=== PATIENT | male | born 1985 ===

== ENCOUNTER 2022-02-06 11:43 | Inpatient (IN) | payer MEDICAID ==
[2022-02-06] MEDS ORDERED: PYRIDOSTIGMINE BROMIDE 60 MG TAB PO NR (12:22)
--- NOTE | 2022-02-06 12:23 | Emergency Department Report ---
HPI - General Chief Complaint: Pain General Time Seen by Provider: 02/06/22 11:56 - HPI HPI: Room 1 The patient is a 36-year-old male present with a chief complaint of myasthenia gravis crisis. Patient states last night he noticed he had difficulty sleeping and subsequently developed some difficulty breathing and diffuse muscle weakness which she states is the hallmark of his myasthenia gravis crisis. Patient states he has been compliant with medication and last took his pyridostigmine at 09: 00 this morning. 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 [facility] Past Medical Hx - Past Medical History Additional medical history: Myasthenia gravis - Surgical History Additional Surgical History: Left ear surgery - Family History Family history: no significant - Social History Smoking Status: Former Smoker Substance Use Type: None ED Review of Systems ROS: Stated complaint: MYASTHENIA GAVIS CRISIS Other details as noted in HPI Constitutional: malaise Eyes: denies: eye pain ENT: denies: throat pain Respiratory: shortness of breath Cardiovascular: denies: chest pain Endocrine: no symptoms reported Gastrointestinal: denies: abdominal pain Genitourinary: denies: dysuria Musculoskeletal: denies: back pain Neurological: denies: headache Physical Exam - Physical Exam Vital Signs: Vital Signs 02/06/22 11:47 Temperature 97.7 F Pulse Rate 99 H Blood Pressure 172/99 [Left] O2 Sat by Pulse 100 Oximetry Physical Exam: GENERAL: The patient is well-developed well-nourished male lying on stretcher appearing fatigued but in no acute distress. Patient answering questions appropriately HEENT: Normocephalic. Atraumatic. Extraocular motions are intact. Patient has moist mucous membranes. NECK: Supple. Trachea midline CHEST/LUNGS: Clear to auscultation. There is no respiratory distress noted. HEART/CARDIOVASCULAR: Regular. There is no tachycardia. There is no gallop rub or murmur. ABDOMEN: Abdomen is soft, nontender. Patient has normal bowel sounds. There is no abdominal distention. SKIN: There is no rash. There is no edema. There is no diaphoresis. NEURO: The patient is awake, alert, and oriented. The patient is cooperative. The patient has no focal neurologic deficits. The patient has normal speech. GCS MUSCULOSKELETAL: There is no evidence of acute injury. ED Course Vital Signs 02/06/22 11:47 Temperature 97.7 F Pulse Rate 99 H Blood Pressure 172/99 [Left] O2 Sat by Pulse 100 Oximetry - Consultations Consultation #1: 02/06/22 12:18 Pulp Mill Supervisor called 02/06/22 12:29 Case discussed with rn hemodialysis Dr Mcrae-we will admit to the ICU. Will come evaluate patient ED Medical Decision Making - Lab Data Result diagrams: 02/06/22 12:39 02/06/22 12:39 - Differential Diagnosis Myasthenia gravis crisis Critical care attestation.: If time is entered above; I have spent that time in minutes in the direct care of this critically ill patient, excluding procedure time. ED Disposition Clinical Impression: Myasthenia gravis in crisis Disposition: ADMITTED INPATIENT Is pt being admited?: Yes Does the pt Need Aspirin: No Condition: Serious Time of Disposition: 13:26 (Care transferred to hospitalist (Dr. Sal))
[2022-02-06 13:14] LABS: Basophils % (Auto) 0.2 % (0.0-1.8); Lymphocytes # (Auto) 0.5 K/mm3 (1.2-5.4); Lymphocytes % (Auto) 6.4 % (13.4-35.0); Mean Corpuscular HGB Conc 30 % (32-34); Mean Corpuscular Volume 74 fl (84-94); Monocytes # (Auto) 0.3 K/mm3 (0.0-0.8); Monocytes % (Auto) 4.1 % (0.0-7.3); Platelet Count 286 K/mm3 (140-440); Red Blood Count 5.75 M/mm3 (3.65-5.03); Red Cell Distribution Width 16.9 % (13.2-15.2)
[2022-02-06 13:20] LABS: Blood Urea Nitrogen 13 mg/dL (9-20); Calcium 9.3 mg/dL (8.4-10.2); Hemolysis Index 8
[2022-02-06 13:25] LABS: BUN/Creatinine Ratio 19
[2022-02-06 13:45] LABS: Hematocrit 42.6 % (35.5-45.6); Hemoglobin 12.9 gm/dl (11.8-15.2)
[2022-02-06] MEDS ORDERED: MORPHINE 4 MG/1 ML INJ IV PRN (13:59)
--- NOTE | 2022-02-06 14:01 | History and Physical Report ---
History of Present Illness Chief complaint: Im weak, History of present illness: 36 YO Male with MG currently taking Cellcept, Mycophenolate, and Prednisone presents ED for evaluation. Patient reports I feel weak". Patient states that he had experienced generalized weakness over the past 1 day with progressive and worsening symptoms over the same timeframe. Patient states that he was able to walk earlier today but he is unable to walk at the time my evaluation and is unable to lift or feel his lower extremities. Patient also acknowledges upper extremity weakness as well as difficulty speaking. EMS was notified and upon arrival the patient was found to be in distress and subsequently transported to [facility] for further care and evaluation of the aforementioned symptoms. The patient was seen and evaluated in the emergency department. All lab and imaging studies reviewed. Patient found to have myasthenia gravis crisis with increased risk for worsening symptoms as well as development of acute hypoxemic respiratory failure. Critical care team consulted. Patient placed on noninvasive positive pressure ventilation in the emergency department and admitted to ICU. IVIG ordered in the emergency department. Patient denies fever, chills, chest pain, palpitation productive cough, skin rash and recent Contact, known exposure to COVID-19. No prior admission for review. No medication listed at time of admission for reconciliation. Advanced care planning conducted in ED. Past History Past Medical History: other (See HPI) Past Surgical History: Other (Left ear surgery) Social history: single. denies: smoking, alcohol abuse, prescription drug abuse Family history: no significant family history, other (Reviewed) Medications and Allergies Allergies Allergy/AdvReac Type Severity Reaction Status Date / Time No Known Allergies Allergy Verified 02/06/22 11:49 Active Meds: Active Medications Acetaminophen (Acetaminophen 325 Mg Tab) 650 mg PO Q6H PRN PRN Reason: Pain MILD(1-3)/Fever >100.5/WEINBERG Albuterol (Albuterol 2.5 Mg/3 Ml Nebu) 2.5 mg IH Q3HRT PRN PRN Reason: Shortness Of Breath Sodium Chloride (Nacl 0.9% 1000 Ml) 1,000 mls @ 75 mls/hr IV DIRECT NESTOR Morphine Sulfate (Morphine 4 Mg/1 Ml Inj) 1 mg IV Q6H PRN PRN Reason: Pain , Severe (7-10) Oxycodone/Acetaminophen (Oxycodone /Acetaminophen 5-325mg Tab) 1 tab PO Q16H PRN PRN Reason: Pain, Moderate (4-6) Sodium Chloride (Sodium Chloride 0.9% 10 Ml Flush Syringe) 10 ml IV BID NESTOR Sodium Chloride (Sodium Chloride 0.9% 10 Ml Flush Syringe) 10 ml IV PRN PRN PRN Reason: LINE FLUSH Review of Systems Constitutional: weakness, no weight loss, no weight gain, no fever, no chills Ears, nose, mouth and throat: voice changes, no ear pain, no nasal discharge Cardiovascular: no chest pain, no orthopnea, no palpitations, no rapid/irregular heart beat, no syncope Respiratory: no cough, no excessive sputum, no hemoptysis, no shortness of breath Gastrointestinal: no abdominal pain, no vomiting, no diarrhea, no change in bowel habits Genitourinary Male: no hematuria, no flank pain, no discharge, no urinary frequency, no urinary hesitancy Rectal: no pain, no incontinence, no bleeding Musculoskeletal: no neck stiffness, no neck pain, no arm numbness/tingling, no low back pain Integumentary: no rash, no pruritis, no sores, no wounds, no jaundice Neurological: no head injury, no transient paralysis, no weakness, no parathesias, no tingling Psychiatric: no anxiety, no change in sleep habits, no insomnia, no hypersomnia, no change in libido, no disorientation Endocrine: no cold intolerance, no heat intolerance, no excessive thirst, no polyuria, no nocturia, no excessive sweating Hematologic/Lymphatic: no easy bruising, no easy bleeding Allergic/Immunologic: no allergic rhinitis Exam - Constitutional Vitals: Temp Pulse Resp BP Pulse Ox 97.7 F 78 18 143/74 99 02/06/22 11:47 02/06/22 12:15 02/06/22 12:15 02/06/22 12:15 02/06/22 12:15 General appearance: Present: mild distress - EENT Eyes: Present: PERRL ENT: hearing intact, clear oral mucosa - Neck Neck: Present: supple, normal ROM - Respiratory Respiratory effort: normal Respiratory: bilateral: diminished - Cardiovascular Heart Sounds: Present: S1 & S2. Absent: rub, click - Extremities Extremities: pulses symmetrical, No edema Peripheral Pulses: within normal limits - Abdominal General gastrointestinal: Present: soft, non-tender, non-distended, normal bowel sounds Male genitourinary: Present: normal - Integumentary Integumentary: Present: clear, warm, dry - Musculoskeletal Musculoskeletal: generalized weakness - Psychiatric Psychiatric: appropriate mood/affect, intact judgment & insight - Neurologic Neurologic: CNII-XII intact, no moves all extremities, no gait normal Results - Labs CBC & Chem 7: 02/06/22 12:39 02/06/22 12:39 Labs: Abnormal lab results 02/06/22 02/06/22 Range/Units 12:39 12:39 RBC 5.75 H (3.65-5.03) M/mm3 MCV 74 L (84-94) fl MCH 23 L (28-32) pg MCHC 30 L (32-34) % RDW 16.9 H (13.2-15.2) % Lymph % (Auto) 6.4 L (13.4-35.0) % Lymph # (Auto) 0.5 L (1.2-5.4) K/mm3 Seg Neutrophils % 89.3 H (40.0-70.0) % Potassium 3.5 L (3.6-5.0) mmol/L Chloride 109.1 H (98-107) mmol/L Carbon Dioxide 20 L (22-30) mmol/L Creatinine 0.7 L (0.8-1.3) mg/dL Glucose 113 H (75-100) mg/dL Assessment and Plan - Patient Problems (1) Myasthenia gravis in crisis Current Visit: No Status: Acute Plan to address problem: Critical care team consulted. IVIG, IV steroid therapy, supportive care. Continue medical management. Will consider plasma exchange if no improvement by hospital day 5. (2) Acute hypoxemic respiratory failure Current Visit: Yes Status: Acute Plan to address problem: Supplemental oxygen, pulse oximetry, nebulizer therapy, noninvasive positive pressure ventilation as clinically indicated, arterial blood gas. Patient admitted to ICU. The high probability of a clinically significant, sudden or life threatening deterioration of the [pulmonary, neuro] system(s) required my full and direct attention, intervention and personal management. The aggregate critical care time was [95] minutes. This time is in addition to time spent performing reported procedures but includes the following: [x] Data Review and interpretation [x] Patient assessment and monitoring of vital signs [x] Documentation [x] Medication orders and management (3) Obesity Current Visit: Yes Status: Acute Qualifiers: Body mass index: BMI 33.0-33.9 Plan to address problem: Balanced diet, increase physical activity discharge, outpatient pulmonary f ollow-up for sleep study, weight reduction. (4) DVT prophylaxis Current Visit: Yes Status: Acute Plan to address problem: SCD to bilateral lower extremities while in bed (5) Advance care planning Current Visit: Yes Status: Acute (6) Preventative health care Current Visit: Yes Status: Acute Plan to address problem: Patient counseled regarding medication compliance, safe driving, balanced diet, weight reduction, outpatient follow-up with primary care physician for all age and risk factor appropriate screening test. +30 minutes.
--- NOTE | 2022-02-06 14:05 | Consultation ---
History of Present Illness Consult date: 02/06/22 Requesting physician: REJI SINGH Reason for consult: other (Myesthenic Crises) History of present illness: PULMONARY/CCM CONSULT NOTE (Full dictation # [id number]) Please see dictated notes for full details Medications and Allergies Allergies Allergy/AdvReac Type Severity Reaction Status Date / Time No Known Allergies Allergy Verified 02/06/22 11:49 Active Meds: Active Medications Acetaminophen (Acetaminophen 325 Mg Tab) 650 mg PO Q6H PRN PRN Reason: Pain MILD(1-3)/Fever >100.5/[place] Albuterol (Albuterol 2.5 Mg/3 Ml Nebu) 2.5 mg IH Q3HRT PRN PRN Reason: Shortness Of Breath Sodium Chloride (Nacl 0.9% 1000 Ml) 1,000 mls @ 75 mls/hr IV DIRECT NESTOR Morphine Sulfate (Morphine 4 Mg/1 Ml Inj) 1 mg IV Q6H PRN PRN Reason: Pain , Severe (7-10) Oxycodone/Acetaminophen (Oxycodone /Acetaminophen 5-325mg Tab) 1 tab PO Q16H PRN PRN Reason: Pain, Moderate (4-6) Sodium Chloride (Sodium Chloride 0.9% 10 Ml Flush Syringe) 10 ml IV BID NESTOR Sodium Chloride (Sodium Chloride 0.9% 10 Ml Flush Syringe) 10 ml IV PRN PRN PRN Reason: LINE FLUSH Physical Examination Vital signs: Vital Signs Temp Pulse BP Pulse Ox 97.7 F 99 H 172/99 100 02/06/22 11:47 02/06/22 11:47 02/06/22 11:47 02/06/22 11:47 Results - Laboratory Findings CBC and BMP: 02/06/22 12:39 02/06/22 12:39 Abnormal lab findings: Abnormal Labs 02/06/22 02/06/22 12:39 12:39 RBC 5.75 H MCV 74 L MCH 23 L MCHC 30 L RDW 16.9 H Lymph % (Auto) 6.4 L Lymph # (Auto) 0.5 L Seg Neutrophils % 89.3 H Potassium 3.5 L Chloride 109.1 H Carbon Dioxide 20 L Creatinine 0.7 L Glucose 113 H
[2022-02-06 14:55] LABS: ABG Base Excess 0.4 mmol/L (-2.0-3.0); ABG HCO3 24.6 mmol/L (20.0-26.0); ABG Methemoglobin 0.5 % (0.0-1.5); ABG PCO2 38.2 mm Hg; ABG PH 7.426 pH Units (7.350-7.450); ABG PO2 84.1 mm Hg (80.0-90.0)
[2022-02-06] MEDS ORDERED: ALBUTEROL 2.5 MG/3 ML NEBU IH PRN (15:00)
[2022-02-06] MEDS ORDERED: MORPHINE 2 MG/1 ML INJ IV PRN (15:00)
[2022-02-06] MEDS ORDERED: IMMUNE GLOB GAM CAPR IV SCH (19:00)
[2022-02-06] MEDS: [UNRECOGNIZED DRUG - OTHER] IV SCH (20:06)
[2022-02-06] MEDS: IMMUNE GLOBUL IV SCH (20:06)
[2022-02-06] MEDS: GLY IV SCH (20:06)
[2022-02-06] MEDS: IGA AVG IV SCH (20:06)
[2022-02-06] MEDS ORDERED: FAMOTIDINE 20 MG TAB PO SCH (22:00)
[2022-02-06] MEDS: ENOXAPARIN 40 MG/0.4 ML INJ SUB-Q SCH (22:22)
[2022-02-06] MEDS: SODIUM CHLORIDE 0.9% 1000 ML 1,000 ML IV SCH (22:23)
--- NOTE | 2022-02-07 02:23 | Consultation ---
DATE OF CONSULTATION: 02/06/2022 PULMONARY CRITICAL CARE CONSULT NOTE CONSULTING PHYSICIAN: ___, ER doctor. REASON FOR CONSULTATION: 1. Shortness of breath. 2. Myasthenic crisis. CHIEF COMPLAINT AND HISTORY OF PRESENT ILLNESS: The patient is a 36-year-old obese male with past medical history significant for a diagnosis of myasthenia gravis for which he states he has been intubated in the past. He is followed according to the patient by a doctor in [place], Dr. Billie Delgado, neurologist, he tells me. He came into the Emergency Room today complaining of myasthenic crisis. He stated that last night he noticed he had difficulty sleeping and then developed some shortness of breath and diffuse muscle weakness. This is the way historically his crisis had begin. He has been compliant with his medications, which include pyridostigmine. He is also on CellCept according to the records and prednisone. 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 He was just driving through the [facility]. We were asked to assist with management. When I stopped by to see him, he was resting in bed. He was able to maintain a conversation. He was still able to write, his shackler strength was weak. His power in his lower extremities at best for me at that time was about a 2-3/5 with a best effort. He denied any chest pain. He denied any cough or expectoration. He denied any recent febrile illness. He states he has been compliant with his medications. He tells me he use a noninvasive ventilator at night, but is not sure if it is for a diagnosis of obstructive sleep apnea. He describes himself as a former smoker with less than [id number] tobacco smoking history. This really is as much of the history of presentation as I have. PAST MEDICAL HISTORY: 1. Myasthenia gravis. 2. Obesity. PAST SURGICAL HISTORY: He has had left ear surgery. MEDICATIONS: He was on at the time I stopped by to see him, according to the medication administration record included the following: Tylenol 650 mg p.o. q.6 hours p.r.n. mild pain or fever, albuterol 2.5 mg nebulized q.3 hours p.r.n. shortness of breath, morphine sulfate 1 mg IV q.6 hours p.r.n. severe pain, Percocet 5/325 one tablet p.o. q.16 hours p.r.n. moderate pain. He received 1 dose of pyridostigmine 60 mg earlier. ALLERGIES: No known drug allergies. DIET: Obese gentleman. Denies acute weight loss or gain in the preceding few weeks to months. FAMILY AND SOCIAL HISTORY: Lives in the community. Denies current alcohol, tobacco or illicit drug use or abuse. No significant family history otherwise. REVIEW OF SYSTEMS: No loss of consciousness. No new onset seizures. He does have a new onset generalized weakness. He denies polydipsia, polyuria. He denies any heat or cold intolerance. He denies any history of seizures. He denies gross hematochezia or melena. Denies gross hematuria. Denies hematemesis. Denies hemoptysis. He complains of blurry vision. A complete 13-system review of system was obtained. Pertinent positives and/or negatives as in body of history above, otherwise noncontributory. PHYSICAL EXAMINATION: VITAL SIGNS: At presentation, he was afebrile, temperature 97.7 degrees Fahrenheit, pulse of 99, respiratory rate of 18, blood pressure 172/99, O2 sats 100%, inspired oxygen concentration at that time was not recorded. When I stopped by to see him, his O2 sats were 99% on room air. GENERAL: Again, he is a young, obese male. Normocephalic, atraumatic, talking to me in mostly full sentences, but with mildly increased respiratory effort at rest. HEAD, EYES, EARS, NOSE AND THROAT: Anicteric. No conjunctival erythema. Oropharynx was moist. No gross jugular venous distention, no thyromegaly. He does have a large neck circumference. Grossly, there were no palpable lymph nodes in the supraclavicular or submandibular lymph node chains. LUNGS: Auscultation of both lung resendiz good bilateral air movement. No significant dullness to percussion. No wheezing. HEART: Sounds 1 and 2 are heard at the time of my evaluation. Regular rate and rhythm without overt rubs or murmurs. ABDOMEN: Soft, full, protuberant. Bowel sounds are positive, nontender, no palpable hepatosplenomegaly. EXTREMITIES: Without overt digital clubbing or cyanosis. No pedal edema. Pedal pulses are 2+ bilaterally. NEUROLOGIC: Pupils were equal, round, about 4 mm, reactive to light. Extraocular muscle movements were intact. He had spontaneous movements to all extremities, but the power in his upper extremities were about 3/5 at best and in the lower extremities 2-3/5. No spasticity, no fasciculations. SKIN: Normal turgor in the areas examined without overt cellulitis or rash. Please see the wound care nurses' notes for full description of his skin. PSYCHIATRIC: Mood was somewhat depressed. Affect was flat. He had intact judgment and insight. LABORATORY DATA: From my review are as follows: White cell count 8300, hemoglobin 12.9, hematocrit 42.6, platelet count 286. Serum sodium was 144, potassium 3.5, chloride 109, bicarbonate 20, BUN 13, creatinine 0.7, glucose was 113. No microbiology studies. No radiographic studies. ASSESSMENT: 1. Myasthenia crisis. 2. Obesity. 3. Possible obstructive sleep apnea/obesity hypoventilation syndrome. 4. Blurry vision. 5. Mild hypokalemia. 6. Mild metabolic acidosis. PLAN: We have discussed with the Neurology team. We have spoken with pharmacy. We should be able to get IVIG as a first line therapy. Order has been placed. The forced vital capacity has been done. It is about exactly at about 1.50 liters, I will put him empirically on bilevel positive airway pressure ventilation therapy 16 IPAP, 8 EPAP and a backup rate of 10. Arterial blood gas is going to be ordered and done now. Oxygen will be weaned to keep sats greater than or equal to about 90%. Aspiration precautions will be maintained. He will be continued on his other chronic disease medications. Hopefully, he shows progress. I will repeat the forced vital capacity in the morning. If he does decompensate further, it shows no improvement with the IVIG, transfer options will be sought to get him to a center where he can get plasmapheresis. We will hold on high dose steroids for now in case of a paradoxical reaction. He is going to be placed on GI prophylaxis as well as DVT prophylaxis. Flu and pneumonia vaccination will be addressed per protocol. Thank you very much for the consult. I should mention, he will be admitted to the intensive care unit. He is critically ill and will be placed on life-sustaining interventions including continuous noninvasive ventilation therapy at this time. He is at high risk of from cardiopulmonary system decompensation At this time, I spent about 35-40 minutes of critical care time without overlap and excluding any procedural time that may be necessary. Further interventions will depend on his course. TID: [id number] RECEIPT: [id number] FAUSTO/ILIANA
[2022-02-07 04:27] LABS: Basophils % (Auto) 0.7 % (0.0-1.8); Eosinophils % (Auto) 0.4 % (0.0-4.3); Hematocrit 36.6 % (35.5-45.6); Hemoglobin 11.5 gm/dl (11.8-15.2); Lymphocytes # (Auto) 1.7 K/mm3 (1.2-5.4); Lymphocytes % (Auto) 29.4 % (13.4-35.0); Mean Corpuscular HGB Conc 32 % (32-34); Mean Corpuscular Volume 72 fl (84-94); Monocytes # (Auto) 0.5 K/mm3 (0.0-0.8); Monocytes % (Auto) 9.1 % (0.0-7.3); Platelet Count 247 K/mm3 (140-440); Red Cell Distribution Width 17.3 % (13.2-15.2)
[2022-02-07 04:48] LABS: Alanine Aminotransferase 11 units/L (7-56); BUN/Creatinine Ratio 15; Blood Urea Nitrogen 12 mg/dL (9-20); Hemolysis Index 7
--- NOTE | 2022-02-07 08:44 | Progress Note ---
Assessment and Plan Myasthenic crisis Obesity Possible ANTON / OHS Blurry vision Mild hypokalemia Mild metabolic acidosis - attempt to give breaks of BIPAP during the day - get CT Chest in am to evaluate thymus / occult lesion (Has not had w/up yet per patient) - continue IVIG - repeat NIF (MIP) & VC maneuver - avoid aminoglycosides, flouroquinolones etc - neurology consultation - continue accuchecks with glycemic control per SSI (While critically ill target blood glucose of 140-180 mg/dL; avoid hypoglycemia) - continue to wean supplemental oxygen for target O2 sat's > 90% acutely - aspiration precautions - prn bronchodilators with pulmonary hygiene per RT - avoid nephrotoxins, renally dose all medications - continue to avoid benzodiazepine's, reduce the possibility of delirium - AB's per ID rec's - prn analgesia per pain score - Maintenance of sleep-wake cycle, avoid delirium - G.I. & VTE prophylaxis - PT/OT/ROM exercises - mobility protocols for pressure ulcer prophylaxis - Monitor hemodynamics closely - continue other care per attending / other consultants - discharge planning ongoing concurrently .... Re-evaluate in am & prn CONDITION: CRITICAL PROGNOSIS: GUARDED CODE STATUS: FULL CODE The high probability of a clinically significant, sudden or life-threatening deterioration of the [respiratory, cardiovascular & neurologic] system(s) required my full and direct attention, intervention and personal management. The aggregate critical care time was [34] minutes without overlap. Time includes spent on; [x] Data Review and interpretation [x] Patient assessment and monitoring of vital signs [x] Documentation [x] Medication orders and management Subjective Date of service: 02/07/22 Principal diagnosis: Myasthenic crisis; Obesity; Possible ANTON/OHS; Blurry vision; Hypokalemia Interval history: Patient is seen today for: Myasthenic crisis; Obesity; Possible ANTON / OHS; Blurry vision; Mild hypokalemia; Mild metabolic acidosis Seen and examined at bedside; 24hour events reviewed; nursing and respiratory care staff consulted; no adverse overnight events reported to me; resting in bed; blurry vision improved; feels a little stronger / about the same; denies chest pain; denies N/V/F/C Objective Vital Signs - 12hr 02/06/22 02/06/22 02/06/22 20:45 21:01 21:31 Temperature Pulse Rate 59 L 58 L 63 Pulse Rate [ None] Respiratory 15 12 24 Rate Blood Pressure 121/72 120/74 130/85 O2 Sat by Pulse 99 100 96 Oximetry 02/06/22 02/06/22 02/06/22 21:58 22:01 22:30 Temperature 97.8 F Pulse Rate 56 L 57 L Pulse Rate [ None] Respiratory 15 14 Rate Blood Pressure 126/73 118/77 O2 Sat by Pulse 100 100 Oximetry 02/06/22 02/06/22 02/06/22 22:56 22:59 23:00 Temperature Pulse Rate 56 L Pulse Rate [ 56 L None] Respiratory 14 15 17 Rate Blood Pressure 150/85 116/77 O2 Sat by Pulse 100 100 100 Oximetry 02/06/22 02/06/22 02/06/22 23:01 23:02 23:15 Temperature Pulse Rate 57 L 54 L 56 L Pulse Rate [ None] Respiratory 15 20 Rate Blood Pressure 116/77 124/77 O2 Sat by Pulse 100 100 Oximetry 02/07/22 02/07/22 02/07/22 00:00 01:00 02:01 Temperature Pulse Rate 49 L 47 L 47 L Pulse Rate [ None] Respiratory 16 15 14 Rate Blood Pressure 120/77 120/73 100/55 O2 Sat by Pulse 100 100 100 Oximetry 02/07/22 02/07/22 02/07/22 03:00 03:20 04:00 Temperature Pulse Rate 44 L 46 L Pulse Rate [ None] Respiratory 13 11 L Rate Blood Pressure 101/55 O2 Sat by Pulse 100 100 Oximetry 02/07/22 02/07/22 02/07/22 04:01 04:07 05:00 Temperature 98 F Pulse Rate 70 60 Pulse Rate [ None] Respiratory 13 26 H Rate Blood Pressure 111/62 O2 Sat by Pulse 100 100 Oximetry 02/07/22 02/07/22 02/07/22 05:01 06:00 07:54 Temperature Pulse Rate 50 L 64 54 L Pulse Rate [ None] Respiratory 14 15 18 Rate Blood Pressure 125/73 116/71 108/64 O2 Sat by Pulse 100 100 100 Oximetry Constitutional: no acute distress, other (young obese male on BIPAP ) Eyes: non-icteric ENT: oropharynx moist Neck: supple, no lymphadenopathy, no JVD, other (large circumference) Effort: mildly labored Ascultation: Bilateral: clear, diminished breath sounds Percussion: Bilateral: not dull Cardiovascular: regular rate and rhythm Gastrointestinal: normoactive bowel sounds, soft, non-tender, non-distended (protuberant) Integumentary: normal Extremities: no cyanosis, no edema, pulses normal, no ischemia or petechiae Neurologic: non-focal exam (grossly; generalized weakness), pupils equal and round, CN II-XII normal, other (power 3/5 bilaterally) CBC and BMP: 02/07/22 04:15 02/07/22 04:15 ABG, PT/INR, D-dimer: ABG ABG pH 7.426 pH Units (7.350-7.450) 02/06/22 13:59 ABG pCO2 38.2 mm Hg 02/06/22 13:59 ABG pO2 84.1 mm Hg (80.0-90.0) 02/06/22 13:59 ABG O2 Saturation 97.0 % (95.0-99.0) 02/06/22 13:59 Abnormal lab findings: Abnormal Labs 02/06/22 02/06/22 02/06/22 12:39 12:39 13:59 RBC 5.75 H Hgb MCV 74 L MCH 23 L MCHC 30 L RDW 16.9 H Lymph % (Auto) 6.4 L [place] % (Auto) Lymph # (Auto) 0.5 L Seg Neutrophils % 89.3 H ABG Hemoglobin 12.6 L Potassium 3.5 L Chloride 109.1 H Carbon Dioxide 20 L Creatinine 0.7 L Glucose 113 H 02/07/22 04:15 RBC 5.10 H Hgb 11.5 L MCV 72 L MCH 23 L MCHC RDW 17.3 H Lymph % (Auto) [place] % (Auto) 9.1 H Lymph # (Auto) Seg Neutrophils % ABG Hemoglobin Potassium Chloride Carbon Dioxide Creatinine Glucose CT scan - chest: pending Allied health notes reviewed: nursing
--- NOTE | 2022-02-07 09:15 | Progress Note ---
<MARNI RICHEY - Last Filed: 02/07/22 17:00> Assessment and Plan Assessment and plan: This is a 36-year-old male with known past medical history of obesity and myasthenia gravis admitted for myasthenia gravis crisis. Hospital Course to Date: 02/07: S/p X1 dose of IV IG overnight, patient reported feeling much better and stronger this am, moving all extremities. Plan to wean off Bipap this am. Okay to start a diet if patient pass bedside swallow. D/W CCM plan for CT chest w con tomorrow to r/o thymoma. Neurology consulted. 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 He was passing through [place] when symptoms started - Patient voiced compliance with home meds: Cellcept, Mycophenolate, and Prednisone - On IV IG X5days - Will consider plasma exchange if no improvement by hospital day 5 - CCM on consult, appreciated recommendations - Neurology consult pending - Patient reported that his neurologist in [place] is Dr. Billie Delgado #Acute Hypoxemic Respiratory Failure #Probable ANTON- On CPAP at home #Former Smoker - most likely related to MG crisis - Stable on Bipap this am - Continue O2 supplementation and wean as tolerated - Continue IV IG - Continue SPO2 monitoring for SPO2 goal above 92% - CCM on consult, appreciated recommendations #Obesity - Balanced diet, increase physical activity discharge, outpatient pulmonary foll ow-up for sleep study, weight reduction. #GI/DVT Prophylaxis - PPI- Pepcid - Lovenox SubQ - SCD to bilateral lower extremities while in bed #Advance Care Planning - Disease education data, care plan, diagnoses, and prognosis were discussed with patient at the bedside. Patient is a Full code. Patient acknowledged understanding and agreement with current care plan. - Patient reported in case of an emergency and he is unable to make his own decision, his NOK is his aunt who resides in [place], [place]. Heike Araujo, phone# The high probability of a clinically significant, sudden or life threatening deterioration of the [multiple] system(s) required my full and direct attention, intervention and personal management. The aggregate critical care time was [60] minutes. This time is in addition to time spent performing reported procedures but includes the following: [x] Data Review and interpretation [x] Patient assessment and monitoring of vital signs [x] Documentation [x] Medication orders and management Disposition Plan: ICU Total Time Spent with Patient (Minutes): 60 History Interval history: Patient seen and examined at the bedside. Fully AAO, on Bipap. Voiced felling much better and stronger this morning. Patient is moving all extremities with mild generalized weakness this am. No signs of any acute distress noted, VSS. ADAL overnight Hospitalist Physical - Constitutional Vitals: Temp Pulse Resp BP Pulse Ox 98 F 54 L 18 108/64 100 02/07/22 05:00 02/07/22 07:54 02/07/22 07:54 02/07/22 07:54 02/07/22 07:54 General appearance: Present: no acute distress, obese - EENT Eyes: Present: PERRL, EOM intact ENT: hearing intact - Neck Neck: Present: normal ROM - Respiratory Respiratory effort: normal Respiratory: bilateral: diminished - Cardiovascular Rhythm: regular Heart Sounds: Present: S1 & S2 - Extremities Extremities: no ischemia, pulses intact, pulses symmetrical Peripheral Pulses: within normal limits - Abdominal General gastrointestinal: soft, non-distended, normal bowel sounds - Integumentary Integumentary: Present: clear, warm, dry - Psychiatric Psychiatric: appropriate mood/affect, cooperative - Neurologic Neurologic: CNII-XII intact, moves all extremities (with generalized weakness) - Allied Health Allied health notes reviewed: nursing Results - Labs CBC & Chem 7: 02/07/22 04:15 02/07/22 04:15 Labs: Laboratory Last Values WBC 5.9 K/mm3 (4.5-11.0) 02/07/22 04:15 RBC 5.10 M/mm3 (3.65-5.03) H 02/07/22 04:15 Hgb 11.5 gm/dl (11.8-15.2) L 02/07/22 04:15 Hct 36.6 % (35.5-45.6) D 02/07/22 04:15 MCV 72 fl (84-94) L 02/07/22 04:15 MCH 23 pg (28-32) L 02/07/22 04:15 MCHC 32 % (32-34) 02/07/22 04:15 RDW 17.3 % (13.2-15.2) H 02/07/22 04:15 Plt Count 247 K/mm3 (140-440) 02/07/22 04:15 Lymph % (Auto) 29.4 % (13.4-35.0) 02/07/22 04:15 [place] % (Auto) 9.1 % (0.0-7.3) H 02/07/22 04:15 Eos % (Auto) 0.4 % (0.0-4.3) 02/07/22 04:15 Baso % (Auto) 0.7 % (0.0-1.8) 02/07/22 04:15 Lymph # (Auto) 1.7 K/mm3 (1.2-5.4) 02/07/22 04:15 [place] # (Auto) 0.5 K/mm3 (0.0-0.8) 02/07/22 04:15 Eos # (Auto) 0.0 K/mm3 (0.0-0.4) 02/07/22 04:15 Baso # (Auto) 0.0 K/mm3 (0.0-0.1) 02/07/22 04:15 Seg Neutrophils % 60.4 % (40.0-70.0) 02/07/22 04:15 Seg Neutrophils # 3.6 K/mm3 (1.8-7.7) 02/07/22 04:15 ABG pH 7.426 pH Units (7.350-7.450) 02/06/22 13:59 ABG pCO2 38.2 mm Hg 02/06/22 13:59 ABG pO2 84.1 mm Hg (80.0-90.0) 02/06/22 13:59 ABG HCO3 24.6 mmol/L (20.0-26.0) 02/06/22 13:59 ABG O2 Saturation 97.0 % (95.0-99.0) 02/06/22 13:59 ABG O2 Content 17.0 (0.0-44) 02/06/22 13:59 ABG Base Excess 0.4 mmol/L (-2.0-3.0) 02/06/22 13:59 ABG Hemoglobin 12.6 gm/dl (14.0-18.0) L 02/06/22 13:59 ABG Carboxyhemoglobin 1.2 % (0.0-5.0) 02/06/22 13:59 ABG Methemoglobin 0.5 % (0.0-1.5) 02/06/22 13:59 Oxyhemoglobin 95.4 % (95.0-99.0) 02/06/22 13:59 FiO2 21 % 02/06/22 13:59 Sodium 142 mmol/L (137-145) 02/07/22 04:15 Potassium 3.6 mmol/L (3.6-5.0) 02/07/22 04:15 Chloride 106.9 mmol/L (98-107) 02/07/22 04:15 Carbon Dioxide 24 mmol/L (22-30) 02/07/22 04:15 Anion Gap 15 mmol/L 02/07/22 04:15 BUN 12 mg/dL (9-20) 02/07/22 04:15 Creatinine 0.8 mg/dL (0.8-1.3) 02/07/22 04:15 Estimated GFR > 60 ml/min 02/07/22 04:15 BUN/Creatinine Ratio 15 % 02/07/22 04:15 Glucose 83 mg/dL (75-100) 02/07/22 04:15 Calcium 9.0 mg/dL (8.4-10.2) 02/07/22 04:15 Total Bilirubin 0.40 mg/dL (0.1-1.2) 02/07/22 04:15 AST 9 units/L (5-40) 02/07/22 04:15 ALT 11 units/L (7-56) 02/07/22 04:15 Alkaline Phosphatase 75 units/L (35-129) 02/07/22 04:15 Total Protein 7.0 g/dL (6.3-8.2) 02/07/22 04:15 Albumin 4.0 g/dL (3.9-5) 02/07/22 04:15 Albumin/Globulin Ratio 1.3 % 02/07/22 04:15 Roberson/IV: Voiding Method Urinal Active Medications - Current Medications Current Medications: Generic Name Dose Route Start Last Admin Trade Name Freq PRN Reason Stop Dose Admin Acetaminophen 650 mg 02/06/22 15:00 Acetaminophen 325 Mg Tab PO Q6H PRN Pain MILD(1-3)/Fever >100.5/WEINBERG Albuterol 2.5 mg 02/06/22 15:00 Albuterol 2.5 Mg/3 Ml Nebu IH Q3HRT PRN Shortness Of Breath Enoxaparin Sodium 40 mg 02/06/22 22:00 02/06/22 22:22 Enoxaparin 40 Mg/0.4 Ml Inj SUB-Q 40 mg QDAY@2200 NESTOR Administration Protocol Famotidine 20 mg 02/06/22 22:00 02/06/22 22:23 Famotidine 20 Mg Tab PO Not Given QHS NESTOR Sodium Chloride 1,000 mls @ 75 mls/hr 02/06/22 14:00 02/06/22 22:23 Nacl 0.9% 1000 Ml IV 75 mls/hr DIRECT NESTOR Administration IMMUNE GLOBUL G/GLY/IGA AVG 46 351 mls @ 100 mls/hr 02/06/22 19:00 02/06/22 23:59 20 gm/ IMMUNE GLOBUL G/GLY/ IV 02/10/22 22:31 Infused IGA AVG 46 10 gm/ IMMUNE Q24H NESTOR Infusion GLOBUL G/GLY/IGA AVG 46 5 gm/ Miscellaneous Information Morphine Sulfate 1 mg 02/06/22 15:00 Morphine 2 Mg/1 Ml Inj IV Q6H PRN Pain , Severe (7-10) Oxycodone/Acetaminophen 1 tab 02/06/22 15:00 Oxycodone /Acetaminophen 5-325mg Tab PO Q16H PRN Pain, Moderate (4-6) Sodium Chloride 10 ml 02/06/22 22:00 02/06/22 22:23 Sodium Chloride 0.9% 10 Ml Flush Syringe IV 10 ml BID NESTOR Administration Sodium Chloride 10 ml 02/06/22 13:59 Sodium Chloride 0.9% 10 Ml Flush Syringe IV PRN PRN LINE FLUSH <LELO ODONNELL - Last Filed: 02/08/22 07:17> Assessment and Plan Assessment and plan: I saw and evaluated the patient. I agree with the findings and the plan of care as documented in the Nurse Practitioner's~note, with the following corrections and additions. Attempted to transfer patient to [facility] but was declined due to lack of bed [facility] is not accepting, will try [facility] Hospitalist Physical - Constitutional Vitals: Temp Pulse Resp BP Pulse Ox 98.1 F 63 14 120/62 100 02/07/22 23:59 02/08/22 07:00 02/08/22 07:00 02/08/22 07:00 02/08/22 07:00 Results - Labs CBC & Chem 7: 02/08/22 04:23 02/08/22 04:23 Labs: Laboratory Last Values WBC 7.2 K/mm3 (4.5-11.0) 02/08/22 04:23 RBC 4.92 M/mm3 (3.65-5.03) 02/08/22 04:23 Hgb 11.0 gm/dl (11.8-15.2) L 02/08/22 04:23 Hct 36.2 % (35.5-45.6) 02/08/22 04:23 MCV 74 fl (84-94) L 02/08/22 04:23 MCH 22 pg (28-32) L 02/08/22 04:23 MCHC 30 % (32-34) L 02/08/22 04:23 RDW 17.1 % (13.2-15.2) H 02/08/22 04:23 Plt Count 225 K/mm3 (140-440) 02/08/22 04:23 Lymph % (Auto) 29.4 % (13.4-35.0) 02/07/22 04:15 [place] % (Auto) 9.1 % (0.0-7.3) H 02/07/22 04:15 Eos % (Auto) 0.4 % (0.0-4.3) 02/07/22 04:15 Baso % (Auto) 0.7 % (0.0-1.8) 02/07/22 04:15 Lymph # (Auto) 1.7 K/mm3 (1.2-5.4) 02/07/22 04:15 [place] # (Auto) 0.5 K/mm3 (0.0-0.8) 02/07/22 04:15 Eos # (Auto) 0.0 K/mm3 (0.0-0.4) 02/07/22 04:15 Baso # (Auto) 0.0 K/mm3 (0.0-0.1) 02/07/22 04:15 Seg Neutrophils % 60.4 % (40.0-70.0) 02/07/22 04:15 Seg Neutrophils # 3.6 K/mm3 (1.8-7.7) 02/07/22 04:15 ABG pH 7.367 pH Units (7.350-7.450) 02/07/22 12:00 ABG pCO2 44.1 mm Hg 02/07/22 12:00 ABG pO2 72.6 mm Hg (80.0-90.0) L 02/07/22 12:00 ABG HCO3 24.7 mmol/L (20.0-26.0) 02/07/22 12:00 ABG O2 Saturation 95.9 % (95.0-99.0) 02/07/22 12:00 ABG O2 Content 16.2 (0.0-44) 02/07/22 12:00 ABG Base Excess -0.7 mmol/L (-2.0-3.0) 02/07/22 12:00 ABG Hemoglobin 12.2 gm/dl (14.0-18.0) L 02/07/22 12:00 ABG Carboxyhemoglobin 1.1 % (0.0-5.0) 02/07/22 12:00 ABG Methemoglobin 0.5 % (0.0-1.5) 02/07/22 12:00 Oxyhemoglobin 94.4 % (95.0-99.0) L 02/07/22 12:00 FiO2 50 % 02/07/22 12:00 Sodium 142 mmol/L (137-145) 02/08/22 04:23 Potassium 3.9 mmol/L (3.6-5.0) 02/08/22 04:23 Chloride 109.3 mmol/L (98-107) H 02/08/22 04:23 Carbon Dioxide 23 mmol/L (22-30) 02/08/22 04:23 Anion Gap 14 mmol/L 02/08/22 04:23 BUN 12 mg/dL (9-20) 02/08/22 04:23 Creatinine 0.6 mg/dL (0.8-1.3) L 02/08/22 04:23 Estimated GFR > 60 ml/min 02/08/22 04:23 BUN/Creatinine Ratio 20 % 02/08/22 04:23 Glucose 94 mg/dL (75-100) 02/08/22 04:23 Calcium 8.6 mg/dL (8.4-10.2) 02/08/22 04:23 Total Bilirubin 0.40 mg/dL (0.1-1.2) 02/07/22 04:15 AST 9 units/L (5-40) 02/07/22 04:15 ALT 11 units/L (7-56) 02/07/22 04:15 Alkaline Phosphatase 75 units/L (35-129) 02/07/22 04:15 Total Protein 7.0 g/dL (6.3-8.2) 02/07/22 04:15 Albumin 4.0 g/dL (3.9-5) 02/07/22 04:15 Albumin/Globulin Ratio 1.3 % 02/07/22 04:15 Microbiology: Microbiology 02/07/22 12:30 Tracheal Aspirate Sputum Culture - Preliminary Roberson/IV: Voiding Method Urinal Active Medications - Current Medications Current Medications: Generic Name Dose Route Start Last Admin Trade Name Freq PRN Reason Stop Dose Admin Acetaminophen 650 mg 02/06/22 15:00 Acetaminophen 325 Mg Tab PO Q6H PRN Pain MILD(1-3)/Fever >100.5/WEINBERG Albuterol 2.5 mg 02/06/22 15:00 Albuterol 2.5 Mg/3 Ml Nebu IH Q3HRT PRN Shortness Of Breath Enoxaparin Sodium 40 mg 02/06/22 22:00 02/07/22 21:05 Enoxaparin 40 Mg/0.4 Ml Inj SUB-Q 40 mg QDAY@2200 NESTOR Administration Protocol Famotidine 20 mg 02/07/22 22:00 02/07/22 21:05 Famotidine 20 Mg/2 Ml Inj IV 20 mg BID NESTOR Administration Fentanyl 50 mcg 02/07/22 10:55 02/07/22 11:12 Fentanyl 100 Mcg/2 Ml Inj IV 50 mcg Q10MIN PRN Administration ANALGESIA Hydrophilic Ointment 1 applic 02/07/22 10:55 Lip Therapy Vaseline TP Q2HR PRN Dry Lips Sodium Chloride 1,000 mls @ 75 mls/hr 02/06/22 14:00 02/07/22 20:50 Nacl 0.9% 1000 Ml IV 75 mls/hr DIRECT NESTOR Administration IMMUNE GLOBUL G/GLY/IGA AVG 46 351 mls @ 100 mls/hr 02/06/22 19:00 02/07/22 23:37 20 gm/ IMMUNE GLOBUL G/GLY/ IV 02/10/22 22:31 Infused IGA AVG 46 10 gm/ IMMUNE Q24H NESTOR Infusion GLOBUL G/GLY/IGA AVG 46 5 gm/ Miscellaneous Information Fentanyl Citrate 2,000 mcg in 100 mls @ 5.11 mls/hr 02/07/22 11:00 02/08/22 05:32 Fentanyl Drip Premix IV 2 mcg/kg/hr TITR NESTOR 10.219 mls/hr Titration Protocol 1 MCG/KG/HR Morphine Sulfate 1 mg 02/06/22 15:00 Morphine 2 Mg/1 Ml Inj IV Q6H PRN Pain , Severe (7-10) Multi-Ingred Cream/Lotion/Oil/Oint 1 applic 02/07/22 10:55 Mineral Oil/Petrolatum, White Ophth Oint 3.5 Gm OU Q4HR PRN Dry Eye(s) Oxycodone/Acetaminophen 1 tab 02/06/22 15:00 Oxycodone /Acetaminophen 5-325mg Tab PO Q16H PRN Pain, Moderate (4-6) Senna/Docusate Sodium 1 tab 02/07/22 22:00 02/07/22 21:06 Sennosides/Docusate Sodium 8.6/50 Mg Tab FEEDTUBE 1 tab BID NESTOR Administration Sodium Chloride 10 ml 02/06/22 22:00 02/07/22 21:05 Sodium Chloride 0.9% 10 Ml Flush Syringe IV 10 ml BID NESTOR Administration Sodium Chloride 10 ml 02/06/22 13:59 Sodium Chloride 0.9% 10 Ml Flush Syringe IV PRN PRN LINE FLUSH Nutrition/Malnutrition Assess - Dietary Evaluation Nutrition/Malnutrition Findings: Nutrition Notes Start: 02/07/22 13:09 Freq: Status: Active Protocol: Document 02/07/22 13:09 PRADEEP (Rec: 02/07/22 13:44 PRADEEP [id number]) Nutrition Notes Need for Assessment generated from: MD Order Initial or Follow up Assessment Other Pertinent Diagnosis Myasthenia Gravis. Current Diet NPO (since 02/06 13:59), TF- Jevity 1.2 Zana @ 70 ml/hr ( from D 02/07). Labs/Tests 02/07: WNL. Pertinent Medications 02/07: nutritionally unremarkable. Height 5 ft 10 in Weight 102.194 kg [place] Body Weight (kg) 75.45 BMI 32.3 Intake Prior to Admission Good Weight change and time frame Pt denies having loss body weight [employer]. Weight Status Obese Subjective/Other Information RD consult for difficulty chewing assessment and write/ manage TF. Pt currently on NPO. Pt is on Mechanical ventilation, O2 saturation @ 100%, according to Mechanical Ventilation History Assessment notes. Pt was intubated at 11:00 on 02/07, according to Event notes. Pt awaiting for tranfer to [facility], according to Event notes. Percent of energy/protein needs met: Pt currently on NPO. Prescribed TF-Jevity 1.2 Zana @ 70 ml/hr provides for energy/ protein needs (2,010 Kcal/93 g ) during LOS, 98% Kcal; 104% AA. Burn Absent Trauma Absent GI Symptoms None Food Allergy No Skin Integrity/Comment Assessment WNL. Current % PO Other Minimum of two criteria No Fluid Accumulation N/A Reduced Jacquard Card Lacer Strength N/A (non-severe) Protein-Calorie Malnutrition N\A #1 Nutrition Diagnosis Inadequate oral intake Etiology Pt is on Mechanical Ventilation. As Evidenced by Signs and Symptoms Pt currently on NPO. Is patient on ventilator? Yes Is Patient Ambulatory and/or Out of Bed No REE-([facility]-confined to bed) 2352.060 Kcal/Kg value to use for calculation 20 Approximate Energy Requirements Using 2044 kcal/Kg Calculation Used for Recommendations Kcal/kg Additional Notes Protein: 0.8-1 g/Kg AdjBW; 71- 89 g/day. Fluids: 1 ml/Kcal, or as per MD. Nutrition Intervention Nutrition Support: Start TF-Jevity 1.2 Zana @ 70 ml/hr. Flush: 120 ml water Q 4 hr, or as per MD. Kcal 2,010 Protein (gm) 93 Carbohydrates (gm) 284 Fat (gm) 66 Fluid (mL) 1,352 Fiber (gm) 30 % RDI: 98% Kcal; 104% AA. Goal #1 Provide at least 75% of energy /protein needs through Enteral Feeding during LOS. Follow-Up By: 02/09/22 Additional Comments Start monitoring TF tolerance and BM.
[2022-02-07] MEDS ORDERED: IMMUNE GLOBULIN G/GLY/IGA AVG 46 10 GM/100 ML VIAL IV SCH (10:00)
[2022-02-07] MEDS ORDERED: ROCURONIUM 50 MG/5 ML INJ IV ONE (10:55)
[2022-02-07] MEDS ORDERED: LIP THERAPY VASELINE TP PRN (10:55)
[2022-02-07] MEDS ORDERED: SUCCINYLCHOLINE CHLORIDE 200 MG/10 ML INJ MDV ONE (10:55)
[2022-02-07] MEDS ORDERED: fentaNYL 100 MCG/2 ML INJ IV PRN (10:55)
[2022-02-07] MEDS ORDERED: MINERAL OIL/PETROLATUM, WHITE OPHTH OINT 3.5 GM OU PRN (10:55)
[2022-02-07] MEDS ORDERED: ETOMIDATE 20 MG/10 ML INJ IV ONE (10:55)
[2022-02-07] MEDS ORDERED: propofoL 200 MG/20 ML VIAL IV ONE ×2 (11:00→11:26)
[2022-02-07] MEDS: fentaNYL DRIP Premix 2,000 MCG/100 ML BAG IV SCH ×3 (11:14→18:28)
[2022-02-07] MEDS ORDERED: SCOPOLAMINE TRANSDERMAL PATCH 72 HR TD ONE (11:22)
--- NOTE | 2022-02-07 11:23 | Event Note ---
Date: 02/07/22 Alerted by nursing staffs that patient complained of difficulty breathing. Upon assessment, patient appeared flushed, and unable to hold his head up and drooling. Patient remains fully AAO, reported that he is getting worst and is having difficultly breathing, SPO2 remains at 100%. Contacted the hotel office manager, Dr. Martinez, he recommended stat intubation. Patient agreed to intubation and was successfully intubated at the bedside by anesthesia. Patient is now stable on the vent, Fio2 at 50%, Peep of 6, rate 14, VT 450. stat Chest X-ray ordered for ETT placement. Giving the sudden progression of patient's condition, transfer process to a tertiary center was initiated. Patient is on the waiting list for possible transfer to [facility]. Per patient's request, NOK who is his aunt, Heike Araujo, was notified @ . Patient's diagnosis, recent events, and plan of care were thoroughly discussed, including possible transfer to [facility]. All questions and concerns were addressed at this time. Patient's aunt verbalized understanding of the info provided and agreed to current care plan. Team will continue to follow up with any further updates. +CTT 30minutes
--- NOTE | 2022-02-07 11:25 | Event Note ---
Date: 02/07/22 02/07/2022, 11:00-11:10 Anesthesia called to bedside for intubation, 36 male, difficult breathing, drooling from mouth, H/O Myasthenia Gravis disease. VSS, Id'd patient, he acknowledged the need to be intubated and has had this before. RT, RN, ER DR at bedside. IV induction with 200 mg propofol IV, Oral intubations with 3 mac glide scope, 7.[address] with out difficulty, +etco2 indicator color change, BBS, Chest rise, ETT 20 at teeth, VSS stable. Care resumed by RT and ICU staff.
[2022-02-07] MEDS ORDERED: SCOPOLAMINE TRANSDERMAL PATCH 72 HR TD SCH ×2 (12:00→14:00)
--- NOTE | 2022-02-07 12:37 | XRay Report ---
CHEST 1 VIEW INDICATION: ETT placement. COMPARISON: None. FINDINGS: Support devices: Endotracheal tube tip is in satisfactory position approximately 2 cm above the celena a. Esophagogastric tube extends into the stomach. Heart: Stable. Lungs/Pleura: There are low lung volumes with presumed atelectatic change in the right lung base. No pneumothorax. IMPRESSION: 1. Endotracheal tube is in satisfactory position. Signer Name: Yoan Marcano MD Signed: 02/07/2022 12:32 PM Workstation Name: [id number]
--- NOTE | 2022-02-07 12:38 | XRay Report ---
ABDOMEN 1 VIEW INDICATION / CLINICAL INFORMATION: tube placement. COMPARISON: None available. FINDINGS: TUBES / LINES: An esophagogastric tube terminates over the proximal gastric body. BOWEL GAS PATTERN: No significant abnormality. FREE AIR / EXTRALUMINAL GAS: None seen. ADDITIONAL FINDINGS: No significant additional findings. IMPRESSION: Satisfactory positioning of the esophagogastric tube. No acute findings. Signer Name: Riaz Garcia MD Signed: 02/07/2022 12:34 PM Workstation Name: [employer]
[2022-02-07 12:53] LABS: ABG Base Excess -0.7 mmol/L (-2.0-3.0); ABG HCO3 24.7 mmol/L (20.0-26.0); ABG Methemoglobin 0.5 % (0.0-1.5); ABG Oxygen Saturation 95.9 % (95.0-99.0); ABG PCO2 44.1 mm Hg; ABG PH 7.367 pH Units (7.350-7.450); ABG PO2 72.6 mm Hg (80.0-90.0)
--- NOTE | 2022-02-07 17:23 | Consultation ---
History of Present Illness Consult date: 02/07/22 Chief complaint: MG History of present illness: The patient comes in for weakness which is generalized and patient MG on immunosuppressive therapy, was intubated this am, per note the patient did recieve IVIG 1 st dose and was doing well, the patients last IVIG in hospital in [facility] was 3 months back. Past History Past Medical History: other (See HPI) Past Surgical History: Other (Left ear surgery) Social history: single. denies: smoking, alcohol abuse, prescription drug abuse Family history: no significant family history, other (Reviewed) Medications and Allergies Allergies Allergy/AdvReac Type Severity Reaction Status Date / Time No Known Allergies Allergy Verified 02/06/22 11:49 Home Medications Medication Instructions Recorded Confirmed Last Taken Type Mycophenolate [Cellcept] 1,000 mg PO BID 02/06/22 02/06/22 Unknown History Pyridostigmine [Mestinon] 180 mg PO DAILY 02/06/22 02/06/22 Unknown History predniSONE 10 mg PO QDAY 02/06/22 02/06/22 Unknown History Active Meds: Active Medications Acetaminophen (Acetaminophen 325 Mg Tab) 650 mg PO Q6H PRN PRN Reason: Pain MILD(1-3)/Fever >100.5/[place] Albuterol (Albuterol 2.5 Mg/3 Ml Nebu) 2.5 mg IH Q3HRT PRN PRN Reason: Shortness Of Breath Enoxaparin Sodium (Enoxaparin 40 Mg/0.4 Ml Inj) 40 mg SUB-Q QDAY@2200 NESTOR; Protocol Last Admin: 02/06/22 22:22 Dose: 40 mg Famotidine (Famotidine 20 Mg/2 Ml Inj) 20 mg IV BID NESTOR Fentanyl (Fentanyl 100 Mcg/2 Ml Inj) 50 mcg IV Q10MIN PRN PRN Reason: ANALGESIA Last Admin: 02/07/22 11:12 Dose: 50 mcg Hydrophilic Ointment (Lip Therapy Vaseline) 1 applic TP Q2HR PRN PRN Reason: Dry Lips Sodium Chloride (Nacl 0.9% 1000 Ml) 1,000 mls @ 75 mls/hr IV DIRECT NESTOR Last Admin: 02/06/22 22:23 Dose: 75 mls/hr IMMUNE GLOBUL G/GLY/IGA AVG 46 20 gm/ IMMUNE GLOBUL G/GLY/IGA AVG 46 10 gm/ IMMUNE GLOBUL G/GLY/IGA AVG 46 5 gm/Miscellaneous Information 351 mls @ 100 mls/hr IV Q24H [facility] Stop: 02/10/22 22:31 Last Infusion: 02/06/22 23:59 Dose: Infused Fentanyl Citrate (Fentanyl Drip Premix) 2,000 mcg in 100 mls @ 5.11 mls/hr IV TITR NESTOR; Protocol Last Titration: 02/07/22 11:35 Dose: 2 mcg/kg/hr, 10.219 mls/hr Morphine Sulfate (Morphine 2 Mg/1 Ml Inj) 1 mg IV Q6H PRN PRN Reason: Pain , Severe (7-10) Multi-Ingred Cream/Lotion/Oil/Oint (Mineral Oil/Petrolatum, White Ophth Oint 3.5 Gm) 1 applic OU Q4HR PRN PRN Reason: Dry Eye(s) Oxycodone/Acetaminophen (Oxycodone /Acetaminophen 5-325mg Tab) 1 tab PO Q16H PRN PRN Reason: Pain, Moderate (4-6) Scopolamine (Scopolamine Transdermal Patch 72 Hr) 1 each TD ONCE@1400 [facility] Stop: 02/07/22 18:00 Senna/Docusate Sodium (Sennosides/Docusate Sodium 8.6/50 Mg Tab) 1 tab FEEDTUBE BID [facility] Sodium Chloride (Sodium Chloride 0.9% 10 Ml Flush Syringe) 10 ml IV BID [facility] Last Admin: 02/07/22 12:16 Dose: 10 ml Sodium Chloride (Sodium Chloride 0.9% 10 Ml Flush Syringe) 10 ml IV PRN PRN PRN Reason: LINE FLUSH Physical Examination - Vital Signs Vital Signs: Vital Signs Temp Pulse BP Pulse Ox 97.7 F 99 H 172/99 100 02/06/22 11:47 02/06/22 11:47 02/06/22 11:47 02/06/22 11:47 - Physical Exam Narrative exam: 1. The patient is alert, moves all 4 extremity, is currently intubated, and is able to respond by writing . Results - Laboratory Findings CBC and BMP: 02/07/22 04:15 02/07/22 04:15 Abnormal Lab Findings: Abnormal Labs 02/06/22 02/06/22 02/06/22 12:39 12:39 13:59 RBC 5.75 H Hgb MCV 74 L MCH 23 L MCHC 30 L RDW 16.9 H Lymph % (Auto) 6.4 L [place] % (Auto) Lymph # (Auto) 0.5 L Seg Neutrophils % 89.3 H ABG pO2 ABG Hemoglobin 12.6 L Oxyhemoglobin Potassium 3.5 L Chloride 109.1 H Carbon Dioxide 20 L Creatinine 0.7 L Glucose 113 H 02/07/22 02/07/22 04:15 12:00 RBC 5.10 H Hgb 11.5 L MCV 72 L MCH 23 L MCHC RDW 17.3 H Lymph % (Auto) [place] % (Auto) 9.1 H Lymph # (Auto) Seg Neutrophils % ABG pO2 72.6 L ABG Hemoglobin 12.2 L Oxyhemoglobin 94.4 L Potassium Chloride Carbon Dioxide Creatinine Glucose Assessment and Plan 1. Myasthenia Crisis - Needs a total of 5 days of IVIG ( 0.4 g/kg body weight ) . 2. If no clinical improvement in 5 days consider Plasma Exchange . 3. Consider Extubating the patient by Saturday AM . 4. Restart All Home Immunosuppresive Medications . 5. Follow up in am. 6. I wiil try to reach out the Patient Neurologist in [place] . Dr Bonifacio Mccoy
[2022-02-07] MEDS: IGA AVG IV SCH (20:50)
[2022-02-07] MEDS: IMMUNE GLOBUL IV SCH (20:50)
[2022-02-07] MEDS: GLY IV SCH (20:50)
[2022-02-07] MEDS: [UNRECOGNIZED DRUG - OTHER] IV SCH (20:50)
[2022-02-07] MEDS: SODIUM CHLORIDE 0.9% 1000 ML 1,000 ML IV SCH (20:50)
[2022-02-07] MEDS: ENOXAPARIN 40 MG/0.4 ML INJ SUB-Q SCH (21:05)
[2022-02-07] MEDS: SENNOSIDES/DOCUSATE SODIUM 8.6/50 MG TAB FEEDTUBE SCH (21:06)
[2022-02-07] MEDS ORDERED: FAMOTIDINE 20 MG/2 ML INJ IV SCH (22:00)
[2022-02-08] MEDS: fentaNYL DRIP Premix 2,000 MCG/100 ML BAG IV SCH ×2 (00:33→08:29)
--- NOTE | 2022-02-08 05:09 | XRay Report ---
CHEST 1 VIEW INDICATION / CLINICAL INFORMATION: follow up respiratory failure. COMPARISON: Chest x-ray 02/07/2022 FINDINGS: SUPPORT DEVICES: Stable, satisfactory device positioning. HEART / MEDIASTINUM: Borderline to mild cardiomegaly appears stable. LUNGS / PLEURA: Discoid atelectasis right lung base. Lungs otherwise are clear. BONES: No significant osseous abnormality. ADDITIONAL FINDINGS: No significant additional findings. IMPRESSION: 1. Slightly more organized discoid atelectasis right lung base. Otherwise lungs are clear. Satisfacto ry positioning of tubes and lines. Signer Name: Gerardo Pena II, MD Signed: 02/08/2022 5:05 AM Workstation Name: [id number]
[2022-02-08 05:12] LABS: Mean Corpuscular HGB Conc 30 % (32-34); Mean Corpuscular Volume 74 fl (84-94); Platelet Count 225 K/mm3 (140-440); Red Blood Count 4.92 M/mm3 (3.65-5.03); Red Cell Distribution Width 17.1 % (13.2-15.2)
[2022-02-08 05:16] LABS: Hematocrit 36.2 % (35.5-45.6)
--- NOTE | 2022-02-08 05:21 | Cat Scan Report ---
CT CHEST WITH CONTRAST INDICATION / CLINICAL INFORMATION: M.Gravis/Thymoma. TECHNIQUE: Axial CT images were obtained through the chest after 100 cc Omnipaque [address] l CT scans at this location are performed using CT dose reduction for ALARA by means of automated exp osure control. COMPARISON: Chest x-ray same date FINDINGS: CHEST LOWER NECK: Soft tissues and musculature of the lower neck demonstrate no significant abnormality. Th e thyroid demonstrates no significant abnormality. THORACIC AORTA: No significant abnormality. PULMONARY ARTERY:No significant abnormality. HEART: No significant abnormality. CORONARY ARTERY CALCIFICATION: Absent -- None. MEDIASTINUM / ALEYDA: No CT evidence of thymoma. ESOPHAGUS: No significant abnormality. Esophagogastric tube is present. LYMPH NODES: No adenopathy demonstrated within the axilla, aleyda, or mediastinum. LUNGS: Endotracheal tube terminates above the cole. Subsegmental atelectasis right middle lobe and bilateral lower lobes. Superimposed infectious process not excluded. PLEURA: No pleural effusion. No pneumothorax. THORACIC SOFT TISSUES: Moderate bilateral gynecomastia. OSSEOUS STRUCTURES: No significant abnormality of included osseous structures. UPPER ABDOMEN: 2 hypoattenuating lesions of the liver in the right hepatic lobe demonstrated. The lar ayla measures up to 2 cm. One of these demonstrates peripheral puddling of contrast compatible with he patic hemangioma. The second demonstrates no distinct or specific pattern of enhancement. Upper pole cyst of the left kidney. ADDITIONAL CHEST FINDINGS: None. IMPRESSION: 1. No CT evidence of thymoma. 2. Hypoattenuating lesions of the liver statistically reflect hepatic hemangiomas. One of these lesio ns demonstrate characteristic peripheral puddling of contrast, the second does not clearly demonstrat e specific pattern of enhancement. Ultrasound targeting these lesions may be useful for further felix cterization and confirmation of hemangioma. 3. Moderate subsegmental atelectasis of the bilateral lungs. 4. Satisfactory positioning of endotracheal tube and esophagogastric tube. Signer Name: Gerardo Pena II, MD Signed: 02/08/2022 5:16 AM Workstation Name: [id number]
[2022-02-08 05:31] LABS: BUN/Creatinine Ratio 20; Blood Urea Nitrogen 12 mg/dL (9-20); Calcium 8.6 mg/dL (8.4-10.2); Hemolysis Index 19
[2022-02-08] MEDS: predniSONE 10 MG TAB PO SCH (09:43)
[2022-02-08] MEDS: SENNOSIDES/DOCUSATE SODIUM 8.6/50 MG TAB FEEDTUBE SCH ×2 (09:43→21:11)
[2022-02-08] MEDS: FAMOTIDINE 20 MG TAB FEEDTUBE SCH ×2 (09:43→21:11)
[2022-02-08] MEDS: PYRIDOSTIGMINE BROMIDE 60 MG TAB PO SCH (09:43)
[2022-02-08 09:46] LABS: ABG Base Excess -1.1 mmol/L (-2.0-3.0); ABG Methemoglobin 0.5 % (0.0-1.5); ABG Oxygen Saturation 97.9 % (95.0-99.0); ABG PCO2 48.2 mm Hg; ABG PH 7.333 pH Units (7.350-7.450); ABG PO2 114.7 mm Hg (80.0-90.0)
--- NOTE | 2022-02-08 10:28 | Progress Note ---
Assessment and Plan Myasthenic crisis, now on MVS Obesity Possible ANTON / OHS Blurry vision Mild hypokalemia Mild metabolic acidosis -continue IVIG to complete course -If no improvement, will need plasmapharesis per Neurology - avoid aminoglycosides, flouroquinolones -keep potassium at 4, Mag at 2 and Phos at >2.5 - neurology consultation- notes reviewed -Daily SAT and SBT assessment as tolerated - continue to titrate supplemental oxygen to keep SpO2 90-92% - VAP bundle addressed, aspiration precautions HOB >40 - continue lung protective strategies - continue bronchodilators with pulmonary hygiene per RT - continue accuchecks with glycemic control per SSI (While critically ill target blood glucose of 140-180 mg/dL; avoid hypoglycemia) - avoid nephrotoxins, renally dose all medications - continue to avoid benzodiazepines, reduce the possibility of delirium - prn analgesia per CPOT score - Maintenance of sleep-wake cycle, avoid delirium - continue enteral nutritional support at goal rate as tolerated - VTE prophylaxis- Heparin -Stress ulcer prophylaxis- Famotidine - mobility, off loading and frequent turning per facility protocol to prevent pressure ulcers - Monitor hemodynamics closely - continue other care per attending / other consultants CONDITION: CRITICAL PROGNOSIS: GUARDED CODE STATUS: FULL CODE The high probability of a clinically significant, sudden or life-threatening deterioration of the [respiratory, neurologic] system(s) required my full and direct attention, intervention and personal management. The aggregate critical care time was [35] minutes without overlap. Time includes spent on; [x] Data Review and interpretation [x] Patient assessment and monitoring of vital signs [x] Documentation [x] Medication orders and management Subjective Date of service: 02/08/22 Principal diagnosis: Myasthenic crisis; Obesity; Possible ANTON/OHS; Blurry vision; Hypokalemia Interval history: Patient is seen today for: Myasthenic crisis; Obesity; Possible ANTON / OHS; Blurry vision; Mild hypokalemia; Mild metabolic acidosis Seen and examined at bedside; 24hour events reviewed; nursing and respiratory care staff consulted; no adverse overnight events reported to me; resting in bed;s/p emergent intubation yesterday; denies N/V/F/C; awake and alert- communicates with non verbal cues and writes on a pad. Objective Vital Signs - 12hr 02/07/22 02/07/22 02/07/22 23:00 23:32 23:37 Temperature Pulse Rate 57 L 59 L Pulse Rate [ From Monitor] Respiratory 14 14 20 Rate Blood Pressure 126/81 120/77 O2 Sat by Pulse 100 100 100 Oximetry 02/07/22 02/08/22 02/08/22 23:59 00:00 00:10 Temperature 98.1 F Pulse Rate 59 L 59 L Pulse Rate [ From Monitor] Respiratory 16 Rate Blood Pressure 128/80 128/80 O2 Sat by Pulse 100 100 Oximetry 02/08/22 02/08/22 02/08/22 01:00 02:00 03:00 Temperature Pulse Rate 59 L 63 64 Pulse Rate [ From Monitor] Respiratory 14 16 14 Rate Blood Pressure 122/76 130/79 117/77 O2 Sat by Pulse 100 99 100 Oximetry 02/08/22 02/08/22 02/08/22 03:12 03:19 04:00 Temperature Pulse Rate 58 L 70 Pulse Rate [ From Monitor] Respiratory 14 14 Rate Blood Pressure 124/69 O2 Sat by Pulse 100 98 Oximetry 02/08/22 02/08/22 02/08/22 04:13 05:01 06:00 Temperature Pulse Rate 87 102 H 66 Pulse Rate [ From Monitor] Respiratory 16 14 Rate Blood Pressure 124/69 159/101 159/101 O2 Sat by Pulse 97 100 100 Oximetry 02/08/22 02/08/22 02/08/22 07:00 08:00 09:00 Temperature 98.9 F Pulse Rate 63 62 57 L Pulse Rate [ 62 From Monitor] Respiratory 14 15 14 Rate Blood Pressure 120/62 128/67 113/60 O2 Sat by Pulse 100 100 100 Oximetry Constitutional: no acute distress, alert, other (young obese male orally intuabted, ETT at 24 cm at the lip) Eyes: non-icteric ENT: oropharynx moist Neck: supple, no lymphadenopathy, no JVD, other (large circumference) Effort: mildly labored Ascultation: Bilateral: clear, diminished breath sounds Percussion: Bilateral: not dull Cardiovascular: regular rate and rhythm, other (S1,S2) Gastrointestinal: normoactive bowel sounds, soft, non-tender, non-distended (protuberant) Integumentary: normal Extremities: no cyanosis, no edema, pulses normal, no ischemia or petechiae Neurologic: non-focal exam (grossly; generalized weakness), pupils equal and round, CN II-XII normal, other (power 3/5 bilaterally upper limbs, 4/5 lower limbs) Psychiatric: mood appropriate, affect normal CBC and BMP: 02/10/22 04:50 02/10/22 04:50 ABG, PT/INR, D-dimer: ABG ABG pH 7.333 pH Units (7.350-7.450) L 02/08/22 09:20 ABG pCO2 48.2 mm Hg 02/08/22 09:20 ABG pO2 114.7 mm Hg (80.0-90.0) H 02/08/22 09:20 ABG O2 Saturation 97.9 % (95.0-99.0) 02/08/22 09:20 Abnormal lab findings: Abnormal Labs 02/06/22 02/06/22 02/06/22 12:39 12:39 13:59 RBC 5.75 H Hgb MCV 74 L MCH 23 L MCHC 30 L RDW 16.9 H Lymph % (Auto) 6.4 L [place] % (Auto) Lymph # (Auto) 0.5 L Seg Neutrophils % 89.3 H ABG pH ABG pO2 ABG Hemoglobin 12.6 L Oxyhemoglobin Potassium 3.5 L Chloride 109.1 H Carbon Dioxide 20 L Creatinine 0.7 L Glucose 113 H 02/07/22 02/07/22 02/08/22 04:15 12:00 04:23 RBC 5.10 H Hgb 11.5 L 11.0 L MCV 72 L 74 L MCH 23 L 22 L MCHC 30 L RDW 17.3 H 17.1 H Lymph % (Auto) [place] % (Auto) 9.1 H Lymph # (Auto) Seg Neutrophils % ABG pH ABG pO2 72.6 L ABG Hemoglobin 12.2 L Oxyhemoglobin 94.4 L Potassium Chloride Carbon Dioxide Creatinine Glucose 02/08/22 02/08/22 04:23 09:20 RBC Hgb MCV MCH MCHC RDW Lymph % (Auto) [place] % (Auto) Lymph # (Auto) Seg Neutrophils % ABG pH 7.333 L ABG pO2 114.7 H ABG Hemoglobin 11.1 L Oxyhemoglobin Potassium Chloride 109.3 H Carbon Dioxide Creatinine 0.6 L Glucose Chest x-ray: image reviewed Allied health notes reviewed: RT
--- NOTE | 2022-02-08 10:54 | Progress Note ---
<MARNI RICHEY - Last Filed: 02/08/22 19:26> Assessment and Plan Assessment and plan: This is a 36-year-old male with known past medical history of obesity and myasthenia gravis admitted for myasthenia gravis crisis. Hospital Course to Date: 02/07: S/p X1 dose of IV IG overnight, patient reported feeling much better and stronger this am, moving all extremities. Plan to wean off Bipap this am. Okay to start a diet if patient pass bedside swallow. D/W CCM plan for CT chest w con tomorrow to r/o thymoma. Neurology consulted. 02/08: S/p emergent intubattion by anethesia yesterday. Now intubated and sedated, RASS -2. Neurology recommendations noted. Resumed home meds. Will wean off sedation this am for possible SAT/SBT. CT chest also noted with no evidence of thymoma. Continue IVIG. Attending received call back from [facility]. Transfer was declined, no available ICU beds at this time. They recommend continuing IVIG and possible plasma exchange. Awaiting on Neurology final recommendations. 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 He was passing through [place] when symptoms started - S/p emergent intubation by anethesia - CT chest w con showed no evidence of thymoma - Neurology consulted, appreciated recommendations - Resumed home meds: Cellcept, Mycophenolate, and Prednisone - Continue IV IG X5days - Will consider plasma exchange if no improvement by hospital day 5 - CCM also on consult, appreciated recommendations - Patient reported that his neurologist in [place] is Dr. Billie Delgado - Transfer to [facility] was declined, no available ICU beds at this time. They recommend continuing IVIG and possible plasma exchange #Acute Hypoxemic Respiratory Failure #Probable ANTON- On CPAP at home #Former Smoker - most likely related to MG crisis - S/p emergent intubation by anesthesia on 02/07 for airway protection - Vent setting: PRVC-35%,6,14,450 - Recent ABG noted - CCM consulted, appreciate recommendations - Continue IV IG - VAP bundle addressed - Aspiration precaution HOB above 30 - Daily SBT and SAT trials as tolerated - Daily ABG and CXR - Continue SPO2 monitoring for SPO2 goal above 92% #Hepatic Hemangiomas - noted fro CT chest w/o con - Stable, LFTs within normal range - Outpatient follow up for US and further workups #Obesity - Balanced diet, increase physical activity discharge, outpatient pulmonary follow-up for sleep study, weight reduction. #GI/DVT Prophylaxis - PPI- Pepcid - Lovenox SubQ - SCD to bilateral lower extremities while in bed #Advance Care Planning - Disease education data, care plan, diagnoses, and prognosis were discussed with patient at the bedside. Patient is a Full code. Patient acknowledged understanding and agreement with current care plan. - Patient reported in case of an emergency and he is unable to make his own decision, his NOK is his aunt who resides in [place], [place]. Heike Araujo, phone# The high probability of a clinically significant, sudden or life threatening deterioration of the [multiple] system(s) required my full and direct attention, intervention and personal management. The aggregate critical care time was [60] minutes. This time is in addition to time spent performing reported procedures but includes the following: [x] Data Review and interpretation [x] Patient assessment and monitoring of vital signs [x] Documentation [x] Medication orders and management Disposition Plan: ICU Total Time Spent with Patient (Minutes): 60 History Interval history: Patient seen and examined at the bedside. S/p emergent intubation by anesthesia yesterday. Patient is stable on the vent, on low dose sedation, RASS-2. VSS. ADAL overnight Hospitalist Physical - Constitutional Vitals: Temp Pulse Resp BP Pulse Ox 98.9 F 57 L 14 113/60 100 02/08/22 08:00 02/08/22 09:00 02/08/22 09:00 02/08/22 09:00 02/08/22 09:00 General appearance: Present: no acute distress, obese, other (Intubated and kathleen keshia) - EENT Eyes: Present: PERRL - Neck Neck: Present: normal ROM - Respiratory Respiratory effort: normal Respiratory: bilateral: diminished - Cardiovascular Rhythm: regular Heart Sounds: Present: S1 & S2 - Extremities Extremities: no ischemia, pulses intact, pulses symmetrical Extremity abnormal: edema - Peripheral Assessment Generalized Edema Type: Non-pitting Edema Degree: 1+ Capillary Refill: < 3 seconds Skin Temperature: Warm Peripheral Pulses: within normal limits - Abdominal General gastrointestinal: soft, non-distended, normal bowel sounds - Integumentary Integumentary: Present: clear, warm, dry - Psychiatric Psychiatric: other (Intubated and sedated, RASS -2) - Neurologic Neurologic: other (Intubated and sedated, RASS -2) - Allied Health Allied health notes reviewed: nursing, case management Results - Labs CBC & Chem 7: 02/08/22 04:23 02/08/22 04:23 Labs: Laboratory Last Values WBC 7.2 K/mm3 (4.5-11.0) 02/08/22 04:23 RBC 4.92 M/mm3 (3.65-5.03) 02/08/22 04:23 Hgb 11.0 gm/dl (11.8-15.2) L 02/08/22 04:23 Hct 36.2 % (35.5-45.6) 02/08/22 04:23 MCV 74 fl (84-94) L 02/08/22 04:23 MCH 22 pg (28-32) L 02/08/22 04:23 MCHC 30 % (32-34) L 02/08/22 04:23 RDW 17.1 % (13.2-15.2) H 02/08/22 04:23 Plt Count 225 K/mm3 (140-440) 02/08/22 04:23 Lymph % (Auto) 29.4 % (13.4-35.0) 02/07/22 04:15 [place] % (Auto) 9.1 % (0.0-7.3) H 02/07/22 04:15 Eos % (Auto) 0.4 % (0.0-4.3) 02/07/22 04:15 Baso % (Auto) 0.7 % (0.0-1.8) 02/07/22 04:15 Lymph # (Auto) 1.7 K/mm3 (1.2-5.4) 02/07/22 04:15 [place] # (Auto) 0.5 K/mm3 (0.0-0.8) 02/07/22 04:15 Eos # (Auto) 0.0 K/mm3 (0.0-0.4) 02/07/22 04:15 Baso # (Auto) 0.0 K/mm3 (0.0-0.1) 02/07/22 04:15 Seg Neutrophils % 60.4 % (40.0-70.0) 02/07/22 04:15 Seg Neutrophils # 3.6 K/mm3 (1.8-7.7) 02/07/22 04:15 ABG pH 7.333 pH Units (7.350-7.450) L 02/08/22 09:20 ABG pCO2 48.2 mm Hg 02/08/22 09:20 ABG pO2 114.7 mm Hg (80.0-90.0) H 02/08/22 09:20 ABG HCO3 25.0 mmol/L (20.0-26.0) 02/08/22 09:20 ABG O2 Saturation 97.9 % (95.0-99.0) 02/08/22 09:20 ABG O2 Content 15.1 (0.0-44) 02/08/22 09:20 ABG Base Excess -1.1 mmol/L (-2.0-3.0) 02/08/22 09:20 ABG Hemoglobin 11.1 gm/dl (14.0-18.0) L 02/08/22 09:20 ABG Carboxyhemoglobin 1.4 % (0.0-5.0) 02/08/22 09:20 ABG Methemoglobin 0.5 % (0.0-1.5) 02/08/22 09:20 Oxyhemoglobin 96.1 % (95.0-99.0) 02/08/22 09:20 FiO2 35 % 02/08/22 09:20 Sodium 142 mmol/L (137-145) 02/08/22 04:23 Potassium 3.9 mmol/L (3.6-5.0) 02/08/22 04:23 Chloride 109.3 mmol/L (98-107) H 02/08/22 04:23 Carbon Dioxide 23 mmol/L (22-30) 02/08/22 04:23 Anion Gap 14 mmol/L 02/08/22 04:23 BUN 12 mg/dL (9-20) 02/08/22 04:23 Creatinine 0.6 mg/dL (0.8-1.3) L 02/08/22 04:23 Estimated GFR > 60 ml/min 02/08/22 04:23 BUN/Creatinine Ratio 20 % 02/08/22 04:23 Glucose 94 mg/dL (75-100) 02/08/22 04:23 Calcium 8.6 mg/dL (8.4-10.2) 02/08/22 04:23 Total Bilirubin 0.40 mg/dL (0.1-1.2) 02/07/22 04:15 AST 9 units/L (5-40) 02/07/22 04:15 ALT 11 units/L (7-56) 02/07/22 04:15 Alkaline Phosphatase 75 units/L (35-129) 02/07/22 04:15 Total Protein 7.0 g/dL (6.3-8.2) 02/07/22 04:15 Albumin 4.0 g/dL (3.9-5) 02/07/22 04:15 Albumin/Globulin Ratio 1.3 % 02/07/22 04:15 Microbiology: Microbiology 02/07/22 12:30 Tracheal Aspirate Sputum Culture - Preliminary [place]/IV: Voiding Method Urinal Active Medications - Current Medications Current Medications: Generic Name Dose Route Start Last Admin Trade Name Freq PRN Reason Stop Dose Admin Acetaminophen 650 mg 02/06/22 15:00 Acetaminophen 325 Mg Tab PO Q6H PRN Pain MILD(1-3)/Fever >100.5/[place]G Albuterol 2.5 mg 02/06/22 15:00 Albuterol 2.5 Mg/3 Ml Nebu IH Q3HRT PRN Shortness Of Breath Enoxaparin Sodium 40 mg 02/06/22 22:00 02/07/22 21:05 Enoxaparin 40 Mg/0.4 Ml Inj SUB-Q 40 mg QDAY@2200 NESTOR Administration Protocol Famotidine 20 mg 02/08/22 10:00 02/08/22 09:43 Famotidine 20 Mg Tab FEEDTUBE 20 mg BID NESTOR Administration Fentanyl 50 mcg 02/07/22 10:55 02/07/22 11:12 Fentanyl 100 Mcg/2 Ml Inj IV 50 mcg Q10MIN PRN Administration ANALGESIA Hydrophilic Ointment 1 applic 02/07/22 10:55 Lip Therapy Vaseline TP Q2HR PRN Dry Lips Sodium Chloride 1,000 mls @ 75 mls/hr 02/06/22 14:00 02/07/22 20:50 Nacl 0.9% 1000 Ml IV 75 mls/hr DIRECT NESTOR Administration IMMUNE GLOBUL G/GLY/IGA AVG 46 351 mls @ 100 mls/hr 02/06/22 19:00 02/07/22 23:37 20 gm/ IMMUNE GLOBUL G/GLY/ IV 02/10/22 22:31 Infused IGA AVG 46 10 gm/ IMMUNE Q24H NESTOR Infusion GLOBUL G/GLY/IGA AVG 46 5 gm/ Miscellaneous Information Fentanyl Citrate 2,000 mcg in 100 mls @ 5.11 mls/hr 02/07/22 11:00 02/08/22 09:44 Fentanyl Drip Premix IV 0 mcg/kg/hr TITR NESTOR 0 mls/hr Titration Protocol 1 MCG/KG/HR Morphine Sulfate 1 mg 02/06/22 15:00 Morphine 2 Mg/1 Ml Inj IV Q6H PRN Pain , Severe (7-10) Multi-Ingred Cream/Lotion/Oil/Oint 1 applic 02/07/22 10:55 Mineral Oil/Petrolatum, White Ophth Oint 3.5 Gm OU Q4HR PRN Dry Eye(s) Mycophenolate Mofetil 1,000 mg 02/09/22 10:00 Mycophenolate 1000 Mg/5 Ml Oral Liqd FEEDTUBE BID NESTOR Oxycodone/Acetaminophen 1 tab 02/06/22 15:00 Oxycodone /Acetaminophen 5-325mg Tab PO Q16H PRN Pain, Moderate (4-6) Prednisone 10 mg 02/08/22 10:00 02/08/22 09:43 Prednisone 10 Mg Tab PO 10 mg QDAY NESTOR Administration Pyridostigmine [place] 180 mg 02/08/22 10:00 02/08/22 09:43 Pyridostigmine [place] 60 Mg Tab PO 180 mg DAILY NESTOR Administration Senna/Docusate Sodium 1 tab 02/07/22 22:00 02/08/22 09:43 Sennosides/Docusate Sodium 8.6/50 Mg Tab FEEDTUBE 1 tab BID NESTOR Administration Sodium Chloride 10 ml 02/06/22 22:00 02/08/22 09:43 Sodium Chloride 0.9% 10 Ml Flush Syringe IV 10 ml BID NESTOR Administration Sodium Chloride 10 ml 02/06/22 13:59 Sodium Chloride 0.9% 10 Ml Flush Syringe IV PRN PRN LINE FLUSH Nutrition/Malnutrition Assess - Dietary Evaluation Nutrition/Malnutrition Findings: Nutrition Notes Start: 02/07/22 13:09 Freq: Status: Active Protocol: Document 02/07/22 13:09 PRADEEP (Rec: 02/07/22 13:44 PRADEEP [id number]) Nutrition Notes Need for Assessment generated from: MD Order Initial or Follow up Assessment Other Pertinent Diagnosis Myasthenia Gravis. Current Diet NPO (since 02/06 13:59), TF- Jevity 1.2 Zana @ 70 ml/hr ( from D 02/07). Labs/Tests 02/07: WNL. Pertinent Medications 02/07: nutritionally unremarkable. Height 5 ft 10 in Weight 102.194 kg [place] Body Weight (kg) 75.45 BMI 32.3 Intake Prior to Admission Good Weight change and time frame Pt denies having loss body weight [employer]. Weight Status Obese Subjective/Other Information RD consult for difficulty chewing assessment and write/ manage TF. Pt currently on NPO. Pt is on Mechanical ventilation, O2 saturation @ 100%, according to Mechanical Ventilation History Assessment notes. Pt was intubated at 11:00 on 02/07, according to Event notes. Pt awaiting for tranfer to [place], according to Event notes. Percent of energy/protein needs met: Pt currently on NPO. Prescribed TF-Jevity 1.2 Zana @ 70 ml/hr provides for energy/ protein needs (2,010 Kcal/93 g ) during LOS, 98% Kcal; 104% AA. Burn Absent Trauma Absent GI Symptoms None Food Allergy No Skin Integrity/Comment Assessment WNL. Current % PO Other Minimum of two criteria No Fluid Accumulation N/A Reduced Development Director Strength N/A (non-severe) Protein-Calorie Malnutrition N\A #1 Nutrition Diagnosis Inadequate oral intake Etiology Pt is on Mechanical Ventilation. As Evidenced by Signs and Symptoms Pt currently on NPO. Is patient on ventilator? Yes Is Patient Ambulatory and/or Out of Bed No REE-([facility]-confined to bed) 2352.060 Kcal/Kg value to use for calculation 20 Approximate Energy Requirements Using 2044 kcal/Kg Calculation Used for Recommendations Kcal/kg Additional Notes Protein: 0.8-1 g/Kg AdjBW; 71- 89 g/day. Fluids: 1 ml/Kcal, or as per MD. Nutrition Intervention Nutrition Support: Start TF-Jevity 1.2 Zana @ 70 ml/hr. Flush: 120 ml water Q 4 hr, or as per MD. Kcal 2,010 Protein (gm) 93 Carbohydrates (gm) 284 Fat (gm) 66 Fluid (mL) 1,352 Fiber (gm) 30 % RDI: 98% Kcal; 104% AA. Goal #1 Provide at least 75% of energy /protein needs through Enteral Feeding during LOS. Follow-Up By: 02/09/22 Additional Comments Start monitoring TF tolerance and BM. <LELO ODONNELL - Last Filed: 02/09/22 09:58> Assessment and Plan Assessment and plan: I saw and evaluated the patient. I agree with the findings and the plan of care as documented in the Nurse Practitioner's~note, with the following corrections and additions. Hospitalist Physical - Constitutional Vitals: Temp Pulse Resp BP Pulse Ox 97.9 F 73 12 122/64 94 02/09/22 08:00 02/09/22 09:40 02/09/22 09:40 02/09/22 09:40 02/09/22 09:40 Results - Labs CBC & Chem 7: 02/09/22 04:50 02/09/22 04:50 Labs: Laboratory Last Values WBC 6.2 K/mm3 (4.5-11.0) 02/09/22 04:50 RBC 4.65 M/mm3 (3.65-5.03) 02/09/22 04:50 Hgb 10.4 gm/dl (11.8-15.2) L 02/09/22 04:50 Hct 33.7 % (35.5-45.6) L 02/09/22 04:50 MCV 73 fl (84-94) L 02/09/22 04:50 MCH 22 pg (28-32) L 02/09/22 04:50 MCHC 31 % (32-34) L 02/09/22 04:50 RDW 17.5 % (13.2-15.2) H 02/09/22 04:50 Plt Count 203 K/mm3 (140-440) 02/09/22 04:50 Lymph % (Auto) 29.4 % (13.4-35.0) 02/07/22 04:15 [place] % (Auto) 9.1 % (0.0-7.3) H 02/07/22 04:15 Eos % (Auto) 0.4 % (0.0-4.3) 02/07/22 04:15 Baso % (Auto) 0.7 % (0.0-1.8) 02/07/22 04:15 Lymph # (Auto) 1.7 K/mm3 (1.2-5.4) 02/07/22 04:15 [place] # (Auto) 0.5 K/mm3 (0.0-0.8) 02/07/22 04:15 Eos # (Auto) 0.0 K/mm3 (0.0-0.4) 02/07/22 04:15 Baso # (Auto) 0.0 K/mm3 (0.0-0.1) 02/07/22 04:15 Seg Neutrophils % 60.4 % (40.0-70.0) 02/07/22 04:15 Seg Neutrophils # 3.6 K/mm3 (1.8-7.7) 02/07/22 04:15 ABG pH 7.333 pH Units (7.350-7.450) L 02/08/22 09:20 ABG pCO2 48.2 mm Hg 02/08/22 09:20 ABG pO2 114.7 mm Hg (80.0-90.0) H 02/08/22 09:20 ABG HCO3 25.0 mmol/L (20.0-26.0) 02/08/22 09:20 ABG O2 Saturation 97.9 % (95.0-99.0) 02/08/22 09:20 ABG O2 Content 15.1 (0.0-44) 02/08/22 09:20 ABG Base Excess -1.1 mmol/L (-2.0-3.0) 02/08/22 09:20 ABG Hemoglobin 11.1 gm/dl (14.0-18.0) L 02/08/22 09:20 ABG Carboxyhemoglobin 1.4 % (0.0-5.0) 02/08/22 09:20 ABG Methemoglobin 0.5 % (0.0-1.5) 02/08/22 09:20 Oxyhemoglobin 96.1 % (95.0-99.0) 02/08/22 09:20 FiO2 35 % 02/08/22 09:20 Sodium 139 mmol/L (137-145) 02/09/22 04:50 Potassium 3.6 mmol/L (3.6-5.0) 02/09/22 04:50 Chloride 104.4 mmol/L (98-107) 02/09/22 04:50 Carbon Dioxide 26 mmol/L (22-30) 02/09/22 04:50 Anion Gap 12 mmol/L 02/09/22 04:50 BUN 12 mg/dL (9-20) 02/09/22 04:50 Creatinine 0.8 mg/dL (0.8-1.3) 02/09/22 04:50 Estimated GFR > 60 ml/min 02/09/22 04:50 BUN/Creatinine Ratio 15 % 02/09/22 04:50 Glucose 107 mg/dL (75-100) H 02/09/22 04:50 Calcium 8.7 mg/dL (8.4-10.2) 02/09/22 04:50 Total Bilirubin 0.40 mg/dL (0.1-1.2) 02/07/22 04:15 AST 9 units/L (5-40) 02/07/22 04:15 ALT 11 units/L (7-56) 02/07/22 04:15 Alkaline Phosphatase 75 units/L (35-129) 02/07/22 04:15 Total Protein 7.0 g/dL (6.3-8.2) 02/07/22 04:15 Albumin 4.0 g/dL (3.9-5) 02/07/22 04:15 Albumin/Globulin Ratio 1.3 % 02/07/22 04:15 Microbiology: Microbiology 02/07/22 12:30 Tracheal Aspirate Sputum Culture - Preliminary [place]/IV: Voiding Method Urinal Active Medications - Current Medications Current Medications: Generic Name Dose Route Start Last Admin Trade Name Freq PRN Reason Stop Dose Admin Acetaminophen 650 mg 02/06/22 15:00 Acetaminophen 325 Mg Tab PO Q6H PRN Pain MILD(1-3)/Fever >100.5/[place] Albuterol 2.5 mg 02/06/22 15:00 Albuterol 2.5 Mg/3 Ml Nebu IH Q3HRT PRN Shortness Of Breath Enoxaparin Sodium 40 mg 02/06/22 22:00 02/08/22 21:10 Enoxaparin 40 Mg/0.4 Ml Inj SUB-Q 40 mg QDAY@2200 [facility] Administration Protocol Famotidine 20 mg 02/08/22 10:00 02/09/22 09:03 Famotidine 20 Mg Tab FEEDTUBE 20 mg BID NESTOR Administration Fentanyl 50 mcg 02/07/22 10:55 02/07/22 11:12 Fentanyl 100 Mcg/2 Ml Inj IV 50 mcg Q10MIN PRN Administration ANALGESIA Furosemide 40 mg 02/09/22 09:45 Furosemide 40 Mg/4 Ml Inj IV 02/09/22 13:45 ONCE@0945 [facility] Hydrophilic Ointment 1 applic 02/07/22 10:55 Lip Therapy Vaseline TP Q2HR PRN Dry Lips IMMUNE GLOBUL G/GLY/IGA AVG 46 351 mls @ 100 mls/hr 02/06/22 19:00 02/08/22 22:10 20 gm/ IMMUNE GLOBUL G/GLY/ IV 02/10/22 22:31 Infused IGA AVG 46 10 gm/ IMMUNE Q24H NESTOR Infusion GLOBUL G/GLY/IGA AVG 46 5 gm/ Miscellaneous Information Fentanyl Citrate 2,000 mcg in 100 mls @ 5.11 mls/hr 02/07/22 11:00 02/08/22 19:03 Fentanyl Drip Premix IV 0 mcg/kg/hr TITR NESTOR 0 mls/hr Titration Protocol 1 MCG/KG/HR Potassium Phosphate 15 mmol/ 255 mls @ 63 mls/hr 02/09/22 10:00 Sodium Chloride IV 02/09/22 14:00 ONCE@1000 [facility] Ketorolac Tromethamine 30 mg 02/09/22 09:00 02/09/22 09:02 Ketorolac 30 Mg/1 Ml Inj IV 02/09/22 12:00 30 mg ONCE@0900 [facility] Administration Morphine Sulfate 1 mg 02/06/22 15:00 Morphine 2 Mg/1 Ml Inj IV Q6H PRN Pain , Severe (7-10) Multi-Ingred Cream/Lotion/Oil/Oint 1 applic 02/07/22 10:55 Mineral Oil/Petrolatum, White Ophth Oint 3.5 Gm OU Q4HR PRN Dry Eye(s) Mycophenolate Mofetil 1,000 mg 02/09/22 10:00 Mycophenolate 1000 Mg/5 Ml Oral Liqd FEEDTUBE BID NESTOR Ondansetron HCl 4 mg 02/08/22 17:00 02/09/22 07:14 Ondansetron 4 Mg/2 Ml Inj IV 4 mg Q8H PRN Administration Nausea And Vomiting Oxycodone/Acetaminophen 1 tab 02/06/22 15:00 Oxycodone /Acetaminophen 5-325mg Tab PO Q16H PRN Pain, Moderate (4-6) Prednisone 10 mg 02/08/22 10:00 02/08/22 09:43 Prednisone 10 Mg Tab PO 10 mg QDAY NESTOR Administration Pyridostigmine [place] 180 mg 02/08/22 10:00 02/09/22 09:03 Pyridostigmine [place] 60 Mg Tab PO 180 mg DAILY NESTOR Administration Senna/Docusate Sodium 1 tab 02/07/22 22:00 02/09/22 09:03 Sennosides/Docusate Sodium 8.6/50 Mg Tab FEEDTUBE 1 tab BID NESTOR Administration Sodium Chloride 10 ml 02/06/22 22:00 02/09/22 09:03 Sodium Chloride 0.9% 10 Ml Flush Syringe IV 10 ml BID NESTOR Administration Sodium Chloride 10 ml 02/06/22 13:59 Sodium Chloride 0.9% 10 Ml Flush Syringe IV PRN PRN LINE FLUSH Nutrition/Malnutrition Assess - Dietary Evaluation Nutrition/Malnutrition Findings: Nutrition Notes Start: 02/07/22 13:09 Freq: Status: Active Protocol: Document 02/07/22 13:09 PRADEEP (Rec: 02/07/22 13:44 PRADEEP [id number]) Nutrition Notes Need for Assessment generated from: MD Order Initial or Follow up Assessment Other Pertinent Diagnosis Myasthenia Gravis. Current Diet NPO (since 02/06 13:59), TF- Jevity 1.2 Zana @ 70 ml/hr ( from D 02/07). Labs/Tests 02/07: WNL. Pertinent Medications 02/07: nutritionally unremarkable. Height 5 ft 10 in Weight 102.194 kg [place] Body Weight (kg) 75.45 BMI 32.3 Intake Prior to Admission Good Weight change and time frame Pt denies having loss body weight [employer]. Weight Status Obese Subjective/Other Information RD consult for difficulty chewing assessment and write/ manage TF. Pt currently on NPO. Pt is on Mechanical ventilation, O2 saturation @ 100%, according to Mechanical Ventilation History Assessment notes. Pt was intubated at 11:00 on 02/07, according to Event notes. Pt awaiting for tranfer to [place], according to Event notes. Percent of energy/protein needs met: Pt currently on NPO. Prescribed TF-Jevity 1.2 Zana @ 70 ml/hr provides for energy/ protein needs (2,010 Kcal/93 g ) during LOS, 98% Kcal; 104% AA. Burn Absent Trauma Absent GI Symptoms None Food Allergy No Skin Integrity/Comment Assessment WNL. Current % PO Other Minimum of two criteria No Fluid Accumulation N/A Reduced Development Director Strength N/A (non-severe) Protein-Calorie Malnutrition N\A #1 Nutrition Diagnosis Inadequate oral intake Etiology Pt is on Mechanical Ventilation. As Evidenced by Signs and Symptoms Pt currently on NPO. Is patient on ventilator? Yes Is Patient Ambulatory and/or Out of Bed No REE-([place]-confined to bed) 2352.060 Kcal/Kg value to use for calculation 20 Approximate Energy Requirements Using 2044 kcal/Kg Calculation Used for Recommendations Kcal/kg Additional Notes Protein: 0.8-1 g/Kg AdjBW; 71- 89 g/day. Fluids: 1 ml/Kcal, or as per MD. Nutrition Intervention Nutrition Support: Start TF-Jevity 1.2 Zana @ 70 ml/hr. Flush: 120 ml water Q 4 hr, or as per MD. Kcal 2,010 Protein (gm) 93 Carbohydrates (gm) 284 Fat (gm) 66 Fluid (mL) 1,352 Fiber (gm) 30 % RDI: 98% Kcal; 104% AA. Goal #1 Provide at least 75% of energy /protein needs through Enteral Feeding during LOS. Follow-Up By: 02/09/22 Additional Comments Start monitoring TF tolerance and BM.
--- NOTE | 2022-02-08 16:26 | XRay Report ---
XR abdomen 1V ap INDICATION: Confirmation of Feeding Tube. COMPARISON: None available. FINDINGS: The tip of the esophagogastric tube projects over the body of the stomach. Signer Name: Dirk Tapia MD Signed: 02/08/2022 4:22 PM Workstation Name: [id number]
[2022-02-08] MEDS: ONDANSETRON 4 MG/2 ML INJ IV PRN (17:30)
[2022-02-08] MEDS: IMMUNE GLOBUL IV SCH (19:09)
[2022-02-08] MEDS: IGA AVG IV SCH (19:09)
[2022-02-08] MEDS: GLY IV SCH (19:09)
[2022-02-08] MEDS: [UNRECOGNIZED DRUG - OTHER] IV SCH (19:09)
[2022-02-08] MEDS: ENOXAPARIN 40 MG/0.4 ML INJ SUB-Q SCH (21:10)
--- NOTE | 2022-02-09 03:29 | XRay Report ---
CHEST 1 VIEW INDICATION / CLINICAL INFORMATION: follow up respiratory failure. COMPARISON: Chest x-ray 02/08/2022 FINDINGS: SUPPORT DEVICES: Endotracheal tube terminates 3 cm above the cole in satisfactory position. Esophag ogastric tube terminates within the mid fundus. A portion of the tube is looped beneath the left nae diaphragm. HEART / MEDIASTINUM: Stable mild cardiomegaly. LUNGS / PLEURA: Interval increase in perihilar markings likely reflective of crowding. Right lung franki ar for technique otherwise. Left lung demonstrates opacities thought to reflect atelectasis increased since comparison. BONES: No significant osseous abnormality. ADDITIONAL FINDINGS: No significant additional findings. IMPRESSION: 1. Stable tubes and lines. 2. Worsening atelectasis of the left lung base. The right lung is grossly clear. Signer Name: Gerardo Pena II, MD Signed: 02/09/2022 3:24 AM Workstation Name: [id number]
[2022-02-09 05:44] LABS: Hematocrit 33.7 % (35.5-45.6); Hemoglobin 10.4 gm/dl (11.8-15.2); Mean Corpuscular HGB Conc 31 % (32-34); Mean Corpuscular Volume 73 fl (84-94); Platelet Count 203 K/mm3 (140-440); Red Blood Count 4.65 M/mm3 (3.65-5.03); Red Cell Distribution Width 17.5 % (13.2-15.2)
[2022-02-09 05:50] LABS: BUN/Creatinine Ratio 15; Blood Urea Nitrogen 12 mg/dL (9-20); Calcium 8.7 mg/dL (8.4-10.2); Hemolysis Index 9
[2022-02-09] MEDS: ONDANSETRON 4 MG/2 ML INJ IV PRN (07:14)
[2022-02-09] MEDS ORDERED: KETOROLAC 30 MG/1 ML INJ IV SCH (09:00)
[2022-02-09] MEDS: SENNOSIDES/DOCUSATE SODIUM 8.6/50 MG TAB FEEDTUBE SCH ×2 (09:03→21:46)
[2022-02-09] MEDS: PYRIDOSTIGMINE BROMIDE 60 MG TAB PO SCH (09:03)
[2022-02-09] MEDS: FAMOTIDINE 20 MG TAB FEEDTUBE SCH ×2 (09:03→21:46)
[2022-02-09] MEDS ORDERED: FUROSEMIDE 40 MG/4 ML INJ IV SCH (09:45)
[2022-02-09] MEDS ORDERED: POTASSIUM PHOSPHATE 15 MMOL in SODIUM CHLORIDE 0.9% 250ML 250 ML IV SCH (10:00)
--- NOTE | 2022-02-09 10:11 | Progress Note ---
Assessment and Plan Myasthenic crisis, now on MVS Obesity Possible ANTON / OHS Blurry vision Mild hypokalemia Mild metabolic acidosis Tolerating PSV, get weaning parameters, RSBI and NIF If acceptable will liberate from MVS. Neurology exam much improved. Post extubation, keep NPO, and conitnue to monitro in [facility] ICU -continue IVIG to complete course,resume immunosuppresants -If no improvement, will need plasmapharesis per Neurology - avoid aminoglycosides, flouroquinolones -keep potassium at 4, Mag at 2 and Phos at >2.5 - continue to titrate supplemental oxygen to keep SpO2 90-92% - VAP bundle addressed, aspiration precautions HOB >40 - continue lung protective strategies - continue bronchodilators with pulmonary hygiene per RT - continue accuchecks with glycemic control per SSI (While critically ill target blood glucose of 140-180 mg/dL; avoid hypoglycemia) - avoid nephrotoxins, renally dose all medications - continue to avoid benzodiazepines, reduce the possibility of delirium - prn analgesia per CPOT score - Maintenance of sleep-wake cycle, avoid delirium - continue enteral nutritional support at goal rate as tolerated - VTE prophylaxis- Heparin -Stress ulcer prophylaxis- Famotidine - mobility, off loading and frequent turning per facility protocol to prevent pressure ulcers - Monitor hemodynamics closely - continue other care per attending / other consultants CONDITION: CRITICAL PROGNOSIS: GUARDED CODE STATUS: FULL CODE The high probability of a clinically significant, sudden or life-threatening deterioration of the [respiratory, neurologic] system(s) required my full and direct attention, intervention and personal management. The aggregate critical care time was [35] minutes without overlap. Time includes spent on; [x] Data Review and interpretation [x] Patient assessment and monitoring of vital signs [x] Documentation [x] Medication orders and management Subjective Date of service: 02/09/22 Principal diagnosis: Myasthenic crisis; Obesity; Possible ANTON/OHS; Blurry vision; Hypokalemia Interval history: Patient is seen today for: Myasthenic crisis; Obesity; Possible ANTON / OHS; Blurry vision; Mild hypokalemia; Mild metabolic acidosis Seen and examined at bedside; 24hour events reviewed; nursing and respiratory care staff consulted; no adverse overnight events reported to me; resting in bed;s/p emergent intubation yesterday; denies N/V/F/C; awake and alert- communicates with non verbal cues and writes on a pad. Currently on PSv Psupp of 6, comfortable Objective Vital Signs - 12hr 02/08/22 02/08/22 02/08/22 23:00 23:03 23:44 Temperature Pulse Rate 57 L 56 L 77 Respiratory 14 15 Rate Blood Pressure 113/65 113/65 113/65 O2 Sat by Pulse 99 99 94 Oximetry 02/08/22 02/08/22 02/09/22 23:52 23:53 00:00 Temperature 99 F Pulse Rate 57 L Respiratory 15 Rate Blood Pressure 109/65 O2 Sat by Pulse 99 94 Oximetry 02/09/22 02/09/22 02/09/22 01:00 02:00 03:00 Temperature Pulse Rate 68 59 L 86 Respiratory 16 16 18 Rate Blood Pressure 98/47 96/52 117/76 O2 Sat by Pulse 96 100 Oximetry 02/09/22 02/09/22 02/09/22 04:00 04:17 05:00 Temperature 99 F Pulse Rate 61 62 58 L Respiratory 15 15 Rate Blood Pressure 108/60 108/60 127/71 O2 Sat by Pulse 99 99 100 Oximetry 02/09/22 02/09/22 02/09/22 05:30 06:01 07:01 Temperature Pulse Rate 62 60 64 Respiratory 14 14 15 Rate Blood Pressure 127/71 132/76 116/69 O2 Sat by Pulse 99 100 97 Oximetry 02/09/22 02/09/22 02/09/22 07:41 08:00 08:01 Temperature 97.9 F Pulse Rate 65 82 65 Respiratory 7 L 14 Rate Blood Pressure 116/69 118/69 O2 Sat by Pulse 99 97 Oximetry 02/09/22 02/09/22 02/09/22 09:01 09:40 10:01 Temperature Pulse Rate 68 73 83 Respiratory 21 12 13 Rate Blood Pressure 122/64 122/64 131/74 O2 Sat by Pulse 95 94 90 Oximetry Constitutional: no acute distress, other (young obese male on BIPAP ) Eyes: non-icteric ENT: oropharynx moist Neck: supple, no lymphadenopathy, no JVD, other (large circumference) Effort: mildly labored Ascultation: Bilateral: clear, diminished breath sounds Percussion: Bilateral: not dull Cardiovascular: regular rate and rhythm Gastrointestinal: normoactive bowel sounds, soft, non-tender, non-distended (protuberant) Integumentary: normal Extremities: no cyanosis, no edema, pulses normal, no ischemia or petechiae Neurologic: non-focal exam (grossly; generalized weakness), pupils equal and round, CN II-XII normal, other (power 3/5 bilaterally) CBC and BMP: 02/10/22 04:50 02/10/22 04:50 ABG, PT/INR, D-dimer: ABG ABG pH 7.333 pH Units (7.350-7.450) L 02/08/22 09:20 ABG pCO2 48.2 mm Hg 02/08/22 09:20 ABG pO2 114.7 mm Hg (80.0-90.0) H 02/08/22 09:20 ABG O2 Saturation 97.9 % (95.0-99.0) 02/08/22 09:20 Abnormal lab findings: Abnormal Labs 02/06/22 02/06/22 02/06/22 12:39 12:39 13:59 RBC 5.75 H Hgb Hct MCV 74 L MCH 23 L MCHC 30 L RDW 16.9 H Lymph % (Auto) 6.4 L Bartholomew % (Auto) Lymph # (Auto) 0.5 L Seg Neutrophils % 89.3 H ABG pH ABG pO2 ABG Hemoglobin 12.6 L Oxyhemoglobin Potassium 3.5 L Chloride 109.1 H Carbon Dioxide 20 L Creatinine 0.7 L Glucose 113 H 02/07/22 02/07/22 02/08/22 04:15 12:00 04:23 RBC 5.10 H Hgb 11.5 L 11.0 L Hct MCV 72 L 74 L MCH 23 L 22 L MCHC 30 L RDW 17.3 H 17.1 H Lymph % (Auto) Bartholomew % (Auto) 9.1 H Lymph # (Auto) Seg Neutrophils % ABG pH ABG pO2 72.6 L ABG Hemoglobin 12.2 L Oxyhemoglobin 94.4 L Potassium Chloride Carbon Dioxide Creatinine Glucose 02/08/22 02/08/22 02/09/22 04:23 09:20 04:50 RBC Hgb 10.4 L Hct 33.7 L MCV 73 L MCH 22 L MCHC 31 L RDW 17.5 H Lymph % (Auto) Bartholomew % (Auto) Lymph # (Auto) Seg Neutrophils % ABG pH 7.333 L ABG pO2 114.7 H ABG Hemoglobin 11.1 L Oxyhemoglobin Potassium Chloride 109.3 H Carbon Dioxide Creatinine 0.6 L Glucose 02/09/22 04:50 RBC Hgb Hct MCV MCH MCHC RDW Lymph % (Auto) Bartholomew % (Auto) Lymph # (Auto) Seg Neutrophils % ABG pH ABG pO2 ABG Hemoglobin Oxyhemoglobin Potassium Chloride Carbon Dioxide Creatinine Glucose 107 H Chest x-ray: image reviewed (Alveolar edema with cardiomegaly) Allied health notes reviewed: RT
--- NOTE | 2022-02-09 10:12 | Event Note ---
Date: 02/09/22 Post extubation, complains of itchy throat, with SpO2 dropping to the low 80s. He is able to clear secretions and is awake and alert. Trial of CPA, keep NPO. Low threshold to re-intubate if he fails CPAP
--- NOTE | 2022-02-09 11:27 | Progress Note ---
<MARNI RIHCEY - Last Filed: 02/09/22 18:46> Assessment and Plan Assessment and plan: This is a 36-year-old male with known past medical history of obesity and myasthenia gravis admitted for myasthenia gravis crisis. Hospital Course to Date: 02/07: S/p X1 dose of IV IG overnight, patient reported feeling much better and stronger this am, moving all extremities. Plan to wean off Bipap this am. Okay to start a diet if patient pass bedside swallow. D/W CCM plan for CT chest w con tomorrow to r/o thymoma. Neurology consulted. 02/08: S/p emergent intubattion by anethesia yesterday. Now intubated and sedated, RASS -2. Neurology recommendations noted. Resumed home meds. Will wean off sedation this am for possible SAT/SBT. CT chest also noted with no evidence of thymoma. Continue IVIG. Attending received call back from [facility]. Transfer was declined, no available ICU beds at this time. They recommend continuing IVIG and possible plasma exchange. Awaiting on Neurology final recommendations. 02/09: S/p Extubation this am. Desated to 85% on 3L NC, SPO2 improved to 88% on 8L NC. This am CXR noted, worsen opacity of the left side. CCM at the bedside, X1 dose of IV Lasix ordered and place patient on Bipap. Low Threshold for reintubation. Plan of care and the high probability for reintubation was discussed with patient at the bedside. Patient verbalized understanding and agree with current care plan. Continue IVIG, Awaiting on Neurology final recommendations. 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 He was passing through [facility] when symptoms started - S/p emergent intubation by anethesia - CT chest w con showed no evidence of thymoma - Neurology consulted, appreciated recommendations - Resumed home meds: Cellcept, Mycophenolate, and Prednisone - Continue IV IG X5days - Will consider plasma exchange if no improvement by hospital day 5 - CCM also on consult, appreciated recommendations - Patient reported that his neurologist in [place] is Dr. Billie Delgado - Transfer to [facility] was declined, no available ICU beds at this time. They recommend continuing IVIG and possible plasma exchange #Acute Hypoxemic Respiratory Failure #Probable ANTON- On CPAP at home #Former Smoker - most likely related to MG crisis - S/p emergent intubation by anesthesia on 02/07 for airway protection - 02/09 s/p extubation, Low SPO2 currently 88% on 8L NC - This am CXR noted, worsen opacity of the left side. - CCM consulted, appreciate recommendations - X1 dose of IV Lasix ordered and place patient on Bipap - Continue IVIG - Aspiration precaution HOB above 30 - Keep patient NPO for now - Continue O2 supplementation and wean as tolerated - Continue SPO2 monitoring for SPO2 goal above 92% #Hepatic Hemangiomas - noted fro CT chest w/o con - Stable, LFTs within normal range - Outpatient follow up for US and further workups #Obesity - Balanced diet, increase physical activity discharge, outpatient pulmonary follow-up for sleep study, weight reduction. #GI/DVT Prophylaxis - PPI- Pepcid - Lovenox SubQ - SCD to bilateral lower extremities while in bed #Advance Care Planning - Disease education data, care plan, diagnoses, and prognosis were discussed with patient at the bedside. Patient is a Full code. Patient acknowledged understanding and agreement with current care plan. - Patient reported in case of an emergency and he is unable to make his own decision, his NOK is his aunt who resides in [place], [place]. Heike Araujo, phone# The high probability of a clinically significant, sudden or life threatening deterioration of the [multiple] system(s) required my full and direct attention, intervention and personal management. The aggregate critical care time was [60] minutes. This time is in addition to time spent performing reported procedures but includes the following: [x] Data Review and interpretation [x] Patient assessment and monitoring of vital signs [x] Documentation [x] Medication orders and management Disposition Plan: ICU Total Time Spent with Patient (Minutes): 60 History Interval history: Patient seen and examined at the bedside. S/p Extubation this am, Patient desated to 85% on 4L NC. SPO2 to 88% on 8L NC. Patient does not appear to be in distress and he voiced that he feels a lot stronger. VSS. ADAL overnight Hospitalist Physical - Constitutional Vitals: Temp Pulse Resp BP Pulse Ox 97.9 F 83 13 131/74 90 02/09/22 08:00 02/09/22 10:01 02/09/22 10:01 02/09/22 10:01 02/09/22 10:01 General appearance: Present: no acute distress, well-nourished, obese - EENT Eyes: Present: PERRL (Lt. eye ptosis) ENT: hearing intact - Neck Neck: Present: normal ROM - Respiratory Respiratory effort: normal Respiratory: right: diminished, left: rhonchi - Cardiovascular Rhythm: regular Heart Sounds: Present: S1 & S2 - Extremities Extremities: no ischemia, pulses intact, pulses symmetrical Extremity abnormal: edema - Peripheral Assessment Generalized Edema Type: Non-pitting Edema Degree: 2+ Capillary Refill: < 3 seconds Skin Temperature: Warm Peripheral Pulses: within normal limits - Abdominal General gastrointestinal: soft, non-distended, normal bowel sounds - Integumentary Integumentary: Present: clear, warm, dry - Psychiatric Psychiatric: appropriate mood/affect, cooperative - Neurologic Neurologic: moves all extremities (Generalized weakness) - Allied Health Allied health notes reviewed: nursing, case management Results - Labs CBC & Chem 7: 02/09/22 04:50 02/09/22 04:50 Labs: Laboratory Last Values WBC 6.2 K/mm3 (4.5-11.0) 02/09/22 04:50 RBC 4.65 M/mm3 (3.65-5.03) 02/09/22 04:50 Hgb 10.4 gm/dl (11.8-15.2) L 02/09/22 04:50 Hct 33.7 % (35.5-45.6) L 02/09/22 04:50 MCV 73 fl (84-94) L 02/09/22 04:50 MCH 22 pg (28-32) L 02/09/22 04:50 MCHC 31 % (32-34) L 02/09/22 04:50 RDW 17.5 % (13.2-15.2) H 02/09/22 04:50 Plt Count 203 K/mm3 (140-440) 02/09/22 04:50 Lymph % (Auto) 29.4 % (13.4-35.0) 02/07/22 04:15 Platte % (Auto) 9.1 % (0.0-7.3) H 02/07/22 04:15 Eos % (Auto) 0.4 % (0.0-4.3) 02/07/22 04:15 Baso % (Auto) 0.7 % (0.0-1.8) 02/07/22 04:15 Lymph # (Auto) 1.7 K/mm3 (1.2-5.4) 02/07/22 04:15 [place]atte # (Auto) 0.5 K/mm3 (0.0-0.8) 02/07/22 04:15 Eos # (Auto) 0.0 K/mm3 (0.0-0.4) 02/07/22 04:15 Baso # (Auto) 0.0 K/mm3 (0.0-0.1) 02/07/22 04:15 Seg Neutrophils % 60.4 % (40.0-70.0) 02/07/22 04:15 Seg Neutrophils # 3.6 K/mm3 (1.8-7.7) 02/07/22 04:15 ABG pH 7.333 pH Units (7.350-7.450) L 02/08/22 09:20 ABG pCO2 48.2 mm Hg 02/08/22 09:20 ABG pO2 114.7 mm Hg (80.0-90.0) H 02/08/22 09:20 ABG HCO3 25.0 mmol/L (20.0-26.0) 02/08/22 09:20 ABG O2 Saturation 97.9 % (95.0-99.0) 02/08/22 09:20 ABG O2 Content 15.1 (0.0-44) 02/08/22 09:20 ABG Base Excess -1.1 mmol/L (-2.0-3.0) 02/08/22 09:20 ABG Hemoglobin 11.1 gm/dl (14.0-18.0) L 02/08/22 09:20 ABG Carboxyhemoglobin 1.4 % (0.0-5.0) 02/08/22 09:20 ABG Methemoglobin 0.5 % (0.0-1.5) 02/08/22 09:20 Oxyhemoglobin 96.1 % (95.0-99.0) 02/08/22 09:20 FiO2 35 % 02/08/22 09:20 Sodium 139 mmol/L (137-145) 02/09/22 04:50 Potassium 3.6 mmol/L (3.6-5.0) 02/09/22 04:50 Chloride 104.4 mmol/L (98-107) 02/09/22 04:50 Carbon Dioxide 26 mmol/L (22-30) 02/09/22 04:50 Anion Gap 12 mmol/L 02/09/22 04:50 BUN 12 mg/dL (9-20) 02/09/22 04:50 Creatinine 0.8 mg/dL (0.8-1.3) 02/09/22 04:50 Estimated GFR > 60 ml/min 02/09/22 04:50 BUN/Creatinine Ratio 15 % 02/09/22 04:50 Glucose 107 mg/dL (75-100) H 02/09/22 04:50 Calcium 8.7 mg/dL (8.4-10.2) 02/09/22 04:50 Total Bilirubin 0.40 mg/dL (0.1-1.2) 02/07/22 04:15 AST 9 units/L (5-40) 02/07/22 04:15 ALT 11 units/L (7-56) 02/07/22 04:15 Alkaline Phosphatase 75 units/L (35-129) 02/07/22 04:15 Total Protein 7.0 g/dL (6.3-8.2) 02/07/22 04:15 Albumin 4.0 g/dL (3.9-5) 02/07/22 04:15 Albumin/Globulin Ratio 1.3 % 02/07/22 04:15 Microbiology: Microbiology 02/07/22 12:30 Tracheal Aspirate Sputum Culture - Final Roberson/IV: Voiding Method Urinal Active Medications - Current Medications Current Medications: Generic Name Dose Route Start Last Admin Trade Name Freq PRN Reason Stop Dose Admin Acetaminophen 650 mg 02/06/22 15:00 Acetaminophen 325 Mg Tab PO Q6H PRN Pain MILD(1-3)/Fever >100.5/WEINBERG Albuterol 2.5 mg 02/06/22 15:00 Albuterol 2.5 Mg/3 Ml Nebu IH Q3HRT PRN Shortness Of Breath Enoxaparin Sodium 40 mg 02/06/22 22:00 02/08/22 21:10 Enoxaparin 40 Mg/0.4 Ml Inj SUB-Q 40 mg QDAY@2200 NESTOR Administration Protocol Famotidine 20 mg 02/08/22 10:00 02/09/22 09:03 Famotidine 20 Mg Tab FEEDTUBE 20 mg BID NESTOR Administration Fentanyl 50 mcg 02/07/22 10:55 02/07/22 11:12 Fentanyl 100 Mcg/2 Ml Inj IV 50 mcg Q10MIN PRN Administration ANALGESIA Furosemide 40 mg 02/09/22 09:45 02/09/22 09:30 Furosemide 40 Mg/4 Ml Inj IV 02/09/22 13:45 40 mg ONCE@0945 [facility] Administration Hydrophilic Ointment 1 applic 02/07/22 10:55 Lip Therapy Vaseline TP Q2HR PRN Dry Lips IMMUNE GLOBUL G/GLY/IGA AVG 46 351 mls @ 100 mls/hr 02/06/22 19:00 02/08/22 22:10 20 gm/ IMMUNE GLOBUL G/GLY/ IV 02/10/22 22:31 Infused IGA AVG 46 10 gm/ IMMUNE Q24H NESTOR Infusion GLOBUL G/GLY/IGA AVG 46 5 gm/ Miscellaneous Information Fentanyl Citrate 2,000 mcg in 100 mls @ 5.11 mls/hr 02/07/22 11:00 02/08/22 19:03 Fentanyl Drip Premix IV 0 mcg/kg/hr TITR NESTOR 0 mls/hr Titration Protocol 1 MCG/KG/HR Potassium Phosphate 15 mmol/ 255 mls @ 63 mls/hr 02/09/22 10:00 02/09/22 10:06 Sodium Chloride IV 02/09/22 14:00 63 mls/hr ONCE@1000 NESTOR Administration Ketorolac Tromethamine 30 mg 02/09/22 09:00 02/09/22 09:02 Ketorolac 30 Mg/1 Ml Inj IV 02/09/22 12:00 30 mg ONCE@0900 [facility] Administration Morphine Sulfate 1 mg 02/06/22 15:00 Morphine 2 Mg/1 Ml Inj IV Q6H PRN Pain , Severe (7-10) Multi-Ingred Cream/Lotion/Oil/Oint 1 applic 02/07/22 10:55 Mineral Oil/Petrolatum, White Ophth Oint 3.5 Gm OU Q4HR PRN Dry Eye(s) Mycophenolate Mofetil 1,000 mg 02/09/22 10:00 Mycophenolate 1000 Mg/5 Ml Oral Liqd FEEDTUBE BID NESTOR Ondansetron HCl 4 mg 02/08/22 17:00 02/09/22 07:14 Ondansetron 4 Mg/2 Ml Inj IV 4 mg Q8H PRN Administration Nausea And Vomiting Oxycodone/Acetaminophen 1 tab 02/06/22 15:00 Oxycodone /Acetaminophen 5-325mg Tab PO Q16H PRN Pain, Moderate (4-6) Prednisone 10 mg 02/08/22 10:00 02/08/22 09:43 Prednisone 10 Mg Tab PO 10 mg QDAY NESTOR Administration Pyridostigmine [place] 180 mg 02/08/22 10:00 02/09/22 09:03 Pyridostigmine [place] 60 Mg Tab PO 180 mg DAILY NESTOR Administration Senna/Docusate Sodium 1 tab 02/07/22 22:00 02/09/22 09:03 Sennosides/Docusate Sodium 8.6/50 Mg Tab FEEDTUBE 1 tab BID NESTOR Administration Sodium Chloride 10 ml 02/06/22 22:00 02/09/22 09:03 Sodium Chloride 0.9% 10 Ml Flush Syringe IV 10 ml BID NESTOR Administration Sodium Chloride 10 ml 02/06/22 13:59 Sodium Chloride 0.9% 10 Ml Flush Syringe IV PRN PRN LINE FLUSH Nutrition/Malnutrition Assess - Dietary Evaluation Nutrition/Malnutrition Findings: Nutrition Notes Start: 02/07/22 13:09 Freq: Status: Active Protocol: Document 02/07/22 13:09 PRADEEP (Rec: 02/07/22 13:44 PRADEEP [id number]) Nutrition Notes Need for Assessment generated from: MD Order Initial or Follow up Assessment Other Pertinent Diagnosis Myasthenia Gravis. Current Diet NPO (since 02/06 13:59), TF- Jevity 1.2 Zana @ 70 ml/hr ( from D 02/07). Labs/Tests 02/07: WNL. Pertinent Medications 02/07: nutritionally unremarkable. 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 Pt currently on NPO. Pt is on Mechanical ventilation, O2 saturation @ 100%, according to Mechanical Ventilation History Assessment notes. Pt was intubated at 11:00 on 02/07, according to Event notes. Pt awaiting for tranfer to [facility], according to Event notes. Percent of energy/protein needs met: Pt currently on NPO. Prescribed TF-Jevity 1.2 Zana @ 70 ml/hr provides for energy/ protein needs (2,010 Kcal/93 g ) during LOS, 98% Kcal; 104% AA. Burn Absent Trauma Absent GI Symptoms None Food Allergy No Skin Integrity/Comment Assessment WNL. Current % PO Other Minimum of two criteria No Fluid Accumulation N/A Reduced Guidance Secretary Strength N/A (non-severe) Protein-Calorie Malnutrition N\A #1 Nutrition Diagnosis Inadequate oral intake Etiology Pt is on Mechanical Ventilation. As Evidenced by Signs and Symptoms Pt currently on NPO. Is patient on ventilator? Yes Is Patient Ambulatory and/or Out of Bed No REE-([facility]-confined to bed) 2352.060 Kcal/Kg value to use for calculation 20 Approximate Energy Requirements Using 2044 kcal/Kg Calculation Used for Recommendations Kcal/kg Additional Notes Protein: 0.8-1 g/Kg AdjBW; 71- 89 g/day. Fluids: 1 ml/Kcal, or as per MD. Nutrition Intervention Nutrition Support: Start TF-Jevity 1.2 Zana @ 70 ml/hr. Flush: 120 ml water Q 4 hr, or as per MD. Kcal 2,010 Protein (gm) 93 Carbohydrates (gm) 284 Fat (gm) 66 Fluid (mL) 1,352 Fiber (gm) 30 % RDI: 98% Kcal; 104% AA. Goal #1 Provide at least 75% of energy /protein needs through Enteral Feeding during LOS. Follow-Up By: 02/09/22 Additional Comments Start monitoring TF tolerance and BM. <LELO ODONNELL - Last Filed: 02/10/22 07:34> Assessment and Plan Assessment and plan: I saw and evaluated the patient. I agree with the findings and the plan of care as documented in the Nurse Practitioner's~note, with the following corrections and additions. Hospitalist Physical - Constitutional Vitals: Temp Pulse Resp BP Pulse Ox 97.3 F L 40 L 14 120/77 100 02/10/22 04:00 02/10/22 07:01 02/10/22 07:01 02/10/22 07:01 02/10/22 07:01 Results - Labs CBC & Chem 7: 02/10/22 04:50 02/10/22 04:50 Labs: Laboratory Last Values WBC 4.4 K/mm3 (4.5-11.0) L 02/10/22 04:50 RBC 4.53 M/mm3 (3.65-5.03) 02/10/22 04:50 Hgb 10.1 gm/dl (11.8-15.2) L 02/10/22 04:50 Hct 32.9 % (35.5-45.6) L 02/10/22 04:50 MCV 73 fl (84-94) L 02/10/22 04:50 MCH 22 pg (28-32) L 02/10/22 04:50 MCHC 31 % (32-34) L 02/10/22 04:50 RDW 17.2 % (13.2-15.2) H 02/10/22 04:50 Plt Count 205 K/mm3 (140-440) 02/10/22 04:50 Lymph % (Auto) 29.4 % (13.4-35.0) 02/07/22 04:15 [place]atte % (Auto) 9.1 % (0.0-7.3) H 02/07/22 04:15 Eos % (Auto) 0.4 % (0.0-4.3) 02/07/22 04:15 Baso % (Auto) 0.7 % (0.0-1.8) 02/07/22 04:15 Lymph # (Auto) 1.7 K/mm3 (1.2-5.4) 02/07/22 04:15 [place]atte # (Auto) 0.5 K/mm3 (0.0-0.8) 02/07/22 04:15 Eos # (Auto) 0.0 K/mm3 (0.0-0.4) 02/07/22 04:15 Baso # (Auto) 0.0 K/mm3 (0.0-0.1) 02/07/22 04:15 Seg Neutrophils % 60.4 % (40.0-70.0) 02/07/22 04:15 Seg Neutrophils # 3.6 K/mm3 (1.8-7.7) 02/07/22 04:15 ABG pH 7.333 pH Units (7.350-7.450) L 02/08/22 09:20 ABG pCO2 48.2 mm Hg 02/08/22 09:20 ABG pO2 114.7 mm Hg (80.0-90.0) H 02/08/22 09:20 ABG HCO3 25.0 mmol/L (20.0-26.0) 02/08/22 09:20 ABG O2 Saturation 97.9 % (95.0-99.0) 02/08/22 09:20 ABG O2 Content 15.1 (0.0-44) 02/08/22 09:20 ABG Base Excess -1.1 mmol/L (-2.0-3.0) 02/08/22 09:20 ABG Hemoglobin 11.1 gm/dl (14.0-18.0) L 02/08/22 09:20 ABG Carboxyhemoglobin 1.4 % (0.0-5.0) 02/08/22 09:20 ABG Methemoglobin 0.5 % (0.0-1.5) 02/08/22 09:20 Oxyhemoglobin 96.1 % (95.0-99.0) 02/08/22 09:20 FiO2 35 % 02/08/22 09:20 Sodium 141 mmol/L (137-145) 02/10/22 04:50 Potassium 3.9 mmol/L (3.6-5.0) 02/10/22 04:50 Chloride 102.0 mmol/L (98-107) 02/10/22 04:50 Carbon Dioxide 30 mmol/L (22-30) 02/10/22 04:50 Anion Gap 13 mmol/L 02/10/22 04:50 BUN 12 mg/dL (9-20) 02/10/22 04:50 Creatinine 0.9 mg/dL (0.8-1.3) 02/10/22 04:50 Estimated GFR > 60 ml/min 02/10/22 04:50 BUN/Creatinine Ratio 13 % 02/10/22 04:50 Glucose 90 mg/dL (75-100) 02/10/22 04:50 Calcium 9.2 mg/dL (8.4-10.2) 02/10/22 04:50 Total Bilirubin 0.40 mg/dL (0.1-1.2) 02/07/22 04:15 AST 9 units/L (5-40) 02/07/22 04:15 ALT 11 units/L (7-56) 02/07/22 04:15 Alkaline Phosphatase 75 units/L (35-129) 02/07/22 04:15 Total Protein 7.0 g/dL (6.3-8.2) 02/07/22 04:15 Albumin 4.0 g/dL (3.9-5) 02/07/22 04:15 Albumin/Globulin Ratio 1.3 % 02/07/22 04:15 Microbiology: Microbiology 02/07/22 12:30 Tracheal Aspirate Sputum Culture - Final Roberson/IV: Voiding Method Urinal Active Medications - Current Medications Current Medications: Generic Name Dose Route Start Last Admin Trade Name Freq PRN Reason Stop Dose Admin Acetaminophen 650 mg 02/06/22 15:00 Acetaminophen 325 Mg Tab PO Q6H PRN Pain MILD(1-3)/Fever >100.5/WEINBERG Albuterol 2.5 mg 02/06/22 15:00 Albuterol 2.5 Mg/3 Ml Nebu IH Q3HRT PRN Shortness Of Breath Enoxaparin Sodium 40 mg 02/06/22 22:00 02/09/22 21:46 Enoxaparin 40 Mg/0.4 Ml Inj SUB-Q 40 mg QDAY@2200 NESTOR Administration Protocol Famotidine 20 mg 02/08/22 10:00 02/09/22 21:46 Famotidine 20 Mg Tab FEEDTUBE 20 mg BID NESTOR Administration Fentanyl 50 mcg 02/07/22 10:55 02/07/22 11:12 Fentanyl 100 Mcg/2 Ml Inj IV 50 mcg Q10MIN PRN Administration ANALGESIA Hydrophilic Ointment 1 applic 02/07/22 10:55 Lip Therapy Vaseline TP Q2HR PRN Dry Lips IMMUNE GLOBUL G/GLY/IGA AVG 46 351 mls @ 100 mls/hr 02/06/22 19:00 02/10/22 01:25 20 gm/ IMMUNE GLOBUL G/GLY/ IV 02/10/22 22:31 Infused IGA AVG 46 10 gm/ IMMUNE Q24H NESTOR Infusion GLOBUL G/GLY/IGA AVG 46 5 gm/ Miscellaneous Information Fentanyl Citrate 2,000 mcg in 100 mls @ 5.11 mls/hr 02/07/22 11:00 02/08/22 19:03 Fentanyl Drip Premix IV 0 mcg/kg/hr TITR NESTOR 0 mls/hr Titration Protocol 1 MCG/KG/HR Morphine Sulfate 1 mg 02/06/22 15:00 Morphine 2 Mg/1 Ml Inj IV Q6H PRN Pain , Severe (7-10) Multi-Ingred Cream/Lotion/Oil/Oint 1 applic 02/07/22 10:55 Mineral Oil/Petrolatum, White Ophth Oint 3.5 Gm OU Q4HR PRN Dry Eye(s) Mycophenolate Mofetil 1,000 mg 02/09/22 10:00 02/09/22 21:46 Mycophenolate 1000 Mg/5 Ml Oral Liqd FEEDTUBE 1,000 mg BID NESTOR Administration Ondansetron HCl 4 mg 02/08/22 17:00 02/09/22 07:14 Ondansetron 4 Mg/2 Ml Inj IV 4 mg Q8H PRN Administration Nausea And Vomiting Oxycodone/Acetaminophen 1 tab 02/06/22 15:00 Oxycodone /Acetaminophen 5-325mg Tab PO Q16H PRN Pain, Moderate (4-6) Prednisone 10 mg 02/08/22 10:00 02/09/22 12:33 Prednisone 10 Mg Tab PO 10 mg QDAY NESTOR Administration Pyridostigmine [place] 180 mg 02/08/22 10:00 02/09/22 09:03 Pyridostigmine [place] 60 Mg Tab PO 180 mg DAILY NESTOR Administration Senna/Docusate Sodium 1 tab 02/07/22 22:00 02/09/22 21:46 Sennosides/Docusate Sodium 8.6/50 Mg Tab FEEDTUBE 1 tab BID NESTOR Administration Sodium Chloride 10 ml 02/06/22 22:00 02/09/22 21:46 Sodium Chloride 0.9% 10 Ml Flush Syringe IV 10 ml BID NESTOR Administration Sodium Chloride 10 ml 02/06/22 13:59 Sodium Chloride 0.9% 10 Ml Flush Syringe IV PRN PRN LINE FLUSH Nutrition/Malnutrition Assess - Dietary Evaluation Nutrition/Malnutrition Findings: Nutrition Notes Start: 02/07/22 13:09 Freq: Status: Active Protocol: Document 02/09/22 11:58 LATOYA (Rec: 02/09/22 12:06 LATOYA [id number]) Nutrition Notes Initial or Follow up Reassessment Current Diagnosis Respiratory Failure Other Pertinent Diagnosis Myasthenia gravis crisis Current Diet TF - Jevity 1.2 at 70ml/hr Labs/Tests Reviewed Pertinent Medications Lasix, 15mmol KPhos x 1 dose, Prednisone Height 5 ft 10 in Weight 102.194 kg [place] Body Weight (kg) 75.45 BMI 32.3 Weight Status Obese Subjective/Other Information Pt remains on vent support, however, may be extubated this am; TF on hold in anticipation of extubation. Burn Absent Trauma Absent Minimum of two criteria No #1 Nutrition Diagnosis Inadequate oral intake As Evidenced by Signs and Symptoms pt remains NPO Diagnosis Progress(for reassessment Continues documentation) Is patient on ventilator? Yes Is Patient Ambulatory and/or Out of Bed No REE-([facility]-confined to bed) 2352.060 Kcal/Kg value to use for calculation 18 Approximate Energy Requirements Using 1839 kcal/Kg Calculation Used for Recommendations Kcal/kg Additional Notes Pro needs 2g/kg IBW: 151g/day Fluid needs 1ml/kcal Nutrition Intervention Change Diet Order: Advance diet when medically feasible Nutrition Support: Resume TF if necessary; change TF formula to Vital AF 1.2 at 65ml/hr. Goal #1 Either advance diet or resume TF to meet nutrient needs Follow-Up By: 02/12/22 Additional Comments F/U: diet advancement vs TF restart, extubation
[2022-02-09] MEDS: MYCOPHENOLATE FEEDTUBE SCH ×2 (12:33→21:46)
[2022-02-09] MEDS: predniSONE 10 MG TAB PO SCH (12:33)
[2022-02-09] MEDS: [UNRECOGNIZED DRUG - OTHER] IV SCH (18:13)
[2022-02-09] MEDS: GLY IV SCH (18:13)
[2022-02-09] MEDS: IMMUNE GLOBUL IV SCH (18:13)
[2022-02-09] MEDS: IGA AVG IV SCH (18:13)
[2022-02-09] MEDS: ENOXAPARIN 40 MG/0.4 ML INJ SUB-Q SCH (21:46)
[2022-02-10 05:10] LABS: Hematocrit 32.9 % (35.5-45.6); Hemoglobin 10.1 gm/dl (11.8-15.2); Mean Corpuscular HGB Conc 31 % (32-34); Mean Corpuscular Volume 73 fl (84-94); Platelet Count 205 K/mm3 (140-440); Red Blood Count 4.53 M/mm3 (3.65-5.03); Red Cell Distribution Width 17.2 % (13.2-15.2)
[2022-02-10 05:37] LABS: BUN/Creatinine Ratio 13; Blood Urea Nitrogen 12 mg/dL (9-20); Calcium 9.2 mg/dL (8.4-10.2); Hemolysis Index 12
--- NOTE | 2022-02-10 09:12 | XRay Report ---
CHEST 1 VIEW INDICATION / CLINICAL INFORMATION: F/u respiratory failure STUDY TIME: 838 COMPARISON: 02/09/2022 FINDINGS: SUPPORT DEVICES: Tubes have been removed HEART / MEDIASTINUM: No significant abnormality. LUNGS / PLEURA: Previous density of the left has almost completely cleared with only minimal basilar atelectasis remaining. Right lung field clear. No pneumothorax. ADDITIONAL FINDINGS: No significant additional findings. Signer Name: Omi Jimenez MD Signed: 02/10/2022 9:07 AM Workstation Name: [id number]
[2022-02-10] MEDS: SENNOSIDES/DOCUSATE SODIUM 8.6/50 MG TAB FEEDTUBE SCH ×2 (09:42→21:17)
[2022-02-10] MEDS: predniSONE 10 MG TAB PO SCH (09:42)
[2022-02-10] MEDS: PYRIDOSTIGMINE BROMIDE 60 MG TAB PO SCH (09:42)
[2022-02-10] MEDS: FAMOTIDINE 20 MG TAB FEEDTUBE SCH ×2 (09:42→21:17)
[2022-02-10] MEDS: MYCOPHENOLATE FEEDTUBE SCH ×2 (09:44→21:17)
--- NOTE | 2022-02-10 11:11 | Progress Note ---
Assessment and Plan Myasthenic crisis, s/p MVS Obesity Possible ANTON / OHS Blurry vision Mild hypokalemia-resolved Mild metabolic acidosis-resolved -continue IVIG to complete course,continue immunosuppresants -If no improvement, will need plasmapharesis per Neurology - avoid aminoglycosides, flouroquinolones -keep potassium at 4, Mag at 2 and Phos at >2.5 - continue to titrate supplemental oxygen to keep SpO2 90-92% - CPAP qhs and prn - continue bronchodilators with pulmonary hygiene per RT - continue accuchecks with glycemic control per SSI (While critically ill target blood glucose of 140-180 mg/dL; avoid hypoglycemia) - avoid nephrotoxins, renally dose all medications - continue to avoid benzodiazepines, reduce the possibility of delirium - prn analgesia per CPOT score - Maintenance of sleep-wake cycle, avoid delirium - VTE prophylaxis- Heparin -Stress ulcer prophylaxis- Famotidine - PT/OT to evlauate and treat - continue other care per attending / other consultants Can transfer IMCU CONDITION: FAIR PROGNOSIS: GUARDED CODE STATUS: FULL CODE Subjective Date of service: 02/10/22 Principal diagnosis: Myasthenic crisis; Obesity; Possible ATNON/OHS; Blurry vision; Hypokalemia Interval history: Patient is seen today for: Myasthenic crisis; Obesity; Possible ANTON / OHS; Blurry vision; Mild hypokalemia; Mild metabolic acidosis Seen and examined at bedside; 24hour events reviewed; nursing and respiratory care staff consulted; no adverse overnight events reported to me; resting in bed; denies N/V/F/C; awake and alert, weakness much improved, he can clear secretions, swallowing well. Was on CPAP overnight, dose of IVIG tonight. Objective Vital Signs - 12hr 02/09/22 02/09/22 02/09/22 23:20 23:23 23:39 Temperature Pulse Rate 64 57 L 52 L Pulse Rate [ From Monitor] Respiratory 16 16 Rate Blood Pressure 104/87 104/87 O2 Sat by Pulse 100 100 98 Oximetry 02/10/22 02/10/22 02/10/22 00:00 01:01 02:00 Temperature 97.4 F L Pulse Rate 46 L 39 L 41 L Pulse Rate [ From Monitor] Respiratory 16 18 16 Rate Blood Pressure 113/68 98/55 108/60 O2 Sat by Pulse 100 100 100 Oximetry 02/10/22 02/10/22 02/10/22 03:01 04:00 05:00 Temperature 97.3 F L Pulse Rate 42 L 38 L 43 L Pulse Rate [ From Monitor] Respiratory 14 15 15 Rate Blood Pressure 114/67 112/69 112/69 O2 Sat by Pulse 100 100 100 Oximetry 02/10/22 02/10/22 02/10/22 06:01 07:01 08:00 Temperature 98 F Pulse Rate 39 L 40 L 46 L Pulse Rate [ 46 L From Monitor] Respiratory 15 14 Rate Blood Pressure 114/69 120/77 O2 Sat by Pulse 100 100 100 Oximetry 02/10/22 02/10/22 02/10/22 08:01 09:01 10:01 Temperature Pulse Rate 40 L 54 L 61 Pulse Rate [ From Monitor] Respiratory 16 17 14 Rate Blood Pressure 118/71 112/53 106/65 O2 Sat by Pulse 100 100 100 Oximetry 02/10/22 11:01 Temperature Pulse Rate 48 L Pulse Rate [ From Monitor] Respiratory 18 Rate Blood Pressure 107/67 O2 Sat by Pulse 100 Oximetry Constitutional: no acute distress, alert, other (young obese male ) Eyes: non-icteric ENT: oropharynx moist Neck: supple, no lymphadenopathy, no JVD, other (large circumference) Effort: mildly labored Ascultation: Bilateral: clear, diminished breath sounds Percussion: Bilateral: not dull Cardiovascular: regular rate and rhythm Gastrointestinal: normoactive bowel sounds, soft, non-tender, non-distended (protuberant) Integumentary: normal Extremities: no cyanosis, no edema, pulses normal, no ischemia or petechiae Neurologic: non-focal exam (grossly; generalized weakness), pupils equal and round, CN II-XII normal, motor strength normal and, other (power 3/5 bilaterally) Psychiatric: mood appropriate, affect normal CBC and BMP: 02/11/22 04:38 02/11/22 04:38 ABG, PT/INR, D-dimer: ABG ABG pH 7.333 pH Units (7.350-7.450) L 02/08/22 09:20 ABG pCO2 48.2 mm Hg 02/08/22 09:20 ABG pO2 114.7 mm Hg (80.0-90.0) H 02/08/22 09:20 ABG O2 Saturation 97.9 % (95.0-99.0) 02/08/22 09:20 Abnormal lab findings: Abnormal Labs 02/06/22 02/06/22 02/06/22 12:39 12:39 13:59 WBC RBC 5.75 H Hgb Hct MCV 74 L MCH 23 L MCHC 30 L RDW 16.9 H Lymph % (Auto) 6.4 L [place] % (Auto) Lymph # (Auto) 0.5 L Seg Neutrophils % 89.3 H ABG pH ABG pO2 ABG Hemoglobin 12.6 L Oxyhemoglobin Potassium 3.5 L Chloride 109.1 H Carbon Dioxide 20 L Creatinine 0.7 L Glucose 113 H 02/07/22 02/07/22 02/08/22 04:15 12:00 04:23 WBC RBC 5.10 H Hgb 11.5 L 11.0 L Hct MCV 72 L 74 L MCH 23 L 22 L MCHC 30 L RDW 17.3 H 17.1 H Lymph % (Auto) [place] % (Auto) 9.1 H Lymph # (Auto) Seg Neutrophils % ABG pH ABG pO2 72.6 L ABG Hemoglobin 12.2 L Oxyhemoglobin 94.4 L Potassium Chloride Carbon Dioxide Creatinine Glucose 02/08/22 02/08/22 02/09/22 04:23 09:20 04:50 WBC RBC Hgb 10.4 L Hct 33.7 L MCV 73 L MCH 22 L MCHC 31 L RDW 17.5 H Lymph % (Auto) [place] % (Auto) Lymph # (Auto) Seg Neutrophils % ABG pH 7.333 L ABG pO2 114.7 H ABG Hemoglobin 11.1 L Oxyhemoglobin Potassium Chloride 109.3 H Carbon Dioxide Creatinine 0.6 L Glucose 02/09/22 02/10/22 04:50 04:50 WBC 4.4 L RBC Hgb 10.1 L Hct 32.9 L MCV 73 L MCH 22 L MCHC 31 L RDW 17.2 H Lymph % (Auto) [place] % (Auto) Lymph # (Auto) Seg Neutrophils % ABG pH ABG pO2 ABG Hemoglobin Oxyhemoglobin Potassium Chloride Carbon Dioxide Creatinine Glucose 107 H Chest x-ray: image reviewed Allied health notes reviewed: RT
--- NOTE | 2022-02-10 11:36 | Progress Note ---
<MARNI RICHEY - Last Filed: 02/10/22 17:46> Assessment and Plan Assessment and plan: This is a 36-year-old male with known past medical history of obesity and myasthenia gravis admitted for myasthenia gravis crisis. Hospital Course to Date: 02/07: S/p X1 dose of IV IG overnight, patient reported feeling much better and stronger this am, moving all extremities. Plan to wean off Bipap this am. Okay to start a diet if patient pass bedside swallow. D/W CCM plan for CT chest w con tomorrow to r/o thymoma. Neurology consulted. 02/08: S/p emergent intubattion by anethesia yesterday. Now intubated and sedated, RASS -2. Neurology recommendations noted. Resumed home meds. Will wean off sedation this am for possible SAT/SBT. CT chest also noted with no evidence of thymoma. Continue IVIG. Attending received call back from [facility]. Transfer was declined, no available ICU beds at this time. They recommend continuing IVIG and possible plasma exchange. Awaiting on Neurology final recommendations. 02/09: S/p Extubation this am. Desated to 85% on 3L NC, SPO2 improved to 88% on 8L NC. This am CXR noted, worsen opacity of the left side. CCM at the bedside, X1 dose of IV Lasix ordered and place patient on Bipap. Low Threshold for reintubation. Plan of care and the high probability for reintubation was discussed with patient at the bedside. Patient verbalized understanding and agree with current care plan. Continue IVIG, Awaiting on Neurology final recommendations. 02/10: Tolerated Bipap, now on 2L NC this am, SPO2 at 100%. No s/s of any acute respiratory distress noted. This am CXR also noted with significant improvement. Continue IVIGm and Bipap at night. Incentive Spirometer also ordered. advance diet as tolerated. PT/OT/Speech consulted. 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 He was passing through [place] when symptoms started - S/p emergent intubation by anethesia - CT chest w con showed no evidence of thymoma - Neurology consulted, appreciated recommendations - Resumed home meds: Cellcept, Mycophenolate, and Prednisone - Continue IV IG X5days - Will consider plasma exchange if no improvement by hospital day 5 - CCM also on consult, appreciated recommendations - Patient reported that his neurologist in [place] is Dr. Billie Delgado - Transfer to [facility] was declined, no available ICU beds at this time. They recommend continuing IVIG and possible plasma exchange #Acute Hypoxemic Respiratory Failure #Probable ANTON- On CPAP at home #Former Smoker - most likely related to MG crisis - S/p emergent intubation by anesthesia on 02/07 for airway protection - 02/09 s/p extubation, Low SPO2 currently 88% on 8L NC - s/p X1 dose of IV Lasix ordered and place patient on Bipap - CCM consulted, appreciate recommendations - This am CXR also noted with significant improvement - Continue IVIG, IS ordered - Continue Bipap at night - Aspiration precaution HOB above 30 - Continue O2 supplementation and wean as tolerated - Continue SPO2 monitoring for SPO2 goal above 92% #Hepatic Hemangiomas - noted fro CT chest w/o con - Stable, LFTs within normal range - Outpatient follow up for US and further workups #Obesity - Balanced diet, increase physical activity discharge, outpatient pulmonary follow-up for sleep study, weight reduction. #GI/DVT Prophylaxis - PPI- Pepcid - Lovenox SubQ - SCD to bilateral lower extremities while in bed #Advance Care Planning - Disease education data, care plan, diagnoses, and prognosis were discussed with patient at the bedside. Patient is a Full code. Patient acknowledged understanding and agreement with current care plan. - Patient reported in case of an emergency and he is unable to make his own decision, his NOK is his aunt who resides in [place], [place]. Heike Araujo, phone# The high probability of a clinically significant, sudden or life threatening deterioration of the [multiple] system(s) required my full and direct attention, intervention and personal management. The aggregate critical care time was [60] minutes. This time is in addition to time spent performing reported procedures but includes the following: [x] Data Review and interpretation [x] Patient assessment and monitoring of vital signs [x] Documentation [x] Medication orders and management Disposition Plan: ICU Total Time Spent with Patient (Minutes): 60 History Interval history: Patient seen and examined at the bedside. Patient remains stable, now on 2L NC, Tolerated Bipap overnight. VSS. ADAL overnight Hospitalist Physical - Constitutional Vitals: Temp Pulse Resp BP Pulse Ox 97 F L 48 L 18 107/67 100 02/10/22 11:15 02/10/22 11:15 02/10/22 11:01 02/10/22 11:01 02/10/22 11:01 General appearance: Present: no acute distress, well-nourished, obese - EENT Eyes: Present: PERRL (Left eye ptosis), EOM intact ENT: other (KASAAN, Earing aids present) - Neck Neck: Present: normal ROM - Respiratory Respiratory effort: normal Respiratory: bilateral: diminished - Cardiovascular Rhythm: regular Heart Sounds: Present: S1 & S2 - Extremities Extremities: no ischemia, pulses intact, pulses symmetrical Extremity abnormal: edema - Peripheral Assessment Generalized Edema Type: Non-pitting Edema Degree: 1+ Capillary Refill: < 3 seconds Skin Temperature: Warm Peripheral Pulses: within normal limits - Abdominal General gastrointestinal: soft, non-distended, normal bowel sounds - Integumentary Integumentary: Present: clear, warm, dry - Psychiatric Psychiatric: appropriate mood/affect, cooperative - Neurologic Neurologic: moves all extremities (Generalized weakness) - Allied Health Allied health notes reviewed: nursing, case management Results - Labs CBC & Chem 7: 02/10/22 04:50 02/10/22 04:50 Labs: Laboratory Last Values WBC 4.4 K/mm3 (4.5-11.0) L 02/10/22 04:50 RBC 4.53 M/mm3 (3.65-5.03) 02/10/22 04:50 Hgb 10.1 gm/dl (11.8-15.2) L 02/10/22 04:50 Hct 32.9 % (35.5-45.6) L 02/10/22 04:50 MCV 73 fl (84-94) L 02/10/22 04:50 MCH 22 pg (28-32) L 02/10/22 04:50 MCHC 31 % (32-34) L 02/10/22 04:50 RDW 17.2 % (13.2-15.2) H 02/10/22 04:50 Plt Count 205 K/mm3 (140-440) 02/10/22 04:50 Lymph % (Auto) 29.4 % (13.4-35.0) 02/07/22 04:15 [place] % (Auto) 9.1 % (0.0-7.3) H 02/07/22 04:15 Eos % (Auto) 0.4 % (0.0-4.3) 02/07/22 04:15 Baso % (Auto) 0.7 % (0.0-1.8) 02/07/22 04:15 Lymph # (Auto) 1.7 K/mm3 (1.2-5.4) 02/07/22 04:15 [place] # (Auto) 0.5 K/mm3 (0.0-0.8) 02/07/22 04:15 Eos # (Auto) 0.0 K/mm3 (0.0-0.4) 02/07/22 04:15 Baso # (Auto) 0.0 K/mm3 (0.0-0.1) 02/07/22 04:15 Seg Neutrophils % 60.4 % (40.0-70.0) 02/07/22 04:15 Seg Neutrophils # 3.6 K/mm3 (1.8-7.7) 02/07/22 04:15 ABG pH 7.333 pH Units (7.350-7.450) L 02/08/22 09:20 ABG pCO2 48.2 mm Hg 02/08/22 09:20 ABG pO2 114.7 mm Hg (80.0-90.0) H 02/08/22 09:20 ABG HCO3 25.0 mmol/L (20.0-26.0) 02/08/22 09:20 ABG O2 Saturation 97.9 % (95.0-99.0) 02/08/22 09:20 ABG O2 Content 15.1 (0.0-44) 02/08/22 09:20 ABG Base Excess -1.1 mmol/L (-2.0-3.0) 02/08/22 09:20 ABG Hemoglobin 11.1 gm/dl (14.0-18.0) L 02/08/22 09:20 ABG Carboxyhemoglobin 1.4 % (0.0-5.0) 02/08/22 09:20 ABG Methemoglobin 0.5 % (0.0-1.5) 02/08/22 09:20 Oxyhemoglobin 96.1 % (95.0-99.0) 02/08/22 09:20 FiO2 35 % 02/08/22 09:20 Sodium 141 mmol/L (137-145) 02/10/22 04:50 Potassium 3.9 mmol/L (3.6-5.0) 02/10/22 04:50 Chloride 102.0 mmol/L (98-107) 02/10/22 04:50 Carbon Dioxide 30 mmol/L (22-30) 02/10/22 04:50 Anion Gap 13 mmol/L 02/10/22 04:50 BUN 12 mg/dL (9-20) 02/10/22 04:50 Creatinine 0.9 mg/dL (0.8-1.3) 02/10/22 04:50 Estimated GFR > 60 ml/min 02/10/22 04:50 BUN/Creatinine Ratio 13 % 02/10/22 04:50 Glucose 90 mg/dL (75-100) 02/10/22 04:50 Calcium 9.2 mg/dL (8.4-10.2) 02/10/22 04:50 Total Bilirubin 0.40 mg/dL (0.1-1.2) 02/07/22 04:15 AST 9 units/L (5-40) 02/07/22 04:15 ALT 11 units/L (7-56) 02/07/22 04:15 Alkaline Phosphatase 75 units/L (35-129) 02/07/22 04:15 Total Protein 7.0 g/dL (6.3-8.2) 02/07/22 04:15 Albumin 4.0 g/dL (3.9-5) 02/07/22 04:15 Albumin/Globulin Ratio 1.3 % 02/07/22 04:15 Microbiology: Microbiology 02/07/22 12:30 Tracheal Aspirate Sputum Culture - Final [place]/IV: Voiding Method Urinal Active Medications - Current Medications Current Medications: Generic Name Dose Route Start Last Admin Trade Name Freq PRN Reason Stop Dose Admin Acetaminophen 650 mg 02/06/22 15:00 Acetaminophen 325 Mg Tab PO Q6H PRN Pain MILD(1-3)/Fever >100.5/WEINBERG Albuterol 2.5 mg 02/06/22 15:00 Albuterol 2.5 Mg/3 Ml Nebu IH Q3HRT PRN Shortness Of Breath Enoxaparin Sodium 40 mg 02/06/22 22:00 02/09/22 21:46 Enoxaparin 40 Mg/0.4 Ml Inj SUB-Q 40 mg QDAY@2200 NESTOR Administration Protocol Famotidine 20 mg 02/08/22 10:00 02/10/22 09:42 Famotidine 20 Mg Tab FEEDTUBE 20 mg BID NESTOR Administration Fentanyl 50 mcg 02/07/22 10:55 02/07/22 11:12 Fentanyl 100 Mcg/2 Ml Inj IV 50 mcg Q10MIN PRN Administration ANALGESIA Hydrophilic Ointment 1 applic 02/07/22 10:55 Lip Therapy Vaseline TP Q2HR PRN Dry Lips IMMUNE GLOBUL G/GLY/IGA AVG 46 351 mls @ 100 mls/hr 02/06/22 19:00 02/10/22 01:25 20 gm/ IMMUNE GLOBUL G/GLY/ IV 02/10/22 22:31 Infused IGA AVG 46 10 gm/ IMMUNE Q24H NESTOR Infusion GLOBUL G/GLY/IGA AVG 46 5 gm/ Miscellaneous Information Fentanyl Citrate 2,000 mcg in 100 mls @ 5.11 mls/hr 02/07/22 11:00 02/08/22 19:03 Fentanyl Drip Premix IV 0 mcg/kg/hr TITR NESTOR 0 mls/hr Titration Protocol 1 MCG/KG/HR Morphine Sulfate 1 mg 02/06/22 15:00 Morphine 2 Mg/1 Ml Inj IV Q6H PRN Pain , Severe (7-10) Multi-Ingred Cream/Lotion/Oil/Oint 1 applic 02/07/22 10:55 Mineral Oil/Petrolatum, White Ophth Oint 3.5 Gm OU Q4HR PRN Dry Eye(s) Mycophenolate Mofetil 1,000 mg 02/09/22 10:00 02/10/22 09:44 Mycophenolate 1000 Mg/5 Ml Oral Liqd FEEDTUBE 1,000 mg BID NESTOR Administration Ondansetron HCl 4 mg 02/08/22 17:00 02/09/22 07:14 Ondansetron 4 Mg/2 Ml Inj IV 4 mg Q8H PRN Administration Nausea And Vomiting Oxycodone/Acetaminophen 1 tab 02/06/22 15:00 Oxycodone /Acetaminophen 5-325mg Tab PO Q16H PRN Pain, Moderate (4-6) Prednisone 10 mg 02/08/22 10:00 02/10/22 09:42 Prednisone 10 Mg Tab PO 10 mg QDAY NESTOR Administration Pyridostigmine [place] 180 mg 02/08/22 10:00 02/10/22 09:42 Pyridostigmine [place] 60 Mg Tab PO 180 mg DAILY NESTOR Administration Senna/Docusate Sodium 1 tab 02/07/22 22:00 02/10/22 09:42 Sennosides/Docusate Sodium 8.6/50 Mg Tab FEEDTUBE 1 tab BID NESTOR Administration Sodium Chloride 10 ml 02/06/22 22:00 02/10/22 09:44 Sodium Chloride 0.9% 10 Ml Flush Syringe IV 10 ml BID NESTOR Administration Sodium Chloride 10 ml 02/06/22 13:59 Sodium Chloride 0.9% 10 Ml Flush Syringe IV PRN PRN LINE FLUSH Nutrition/Malnutrition Assess - Dietary Evaluation Nutrition/Malnutrition Findings: Nutrition Notes Start: 02/07/22 13:09 Freq: Status: Active Protocol: Document 02/09/22 11:58 [facility] (Rec: 02/09/22 12:06 [facility] [id number]) Nutrition Notes Initial or Follow up Reassessment Current Diagnosis Respiratory Failure Other Pertinent Diagnosis Myasthenia gravis crisis Current Diet TF - Jevity 1.2 at 70ml/hr Labs/Tests Reviewed Pertinent Medications Lasix, 15mmol KPhos x 1 dose, Prednisone Height 5 ft 10 in Weight 102.194 kg [place] Body Weight (kg) 75.45 BMI 32.3 Weight Status Obese Subjective/Other Information Pt remains on vent support, however, may be extubated this am; TF on hold in anticipation of extubation. Burn Absent Trauma Absent Minimum of two criteria No #1 Nutrition Diagnosis Inadequate oral intake As Evidenced by Signs and Symptoms pt remains NPO Diagnosis Progress(for reassessment Continues documentation) Is patient on ventilator? Yes Is Patient Ambulatory and/or Out of Bed No REE-([facility]-confined to bed) 2352.060 Kcal/Kg value to use for calculation 18 Approximate Energy Requirements Using 1839 kcal/Kg Calculation Used for Recommendations Kcal/kg Additional Notes Pro needs 2g/kg IBW: 151g/day Fluid needs 1ml/kcal Nutrition Intervention Change Diet Order: Advance diet when medically feasible Nutrition Support: Resume TF if necessary; change TF formula to Vital AF 1.2 at 65ml/hr. Goal #1 Either advance diet or resume TF to meet nutrient needs Follow-Up By: 02/12/22 Additional Comments F/U: diet advancement vs TF restart, extubation <LELO ODONNELL - Last Filed: 02/10/22 20:07> Assessment and Plan Assessment and plan: I saw and evaluated the patient. I agree with the findings and the plan of care as documented in the Nurse Practitioner's~note, with the following corrections and additions. Hospitalist Physical - Constitutional Vitals: Temp Pulse Resp BP Pulse Ox 97.5 F L 54 L 18 110/71 96 02/10/22 16:00 02/10/22 19:01 02/10/22 19:01 02/10/22 19:01 02/10/22 19:01 Results - Labs CBC & Chem 7: 02/10/22 04:50 02/10/22 04:50 Labs: Laboratory Last Values WBC 4.4 K/mm3 (4.5-11.0) L 02/10/22 04:50 RBC 4.53 M/mm3 (3.65-5.03) 02/10/22 04:50 Hgb 10.1 gm/dl (11.8-15.2) L 02/10/22 04:50 Hct 32.9 % (35.5-45.6) L 02/10/22 04:50 MCV 73 fl (84-94) L 02/10/22 04:50 MCH 22 pg (28-32) L 02/10/22 04:50 MCHC 31 % (32-34) L 02/10/22 04:50 RDW 17.2 % (13.2-15.2) H 02/10/22 04:50 Plt Count 205 K/mm3 (140-440) 02/10/22 04:50 Lymph % (Auto) 29.4 % (13.4-35.0) 02/07/22 04:15 [place] % (Auto) 9.1 % (0.0-7.3) H 02/07/22 04:15 Eos % (Auto) 0.4 % (0.0-4.3) 02/07/22 04:15 Baso % (Auto) 0.7 % (0.0-1.8) 02/07/22 04:15 Lymph # (Auto) 1.7 K/mm3 (1.2-5.4) 02/07/22 04:15 [place] # (Auto) 0.5 K/mm3 (0.0-0.8) 02/07/22 04:15 Eos # (Auto) 0.0 K/mm3 (0.0-0.4) 02/07/22 04:15 Baso # (Auto) 0.0 K/mm3 (0.0-0.1) 02/07/22 04:15 Seg Neutrophils % 60.4 % (40.0-70.0) 02/07/22 04:15 Seg Neutrophils # 3.6 K/mm3 (1.8-7.7) 02/07/22 04:15 ABG pH 7.333 pH Units (7.350-7.450) L 02/08/22 09:20 ABG pCO2 48.2 mm Hg 02/08/22 09:20 ABG pO2 114.7 mm Hg (80.0-90.0) H 02/08/22 09:20 ABG HCO3 25.0 mmol/L (20.0-26.0) 02/08/22 09:20 ABG O2 Saturation 97.9 % (95.0-99.0) 02/08/22 09:20 ABG O2 Content 15.1 (0.0-44) 02/08/22 09:20 ABG Base Excess -1.1 mmol/L (-2.0-3.0) 02/08/22 09:20 ABG Hemoglobin 11.1 gm/dl (14.0-18.0) L 02/08/22 09:20 ABG Carboxyhemoglobin 1.4 % (0.0-5.0) 02/08/22 09:20 ABG Methemoglobin 0.5 % (0.0-1.5) 02/08/22 09:20 Oxyhemoglobin 96.1 % (95.0-99.0) 02/08/22 09:20 FiO2 35 % 02/08/22 09:20 Sodium 141 mmol/L (137-145) 02/10/22 04:50 Potassium 3.9 mmol/L (3.6-5.0) 02/10/22 04:50 Chloride 102.0 mmol/L (98-107) 02/10/22 04:50 Carbon Dioxide 30 mmol/L (22-30) 02/10/22 04:50 Anion Gap 13 mmol/L 02/10/22 04:50 BUN 12 mg/dL (9-20) 02/10/22 04:50 Creatinine 0.9 mg/dL (0.8-1.3) 02/10/22 04:50 Estimated GFR > 60 ml/min 02/10/22 04:50 BUN/Creatinine Ratio 13 % 02/10/22 04:50 Glucose 90 mg/dL (75-100) 02/10/22 04:50 Calcium 9.2 mg/dL (8.4-10.2) 02/10/22 04:50 Total Bilirubin 0.40 mg/dL (0.1-1.2) 02/07/22 04:15 AST 9 units/L (5-40) 02/07/22 04:15 ALT 11 units/L (7-56) 02/07/22 04:15 Alkaline Phosphatase 75 units/L (35-129) 02/07/22 04:15 Total Protein 7.0 g/dL (6.3-8.2) 02/07/22 04:15 Albumin 4.0 g/dL (3.9-5) 02/07/22 04:15 Albumin/Globulin Ratio 1.3 % 02/07/22 04:15 [place]/IV: Voiding Method Urinal Active Medications - Current Medications Current Medications: Generic Name Dose Route Start Last Admin Trade Name Freq PRN Reason Stop Dose Admin Acetaminophen 650 mg 02/06/22 15:00 02/10/22 18:11 Acetaminophen 325 Mg Tab PO 650 mg Q6H PRN Administration Pain MILD(1-3)/Fever >100.5/[place]G Albuterol 2.5 mg 02/06/22 15:00 Albuterol 2.5 Mg/3 Ml Nebu IH Q3HRT PRN Shortness Of Breath Enoxaparin Sodium 40 mg 02/06/22 22:00 02/09/22 21:46 Enoxaparin 40 Mg/0.4 Ml Inj SUB-Q 40 mg QDAY@2200 [facility] Administration Protocol Famotidine 20 mg 02/08/22 10:00 02/10/22 09:42 Famotidine 20 Mg Tab FEEDTUBE 20 mg BID NESTOR Administration Fentanyl 50 mcg 02/07/22 10:55 02/07/22 11:12 Fentanyl 100 Mcg/2 Ml Inj IV 50 mcg Q10MIN PRN Administration ANALGESIA Hydrophilic Ointment 1 applic 02/07/22 10:55 Lip Therapy Vaseline TP Q2HR PRN Dry Lips IMMUNE GLOBUL G/GLY/IGA AVG 46 351 mls @ 100 mls/hr 02/06/22 19:00 02/10/22 01:25 20 gm/ IMMUNE GLOBUL G/GLY/ IV 02/10/22 22:31 Infused IGA AVG 46 10 gm/ IMMUNE Q24H NESTOR Infusion GLOBUL G/GLY/IGA AVG 46 5 gm/ Miscellaneous Information Fentanyl Citrate 2,000 mcg in 100 mls @ 5.11 mls/hr 02/07/22 11:00 02/08/22 19:03 Fentanyl Drip Premix IV 0 mcg/kg/hr TITR NESTOR 0 mls/hr Titration Protocol 1 MCG/KG/HR Morphine Sulfate 1 mg 02/06/22 15:00 Morphine 2 Mg/1 Ml Inj IV Q6H PRN Pain , Severe (7-10) Multi-Ingred Cream/Lotion/Oil/Oint 1 applic 02/07/22 10:55 Mineral Oil/Petrolatum, White Ophth Oint 3.5 Gm OU Q4HR PRN Dry Eye(s) Mycophenolate Mofetil 1,000 mg 02/09/22 10:00 02/10/22 09:44 Mycophenolate 1000 Mg/5 Ml Oral Liqd FEEDTUBE 1,000 mg BID NESTOR Administration Ondansetron HCl 4 mg 02/08/22 17:00 02/10/22 18:25 Ondansetron 4 Mg/2 Ml Inj IV 4 mg Q8H PRN Administration Nausea And Vomiting Oxycodone/Acetaminophen 1 tab 02/06/22 15:00 Oxycodone /Acetaminophen 5-325mg Tab PO Q16H PRN Pain, Moderate (4-6) Prednisone 10 mg 02/08/22 10:00 02/10/22 09:42 Prednisone 10 Mg Tab PO 10 mg QDAY NESTOR Administration Pyridostigmine [place] 180 mg 02/08/22 10:00 02/10/22 09:42 Pyridostigmine [place] 60 Mg Tab PO 180 mg DAILY NESTOR Administration Senna/Docusate Sodium 1 tab 02/07/22 22:00 02/10/22 09:42 Sennosides/Docusate Sodium 8.6/50 Mg Tab FEEDTUBE 1 tab BID NESTOR Administration Sodium Chloride 10 ml 02/06/22 22:00 02/10/22 09:44 Sodium Chloride 0.9% 10 Ml Flush Syringe IV 10 ml BID NESTOR Administration Sodium Chloride 10 ml 02/06/22 13:59 Sodium Chloride 0.9% 10 Ml Flush Syringe IV PRN PRN LINE FLUSH Nutrition/Malnutrition Assess - Dietary Evaluation Nutrition/Malnutrition Findings: Nutrition Notes Start: 02/07/22 13:09 Freq: Status: Active Protocol: Document 02/09/22 11:58 [facility] (Rec: 02/09/22 12:06 [facility] [id number]) Nutrition Notes Initial or Follow up Reassessment Current Diagnosis Respiratory Failure Other Pertinent Diagnosis Myasthenia gravis crisis Current Diet TF - Jevity 1.2 at 70ml/hr Labs/Tests Reviewed Pertinent Medications Lasix, 15mmol KPhos x 1 dose, Prednisone Height 5 ft 10 in Weight 102.194 kg [place] Body Weight (kg) 75.45 BMI 32.3 Weight Status Obese Subjective/Other Information Pt remains on vent support, however, may be extubated this am; TF on hold in anticipation of extubation. Burn Absent Trauma Absent Minimum of two criteria No #1 Nutrition Diagnosis Inadequate oral intake As Evidenced by Signs and Symptoms pt remains NPO Diagnosis Progress(for reassessment Continues documentation) Is patient on ventilator? Yes Is Patient Ambulatory and/or Out of Bed No REE-([facility]-confined to bed) 2352.060 Kcal/Kg value to use for calculation 18 Approximate Energy Requirements Using 1839 kcal/Kg Calculation Used for Recommendations Kcal/kg Additional Notes Pro needs 2g/kg IBW: 151g/day Fluid needs 1ml/kcal Nutrition Intervention Change Diet Order: Advance diet when medically feasible Nutrition Support: Resume TF if necessary; change TF formula to Vital AF 1.2 at 65ml/hr. Goal #1 Either advance diet or resume TF to meet nutrient needs Follow-Up By: 02/12/22 Additional Comments F/U: diet advancement vs TF restart, extubation
[2022-02-10] MEDS: ACETAMINOPHEN 325 MG TAB PO PRN (18:11)
[2022-02-10] MEDS: ONDANSETRON 4 MG/2 ML INJ IV PRN (18:25)
[2022-02-10] MEDS: IMMUNE GLOBUL IV SCH (20:04)
[2022-02-10] MEDS: GLY IV SCH (20:04)
[2022-02-10] MEDS: IGA AVG IV SCH (20:04)
[2022-02-10] MEDS: [UNRECOGNIZED DRUG - OTHER] IV SCH (20:04)
[2022-02-10] MEDS: ENOXAPARIN 40 MG/0.4 ML INJ SUB-Q SCH (21:17)
[2022-02-11 05:02] LABS: Hematocrit 33.6 % (35.5-45.6); Hemoglobin 10.4 gm/dl (11.8-15.2); Mean Corpuscular HGB Conc 31 % (32-34); Mean Corpuscular Volume 73 fl (84-94); Platelet Count 177 K/mm3 (140-440)
[2022-02-11 05:18] LABS: Blood Urea Nitrogen 10 mg/dL (9-20); Hemolysis Index 6
[2022-02-11 05:35] LABS: BUN/Creatinine Ratio 14
[2022-02-11] MEDS: PYRIDOSTIGMINE BROMIDE 60 MG TAB PO SCH (10:00)
[2022-02-11] MEDS: FAMOTIDINE 20 MG TAB FEEDTUBE SCH ×2 (10:01→21:01)
[2022-02-11] MEDS: predniSONE 10 MG TAB PO SCH (10:01)
[2022-02-11] MEDS: SENNOSIDES/DOCUSATE SODIUM 8.6/50 MG TAB FEEDTUBE SCH ×2 (10:01→21:01)
[2022-02-11] MEDS: MYCOPHENOLATE FEEDTUBE SCH ×2 (10:01→21:01)
--- NOTE | 2022-02-11 10:30 | Progress Note ---
<MARNI RICHEY - Last Filed: 02/11/22 16:57> Assessment and Plan Assessment and plan: This is a 36-year-old male with known past medical history of obesity and myasthenia gravis admitted for myasthenia gravis crisis. Hospital Course to Date: 02/07: S/p X1 dose of IV IG overnight, patient reported feeling much better and stronger this am, moving all extremities. Plan to wean off Bipap this am. Okay to start a diet if patient pass bedside swallow. D/W CCM plan for CT chest w con tomorrow to r/o thymoma. Neurology consulted. 02/08: S/p emergent intubattion by cipriano yesterday. Now intubated and sedated, RASS -2. Neurology recommendations noted. Resumed home meds. Will wean off sedation this am for possible SAT/SBT. CT chest also noted with no evidence of thymoma. Continue IVIG. Attending received call back from [facility]. Transfer was declined, no available ICU beds at this time. They recommend continuing IVIG and possible plasma exchange. Awaiting on Neurology final recommendations. 02/09: S/p Extubation this am. Desated to 85% on 3L NC, SPO2 improved to 88% on 8L NC. This am CXR noted, worsen opacity of the left side. CCM at the bedside, X1 dose of IV Lasix ordered and place patient on Bipap. Low Threshold for reintubation. Plan of care and the high probability for reintubation was discussed with patient at the bedside. Patient verbalized understanding and agree with current care plan. Continue IVIG, Awaiting on Neurology final recommendations. 02/10: Tolerated Bipap, now on 2L NC this am, SPO2 at 100%. No s/s of any acute respiratory distress noted. This am CXR also noted with significant improvement. Continue IVIGm and Bipap at night. Incentive Spirometer also ordered. advance diet as tolerated. PT/OT/Speech consulted. 02/11: Completed x5days of IVIG overnight. Stable on RA, still complaining of generalized weakness, other stable. Diet advanced to solid this am, patient is tolerating it. Continue IS and Bipap at night. Encourage mobility as tolerated, PT/OT/Speech consult pending. 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 He was passing through [place] when symptoms started - S/p emergent intubation by anethesia - CT chest w con showed no evidence of thymoma - Neurology consulted, appreciated recommendations - Resumed home meds: Cellcept, Mycophenolate, and Prednisone - Continue IV IG X5days - Will consider plasma exchange if no improvement by hospital day 5 - CCM also on consult, appreciated recommendations - Patient reported that his neurologist in [place] is Dr. Billie Delgado - Transfer to [facility] was declined, no available ICU beds at this time. They recommend continuing IVIG and possible plasma exchange #Acute Hypoxemic Respiratory Failure #Probable ANTON- On CPAP at home #Former Smoker - most likely related to MG crisis - S/p emergent intubation by anesthesia on 02/07 for airway protection - 02/09 s/p extubation - Stable on RA this am - CCM consulted, appreciate recommendations - Continue IVIG, IS ordered - Continue Bipap at night - Aspiration precaution HOB above 30 - Continue O2 supplementation and wean as tolerated - Continue SPO2 monitoring for SPO2 goal above 92% #Hepatic Hemangiomas - noted fro CT chest w/o con - Stable, LFTs within normal range - Outpatient follow up for US and further workups #Obesity - Balanced diet, increase physical activity discharge, outpatient pulmonary follow-up for sleep study, weight reduction. #GI/DVT Prophylaxis - PPI- Pepcid - Lovenox SubQ - SCD to bilateral lower extremities while in bed #Advance Care Planning - Disease education data, care plan, diagnoses, and prognosis were discussed with patient at the bedside. Patient is a Full code. Patient acknowledged understanding and agreement with current care plan. - Patient reported in case of an emergency and he is unable to make his own decision, his NOK is his aunt who resides in [place], [place]. Heike Araujo, phone# The high probability of a clinically significant, sudden or life threatening deterioration of the [multiple] system(s) required my full and direct attention, intervention and personal management. The aggregate critical care time was [30] minutes. This time is in addition to time spent performing reported procedures but includes the following: [x] Data Review and interpretation [x] Patient assessment and monitoring of vital signs [x] Documentation [x] Medication orders and management Disposition Plan: IMCU Total Time Spent with Patient (Minutes): 30 History Interval history: Patient seen and examined at the bedside. Patient remains stable, on RA, VSS. Still complaining of generalized weakness, but denied any pain nor any discomfort. ADAL overnight Hospitalist Physical - Constitutional Vitals: Temp Pulse Resp BP Pulse Ox 97.2 F L 68 21 116/59 99 02/11/22 08:00 02/11/22 10:10 02/11/22 10:10 02/11/22 09:00 02/11/22 10:10 General appearance: Present: no acute distress, well-nourished, obese - EENT Eyes: Present: PERRL (Rt. eye Ptosis) ENT: hearing intact, clear oral mucosa - Neck Neck: Present: normal ROM - Respiratory Respiratory effort: normal Respiratory: bilateral: diminished - Cardiovascular Rhythm: regular Heart Sounds: Present: S1 & S2 - Extremities Extremities: no ischemia, pulses intact, pulses symmetrical Extremity abnormal: edema - Peripheral Assessment Generalized Edema Type: Non-pitting Edema Degree: 1+ Capillary Refill: < 3 seconds Skin Temperature: Warm Peripheral Pulses: within normal limits - Abdominal General gastrointestinal: soft, non-distended, normal bowel sounds - Integumentary Integumentary: Present: clear, warm, dry - Psychiatric Psychiatric: appropriate mood/affect, cooperative - Neurologic Neurologic: moves all extremities (generalized weakness) - Allied Health Allied health notes reviewed: nursing, case management Results - Labs CBC & Chem 7: 02/11/22 04:38 02/11/22 04:38 Labs: Laboratory Last Values WBC 3.3 K/mm3 (4.5-11.0) L 02/11/22 04:38 RBC 4.60 M/mm3 (3.65-5.03) 02/11/22 04:38 Hgb 10.4 gm/dl (11.8-15.2) L 02/11/22 04:38 Hct 33.6 % (35.5-45.6) L 02/11/22 04:38 MCV 73 fl (84-94) L 02/11/22 04:38 MCH 23 pg (28-32) L 02/11/22 04:38 MCHC 31 % (32-34) L 02/11/22 04:38 RDW 17.0 % (13.2-15.2) H 02/11/22 04:38 Plt Count 177 K/mm3 (140-440) 02/11/22 04:38 Lymph % (Auto) 29.4 % (13.4-35.0) 02/07/22 04:15 [place] % (Auto) 9.1 % (0.0-7.3) H 02/07/22 04:15 Eos % (Auto) 0.4 % (0.0-4.3) 02/07/22 04:15 Baso % (Auto) 0.7 % (0.0-1.8) 02/07/22 04:15 Lymph # (Auto) 1.7 K/mm3 (1.2-5.4) 02/07/22 04:15 [place] # (Auto) 0.5 K/mm3 (0.0-0.8) 02/07/22 04:15 Eos # (Auto) 0.0 K/mm3 (0.0-0.4) 02/07/22 04:15 Baso # (Auto) 0.0 K/mm3 (0.0-0.1) 02/07/22 04:15 Seg Neutrophils % 60.4 % (40.0-70.0) 02/07/22 04:15 Seg Neutrophils # 3.6 K/mm3 (1.8-7.7) 02/07/22 04:15 ABG pH 7.333 pH Units (7.350-7.450) L 02/08/22 09:20 ABG pCO2 48.2 mm Hg 02/08/22 09:20 ABG pO2 114.7 mm Hg (80.0-90.0) H 02/08/22 09:20 ABG HCO3 25.0 mmol/L (20.0-26.0) 02/08/22 09:20 ABG O2 Saturation 97.9 % (95.0-99.0) 02/08/22 09:20 ABG O2 Content 15.1 (0.0-44) 02/08/22 09:20 ABG Base Excess -1.1 mmol/L (-2.0-3.0) 02/08/22 09:20 ABG Hemoglobin 11.1 gm/dl (14.0-18.0) L 02/08/22 09:20 ABG Carboxyhemoglobin 1.4 % (0.0-5.0) 02/08/22 09:20 ABG Methemoglobin 0.5 % (0.0-1.5) 02/08/22 09:20 Oxyhemoglobin 96.1 % (95.0-99.0) 02/08/22 09:20 FiO2 35 % 02/08/22 09:20 Sodium 138 mmol/L (137-145) 02/11/22 04:38 Potassium 4.1 mmol/L (3.6-5.0) 02/11/22 04:38 Chloride 103.2 mmol/L (98-107) 02/11/22 04:38 Carbon Dioxide 30 mmol/L (22-30) 02/11/22 04:38 Anion Gap 9 mmol/L 02/11/22 04:38 BUN 10 mg/dL (9-20) 02/11/22 04:38 Creatinine 0.7 mg/dL (0.8-1.3) L 02/11/22 04:38 Estimated GFR > 60 ml/min 02/11/22 04:38 BUN/Creatinine Ratio 14 % 02/11/22 04:38 Glucose 101 mg/dL (75-100) H 02/11/22 04:38 Calcium 9.0 mg/dL (8.4-10.2) 02/11/22 04:38 Total Bilirubin 0.40 mg/dL (0.1-1.2) 02/07/22 04:15 AST 9 units/L (5-40) 02/07/22 04:15 ALT 11 units/L (7-56) 02/07/22 04:15 Alkaline Phosphatase 75 units/L (35-129) 02/07/22 04:15 Total Protein 7.0 g/dL (6.3-8.2) 02/07/22 04:15 Albumin 4.0 g/dL (3.9-5) 02/07/22 04:15 Albumin/Globulin Ratio 1.3 % 02/07/22 04:15 Roberson/IV: Voiding Method Urinal Active Medications - Current Medications Current Medications: Generic Name Dose Route Start Last Admin Trade Name Freq PRN Reason Stop Dose Admin Acetaminophen 650 mg 02/06/22 15:00 02/10/22 18:11 Acetaminophen 325 Mg Tab PO 650 mg Q6H PRN Administration Pain MILD(1-3)/Fever >100.5/WEINBERG Albuterol 2.5 mg 02/06/22 15:00 Albuterol 2.5 Mg/3 Ml Nebu IH Q3HRT PRN Shortness Of Breath Enoxaparin Sodium 40 mg 02/06/22 22:00 02/10/22 21:17 Enoxaparin 40 Mg/0.4 Ml Inj SUB-Q 40 mg QDAY@2200 NESTOR Administration Protocol Famotidine 20 mg 02/08/22 10:00 02/11/22 10:01 Famotidine 20 Mg Tab FEEDTUBE 20 mg BID NESTOR Administration Hydrophilic Ointment 1 applic 02/07/22 10:55 Lip Therapy Vaseline TP Q2HR PRN Dry Lips Multi-Ingred Cream/Lotion/Oil/Oint 1 applic 02/07/22 10:55 Mineral Oil/Petrolatum, White Ophth Oint 3.5 Gm OU Q4HR PRN Dry Eye(s) Mycophenolate Mofetil 1,000 mg 02/09/22 10:00 02/11/22 10:01 Mycophenolate 1000 Mg/5 Ml Oral Liqd FEEDTUBE 1,000 mg BID NESTOR Administration Ondansetron HCl 4 mg 02/08/22 17:00 02/10/22 18:25 Ondansetron 4 Mg/2 Ml Inj IV 4 mg Q8H PRN Administration Nausea And Vomiting Oxycodone/Acetaminophen 1 tab 02/06/22 15:00 Oxycodone /Acetaminophen 5-325mg Tab PO Q16H PRN Pain, Moderate (4-6) Prednisone 10 mg 02/08/22 10:00 02/11/22 10:01 Prednisone 10 Mg Tab PO 10 mg QDAY NESTOR Administration Pyridostigmine [place] 180 mg 02/08/22 10:00 02/11/22 10:00 Pyridostigmine [place] 60 Mg Tab PO 180 mg DAILY NESTOR Administration Senna/Docusate Sodium 1 tab 02/07/22 22:00 02/11/22 10:01 Sennosides/Docusate Sodium 8.6/50 Mg Tab FEEDTUBE 1 tab BID NESTOR Administration Sodium Chloride 10 ml 02/06/22 22:00 02/11/22 10:00 Sodium Chloride 0.9% 10 Ml Flush Syringe IV 10 ml BID NESTOR Administration Sodium Chloride 10 ml 02/06/22 13:59 Sodium Chloride 0.9% 10 Ml Flush Syringe IV PRN PRN LINE FLUSH Nutrition/Malnutrition Assess - Dietary Evaluation Nutrition/Malnutrition Findings: Nutrition Notes Start: 02/07/22 13:09 Freq: Status: Active Protocol: Document 02/09/22 11:58 LATOYA (Rec: 02/09/22 12:06 KIRITODESSA [id number]) Nutrition Notes Initial or Follow up Reassessment Current Diagnosis Respiratory Failure Other Pertinent Diagnosis Myasthenia gravis crisis Current Diet TF - Jevity 1.2 at 70ml/hr Labs/Tests Reviewed Pertinent Medications Lasix, 15mmol KPhos x 1 dose, Prednisone Height 5 ft 10 in Weight 102.194 kg [place] Body Weight (kg) 75.45 BMI 32.3 Weight Status Obese Subjective/Other Information Pt remains on vent support, however, may be extubated this am; TF on hold in anticipation of extubation. Burn Absent Trauma Absent Minimum of two criteria No #1 Nutrition Diagnosis Inadequate oral intake As Evidenced by Signs and Symptoms pt remains NPO Diagnosis Progress(for reassessment Continues documentation) Is patient on ventilator? Yes Is Patient Ambulatory and/or Out of Bed No REE-([facility]-confined to bed) 2352.060 Kcal/Kg value to use for calculation 18 Approximate Energy Requirements Using 1839 kcal/Kg Calculation Used for Recommendations Kcal/kg Additional Notes Pro needs 2g/kg IBW: 151g/day Fluid needs 1ml/kcal Nutrition Intervention Change Diet Order: Advance diet when medically feasible Nutrition Support: Resume TF if necessary; change TF formula to Vital AF 1.2 at 65ml/hr. Goal #1 Either advance diet or resume TF to meet nutrient needs Follow-Up By: 02/12/22 Additional Comments F/U: diet advancement vs TF restart, extubation <LELO ODONNELL - Last Filed: 02/12/22 07:25> Assessment and Plan Assessment and plan: I saw and evaluated the patient. I agree with the findings and the plan of care as documented in the Nurse Practitioner's~note, with the following corrections and additions. Hospitalist Physical - Constitutional Vitals: Temp Pulse Resp BP Pulse Ox 97.6 F 44 L 16 115/74 100 02/12/22 03:55 02/12/22 07:00 02/12/22 07:00 02/12/22 07:00 02/12/22 07:00 Results - Labs CBC & Chem 7: 02/12/22 04:25 02/12/22 04:25 Labs: Laboratory Last Values WBC 3.7 K/mm3 (4.5-11.0) L 02/12/22 04:25 RBC 4.74 M/mm3 (3.65-5.03) 02/12/22 04:25 Hgb 10.5 gm/dl (11.8-15.2) L 02/12/22 04:25 Hct 34.5 % (35.5-45.6) L 02/12/22 04:25 MCV 73 fl (84-94) L 02/12/22 04:25 MCH 22 pg (28-32) L 02/12/22 04:25 MCHC 30 % (32-34) L 02/12/22 04:25 RDW 16.9 % (13.2-15.2) H 02/12/22 04:25 Plt Count 207 K/mm3 (140-440) 02/12/22 04:25 Lymph % (Auto) 29.4 % (13.4-35.0) 02/07/22 04:15 [place] % (Auto) 9.1 % (0.0-7.3) H 02/07/22 04:15 Eos % (Auto) 0.4 % (0.0-4.3) 02/07/22 04:15 Baso % (Auto) 0.7 % (0.0-1.8) 02/07/22 04:15 Lymph # (Auto) 1.7 K/mm3 (1.2-5.4) 02/07/22 04:15 [place] # (Auto) 0.5 K/mm3 (0.0-0.8) 02/07/22 04:15 Eos # (Auto) 0.0 K/mm3 (0.0-0.4) 02/07/22 04:15 Baso # (Auto) 0.0 K/mm3 (0.0-0.1) 02/07/22 04:15 Seg Neutrophils % 60.4 % (40.0-70.0) 02/07/22 04:15 Seg Neutrophils # 3.6 K/mm3 (1.8-7.7) 02/07/22 04:15 ABG pH 7.333 pH Units (7.350-7.450) L 02/08/22 09:20 ABG pCO2 48.2 mm Hg 02/08/22 09:20 ABG pO2 114.7 mm Hg (80.0-90.0) H 02/08/22 09:20 ABG HCO3 25.0 mmol/L (20.0-26.0) 02/08/22 09:20 ABG O2 Saturation 97.9 % (95.0-99.0) 02/08/22 09:20 ABG O2 Content 15.1 (0.0-44) 02/08/22 09:20 ABG Base Excess -1.1 mmol/L (-2.0-3.0) 02/08/22 09:20 ABG Hemoglobin 11.1 gm/dl (14.0-18.0) L 02/08/22 09:20 ABG Carboxyhemoglobin 1.4 % (0.0-5.0) 02/08/22 09:20 ABG Methemoglobin 0.5 % (0.0-1.5) 02/08/22 09:20 Oxyhemoglobin 96.1 % (95.0-99.0) 02/08/22 09:20 FiO2 35 % 02/08/22 09:20 Sodium 141 mmol/L (137-145) 02/12/22 04:25 Potassium 3.8 mmol/L (3.6-5.0) 02/12/22 04:25 Chloride 105.3 mmol/L (98-107) 02/12/22 04:25 Carbon Dioxide 28 mmol/L (22-30) 02/12/22 04:25 Anion Gap 12 mmol/L 02/12/22 04:25 BUN 9 mg/dL (9-20) 02/12/22 04:25 Creatinine 0.8 mg/dL (0.8-1.3) 02/12/22 04:25 Estimated GFR > 60 ml/min 02/12/22 04:25 BUN/Creatinine Ratio 11 % 02/12/22 04:25 Glucose 90 mg/dL (75-100) 02/12/22 04:25 Calcium 8.8 mg/dL (8.4-10.2) 02/12/22 04:25 Total Bilirubin 0.40 mg/dL (0.1-1.2) 02/07/22 04:15 AST 9 units/L (5-40) 02/07/22 04:15 ALT 11 units/L (7-56) 02/07/22 04:15 Alkaline Phosphatase 75 units/L (35-129) 02/07/22 04:15 Total Protein 7.0 g/dL (6.3-8.2) 02/07/22 04:15 Albumin 4.0 g/dL (3.9-5) 02/07/22 04:15 Albumin/Globulin Ratio 1.3 % 02/07/22 04:15 Roberson/IV: Voiding Method Urinal Active Medications - Current Medications Current Medications: Generic Name Dose Route Start Last Admin Trade Name Freq PRN Reason Stop Dose Admin Acetaminophen 650 mg 02/06/22 15:00 02/10/22 18:11 Acetaminophen 325 Mg Tab PO 650 mg Q6H PRN Administration Pain MILD(1-3)/Fever >100.5/[place]BERG Albuterol 2.5 mg 02/06/22 15:00 Albuterol 2.5 Mg/3 Ml Nebu IH Q3HRT PRN Shortness Of Breath Enoxaparin Sodium 40 mg 02/06/22 22:00 02/11/22 21:01 Enoxaparin 40 Mg/0.4 Ml Inj SUB-Q 40 mg QDAY@2200 NESTOR Administration Protocol Famotidine 20 mg 02/08/22 10:00 02/11/22 21:01 Famotidine 20 Mg Tab FEEDTUBE 20 mg BID NESTOR Administration Hydrophilic Ointment 1 applic 02/07/22 10:55 Lip Therapy Vaseline TP Q2HR PRN Dry Lips Multi-Ingred Cream/Lotion/Oil/Oint 1 applic 02/07/22 10:55 Mineral Oil/Petrolatum, White Ophth Oint 3.5 Gm OU Q4HR PRN Dry Eye(s) Mycophenolate Mofetil 1,000 mg 02/09/22 10:00 02/11/22 21:01 Mycophenolate 1000 Mg/5 Ml Oral Liqd FEEDTUBE 1,000 mg BID NESTOR Administration Ondansetron HCl 4 mg 02/08/22 17:00 02/10/22 18:25 Ondansetron 4 Mg/2 Ml Inj IV 4 mg Q8H PRN Administration Nausea And Vomiting Oxycodone/Acetaminophen 1 tab 02/06/22 15:00 Oxycodone /Acetaminophen 5-325mg Tab PO Q16H PRN Pain, Moderate (4-6) Prednisone 10 mg 02/08/22 10:00 02/11/22 10:01 Prednisone 10 Mg Tab PO 10 mg QDAY NESTOR Administration Pyridostigmine [place] 180 mg 02/08/22 10:00 02/11/22 10:00 Pyridostigmine [place] 60 Mg Tab PO 180 mg DAILY NESTOR Administration Senna/Docusate Sodium 1 tab 02/07/22 22:00 02/11/22 21:01 Sennosides/Docusate Sodium 8.6/50 Mg Tab FEEDTUBE 1 tab BID NESTOR Administration Sodium Chloride 10 ml 02/06/22 22:00 02/11/22 21:01 Sodium Chloride 0.9% 10 Ml Flush Syringe IV 10 ml BID NESTOR Administration Sodium Chloride 10 ml 02/06/22 13:59 Sodium Chloride 0.9% 10 Ml Flush Syringe IV PRN PRN LINE FLUSH Nutrition/Malnutrition Assess - Dietary Evaluation Nutrition/Malnutrition Findings: Nutrition Notes Start: 02/07/22 13:09 Freq: Status: Active Protocol: Document 02/09/22 11:58 LATOYA (Rec: 02/09/22 12:06 LATOYA [id number]) Nutrition Notes Initial or Follow up Reassessment Current Diagnosis Respiratory Failure Other Pertinent Diagnosis Myasthenia gravis crisis Current Diet TF - Jevity 1.2 at 70ml/hr Labs/Tests Reviewed Pertinent Medications Lasix, 15mmol KPhos x 1 dose, Prednisone Height 5 ft 10 in Weight 102.194 kg [place] Body Weight (kg) 75.45 BMI 32.3 Weight Status Obese Subjective/Other Information Pt remains on vent support, however, may be extubated this am; TF on hold in anticipation of extubation. Burn Absent Trauma Absent Minimum of two criteria No #1 Nutrition Diagnosis Inadequate oral intake As Evidenced by Signs and Symptoms pt remains NPO Diagnosis Progress(for reassessment Continues documentation) Is patient on ventilator? Yes Is Patient Ambulatory and/or Out of Bed No REE-([facility]-confined to bed) 2352.060 Kcal/Kg value to use for calculation 18 Approximate Energy Requirements Using 1839 kcal/Kg Calculation Used for Recommendations Kcal/kg Additional Notes Pro needs 2g/kg IBW: 151g/day Fluid needs 1ml/kcal Nutrition Intervention Change Diet Order: Advance diet when medically feasible Nutrition Support: Resume TF if necessary; change TF formula to Vital AF 1.2 at 65ml/hr. Goal #1 Either advance diet or resume TF to meet nutrient needs Follow-Up By: 02/12/22 Additional Comments F/U: diet advancement vs TF restart, extubation
--- NOTE | 2022-02-11 17:20 | Progress Note ---
Assessment and Plan 36 YO Male with MG currently taking Cellcept, Mycophenolate, and Prednisone presents ED for evaluation. Patient states that he had experienced generalized weakness over the past 1 day with progressive and worsening symptoms over the same timeframe. Patient states that he was able to walk earlier today but he is unable to walk. Patient also acknowledges upper extremity weakness as well as difficulty speaking. EMS was notified and upon arrival the patient was found to be in distress and subsequently transported to [facility] for further care and evaluation of the aforementioned symptoms. The patient was seen and evaluated in the emergency department. All lab and imaging studies reviewed. Patient found to have myasthenia gravis crisis with increased risk for worsening symptoms as well as development of acute hypoxemic respiratory failure. Patient placed on noninvasive positive pressure ventilation in the emergency department and admitted to ICU. IVIG ordered in the emergency department. Patient denies fever, chills, chest pain, palpitation productive cough, skin rash and recent Contact, known exposure to COVID-19. Patient eventually intubated and placed on mechanical ventilation. Patient extubated now. Patient has history vaping 2 times a day x 14 years. Stopped vaping 3 years ago. Denies alcohol abuse. Used Marijuna in his teenage years. Not used Marijuana for long time. 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 Has no children. No known drug allergies. Patient has history of Sleep apnea. Uses CPAP 12 cm H2O during night time. Patient Obese, awake, resting on room air. O2 saturation 100%. No acute respiratory distress at rest. Patient afebrile. No leukocytosis, Blood pressure 120/68, rate 61, respirations 17. Chest xray 02/10/22 Previous density of the left has almost completely cleared with only minimal basilar atelectasis remaining. Right lung field clear. No pneumothorax. CT scan of chest 02/08/[address] evidence of thymoma. Hypoattenuating lesions of the liver statistically reflect hepatic hemangiomas. One of these lesions demonstrate characteristic peripheral puddling of contrast, the second does not clearly demonstrate specific pattern of enhancement. Ultrasound targeting these lesions may be useful for further characterization and confirmation of hemangioma. Moderate subsegmental atelectasis of the bilateral lungs. Satisfactory positioning of endotracheal tube and esophagogastric tube. Patient is on Po Prednisone, Albuterolinhaler, S/C Lovenox and famotidine. I spent critical care time of 45 minutes in obtaining history, review the chart, Examining the patient, review xrays, lab results, talking to the nursing staff , respiratory therapy and work up plan of treatment. - Patient Problems (1) Acute hypoxemic respiratory failure Current Visit: Yes Status: Acute Plan to address problem: CPAP during night time. Continue prednisone. Continue S/C Lovenox. Continue famotidine. Albuterol inhaler prn for shortness of breath. (2) Obesity Current Visit: Yes Status: Acute Qualifiers: Body mass index: BMI 33.0-33.9 Plan to address problem: Counseled to loose weight Exercise and diet. (3) Sleep apnea Current Visit: Yes Status: Acute Plan to address problem: Patient says he has history of sleep apnea. No sleep study results available at this time. Continue CPAP as she is using at home. Recommend to loose weight. Explained sleep hygiene. Recommend not to drive or operate heavy equipment with sleepiness. Avoid alcohol, sedatives and Narcotics If sleep study is while back, recommend to repeat sleep study as out patient. (4) Myasthenia gravis Current Visit: Yes Status: Acute Plan to address problem: Management as per primary care and neurology. Subjective Date of service: 02/11/22 Principal diagnosis: Myasthenic crisis; Obesity; Possible ANTON/OHS; Blurry v ision; Hypokalemia Interval history: 36 YO Male with MG currently taking Cellcept, Mycophenolate, and Prednisone presents ED for evaluation. Patient states that he had experienced generalized weakness over the past 1 day with progressive and worsening symptoms over the s archana timeframe. Patient states that he was able to walk earlier today but he is unable to walk. Patient also acknowledges upper extremity weakness as well as difficulty speaking. EMS was notified and upon arrival the patient was found to be in distress and subsequently transported to [facility] for further care and evaluation of the aforementioned symptoms. The patient was seen and evaluated in the emergency department. All lab and imaging studies reviewed. Patient found to have myasthenia gravis crisis with increased risk for worsening symptoms as well as development of acute hypoxemic respiratory failure. Patient placed on noninvasive positive pressure ventilation in the emergency department and admitted to ICU. IVIG ordered in the emergency department. Patient denies fever, chills, chest pain, palpitation productive cough, skin rash and recent Contact, known exposure to COVID-19. Patient eventually intubated and placed on mechanical ventilation. Patient extubated now. Patient has history vaping 2 times a day x 14 years. Stopped vaping 3 years ago. Denies alcohol abuse. Used Marijuna in his teenage years. Not used Marijuana for long time. 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 Has no children. No known drug allergies. Patient has history of Sleep apnea. Uses CPAP 12 cm H2O during night time. Patient Obese, awake, resting on room air. O2 saturation 100%. No acute respiratory distress at rest. Patient afebrile. No leukocytosis, Blood pressure 120/68, rate 61, respirations 17. Chest xray 02/10/22 Previous density of the left has almost completely cleared with only minimal basilar atelectasis remaining. Right lung field clear. No pneumothorax. CT scan of chest 02/08/[address] evidence of thymoma. Hypoattenuating lesions of the liver statistically reflect hepatic hemangiomas. One of these lesions demonstrate characteristic peripheral puddling of contrast, the second does not clearly demonstrate specific pattern of enhancement. Ultrasound targeting these lesions may be useful for further characterization and confirmation of hemangioma. Moderate subsegmental atelectasis of the bilateral lungs. Satisfactory positioning of endotracheal tube and esophagogastric tube. Patient is on Po Prednisone, Albuterolinhaler, S/C Lovenox and famotidine. Objective Vital Signs - 12hr 02/11/22 02/11/22 02/11/22 06:01 07:01 07:15 Temperature Pulse Rate 51 L 43 L 48 L Pulse Rate [ From Monitor] Respiratory 15 17 14 Rate Blood Pressure 120/75 135/72 135/72 O2 Sat by Pulse 100 100 100 Oximetry 02/11/22 02/11/22 02/11/22 08:00 09:00 10:10 Temperature 97.2 F L Pulse Rate 43 L 81 68 Pulse Rate [ 54 L From Monitor] Respiratory 17 18 21 Rate Blood Pressure 109/71 116/59 O2 Sat by Pulse 95 100 99 Oximetry 02/11/22 02/11/22 11:00 12:00 Temperature Pulse Rate 53 L 58 L Pulse Rate [ From Monitor] Respiratory 16 12 Rate Blood Pressure 117/68 109/55 O2 Sat by Pulse 100 100 Oximetry Constitutional: no acute distress, alert, other (young obese male ) Eyes: non-icteric ENT: oropharynx moist Neck: supple, no lymphadenopathy, no JVD, other (large circumference) Effort: mildly labored Ascultation: Bilateral: diminished breath sounds Percussion: Bilateral: not dull Cardiovascular: regular rate and rhythm Gastrointestinal: normoactive bowel sounds, soft, non-tender, non-distended (protuberant) Integumentary: normal Extremities: no cyanosis, no edema, pulses normal, no ischemia or petechiae Neurologic: non-focal exam (grossly; generalized weakness), pupils equal and round, CN II-XII normal, motor strength normal and, other (power 3/5 bilaterally) Psychiatric: mood appropriate, affect normal CBC and BMP: 02/11/22 04:38 02/11/22 04:38 ABG, PT/INR, D-dimer: ABG ABG pH 7.333 pH Units (7.350-7.450) L 02/08/22 09:20 ABG pCO2 48.2 mm Hg 02/08/22 09:20 ABG pO2 114.7 mm Hg (80.0-90.0) H 02/08/22 09:20 ABG O2 Saturation 97.9 % (95.0-99.0) 02/08/22 09:20 Abnormal lab findings: Abnormal Labs 02/06/22 02/06/22 02/06/22 12:39 12:39 13:59 WBC RBC 5.75 H Hgb Hct MCV 74 L MCH 23 L MCHC 30 L RDW 16.9 H Lymph % (Auto) 6.4 L Bent % (Auto) Lymph # (Auto) 0.5 L Seg Neutrophils % 89.3 H ABG pH ABG pO2 ABG Hemoglobin 12.6 L Oxyhemoglobin Potassium 3.5 L Chloride 109.1 H Carbon Dioxide 20 L Creatinine 0.7 L Glucose 113 H 02/07/22 02/07/22 02/08/22 04:15 12:00 04:23 WBC RBC 5.10 H Hgb 11.5 L 11.0 L Hct MCV 72 L 74 L MCH 23 L 22 L MCHC 30 L RDW 17.3 H 17.1 H Lymph % (Auto) Bent % (Auto) 9.1 H Lymph # (Auto) Seg Neutrophils % ABG pH ABG pO2 72.6 L ABG Hemoglobin 12.2 L Oxyhemoglobin 94.4 L Potassium Chloride Carbon Dioxide Creatinine Glucose 02/08/22 02/08/22 02/09/22 04:23 09:20 04:50 WBC RBC Hgb 10.4 L Hct 33.7 L MCV 73 L MCH 22 L MCHC 31 L RDW 17.5 H Lymph % (Auto) Bent % (Auto) Lymph # (Auto) Seg Neutrophils % ABG pH 7.333 L ABG pO2 114.7 H ABG Hemoglobin 11.1 L Oxyhemoglobin Potassium Chloride 109.3 H Carbon Dioxide Creatinine 0.6 L Glucose 02/09/22 02/10/22 02/11/22 04:50 04:50 04:38 WBC 4.4 L 3.3 L RBC Hgb 10.1 L 10.4 L Hct 32.9 L 33.6 L MCV 73 L 73 L MCH 22 L 23 L MCHC 31 L 31 L RDW 17.2 H 17.0 H Lymph % (Auto) Bent % (Auto) Lymph # (Auto) Seg Neutrophils % ABG pH ABG pO2 ABG Hemoglobin Oxyhemoglobin Potassium Chloride Carbon Dioxide Creatinine Glucose 107 H 02/11/22 04:38 WBC RBC Hgb Hct MCV MCH MCHC RDW Lymph % (Auto) Bent % (Auto) Lymph # (Auto) Seg Neutrophils % ABG pH ABG pO2 ABG Hemoglobin Oxyhemoglobin Potassium Chloride Carbon Dioxide Creatinine 0.7 L Glucose 101 H Chest x-ray: report reviewed, image reviewed CT scan - chest: report reviewed, image reviewed Additional Studies: CHEST 1 VIEW 02/10/22 INDICATION / CLINICAL INFORMATION: F/u respiratory failure STUDY TIME: 838 COMPARISON: 02/09/2022 FINDINGS: SUPPORT DEVICES: Tubes have been removed HEART / MEDIASTINUM: No significant abnormality. LUNGS / PLEURA: Previous density of the left has almost completely cleared with only minimal basilar atelectasis remaining. Right lung field clear. No pneumothorax. ADDITIONAL FINDINGS: No significant additional findings. CT CHEST WITH CONTRAST 02/08/22 INDICATION / CLINICAL INFORMATION: M.Gravis/Thymoma. TECHNIQUE: Axial CT images were obtained through the chest after 100 cc Omnipaque [address] scans at this location are performed using CT dose reduction for ALARA by means of automated exposure control. COMPARISON: Chest x-ray same date FINDINGS: CHEST LOWER NECK: Soft tissues and musculature of the lower neck demonstrate no significant abnormality. The thyroid demonstrates no significant abnormality. THORACIC AORTA: No significant abnormality. PULMONARY ARTERY:No significant abnormality. HEART: No significant abnormality. CORONARY ARTERY CALCIFICATION: Absent -- None. MEDIASTINUM / ALEYDA: No CT evidence of thymoma. ESOPHAGUS: No significant abnormality. Esophagogastric tube is present. LYMPH NODES: No adenopathy demonstrated within the axilla, aleyda, or mediastinum. LUNGS: Endotracheal tube terminates above the cole. Subsegmental atelectasis right middle lobe and bilateral lower lobes. Superimposed infectious process not excluded. PLEURA: No pleural effusion. No pneumothorax. THORACIC SOFT TISSUES: Moderate bilateral gynecomastia. OSSEOUS STRUCTURES: No significant abnormality of included osseous structures. UPPER ABDOMEN: 2 hypoattenuating lesions of the liver in the right hepatic lobe demonstrated. The larger measures up to 2 cm. One of these demonstrates peripheral puddling of contrast compatible with hepatic hemangioma. The second demonstrates no distinct or specific pattern of enhancement. Upper pole cyst of the left kidney. ADDITIONAL CHEST FINDINGS: None. IMPRESSION: 1. No CT evidence of thymoma. 2. Hypoattenuating lesions of the liver statistically reflect hepatic hemangiomas. One of these lesions demonstrate characteristic peripheral puddling of contrast, the second does not clearly demonstrate specific pattern of enhancement. Ultrasound targeting these lesions may be useful for further characterization and confirmation of hemangioma. 3. Moderate subsegmental atelectasis of the bilateral lungs. 4. Satisfactory positioning of endotracheal tube and esophagogastric tube. Allied health notes reviewed: RT
[2022-02-11] MEDS: ENOXAPARIN 40 MG/0.4 ML INJ SUB-Q SCH (21:01)
[2022-02-12 04:43] LABS: Mean Corpuscular HGB Conc 30 % (32-34); Mean Corpuscular Volume 73 fl (84-94); Platelet Count 207 K/mm3 (140-440); Red Blood Count 4.74 M/mm3 (3.65-5.03); Red Cell Distribution Width 16.9 % (13.2-15.2)
[2022-02-12 04:55] LABS: Hematocrit 34.5 % (35.5-45.6); Hemoglobin 10.5 gm/dl (11.8-15.2)
[2022-02-12 05:05] LABS: BUN/Creatinine Ratio 11; Blood Urea Nitrogen 9 mg/dL (9-20); Calcium 8.8 mg/dL (8.4-10.2); Hemolysis Index 22
[2022-02-12] MEDS: PYRIDOSTIGMINE BROMIDE 60 MG TAB PO SCH (09:58)
[2022-02-12] MEDS: MYCOPHENOLATE PO SCH ×2 (09:58→21:00)
[2022-02-12] MEDS: FAMOTIDINE 20 MG TAB PO SCH ×2 (09:59→21:00)
[2022-02-12] MEDS: predniSONE 10 MG TAB PO SCH (09:59)
[2022-02-12] MEDS: SENNOSIDES/DOCUSATE SODIUM 8.6/50 MG TAB PO SCH ×2 (10:04→21:00)
--- NOTE | 2022-02-12 13:04 | Progress Note ---
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 Billie Delgado) -Neurology consulted, appreciate recommendations -s/p IVIG x 5 days -Restarted home prednisone, cellcept, mestinon -Reorientation as needed -Maintain sleep-wake cycle -As needed analgesia -Transfer to [facility] was declined, no available ICU beds at this time. 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 -CCM consulted, appreciate recommendations -Intubated on 02/07 in the ED with 7.5 OETT at 20 at the teeth for difficulty meghan athing and noted to be drooling and extubated 02/09 -BiPAP q hs and prn -CT chest w con showed no evidence of thymoma -Pulmonary hygiene bundle -SPO2 monitoring GI: Hepatic Hemangiomas -noted on CT chest -24 hours -1350 mL -ST recommends mechanical soft with chopped meat and gravy applied on top of meat with thin liquid -PPI -BR: Senokot S -Outpatient follow up for US and further workup : NAD -Monitor intake and output -Renally dose medications -Trend BMP prn ID: NAD -f/u blood culture -Monitor WBC and temperature curve Endo: NAD -Avoid hypoglycemia Heme: Leukopenia -Trend CBC -Transfuse hemoglobin less than 7 -SCDs to BLE while in bed The high probability of a clinically significant, sudden or life threatening deterioration of the [neuro/resp] system(s) required my full and direct attention, intervention and personal management. The aggregate critical care time was [60] minutes. This time is in addition to time spent performing reported procedures but includes the following: [x] Data Review and interpretation [x] Patient assessment and monitoring of vital signs [x] Documentation [x] Medication orders and management Disposition Plan: imcu Total Time Spent with Patient (Minutes): 60 History Interval history: This is 36 year old male with Myasthenia Gravis (currently taking Cellcept, Mycophenolate, and Prednisone), ANTON (uses home CPAP) and obesity who presented to the emergency department on 02/06 with complaints of generalized weakness of the past day with worsening symptoms over the same timeframe via EMS. On hospitalist examination patient reported he was able to walk earlier during the day however at the time of evaluation, patient was unable to walk and unable to lift or feel his lower extremities and acknowledged upper extremity weakness and difficulty speaking. Patient was found to have myasthenia gravis crisis and was admitted to the ICU for risk of worsening symptoms. In the emergency department patient was placed on NIPPV and IVIG was ordered. Patient was admitted to the hospital service with Myasthenia Gravis crisis with consults to CCM and neurology Hospital Course to Date: 02/07: S/p X1 dose of IV IG overnight, patient reported feeling much better and stronger this am, moving all extremities. Plan to wean off Bipap this am. Okay to start a diet if patient pass bedside swallow. D/W CCM plan for CT chest w con tomorrow to r/o thymoma. Neurology consulted. 02/08: S/p emergent intubattion by anethesia yesterday. Now intubated and sedated, RASS -2. Neurology recommendations noted. Resumed home meds. Will wean off sedation this am for possible SAT/SBT. CT chest also noted with no evidence of thymoma. Continue IVIG. Attending received call back from [facility]. Transfer was declined, no available ICU beds at this time. They recommend continuing IVIG and possible plasma exchange. Awaiting on Neurology final recommendations. 02/09: S/p Extubation this am. Desated to 85% on 3L NC, SPO2 improved to 88% on 8L NC. This am CXR noted, worsen opacity of the left side. CCM at the bedside, X 1 dose of IV Lasix ordered and place patient on Bipap. Low Threshold for reintubation. Plan of care and the high probability for reintubation was discussed with patient at the bedside. Patient verbalized understanding and agree with current care plan. Continue IVIG, Awaiting on Neurology final recom mendations. 02/10: Tolerated Bipap, now on 2L NC this am, SPO2 at 100%. No s/s of any acute respiratory distress noted. This am CXR also noted with significant improvement. Continue IVIGm and Bipap at night. Incentive Spirometer also ordered. advance diet as tolerated. PT/OT/Speech consulted. 02/11: Completed x5days of IVIG overnight. Stable on RA, still complaining of generalized weakness, other stable. Diet advanced to solid this am, patient is tolerating it. Continue IS and Bipap at night. Encourage mobility as tolerated, PT/OT/Speech consult pending. 02/12: CPAP prn, currently on RA. Improved strength to BLE and BUE per patient. Hospitalist Physical - Constitutional Vitals: Temp Pulse Resp BP Pulse Ox 97.9 F 81 17 152/88 100 02/12/22 11:39 02/12/22 12:00 02/12/22 12:00 02/12/22 12:00 02/12/22 12:00 General appearance: Present: no acute distress, well-nourished, obese - EENT Eyes: Present: PERRL (drooping eyelid right side) ENT: dentition normal, hearing decreased - Neck Neck: Present: normal ROM - Respiratory Respiratory effort: normal Respiratory: bilateral: diminished - Cardiovascular Rhythm: regular Heart Sounds: Present: S1 & S2. Absent: systolic murmur, diastolic murmur - Extremities Extremities: no ischemia, pulses intact, pulses symmetrical, No edema, normal temperature, normal color Peripheral Pulses: within normal limits - Abdominal General gastrointestinal: soft, non-tender, non-distended, normal bowel sounds - Integumentary Integumentary: Present: warm, dry - Psychiatric Psychiatric: appropriate mood/affect, cooperative - Neurologic Neurologic: no focal deficits, moves all extremities - Allied Health Allied health notes reviewed: nursing, RT, social work Results - Labs CBC & Chem 7: 02/12/22 04:25 02/12/22 04:25 Labs: Laboratory Last Values WBC 3.7 K/mm3 (4.5-11.0) L 02/12/22 04:25 RBC 4.74 M/mm3 (3.65-5.03) 02/12/22 04:25 Hgb 10.5 gm/dl (11.8-15.2) L 02/12/22 04:25 Hct 34.5 % (35.5-45.6) L 02/12/22 04:25 MCV 73 fl (84-94) L 02/12/22 04:25 MCH 22 pg (28-32) L 02/12/22 04:25 MCHC 30 % (32-34) L 02/12/22 04:25 RDW 16.9 % (13.2-15.2) H 02/12/22 04:25 Plt Count 207 K/mm3 (140-440) 02/12/22 04:25 Lymph % (Auto) 29.4 % (13.4-35.0) 02/07/22 04:15 Posey % (Auto) 9.1 % (0.0-7.3) H 02/07/22 04:15 Eos % (Auto) 0.4 % (0.0-4.3) 02/07/22 04:15 Baso % (Auto) 0.7 % (0.0-1.8) 02/07/22 04:15 Lymph # (Auto) 1.7 K/mm3 (1.2-5.4) 02/07/22 04:15 Posey # (Auto) 0.5 K/mm3 (0.0-0.8) 02/07/22 04:15 Eos # (Auto) 0.0 K/mm3 (0.0-0.4) 02/07/22 04:15 Baso # (Auto) 0.0 K/mm3 (0.0-0.1) 02/07/22 04:15 Seg Neutrophils % 60.4 % (40.0-70.0) 02/07/22 04:15 Seg Neutrophils # 3.6 K/mm3 (1.8-7.7) 02/07/22 04:15 ABG pH 7.333 pH Units (7.350-7.450) L 02/08/22 09:20 ABG pCO2 48.2 mm Hg 02/08/22 09:20 ABG pO2 114.7 mm Hg (80.0-90.0) H 02/08/22 09:20 ABG HCO3 25.0 mmol/L (20.0-26.0) 02/08/22 09:20 ABG O2 Saturation 97.9 % (95.0-99.0) 02/08/22 09:20 ABG O2 Content 15.1 (0.0-44) 02/08/22 09:20 ABG Base Excess -1.1 mmol/L (-2.0-3.0) 02/08/22 09:20 ABG Hemoglobin 11.1 gm/dl (14.0-18.0) L 02/08/22 09:20 ABG Carboxyhemoglobin 1.4 % (0.0-5.0) 02/08/22 09:20 ABG Methemoglobin 0.5 % (0.0-1.5) 02/08/22 09:20 Oxyhemoglobin 96.1 % (95.0-99.0) 02/08/22 09:20 FiO2 35 % 02/08/22 09:20 Sodium 141 mmol/L (137-145) 02/12/22 04:25 Potassium 3.8 mmol/L (3.6-5.0) 02/12/22 04:25 Chloride 105.3 mmol/L (98-107) 02/12/22 04:25 Carbon Dioxide 28 mmol/L (22-30) 02/12/22 04:25 Anion Gap 12 mmol/L 02/12/22 04:25 BUN 9 mg/dL (9-20) 02/12/22 04:25 Creatinine 0.8 mg/dL (0.8-1.3) 02/12/22 04:25 Estimated GFR > 60 ml/min 02/12/22 04:25 BUN/Creatinine Ratio 11 % 02/12/22 04:25 Glucose 90 mg/dL (75-100) 02/12/22 04:25 Calcium 8.8 mg/dL (8.4-10.2) 02/12/22 04:25 Total Bilirubin 0.40 mg/dL (0.1-1.2) 02/07/22 04:15 AST 9 units/L (5-40) 02/07/22 04:15 ALT 11 units/L (7-56) 02/07/22 04:15 Alkaline Phosphatase 75 units/L (35-129) 02/07/22 04:15 Total Protein 7.0 g/dL (6.3-8.2) 02/07/22 04:15 Albumin 4.0 g/dL (3.9-5) 02/07/22 04:15 Albumin/Globulin Ratio 1.3 % 02/07/22 04:15 Roberson/IV: Voiding Method Urinal Active Medications - Current Medications Current Medications: Generic Name Dose Route Start Last Admin Trade Name Freq PRN Reason Stop Dose Admin Acetaminophen 650 mg 02/06/22 15:00 02/10/22 18:11 Acetaminophen 325 Mg Tab PO 650 mg Q6H PRN Administration Pain MILD(1-3)/Fever >100.5/WEINBERG Albuterol 2.5 mg 02/06/22 15:00 Albuterol 2.5 Mg/3 Ml Nebu IH Q3HRT PRN Shortness Of Breath Enoxaparin Sodium 40 mg 02/06/22 22:00 02/11/22 21:01 Enoxaparin 40 Mg/0.4 Ml Inj SUB-Q 40 mg QDAY@2200 NESTOR Administration Protocol Famotidine 20 mg 02/12/22 10:00 02/12/22 09:59 Famotidine 20 Mg Tab PO 20 mg BID NESTOR Administration Hydrophilic Ointment 1 applic 02/07/22 10:55 Lip Therapy Vaseline TP Q2HR PRN Dry Lips Multi-Ingred Cream/Lotion/Oil/Oint 1 applic 02/07/22 10:55 Mineral Oil/Petrolatum, White Ophth Oint 3.5 Gm OU Q4HR PRN Dry Eye(s) Mycophenolate Mofetil 1,000 mg 02/12/22 10:00 02/12/22 09:58 Mycophenolate 1000 Mg/5 Ml Oral Liqd PO 1,000 mg BID NESTOR Administration Ondansetron HCl 4 mg 02/08/22 17:00 02/10/22 18:25 Ondansetron 4 Mg/2 Ml Inj IV 4 mg Q8H PRN Administration Nausea And Vomiting Oxycodone/Acetaminophen 1 tab 02/06/22 15:00 Oxycodone /Acetaminophen 5-325mg Tab PO Q16H PRN Pain, Moderate (4-6) Prednisone 10 mg 02/08/22 10:00 02/12/22 09:59 Prednisone 10 Mg Tab PO 10 mg QDAY NESTOR Administration Pyridostigmine [place] 180 mg 02/08/22 10:00 02/12/22 09:58 Pyridostigmine [place] 60 Mg Tab PO 180 mg DAILY NESTOR Administration Senna/Docusate Sodium 1 tab 02/12/22 10:00 02/12/22 10:04 Sennosides/Docusate Sodium 8.6/50 Mg Tab PO 1 tab BID NESTOR Administration Sodium Chloride 10 ml 02/06/22 22:00 02/12/22 09:57 Sodium Chloride 0.9% 10 Ml Flush Syringe IV 10 ml BID NESTOR Administration Sodium Chloride 10 ml 02/06/22 13:59 Sodium Chloride 0.9% 10 Ml Flush Syringe IV PRN PRN LINE FLUSH Nutrition/Malnutrition Assess - Dietary Evaluation Nutrition/Malnutrition Findings: Nutrition Notes Start: 02/07/22 13:09 Freq: Status: Active Protocol: Document 02/09/22 11:58 KIRITODESSA (Rec: 02/09/22 12:06 [facility] [id number]) Nutrition Notes Initial or Follow up Reassessment Current Diagnosis Respiratory Failure Other Pertinent Diagnosis Myasthenia gravis crisis Current Diet TF - Jevity 1.2 at 70ml/hr Labs/Tests Reviewed Pertinent Medications Lasix, 15mmol KPhos x 1 dose, Prednisone Height 5 ft 10 in Weight 102.194 kg Burgin Body Weight (kg) 75.45 BMI 32.3 Weight Status Obese Subjective/Other Information Pt remains on vent support, however, may be extubated this am; TF on hold in anticipation of extubation. Burn Absent Trauma Absent Minimum of two criteria No #1 Nutrition Diagnosis Inadequate oral intake As Evidenced by Signs and Symptoms pt remains NPO Diagnosis Progress(for reassessment Continues documentation) Is patient on ventilator? Yes Is Patient Ambulatory and/or Out of Bed No REE-([facility]-confined to bed) 2352.060 Kcal/Kg value to use for calculation 18 Approximate Energy Requirements Using 1839 kcal/Kg Calculation Used for Recommendations Kcal/kg Additional Notes Pro needs 2g/kg IBW: 151g/day Fluid needs 1ml/kcal Nutrition Intervention Change Diet Order: Advance diet when medically feasible Nutrition Support: Resume TF if necessary; change TF formula to Vital AF 1.2 at 65ml/hr. Goal #1 Either advance diet or resume TF to meet nutrient needs Follow-Up By: 02/12/22 Additional Comments F/U: diet advancement vs TF restart, extubation <LELO ODONNELL - Last Filed: 02/20/22 07:12> Assessment and Plan Assessment and plan: I saw and evaluated the patient. I agree with the findings and the plan of care as documented in the Nurse Practitioner's~note, with the following corrections and additions. Hospitalist Physical - Constitutional Vitals: Temp Pulse Resp BP Pulse Ox 98.0 F 54 L 16 135/62 100 02/20/22 03:00 02/20/22 05:00 02/20/22 05:19 02/20/22 05:00 02/20/22 05:00 Results - Labs CBC & Chem 7: 02/20/22 04:23 02/20/22 04:23 Labs: Laboratory Last Values WBC 9.9 K/mm3 (4.5-11.0) 02/20/22 04:23 RBC 5.22 M/mm3 (3.65-5.03) H 02/20/22 04:23 Hgb 11.6 gm/dl (11.8-15.2) L 02/20/22 04:23 Hct 37.9 % (35.5-45.6) 02/20/22 04:23 MCV 73 fl (84-94) L 02/20/22 04:23 MCH 22 pg (28-32) L 02/20/22 04:23 MCHC 31 % (32-34) L 02/20/22 04:23 RDW 18.0 % (13.2-15.2) H 02/20/22 04:23 Plt Count 218 K/mm3 (140-440) 02/20/22 04:23 Lymph % (Auto) 43.5 % (13.4-35.0) H 02/18/22 07:18 Posey % (Auto) 7.6 % (0.0-7.3) H 02/18/22 07:18 Eos % (Auto) 0.2 % (0.0-4.3) 02/18/22 07:18 Baso % (Auto) 0.3 % (0.0-1.8) 02/18/22 07:18 Lymph # (Auto) 3.0 K/mm3 (1.2-5.4) 02/18/22 07:18 Posey # (Auto) 0.5 K/mm3 (0.0-0.8) 02/18/22 07:18 Eos # (Auto) 0.0 K/mm3 (0.0-0.4) 02/18/22 07:18 Baso # (Auto) 0.0 K/mm3 (0.0-0.1) 02/18/22 07:18 Seg Neutrophils % 48.4 % (40.0-70.0) 02/18/22 07:18 Seg Neutrophils # 3.4 K/mm3 (1.8-7.7) 02/18/22 07:18 Fibrinogen 89 mg/dl (211-480) L* 02/20/22 04:23 ABG pH 7.333 pH Units (7.350-7.450) L 02/08/22 09:20 ABG pCO2 48.2 mm Hg 02/08/22 09:20 ABG pO2 114.7 mm Hg (80.0-90.0) H 02/08/22 09:20 ABG HCO3 25.0 mmol/L (20.0-26.0) 02/08/22 09:20 ABG O2 Saturation 97.9 % (95.0-99.0) 02/08/22 09:20 ABG O2 Content 15.1 (0.0-44) 02/08/22 09:20 ABG Base Excess -1.1 mmol/L (-2.0-3.0) 02/08/22 09:20 ABG Hemoglobin 11.1 gm/dl (14.0-18.0) L 02/08/22 09:20 ABG Carboxyhemoglobin 1.4 % (0.0-5.0) 02/08/22 09:20 ABG Methemoglobin 0.5 % (0.0-1.5) 02/08/22 09:20 Oxyhemoglobin 96.1 % (95.0-99.0) 02/08/22 09:20 FiO2 35 % 02/08/22 09:20 Sodium 143 mmol/L (137-145) 02/20/22 04:23 Potassium 4.1 mmol/L (3.6-5.0) 02/20/22 04:23 Chloride 106.7 mmol/L (98-107) 02/20/22 04:23 Carbon Dioxide 29 mmol/L (22-30) 02/20/22 04:23 Anion Gap 11 mmol/L 02/20/22 04:23 BUN 11 mg/dL (9-20) 02/20/22 04:23 Creatinine 0.5 mg/dL (0.8-1.3) L 02/20/22 04:23 Estimated GFR > 60 ml/min 02/20/22 04:23 BUN/Creatinine Ratio 22 % 02/20/22 04:23 Glucose 107 mg/dL (75-100) H 02/20/22 04:23 Calcium 9.1 mg/dL (8.4-10.2) 02/20/22 04:23 Total Bilirubin 0.40 mg/dL (0.1-1.2) 02/07/22 04:15 AST 9 units/L (5-40) 02/07/22 04:15 ALT 11 units/L (7-56) 02/07/22 04:15 Alkaline Phosphatase 75 units/L (35-129) 02/07/22 04:15 Total Protein 8.0 g/dL (6.3-8.2) 02/16/22 04:52 Albumin 3.5 g/dL (3.9-5) L 02/16/22 04:52 Albumin/Globulin Ratio 1.3 % 02/07/22 04:15 Roberson/IV: Voiding Method Urinal Active Medications - Current Medications Current Medications: Generic Name Dose Route Start Last Admin Trade Name Freq PRN Reason Stop Dose Admin Acetaminophen 650 mg 02/06/22 15:00 02/19/22 22:01 Acetaminophen 325 Mg Tab PO 650 mg Q6H PRN Administration Pain MILD(1-3)/Fever >100.5/WEINBERG Albumin Human 200 gm 02/16/22 13:00 02/18/22 14:05 Albumin Human 5% (25 Gm/500 Ml) Inj IV 02/24/22 13:01 200 gm Q48H NESTOR Administration Albuterol 2.5 mg 02/06/22 15:00 02/15/22 21:54 Albuterol 2.5 Mg/3 Ml Nebu IH 2.5 mg Q3HRT PRN Administration Shortness Of Breath Diphenhydramine HCl 25 mg 02/15/22 14:06 02/16/22 11:49 Diphenhydramine 50 Mg/Ml Vial IV 25 mg Q6H PRN Administration Itching Enoxaparin Sodium 40 mg 02/06/22 22:00 02/19/22 22:01 Enoxaparin 40 Mg/0.4 Ml Inj SUB-Q 40 mg QDAY@2200 NESTOR Administration Protocol Famotidine 20 mg 02/12/22 10:00 02/19/22 22:00 Famotidine 20 Mg Tab PO 20 mg BID NESTOR Administration Hydrophilic Ointment 1 applic 02/07/22 10:55 Lip Therapy Vaseline TP Q2HR PRN Dry Lips Multi-Ingred Cream/Lotion/Oil/Oint 1 applic 02/07/22 10:55 Mineral Oil/Petrolatum, White Ophth Oint 3.5 Gm OU Q4HR PRN Dry Eye(s) Mycophenolate Mofetil 1,000 mg 02/12/22 10:00 02/19/22 22:00 Mycophenolate 1000 Mg/5 Ml Oral Liqd PO 1,000 mg BID NESTOR Administration Ondansetron HCl 4 mg 02/08/22 17:00 02/10/22 18:25 Ondansetron 4 Mg/2 Ml Inj IV 4 mg Q8H PRN Administration Nausea And Vomiting Oxycodone/Acetaminophen 1 tab 02/06/22 15:00 02/20/22 04:19 Oxycodone /Acetaminophen 5-325mg Tab PO 1 tab Q16H PRN Administration Pain, Moderate (4-6) Prednisone 80 mg 02/15/22 12:00 02/19/22 11:02 Prednisone 20 Mg Tab PO 80 mg QDAY NESTOR Administration Pyridostigmine [place] 180 mg 02/08/22 10:00 02/19/22 11:02 Pyridostigmine [place] 60 Mg Tab PO 180 mg DAILY NESTOR Administration Senna/Docusate Sodium 1 tab 02/12/22 10:00 02/19/22 22:00 Sennosides/Docusate Sodium 8.6/50 Mg Tab PO 1 tab BID NESTOR Administration Sodium Chloride 10 ml 02/06/22 22:00 02/20/22 04:20 Sodium Chloride 0.9% 10 Ml Flush Syringe IV 10 ml BID NESTOR Administration Sodium Chloride 10 ml 02/06/22 13:59 Sodium Chloride 0.9% 10 Ml Flush Syringe IV PRN PRN LINE FLUSH Nutrition/Malnutrition Assess - Dietary Evaluation Nutrition/Malnutrition Findings: Nutrition Notes Start: 02/07/22 13:09 Freq: Status: Active Protocol: Document 02/12/22 15:28 LATOYA (Rec: 02/12/22 15:44 LATOYA [id number]) Nutrition Notes Initial or Follow up Reassessment Other Pertinent Diagnosis Myasthenia gravis crisis Current Diet [facility] soft with chopped meats Labs/Tests Reviewed Pertinent Medications Reviewed Height 5 ft 10 in Weight 102.194 kg Burgin Body Weight (kg) 75.45 BMI 32.3 Weight Status Obese Subjective/Other Information Pt extubated on 02/09. Per [employer] evaluation on 02/11, pt tolerated [facility] soft diet with chopped meats/gravy on meats. Observed consumption of 100% of entree for lunch today. He says the green beans and fruit cup contains too much magnesium for him; he avoids foods containing >10mg of magnesium. Burn Absent Trauma Absent #1 Nutrition Diagnosis Inadequate oral intake As Evidenced by Signs and Symptoms pt tolerating PO diet Diagnosis Progress(for reassessment Improved documentation) Is patient on ventilator? No Is Patient Ambulatory and/or Out of Bed No REE-([facility]-confined to bed) 2352.060 Kcal/Kg value to use for calculation 18 Approximate Energy Requirements Using 1839 kcal/Kg Calculation Used for Recommendations Kcal/kg Additional Notes Pro needs 0.8-1g/kg adjBW: 71- 89g/day Fluid needs 1ml/kcal Nutrition Intervention Change Diet Order: Continue current diet order Goal #1 PO intake to meet at least 75% energy and pro needs Follow-Up By: 02/20/22 Additional Comments F/U: intakes, wt
--- NOTE | 2022-02-12 13:33 | Progress Note ---
Assessment and Plan Myasthenic crisis Obesity Possible ANTON / OHS Blurry vision Mild hypokalemia Mild metabolic acidosis - transitioning to scheduled qhs BIPAP with prn use during the day - CT Chest negqative for thymoma - completed IVIG treatments - prn NIF (MIP) & VC maneuver - continue care as below; - avoid aminoglycosides, flouroquinolones etc - neurology evaluation appreciated - continue accuchecks with glycemic control per SSI for target blood glucose of < 180 mg/dL; avoid hypoglycemia - continue to wean supplemental oxygen for target O2 sat's > 90% acutely - aspiration precautions - prn bronchodilators with pulmonary hygiene per RT - avoid nephrotoxins, renally dose all medications - continue to avoid benzodiazepine's, reduce the possibility of delirium - AB's per ID rec's - prn analgesia per pain score - Maintenance of sleep-wake cycle, avoid delirium - G.I. & VTE prophylaxis - PT/OT/ROM exercises - mobility protocols for pressure ulcer prophylaxis - Monitor hemodynamics closely - continue other care per attending / other consultants - discharge planning ongoing concurrently .... Re-evaluate in am & prn Subjective Date of service: 02/12/22 Principal diagnosis: Myasthenic crisis; Obesity; Possible ANTON/OHS; Blurry vision; Hypokalemia Interval history: Patient is seen today for: Myasthenic crisis; Obesity; Possible ANTON / OHS; Blurry vision; Mild hypokalemia; Mild metabolic acidosis Seen and examined at bedside; 24hour events reviewed; nursing and respiratory care staff consulted; no adverse overnight events reported to me; resting in bed; doing well so far post extubation; feels stronger but still wityh daytime BIPAP use; denies N/V/F/C; no diplopia or dysphonia Objective Vital Signs - 12hr 02/12/22 02/12/22 02/12/22 02:00 03:00 03:33 Temperature Pulse Rate 63 52 L 43 L Pulse Rate [ From Monitor] Respiratory 17 14 Rate Blood Pressure 111/73 111/73 O2 Sat by Pulse 99 100 Oximetry 02/12/22 02/12/22 02/12/22 03:34 03:55 04:00 Temperature 97.6 F Pulse Rate 48 L Pulse Rate [ From Monitor] Respiratory 16 Rate Blood Pressure 112/70 O2 Sat by Pulse 100 100 Oximetry 02/12/22 02/12/22 02/12/22 04:01 05:00 06:00 Temperature Pulse Rate 43 L 47 L 60 Pulse Rate [ From Monitor] Respiratory 15 16 18 Rate Blood Pressure 112/70 107/65 109/69 O2 Sat by Pulse 100 100 100 Oximetry 02/12/22 02/12/22 02/12/22 07:00 07:56 07:58 Temperature 97.7 F Pulse Rate 44 L 49 L Pulse Rate [ 66 From Monitor] Respiratory 16 Rate Blood Pressure 115/74 O2 Sat by Pulse 100 100 Oximetry 02/12/22 02/12/22 02/12/22 08:00 09:00 10:00 Temperature Pulse Rate 76 98 H 79 Pulse Rate [ From Monitor] Respiratory 12 19 24 Rate Blood Pressure 128/84 126/74 119/73 O2 Sat by Pulse 98 100 100 Oximetry 02/12/22 02/12/22 02/12/22 11:00 11:39 12:00 Temperature 97.9 F Pulse Rate 59 L 81 79 Pulse Rate [ 81 From Monitor] Respiratory 17 17 Rate Blood Pressure 126/81 152/88 O2 Sat by Pulse 100 98 Oximetry 02/12/22 13:00 Temperature Pulse Rate 61 Pulse Rate [ From Monitor] Respiratory 12 Rate Blood Pressure 104/54 O2 Sat by Pulse 98 Oximetry Constitutional: no acute distress Eyes: non-icteric ENT: oropharynx moist Neck: supple, no lymphadenopathy, no JVD, other (large circumference) Effort: normal Ascultation: Bilateral: clear, diminished breath sounds Percussion: Bilateral: not dull Cardiovascular: regular rate and rhythm Gastrointestinal: normoactive bowel sounds, soft, non-tender, non-distended (protuberant) Integumentary: normal Extremities: no cyanosis, no edema, pulses normal, no ischemia or petechiae Neurologic: non-focal exam (grossly), pupils equal and round, CN II-XII normal, other (power 4-5/5 bilaterally) Psychiatric: mood appropriate, affect normal CBC and BMP: 02/12/22 04:25 02/12/22 04:25 ABG, PT/INR, D-dimer: ABG ABG pH 7.333 pH Units (7.350-7.450) L 02/08/22 09:20 ABG pCO2 48.2 mm Hg 02/08/22 09:20 ABG pO2 114.7 mm Hg (80.0-90.0) H 02/08/22 09:20 ABG O2 Saturation 97.9 % (95.0-99.0) 02/08/22 09:20 Abnormal lab findings: Abnormal Labs 02/06/22 02/06/22 02/06/22 12:39 12:39 13:59 WBC RBC 5.75 H Hgb Hct MCV 74 L MCH 23 L MCHC 30 L RDW 16.9 H Lymph % (Auto) 6.4 L [place] % (Auto) Lymph # (Auto) 0.5 L Seg Neutrophils % 89.3 H ABG pH ABG pO2 ABG Hemoglobin 12.6 L Oxyhemoglobin Potassium 3.5 L Chloride 109.1 H Carbon Dioxide 20 L Creatinine 0.7 L Glucose 113 H 02/07/22 02/07/22 02/08/22 04:15 12:00 04:23 WBC RBC 5.10 H Hgb 11.5 L 11.0 L Hct MCV 72 L 74 L MCH 23 L 22 L MCHC 30 L RDW 17.3 H 17.1 H Lymph % (Auto) [place] % (Auto) 9.1 H Lymph # (Auto) Seg Neutrophils % ABG pH ABG pO2 72.6 L ABG Hemoglobin 12.2 L Oxyhemoglobin 94.4 L Potassium Chloride Carbon Dioxide Creatinine Glucose 02/08/22 02/08/22 02/09/22 04:23 09:20 04:50 WBC RBC Hgb 10.4 L Hct 33.7 L MCV 73 L MCH 22 L MCHC 31 L RDW 17.5 H Lymph % (Auto) [place] % (Auto) Lymph # (Auto) Seg Neutrophils % ABG pH 7.333 L ABG pO2 114.7 H ABG Hemoglobin 11.1 L Oxyhemoglobin Potassium Chloride 109.3 H Carbon Dioxide Creatinine 0.6 L Glucose 02/09/22 02/10/22 02/11/22 04:50 04:50 04:38 WBC 4.4 L 3.3 L RBC Hgb 10.1 L 10.4 L Hct 32.9 L 33.6 L MCV 73 L 73 L MCH 22 L 23 L MCHC 31 L 31 L RDW 17.2 H 17.0 H Lymph % (Auto) [place] % (Auto) Lymph # (Auto) Seg Neutrophils % ABG pH ABG pO2 ABG Hemoglobin Oxyhemoglobin Potassium Chloride Carbon Dioxide Creatinine Glucose 107 H 02/11/22 02/12/22 04:38 04:25 WBC 3.7 L RBC Hgb 10.5 L Hct 34.5 L MCV 73 L MCH 22 L MCHC 30 L RDW 16.9 H Lymph % (Auto) [place] % (Auto) Lymph # (Auto) Seg Neutrophils % ABG pH ABG pO2 ABG Hemoglobin Oxyhemoglobin Potassium Chloride Carbon Dioxide Creatinine 0.7 L Glucose 101 H Allied health notes reviewed: nursing
[2022-02-12] MEDS: ENOXAPARIN 40 MG/0.4 ML INJ SUB-Q SCH (21:02)
[2022-02-13 05:01] LABS: Mean Corpuscular HGB Conc 30 % (32-34); Mean Corpuscular Volume 73 fl (84-94); Platelet Count 192 K/mm3 (140-440); Red Blood Count 4.95 M/mm3 (3.65-5.03); Red Cell Distribution Width 17.5 % (13.2-15.2)
[2022-02-13 05:02] LABS: Hematocrit 35.9 % (35.5-45.6); Hemoglobin 10.8 gm/dl (11.8-15.2)
[2022-02-13 05:20] LABS: BUN/Creatinine Ratio 11; Blood Urea Nitrogen 9 mg/dL (9-20); Calcium 9.1 mg/dL (8.4-10.2); Hemolysis Index 11
[2022-02-13] MEDS: PYRIDOSTIGMINE BROMIDE 60 MG TAB PO SCH (09:19)
[2022-02-13] MEDS: FAMOTIDINE 20 MG TAB PO SCH ×2 (09:19→21:25)
[2022-02-13] MEDS: SENNOSIDES/DOCUSATE SODIUM 8.6/50 MG TAB PO SCH ×2 (09:19→21:25)
[2022-02-13] MEDS: MYCOPHENOLATE PO SCH ×2 (09:20→21:25)
[2022-02-13] MEDS: predniSONE 10 MG TAB PO SCH (09:20)
--- NOTE | 2022-02-13 12:48 | Progress Note ---
Assessment and Plan Myasthenic crisis, s/p MVS Obesity Possible ANTON / OHS Blurry vision Mild hypokalemia-resolved Mild metabolic acidosis-resolved -Continue immunosuppresants- prednisone 40 mg po daily. Continue pyridostigmine and cellcept. - avoid aminoglycosides, flouroquinolones -keep potassium at 4, Mag at 2 and Phos at >2.5 - continue to titrate supplemental oxygen to keep SpO2 90-92% - CPAP qhs and prn - continue bronchodilators with pulmonary hygiene per RT - continue accuchecks with glycemic control per SSI (While critically ill target blood glucose of 140-180 mg/dL; avoid hypoglycemia) - avoid nephrotoxins, renally dose all medications - continue to avoid benzodiazepines, reduce the possibility of delirium - prn analgesia per CPOT score - Maintenance of sleep-wake cycle, avoid delirium - VTE prophylaxis- Heparin - continue other care per attending / other consultants CONDITION: FAIR PROGNOSIS: GUARDED CODE STATUS: FULL CODE Subjective Date of service: 02/13/22 Principal diagnosis: Myasthenic crisis; Obesity; Possible ANTON/OHS; Blurry vision; Hypokalemia Interval history: Patient is seen today for: Myasthenic crisis; Obesity; Possible ANTON / OHS; Blurry vision; Mild hypokalemia; Mild metabolic acidosis Seen and examined at bedside; 24hour events reviewed; nursing and respiratory care staff consulted; no adverse overnight events reported to me; resting in bed; denies N/V/F/C; awake and alert, weakness much improved, he can clear secretions, swallowing well. Some subjective increase in weakness reported. Prednisone was increased by primary service Objective Vital Signs - 12hr 02/13/22 02/13/22 02/13/22 01:00 02:00 03:00 Temperature Pulse Rate 49 L 54 L 39 L Pulse Rate [ From Monitor] Respiratory 15 17 17 Rate Blood Pressure 141/72 141/72 149/70 O2 Sat by Pulse 100 100 100 Oximetry 02/13/22 02/13/22 02/13/22 04:00 04:50 05:00 Temperature 98.4 F Pulse Rate 37 L 42 L 40 L Pulse Rate [ From Monitor] Respiratory 17 17 17 Rate Blood Pressure 122/50 122/50 120/60 O2 Sat by Pulse 100 100 100 Oximetry 02/13/22 02/13/22 02/13/22 06:00 07:00 07:18 Temperature Pulse Rate 43 L 42 L 42 L Pulse Rate [ From Monitor] Respiratory 14 17 Rate Blood Pressure 120/60 126/54 O2 Sat by Pulse 100 100 Oximetry 02/13/22 02/13/22 02/13/22 07:22 08:00 09:00 Temperature 98.4 F Pulse Rate 77 57 L Pulse Rate [ 79 From Monitor] Respiratory 15 21 Rate Blood Pressure 126/54 147/78 O2 Sat by Pulse 97 98 Oximetry 02/13/22 02/13/22 02/13/22 10:00 11:00 11:27 Temperature Pulse Rate 76 62 56 L Pulse Rate [ From Monitor] Respiratory 17 22 Rate Blood Pressure 147/66 147/66 O2 Sat by Pulse 91 97 Oximetry 02/13/22 02/13/22 02/13/22 11:40 12:00 12:05 Temperature 98.7 F Pulse Rate 72 70 Pulse Rate [ From Monitor] Respiratory 16 Rate Blood Pressure 146/66 163/72 O2 Sat by Pulse 100 98 Oximetry 02/13/22 12:30 Temperature Pulse Rate 68 Pulse Rate [ From Monitor] Respiratory 14 Rate Blood Pressure 146/66 O2 Sat by Pulse 98 Oximetry Constitutional: no acute distress, alert Eyes: non-icteric ENT: oropharynx moist Neck: supple, no lymphadenopathy, no JVD, other (large circumference) Effort: normal Ascultation: Bilateral: clear, diminished breath sounds Percussion: Bilateral: not dull Cardiovascular: regular rate and rhythm, other (S1,S2) Gastrointestinal: normoactive bowel sounds, soft, non-tender, non-distended (protuberant) Integumentary: normal Extremities: no cyanosis, no edema, pulses normal, no ischemia or petechiae Neurologic: non-focal exam (grossly), pupils equal and round, CN II-XII normal, other (power 4-5/5 bilaterally) Psychiatric: mood appropriate, affect normal CBC and BMP: 02/13/22 04:17 02/13/22 04:17 ABG, PT/INR, D-dimer: ABG ABG pH 7.333 pH Units (7.350-7.450) L 02/08/22 09:20 ABG pCO2 48.2 mm Hg 02/08/22 09:20 ABG pO2 114.7 mm Hg (80.0-90.0) H 02/08/22 09:20 ABG O2 Saturation 97.9 % (95.0-99.0) 02/08/22 09:20 Abnormal lab findings: Abnormal Labs 02/06/22 02/06/22 02/06/22 12:39 12:39 13:59 WBC RBC 5.75 H Hgb Hct MCV 74 L MCH 23 L MCHC 30 L RDW 16.9 H Lymph % (Auto) 6.4 L [place] % (Auto) Lymph # (Auto) 0.5 L Seg Neutrophils % 89.3 H ABG pH ABG pO2 ABG Hemoglobin 12.6 L Oxyhemoglobin Potassium 3.5 L Chloride 109.1 H Carbon Dioxide 20 L Creatinine 0.7 L Glucose 113 H 02/07/22 02/07/22 02/08/22 04:15 12:00 04:23 WBC RBC 5.10 H Hgb 11.5 L 11.0 L Hct MCV 72 L 74 L MCH 23 L 22 L MCHC 30 L RDW 17.3 H 17.1 H Lymph % (Auto) [place] % (Auto) 9.1 H Lymph # (Auto) Seg Neutrophils % ABG pH ABG pO2 72.6 L ABG Hemoglobin 12.2 L Oxyhemoglobin 94.4 L Potassium Chloride Carbon Dioxide Creatinine Glucose 02/08/22 02/08/22 02/09/22 04:23 09:20 04:50 WBC RBC Hgb 10.4 L Hct 33.7 L MCV 73 L MCH 22 L MCHC 31 L RDW 17.5 H Lymph % (Auto) [place] % (Auto) Lymph # (Auto) Seg Neutrophils % ABG pH 7.333 L ABG pO2 114.7 H ABG Hemoglobin 11.1 L Oxyhemoglobin Potassium Chloride 109.3 H Carbon Dioxide Creatinine 0.6 L Glucose 02/09/22 02/10/22 02/11/22 04:50 04:50 04:38 WBC 4.4 L 3.3 L RBC Hgb 10.1 L 10.4 L Hct 32.9 L 33.6 L MCV 73 L 73 L MCH 22 L 23 L MCHC 31 L 31 L RDW 17.2 H 17.0 H Lymph % (Auto) [place] % (Auto) Lymph # (Auto) Seg Neutrophils % ABG pH ABG pO2 ABG Hemoglobin Oxyhemoglobin Potassium Chloride Carbon Dioxide Creatinine Glucose 107 H 06/02/12/22 02/13/22 04:38 04:25 04:17 WBC 3.7 L 3.5 L RBC Hgb 10.5 L 10.8 L Hct 34.5 L MCV 73 L 73 L MCH 22 L 22 L MCHC 30 L 30 L RDW 16.9 H 17.5 H Lymph % (Auto) [place] % (Auto) Lymph # (Auto) Seg Neutrophils % ABG pH ABG pO2 ABG Hemoglobin Oxyhemoglobin Potassium Chloride Carbon Dioxide Creatinine 0.7 L Glucose 101 H Allied health notes reviewed: nursing
--- NOTE | 2022-02-13 14:35 | Progress Note ---
Assessment and Plan Assessment and plan: History Interval history: This is 36 year old male with Myasthenia Gravis (currently taking Cellcept, Mycophenolate, and Prednisone), ANTON (uses home CPAP) and obesity who presented to the emergency department on 02/06 with complaints of generalized weakness of the past day with worsening symptoms over the same timeframe via EMS. On hospitalist examination patient reported he was able to walk earlier during the day however at the time of evaluation, patient was unable to walk and unable to lift or feel his lower extremities and acknowledged upper extremity weakness and difficulty speaking. Patient was found to have myasthenia gravis crisis and was admitted to the ICU for risk of worsening symptoms. In the emergency department patient was placed on NIPPV and IVIG was ordered. Patient was admitted to the hospital service with Myasthenia Gravis crisis with consults to CCM and neurology Hospital Course to Date: 02/07: S/p X1 dose of IV IG overnight, patient reported feeling much better and stronger this am, moving all extremities. Plan to wean off Bipap this am. Okay to start a diet if patient pass bedside swallow. D/W CCM plan for CT chest w con tomorrow to r/o thymoma. Neurology consulted. 02/08: S/p emergent intubattion by cipriano yesterday. Now intubated and sedated, RASS -2. Neurology recommendations noted. Resumed home meds. Will wean off sedation this am for possible SAT/SBT. CT chest also noted with no evidence of thymoma. Continue IVIG. Attending received call back from [facility]. Transfer was declined, no available ICU beds at this time. They recommend continuing IVIG and possible plasma exchange. Awaiting on Neurology final recommendations. 02/09: S/p Extubation this am. Desated to 85% on 3L NC, SPO2 improved to 88% on 8L NC. This am CXR noted, worsen opacity of the left side. CCM at the bedside, X1 dose of IV Lasix ordered and place patient on Bipap. Low Threshold for reintubation. Plan of care and the high probability for reintubation was discussed with patient at the bedside. Patient verbalized understanding and agree with current care plan. Continue IVIG, Awaiting on Neurology final haider mmendations. 02/10: Tolerated Bipap, now on 2L NC this am, SPO2 at 100%. No s/s of any acute respiratory distress noted. This am CXR also noted with significant improvement. Continue IVIGm and Bipap at night. Incentive Spirometer also ordered. advance diet as tolerated. PT/OT/Speech consulted. 02/11: Completed x5days of IVIG overnight. Stable on RA, still complaining of generalized weakness, other stable. Diet advanced to solid this am, patient is tolerating it. Continue IS and Bipap at night. Encourage mobility as tolerated, PT/OT/Speech consult pending. 02/12: CPAP prn, currently on RA. Improved strength to BLE and BUE per patient. 02/13: Increased weakness reported on encounter. increased steroid dose to prednisone 40 mg po daily. Continue pyridostigmine and cellcept. Possible d/c tomorrow. 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 Billie Delgado) -Neurology consulted, appreciate recommendations -s/p IVIG x 5 days -Restarted home prednisone, cellcept, mestinon -Reorientation as needed -Maintain sleep-wake cycle -As needed analgesia -Transfer to [facility] was declined, no available ICU beds at this time. 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 -CCM consulted, appreciate recommendations -Intubated on 02/07 in the ED with 7.5 OETT at 20 at the teeth for difficulty breathing and noted to be drooling and extubated 02/09 -BiPAP q hs and prn -CT chest w con showed no evidence of thymoma -Pulmonary hygiene bundle -SPO2 monitoring GI: Hepatic Hemangiomas -noted on CT chest -24 hours -1350 mL -ST recommends mechanical soft with chopped meat and gravy applied on top of meat with thin liquid -PPI -BR: Senokot S -Outpatient follow up for US and further workup : NAD -Monitor intake and output -Renally dose medications -Trend BMP prn ID: NAD -f/u blood culture -Monitor WBC and temperature curve Endo: NAD -Avoid hypoglycemia Heme: Leukopenia -Trend CBC -Transfuse hemoglobin less than 7 -SCDs to BLE while in bed The high probability of a clinically significant, sudden or life threatening deterioration of the [neuro/resp] system(s) required my full and direct attention, intervention and personal management. The aggregate critical care time was [60] minutes. This time is in addition to time spent performing reported procedures but includes the following: [x] Data Review and interpretation [x] Patient assessment and monitoring of vital signs [x] Documentation [x] Medication orders and management Disposition Plan: imcu Total Time Spent with Patient (Minutes): 60 History Interval history: Patient resting comfortably on encounter. In no acute distress. States that she has Hospitalist Physical - Physical exam Narrative exam: General appearance: Present: no acute distress, well-nourished, obese - EENT Eyes: Present: PERRL (drooping eyelid right side) ENT: dentition normal, hearing decreased - Neck Neck: Present: normal ROM - Respiratory Respiratory effort: normal Respiratory: bilateral: diminished - Cardiovascular Rhythm: regular Heart Sounds: Present: S1 & S2. Absent: systolic murmur, diastolic murmur - Extremities Extremities: no ischemia, pulses intact, pulses symmetrical, No edema, normal temperature, normal color Peripheral Pulses: within normal limits - Abdominal General gastrointestinal: soft, non-tender, non-distended, normal bowel sounds - Integumentary Integumentary: Present: warm, dry - Psychiatric Psychiatric: appropriate mood/affect, cooperative - Neurologic Neurologic: no focal deficits, moves all extremities - Allied Health Allied health notes reviewed: nursing, RT, social work - Constitutional Vitals: Temp Pulse Resp BP Pulse Ox 98.7 F 64 17 115/58 100 02/13/22 12:05 02/13/22 14:30 02/13/22 14:30 02/13/22 14:30 02/13/22 14:30 General appearance: Present: no acute distress, well-nourished, obese Results - Labs CBC & Chem 7: 02/13/22 04:17 02/13/22 04:17 Labs: Laboratory Last Values WBC 3.5 K/mm3 (4.5-11.0) L 02/13/22 04:17 RBC 4.95 M/mm3 (3.65-5.03) 02/13/22 04:17 Hgb 10.8 gm/dl (11.8-15.2) L 02/13/22 04:17 Hct 35.9 % (35.5-45.6) 02/13/22 04:17 MCV 73 fl (84-94) L 02/13/22 04:17 MCH 22 pg (28-32) L 02/13/22 04:17 MCHC 30 % (32-34) L 02/13/22 04:17 RDW 17.5 % (13.2-15.2) H 02/13/22 04:17 Plt Count 192 K/mm3 (140-440) 02/13/22 04:17 Lymph % (Auto) 29.4 % (13.4-35.0) 02/07/22 04:15 [place] % (Auto) 9.1 % (0.0-7.3) H 02/07/22 04:15 Eos % (Auto) 0.4 % (0.0-4.3) 02/07/22 04:15 Baso % (Auto) 0.7 % (0.0-1.8) 02/07/22 04:15 Lymph # (Auto) 1.7 K/mm3 (1.2-5.4) 02/07/22 04:15 [place] # (Auto) 0.5 K/mm3 (0.0-0.8) 02/07/22 04:15 Eos # (Auto) 0.0 K/mm3 (0.0-0.4) 02/07/22 04:15 Baso # (Auto) 0.0 K/mm3 (0.0-0.1) 02/07/22 04:15 Seg Neutrophils % 60.4 % (40.0-70.0) 02/07/22 04:15 Seg Neutrophils # 3.6 K/mm3 (1.8-7.7) 02/07/22 04:15 ABG pH 7.333 pH Units (7.350-7.450) L 02/08/22 09:20 ABG pCO2 48.2 mm Hg 02/08/22 09:20 ABG pO2 114.7 mm Hg (80.0-90.0) H 02/08/22 09:20 ABG HCO3 25.0 mmol/L (20.0-26.0) 02/08/22 09:20 ABG O2 Saturation 97.9 % (95.0-99.0) 02/08/22 09:20 ABG O2 Content 15.1 (0.0-44) 02/08/22 09:20 ABG Base Excess -1.1 mmol/L (-2.0-3.0) 02/08/22 09:20 ABG Hemoglobin 11.1 gm/dl (14.0-18.0) L 02/08/22 09:20 ABG Carboxyhemoglobin 1.4 % (0.0-5.0) 02/08/22 09:20 ABG Methemoglobin 0.5 % (0.0-1.5) 02/08/22 09:20 Oxyhemoglobin 96.1 % (95.0-99.0) 02/08/22 09:20 FiO2 35 % 02/08/22 09:20 Sodium 141 mmol/L (137-145) 02/13/22 04:17 Potassium 4.3 mmol/L (3.6-5.0) 02/13/22 04:17 Chloride 105.3 mmol/L (98-107) 02/13/22 04:17 Carbon Dioxide 30 mmol/L (22-30) 02/13/22 04:17 Anion Gap 10 mmol/L 02/13/22 04:17 BUN 9 mg/dL (9-20) 02/13/22 04:17 Creatinine 0.8 mg/dL (0.8-1.3) 02/13/22 04:17 Estimated GFR > 60 ml/min 02/13/22 04:17 BUN/Creatinine Ratio 11 % 02/13/22 04:17 Glucose 89 mg/dL (75-100) 02/13/22 04:17 Calcium 9.1 mg/dL (8.4-10.2) 02/13/22 04:17 Total Bilirubin 0.40 mg/dL (0.1-1.2) 02/07/22 04:15 AST 9 units/L (5-40) 02/07/22 04:15 ALT 11 units/L (7-56) 02/07/22 04:15 Alkaline Phosphatase 75 units/L (35-129) 02/07/22 04:15 Total Protein 7.0 g/dL (6.3-8.2) 02/07/22 04:15 Albumin 4.0 g/dL (3.9-5) 02/07/22 04:15 Albumin/Globulin Ratio 1.3 % 02/07/22 04:15 [place]/IV: Voiding Method Urinal Active Medications - Current Medications Current Medications: Generic Name Dose Route Start Last Admin Trade Name Freq PRN Reason Stop Dose Admin Acetaminophen 650 mg 02/06/22 15:00 02/10/22 18:11 Acetaminophen 325 Mg Tab PO 650 mg Q6H PRN Administration Pain MILD(1-3)/Fever >100.5/[place] Albuterol 2.5 mg 02/06/22 15:00 Albuterol 2.5 Mg/3 Ml Nebu IH Q3HRT PRN Shortness Of Breath Enoxaparin Sodium 40 mg 02/06/22 22:00 02/12/22 21:02 Enoxaparin 40 Mg/0.4 Ml Inj SUB-Q 40 mg QDAY@2200 NESTOR Administration Protocol Famotidine 20 mg 02/12/22 10:00 02/13/22 09:19 Famotidine 20 Mg Tab PO 20 mg BID NESTOR Administration Hydrophilic Ointment 1 applic 02/07/22 10:55 Lip Therapy Vaseline TP Q2HR PRN Dry Lips Multi-Ingred Cream/Lotion/Oil/Oint 1 applic 02/07/22 10:55 Mineral Oil/Petrolatum, White Ophth Oint 3.5 Gm OU Q4HR PRN Dry Eye(s) Mycophenolate Mofetil 1,000 mg 02/12/22 10:00 02/13/22 09:20 Mycophenolate 1000 Mg/5 Ml Oral Liqd PO 1,000 mg BID NESTOR Administration Ondansetron HCl 4 mg 02/08/22 17:00 02/10/22 18:25 Ondansetron 4 Mg/2 Ml Inj IV 4 mg Q8H PRN Administration Nausea And Vomiting Oxycodone/Acetaminophen 1 tab 02/06/22 15:00 Oxycodone /Acetaminophen 5-325mg Tab PO Q16H PRN Pain, Moderate (4-6) Prednisone 10 mg 02/08/22 10:00 02/13/22 09:20 Prednisone 10 Mg Tab PO 10 mg QDAY NESTOR Administration Pyridostigmine [place] 180 mg 02/08/22 10:00 02/13/22 09:19 Pyridostigmine [place] 60 Mg Tab PO 180 mg DAILY NESTOR Administration Senna/Docusate Sodium 1 tab 02/12/22 10:00 02/13/22 09:19 Sennosides/Docusate Sodium 8.6/50 Mg Tab PO 1 tab BID NESTOR Administration Sodium Chloride 10 ml 02/06/22 22:00 02/13/22 09:19 Sodium Chloride 0.9% 10 Ml Flush Syringe IV 10 ml BID NESTOR Administration Sodium Chloride 10 ml 02/06/22 13:59 Sodium Chloride 0.9% 10 Ml Flush Syringe IV PRN PRN LINE FLUSH Nutrition/Malnutrition Assess - Dietary Evaluation Nutrition/Malnutrition Findings: Nutrition Notes Start: 02/07/22 13:09 Freq: Status: Active Protocol: Document 02/12/22 15:28 LATOYA (Rec: 02/12/22 15:44 LATOYA [email or web address]) Nutrition Notes Initial or Follow up Reassessment Other Pertinent Diagnosis Myasthenia gravis crisis Current Diet Mech soft with chopped meats Labs/Tests Reviewed Pertinent Medications Reviewed Height 5 ft 10 in Weight 102.194 kg [place] Body Weight (kg) 75.45 BMI 32.3 Weight Status Obese Subjective/Other Information Pt extubated on 02/09. Per JALOUSIE INSTALLER evaluation on 02/11, pt tolerated mech soft diet with chopped meats/gravy on meats. Observed consumption of 100% of entree for lunch today. He says the green beans and fruit cup contains too much magnesium for him; he avoids foods containing >10mg of magnesium. Burn Absent Trauma Absent #1 Nutrition Diagnosis Inadequate oral intake As Evidenced by Signs and Symptoms pt tolerating PO diet Diagnosis Progress(for reassessment Improved documentation) Is patient on ventilator? No Is Patient Ambulatory and/or Out of Bed No REE-([facility]-confined to bed) 2352.060 Kcal/Kg value to use for calculation 18 Approximate Energy Requirements Using 1839 kcal/Kg Calculation Used for Recommendations Kcal/kg Additional Notes Pro needs 0.8-1g/kg adjBW: 71- 89g/day Fluid needs 1ml/kcal Nutrition Intervention Change Diet Order: Continue current diet order Goal #1 PO intake to meet at least 75% energy and pro needs Follow-Up By: 02/20/22 Additional Comments F/U: intakes, wt
[2022-02-13] MEDS: predniSONE 20 MG TAB PO SCH (16:26)
[2022-02-13] MEDS: ENOXAPARIN 40 MG/0.4 ML INJ SUB-Q SCH (21:25)
--- NOTE | 2022-02-14 08:00 | Progress Note ---
Assessment and Plan 36 YO Male with MG currently taking Cellcept, Mycophenolate, and Prednisone presents ED for evaluation. Patient states that he had experienced generalized weakness over the past 1 day with progressive and worsening symptoms over the same timeframe. Patient states that he was able to walk earlier today but he is unable to walk. Patient also acknowledges upper extremity weakness as well as difficulty speaking. EMS was notified and upon arrival the patient was found to be in distress and subsequently transported to [facility] for further care and evaluation of the aforementioned symptoms. The patient was seen and evaluated in the emergency department. All lab and imaging studies reviewed. Patient found to have myasthenia gravis crisis with increased risk for worsening symptoms as well as development of acute hypoxemic respiratory failure. Patient placed on noninvasive positive pressure ventilation in the emergency department and admitted to ICU. IVIG ordered in the emergency department. Patient denies fever, chills, chest pain, palpitation productive cough, skin rash and recent Contact, known exposure to COVID-19. Patient eventually intubated and placed on mechanical ventilation. Patient extubated now. Patient has history vaping 2 times a day x 14 years. Stopped vaping 3 years ago. Denies alcohol abuse. Used Marijuna in his teenage years. Not used Marijuana for long time. 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 Not . Has no children. No known drug allergies. Patient has history of Sleep apnea. Uses CPAP 12 cm H2O during night time. Patient Obese, awake, resting on room air. O2 saturation 100%. No acute respiratory distress at rest. Says feeling weak and light headed. Patient afebrile. No leukocytosis, Blood pressure 140/71, rate 78 respirations 12. Chest xray 02/10/22 Previous density of the left has almost completely cleared with only minimal basilar atelectasis remaining. Right lung field clear. No pneumothorax. CT scan of chest 02/08/[address] evidence of thymoma. Hypoattenuating lesions of the liver statistically reflect hepatic hemangiomas. One of these lesions demonstrate characteristic peripheral puddling of contrast, the second does not clearly demonstrate specific pattern of enhancement. Ultrasound targeting these lesions may be useful for further characterization and confirmation of hemangioma. Moderate subsegmental atelectasis of the bilateral lungs. Satisfactory positioning of endotracheal tube and esophagogastric tube. Patient is on Po Prednisone, Albuterolinhaler, S/C Lovenox and famotidine. I spent critical care time of 35 minutes in obtaining history, review the chart, Examining the patient, review xrays, lab results, talking to the nursing staff , respiratory therapy and work up plan of treatment. - Patient Problems (1) Acute hypoxemic respiratory failure Current Visit: Yes Status: Acute Plan to address problem: CPAP during night time. Continue prednisone. Continue S/C Lovenox. Continue famotidine. Albuterol inhaler prn for shortness of breath. (2) Obesity Current Visit: Yes Status: Acute Qualifiers: Body mass index: BMI 33.0-33.9 Plan to address problem: Counseled to loose weight Exercise and diet. (3) Sleep apnea Current Visit: Yes Status: Acute Plan to address problem: Patient says he has history of sleep apnea. No sleep study results available at this time. Continue CPAP as she is using at home. Recommend to loose weight. Explained sleep hygiene. Recommend not to drive or operate heavy equipment with sleepiness. Avoid alcohol, sedatives and Narcotics If sleep study is while back, recommend to repeat sleep study as out patient. (4) Myasthenia gravis Current Visit: Yes Status: Acute Plan to address problem: Management as per primary care and neurology. Subjective Date of service: 02/14/22 Principal diagnosis: Myasthenic crisis; Obesity; Possible ANTON/OHS; Blurry vision; Hypokalemia Interval history: 36 YO Male with MG currently taking Cellcept, Mycophenolate, and Prednisone presents ED for evaluation. Patient states that he had experienced generalized weakness over the past 1 day with progressive and worsening symptoms over the same timeframe. Patient states that he was able to walk earlier today but he is unable to walk. Patient also acknowledges upper extremity weakness as well as difficulty speaking. EMS was notified and upon arrival the patient was found to be in distress and subsequently transported to [facility] for further care and evaluation of the aforementioned symptoms. The patient was seen and evaluated in the emergency department. All lab and imaging studies reviewed. Patient found to have myasthenia gravis crisis with increased risk for worsening symptoms as well as development of acute hypoxemic respiratory failure. Patient placed on noninvasive positive pressure ventilation in the emergency department and admitted to ICU. IVIG ordered in the emergency department. Patient denies fever, chills, chest pain, palpitation productive cough, skin rash and recent Contact, known exposure to COVID-19. Patient eventually intubated and placed on mechanical ventilation. Patient extubated now. Patient has history vaping 2 times a day x 14 years. Stopped vaping 3 years ago. Denies alcohol abuse. Used Marijuna in his teenage years. Not used Marijuana for long time. 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 Not . Has no children. No known drug allergies. Patient has history of Sleep apnea. Uses CPAP 12 cm H2O during night time. Patient Obese, awake, resting on room air. O2 saturation 100%. No acute respiratory distress at rest. Says feeling weak and light headed. Patient afebrile. No leukocytosis, Blood pressure 140/71, rate 78 respirations 12. Chest xray 02/10/22 Previous density of the left has almost completely cleared with only minimal basilar atelectasis remaining. Right lung field clear. No pneumothorax. CT scan of chest 02/08/[address] evidence of thymoma. Hypoattenuating lesions of the liver statistically reflect hepatic hemangiomas. One of these lesions demonstrate characteristic peripheral puddling of contrast, the second does not clearly demonstrate specific pattern of enhancement. Ultrasound targeting these lesions may be useful for further characterization and confirmation of hemangioma. Moderate subsegmental atelectasis of the bilateral lungs. Satisfactory positioning of endotracheal tube and esophagogastric tube. Patient is on Po Prednisone, Albuterol inhaler, S/C Lovenox and famotidine. Objective Vital Signs - 12hr 02/13/22 02/13/22 02/13/22 20:00 20:31 21:00 Temperature 98.8 F Pulse Rate 65 59 L 67 Respiratory 20 22 22 Rate Blood Pressure 122/59 122/59 131/71 O2 Sat by Pulse 99 100 97 Oximetry 02/13/22 02/13/22 02/13/22 21:27 21:31 22:00 Temperature Pulse Rate 71 64 62 Respiratory 27 H 23 24 Rate Blood Pressure 131/71 131/71 138/69 O2 Sat by Pulse 97 97 97 Oximetry 02/13/22 02/13/22 02/13/22 22:31 23:00 23:30 Temperature Pulse Rate 54 L 56 L 53 L Respiratory 17 10 L 14 Rate Blood Pressure 138/69 150/68 138/69 O2 Sat by Pulse 99 100 100 Oximetry 02/13/22 02/14/22 02/14/22 23:31 00:00 00:01 Temperature 98.6 F Pulse Rate 52 L 60 58 L Respiratory 18 15 Rate Blood Pressure 150/68 141/63 O2 Sat by Pulse 100 99 100 Oximetry 02/14/22 02/14/22 02/14/22 00:31 01:01 01:31 Temperature Pulse Rate 50 L 49 L 48 L Respiratory 21 15 18 Rate Blood Pressure 141/63 150/56 150/56 O2 Sat by Pulse 99 100 100 Oximetry 02/14/22 02/14/22 02/14/22 02:01 02:31 03:01 Temperature Pulse Rate 61 50 L 47 L Respiratory 18 18 16 Rate Blood Pressure 130/59 130/59 118/54 O2 Sat by Pulse 100 100 99 Oximetry 02/14/22 02/14/22 02/14/22 03:31 04:00 04:31 Temperature 97.4 F L Pulse Rate 50 L 99 H 48 L Respiratory 16 17 15 Rate Blood Pressure 118/54 125/63 125/63 O2 Sat by Pulse 99 100 99 Oximetry 02/14/22 02/14/22 02/14/22 04:33 05:00 05:31 Temperature Pulse Rate 46 L 43 L 43 L Respiratory 15 15 15 Rate Blood Pressure 125/63 117/63 117/63 O2 Sat by Pulse 99 100 99 Oximetry 02/14/22 02/14/22 06:00 07:23 Temperature 97.7 F Pulse Rate 46 L Respiratory 15 Rate Blood Pressure 113/55 O2 Sat by Pulse 99 Oximetry Constitutional: no acute distress, alert Eyes: non-icteric ENT: oropharynx moist Neck: supple, no lymphadenopathy, no JVD, other (large circumference) Effort: normal Ascultation: Bilateral: diminished breath sounds Percussion: Bilateral: not dull Cardiovascular: regular rate and rhythm Gastrointestinal: normoactive bowel sounds, soft, non-tender, non-distended (protuberant) Integumentary: normal Extremities: no cyanosis, no edema, pulses normal, no ischemia or petechiae Neurologic: non-focal exam (grossly), pupils equal and round, CN II-XII normal, other (power 4-5/5 bilaterally) Psychiatric: anxious CBC and BMP: 02/13/22 04:17 02/13/22 04:17 ABG, PT/INR, D-dimer: ABG ABG pH 7.333 pH Units (7.350-7.450) L 02/08/22 09:20 ABG pCO2 48.2 mm Hg 02/08/22 09:20 ABG pO2 114.7 mm Hg (80.0-90.0) H 02/08/22 09:20 ABG O2 Saturation 97.9 % (95.0-99.0) 02/08/22 09:20 Abnormal lab findings: Abnormal Labs 02/06/22 02/06/22 02/06/22 12:39 12:39 13:59 WBC RBC 5.75 H Hgb Hct MCV 74 L MCH 23 L MCHC 30 L RDW 16.9 H Lymph % (Auto) 6.4 L [place] % (Auto) Lymph # (Auto) 0.5 L Seg Neutrophils % 89.3 H ABG pH ABG pO2 ABG Hemoglobin 12.6 L Oxyhemoglobin Potassium 3.5 L Chloride 109.1 H Carbon Dioxide 20 L Creatinine 0.7 L Glucose 113 H 02/07/22 02/07/22 02/08/22 04:15 12:00 04:23 WBC RBC 5.10 H Hgb 11.5 L 11.0 L Hct MCV 72 L 74 L MCH 23 L 22 L MCHC 30 L RDW 17.3 H 17.1 H Lymph % (Auto) [place] % (Auto) 9.1 H Lymph # (Auto) Seg Neutrophils % ABG pH ABG pO2 72.6 L ABG Hemoglobin 12.2 L Oxyhemoglobin 94.4 L Potassium Chloride Carbon Dioxide Creatinine Glucose 02/08/22 02/08/22 02/09/22 04:23 09:20 04:50 WBC RBC Hgb 10.4 L Hct 33.7 L MCV 73 L MCH 22 L MCHC 31 L RDW 17.5 H Lymph % (Auto) [place] % (Auto) Lymph # (Auto) Seg Neutrophils % ABG pH 7.333 L ABG pO2 114.7 H ABG Hemoglobin 11.1 L Oxyhemoglobin Potassium Chloride 109.3 H Carbon Dioxide Creatinine 0.6 L Glucose 02/09/22 02/10/22 02/11/22 04:50 04:50 04:38 WBC 4.4 L 3.3 L RBC Hgb 10.1 L 10.4 L Hct 32.9 L 33.6 L MCV 73 L 73 L MCH 22 L 23 L MCHC 31 L 31 L RDW 17.2 H 17.0 H Lymph % (Auto) [place] % (Auto) Lymph # (Auto) Seg Neutrophils % ABG pH ABG pO2 ABG Hemoglobin Oxyhemoglobin Potassium Chloride Carbon Dioxide Creatinine Glucose 107 H 02/11/22 02/12/22 02/13/22 04:38 04:25 04:17 WBC 3.7 L 3.5 L RBC Hgb 10.5 L 10.8 L Hct 34.5 L MCV 73 L 73 L MCH 22 L 22 L MCHC 30 L 30 L RDW 16.9 H 17.5 H Lymph % (Auto) [place] % (Auto) Lymph # (Auto) Seg Neutrophils % ABG pH ABG pO2 ABG Hemoglobin Oxyhemoglobin Potassium Chloride Carbon Dioxide Creatinine 0.7 L Glucose 101 H Allied health notes reviewed: nursing
[2022-02-14] MEDS: MYCOPHENOLATE PO SCH ×2 (09:35→22:45)
[2022-02-14] MEDS: FAMOTIDINE 20 MG TAB PO SCH ×2 (09:35→22:05)
[2022-02-14] MEDS: SENNOSIDES/DOCUSATE SODIUM 8.6/50 MG TAB PO SCH ×2 (09:35→22:05)
[2022-02-14] MEDS: predniSONE 20 MG TAB PO SCH ×2 (09:35→16:00)
[2022-02-14] MEDS: PYRIDOSTIGMINE BROMIDE 60 MG TAB PO SCH (09:36)
--- NOTE | 2022-02-14 12:12 | Progress Note ---
Assessment and Plan Assessment and plan: History Interval history: This is 36 year old male with Myasthenia Gravis (currently taking Cellcept, Mycophenolate, and Prednisone), ANTON (uses home CPAP) and obesity who presented to the emergency department on 02/06 with complaints of generalized weakness of the past day with worsening symptoms over the same timeframe via EMS. On hospitalist examination patient reported he was able to walk earlier during the day however at the time of evaluation, patient was unable to walk and unable to lift or feel his lower extremities and acknowledged upper extremity weakness and difficulty speaking. Patient was found to have myasthenia gravis crisis and was admitted to the ICU for risk of worsening symptoms. In the emergency department patient was placed on NIPPV and IVIG was ordered. Patient was admitted to the hospital service with Myasthenia Gravis crisis with consults to CCM and neurology Hospital Course to Date: 02/07: S/p X1 dose of IV IG overnight, patient reported feeling much better and stronger this am, moving all extremities. Plan to wean off Bipap this am. Okay to start a diet if patient pass bedside swallow. D/W CCM plan for CT chest w con tomorrow to r/o thymoma. Neurology consulted. 02/08: S/p emergent intubattion by cipriano yesterday. Now intubated and sedated, RASS -2. Neurology recommendations noted. Resumed home meds. Will wean off sedation this am for possible SAT/SBT. CT chest also noted with no evidence of thymoma. Continue IVIG. Attending received call back from [facility]. Transfer was declined, no available ICU beds at this time. They recommend continuing IVIG and possible plasma exchange. Awaiting on Neurology final recommendations. 02/09: S/p Extubation this am. Desated to 85% on 3L NC, SPO2 improved to 88% on 8L NC. This am CXR noted, worsen opacity of the left side. CCM at the bedside, X1 dose of IV Lasix ordered and place patient on Bipap. Low Threshold for reintubation. Plan of care and the high probability for reintubation was discussed with patient at the bedside. Patient verbalized understanding and agree with current care plan. Continue IVIG, Awaiting on Neurology final haider mmendations. 02/10: Tolerated Bipap, now on 2L NC this am, SPO2 at 100%. No s/s of any acute respiratory distress noted. This am CXR also noted with significant improvement. Continue IVIGm and Bipap at night. Incentive Spirometer also ordered. advance diet as tolerated. PT/OT/Speech consulted. 02/11: Completed x5days of IVIG overnight. Stable on RA, still complaining of generalized weakness, other stable. Diet advanced to solid this am, patient is tolerating it. Continue IS and Bipap at night. Encourage mobility as tolerated, PT/OT/Speech consult pending. 02/12: CPAP prn, currently on RA. Improved strength to BLE and BUE per patient. 02/13: Increased weakness reported on encounter. increased steroid dose to prednisone 40 mg po daily. Continue pyridostigmine and cellcept. Possible d/c tomorrow. 02/14: Weakness improved however still continues to have difficulty with strength. Still has right eye lid droop. Patient increased to prednisone 60 mg po daily. 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 Pt recommended home with home health care PT. Ambulation is challenging as patient requires a rolling walker. 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 Patient is not a resident of [place]. States her home state is [place]. has a sister in [place] who's address she uses for mailing purposes. Will work with to coordinate placement. Assessment and Plan Neuro: Myasthenia Gravis Crisis, h/o Myasthenia Gravis -Patient is from [place], here for work (solo truck driver)->sees neurology in [place] (Per patient his neurologist in [place] is Dr. Billie Delgado) -Neurology consulted, appreciate recommendations -s/p IVIG x 5 days -Restarted home prednisone, cellcept, mestinon -Reorientation as needed -Maintain sleep-wake cycle -As needed analgesia -Transfer to [facility] was declined, no available ICU beds at this time. 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 -CCM consulted, appreciate recommendations -Intubated on 02/07 in the ED with 7.5 OETT at 20 at the teeth for difficulty breathing and noted to be drooling and extubated 02/09 -BiPAP q hs and prn -CT chest w con showed no evidence of thymoma -Pulmonary hygiene bundle -SPO2 monitoring GI: Hepatic Hemangiomas -noted on CT chest -24 hours -1350 mL -ST recommends mechanical soft with chopped meat and gravy applied on top of meat with thin liquid -PPI -BR: Senokot S -Outpatient follow up for US and further workup : NAD -Monitor intake and output -Renally dose medications -Trend BMP prn ID: NAD -f/u blood culture -Monitor WBC and temperature curve Endo: NAD -Avoid hypoglycemia Heme: Leukopenia -Trend CBC -Transfuse hemoglobin less than 7 -SCDs to BLE while in bed The high probability of a clinically significant, sudden or life threatening deterioration of the [neuro/resp] system(s) required my full and direct attention, intervention and personal management. The aggregate critical care time was [60] minutes. This time is in addition to time spent performing reported procedures but includes the following: [x] Data Review and interpretation [x] Patient assessment and monitoring of vital signs [x] Documentation [x] Medication orders and management Disposition Plan: imcu Total Time Spent with Patient (Minutes): 60 History Interval history: States that she still continues to have weakness. VSS on encounter .patient is on room air. Hospitalist Physical - Physical exam Narrative exam: General appearance: Present: no acute distress, well-nourished, obese - EENT Eyes: Present: PERRL (drooping eyelid right side) ENT: dentition normal, hearing decreased - Neck Neck: Present: normal ROM - Respiratory Respiratory effort: normal Respiratory: bilateral: diminished - Cardiovascular Rhythm: regular Heart Sounds: Present: S1 & S2. Absent: systolic murmur, diastolic murmur - Extremities Extremities: no ischemia, pulses intact, pulses symmetrical, No edema, normal temperature, normal color Peripheral Pulses: within normal limits - Abdominal General gastrointestinal: soft, non-tender, non-distended, normal bowel sounds - Integumentary Integumentary: Present: warm, dry - Psychiatric Psychiatric: appropriate mood/affect, cooperative - Neurologic Neurologic: no focal deficits, moves all extremities - Allied Health Allied health notes reviewed: nursing, RT, social work - Constitutional Vitals: Temp Pulse Resp BP Pulse Ox 97.7 F 54 L 18 171/99 99 02/14/22 07:23 02/14/22 11:31 02/14/22 11:31 02/14/22 11:31 02/14/22 11:31 General appearance: Present: no acute distress, well-nourished, obese Results - Labs CBC & Chem 7: 02/13/22 04:17 02/13/22 04:17 Labs: Laboratory Last Values WBC 3.5 K/mm3 (4.5-11.0) L 02/13/22 04:17 RBC 4.95 M/mm3 (3.65-5.03) 02/13/22 04:17 Hgb 10.8 gm/dl (11.8-15.2) L 02/13/22 04:17 Hct 35.9 % (35.5-45.6) 02/13/22 04:17 MCV 73 fl (84-94) L 02/13/22 04:17 MCH 22 pg (28-32) L 02/13/22 04:17 MCHC 30 % (32-34) L 02/13/22 04:17 RDW 17.5 % (13.2-15.2) H 02/13/22 04:17 Plt Count 192 K/mm3 (140-440) 02/13/22 04:17 Lymph % (Auto) 29.4 % (13.4-35.0) 02/07/22 04:15 [place] % (Auto) 9.1 % (0.0-7.3) H 02/07/22 04:15 Eos % (Auto) 0.4 % (0.0-4.3) 02/07/22 04:15 Baso % (Auto) 0.7 % (0.0-1.8) 02/07/22 04:15 Lymph # (Auto) 1.7 K/mm3 (1.2-5.4) 02/07/22 04:15 [place] # (Auto) 0.5 K/mm3 (0.0-0.8) 02/07/22 04:15 Eos # (Auto) 0.0 K/mm3 (0.0-0.4) 02/07/22 04:15 Baso # (Auto) 0.0 K/mm3 (0.0-0.1) 02/07/22 04:15 Seg Neutrophils % 60.4 % (40.0-70.0) 02/07/22 04:15 Seg Neutrophils # 3.6 K/mm3 (1.8-7.7) 02/07/22 04:15 ABG pH 7.333 pH Units (7.350-7.450) L 02/08/22 09:20 ABG pCO2 48.2 mm Hg 02/08/22 09:20 ABG pO2 114.7 mm Hg (80.0-90.0) H 02/08/22 09:20 ABG HCO3 25.0 mmol/L (20.0-26.0) 02/08/22 09:20 ABG O2 Saturation 97.9 % (95.0-99.0) 02/08/22 09:20 ABG O2 Content 15.1 (0.0-44) 02/08/22 09:20 ABG Base Excess -1.1 mmol/L (-2.0-3.0) 02/08/22 09:20 ABG Hemoglobin 11.1 gm/dl (14.0-18.0) L 02/08/22 09:20 ABG Carboxyhemoglobin 1.4 % (0.0-5.0) 02/08/22 09:20 ABG Methemoglobin 0.5 % (0.0-1.5) 02/08/22 09:20 Oxyhemoglobin 96.1 % (95.0-99.0) 02/08/22 09:20 FiO2 35 % 02/08/22 09:20 Sodium 141 mmol/L (137-145) 02/13/22 04:17 Potassium 4.3 mmol/L (3.6-5.0) 02/13/22 04:17 Chloride 105.3 mmol/L (98-107) 02/13/22 04:17 Carbon Dioxide 30 mmol/L (22-30) 02/13/22 04:17 Anion Gap 10 mmol/L 02/13/22 04:17 BUN 9 mg/dL (9-20) 02/13/22 04:17 Creatinine 0.8 mg/dL (0.8-1.3) 02/13/22 04:17 Estimated GFR > 60 ml/min 02/13/22 04:17 BUN/Creatinine Ratio 11 % 02/13/22 04:17 Glucose 89 mg/dL (75-100) 02/13/22 04:17 Calcium 9.1 mg/dL (8.4-10.2) 02/13/22 04:17 Total Bilirubin 0.40 mg/dL (0.1-1.2) 02/07/22 04:15 AST 9 units/L (5-40) 02/07/22 04:15 ALT 11 units/L (7-56) 02/07/22 04:15 Alkaline Phosphatase 75 units/L (35-129) 02/07/22 04:15 Total Protein 7.0 g/dL (6.3-8.2) 02/07/22 04:15 Albumin 4.0 g/dL (3.9-5) 02/07/22 04:15 Albumin/Globulin Ratio 1.3 % 02/07/22 04:15 [place]/IV: Voiding Method Urinal Active Medications - Current Medications Current Medications: Generic Name Dose Route Start Last Admin Trade Name Freq PRN Reason Stop Dose Admin Acetaminophen 650 mg 02/06/22 15:00 02/10/22 18:11 Acetaminophen 325 Mg Tab PO 650 mg Q6H PRN Administration Pain MILD(1-3)/Fever >100.5/WEINBERG Albuterol 2.5 mg 02/06/22 15:00 Albuterol 2.5 Mg/3 Ml Nebu IH Q3HRT PRN Shortness Of Breath Enoxaparin Sodium 40 mg 02/06/22 22:00 02/13/22 21:25 Enoxaparin 40 Mg/0.4 Ml Inj SUB-Q 40 mg QDAY@2200 NESTOR Administration Protocol Famotidine 20 mg 02/12/22 10:00 02/14/22 09:35 Famotidine 20 Mg Tab PO 20 mg BID NESTOR Administration Hydrophilic Ointment 1 applic 02/07/22 10:55 Lip Therapy Vaseline TP Q2HR PRN Dry Lips Multi-Ingred Cream/Lotion/Oil/Oint 1 applic 02/07/22 10:55 Mineral Oil/Petrolatum, White Ophth Oint 3.5 Gm OU Q4HR PRN Dry Eye(s) Mycophenolate Mofetil 1,000 mg 02/12/22 10:00 02/14/22 09:35 Mycophenolate 1000 Mg/5 Ml Oral Liqd PO 1,000 mg BID NESTOR Administration Ondansetron HCl 4 mg 02/08/22 17:00 02/10/22 18:25 Ondansetron 4 Mg/2 Ml Inj IV 4 mg Q8H PRN Administration Nausea And Vomiting Oxycodone/Acetaminophen 1 tab 02/06/22 15:00 Oxycodone /Acetaminophen 5-325mg Tab PO Q16H PRN Pain, Moderate (4-6) Prednisone 60 mg 02/14/22 11:50 Prednisone 20 Mg Tab PO QDAY NESTOR Pyridostigmine [place] 180 mg 02/08/22 10:00 02/14/22 09:36 Pyridostigmine [place] 60 Mg Tab PO 180 mg DAILY NESTOR Administration Senna/Docusate Sodium 1 tab 02/12/22 10:00 02/14/22 09:35 Sennosides/Docusate Sodium 8.6/50 Mg Tab PO 1 tab BID NESTOR Administration Sodium Chloride 10 ml 02/06/22 22:00 02/14/22 09:38 Sodium Chloride 0.9% 10 Ml Flush Syringe IV 10 ml BID NESTOR Administration Sodium Chloride 10 ml 02/06/22 13:59 Sodium Chloride 0.9% 10 Ml Flush Syringe IV PRN PRN LINE FLUSH Nutrition/Malnutrition Assess - Dietary Evaluation Nutrition/Malnutrition Findings: Nutrition Notes Start: 02/07/22 13:09 Freq: Status: Active Protocol: Document 02/12/22 15:28 LATOYA (Rec: 02/12/22 15:44 LATOYA [email or web address]) Nutrition Notes Initial or Follow up Reassessment Other Pertinent Diagnosis Myasthenia gravis crisis Current Diet [facility] soft with chopped meats Labs/Tests Reviewed Pertinent Medications Reviewed Height 5 ft 10 in Weight 102.194 kg [place] Body Weight (kg) 75.45 BMI 32.3 Weight Status Obese Subjective/Other Information Pt extubated on 02/09. Per HPLC CHEMIST evaluation on 02/11, pt tolerated [facility] soft diet with chopped meats/gravy on meats. Observed consumption of 100% of entree for lunch today. He says the green beans and fruit cup contains too much magnesium for him; he avoids foods containing >10mg of magnesium. Burn Absent Trauma Absent #1 Nutrition Diagnosis Inadequate oral intake As Evidenced by Signs and Symptoms pt tolerating PO diet Diagnosis Progress(for reassessment Improved documentation) Is patient on ventilator? No Is Patient Ambulatory and/or Out of Bed No REE-([place]-confined to bed) 2352.060 Kcal/Kg value to use for calculation 18 Approximate Energy Requirements Using 1839 kcal/Kg Calculation Used for Recommendations Kcal/kg Additional Notes Pro needs 0.8-1g/kg adjBW: 71- 89g/day Fluid needs 1ml/kcal Nutrition Intervention Change Diet Order: Continue current diet order Goal #1 PO intake to meet at least 75% energy and pro needs Follow-Up By: 02/20/22 Additional Comments F/U: intakes, wt
[2022-02-14] MEDS: ENOXAPARIN 40 MG/0.4 ML INJ SUB-Q SCH (22:05)
[2022-02-14] MEDS: MYCOPHENOLATE 500 MG TAB PO SCH (22:44)
--- NOTE | 2022-02-15 09:16 | Progress Note ---
Assessment and Plan Assessment and plan: History Interval history: This is 36 year old male with Myasthenia Gravis (currently taking Cellcept, Mycophenolate, and Prednisone), ANTON (uses home CPAP) and obesity who presented to the emergency department on 02/06 with complaints of generalized weakness of the past day with worsening symptoms over the same timeframe via EMS. On hospitalist examination patient reported he was able to walk earlier during the day however at the time of evaluation, patient was unable to walk and unable to lift or feel his lower extremities and acknowledged upper extremity weakness and difficulty speaking. Patient was found to have myasthenia gravis crisis and was admitted to the ICU for risk of worsening symptoms. In the emergency department patient was placed on NIPPV and IVIG was ordered. Patient was admitted to the hospital service with Myasthenia Gravis crisis with consults to CCM and neurology Hospital Course to Date: 02/07: S/p X1 dose of IV IG overnight, patient reported feeling much better and stronger this am, moving all extremities. Plan to wean off Bipap this am. Okay to start a diet if patient pass bedside swallow. D/W CCM plan for CT chest w con tomorrow to r/o thymoma. Neurology consulted. 02/08: S/p emergent intubattion by cipriano yesterday. Now intubated and sedated, RASS -2. Neurology recommendations noted. Resumed home meds. Will wean off sedation this am for possible SAT/SBT. CT chest also noted with no evidence of thymoma. Continue IVIG. Attending received call back from [facility]. Transfer was declined, no available ICU beds at this time. They recommend continuing IVIG and possible plasma exchange. Awaiting on Neurology final recommendations. 02/09: S/p Extubation this am. Desated to 85% on 3L NC, SPO2 improved to 88% on 8L NC. This am CXR noted, worsen opacity of the left side. CCM at the bedside, X1 dose of IV Lasix ordered and place patient on Bipap. Low Threshold for reintubation. Plan of care and the high probability for reintubation was discussed with patient at the bedside. Patient verbalized understanding and agree with current care plan. Continue IVIG, Awaiting on Neurology final haider mmendations. 02/10: Tolerated Bipap, now on 2L NC this am, SPO2 at 100%. No s/s of any acute respiratory distress noted. This am CXR also noted with significant improvement. Continue IVIGm and Bipap at night. Incentive Spirometer also ordered. advance diet as tolerated. PT/OT/Speech consulted. 02/11: Completed x5days of IVIG overnight. Stable on RA, still complaining of generalized weakness, other stable. Diet advanced to solid this am, patient is tolerating it. Continue IS and Bipap at night. Encourage mobility as tolerated, PT/OT/Speech consult pending. 02/12: CPAP prn, currently on RA. Improved strength to BLE and BUE per patient. 02/13: Increased weakness reported on encounter. increased steroid dose to prednisone 40 mg po daily. Continue pyridostigmine and cellcept. Possible d/c tomorrow. 02/14: Weakness improved however still continues to have difficulty with strength. Still has right eye lid droop. Patient increased to prednisone 60 mg po daily. He has had 4 myasthenia gravis crises in the past and was initiated on high dose steroids with terminal carman taper by her OP neurologist. Pt recommended home with home health care PT. Ambulation is challenging as patient requires a rolling walker. 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 Patient is not a resident of [place]. States his home state is [place]. He has a sister in [place] who's address he uses for mailing purposes. Will work with to coordinate placement. 02/15: worsened strength. Admits to dysphagia and shortness of breath today. Given worsening symptomology transferring back to ICU for close monitoring. Plasma exchange ordered, first tx tomorrow, coordinated with Dr Aldana [facility]. [facility] today/tomorrow AM for exchanges. Steroid dose increased to Prednisone 80 mg po daily in interim. Will attempt to call neurologist tomorrow AM. 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 Billie Delgado) -Neurology consulted, appreciate recommendations -s/p IVIG x 5 days -Restarted home prednisone, cellcept, mestinon -Reorientation as needed -Maintain sleep-wake cycle -As needed analgesia -Transfer to [facility] was declined, no available ICU beds at this time. 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 -CCM consulted, appreciate recommendations -Intubated on 02/07 in the ED with 7.5 OETT at 20 at the teeth for difficulty breathing and noted to be drooling and extubated 02/09 -BiPAP q hs and prn -CT chest w con showed no evidence of thymoma -Pulmonary hygiene bundle -SPO2 monitoring GI: Hepatic Hemangiomas -noted on CT chest -24 hours -1350 mL -ST recommends mechanical soft with chopped meat and gravy applied on top of meat with thin liquid -PPI -BR: Senokot S -Outpatient follow up for US and further workup : NAD -Monitor intake and output -Renally dose medications -Trend BMP prn ID: NAD -f/u blood culture -Monitor WBC and temperature curve Endo: NAD -Avoid hypoglycemia Heme: Leukopenia -Trend CBC -Transfuse hemoglobin less than 7 -SCDs to BLE while in bed The high probability of a clinically significant, sudden or life threatening det erioration of the [neuro/resp] system(s) required my full and direct attention, intervention and personal management. The aggregate critical care time was [60] minutes. This time is in addition to time spent performing reported procedures but includes the following: [x] Data Review and interpretation [x] Patient assessment and monitoring of vital signs [x] Documentation [x] Medication orders and management Disposition Plan: ICU Total Time Spent with Patient (Minutes): 90 History Interval history: Admits to worsened strength, worsened diplopia, worsened dysphagia and worsened shortness of breath today. Patient feels as though she is regressing. Hospitalist Physical - Physical exam Narrative exam: General appearance: Present: no acute distress, well-nourished, obese - EENT Eyes: Present: PERRL (drooping eyelid right side) ENT: dentition normal, hearing decreased - Neck Neck: Present: normal ROM - Respiratory Respiratory effort: normal Respiratory: bilateral: diminished - Cardiovascular Rhythm: regular Heart Sounds: Present: S1 & S2. Absent: systolic murmur, diastolic murmur - Extremities Extremities: no ischemia, pulses intact, pulses symmetrical, No edema, normal temperature, normal color Peripheral Pulses: within normal limits - Abdominal General gastrointestinal: soft, non-tender, non-distended, normal bowel sounds - Integumentary Integumentary: Present: warm, dry - Psychiatric Psychiatric: appropriate mood/affect, cooperative - Neurologic Neurologic: no focal deficits, moves all extremities - Allied Health Allied health notes reviewed: nursing, RT, social work - Constitutional Vitals: Temp Pulse Resp BP Pulse Ox 98.5 F 51 L 12 125/49 100 02/15/22 08:06 02/15/22 06:00 02/15/22 05:00 02/15/22 06:00 02/15/22 06:00 General appearance: Present: no acute distress, well-nourished, obese Results - Labs CBC & Chem 7: 02/13/22 04:17 02/13/22 04:17 Labs: Laboratory Last Values WBC 3.5 K/mm3 (4.5-11.0) L 02/13/22 04:17 RBC 4.95 M/mm3 (3.65-5.03) 02/13/22 04:17 Hgb 10.8 gm/dl (11.8-15.2) L 02/13/22 04:17 Hct 35.9 % (35.5-45.6) 02/13/22 04:17 MCV 73 fl (84-94) L 02/13/22 04:17 MCH 22 pg (28-32) L 02/13/22 04:17 MCHC 30 % (32-34) L 02/13/22 04:17 RDW 17.5 % (13.2-15.2) H 02/13/22 04:17 Plt Count 192 K/mm3 (140-440) 02/13/22 04:17 Lymph % (Auto) 29.4 % (13.4-35.0) 02/07/22 04:15 Brown % (Auto) 9.1 % (0.0-7.3) H 02/07/22 04:15 Eos % (Auto) 0.4 % (0.0-4.3) 02/07/22 04:15 Baso % (Auto) 0.7 % (0.0-1.8) 02/07/22 04:15 Lymph # (Auto) 1.7 K/mm3 (1.2-5.4) 02/07/22 04:15 Brown # (Auto) 0.5 K/mm3 (0.0-0.8) 02/07/22 04:15 Eos # (Auto) 0.0 K/mm3 (0.0-0.4) 02/07/22 04:15 Baso # (Auto) 0.0 K/mm3 (0.0-0.1) 02/07/22 04:15 Seg Neutrophils % 60.4 % (40.0-70.0) 02/07/22 04:15 Seg Neutrophils # 3.6 K/mm3 (1.8-7.7) 02/07/22 04:15 ABG pH 7.333 pH Units (7.350-7.450) L 02/08/22 09:20 ABG pCO2 48.2 mm Hg 02/08/22 09:20 ABG pO2 114.7 mm Hg (80.0-90.0) H 02/08/22 09:20 ABG HCO3 25.0 mmol/L (20.0-26.0) 02/08/22 09:20 ABG O2 Saturation 97.9 % (95.0-99.0) 02/08/22 09:20 ABG O2 Content 15.1 (0.0-44) 02/08/22 09:20 ABG Base Excess -1.1 mmol/L (-2.0-3.0) 02/08/22 09:20 ABG Hemoglobin 11.1 gm/dl (14.0-18.0) L 02/08/22 09:20 ABG Carboxyhemoglobin 1.4 % (0.0-5.0) 02/08/22 09:20 ABG Methemoglobin 0.5 % (0.0-1.5) 02/08/22 09:20 Oxyhemoglobin 96.1 % (95.0-99.0) 02/08/22 09:20 FiO2 35 % 02/08/22 09:20 Sodium 141 mmol/L (137-145) 02/13/22 04:17 Potassium 4.3 mmol/L (3.6-5.0) 02/13/22 04:17 Chloride 105.3 mmol/L (98-107) 02/13/22 04:17 Carbon Dioxide 30 mmol/L (22-30) 02/13/22 04:17 Anion Gap 10 mmol/L 02/13/22 04:17 BUN 9 mg/dL (9-20) 02/13/22 04:17 Creatinine 0.8 mg/dL (0.8-1.3) 02/13/22 04:17 Estimated GFR > 60 ml/min 02/13/22 04:17 BUN/Creatinine Ratio 11 % 02/13/22 04:17 Glucose 89 mg/dL (75-100) 02/13/22 04:17 Calcium 9.1 mg/dL (8.4-10.2) 02/13/22 04:17 Total Bilirubin 0.40 mg/dL (0.1-1.2) 02/07/22 04:15 AST 9 units/L (5-40) 02/07/22 04:15 ALT 11 units/L (7-56) 02/07/22 04:15 Alkaline Phosphatase 75 units/L (35-129) 02/07/22 04:15 Total Protein 7.0 g/dL (6.3-8.2) 02/07/22 04:15 Albumin 4.0 g/dL (3.9-5) 02/07/22 04:15 Albumin/Globulin Ratio 1.3 % 02/07/22 04:15 Roberson/IV: Voiding Method Urinal Active Medications - Current Medications Current Medications: Generic Name Dose Route Start Last Admin Trade Name Freq PRN Reason Stop Dose Admin Acetaminophen 650 mg 02/06/22 15:00 02/10/22 18:11 Acetaminophen 325 Mg Tab PO 650 mg Q6H PRN Administration Pain MILD(1-3)/Fever >100.5/WEINBERG Albuterol 2.5 mg 02/06/22 15:00 Albuterol 2.5 Mg/3 Ml Nebu IH Q3HRT PRN Shortness Of Breath Enoxaparin Sodium 40 mg 02/06/22 22:00 02/14/22 22:05 Enoxaparin 40 Mg/0.4 Ml Inj SUB-Q 40 mg QDAY@2200 NESTOR Administration Protocol Famotidine 20 mg 02/12/22 10:00 02/14/22 22:05 Famotidine 20 Mg Tab PO 20 mg BID NESTOR Administration Hydrophilic Ointment 1 applic 02/07/22 10:55 Lip Therapy Vaseline TP Q2HR PRN Dry Lips Multi-Ingred Cream/Lotion/Oil/Oint 1 applic 02/07/22 10:55 Mineral Oil/Petrolatum, White Ophth Oint 3.5 Gm OU Q4HR PRN Dry Eye(s) Mycophenolate Mofetil 1,000 mg 02/12/22 10:00 02/14/22 22:45 Mycophenolate 1000 Mg/5 Ml Oral Liqd PO Not Given BID NESTOR Mycophenolate Mofetil 1,000 mg 02/14/22 22:00 02/14/22 22:44 Mycophenolate 500 Mg Tab PO 02/15/22 10:01 1,000 mg BID NESTOR Administration Ondansetron HCl 4 mg 02/08/22 17:00 02/10/22 18:25 Ondansetron 4 Mg/2 Ml Inj IV 4 mg Q8H PRN Administration Nausea And Vomiting Oxycodone/Acetaminophen 1 tab 02/06/22 15:00 Oxycodone /Acetaminophen 5-325mg Tab PO Q16H PRN Pain, Moderate (4-6) Prednisone 60 mg 02/14/22 12:00 Prednisone 20 Mg Tab PO QDAY NESTOR Pyridostigmine Warren 180 mg 02/08/22 10:00 02/14/22 09:36 Pyridostigmine Warren 60 Mg Tab PO 180 mg DAILY NESTOR Administration Senna/Docusate Sodium 1 tab 02/12/22 10:00 02/14/22 22:05 Sennosides/Docusate Sodium 8.6/50 Mg Tab PO 1 tab BID NESTOR Administration Sodium Chloride 10 ml 02/06/22 22:00 02/14/22 22:05 Sodium Chloride 0.9% 10 Ml Flush Syringe IV 10 ml BID NESTOR Administration Sodium Chloride 10 ml 02/06/22 13:59 Sodium Chloride 0.9% 10 Ml Flush Syringe IV PRN PRN LINE FLUSH Nutrition/Malnutrition Assess - Dietary Evaluation Nutrition/Malnutrition Findings: Nutrition Notes Start: 02/07/22 13:09 Freq: Status: Active Protocol: Document 02/12/22 15:28 LATOYA (Rec: 02/12/22 15:44 LATOYA [email or web address]) Nutrition Notes Initial or Follow up Reassessment Other Pertinent Diagnosis Myasthenia gravis crisis Current Diet Mech soft with chopped meats Labs/Tests Reviewed Pertinent Medications Reviewed Height 5 ft 10 in Weight 102.194 kg [place] Body Weight (kg) 75.45 BMI 32.3 Weight Status Obese Subjective/Other Information Pt extubated on 02/09. Per WAREHOUSE ASSISTANT evaluation on 02/11, pt tolerated [facility] soft diet with chopped meats/gravy on meats. Observed consumption of 100% of entree for lunch today. He says the green beans and fruit cup contains too much magnesium for him; he avoids foods containing >10mg of magnesium. Burn Absent Trauma Absent #1 Nutrition Diagnosis Inadequate oral intake As Evidenced by Signs and Symptoms pt tolerating PO diet Diagnosis Progress(for reassessment Improved documentation) Is patient on ventilator? No Is Patient Ambulatory and/or Out of Bed No REE-([facility]-confined to bed) 2352.060 Kcal/Kg value to use for calculation 18 Approximate Energy Requirements Using 1839 kcal/Kg Calculation Used for Recommendations Kcal/kg Additional Notes Pro needs 0.8-1g/kg adjBW: 71- 89g/day Fluid needs 1ml/kcal Nutrition Intervention Change Diet Order: Continue current diet order Goal #1 PO intake to meet at least 75% energy and pro needs Follow-Up By: 02/20/22 Additional Comments F/U: intakes, wt
[2022-02-15] MEDS: MYCOPHENOLATE 500 MG TAB PO SCH (09:38)
[2022-02-15] MEDS: SENNOSIDES/DOCUSATE SODIUM 8.6/50 MG TAB PO SCH ×2 (09:38→21:04)
[2022-02-15] MEDS: FAMOTIDINE 20 MG TAB PO SCH ×2 (09:38→21:04)
[2022-02-15] MEDS: predniSONE 20 MG TAB PO SCH ×2 (09:39→14:24)
[2022-02-15] MEDS: PYRIDOSTIGMINE BROMIDE 60 MG TAB PO SCH (09:39)
[2022-02-15] MEDS: MYCOPHENOLATE PO SCH ×2 (09:48→21:01)
--- NOTE | 2022-02-15 13:07 | Progress Note ---
Assessment and Plan 36 YO Male with MG currently taking Cellcept, Mycophenolate, and Prednisone presents ED for evaluation. Patient states that he had experienced generalized weakness over the past 1 day with progressive and worsening symptoms over the same timeframe. Patient states that he was able to walk earlier today but he is unable to walk. Patient also acknowledges upper extremity weakness as well as difficulty speaking. EMS was notified and upon arrival the patient was found to be in distress and subsequently transported to [facility] for further care and evaluation of the aforementioned symptoms. The patient was seen and evaluated in the emergency department. All lab and imaging studies reviewed. Patient found to have myasthenia gravis crisis with increased risk for worsening symptoms as well as development of acute hypoxemic respiratory failure. Patient placed on noninvasive positive pressure ventilation in the emergency department and admitted to ICU. IVIG ordered in the emergency department. Patient denies fever, chills, chest pain, palpitation productive cough, skin rash and recent Contact, known exposure to COVID-19. Patient eventually intubated and placed on mechanical ventilation. Patient extubated now. Patient has history vaping 2 times a day x 14 years. Stopped vaping 3 years ago. Denies alcohol abuse. Used Marijuna in his teenage years. Not used Marijuana for long time. 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 Not . Has no children. No known drug allergies. Patient has history of Sleep apnea. Uses CPAP 12 cm H2O during night time. atient Obese, awake, resting on room air. O2 saturation 99%. No acute respiratory distress at rest. Says feeling weak and says has difficulty in swallowing. Patient afebrile. No leukocytosis, Blood pressure 132/57, rate 79 respirations 22. Chest xray 02/10/22 Previous density of the left has almost completely cleared with only minimal basilar atelectasis remaining. Right lung field clear. No pneumothorax. CT scan of chest 02/08/[address] evidence of thymoma. Hypoattenuating lesions of the liver statistically reflect hepatic hemangiomas. One of these lesions demonstrate characteristic peripheral puddling of contrast, the second does not clearly demonstrate specific pattern of enhancement. Ultrasound targeting these lesions may be useful for further characterization and confirmation of hemangioma. Moderate subsegmental atelectasis of the bilateral lungs. Satisfactory positioning of endotracheal tube and esophagogastric tube. Patient is on Po Prednisone, Albuterolinhaler, S/C Lovenox and famotidine. I was told patient scheduled for plamaphoresis tomorrow. I spent critical care time of 35 minutes in obtaining history, review the chart, Examining the patient, review xrays, lab results, talking to the nursing staff , respiratory therapy and work up plan of treatment. - Patient Problems (1) Acute hypoxemic respiratory failure Current Visit: Yes Status: Acute Plan to address problem: CPAP during night time. Continue prednisone. Continue S/C Lovenox. Continue famotidine. Albuterol inhaler prn for shortness of breath. (2) Obesity Current Visit: Yes Status: Acute Qualifiers: Body mass index: BMI 33.0-33.9 Plan to address problem: Counseled to loose weight Exercise and diet. (3) Sleep apnea Current Visit: Yes Status: Acute Plan to address problem: Patient says he has history of sleep apnea. No sleep study results available at this time. Continue CPAP as she is using at home. Recommend to loose weight. Explained sleep hygiene. Recommend not to drive or operate heavy equipment with sleepiness. Avoid alcohol, sedatives and Narcotics If sleep study is while back, recommend to repeat sleep study as out patient. (4) Myasthenia gravis Current Visit: Yes Status: Acute Plan to address problem: Management as per primary care and neurology. I was told patient scheduled for plasmaphoresis tomorrow. Subjective Date of service: 02/15/22 Principal diagnosis: Myasthenic crisis; Obesity; Possible ANTON/OHS; Blurry vision; Hypokalemia Interval history: 36 YO Male with MG currently taking Cellcept, Mycophenolate, and Prednisone presents ED for evaluation. Patient states that he had experienced generalized weakness over the past 1 day with progressive and worsening symptoms over the same timeframe. Patient states that he was able to walk earlier today but he is unable to walk. Patient also acknowledges upper extremity weakness as well as difficulty speaking. EMS was notified and upon arrival the patient was found to be in distress and subsequently transported to [facility] for further care and evaluation of the aforementioned symptoms. The patient was seen and evaluated in the emergency department. All lab and imaging studies reviewed. Patient found to have myasthenia gravis crisis with increased risk for worsening symptoms as well as development of acute hypoxemic respiratory failure. Patient placed on noninvasive positive pressure ventilation in the emergency department and admitted to ICU. IVIG ordered in the emergency department. Patient denies fever, chills, chest pain, palpitation productive cough, skin rash and recent Contact, known exposure to COVID-19. Patient eventually intubated and placed on mechanical ventilation. Patient extubated now. Patient has history vaping 2 times a day x 14 years. Stopped vaping 3 years ago. Denies alcohol abuse. Used Marijuna in his teenage years. Not used Marijuana for long time. 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 Not . Has no children. No known drug allergies. Patient has history of Sleep apnea. Uses CPAP 12 cm H2O during night time. Patient Obese, awake, resting on room air. O2 saturation 99%. No acute respiratory distress at rest. Says feeling weak and says has difficulty in swallowing. Patient afebrile. No leukocytosis, Blood pressure 132/57, rate 79 respirations 22. Chest xray 02/10/22 Previous density of the left has almost completely cleared with only minimal basilar atelectasis remaining. Right lung field clear. No pneumothorax. CT scan of chest 02/08/[address] evidence of thymoma. Hypoattenuating lesions of the liver statistically reflect hepatic hemangiomas. One of these lesions demonstrate characteristic peripheral puddling of contrast, the second does not clearly demonstrate specific pattern of enhancement. Ultrasound targeting these lesions may be useful for further characterization and confirmation of hemangioma. Moderate subsegmental atelectasis of the bilateral lungs. Satisfactory positioning of endotracheal tube and esophagogastric tube. Patient is on Po Prednisone, Albuterol inhaler, S/C Lovenox and famotidine. I was told patient scheduled for plasmaphoresis tomorrow. Objective Vital Signs - 12hr 02/15/22 02/15/22 02/15/22 01:30 02:00 02:30 Temperature Pulse Rate 48 L 42 L 42 L Pulse Rate [ From Monitor] Respiratory 17 20 15 Rate Blood Pressure 113/39 113/39 104/41 O2 Sat by Pulse 100 100 99 Oximetry 02/15/22 02/15/22 02/15/22 03:00 03:30 03:41 Temperature 97.2 F L Pulse Rate 46 L 56 L Pulse Rate [ From Monitor] Respiratory 13 14 Rate Blood Pressure 115/52 115/52 O2 Sat by Pulse 100 100 Oximetry 02/15/22 02/15/22 02/15/22 04:00 04:30 05:00 Temperature Pulse Rate 55 L 45 L 48 L Pulse Rate [ 85 From Monitor] Respiratory 15 13 12 Rate Blood Pressure 115/52 134/78 134/78 O2 Sat by Pulse 99 100 Oximetry 02/15/22 02/15/22 02/15/22 05:30 06:00 06:30 Temperature Pulse Rate 46 L 51 L 50 L Pulse Rate [ From Monitor] Respiratory Rate Blood Pressure 125/49 125/49 135/53 O2 Sat by Pulse 100 100 93 Oximetry 02/15/22 02/15/22 02/15/22 07:00 07:30 08:00 Temperature Pulse Rate 51 L 50 L 73 Pulse Rate [ 87 From Monitor] Respiratory Rate Blood Pressure 135/53 139/54 139/54 O2 Sat by Pulse 98 98 98 Oximetry 02/15/22 02/15/22 02/15/22 08:06 08:30 09:00 Temperature 98.5 F Pulse Rate 71 70 Pulse Rate [ From Monitor] Respiratory Rate Blood Pressure 139/54 136/64 O2 Sat by Pulse 98 100 Oximetry 02/15/22 02/15/22 02/15/22 09:30 10:00 10:30 Temperature Pulse Rate 71 107 H 65 Pulse Rate [ From Monitor] Respiratory 22 16 Rate Blood Pressure 121/48 147/89 147/89 O2 Sat by Pulse 89 99 100 Oximetry 02/15/22 02/15/22 02/15/22 11:00 11:46 12:00 Temperature 98.8 F Pulse Rate 73 74 Pulse Rate [ 87 From Monitor] Respiratory 15 Rate Blood Pressure 147/89 O2 Sat by Pulse 92 97 Oximetry Constitutional: no acute distress, alert Eyes: non-icteric ENT: oropharynx moist Neck: supple, no lymphadenopathy, no JVD, other (large circumference) Effort: normal Ascultation: Bilateral: diminished breath sounds Percussion: Bilateral: not dull Cardiovascular: regular rate and rhythm Gastrointestinal: normoactive bowel sounds, soft, non-tender, non-distended (protuberant) Integumentary: normal Extremities: no cyanosis, no edema, pulses normal, no ischemia or petechiae Neurologic: non-focal exam (grossly), pupils equal and round, CN II-XII normal, other (power 4-5/5 bilaterally) Psychiatric: anxious CBC and BMP: 02/16/22 04:52 02/16/22 04:52 ABG, PT/INR, D-dimer: ABG ABG pH 7.333 pH Units (7.350-7.450) L 02/08/22 09:20 ABG pCO2 48.2 mm Hg 02/08/22 09:20 ABG pO2 114.7 mm Hg (80.0-90.0) H 02/08/22 09:20 ABG O2 Saturation 97.9 % (95.0-99.0) 02/08/22 09:20 Abnormal lab findings: Abnormal Labs 02/06/22 02/06/22 02/06/22 12:39 12:39 13:59 WBC RBC 5.75 H Hgb Hct MCV 74 L MCH 23 L MCHC 30 L RDW 16.9 H Lymph % (Auto) 6.4 L Larue % (Auto) Lymph # (Auto) 0.5 L Seg Neutrophils % 89.3 H ABG pH ABG pO2 ABG Hemoglobin 12.6 L Oxyhemoglobin Potassium 3.5 L Chloride 109.1 H Carbon Dioxide 20 L Creatinine 0.7 L Glucose 113 H 02/07/22 02/07/22 02/08/22 04:15 12:00 04:23 WBC RBC 5.10 H Hgb 11.5 L 11.0 L Hct MCV 72 L 74 L MCH 23 L 22 L MCHC 30 L RDW 17.3 H 17.1 H Lymph % (Auto) Larue % (Auto) 9.1 H Lymph # (Auto) Seg Neutrophils % ABG pH ABG pO2 72.6 L ABG Hemoglobin 12.2 L Oxyhemoglobin 94.4 L Potassium Chloride Carbon Dioxide Creatinine Glucose 02/08/22 02/08/22 02/09/22 04:23 09:20 04:50 WBC RBC Hgb 10.4 L Hct 33.7 L MCV 73 L MCH 22 L MCHC 31 L RDW 17.5 H Lymph % (Auto) Larue % (Auto) Lymph # (Auto) Seg Neutrophils % ABG pH 7.333 L ABG pO2 114.7 H ABG Hemoglobin 11.1 L Oxyhemoglobin Potassium Chloride 109.3 H Carbon Dioxide Creatinine 0.6 L Glucose 02/09/22 02/10/22 02/11/22 04:50 04:50 04:38 WBC 4.4 L 3.3 L RBC Hgb 10.1 L 10.4 L Hct 32.9 L 33.6 L MCV 73 L 73 L MCH 22 L 23 L MCHC 31 L 31 L RDW 17.2 H 17.0 H Lymph % (Auto) Larue % (Auto) Lymph # (Auto) Seg Neutrophils % ABG pH ABG pO2 ABG Hemoglobin Oxyhemoglobin Potassium Chloride Carbon Dioxide Creatinine Glucose 107 H 02/11/22 02/12/22 02/13/22 04:38 04:25 04:17 WBC 3.7 L 3.5 L RBC Hgb 10.5 L 10.8 L Hct 34.5 L MCV 73 L 73 L MCH 22 L 22 L MCHC 30 L 30 L RDW 16.9 H 17.5 H Lymph % (Auto) Larue % (Auto) Lymph # (Auto) Seg Neutrophils % ABG pH ABG pO2 ABG Hemoglobin Oxyhemoglobin Potassium Chloride Carbon Dioxide Creatinine 0.7 L Glucose 101 H Allied health notes reviewed: nursing
[2022-02-15] MEDS ORDERED: diphenhydrAMINE 50 MG/ML VIAL IV PRN (14:06)
[2022-02-15] MEDS: ENOXAPARIN 40 MG/0.4 ML INJ SUB-Q SCH (21:07)
[2022-02-16 05:20] LABS: Basophils % (Auto) 0.1 % (0.0-1.8); Hematocrit 35.3 % (35.5-45.6); Hemoglobin 11.4 gm/dl (11.8-15.2); Lymphocytes # (Auto) 1.6 K/mm3 (1.2-5.4); Lymphocytes % (Auto) 20.8 % (13.4-35.0); Mean Corpuscular HGB Conc 32 % (32-34); Mean Corpuscular Volume 71 fl (84-94); Monocytes # (Auto) 0.6 K/mm3 (0.0-0.8); Monocytes % (Auto) 7.6 % (0.0-7.3); Platelet Count 220 K/mm3 (140-440); Red Blood Count 4.96 M/mm3 (3.65-5.03); Red Cell Distribution Width 17.4 % (13.2-15.2)
[2022-02-16 05:39] LABS: Albumin 3.5 g/dL (3.9-5); Blood Urea Nitrogen 13 mg/dL (9-20); Calcium 9.4 mg/dL (8.4-10.2); Hemolysis Index 7
[2022-02-16 05:50] LABS: BUN/Creatinine Ratio 22
[2022-02-16] MEDS ORDERED: CALCIUM GLUCONATE 1,000 MG/NS 100 ML PREMIX IV ONE ×2 (08:00)
--- NOTE | 2022-02-16 08:20 | Progress Note ---
Assessment and Plan Assessment and plan: History Interval history: This is 36 year old male with Myasthenia Gravis (currently taking Cellcept, Mycophenolate, and Prednisone), ANTON (uses home CPAP) and obesity who presented to the emergency department on 02/06 with complaints of generalized weakness of the past day with worsening symptoms over the same timeframe via EMS. On hospitalist examination patient reported he was able to walk earlier during the day however at the time of evaluation, patient was unable to walk and unable to lift or feel his lower extremities and acknowledged upper extremity weakness and difficulty speaking. Patient was found to have myasthenia gravis crisis and was admitted to the ICU for risk of worsening symptoms. In the emergency department patient was placed on NIPPV and IVIG was ordered. Patient was admitted to the hospital service with Myasthenia Gravis crisis with consults to CCM and neurology Hospital Course to Date: 02/07: S/p X1 dose of IV IG overnight, patient reported feeling much better and stronger this am, moving all extremities. Plan to wean off Bipap this am. Okay to start a diet if patient pass bedside swallow. D/W CCM plan for CT chest w con tomorrow to r/o thymoma. Neurology consulted. 02/08: S/p emergent intubattion by cipriano yesterday. Now intubated and sedated, RASS -2. Neurology recommendations noted. Resumed home meds. Will wean off sedation this am for possible SAT/SBT. CT chest also noted with no evidence of thymoma. Continue IVIG. Attending received call back from [facility]. Transfer was declined, no available ICU beds at this time. They recommend continuing IVIG and possible plasma exchange. Awaiting on Neurology final recommendations. 02/09: S/p Extubation this am. Desated to 85% on 3L NC, SPO2 improved to 88% on 8L NC. This am CXR noted, worsen opacity of the left side. CCM at the bedside, X1 dose of IV Lasix ordered and place patient on Bipap. Low Threshold for reintubation. Plan of care and the high probability for reintubation was discussed with patient at the bedside. Patient verbalized understanding and agree with current care plan. Continue IVIG, Awaiting on Neurology final haider mmendations. 02/10: Tolerated Bipap, now on 2L NC this am, SPO2 at 100%. No s/s of any acute respiratory distress noted. This am CXR also noted with significant improvement. Continue IVIGm and Bipap at night. Incentive Spirometer also ordered. advance diet as tolerated. PT/OT/Speech consulted. 02/11: Completed x5days of IVIG overnight. Stable on RA, still complaining of generalized weakness, other stable. Diet advanced to solid this am, patient is tolerating it. Continue IS and Bipap at night. Encourage mobility as tolerated, PT/OT/Speech consult pending. 02/12: CPAP prn, currently on RA. Improved strength to BLE and BUE per patient. 02/13: Increased weakness reported on encounter. increased steroid dose to prednisone 40 mg po daily. Continue pyridostigmine and cellcept. Possible d/c tomorrow. 02/14: Weakness improved however still continues to have difficulty with strength. Still has right eye lid droop. Patient increased to prednisone 60 mg po daily. He has had 4 myasthenia gravis crises in the past and was initiated on high dose steroids with oysterman taper by her OP neurologist. Pt recommended home with home health care PT. Ambulation is challenging as patient requires a rolling walker. 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 Patient is not a resident of [place]. States his home state is [place]. He has a sister in [place] who's address he uses for mailing purposes. Will work with to coordinate placement. 02/15: worsened strength. Admits to dysphagia and shortness of breath today. Given worsening symptomology transferring back to ICU for close monitoring. Plasma exchange ordered, first tx tomorrow, coordinated with Dr Katya Manley. Will place [facility] today/tomorrow AM for exchanges. Steroid dose increased to Prednisone 80 mg po daily in interim. Will attempt to call neurologist tomorrow AM. 02/16: Plan for plasma exchange today. Labs reviewed, cbc/bmp/fibrinogen all unremarkable. Trialysis catheter placed, pt tolerated procedure well. Taryn Manley will be here today do 4L exchange. A total of 5 exchanges will be completed over 9 days. A total of 20 L 5% albumin will be needed, pharmacy was notified yesterday of this. Continue prednisone 80 mg po daily dose. Assessment and Plan Neuro: Myasthenia Gravis Crisis, h/o Myasthenia Gravis -Patient is from [place], here for work (box truck driver)->sees neurology in [place] (Per patient his neurologist in [place] is Dr. Billie Delgado) -Neurology consulted, appreciate recommendations -s/p IVIG x 5 days -Restarted home prednisone, cellcept, mestinon -Reorientation as needed -Maintain sleep-wake cycle -As needed analgesia -Transfer to [facility] was declined, no available ICU beds at this time. They recommend continuing IVIG and possible plasma exchange -CT chest showed no evidence of thymoma - plasma exchange initiated on 02/16. 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 -CCM consulted, appreciate recommendations -Intubated on 02/07 in the ED with 7.5 OETT at 20 at the teeth for difficulty breathing and noted to be drooling and extubated 02/09 -BiPAP q hs and prn -CT chest w con showed no evidence of thymoma -Pulmonary hygiene bundle -SPO2 monitoring GI: Hepatic Hemangiomas -noted on CT chest -24 hours -1350 mL -ST recommends mechanical soft with chopped meat and gravy applied on top of meat with thin liquid -PPI -BR: Senokot S -Outpatient follow up for US and further workup : NAD -Monitor intake and output -Renally dose medications -Trend BMP prn ID: NAD -f/u blood culture -Monitor WBC and temperature curve Endo: NAD -Avoid hypoglycemia Heme: Leukopenia -Trend CBC -Transfuse hemoglobin less than 7 -SCDs to BLE while in bed The high probability of a clinically significant, sudden or life threatening deterioration of the [neuro/resp] system(s) required my full and direct attention, intervention and personal management. The aggregate critical care time was [60] minutes. This time is in addition to time spent performing reported procedures but includes the following: [x] Data Review and interpretation [x] Patient assessment and monitoring of vital signs [x] Documentation [x] Medication orders and management Disposition Plan: ICU Total Time Spent with Patient (Minutes): 120 History Interval history: Doing well on encounter. Still complaining of weakness, dysphagia, diplopia. Hospitalist Physical - Physical exam Narrative exam: General appearance: Present: no acute distress, well-nourished, obese - EENT Eyes: Present: PERRL (drooping eyelid right side) ENT: dentition normal, hearing decreased - Neck Neck: Present: normal ROM - Respiratory Respiratory effort: normal Respiratory: bilateral: diminished - Cardiovascular Rhythm: regular Heart Sounds: Present: S1 & S2. Absent: systolic murmur, diastolic murmur - Extremities Extremities: no ischemia, pulses intact, pulses symmetrical, No edema, normal temperature, normal color Peripheral Pulses: within normal limits - Abdominal General gastrointestinal: soft, non-tender, non-distended, normal bowel sounds - Integumentary Integumentary: Present: warm, dry - Psychiatric Psychiatric: appropriate mood/affect, cooperative - Neurologic Neurologic: no focal deficits, moves all extremities - Allied Health Allied health notes reviewed: nursing, RT, social work - Constitutional Vitals: Temp Pulse Resp BP Pulse Ox 98.4 F 44 L 15 120/53 100 02/16/22 04:01 02/16/22 06:09 02/16/22 06:09 02/16/22 05:30 02/16/22 06:09 General appearance: Present: no acute distress, well-nourished, obese Results - Labs CBC & Chem 7: 02/16/22 04:52 02/16/22 04:52 Labs: Laboratory Last Values WBC 7.9 K/mm3 (4.5-11.0) 02/16/22 04:52 RBC 4.96 M/mm3 (3.65-5.03) 02/16/22 04:52 Hgb 11.4 gm/dl (11.8-15.2) L 02/16/22 04:52 Hct 35.3 % (35.5-45.6) L 02/16/22 04:52 MCV 71 fl (84-94) L 02/16/22 04:52 MCH 23 pg (28-32) L 02/16/22 04:52 MCHC 32 % (32-34) 02/16/22 04:52 RDW 17.4 % (13.2-15.2) H 02/16/22 04:52 Plt Count 220 K/mm3 (140-440) 02/16/22 04:52 Lymph % (Auto) 20.8 % (13.4-35.0) 02/16/22 04:52 Hart % (Auto) 7.6 % (0.0-7.3) H 02/16/22 04:52 Eos % (Auto) 0.0 % (0.0-4.3) 02/16/22 04:52 Baso % (Auto) 0.1 % (0.0-1.8) 02/16/22 04:52 Lymph # (Auto) 1.6 K/mm3 (1.2-5.4) 02/16/22 04:52 Hart # (Auto) 0.6 K/mm3 (0.0-0.8) 02/16/22 04:52 Eos # (Auto) 0.0 K/mm3 (0.0-0.4) 02/16/22 04:52 Baso # (Auto) 0.0 K/mm3 (0.0-0.1) 02/16/22 04:52 Seg Neutrophils % 71.5 % (40.0-70.0) H 02/16/22 04:52 Seg Neutrophils # 5.6 K/mm3 (1.8-7.7) 02/16/22 04:52 Fibrinogen 296 mg/dl (211-480) 02/16/22 04:52 ABG pH 7.333 pH Units (7.350-7.450) L 02/08/22 09:20 ABG pCO2 48.2 mm Hg 02/08/22 09:20 ABG pO2 114.7 mm Hg (80.0-90.0) H 02/08/22 09:20 ABG HCO3 25.0 mmol/L (20.0-26.0) 02/08/22 09:20 ABG O2 Saturation 97.9 % (95.0-99.0) 02/08/22 09:20 ABG O2 Content 15.1 (0.0-44) 02/08/22 09:20 ABG Base Excess -1.1 mmol/L (-2.0-3.0) 02/08/22 09:20 ABG Hemoglobin 11.1 gm/dl (14.0-18.0) L 02/08/22 09:20 ABG Carboxyhemoglobin 1.4 % (0.0-5.0) 02/08/22 09:20 ABG Methemoglobin 0.5 % (0.0-1.5) 02/08/22 09:20 Oxyhemoglobin 96.1 % (95.0-99.0) 02/08/22 09:20 FiO2 35 % 02/08/22 09:20 Sodium 140 mmol/L (137-145) 02/16/22 04:52 Potassium 4.7 mmol/L (3.6-5.0) 02/16/22 04:52 Chloride 104.4 mmol/L (98-107) 02/16/22 04:52 Carbon Dioxide 28 mmol/L (22-30) 02/16/22 04:52 Anion Gap 12 mmol/L 02/16/22 04:52 BUN 13 mg/dL (9-20) 02/16/22 04:52 Creatinine 0.6 mg/dL (0.8-1.3) L 02/16/22 04:52 Estimated GFR > 60 ml/min 02/16/22 04:52 BUN/Creatinine Ratio 22 % 02/16/22 04:52 Glucose 98 mg/dL (75-100) 02/16/22 04:52 Calcium 9.4 mg/dL (8.4-10.2) 02/16/22 04:52 Total Bilirubin 0.40 mg/dL (0.1-1.2) 02/07/22 04:15 AST 9 units/L (5-40) 02/07/22 04:15 ALT 11 units/L (7-56) 02/07/22 04:15 Alkaline Phosphatase 75 units/L (35-129) 02/07/22 04:15 Total Protein 8.0 g/dL (6.3-8.2) 02/16/22 04:52 Albumin 3.5 g/dL (3.9-5) L 02/16/22 04:52 Albumin/Globulin Ratio 1.3 % 02/07/22 04:15 Roberson/IV: Voiding Method Urinal Active Medications - Current Medications Current Medications: Generic Name Dose Route Start Last Admin Trade Name Freq PRN Reason Stop Dose Admin Acetaminophen 650 mg 02/06/22 15:00 02/10/22 18:11 Acetaminophen 325 Mg Tab PO 650 mg Q6H PRN Administration Pain MILD(1-3)/Fever >100.5/WEINBERG Albuterol 2.5 mg 02/06/22 15:00 02/15/22 21:54 Albuterol 2.5 Mg/3 Ml Nebu IH 2.5 mg Q3HRT PRN Administration Shortness Of Breath Diphenhydramine HCl 25 mg 02/15/22 14:06 Diphenhydramine 50 Mg/Ml Vial IV Q6H PRN Itching Enoxaparin Sodium 40 mg 02/06/22 22:00 02/15/22 21:07 Enoxaparin 40 Mg/0.4 Ml Inj SUB-Q 40 mg QDAY@2200 NESTOR Administration Protocol Famotidine 20 mg 02/12/22 10:00 02/15/22 21:04 Famotidine 20 Mg Tab PO 20 mg BID NESTOR Administration Hydrophilic Ointment 1 applic 02/07/22 10:55 Lip Therapy Vaseline TP Q2HR PRN Dry Lips Multi-Ingred Cream/Lotion/Oil/Oint 1 applic 02/07/22 10:55 Mineral Oil/Petrolatum, White Ophth Oint 3.5 Gm OU Q4HR PRN Dry Eye(s) Mycophenolate Mofetil 1,000 mg 02/12/22 10:00 02/15/22 21:01 Mycophenolate 1000 Mg/5 Ml Oral Liqd PO 1,000 mg BID NESTOR Administration Ondansetron HCl 4 mg 02/08/22 17:00 02/10/22 18:25 Ondansetron 4 Mg/2 Ml Inj IV 4 mg Q8H PRN Administration Nausea And Vomiting Oxycodone/Acetaminophen 1 tab 02/06/22 15:00 Oxycodone /Acetaminophen 5-325mg Tab PO Q16H PRN Pain, Moderate (4-6) Prednisone 80 mg 02/15/22 12:00 02/15/22 14:24 Prednisone 20 Mg Tab PO 80 mg QDAY NESTOR Administration Pyridostigmine [place] 180 mg 02/08/22 10:00 02/15/22 09:39 Pyridostigmine [place] 60 Mg Tab PO 180 mg DAILY NESTOR Administration Senna/Docusate Sodium 1 tab 02/12/22 10:00 02/15/22 21:04 Sennosides/Docusate Sodium 8.6/50 Mg Tab PO 1 tab BID NESTOR Administration Sodium Chloride 10 ml 02/06/22 22:00 02/15/22 21:07 Sodium Chloride 0.9% 10 Ml Flush Syringe IV 10 ml BID NESTOR Administration Sodium Chloride 10 ml 02/06/22 13:59 Sodium Chloride 0.9% 10 Ml Flush Syringe IV PRN PRN LINE FLUSH Nutrition/Malnutrition Assess - Dietary Evaluation Nutrition/Malnutrition Findings: Nutrition Notes Start: 02/07/22 13:09 Freq: Status: Active Protocol: Document 02/12/22 15:28 LATOYA (Rec: 02/12/22 15:44 LATOYA [id number]) Nutrition Notes Initial or Follow up Reassessment Other Pertinent Diagnosis Myasthenia gravis crisis Current Diet Mech soft with chopped meats Labs/Tests Reviewed Pertinent Medications Reviewed Height 5 ft 10 in Weight 102.194 kg Zenda Body Weight (kg) 75.45 BMI 32.3 Weight Status Obese Subjective/Other Information Pt extubated on 02/09. Per ACADEMIC ADVISOR evaluation on 02/11, pt tolerated [facility] soft diet with chopped meats/gravy on meats. Observed consumption of 100% of entree for lunch today. He says the green beans and fruit cup contains too much magnesium for him; he avoids foods containing >10mg of magnesium. Burn Absent Trauma Absent #1 Nutrition Diagnosis Inadequate oral intake As Evidenced by Signs and Symptoms pt tolerating PO diet Diagnosis Progress(for reassessment Improved documentation) Is patient on ventilator? No Is Patient Ambulatory and/or Out of Bed No REE-([place]-confined to bed) 2352.060 Kcal/Kg value to use for calculation 18 Approximate Energy Requirements Using 1839 kcal/Kg Calculation Used for Recommendations Kcal/kg Additional Notes Pro needs 0.8-1g/kg adjBW: 71- 89g/day Fluid needs 1ml/kcal Nutrition Intervention Change Diet Order: Continue current diet order Goal #1 PO intake to meet at least 75% energy and pro needs Follow-Up By: 02/20/22 Additional Comments F/U: intakes, wt
[2022-02-16] MEDS ORDERED: LORazepam 2 MG/ML VIAL IV SCH (08:30)
--- NOTE | 2022-02-16 10:52 | XRay Report ---
CHEST 1 VIEW 02/16/2022 10:22 AM INDICATION / CLINICAL INFORMATION: trialysis placement. COMPARISON: 02/10/2022 FINDINGS: SUPPORT DEVICES: A right IJ venous catheter has been inserted which terminates near the cavoatrial ju nction in good position. HEART / MEDIASTINUM: No significant abnormality. LUNGS / PLEURA: No significant pulmonary or pleural abnormality. No pneumothorax. ADDITIONAL FINDINGS: No significant additional findings. IMPRESSION: 1. No acute findings. Adequate central line placement. Signer Name: Yunior oYrk Jr, MD Signed: 02/16/2022 10:47 AM Workstation Name: [id number]
[2022-02-16] MEDS: PYRIDOSTIGMINE BROMIDE 60 MG TAB PO SCH (11:02)
[2022-02-16] MEDS: predniSONE 20 MG TAB PO SCH (11:03)
[2022-02-16] MEDS: oxyCODONE /ACETAMINOPHEN 5-325MG TAB PO PRN (11:03)
[2022-02-16] MEDS: SENNOSIDES/DOCUSATE SODIUM 8.6/50 MG TAB PO SCH ×2 (11:04→21:29)
[2022-02-16] MEDS: FAMOTIDINE 20 MG TAB PO SCH ×2 (11:04→21:28)
[2022-02-16] MEDS: MYCOPHENOLATE PO SCH ×2 (11:05→21:28)
--- NOTE | 2022-02-16 11:11 | Progress Note ---
Assessment and Plan Myasthenic crisis Obesity Possible ANTON / OHS Blurry vision Mild hypokalemia Mild metabolic acidosis - Plasmapharesis X 5 treatments - repeat FVC / NIF manuver in am (equivocal results yesterday) - continue BIPAP scheduled qhd with prn daytime use - continue to avoid aminoglycosides, flouroquinolones etc - neurology consultation when available - transfer request refused earlier in admission - continue care as below otherwise; - continue accuchecks with glycemic control per SSI (While critically ill target blood glucose of 140-180 mg/dL; avoid hypoglycemia) - continue to wean supplemental oxygen for target O2 sat's > 90% acutely - aspiration precautions - prn bronchodilators with pulmonary hygiene per RT - avoid nephrotoxins, renally dose all medications - continue to avoid benzodiazepine's, reduce the possibility of delirium - AB's per ID rec's - prn analgesia per pain score - Maintenance of sleep-wake cycle, avoid delirium - G.I. & VTE prophylaxis - PT/OT/ROM exercises - mobility protocols for pressure ulcer prophylaxis - Monitor hemodynamics closely - continue other care per attending / other consultants - discharge planning ongoing concurrently .... Re-evaluate in am & prn CONDITION: CRITICAL PROGNOSIS: GUARDED CODE STATUS: FULL CODE The high probability of a clinically significant, sudden or life-threatening deterioration of the [respiratory, cardiovascular & neurologic] system(s) required my full and direct attention, intervention and personal management. The aggregate critical care time was [33] minutes without overlap. Time includes spent on; [x] Data Review and interpretation [x] Patient assessment and monitoring of vital signs [x] Documentation [x] Medication orders and management Subjective Date of service: 02/16/22 Principal diagnosis: Myasthenic crisis; Obesity; Possible ANTON/OHS; Blurry visi on; Hypokalemia Interval history: Patient is seen today for: Myasthenic crisis; Obesity; Possible ANTON / OHS; Blurry vision; Mild hypokalemia; Mild metabolic acidosis Seen and examined at bedside; 24hour events reviewed; nursing and respiratory care staff consulted; no adverse overnight events reported to me; resting in bed; symtomatic again and to begin Plasmapharesis today; double vision is persistent; denies acute chest pain or SOB; afebrile Objective Vital Signs - 12hr 02/15/22 02/16/22 02/16/22 23:30 00:00 00:03 Temperature Pulse Rate 54 L 51 L 55 L Pulse Rate [ From Monitor] Respiratory 22 14 18 Rate Blood Pressure 117/52 117/52 127/65 O2 Sat by Pulse 99 100 98 Oximetry 02/16/22 02/16/22 02/16/22 00:30 01:00 01:30 Temperature Pulse Rate 48 L 45 L 46 L Pulse Rate [ From Monitor] Respiratory 16 16 16 Rate Blood Pressure 123/54 123/54 107/54 O2 Sat by Pulse 100 100 99 Oximetry 02/16/22 02/16/22 02/16/22 01:39 02:00 02:25 Temperature Pulse Rate 46 L 46 L 46 L Pulse Rate [ From Monitor] Respiratory 10 L Rate Blood Pressure 125/62 O2 Sat by Pulse 99 98 Oximetry 02/16/22 02/16/22 02/16/22 02:30 03:00 03:30 Temperature Pulse Rate 44 L 46 L 40 L Pulse Rate [ From Monitor] Respiratory 14 17 14 Rate Blood Pressure 125/62 125/62 115/52 O2 Sat by Pulse 100 100 100 Oximetry 02/16/22 02/16/22 02/16/22 04:00 04:01 04:15 Temperature 98.4 F Pulse Rate 39 L 41 L Pulse Rate [ From Monitor] Respiratory 14 Rate Blood Pressure 115/52 O2 Sat by Pulse 100 98 Oximetry 02/16/22 02/16/22 02/16/22 04:30 05:00 05:30 Temperature Pulse Rate 40 L 61 Pulse Rate [ From Monitor] Respiratory 11 L 15 18 Rate Blood Pressure 119/53 119/53 120/53 O2 Sat by Pulse 100 100 98 Oximetry 02/16/22 02/16/22 02/16/22 06:09 06:30 07:00 Temperature Pulse Rate 44 L 42 L 45 L Pulse Rate [ From Monitor] Respiratory 15 14 16 Rate Blood Pressure 126/63 126/63 O2 Sat by Pulse 100 100 100 Oximetry 02/16/22 02/16/22 02/16/22 07:30 08:00 08:30 Temperature 98.3 F Pulse Rate 39 L 39 L 42 L Pulse Rate [ 78 From Monitor] Respiratory 16 14 15 Rate Blood Pressure 126/42 126/42 124/44 O2 Sat by Pulse 100 100 100 Oximetry 02/16/22 09:00 Temperature Pulse Rate 59 L Pulse Rate [ From Monitor] Respiratory 20 Rate Blood Pressure 124/44 O2 Sat by Pulse 100 Oximetry Constitutional: lethargic (somnolent really), appears uncomfortable, other (young obese male without increased respiratory effort at rest) Eyes: non-icteric ENT: oropharynx moist Neck: supple, no lymphadenopathy, no JVD, other (large circumference) Effort: normal Ascultation: Bilateral: clear, diminished breath sounds Percussion: Bilateral: not dull Cardiovascular: regular rate and rhythm Gastrointestinal: normoactive bowel sounds, soft, non-tender, non-distended (protuberant) Integumentary: normal Extremities: no cyanosis, no edema, pulses normal, no ischemia or petechiae Neurologic: non-focal exam (grossly), pupils equal and round, CN II-XII normal, other (weak (3/5)) Psychiatric: mood appropriate, affect normal CBC and BMP: 02/16/22 04:52 02/16/22 04:52 ABG, PT/INR, D-dimer: ABG ABG pH 7.333 pH Units (7.350-7.450) L 02/08/22 09:20 ABG pCO2 48.2 mm Hg 02/08/22 09:20 ABG pO2 114.7 mm Hg (80.0-90.0) H 02/08/22 09:20 ABG O2 Saturation 97.9 % (95.0-99.0) 02/08/22 09:20 Abnormal lab findings: Abnormal Labs 02/06/22 02/06/22 02/06/22 12:39 12:39 13:59 WBC RBC 5.75 H Hgb Hct MCV 74 L MCH 23 L MCHC 30 L RDW 16.9 H Lymph % (Auto) 6.4 L Tyrrell % (Auto) Lymph # (Auto) 0.5 L Seg Neutrophils % 89.3 H ABG pH ABG pO2 ABG Hemoglobin 12.6 L Oxyhemoglobin Potassium 3.5 L Chloride 109.1 H Carbon Dioxide 20 L Creatinine 0.7 L Glucose 113 H Albumin 02/07/22 02/07/22 02/08/22 04:15 12:00 04:23 WBC RBC 5.10 H Hgb 11.5 L 11.0 L Hct MCV 72 L 74 L MCH 23 L 22 L MCHC 30 L RDW 17.3 H 17.1 H Lymph % (Auto) Tyrrell % (Auto) 9.1 H Lymph # (Auto) Seg Neutrophils % ABG pH ABG pO2 72.6 L ABG Hemoglobin 12.2 L Oxyhemoglobin 94.4 L Potassium Chloride Carbon Dioxide Creatinine Glucose Albumin 02/08/22 02/08/22 02/09/22 04:23 09:20 04:50 WBC RBC Hgb 10.4 L Hct 33.7 L MCV 73 L MCH 22 L MCHC 31 L RDW 17.5 H Lymph % (Auto) Tyrrell % (Auto) Lymph # (Auto) Seg Neutrophils % ABG pH 7.333 L ABG pO2 114.7 H ABG Hemoglobin 11.1 L Oxyhemoglobin Potassium Chloride 109.3 H Carbon Dioxide Creatinine 0.6 L Glucose Albumin 02/09/22 02/10/22 02/11/22 04:50 04:50 04:38 WBC 4.4 L 3.3 L RBC Hgb 10.1 L 10.4 L Hct 32.9 L 33.6 L MCV 73 L 73 L MCH 22 L 23 L MCHC 31 L 31 L RDW 17.2 H 17.0 H Lymph % (Auto) Tyrrell % (Auto) Lymph # (Auto) Seg Neutrophils % ABG pH ABG pO2 ABG Hemoglobin Oxyhemoglobin Potassium Chloride Carbon Dioxide Creatinine Glucose 107 H Albumin 02/11/22 02/12/22 02/13/22 04:38 04:25 04:17 WBC 3.7 L 3.5 L RBC Hgb 10.5 L 10.8 L Hct 34.5 L MCV 73 L 73 L MCH 22 L 22 L MCHC 30 L 30 L RDW 16.9 H 17.5 H Lymph % (Auto) Tyrrell % (Auto) Lymph # (Auto) Seg Neutrophils % ABG pH ABG pO2 ABG Hemoglobin Oxyhemoglobin Potassium Chloride Carbon Dioxide Creatinine 0.7 L Glucose 101 H Albumin 02/16/22 02/16/22 04:52 04:52 WBC RBC Hgb 11.4 L Hct 35.3 L MCV 71 L MCH 23 L MCHC RDW 17.4 H Lymph % (Auto) Tyrrell % (Auto) 7.6 H Lymph # (Auto) Seg Neutrophils % 71.5 H ABG pH ABG pO2 ABG Hemoglobin Oxyhemoglobin Potassium Chloride Carbon Dioxide Creatinine 0.6 L Glucose Albumin 3.5 L Chest x-ray: image reviewed ([facility] Vascath in place ) Allied health notes reviewed: nursing
--- NOTE | 2022-02-16 11:33 | Event Note ---
Date: 02/16/22 CONSENT: Consent was obtained from the patient prior to the procedure. Indications, risks, and benefits were explained at length. ATTENDING PHYSICIAN: Dr. Navi Yoder PROCEDURE SUMMARY: A time out was performed. My hands were washed immediately prior to the procedure. I wore a surgical cap, mask with protective eyewear, full gown and sterile gloves throughout the procedure. The patient was placed in Trendelenburg position. Right neck region was prepped using chlorhexidine scrub and draped in sterile fashion using a full drape and sterile probe cover and sterile gel employed. The medial and lateral heads of the sternocleidomastoid muscle were identified as was the carotid pulse. The Internal Jugular vein was identified using the ultrasound. Anesthesia was achieved over the vein using 1% lidocaine. Using real-time out of plane guidance, the introducer needle was inserted into the Internal Jugular vein under direct ultrasound visualization. Venous blood was withdrawn. The syringe was removed and a guidewire was advanced into the introducer needle. The guidewire was visualized in the Internal Jugular Vein by ultrasound. A small incision was made at the skin surface with a scalpel and the introducer needle was exchanged for a dilator over the guidewire. After appropriate dilation was obtained, the dilator was exchanged over the wire for a trialysis catheter. The wire was removed and the catheter was sutured in place A sterile sorbaview shield was placed over the catheter at the insertion site. The patient tolerated the procedure without any hemodynamic compromise. At time of procedure completion, all ports aspirated and flushed properly. Post-procedure chest x-ray confirmed appropriate placement. CCT: +60 min
[2022-02-16] MEDS: ACETAMINOPHEN 325 MG TAB PO PRN (11:48)
[2022-02-16] MEDS: ALBUMIN HUMAN 5% (25 GM/500 ML) INJ IV SCH (12:00)
[2022-02-16] MEDS: CALCIUM GLUCONATE 1,000 MG/NS 100 ML PREMIX IV SCH (14:15)
[2022-02-16] MEDS: ENOXAPARIN 40 MG/0.4 ML INJ SUB-Q SCH (21:28)
[2022-02-17] MEDS: ACETAMINOPHEN 325 MG TAB PO PRN ×2 (05:08→19:48)
[2022-02-17] MEDS: predniSONE 20 MG TAB PO SCH (09:06)
[2022-02-17] MEDS: FAMOTIDINE 20 MG TAB PO SCH ×2 (09:07→21:22)
[2022-02-17] MEDS: SENNOSIDES/DOCUSATE SODIUM 8.6/50 MG TAB PO SCH ×2 (09:07→21:22)
[2022-02-17] MEDS: PYRIDOSTIGMINE BROMIDE 60 MG TAB PO SCH (09:07)
[2022-02-17] MEDS: MYCOPHENOLATE PO SCH ×2 (09:07→21:22)
--- NOTE | 2022-02-17 10:33 | Progress Note ---
Assessment and Plan Assessment and plan: History Interval history: This is 36 year old male with Myasthenia Gravis (currently taking Cellcept, Mycophenolate, and Prednisone), ANTON (uses home CPAP) and obesity who presented to the emergency department on 02/06 with complaints of generalized weakness of the past day with worsening symptoms over the same timeframe via EMS. On hospitalist examination patient reported he was able to walk earlier during the day however at the time of evaluation, patient was unable to walk and unable to lift or feel his lower extremities and acknowledged upper extremity weakness and difficulty speaking. Patient was found to have myasthenia gravis crisis and was admitted to the ICU for risk of worsening symptoms. In the emergency department patient was placed on NIPPV and IVIG was ordered. Patient was admitted to the hospital service with Myasthenia Gravis crisis with consults to CCM and neurology Hospital Course to Date: 02/07: S/p X1 dose of IV IG overnight, patient reported feeling much better and stronger this am, moving all extremities. Plan to wean off Bipap this am. Okay to start a diet if patient pass bedside swallow. D/W CCM plan for CT chest w con tomorrow to r/o thymoma. Neurology consulted. 02/08: S/p emergent intubattion by cipriano yesterday. Now intubated and sedated, RASS -2. Neurology recommendations noted. Resumed home meds. Will wean off sedation this am for possible SAT/SBT. CT chest also noted with no evidence of thymoma. Continue IVIG. Attending received call back from [facility]. Transfer was declined, no available ICU beds at this time. They recommend continuing IVIG and possible plasma exchange. Awaiting on Neurology final recommendations. 02/09: S/p Extubation this am. Desated to 85% on 3L NC, SPO2 improved to 88% on 8L NC. This am CXR noted, worsen opacity of the left side. CCM at the bedside, X1 dose of IV Lasix ordered and place patient on Bipap. Low Threshold for reintubation. Plan of care and the high probability for reintubation was discussed with patient at the bedside. Patient verbalized understanding and agree with current care plan. Continue IVIG, Awaiting on Neurology final haider mmendations. 02/10: Tolerated Bipap, now on 2L NC this am, SPO2 at 100%. No s/s of any acute respiratory distress noted. This am CXR also noted with significant improvement. Continue IVIGm and Bipap at night. Incentive Spirometer also ordered. advance diet as tolerated. PT/OT/Speech consulted. 02/11: Completed x5days of IVIG overnight. Stable on RA, still complaining of generalized weakness, other stable. Diet advanced to solid this am, patient is tolerating it. Continue IS and Bipap at night. Encourage mobility as tolerated, PT/OT/Speech consult pending. 02/12: CPAP prn, currently on RA. Improved strength to BLE and BUE per patient. 02/13: Increased weakness reported on encounter. increased steroid dose to prednisone 40 mg po daily. Continue pyridostigmine and cellcept. Possible d/c tomorrow. 02/14: Weakness improved however still continues to have difficulty with strength. Still has right eye lid droop. Patient increased to prednisone 60 mg po daily. He has had 4 myasthenia gravis crises in the past and was initiated on high dose steroids with principal account clerk taper by her OP neurologist. Pt recommended home with home health care PT. Ambulation is challenging as patient requires a rolling walker. 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 Patient is not a resident of [place]. States his home state is [place]. He has a sister in [place] who's address he uses for mailing purposes. Will work with CM to coordinate placement. 02/15: worsened strength. Admits to dysphagia and shortness of breath today. Given worsening symptomology transferring back to ICU for close monitoring. Plasma exchange ordered, first tx tomorrow, coordinated with Dr Katya Manley. Will place [facility] today/tomorrow AM for exchanges. Steroid dose increased to Prednisone 80 mg po daily in interim. Will attempt to call neurologist tomorrow AM. 02/16: Plan for plasma exchange today. Labs reviewed, cbc/bmp/fibrinogen all unremarkable. Trialysis catheter placed, pt tolerated procedure well. Taryn Manley will be here today do 4L exchange. A total of 5 exchanges will be completed over 9 days. A total of 20 L 5% albumin will be needed, pharmacy was notified yesterday of this. Continue prednisone 80 mg po daily dose. 02/17: No overnight events. No acute complaints. Tolerated PLEX well. Continue steroids and will follow for symptom improvement. 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 Billie Delgado) -Neurology consulted, appreciate recommendations -s/p IVIG x 5 days -Restarted home prednisone, cellcept, mestinon -Reorientation as needed -Maintain sleep-wake cycle -As needed analgesia -Transfer to [facility] was declined, no available ICU beds at this time. They recommend continuing IVIG and possible plasma exchange -CT chest showed no evidence of thymoma - plasma exchange initiated on 02/16. 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 -CCM consulted, appreciate recommendations -Intubated on 02/07 in the ED with 7.5 OETT at 20 at the teeth for difficulty breathing and noted to be drooling and extubated 02/09 -BiPAP q hs and prn -CT chest w con showed no evidence of thymoma -Pulmonary hygiene bundle -SPO2 monitoring GI: Hepatic Hemangiomas -noted on CT chest -24 hours -1350 mL -ST recommends mechanical soft with chopped meat and gravy applied on top of meat with thin liquid -PPI -BR: Senokot S -Outpatient follow up for US and further workup : NAD -Monitor intake and output -Renally dose medications -Trend BMP prn ID: NAD -f/u blood culture -Monitor WBC and temperature curve Endo: NAD -Avoid hypoglycemia Heme: Leukopenia -Trend CBC -Transfuse hemoglobin less than 7 -SCDs to BLE while in bed The high probability of a clinically significant, sudden or life threatening deterioration of the [neuro/resp] system(s) required my full and direct attention, intervention and personal management. The aggregate critical care time was [60] minutes. This time is in addition to time spent performing reported procedures but includes the following: [x] Data Review and interpretation [x] Patient assessment and monitoring of vital signs [x] Documentation [x] Medication orders and management Disposition Plan: ICU Total Time Spent with Patient (Minutes): 60 History Interval history: No acute complaints on encounter. Hospitalist Physical - Physical exam Narrative exam: General appearance: Present: no acute distress, well-nourished, obese - EENT Eyes: Present: PERRL (drooping eyelid right side) ENT: dentition normal, hearing decreased - Neck Neck: Present: normal ROM - Respiratory Respiratory effort: normal Respiratory: bilateral: diminished - Cardiovascular Rhythm: regular Heart Sounds: Present: S1 & S2. Absent: systolic murmur, diastolic murmur - Extremities Extremities: no ischemia, pulses intact, pulses symmetrical, No edema, normal temperature, normal color Peripheral Pulses: within normal limits - Abdominal General gastrointestinal: soft, non-tender, non-distended, normal bowel sounds - Integumentary Integumentary: Present: warm, dry - Psychiatric Psychiatric: appropriate mood/affect, cooperative - Neurologic Neurologic: no focal deficits, moves all extremities - Allied Health Allied health notes reviewed: nursing, RT, social work - Constitutional Vitals: Temp Pulse Resp BP Pulse Ox 98.1 F 69 11 L 125/53 100 02/17/22 07:00 02/17/22 09:00 02/17/22 09:00 02/17/22 09:00 02/17/22 09:00 General appearance: Present: no acute distress, well-nourished, obese Results - Labs CBC & Chem 7: 02/16/22 04:52 02/16/22 04:52 Labs: Laboratory Last Values WBC 7.9 K/mm3 (4.5-11.0) 02/16/22 04:52 RBC 4.96 M/mm3 (3.65-5.03) 02/16/22 04:52 Hgb 11.4 gm/dl (11.8-15.2) L 02/16/22 04:52 Hct 35.3 % (35.5-45.6) L 02/16/22 04:52 MCV 71 fl (84-94) L 02/16/22 04:52 MCH 23 pg (28-32) L 02/16/22 04:52 MCHC 32 % (32-34) 02/16/22 04:52 RDW 17.4 % (13.2-15.2) H 02/16/22 04:52 Plt Count 220 K/mm3 (140-440) 02/16/22 04:52 Lymph % (Auto) 20.8 % (13.4-35.0) 02/16/22 04:52 [place] % (Auto) 7.6 % (0.0-7.3) H 02/16/22 04:52 Eos % (Auto) 0.0 % (0.0-4.3) 02/16/22 04:52 Baso % (Auto) 0.1 % (0.0-1.8) 02/16/22 04:52 Lymph # (Auto) 1.6 K/mm3 (1.2-5.4) 02/16/22 04:52 [place] # (Auto) 0.6 K/mm3 (0.0-0.8) 02/16/22 04:52 Eos # (Auto) 0.0 K/mm3 (0.0-0.4) 02/16/22 04:52 Baso # (Auto) 0.0 K/mm3 (0.0-0.1) 02/16/22 04:52 Seg Neutrophils % 71.5 % (40.0-70.0) H 02/16/22 04:52 Seg Neutrophils # 5.6 K/mm3 (1.8-7.7) 02/16/22 04:52 Fibrinogen 296 mg/dl (211-480) 02/16/22 04:52 ABG pH 7.333 pH Units (7.350-7.450) L 02/08/22 09:20 ABG pCO2 48.2 mm Hg 02/08/22 09:20 ABG pO2 114.7 mm Hg (80.0-90.0) H 02/08/22 09:20 ABG HCO3 25.0 mmol/L (20.0-26.0) 02/08/22 09:20 ABG O2 Saturation 97.9 % (95.0-99.0) 02/08/22 09:20 ABG O2 Content 15.1 (0.0-44) 02/08/22 09:20 ABG Base Excess -1.1 mmol/L (-2.0-3.0) 02/08/22 09:20 ABG Hemoglobin 11.1 gm/dl (14.0-18.0) L 02/08/22 09:20 ABG Carboxyhemoglobin 1.4 % (0.0-5.0) 02/08/22 09:20 ABG Methemoglobin 0.5 % (0.0-1.5) 02/08/22 09:20 Oxyhemoglobin 96.1 % (95.0-99.0) 02/08/22 09:20 FiO2 35 % 02/08/22 09:20 Sodium 140 mmol/L (137-145) 02/16/22 04:52 Potassium 4.7 mmol/L (3.6-5.0) 02/16/22 04:52 Chloride 104.4 mmol/L (98-107) 02/16/22 04:52 Carbon Dioxide 28 mmol/L (22-30) 02/16/22 04:52 Anion Gap 12 mmol/L 02/16/22 04:52 BUN 13 mg/dL (9-20) 02/16/22 04:52 Creatinine 0.6 mg/dL (0.8-1.3) L 02/16/22 04:52 Estimated GFR > 60 ml/min 02/16/22 04:52 BUN/Creatinine Ratio 22 % 02/16/22 04:52 Glucose 98 mg/dL (75-100) 02/16/22 04:52 Calcium 9.4 mg/dL (8.4-10.2) 02/16/22 04:52 Total Bilirubin 0.40 mg/dL (0.1-1.2) 02/07/22 04:15 AST 9 units/L (5-40) 02/07/22 04:15 ALT 11 units/L (7-56) 02/07/22 04:15 Alkaline Phosphatase 75 units/L (35-129) 02/07/22 04:15 Total Protein 8.0 g/dL (6.3-8.2) 02/16/22 04:52 Albumin 3.5 g/dL (3.9-5) L 02/16/22 04:52 Albumin/Globulin Ratio 1.3 % 02/07/22 04:15 [place]/IV: Voiding Method Urinal Active Medications - Current Medications Current Medications: Generic Name Dose Route Start Last Admin Trade Name Freq PRN Reason Stop Dose Admin Acetaminophen 650 mg 02/06/22 15:00 02/17/22 05:08 Acetaminophen 325 Mg Tab PO 650 mg Q6H PRN Administration Pain MILD(1-3)/Fever >100.5/WEINBERG Albumin Human 200 gm 02/16/22 13:00 02/16/22 12:00 Albumin Human 5% (25 Gm/500 Ml) Inj IV 02/24/22 13:01 200 gm Q48H NESTOR Administration Albuterol 2.5 mg 02/06/22 15:00 02/15/22 21:54 Albuterol 2.5 Mg/3 Ml Nebu IH 2.5 mg Q3HRT PRN Administration Shortness Of Breath Diphenhydramine HCl 25 mg 02/15/22 14:06 02/16/22 11:49 Diphenhydramine 50 Mg/Ml Vial IV 25 mg Q6H PRN Administration Itching Enoxaparin Sodium 40 mg 02/06/22 22:00 02/16/22 21:28 Enoxaparin 40 Mg/0.4 Ml Inj SUB-Q 40 mg QDAY@2200 NESTOR Administration Protocol Famotidine 20 mg 02/12/22 10:00 02/17/22 09:07 Famotidine 20 Mg Tab PO 20 mg BID NESTOR Administration Hydrophilic Ointment 1 applic 02/07/22 10:55 Lip Therapy Vaseline TP Q2HR PRN Dry Lips Multi-Ingred Cream/Lotion/Oil/Oint 1 applic 02/07/22 10:55 Mineral Oil/Petrolatum, White Ophth Oint 3.5 Gm OU Q4HR PRN Dry Eye(s) Mycophenolate Mofetil 1,000 mg 02/12/22 10:00 02/17/22 09:07 Mycophenolate 1000 Mg/5 Ml Oral Liqd PO 1,000 mg BID NESTOR Administration Ondansetron HCl 4 mg 02/08/22 17:00 02/10/22 18:25 Ondansetron 4 Mg/2 Ml Inj IV 4 mg Q8H PRN Administration Nausea And Vomiting Oxycodone/Acetaminophen 1 tab 02/06/22 15:00 02/16/22 11:03 Oxycodone /Acetaminophen 5-325mg Tab PO 1 tab Q16H PRN Administration Pain, Moderate (4-6) Prednisone 80 mg 02/15/22 12:00 02/17/22 09:06 Prednisone 20 Mg Tab PO 80 mg QDAY NESTOR Administration Pyridostigmine [place] 180 mg 02/08/22 10:00 02/17/22 09:07 Pyridostigmine [place] 60 Mg Tab PO 180 mg DAILY NESTOR Administration Senna/Docusate Sodium 1 tab 02/12/22 10:00 02/17/22 09:07 Sennosides/Docusate Sodium 8.6/50 Mg Tab PO 1 tab BID NESTOR Administration Sodium Chloride 10 ml 02/06/22 22:00 02/17/22 09:07 Sodium Chloride 0.9% 10 Ml Flush Syringe IV 10 ml BID NESTOR Administration Sodium Chloride 10 ml 02/06/22 13:59 Sodium Chloride 0.9% 10 Ml Flush Syringe IV PRN PRN LINE FLUSH Nutrition/Malnutrition Assess - Dietary Evaluation Nutrition/Malnutrition Findings: Nutrition Notes Start: 02/07/22 13:09 Freq: Status: Active Protocol: Document 02/12/22 15:28 LATOYA (Rec: 02/12/22 15:44 LATOYA [id number]) Nutrition Notes Initial or Follow up Reassessment Other Pertinent Diagnosis Myasthenia gravis crisis Current Diet Mech soft with chopped meats Labs/Tests Reviewed Pertinent Medications Reviewed Height 5 ft 10 in Weight 102.194 kg [place] Body Weight (kg) 75.45 BMI 32.3 Weight Status Obese Subjective/Other Information Pt extubated on 02/09. Per RENTAL SALESPERSON evaluation on 02/11, pt tolerated mech soft diet with chopped meats/gravy on meats. Observed consumption of 100% of entree for lunch today. He says the green beans and fruit cup contains too much magnesium for him; he avoids foods containing >10mg of magnesium. Burn Absent Trauma Absent #1 Nutrition Diagnosis Inadequate oral intake As Evidenced by Signs and Symptoms pt tolerating PO diet Diagnosis Progress(for reassessment Improved documentation) Is patient on ventilator? No Is Patient Ambulatory and/or Out of Bed No REE-([facility]-confined to bed) 2352.060 Kcal/Kg value to use for calculation 18 Approximate Energy Requirements Using 1839 kcal/Kg Calculation Used for Recommendations Kcal/kg Additional Notes Pro needs 0.8-1g/kg adjBW: 71- 89g/day Fluid needs 1ml/kcal Nutrition Intervention Change Diet Order: Continue current diet order Goal #1 PO intake to meet at least 75% energy and pro needs Follow-Up By: 02/20/22 Additional Comments F/U: intakes, wt
--- NOTE | 2022-02-17 13:00 | Progress Note ---
Assessment and Plan Myasthenic crisis Obesity Possible ANTON / OHS Blurry vision Mild hypokalemia Mild metabolic acidosis - repeat FVC / NIF manuver ordered - complete Plasmapharesis X 5 treatments - neurology re-consultation when available - transfer request refused earlier in admission - continue care as below otherwise; - continue BIPAP scheduled qhs with prn daytime use - continue to avoid aminoglycosides, flouroquinolones etc - continue accuchecks with glycemic control per SSI (While critically ill target blood glucose of 140-180 mg/dL; avoid hypoglycemia) - continue to wean supplemental oxygen for target O2 sat's > 90% acutely - aspiration precautions - prn bronchodilators with pulmonary hygiene per RT - avoid nephrotoxins, renally dose all medications - continue to avoid benzodiazepine's, reduce the possibility of delirium - AB's per ID rec's - prn analgesia per pain score - Maintenance of sleep-wake cycle, avoid delirium - G.I. & VTE prophylaxis - PT/OT/ROM exercises - mobility protocols for pressure ulcer prophylaxis - Monitor hemodynamics closely - continue other care per attending / other consultants - discharge planning ongoing concurrently .... Re-evaluate in am & prn CONDITION: CRITICAL PROGNOSIS: GUARDED CODE STATUS: FULL CODE The high probability of a clinically significant, sudden or life-threatening deterioration of the [respiratory, cardiovascular & neurologic] system(s) required my full and direct attention, intervention and personal management. The aggregate critical care time was [31] minutes without overlap. Time includes spent on; [x] Data Review and interpretation [x] Patient assessment and monitoring of vital signs [x] Documentation [x] Medication orders and management Subjective Date of service: 02/17/22 Principal diagnosis: Myasthenic crisis; Obesity; Possible ANTON/OHS; Blurry vision; Hypokalemia Interval history: Patient is seen today for: Myasthenic crisis; Obesity; Possible ANTON / OHS; Blurry vision; Mild hypokalemia; Mild metabolic acidosis Seen and examined at bedside; 24hour events reviewed; nursing and respiratory care staff consulted; no adverse overnight events reported to me; resting in bed; still symptomatic but feels a a little better; still with diplopia; denies chest pain or SOB Objective Vital Signs - 12hr 02/17/22 02/17/22 02/17/22 01:30 01:31 02:00 Temperature Pulse Rate 44 L 46 L 43 L Pulse Rate [ From Monitor] Respiratory 15 12 16 Rate Blood Pressure 113/52 115/55 115/52 O2 Sat by Pulse 100 100 100 Oximetry 02/17/22 02/17/22 02/17/22 02:30 03:00 03:27 Temperature 99.4 F Pulse Rate 43 L 43 L Pulse Rate [ From Monitor] Respiratory 13 14 Rate Blood Pressure 115/52 110/45 O2 Sat by Pulse 100 100 Oximetry 02/17/22 02/17/22 02/17/22 03:30 04:00 04:30 Temperature Pulse Rate 42 L 42 L 43 L Pulse Rate [ 51 L From Monitor] Respiratory 13 16 10 L Rate Blood Pressure 110/45 116/45 117/50 O2 Sat by Pulse 100 100 100 Oximetry 02/17/22 02/17/22 02/17/22 05:00 05:30 06:00 Temperature Pulse Rate 46 L 46 L 53 L Pulse Rate [ From Monitor] Respiratory 16 16 13 Rate Blood Pressure 134/59 133/55 125/47 O2 Sat by Pulse 100 100 100 Oximetry 02/17/22 02/17/22 02/17/22 06:30 07:00 07:30 Temperature 98.1 F Pulse Rate 41 L 48 L 48 L Pulse Rate [ From Monitor] Respiratory 15 13 12 Rate Blood Pressure 129/55 136/54 143/62 O2 Sat by Pulse 100 100 100 Oximetry 02/17/22 02/17/22 02/17/22 08:00 08:19 08:30 Temperature Pulse Rate 59 L 74 Pulse Rate [ 61 From Monitor] Respiratory 15 17 Rate Blood Pressure 137/72 137/72 O2 Sat by Pulse 100 100 100 Oximetry 02/17/22 02/17/22 02/17/22 09:00 09:30 10:00 Temperature Pulse Rate 69 79 74 Pulse Rate [ From Monitor] Respiratory 11 L 19 17 Rate Blood Pressure 125/53 118/57 118/57 O2 Sat by Pulse 100 100 100 Oximetry 02/17/22 02/17/22 02/17/22 10:30 11:00 11:30 Temperature 98.2 F Pulse Rate 78 72 78 Pulse Rate [ From Monitor] Respiratory 16 19 17 Rate Blood Pressure 121/49 124/64 119/69 O2 Sat by Pulse 100 100 100 Oximetry 02/17/22 12:00 Temperature Pulse Rate 78 Pulse Rate [ 77 From Monitor] Respiratory 10 L Rate Blood Pressure 137/74 O2 Sat by Pulse 99 Oximetry Constitutional: lethargic (somnolent really), appears uncomfortable, other (you ng obese male without increased respiratory effort at rest) Eyes: non-icteric ENT: oropharynx moist Neck: supple, no lymphadenopathy, no JVD, other (large circumference) Effort: normal Ascultation: Bilateral: clear, diminished breath sounds Percussion: Bilateral: not dull Cardiovascular: regular rate and rhythm Gastrointestinal: normoactive bowel sounds, soft, non-tender, non-distended (protuberant) Integumentary: normal Extremities: no cyanosis, no edema, pulses normal, no ischemia or petechiae Neurologic: non-focal exam (grossly), pupils equal and round, CN II-XII normal, other (weak (3/5)) Psychiatric: mood appropriate, affect normal CBC and BMP: 02/16/22 04:52 02/16/22 04:52 ABG, PT/INR, D-dimer: ABG ABG pH 7.333 pH Units (7.350-7.450) L 02/08/22 09:20 ABG pCO2 48.2 mm Hg 02/08/22 09:20 ABG pO2 114.7 mm Hg (80.0-90.0) H 02/08/22 09:20 ABG O2 Saturation 97.9 % (95.0-99.0) 02/08/22 09:20 Abnormal lab findings: Abnormal Labs 02/06/22 02/06/22 02/06/22 12:39 12:39 13:59 WBC RBC 5.75 H Hgb Hct MCV 74 L MCH 23 L MCHC 30 L RDW 16.9 H Lymph % (Auto) 6.4 L [place] % (Auto) Lymph # (Auto) 0.5 L Seg Neutrophils % 89.3 H ABG pH ABG pO2 ABG Hemoglobin 12.6 L Oxyhemoglobin Potassium 3.5 L Chloride 109.1 H Carbon Dioxide 20 L Creatinine 0.7 L Glucose 113 H Albumin 02/07/22 02/07/22 02/08/22 04:15 12:00 04:23 WBC RBC 5.10 H Hgb 11.5 L 11.0 L Hct MCV 72 L 74 L MCH 23 L 22 L MCHC 30 L RDW 17.3 H 17.1 H Lymph % (Auto) [place] % (Auto) 9.1 H Lymph # (Auto) Seg Neutrophils % ABG pH ABG pO2 72.6 L ABG Hemoglobin 12.2 L Oxyhemoglobin 94.4 L Potassium Chloride Carbon Dioxide Creatinine Glucose Albumin 02/08/22 02/08/22 02/09/22 04:23 09:20 04:50 WBC RBC Hgb 10.4 L Hct 33.7 L MCV 73 L MCH 22 L MCHC 31 L RDW 17.5 H Lymph % (Auto) [place] % (Auto) Lymph # (Auto) Seg Neutrophils % ABG pH 7.333 L ABG pO2 114.7 H ABG Hemoglobin 11.1 L Oxyhemoglobin Potassium Chloride 109.3 H Carbon Dioxide Creatinine 0.6 L Glucose Albumin 02/09/22 02/10/22 02/11/22 04:50 04:50 04:38 WBC 4.4 L 3.3 L RBC Hgb 10.1 L 10.4 L Hct 32.9 L 33.6 L MCV 73 L 73 L MCH 22 L 23 L MCHC 31 L 31 L RDW 17.2 H 17.0 H Lymph % (Auto) [place] % (Auto) Lymph # (Auto) Seg Neutrophils % ABG pH ABG pO2 ABG Hemoglobin Oxyhemoglobin Potassium Chloride Carbon Dioxide Creatinine Glucose 107 H Albumin 02/11/22 02/12/22 02/13/22 04:38 04:25 04:17 WBC 3.7 L 3.5 L RBC Hgb 10.5 L 10.8 L Hct 34.5 L MCV 73 L 73 L MCH 22 L 22 L MCHC 30 L 30 L RDW 16.9 H 17.5 H Lymph % (Auto) [place] % (Auto) Lymph # (Auto) Seg Neutrophils % ABG pH ABG pO2 ABG Hemoglobin Oxyhemoglobin Potassium Chloride Carbon Dioxide Creatinine 0.7 L Glucose 101 H Albumin 02/16/22 02/16/22 04:52 04:52 WBC RBC Hgb 11.4 L Hct 35.3 L MCV 71 L MCH 23 L MCHC RDW 17.4 H Lymph % (Auto) [place] % (Auto) 7.6 H Lymph # (Auto) Seg Neutrophils % 71.5 H ABG pH ABG pO2 ABG Hemoglobin Oxyhemoglobin Potassium Chloride Carbon Dioxide Creatinine 0.6 L Glucose Albumin 3.5 L Allied health notes reviewed: nursing
[2022-02-17] MEDS: oxyCODONE /ACETAMINOPHEN 5-325MG TAB PO PRN (15:50)
--- NOTE | 2022-02-17 17:37 | XRay Report ---
CHEST 1 VIEW 02/17/2022 5:18 PM INDICATION / CLINICAL INFORMATION: pt. c/o rib pain. COMPARISON: One day prior FINDINGS: SUPPORT DEVICES: Right IJ catheter unchanged. HEART / MEDIASTINUM: No significant abnormality. LUNGS / PLEURA: No significant pulmonary or pleural abnormality. No pneumothorax. ADDITIONAL FINDINGS: No significant additional findings. IMPRESSION: 1. No significant change. Signer Name: Yoan Marcano MD Signed: 02/17/2022 5:33 PM Workstation Name: [id number]
[2022-02-17] MEDS: ENOXAPARIN 40 MG/0.4 ML INJ SUB-Q SCH (21:22)
[2022-02-18 07:40] LABS: Basophils % (Auto) 0.3 % (0.0-1.8); Eosinophils % (Auto) 0.2 % (0.0-4.3); Hematocrit 36.1 % (35.5-45.6); Hemoglobin 11.4 gm/dl (11.8-15.2); Lymphocytes % (Auto) 43.5 % (13.4-35.0); Mean Corpuscular HGB Conc 32 % (32-34); Mean Corpuscular Volume 72 fl (84-94); Monocytes # (Auto) 0.5 K/mm3 (0.0-0.8); Monocytes % (Auto) 7.6 % (0.0-7.3); Platelet Count 203 K/mm3 (140-440); Red Blood Count 5.03 M/mm3 (3.65-5.03); Red Cell Distribution Width 17.3 % (13.2-15.2)
[2022-02-18 08:00] LABS: Blood Urea Nitrogen 12 mg/dL (9-20); Hemolysis Index 5
[2022-02-18 08:01] LABS: BUN/Creatinine Ratio 24
[2022-02-18] MEDS: ACETAMINOPHEN 325 MG TAB PO PRN ×2 (08:46→15:54)
--- NOTE | 2022-02-18 10:19 | XRay Report ---
LEFT RIB SERIES, 4 VIEWS INDICATION / CLINICAL INFORMATION: R/O Rib fracture. Rib pain COMPARISON: Chest radiograph, 02/17/2022 FINDINGS: The left ribs are well visualized. I do not see any suggestion for left rib fracture or other rib abn ormality. Both lungs appear grossly clear. No pneumothorax or pleural effusion. Stable positioning of right IJ central venous line. IMPRESSION: 1. The left ribs appear unremarkable. There is no visible left rib fracture. 2. No acute pulmonary disease. Signer Name: Sandhya Reyes MD Signed: 02/18/2022 10:15 AM Workstation Name: [id number]
[2022-02-18] MEDS: FAMOTIDINE 20 MG TAB PO SCH ×2 (10:49→21:08)
[2022-02-18] MEDS: predniSONE 20 MG TAB PO SCH (10:49)
[2022-02-18] MEDS: PYRIDOSTIGMINE BROMIDE 60 MG TAB PO SCH (10:49)
[2022-02-18] MEDS: SENNOSIDES/DOCUSATE SODIUM 8.6/50 MG TAB PO SCH ×2 (10:49→21:10)
[2022-02-18] MEDS: MYCOPHENOLATE PO SCH ×2 (10:50→21:08)
--- NOTE | 2022-02-18 11:35 | Progress Note ---
Assessment and Plan Assessment and plan: History Interval history: This is 36 year old male with Myasthenia Gravis (currently taking Cellcept, Mycophenolate, and Prednisone), ANTON (uses home CPAP) and obesity who presented to the emergency department on 02/06 with complaints of generalized weakness of the past day with worsening symptoms over the same timeframe via EMS. On hospitalist examination patient reported he was able to walk earlier during the day however at the time of evaluation, patient was unable to walk and unable to lift or feel his lower extremities and acknowledged upper extremity weakness and difficulty speaking. Patient was found to have myasthenia gravis crisis and was admitted to the ICU for risk of worsening symptoms. In the emergency department patient was placed on NIPPV and IVIG was ordered. Patient was admitted to the hospital service with Myasthenia Gravis crisis with consults to CCM and neurology Hospital Course to Date: 02/07: S/p X1 dose of IV IG overnight, patient reported feeling much better and stronger this am, moving all extremities. Plan to wean off Bipap this am. Okay to start a diet if patient pass bedside swallow. D/W CCM plan for CT chest w con tomorrow to r/o thymoma. Neurology consulted. 02/08: S/p emergent intubattion by cipriano yesterday. Now intubated and sedated, RASS -2. Neurology recommendations noted. Resumed home meds. Will wean off sedation this am for possible SAT/SBT. CT chest also noted with no evidence of thymoma. Continue IVIG. Attending received call back from [facility]. Transfer was declined, no available ICU beds at this time. They recommend continuing IVIG and possible plasma exchange. Awaiting on Neurology final recommendations. 02/09: S/p Extubation this am. Desated to 85% on 3L NC, SPO2 improved to 88% on 8L NC. This am CXR noted, worsen opacity of the left side. CCM at the bedside, X1 dose of IV Lasix ordered and place patient on Bipap. Low Threshold for reintubation. Plan of care and the high probability for reintubation was discussed with patient at the bedside. Patient verbalized understanding and agree with current care plan. Continue IVIG, Awaiting on Neurology final haider mmendations. 02/10: Tolerated Bipap, now on 2L NC this am, SPO2 at 100%. No s/s of any acute respiratory distress noted. This am CXR also noted with significant improvement. Continue IVIGm and Bipap at night. Incentive Spirometer also ordered. advance diet as tolerated. PT/OT/Speech consulted. 02/11: Completed x5days of IVIG overnight. Stable on RA, still complaining of generalized weakness, other stable. Diet advanced to solid this am, patient is tolerating it. Continue IS and Bipap at night. Encourage mobility as tolerated, PT/OT/Speech consult pending. 02/12: CPAP prn, currently on RA. Improved strength to BLE and BUE per patient. 02/13: Increased weakness reported on encounter. increased steroid dose to prednisone 40 mg po daily. Continue pyridostigmine and cellcept. Possible d/c tomorrow. 02/14: Weakness improved however still continues to have difficulty with strength. Still has right eye lid droop. Patient increased to prednisone 60 mg po daily. He has had 4 myasthenia gravis crises in the past and was initiated on high dose steroids with extermination supervisor taper by her OP neurologist. Pt recommended home with home health care PT. Ambulation is challenging as patient requires a rolling walker. 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 Patient is not a resident of [place]. States his home state is [place]. He has a sister in [place] who's address he uses for mailing purposes. Will work with to coordinate placement. 02/15: worsened strength. Admits to dysphagia and shortness of breath today. Given worsening symptomology transferring back to ICU for close monitoring. Plasma exchange ordered, first tx tomorrow, coordinated with Dr Katya Manley. [facility]. Steroid dose increased to Prednisone 80 mg po daily in interim. Will attempt to call neurologist tomorrow AM. 02/16: Plan for plasma exchange today. Labs reviewed, cbc/bmp/fibrinogen all unremarkable. Trialysis catheter placed, pt tolerated procedure well. Taryn Manley will be here today do 4L exchange. A total of 5 exchanges will be completed over 9 days. A total of 20 L 5% albumin will be needed, pharmacy was notified yesterday of this. Continue prednisone 80 mg po daily dose. 02/17: No overnight events. No acute complaints. Tolerated PLEX well. Continue steroids and will follow for symptom improvement. 02/18: Plex tx today. XR ordered due to severe rib pain, no rib fx ID. Will continue to follow for sx improvement. Assessment and Plan Neuro: Myasthenia Gravis Crisis, h/o Myasthenia Gravis -Patient is from [place], here for work (truck sales representative)->sees neurology in [place] (Per patient his neurologist in [place] is Dr. Billie Delgado) -Neurology consulted, appreciate recommendations -s/p IVIG x 5 days -Restarted home prednisone, cellcept, mestinon -Reorientation as needed -Maintain sleep-wake cycle -As needed analgesia -Transfer to [facility] was declined, no available ICU beds at this time. They recommend continuing IVIG and possible plasma exchange -CT chest showed no evidence of thymoma - plasma exchange initiated on 02/16. 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 -CCM consulted, appreciate recommendations -Intubated on 02/07 in the ED with 7.5 OETT at 20 at the teeth for difficulty b reathing and noted to be drooling and extubated 02/09 -BiPAP q hs and prn -CT chest w con showed no evidence of thymoma -Pulmonary hygiene bundle -SPO2 monitoring GI: Hepatic Hemangiomas -noted on CT chest -24 hours -1350 mL -ST recommends mechanical soft with chopped meat and gravy applied on top of meat with thin liquid -PPI -BR: Senokot S -Outpatient follow up for US and further workup : NAD -Monitor intake and output -Renally dose medications -Trend BMP prn ID: NAD -f/u blood culture -Monitor WBC and temperature curve Endo: NAD -Avoid hypoglycemia Heme: Leukopenia -Trend CBC -Transfuse hemoglobin less than 7 -SCDs to BLE while in bed The high probability of a clinically significant, sudden or life threatening deterioration of the [neuro/resp] system(s) required my full and direct attention, intervention and personal management. The aggregate critical care time was [60] minutes. This time is in addition to time spent performing reported procedures but includes the following: [x] Data Review and interpretation [x] Patient assessment and monitoring of vital signs [x] Documentation [x] Medication orders and management Disposition Plan: IMCU Total Time Spent with Patient (Minutes): 60 History Interval history: No complaints other than rib pain yesterday. Hospitalist Physical - Physical exam Narrative exam: General appearance: Present: no acute distress, well-nourished, obese - EENT Eyes: Present: PERRL (drooping eyelid right side) ENT: dentition normal, hearing decreased - Neck Neck: Present: normal ROM - Respiratory Respiratory effort: normal Respiratory: bilateral: diminished - Cardiovascular Rhythm: regular Heart Sounds: Present: S1 & S2. Absent: systolic murmur, diastolic murmur - Extremities Extremities: no ischemia, pulses intact, pulses symmetrical, No edema, normal temperature, normal color Peripheral Pulses: within normal limits - Abdominal General gastrointestinal: soft, non-tender, non-distended, normal bowel sounds - Integumentary Integumentary: Present: warm, dry - Psychiatric Psychiatric: appropriate mood/affect, cooperative - Neurologic Neurologic: no focal deficits, moves all extremities - Allied Health Allied health notes reviewed: nursing, RT, social work - Constitutional Vitals: Temp Pulse Resp BP Pulse Ox 98.0 F 60 12 117/70 100 02/18/22 04:00 02/18/22 07:00 02/18/22 07:00 02/18/22 06:00 02/18/22 07:00 General appearance: Present: no acute distress, well-nourished, obese Results - Labs CBC & Chem 7: 02/18/22 07:18 02/18/22 07:18 Labs: Laboratory Last Values WBC 6.9 K/mm3 (4.5-11.0) 02/18/22 07:18 RBC 5.03 M/mm3 (3.65-5.03) 02/18/22 07:18 Hgb 11.4 gm/dl (11.8-15.2) L 02/18/22 07:18 Hct 36.1 % (35.5-45.6) 02/18/22 07:18 MCV 72 fl (84-94) L 02/18/22 07:18 MCH 23 pg (28-32) L 02/18/22 07:18 MCHC 32 % (32-34) 02/18/22 07:18 RDW 17.3 % (13.2-15.2) H 02/18/22 07:18 Plt Count 203 K/mm3 (140-440) 02/18/22 07:18 Lymph % (Auto) 43.5 % (13.4-35.0) H 02/18/22 07:18 [place] % (Auto) 7.6 % (0.0-7.3) H 02/18/22 07:18 Eos % (Auto) 0.2 % (0.0-4.3) 02/18/22 07:18 Baso % (Auto) 0.3 % (0.0-1.8) 02/18/22 07:18 Lymph # (Auto) 3.0 K/mm3 (1.2-5.4) 02/18/22 07:18 [place] # (Auto) 0.5 K/mm3 (0.0-0.8) 02/18/22 07:18 Eos # (Auto) 0.0 K/mm3 (0.0-0.4) 02/18/22 07:18 Baso # (Auto) 0.0 K/mm3 (0.0-0.1) 02/18/22 07:18 Seg Neutrophils % 48.4 % (40.0-70.0) 02/18/22 07:18 Seg Neutrophils # 3.4 K/mm3 (1.8-7.7) 02/18/22 07:18 Fibrinogen 144 mg/dl (211-480) L* 02/18/22 07:18 ABG pH 7.333 pH Units (7.350-7.450) L 02/08/22 09:20 ABG pCO2 48.2 mm Hg 02/08/22 09:20 ABG pO2 114.7 mm Hg (80.0-90.0) H 02/08/22 09:20 ABG HCO3 25.0 mmol/L (20.0-26.0) 02/08/22 09:20 ABG O2 Saturation 97.9 % (95.0-99.0) 02/08/22 09:20 ABG O2 Content 15.1 (0.0-44) 02/08/22 09:20 ABG Base Excess -1.1 mmol/L (-2.0-3.0) 02/08/22 09:20 ABG Hemoglobin 11.1 gm/dl (14.0-18.0) L 02/08/22 09:20 ABG Carboxyhemoglobin 1.4 % (0.0-5.0) 02/08/22 09:20 ABG Methemoglobin 0.5 % (0.0-1.5) 02/08/22 09:20 Oxyhemoglobin 96.1 % (95.0-99.0) 02/08/22 09:20 FiO2 35 % 02/08/22 09:20 Sodium 140 mmol/L (137-145) 02/18/22 07:18 Potassium 3.8 mmol/L (3.6-5.0) 02/18/22 07:18 Chloride 103.3 mmol/L (98-107) 02/18/22 07:18 Carbon Dioxide 28 mmol/L (22-30) 02/18/22 07:18 Anion Gap 13 mmol/L 02/18/22 07:18 BUN 12 mg/dL (9-20) 02/18/22 07:18 Creatinine 0.5 mg/dL (0.8-1.3) L 02/18/22 07:18 Estimated GFR > 60 ml/min 02/18/22 07:18 BUN/Creatinine Ratio 24 % 02/18/22 07:18 Glucose 77 mg/dL (75-100) 02/18/22 07:18 Calcium 9.0 mg/dL (8.4-10.2) 02/18/22 07:18 Total Bilirubin 0.40 mg/dL (0.1-1.2) 02/07/22 04:15 AST 9 units/L (5-40) 02/07/22 04:15 ALT 11 units/L (7-56) 02/07/22 04:15 Alkaline Phosphatase 75 units/L (35-129) 02/07/22 04:15 Total Protein 8.0 g/dL (6.3-8.2) 02/16/22 04:52 Albumin 3.5 g/dL (3.9-5) L 02/16/22 04:52 Albumin/Globulin Ratio 1.3 % 02/07/22 04:15 [place]/IV: Voiding Method Urinal Active Medications - Current Medications Current Medications: Generic Name Dose Route Start Last Admin Trade Name Freq PRN Reason Stop Dose Admin Acetaminophen 650 mg 02/06/22 15:00 02/18/22 08:46 Acetaminophen 325 Mg Tab PO 650 mg Q6H PRN Administration Pain MILD(1-3)/Fever >100.5/WEINBERG Albumin Human 200 gm 02/16/22 13:00 02/16/22 12:00 Albumin Human 5% (25 Gm/500 Ml) Inj IV 02/24/22 13:01 200 gm Q48H NESTOR Administration Albuterol 2.5 mg 02/06/22 15:00 02/15/22 21:54 Albuterol 2.5 Mg/3 Ml Nebu IH 2.5 mg Q3HRT PRN Administration Shortness Of Breath Diphenhydramine HCl 25 mg 02/15/22 14:06 02/16/22 11:49 Diphenhydramine 50 Mg/Ml Vial IV 25 mg Q6H PRN Administration Itching Enoxaparin Sodium 40 mg 02/06/22 22:00 02/17/22 21:22 Enoxaparin 40 Mg/0.4 Ml Inj SUB-Q 40 mg QDAY@2200 NESTOR Administration Protocol Famotidine 20 mg 02/12/22 10:00 02/18/22 10:49 Famotidine 20 Mg Tab PO 20 mg BID NESTOR Administration Hydrophilic Ointment 1 applic 02/07/22 10:55 Lip Therapy Vaseline TP Q2HR PRN Dry Lips Multi-Ingred Cream/Lotion/Oil/Oint 1 applic 02/07/22 10:55 Mineral Oil/Petrolatum, White Ophth Oint 3.5 Gm OU Q4HR PRN Dry Eye(s) Mycophenolate Mofetil 1,000 mg 02/12/22 10:00 02/18/22 10:50 Mycophenolate 1000 Mg/5 Ml Oral Liqd PO 1,000 mg BID NESTOR Administration Ondansetron HCl 4 mg 02/08/22 17:00 02/10/22 18:25 Ondansetron 4 Mg/2 Ml Inj IV 4 mg Q8H PRN Administration Nausea And Vomiting Oxycodone/Acetaminophen 1 tab 02/06/22 15:00 02/17/22 15:50 Oxycodone /Acetaminophen 5-325mg Tab PO 1 tab Q16H PRN Administration Pain, Moderate (4-6) Prednisone 80 mg 02/15/22 12:00 02/18/22 10:49 Prednisone 20 Mg Tab PO 80 mg QDAY NESTOR Administration Pyridostigmine [place] 180 mg 02/08/22 10:00 02/18/22 10:49 Pyridostigmine [place] 60 Mg Tab PO 180 mg DAILY NESTOR Administration Senna/Docusate Sodium 1 tab 02/12/22 10:00 02/18/22 10:49 Sennosides/Docusate Sodium 8.6/50 Mg Tab PO 1 tab BID NESTOR Administration Sodium Chloride 10 ml 02/06/22 22:00 02/18/22 10:49 Sodium Chloride 0.9% 10 Ml Flush Syringe IV 10 ml BID NESTOR Administration Sodium Chloride 10 ml 02/06/22 13:59 Sodium Chloride 0.9% 10 Ml Flush Syringe IV PRN PRN LINE FLUSH Nutrition/Malnutrition Assess - Dietary Evaluation Nutrition/Malnutrition Findings: Nutrition Notes Start: 02/07/22 13:09 Freq: Status: Active Protocol: Document 02/12/22 15:28 LATOYA (Rec: 02/12/22 15:44 LATOYA [email or web address]) Nutrition Notes Initial or Follow up Reassessment Other Pertinent Diagnosis Myasthenia gravis crisis Current Diet Mec soft with chopped meats Labs/Tests Reviewed Pertinent Medications Reviewed Height 5 ft 10 in Weight 102.194 kg [place] Body Weight (kg) 75.45 BMI 32.3 Weight Status Obese Subjective/Other Information Pt extubated on 02/09. Per SALES OFFICE MANAGER evaluation on 02/11, pt tolerated [facility] soft diet with chopped meats/gravy on meats. Observed consumption of 100% of entree for lunch today. He says the green beans and fruit cup contains too much magnesium for him; he avoids foods containing >10mg of magnesium. Burn Absent Trauma Absent #1 Nutrition Diagnosis Inadequate oral intake As Evidenced by Signs and Symptoms pt tolerating PO diet Diagnosis Progress(for reassessment Improved documentation) Is patient on ventilator? No Is Patient Ambulatory and/or Out of Bed No REE-([facility]-confined to bed) 2352.060 Kcal/Kg value to use for calculation 18 Approximate Energy Requirements Using 1839 kcal/Kg Calculation Used for Recommendations Kcal/kg Additional Notes Pro needs 0.8-1g/kg adjBW: 71- 89g/day Fluid needs 1ml/kcal Nutrition Intervention Change Diet Order: Continue current diet order Goal #1 PO intake to meet at least 75% energy and pro needs Follow-Up By: 02/20/22 Additional Comments F/U: intakes, wt
[2022-02-18] MEDS: CALCIUM GLUCONATE 1,000 MG/NS 100 ML PREMIX IV SCH (14:05)
[2022-02-18] MEDS: ALBUMIN HUMAN 5% (25 GM/500 ML) INJ IV SCH (14:05)
--- NOTE | 2022-02-18 15:07 | Progress Note ---
Assessment and Plan Myasthenic crisis Obesity Possible ANTON / OHS Blurry vision Mild hypokalemia Mild metabolic acidosis - repeat FVC / NIF manuver ordered - complete Plasmapharesis X 5 treatments - neurology re-consultation when available - transfer request refused earlier in admission - continue care as below otherwise; - continue BIPAP scheduled qhs with prn daytime use - continue to avoid aminoglycosides, flouroquinolones etc - continue accuchecks with glycemic control per SSI (While critically ill target blood glucose of 140-180 mg/dL; avoid hypoglycemia) - continue to wean supplemental oxygen for target O2 sat's > 90% acutely - aspiration precautions - prn bronchodilators with pulmonary hygiene per RT - avoid nephrotoxins, renally dose all medications - continue to avoid benzodiazepine's, reduce the possibility of delirium - AB's per ID rec's - prn analgesia per pain score - Maintenance of sleep-wake cycle, avoid delirium - G.I. & VTE prophylaxis - PT/OT/ROM exercises - mobility protocols for pressure ulcer prophylaxis - Monitor hemodynamics closely - continue other care per attending / other consultants - discharge planning ongoing concurrently .... Re-evaluate in am & prn CONDITION: CRITICAL PROGNOSIS: GUARDED CODE STATUS: FULL CODE The high probability of a clinically significant, sudden or life-threatening deterioration of the [respiratory, cardiovascular & neurologic] system(s) required my full and direct attention, intervention and personal management. The aggregate critical care time was [35] minutes without overlap. Time includes spent on; [x] Data Review and interpretation [x] Patient assessment and monitoring of vital signs [x] Documentation [x] Medication orders and management Subjective Date of service: 02/18/22 Principal diagnosis: Myasthenic crisis; Obesity; Possible ANTON/OHS; Blurry vision; Hypokalemia Interval history: Patient is seen today for: Myasthenic crisis; Obesity; Possible ANTON / OHS; Blurry vision; Mild hypokalemia; Mild metabolic acidosis Seen and examined at bedside; 24hour events reviewed; nursing and respiratory care staff consulted; no adverse overnight events reported to me; resting in bed ; complained of some chest discomfort in left lower rib-cage area earlier; denies N/V/F/C; no coughing spells; Plasmapharesis ongoing and tolerating well so far Objective Vital Signs - 12hr 02/18/22 02/18/22 02/18/22 03:30 04:00 04:30 Temperature 98.0 F Pulse Rate 45 L 41 L 44 L Pulse Rate [ 55 L From Monitor] Respiratory 13 12 15 Rate Blood Pressure 117/41 116/41 104/42 O2 Sat by Pulse 100 100 100 Oximetry 02/18/22 02/18/22 02/18/22 05:00 06:00 07:00 Temperature Pulse Rate 45 L 56 L 60 Pulse Rate [ From Monitor] Respiratory 13 12 12 Rate Blood Pressure 113/42 117/70 O2 Sat by Pulse 100 100 100 Oximetry 02/18/22 08:19 Temperature Pulse Rate Pulse Rate [ From Monitor] Respiratory Rate Blood Pressure O2 Sat by Pulse 98 Oximetry Constitutional: no acute distress, alert, other (young obese male without i ncreased respiratory effort at rest) Eyes: non-icteric ENT: oropharynx moist Neck: supple, no lymphadenopathy, no JVD, other (large circumference) Effort: normal Ascultation: Bilateral: clear, diminished breath sounds Percussion: Bilateral: not dull Cardiovascular: regular rate and rhythm Gastrointestinal: normoactive bowel sounds, soft, non-tender, non-distended (protuberant) Integumentary: normal Extremities: no cyanosis, no edema, pulses normal, no ischemia or petechiae Neurologic: non-focal exam (grossly), pupils equal and round, CN II-XII normal, other (weak (3-4/5)) Psychiatric: mood appropriate, affect normal CBC and BMP: 02/18/22 07:18 02/18/22 07:18 ABG, PT/INR, D-dimer: ABG ABG pH 7.333 pH Units (7.350-7.450) L 02/08/22 09:20 ABG pCO2 48.2 mm Hg 02/08/22 09:20 ABG pO2 114.7 mm Hg (80.0-90.0) H 02/08/22 09:20 ABG O2 Saturation 97.9 % (95.0-99.0) 02/08/22 09:20 Abnormal lab findings: Abnormal Labs 02/06/22 02/06/22 02/06/22 12:39 12:39 13:59 WBC RBC 5.75 H Hgb Hct MCV 74 L MCH 23 L MCHC 30 L RDW 16.9 H Lymph % (Auto) 6.4 L [place] % (Auto) Lymph # (Auto) 0.5 L Seg Neutrophils % 89.3 H Fibrinogen ABG pH ABG pO2 ABG Hemoglobin 12.6 L Oxyhemoglobin Potassium 3.5 L Chloride 109.1 H Carbon Dioxide 20 L Creatinine 0.7 L Glucose 113 H Albumin 02/07/22 02/07/22 02/08/22 04:15 12:00 04:23 WBC RBC 5.10 H Hgb 11.5 L 11.0 L Hct MCV 72 L 74 L MCH 23 L 22 L MCHC 30 L RDW 17.3 H 17.1 H Lymph % (Auto) [place] % (Auto) 9.1 H Lymph # (Auto) Seg Neutrophils % Fibrinogen ABG pH ABG pO2 72.6 L ABG Hemoglobin 12.2 L Oxyhemoglobin 94.4 L Potassium Chloride Carbon Dioxide Creatinine Glucose Albumin 02/08/22 02/08/22 02/09/22 04:23 09:20 04:50 WBC RBC Hgb 10.4 L Hct 33.7 L MCV 73 L MCH 22 L MCHC 31 L RDW 17.5 H Lymph % (Auto) [place] % (Auto) Lymph # (Auto) Seg Neutrophils % Fibrinogen ABG pH 7.333 L ABG pO2 114.7 H ABG Hemoglobin 11.1 L Oxyhemoglobin Potassium Chloride 109.3 H Carbon Dioxide Creatinine 0.6 L Glucose Albumin 02/09/22 02/10/22 02/11/22 04:50 04:50 04:38 WBC 4.4 L 3.3 L RBC Hgb 10.1 L 10.4 L Hct 32.9 L 33.6 L MCV 73 L 73 L MCH 22 L 23 L MCHC 31 L 31 L RDW 17.2 H 17.0 H Lymph % (Auto) [place] % (Auto) Lymph # (Auto) Seg Neutrophils % Fibrinogen ABG pH ABG pO2 ABG Hemoglobin Oxyhemoglobin Potassium Chloride Carbon Dioxide Creatinine Glucose 107 H Albumin 02/11/22 02/12/22 02/13/22 04:38 04:25 04:17 WBC 3.7 L 3.5 L RBC Hgb 10.5 L 10.8 L Hct 34.5 L MCV 73 L 73 L MCH 22 L 22 L MCHC 30 L 30 L RDW 16.9 H 17.5 H Lymph % (Auto) [place] % (Auto) Lymph # (Auto) Seg Neutrophils % Fibrinogen ABG pH ABG pO2 ABG Hemoglobin Oxyhemoglobin Potassium Chloride Carbon Dioxide Creatinine 0.7 L Glucose 101 H Albumin 02/16/22 02/16/22 02/18/22 04:52 04:52 07:18 WBC RBC Hgb 11.4 L 11.4 L Hct 35.3 L MCV 71 L 72 L MCH 23 L 23 L MCHC RDW 17.4 H 17.3 H Lymph % (Auto) 43.5 H [place] % (Auto) 7.6 H 7.6 H Lymph # (Auto) Seg Neutrophils % 71.5 H Fibrinogen ABG pH ABG pO2 ABG Hemoglobin Oxyhemoglobin Potassium Chloride Carbon Dioxide Creatinine 0.6 L Glucose Albumin 3.5 L 02/18/22 02/18/22 07:18 07:18 WBC RBC Hgb Hct MCV MCH MCHC RDW Lymph % (Auto) [place] % (Auto) Lymph # (Auto) Seg Neutrophils % Fibrinogen 144 L* ABG pH ABG pO2 ABG Hemoglobin Oxyhemoglobin Potassium Chloride Carbon Dioxide Creatinine 0.5 L Glucose Albumin Chest x-ray: image reviewed (no rib fractures; no acute process) Allied health notes reviewed: nursing
[2022-02-18] MEDS: ENOXAPARIN 40 MG/0.4 ML INJ SUB-Q SCH (21:07)
[2022-02-19] MEDS: SENNOSIDES/DOCUSATE SODIUM 8.6/50 MG TAB PO SCH ×2 (11:02→22:00)
[2022-02-19] MEDS: PYRIDOSTIGMINE BROMIDE 60 MG TAB PO SCH (11:02)
[2022-02-19] MEDS: predniSONE 20 MG TAB PO SCH (11:02)
[2022-02-19] MEDS: FAMOTIDINE 20 MG TAB PO SCH ×2 (11:02→22:00)
[2022-02-19] MEDS: MYCOPHENOLATE PO SCH ×2 (11:03→22:00)
--- NOTE | 2022-02-19 12:42 | Progress Note ---
<MARNI RICHEY - Last Filed: 02/19/22 16:29> Assessment and Plan Assessment and plan: This is a 36-year-old male with known past medical history of obesity and myasthenia gravis admitted for myasthenia gravis crisis. Hospital Course to Date: 02/07: S/p X1 dose of IV IG overnight, patient reported feeling much better and stronger this am, moving all extremities. Plan to wean off Bipap this am. Okay to start a diet if patient pass bedside swallow. D/W CCM plan for CT chest w con tomorrow to r/o thymoma. Neurology consulted. 02/08: S/p emergent intubattion by cipriano yesterday. Now intubated and sedated, RASS -2. Neurology recommendations noted. Resumed home meds. Will wean off sedation this am for possible SAT/SBT. CT chest also noted with no evidence of thymoma. Continue IVIG. Attending received call back from [facility]. Transfer was declined, no available ICU beds at this time. They recommend continuing IVIG and possible plasma exchange. Awaiting on Neurology final recommendations. 02/09: S/p Extubation this am. Desated to 85% on 3L NC, SPO2 improved to 88% on 8L NC. This am CXR noted, worsen opacity of the left side. CCM at the bedside, X1 dose of IV Lasix ordered and place patient on Bipap. Low Threshold for reintubation. Plan of care and the high probability for reintubation was discussed with patient at the bedside. Patient verbalized understanding and agree with current care plan. Continue IVIG, Awaiting on Neurology final recommendations. 02/10: Tolerated Bipap, now on 2L NC this am, SPO2 at 100%. No s/s of any acute respiratory distress noted. This am CXR also noted with significant improvement. Continue IVIGm and Bipap at night. Incentive Spirometer also ordered. advance diet as tolerated. PT/OT/Speech consulted. 02/11: Completed x5days of IVIG overnight. Stable on RA, still complaining of generalized weakness, other stable. Diet advanced to solid this am, patient is tolerating it. Continue IS and Bipap at night. Encourage mobility as tolerated, PT/OT/Speech consult pending. 02/12: CPAP prn, currently on RA. Improved strength to BLE and BUE per patient. 02/13: Increased weakness reported on encounter. increased steroid dose to prednisone 40 mg po daily. Continue pyridostigmine and cellcept. Possible d/c tomorrow. 02/14: Weakness improved however still continues to have difficulty with strength. Still has right eye lid droop. Patient increased to prednisone 60 mg po daily. He has had 4 myasthenia gravis crises in the past and was initiated on high dose steroids with technician terminal and repeater taper by her OP neurologist. Pt recommended home with home health care PT. Ambulation is challenging as patient requires a rolling walker. 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 Patient is not a resident of [place]. States his home state is [place]. He has a sister in [place] who's address he uses for mailing purposes. Will work with CM to coordinate placement. 02/15: worsened strength. Admits to dysphagia and shortness of breath today. Given worsening symptomology transferring back to ICU for close monitoring. Plasma exchange ordered, first tx tomorrow, coordinated with Dr Katya Manley. Will place vascat today/tomorrow AM for exchanges. Steroid dose increased to Prednisone 80 mg po daily in interim. Will attempt to call neurologist tomorrow AM. 02/16: Plan for plasma exchange today. Labs reviewed, cbc/bmp/fibrinogen all unremarkable. Trialysis catheter placed, pt tolerated procedure well. Taryn Manley will be here today do 4L exchange. A total of 5 exchanges will be completed over 9 days. A total of 20 L 5% albumin will be needed, pharmacy was notified yesterday of this. Continue prednisone 80 mg po daily dose. 02/17: No overnight events. No acute complaints. Tolerated PLEX well. Continue steroids and will follow for symptom improvement. 02/18: Plex tx today. XR ordered due to severe rib pain, no rib fx ID. Will continue to follow for sx improvement. 02/19: Doing much better this am. OOB and sitting up in the chair this am, stable on RA. Still complaining of generalized but reported feeling better. Continue plasma exchange and PO prednisone, cellcept, and Mycophenolate. 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 He was passing through [place] when symptoms started - S/p emergent intubation by anethesia - CT chest w con showed no evidence of thymoma - Neurology consulted, appreciated recommendations - Resumed home meds: Cellcept, Mestinon, and PO Prednisone - Completed X 5 days of IVIG - Plasma exchange initiated on 02/16, Received X2 treament. For a total of 5 exchanges to be completed over 9 days. - CCM also on consult, appreciated recommendations - Patient reported that his neurologist in [place] is Dr. Billie Delgado - Transfer to [facility] was declined, no available ICU beds at this time. They recommend continuing IVIG and possible plasma exchange #Acute Hypoxemic Respiratory Failure #Probable ANTON- On CPAP at home #Former Smoker - most likely related to MG crisis - S/p emergent intubation by anesthesia on 02/07 for airway protection - 02/09 s/p extubation - Stable on RA this am - CCM consulted, appreciate recommendations - Completed X5 days of IVIG - Continue plasma exchange and IS ordered - Continue Bipap at night - Aspiration precaution HOB above 30 - PRN O2 supplementation as needed - Continue SPO2 monitoring for SPO2 goal above 92% #Hepatic Hemangiomas - noted fro CT chest w/o con - Stable, LFTs within normal range - Outpatient follow up for US and further workups #Obesity - Balanced diet, increase physical activity discharge, outpatient pulmonary foll ow-up for sleep study, weight reduction. #GI/DVT Prophylaxis - PPI- Pepcid - Lovenox SubQ - SCD to bilateral lower extremities while in bed #Advance Care Planning - Disease education data, care plan, diagnoses, and prognosis were discussed with patient at the bedside. Patient is a Full code. Patient acknowledged understanding and agreement with current care plan. - Patient reported in case of an emergency and he is unable to make his own decision, his NOK is his aunt who resides in [place], [place]. Heike Araujo, phone# The high probability of a clinically significant, sudden or life threatening deterioration of the [multiple] system(s) required my full and direct attention, intervention and personal management. The aggregate critical care time was [60] minutes. This time is in addition to time spent performing reported procedures but includes the following: [x] Data Review and interpretation [x] Patient assessment and monitoring of vital signs [x] Documentation [x] Medication orders and management Disposition Plan: IMCU Total Time Spent with Patient (Minutes): 60 History Interval history: Patient seen and examined at the bedside. Patient is up sitting in the chair this am. Stable on RA, still complaint of generalized weakness but stable. ADAL overnight Hospitalist Physical - Constitutional Vitals: Temp Pulse Resp BP Pulse Ox 98.4 F 57 L 16 134/57 100 02/19/22 03:00 02/19/22 07:00 02/19/22 07:00 02/19/22 07:00 02/19/22 07:00 General appearance: Present: no acute distress, well-nourished, obese - EENT Eyes: Present: PERRL, EOM intact ENT: hearing intact - Neck Neck: Present: normal ROM - Respiratory Respiratory effort: normal Respiratory: bilateral: diminished - Cardiovascular Rhythm: regular Heart Sounds: Present: S1 & S2 - Extremities Extremities: no ischemia, pulses intact, pulses symmetrical Extremity abnormal: edema - Peripheral Assessment Generalized Edema Type: Non-pitting Edema Degree: 2+ Capillary Refill: < 3 seconds Skin Temperature: Warm Peripheral Pulses: within normal limits - Abdominal General gastrointestinal: soft, non-distended, normal bowel sounds - Integumentary Integumentary: Present: clear, warm, dry - Psychiatric Psychiatric: appropriate mood/affect, cooperative - Neurologic Neurologic: CNII-XII intact, moves all extremities - Allied Health Allied health notes reviewed: nursing, case management Results - Labs CBC & Chem 7: 02/18/22 07:18 02/18/22 07:18 Labs: Laboratory Last Values WBC 6.9 K/mm3 (4.5-11.0) 02/18/22 07:18 RBC 5.03 M/mm3 (3.65-5.03) 02/18/22 07:18 Hgb 11.4 gm/dl (11.8-15.2) L 02/18/22 07:18 Hct 36.1 % (35.5-45.6) 02/18/22 07:18 MCV 72 fl (84-94) L 02/18/22 07:18 MCH 23 pg (28-32) L 02/18/22 07:18 MCHC 32 % (32-34) 02/18/22 07:18 RDW 17.3 % (13.2-15.2) H 02/18/22 07:18 Plt Count 203 K/mm3 (140-440) 02/18/22 07:18 Lymph % (Auto) 43.5 % (13.4-35.0) H 02/18/22 07:18 [place] % (Auto) 7.6 % (0.0-7.3) H 02/18/22 07:18 Eos % (Auto) 0.2 % (0.0-4.3) 02/18/22 07:18 Baso % (Auto) 0.3 % (0.0-1.8) 02/18/22 07:18 Lymph # (Auto) 3.0 K/mm3 (1.2-5.4) 02/18/22 07:18 Anson # (Auto) 0.5 K/mm3 (0.0-0.8) 02/18/22 07:18 Eos # (Auto) 0.0 K/mm3 (0.0-0.4) 02/18/22 07:18 Baso # (Auto) 0.0 K/mm3 (0.0-0.1) 02/18/22 07:18 Seg Neutrophils % 48.4 % (40.0-70.0) 02/18/22 07:18 Seg Neutrophils # 3.4 K/mm3 (1.8-7.7) 02/18/22 07:18 Fibrinogen 144 mg/dl (211-480) L* 02/18/22 07:18 ABG pH 7.333 pH Units (7.350-7.450) L 02/08/22 09:20 ABG pCO2 48.2 mm Hg 02/08/22 09:20 ABG pO2 114.7 mm Hg (80.0-90.0) H 02/08/22 09:20 ABG HCO3 25.0 mmol/L (20.0-26.0) 02/08/22 09:20 ABG O2 Saturation 97.9 % (95.0-99.0) 02/08/22 09:20 ABG O2 Content 15.1 (0.0-44) 02/08/22 09:20 ABG Base Excess -1.1 mmol/L (-2.0-3.0) 02/08/22 09:20 ABG Hemoglobin 11.1 gm/dl (14.0-18.0) L 02/08/22 09:20 ABG Carboxyhemoglobin 1.4 % (0.0-5.0) 02/08/22 09:20 ABG Methemoglobin 0.5 % (0.0-1.5) 02/08/22 09:20 Oxyhemoglobin 96.1 % (95.0-99.0) 02/08/22 09:20 FiO2 35 % 02/08/22 09:20 Sodium 140 mmol/L (137-145) 02/18/22 07:18 Potassium 3.8 mmol/L (3.6-5.0) 02/18/22 07:18 Chloride 103.3 mmol/L (98-107) 02/18/22 07:18 Carbon Dioxide 28 mmol/L (22-30) 02/18/22 07:18 Anion Gap 13 mmol/L 02/18/22 07:18 BUN 12 mg/dL (9-20) 02/18/22 07:18 Creatinine 0.5 mg/dL (0.8-1.3) L 02/18/22 07:18 Estimated GFR > 60 ml/min 02/18/22 07:18 BUN/Creatinine Ratio 24 % 02/18/22 07:18 Glucose 77 mg/dL (75-100) 02/18/22 07:18 Calcium 9.0 mg/dL (8.4-10.2) 02/18/22 07:18 Total Bilirubin 0.40 mg/dL (0.1-1.2) 02/07/22 04:15 AST 9 units/L (5-40) 02/07/22 04:15 ALT 11 units/L (7-56) 02/07/22 04:15 Alkaline Phosphatase 75 units/L (35-129) 02/07/22 04:15 Total Protein 8.0 g/dL (6.3-8.2) 02/16/22 04:52 Albumin 3.5 g/dL (3.9-5) L 02/16/22 04:52 Albumin/Globulin Ratio 1.3 % 02/07/22 04:15 Roberson/IV: Voiding Method Urinal Active Medications - Current Medications Current Medications: Generic Name Dose Route Start Last Admin Trade Name Freq PRN Reason Stop Dose Admin Acetaminophen 650 mg 02/06/22 15:00 02/18/22 15:54 Acetaminophen 325 Mg Tab PO 650 mg Q6H PRN Administration Pain MILD(1-3)/Fever >100.5/WEINBERG Albumin Human 200 gm 02/16/22 13:00 02/18/22 14:05 Albumin Human 5% (25 Gm/500 Ml) Inj IV 02/24/22 13:01 200 gm Q48H NESTOR Administration Albuterol 2.5 mg 02/06/22 15:00 02/15/22 21:54 Albuterol 2.5 Mg/3 Ml Nebu IH 2.5 mg Q3HRT PRN Administration Shortness Of Breath Diphenhydramine HCl 25 mg 02/15/22 14:06 02/16/22 11:49 Diphenhydramine 50 Mg/Ml Vial IV 25 mg Q6H PRN Administration Itching Enoxaparin Sodium 40 mg 02/06/22 22:00 02/18/22 21:07 Enoxaparin 40 Mg/0.4 Ml Inj SUB-Q 40 mg QDAY@2200 NESTOR Administration Protocol Famotidine 20 mg 02/12/22 10:00 02/19/22 11:02 Famotidine 20 Mg Tab PO 20 mg BID NESTOR Administration Hydrophilic Ointment 1 applic 02/07/22 10:55 Lip Therapy Vaseline TP Q2HR PRN Dry Lips Multi-Ingred Cream/Lotion/Oil/Oint 1 applic 02/07/22 10:55 Mineral Oil/Petrolatum, White Ophth Oint 3.5 Gm OU Q4HR PRN Dry Eye(s) Mycophenolate Mofetil 1,000 mg 02/12/22 10:00 02/19/22 11:03 Mycophenolate 1000 Mg/5 Ml Oral Liqd PO 1,000 mg BID NESTOR Administration Ondansetron HCl 4 mg 02/08/22 17:00 02/10/22 18:25 Ondansetron 4 Mg/2 Ml Inj IV 4 mg Q8H PRN Administration Nausea And Vomiting Oxycodone/Acetaminophen 1 tab 02/06/22 15:00 02/17/22 15:50 Oxycodone /Acetaminophen 5-325mg Tab PO 1 tab Q16H PRN Administration Pain, Moderate (4-6) Prednisone 80 mg 02/15/22 12:00 02/19/22 11:02 Prednisone 20 Mg Tab PO 80 mg QDAY NESTOR Administration Pyridostigmine [place] 180 mg 02/08/22 10:00 02/19/22 11:02 Pyridostigmine [place] 60 Mg Tab PO 180 mg DAILY NESTOR Administration Senna/Docusate Sodium 1 tab 02/12/22 10:00 02/19/22 11:02 Sennosides/Docusate Sodium 8.6/50 Mg Tab PO 1 tab BID NESTOR Administration Sodium Chloride 10 ml 02/06/22 22:00 02/19/22 11:03 Sodium Chloride 0.9% 10 Ml Flush Syringe IV 10 ml BID NESTOR Administration Sodium Chloride 10 ml 02/06/22 13:59 Sodium Chloride 0.9% 10 Ml Flush Syringe IV PRN PRN LINE FLUSH Nutrition/Malnutrition Assess - Dietary Evaluation Nutrition/Malnutrition Findings: Nutrition Notes Start: 02/07/22 13:09 Freq: Status: Active Protocol: Document 02/12/22 15:28 LATOYA (Rec: 02/12/22 15:44 LATOYA [id number]) Nutrition Notes Initial or Follow up Reassessment Other Pertinent Diagnosis Myasthenia gravis crisis Current Diet [facility] soft with chopped meats Labs/Tests Reviewed Pertinent Medications Reviewed Height 5 ft 10 in Weight 102.194 kg Umpire Body Weight (kg) 75.45 BMI 32.3 Weight Status Obese Subjective/Other Information Pt extubated on 02/09. Per COMPUTER TECH evaluation on 02/11, pt tolerated [facility] soft diet with chopped meats/gravy on meats. Observed consumption of 100% of entree for lunch today. He says the green beans and fruit cup contains too much magnesium for him; he avoids foods containing >10mg of magnesium. Burn Absent Trauma Absent #1 Nutrition Diagnosis Inadequate oral intake As Evidenced by Signs and Symptoms pt tolerating PO diet Diagnosis Progress(for reassessment Improved documentation) Is patient on ventilator? No Is Patient Ambulatory and/or Out of Bed No REE-([facility]-confined to bed) 2352.060 Kcal/Kg value to use for calculation 18 Approximate Energy Requirements Using 1839 kcal/Kg Calculation Used for Recommendations Kcal/kg Additional Notes Pro needs 0.8-1g/kg adjBW: 71- 89g/day Fluid needs 1ml/kcal Nutrition Intervention Change Diet Order: Continue current diet order Goal #1 PO intake to meet at least 75% energy and pro needs Follow-Up By: 02/20/22 Additional Comments F/U: intakes, wt <MAGDI MALLOY - Last Filed: 02/22/22 12:16> Assessment and Plan Assessment and plan: I saw and evaluated the patient. Discussed with the nurse practitioner and agree with their findings and plan as documented in this note. Hospitalist Physical - Constitutional Vitals: Temp Pulse Resp BP Pulse Ox 97.6 F 73 12 148/74 99 02/22/22 08:00 02/22/22 12:00 02/22/22 11:00 02/22/22 11:00 02/22/22 11:00 Results - Labs CBC & Chem 7: 02/22/22 03:30 02/22/22 03:30 Labs: Laboratory Last Values WBC 11.7 K/mm3 (4.5-11.0) H 02/22/22 03:30 RBC 5.16 M/mm3 (3.65-5.03) H 02/22/22 03:30 Hgb 11.4 gm/dl (11.8-15.2) L 02/22/22 03:30 Hct 37.5 % (35.5-45.6) 02/22/22 03:30 MCV 73 fl (84-94) L 02/22/22 03:30 MCH 22 pg (28-32) L 02/22/22 03:30 MCHC 31 % (32-34) L 02/22/22 03:30 RDW 18.5 % (13.2-15.2) H 02/22/22 03:30 Plt Count 229 K/mm3 (140-440) 02/22/22 03:30 Lymph % (Auto) 27.4 % (13.4-35.0) 02/21/22 09:50 Anson % (Auto) 7.3 % (0.0-7.3) 02/21/22 09:50 Eos % (Auto) 0.1 % (0.0-4.3) 02/21/22 09:50 Baso % (Auto) 0.2 % (0.0-1.8) 02/21/22 09:50 Lymph # (Auto) 3.6 K/mm3 (1.2-5.4) 02/21/22 09:50 Anson # (Auto) 1.0 K/mm3 (0.0-0.8) H 02/21/22 09:50 Eos # (Auto) 0.0 K/mm3 (0.0-0.4) 02/21/22 09:50 Baso # (Auto) 0.0 K/mm3 (0.0-0.1) 02/21/22 09:50 Seg Neutrophils % 65.0 % (40.0-70.0) 02/21/22 09:50 Seg Neutrophils # 8.5 K/mm3 (1.8-7.7) H 02/21/22 09:50 Fibrinogen 114 mg/dl (211-480) L* 02/22/22 10:11 ABG pH 7.333 pH Units (7.350-7.450) L 02/08/22 09:20 ABG pCO2 48.2 mm Hg 02/08/22 09:20 ABG pO2 114.7 mm Hg (80.0-90.0) H 02/08/22 09:20 ABG HCO3 25.0 mmol/L (20.0-26.0) 02/08/22 09:20 ABG O2 Saturation 97.9 % (95.0-99.0) 02/08/22 09:20 ABG O2 Content 15.1 (0.0-44) 02/08/22 09:20 ABG Base Excess -1.1 mmol/L (-2.0-3.0) 02/08/22 09:20 ABG Hemoglobin 11.1 gm/dl (14.0-18.0) L 02/08/22 09:20 ABG Carboxyhemoglobin 1.4 % (0.0-5.0) 02/08/22 09:20 ABG Methemoglobin 0.5 % (0.0-1.5) 02/08/22 09:20 Oxyhemoglobin 96.1 % (95.0-99.0) 02/08/22 09:20 FiO2 35 % 02/08/22 09:20 Sodium 139 mmol/L (137-145) 02/22/22 03:30 Potassium 4.7 mmol/L (3.6-5.0) D 02/22/22 03:30 Chloride 104.0 mmol/L (98-107) 02/22/22 03:30 Carbon Dioxide 27 mmol/L (22-30) 02/22/22 03:30 Anion Gap 13 mmol/L 02/22/22 03:30 BUN 9 mg/dL (9-20) 02/22/22 03:30 Creatinine 0.5 mg/dL (0.8-1.3) L 02/22/22 03:30 Estimated GFR > 60 ml/min 02/22/22 03:30 BUN/Creatinine Ratio 18 % 02/22/22 03:30 Glucose 99 mg/dL (75-100) 02/22/22 03:30 Calcium 9.3 mg/dL (8.4-10.2) 02/22/22 03:30 Total Bilirubin 0.30 mg/dL (0.1-1.2) 02/22/22 03:30 AST 14 units/L (5-40) 02/22/22 03:30 ALT 23 units/L (7-56) 02/22/22 03:30 Alkaline Phosphatase 38 units/L (35-129) 02/22/22 03:30 Total Protein 5.8 g/dL (6.3-8.2) L 02/22/22 03:30 Albumin 4.6 g/dL (3.9-5) 02/22/22 03:30 Albumin/Globulin Ratio 3.8 % 02/22/22 03:30 Actin IgG Antibody <20 U (<20) 02/16/22 04:52 Blood Type O POSITIVE 02/20/22 19:20 Antibody Screen Negative 02/20/22 19:20 Roberson/IV: Voiding Method Urinal Active Medications - Current Medications Current Medications: Generic Name Dose Route Start Last Admin Trade Name Freq PRN Reason Stop Dose Admin Acetaminophen 650 mg 02/06/22 15:00 02/22/22 08:12 Acetaminophen 325 Mg Tab PO 650 mg Q6H PRN Administration Pain MILD(1-3)/Fever >100.5/WEINBERG Albumin Human 200 gm 02/16/22 13:00 02/20/22 16:55 Albumin Human 5% (25 Gm/500 Ml) Inj IV 02/24/22 13:01 200 gm Q48H NESTOR Administration Albuterol 2.5 mg 02/06/22 15:00 02/15/22 21:54 Albuterol 2.5 Mg/3 Ml Nebu IH 2.5 mg Q3HRT PRN Administration Shortness Of Breath Diphenhydramine HCl 25 mg 02/15/22 14:06 02/16/22 11:49 Diphenhydramine 50 Mg/Ml Vial IV 25 mg Q6H PRN Administration Itching Enoxaparin Sodium 40 mg 02/06/22 22:00 02/21/22 21:07 Enoxaparin 40 Mg/0.4 Ml Inj SUB-Q 40 mg QDAY@2200 NESTOR Administration Protocol Famotidine 20 mg 02/12/22 10:00 02/22/22 09:25 Famotidine 20 Mg Tab PO 20 mg BID NESTOR Administration Hydrophilic Ointment 1 applic 02/07/22 10:55 Lip Therapy Vaseline TP Q2HR PRN Dry Lips Melatonin 5 mg 02/21/22 01:15 02/21/22 01:40 Melatonin 5 Mg Tab PO 5 mg QHS PRN Administration Sleep Multi-Ingred Cream/Lotion/Oil/Oint 1 applic 02/07/22 10:55 Mineral Oil/Petrolatum, White Ophth Oint 3.5 Gm OU Q4HR PRN Dry Eye(s) Mycophenolate Mofetil 1,000 mg 02/21/22 10:00 02/22/22 09:26 Mycophenolate 500 Mg Tab PO 1,000 mg BID NESTOR Administration Ondansetron HCl 4 mg 02/08/22 17:00 02/20/22 23:58 Ondansetron 4 Mg/2 Ml Inj IV 4 mg Q8H PRN Administration Nausea And Vomiting Oxycodone/Acetaminophen 1 tab 02/06/22 15:00 02/22/22 02:16 Oxycodone /Acetaminophen 5-325mg Tab PO 1 tab Q16H PRN Administration Pain, Moderate (4-6) Prednisone 80 mg 02/15/22 12:00 02/22/22 09:25 Prednisone 20 Mg Tab PO 80 mg QDAY NESTOR Administration Pyridostigmine [place] 180 mg 02/08/22 10:00 02/22/22 09:25 Pyridostigmine [place] 60 Mg Tab PO 180 mg DAILY NESTOR Administration Senna/Docusate Sodium 1 tab 02/12/22 10:00 02/22/22 11:23 Sennosides/Docusate Sodium 8.6/50 Mg Tab PO Not Given BID NESTOR Sodium Chloride 10 ml 02/06/22 22:00 02/22/22 09:27 Sodium Chloride 0.9% 10 Ml Flush Syringe IV 10 ml BID NESTOR Administration Sodium Chloride 10 ml 02/06/22 13:59 Sodium Chloride 0.9% 10 Ml Flush Syringe IV PRN PRN LINE FLUSH Nutrition/Malnutrition Assess - Dietary Evaluation Nutrition/Malnutrition Findings: Nutrition Notes Start: 02/07/22 13:09 Freq: Status: Active Protocol: Document 02/20/22 12:04 PRADEEP (Rec: 02/20/22 12:23 PRADEEP [id number]) Nutrition Notes Initial or Follow up Reassessment Current Diagnosis Respiratory Failure Other Pertinent Diagnosis Myasthenia Gravis. Current Diet Regular Diet (since L 02/19). Labs/Tests 02/20: Crea 0.5, Glu 107. Pertinent Medications 02/20: Nutritionally unremarkable. Height 5 ft 10 in Weight 102 kg Umpire Body Weight (kg) 75.45 BMI 32.2 Weight change and time frame Body weight on chart (192 Kg) is wrong. Unable to reach RN over the phone at this time. Weight Status Obese Subjective/Other Information RD consult for routine F/U on dietary advancement. Pt advanced to Regular Diet, Pt's PO intake of meals has been Good (100%), according to ADL notes. Pt is on NIV/Bi-PaP+, O2 saturation @ 100%, according top Physical Assessment History notes. COMPUTER TECH note on 02/15/22 14:34: Swallowing function was reassessed. Patient's swallowing function has declined since he was discharged from this service. Laryngeal elevation is reduced with slower oral transit time and aspiration with thins and semi solids. Recommend a pureed diet with nectar thickened liquids. Will continue to follow. Informed his nurse of findings. - END OF NOTE. Percent of energy/protein needs met: Prescribed Regular Diet provides for energy/protein needs (2,289 Kcal/89 g) during LOS. Burn Absent Trauma Absent GI Symptoms None Food Allergy No Skin Integrity/Comment Assessment WNL. Current % PO Good (75-100%) Minimum of two criteria No Fluid Accumulation N/A Reduced Raw Products Director Strength N/A (non-severe) Protein-Calorie Malnutrition N\A #1 Nutrition Diagnosis Inadequate oral intake Comments: Pt advanced to Regular Diet, Pt's PO intake of meals has been Good (100%), according to ADL notes. Diagnosis Progress(for reassessment Resolved documentation) Is patient on ventilator? No Is Patient Ambulatory and/or Out of Bed No REE-([facility]-confined to bed) 2349.732 Kcal/Kg value to use for calculation 20 Approximate Energy Requirements Using 2040 kcal/Kg Calculation Used for Recommendations Kcal/kg Additional Notes Protein: 0.8-1 g/Kg AdjBW; 71- 89 g/day. Fluids: 1 ml/Kcal, or as per MD. Nutrition Intervention Change Diet Order: Contrinue Regular Diet. Goal #1 Adjust the dietary intervention to better serve Pt's needs and clinical conditions during LOS. Follow-Up By: 02/27/22 Additional Comments Continue monitoring food tolerance, %PO intake of meals , and BM.
--- NOTE | 2022-02-19 14:29 | Progress Note ---
Assessment and Plan Myasthenic crisis Obesity Possible ANTON / OHS Blurry vision Mild hypokalemia Mild metabolic acidosis - repeat FVC 4.5L - complete Plasmapharesis X 5 treatments - transfer request refused earlier in admission - continue care as below otherwise; - continue BIPAP scheduled qhs with prn daytime use - continue to avoid aminoglycosides, flouroquinolones etc - continue accuchecks with glycemic control per SSI (While critically ill target blood glucose of 140-180 mg/dL; avoid hypoglycemia) - continue to wean supplemental oxygen for target O2 sat's > 90% acutely - aspiration precautions - prn bronchodilators with pulmonary hygiene per RT - avoid nephrotoxins, renally dose all medications - continue to avoid benzodiazepine's, reduce the possibility of delirium - AB's per ID rec's - prn analgesia per pain score - Maintenance of sleep-wake cycle, avoid delirium - G.I. & VTE prophylaxis - PT/OT/ROM exercises - mobility protocols for pressure ulcer prophylaxis - Monitor hemodynamics closely - continue other care per attending / other consultants - discharge planning ongoing concurrently .... Re-evaluate in am & prn I have spent ( >35 ) minutes with the patient w/ >50% of the time spent couns eling and/or coordinating care for this patient. Counseling topics and/or how time was spent coordinating patient's care is outlined in the impression and plan above. Subjective Date of service: 02/19/22 Principal diagnosis: Myasthenic crisis; Obesity; Possible ANTON/OHS; Blurry vision; Hypokalemia Interval history: Patient is seen today for: Myasthenic crisis; Obesity; Possible ANTON / OHS; Blurry vision; Mild hypokalemia; Mild metabolic acidosis Seen and examined at bedside; 24hour events reviewed; nursing and respiratory care staff consulted; no adverse overnight events reported to me; resting in bed; feels good today; denies N/V/F/C; no chest pain or SOB Objective Vital Signs - 12hr 02/19/22 02/19/22 02/19/22 03:00 04:00 05:00 Temperature 98.4 F Pulse Rate 58 L 50 L 48 L Respiratory 15 16 14 Rate Blood Pressure 94/49 103/42 107/44 O2 Sat by Pulse 100 98 100 Oximetry 02/19/22 02/19/22 06:00 07:00 Temperature Pulse Rate 49 L 57 L Respiratory 13 16 Rate Blood Pressure 121/38 134/57 O2 Sat by Pulse 100 100 Oximetry Constitutional: no acute distress, alert, other (young obese male without increased respiratory effort at rest) Eyes: non-icteric ENT: oropharynx moist Neck: supple, no lymphadenopathy, no JVD, other (large circumference) Effort: normal Ascultation: Bilateral: clear, diminished breath sounds Percussion: Bilateral: not dull Cardiovascular: regular rate and rhythm Gastrointestinal: normoactive bowel sounds, soft, non-tender, non-distended (protuberant) Integumentary: normal Extremities: no cyanosis, no edema, pulses normal, no ischemia or petechiae Neurologic: non-focal exam (grossly), pupils equal and round, CN II-XII normal, other (weak (3-4/5)) Psychiatric: mood appropriate, affect normal CBC and BMP: 02/18/22 07:18 02/18/22 07:18 ABG, PT/INR, D-dimer: ABG ABG pH 7.333 pH Units (7.350-7.450) L 02/08/22 09:20 ABG pCO2 48.2 mm Hg 02/08/22 09:20 ABG pO2 114.7 mm Hg (80.0-90.0) H 02/08/22 09:20 ABG O2 Saturation 97.9 % (95.0-99.0) 02/08/22 09:20 Abnormal lab findings: Abnormal Labs 02/06/22 02/06/22 02/06/22 12:39 12:39 13:59 WBC RBC 5.75 H Hgb Hct MCV 74 L MCH 23 L MCHC 30 L RDW 16.9 H Lymph % (Auto) 6.4 L [place] % (Auto) Lymph # (Auto) 0.5 L Seg Neutrophils % 89.3 H Fibrinogen ABG pH ABG pO2 ABG Hemoglobin 12.6 L Oxyhemoglobin Potassium 3.5 L Chloride 109.1 H Carbon Dioxide 20 L Creatinine 0.7 L Glucose 113 H Albumin 02/07/22 02/07/22 02/08/22 04:15 12:00 04:23 WBC RBC 5.10 H Hgb 11.5 L 11.0 L Hct MCV 72 L 74 L MCH 23 L 22 L MCHC 30 L RDW 17.3 H 17.1 H Lymph % (Auto) [place] % (Auto) 9.1 H Lymph # (Auto) Seg Neutrophils % Fibrinogen ABG pH ABG pO2 72.6 L ABG Hemoglobin 12.2 L Oxyhemoglobin 94.4 L Potassium Chloride Carbon Dioxide Creatinine Glucose Albumin 02/08/22 02/08/22 02/09/22 04:23 09:20 04:50 WBC RBC Hgb 10.4 L Hct 33.7 L MCV 73 L MCH 22 L MCHC 31 L RDW 17.5 H Lymph % (Auto) [place] % (Auto) Lymph # (Auto) Seg Neutrophils % Fibrinogen ABG pH 7.333 L ABG pO2 114.7 H ABG Hemoglobin 11.1 L Oxyhemoglobin Potassium Chloride 109.3 H Carbon Dioxide Creatinine 0.6 L Glucose Albumin 02/09/22 02/10/22 02/11/22 04:50 04:50 04:38 WBC 4.4 L 3.3 L RBC Hgb 10.1 L 10.4 L Hct 32.9 L 33.6 L MCV 73 L 73 L MCH 22 L 23 L MCHC 31 L 31 L RDW 17.2 H 17.0 H Lymph % (Auto) [place] % (Auto) Lymph # (Auto) Seg Neutrophils % Fibrinogen ABG pH ABG pO2 ABG Hemoglobin Oxyhemoglobin Potassium Chloride Carbon Dioxide Creatinine Glucose 107 H Albumin 02/11/22 02/12/22 02/13/22 04:38 04:25 04:17 WBC 3.7 L 3.5 L RBC Hgb 10.5 L 10.8 L Hct 34.5 L MCV 73 L 73 L MCH 22 L 22 L MCHC 30 L 30 L RDW 16.9 H 17.5 H Lymph % (Auto) [place] % (Auto) Lymph # (Auto) Seg Neutrophils % Fibrinogen ABG pH ABG pO2 ABG Hemoglobin Oxyhemoglobin Potassium Chloride Carbon Dioxide Creatinine 0.7 L Glucose 101 H Albumin 02/16/22 02/16/22 02/18/22 04:52 04:52 07:18 WBC RBC Hgb 11.4 L 11.4 L Hct 35.3 L MCV 71 L 72 L MCH 23 L 23 L MCHC RDW 17.4 H 17.3 H Lymph % (Auto) 43.5 H [place] % (Auto) 7.6 H 7.6 H Lymph # (Auto) Seg Neutrophils % 71.5 H Fibrinogen ABG pH ABG pO2 ABG Hemoglobin Oxyhemoglobin Potassium Chloride Carbon Dioxide Creatinine 0.6 L Glucose Albumin 3.5 L 02/18/22 02/18/22 07:18 07:18 WBC RBC Hgb Hct MCV MCH MCHC RDW Lymph % (Auto) [place] % (Auto) Lymph # (Auto) Seg Neutrophils % Fibrinogen 144 L* ABG pH ABG pO2 ABG Hemoglobin Oxyhemoglobin Potassium Chloride Carbon Dioxide Creatinine 0.5 L Glucose Albumin Allied health notes reviewed: nursing
[2022-02-19] MEDS: ACETAMINOPHEN 325 MG TAB PO PRN ×2 (15:55→22:01)
[2022-02-19] MEDS: ENOXAPARIN 40 MG/0.4 ML INJ SUB-Q SCH (22:01)
[2022-02-20] MEDS: oxyCODONE /ACETAMINOPHEN 5-325MG TAB PO PRN (04:19)
[2022-02-20 05:20] LABS: Mean Corpuscular HGB Conc 31 % (32-34); Mean Corpuscular Volume 73 fl (84-94); Platelet Count 218 K/mm3 (140-440); Red Blood Count 5.22 M/mm3 (3.65-5.03)
[2022-02-20 05:22] LABS: Hematocrit 37.9 % (35.5-45.6); Hemoglobin 11.6 gm/dl (11.8-15.2)
[2022-02-20 05:33] LABS: Blood Urea Nitrogen 11 mg/dL (9-20); Calcium 9.1 mg/dL (8.4-10.2); Hemolysis Index 4
[2022-02-20 05:35] LABS: BUN/Creatinine Ratio 22
[2022-02-20] MEDS: PYRIDOSTIGMINE BROMIDE 60 MG TAB PO SCH (10:49)
[2022-02-20] MEDS: MYCOPHENOLATE PO SCH ×3 (10:50→21:49)
[2022-02-20] MEDS: SENNOSIDES/DOCUSATE SODIUM 8.6/50 MG TAB PO SCH ×3 (10:50→21:49)
[2022-02-20] MEDS: predniSONE 20 MG TAB PO SCH (10:50)
[2022-02-20] MEDS: FAMOTIDINE 20 MG TAB PO SCH ×3 (10:50→21:49)
--- NOTE | 2022-02-20 15:57 | Progress Note ---
Assessment and Plan Myasthenic crisis, s/p MVS Obesity Possible ANTON / OHS Blurry vision Mild hypokalemia-resolved Mild metabolic acidosis-resolved Patient will undergo PLEX with Albumin and recieve Cyroprecipitated (Ordered) after per the [employer] team. Continue to monitor NIF Continue IMCU care in this critically ill patient. -Continue immunosuppresants- prednisone , pyridostigmine and cellcept. - continue to avoid aminoglycosides, flouroquinolones -continue to keep potassium at 4, Mag at 2 and Phos at >2.5 - continue to titrate supplemental oxygen to keep SpO2 90-92% - CPAP qhs and prn - continue bronchodilators with pulmonary hygiene per RT - continue accuchecks with glycemic control per SSI (While critically ill target blood glucose of 140-180 mg/dL; avoid hypoglycemia) - avoid nephrotoxins, renally dose all medications - continue to avoid benzodiazepines, reduce the possibility of delirium - prn analgesia per CPOT score - Maintenance of sleep-wake cycle, avoid delirium - VTE prophylaxis- Heparin - continue other care per attending / other consultants CONDITION: FAIR PROGNOSIS: GUARDED CODE STATUS: FULL CODE Subjective Date of service: 02/20/22 Principal diagnosis: Myasthenic crisis; Obesity; Possible ANTON/OHS; Blurry vis ion; Hypokalemia Interval history: Patient is seen today for: Myasthenic crisis; Obesity; Possible ANTON / OHS; Blurry vision; Mild hypokalemia; Mild metabolic acidosis Seen and examined at bedside; 24hour events reviewed; nursing and respiratory ca re staff consulted; no adverse overnight events reported to me; resting in bed; denies N/V/F/C; awake and alert, weakness much improved, he can clear secretions, swallowing well. Some subjective increase in weakness reported. On high dose Prednisone Dose, patient will undergo PLEX with Albumin and recieve Cyroprecipitated (Ordered) after per the [employer] team. Continue to monitor NIF t. Objective Vital Signs - 12hr 02/20/22 02/20/22 02/20/22 04:00 04:15 04:19 Temperature Pulse Rate 48 L Pulse Rate [ From Monitor] Respiratory 13 14 Rate Respiratory 16 Rate [Bilateral Lower Leg] Respiratory 16 Rate [L ribcage ] Blood Pressure 112/35 O2 Sat by Pulse 100 Oximetry 02/20/22 02/20/22 02/20/22 05:00 05:19 06:00 Temperature Pulse Rate 54 L 47 L Pulse Rate [ From Monitor] Respiratory 15 16 11 L Rate Respiratory Rate [Bilateral Lower Leg] Respiratory Rate [L ribcage ] Blood Pressure 135/62 125/60 O2 Sat by Pulse 100 100 Oximetry 02/20/22 02/20/22 02/20/22 07:00 07:20 08:00 Temperature 98.1 F Pulse Rate 56 L 70 Pulse Rate [ 75 From Monitor] Respiratory 13 18 Rate Respiratory Rate [Bilateral Lower Leg] Respiratory Rate [L ribcage ] Blood Pressure 134/67 143/76 O2 Sat by Pulse 100 100 Oximetry 02/20/22 02/20/22 02/20/22 09:02 10:00 11:00 Temperature 98.0 F Pulse Rate 83 100 H Pulse Rate [ From Monitor] Respiratory 25 H 25 H 22 Rate Respiratory Rate [Bilateral Lower Leg] Respiratory Rate [L ribcage ] Blood Pressure 143/76 143/76 132/86 O2 Sat by Pulse 100 88 98 Oximetry 02/20/22 12:00 Temperature Pulse Rate 96 H Pulse Rate [ 77 From Monitor] Respiratory 21 Rate Respiratory Rate [Bilateral Lower Leg] Respiratory Rate [L ribcage ] Blood Pressure 141/84 O2 Sat by Pulse 99 Oximetry Constitutional: no acute distress, alert, other (young obese male without increased respiratory effort at rest) Eyes: non-icteric ENT: oropharynx moist Neck: supple, no lymphadenopathy, no JVD, other (large circumference) Effort: normal Ascultation: Bilateral: clear, diminished breath sounds Percussion: Bilateral: not dull Cardiovascular: regular rate and rhythm Gastrointestinal: normoactive bowel sounds, soft, non-tender, non-distended (protuberant) Integumentary: normal Extremities: no cyanosis, no edema, pulses normal, no ischemia or petechiae Neurologic: non-focal exam (grossly), pupils equal and round, CN II-XII normal, other (weak (3-4/5)) Psychiatric: mood appropriate, affect normal CBC and BMP: 02/22/22 03:30 02/22/22 03:30 ABG, PT/INR, D-dimer: ABG ABG pH 7.333 pH Units (7.350-7.450) L 02/08/22 09:20 ABG pCO2 48.2 mm Hg 02/08/22 09:20 ABG pO2 114.7 mm Hg (80.0-90.0) H 02/08/22 09:20 ABG O2 Saturation 97.9 % (95.0-99.0) 02/08/22 09:20 Abnormal lab findings: Abnormal Labs 02/06/22 02/06/22 02/06/22 12:39 12:39 13:59 WBC RBC 5.75 H Hgb Hct MCV 74 L MCH 23 L MCHC 30 L RDW 16.9 H Lymph % (Auto) 6.4 L [place] % (Auto) Lymph # (Auto) 0.5 L Seg Neutrophils % 89.3 H Fibrinogen ABG pH ABG pO2 ABG Hemoglobin 12.6 L Oxyhemoglobin Potassium 3.5 L Chloride 109.1 H Carbon Dioxide 20 L Creatinine 0.7 L Glucose 113 H Albumin 02/07/22 02/07/22 02/08/22 04:15 12:00 04:23 WBC RBC 5.10 H Hgb 11.5 L 11.0 L Hct MCV 72 L 74 L MCH 23 L 22 L MCHC 30 L RDW 17.3 H 17.1 H Lymph % (Auto) [place] % (Auto) 9.1 H Lymph # (Auto) Seg Neutrophils % Fibrinogen ABG pH ABG pO2 72.6 L ABG Hemoglobin 12.2 L Oxyhemoglobin 94.4 L Potassium Chloride Carbon Dioxide Creatinine Glucose Albumin 02/08/22 02/08/22 02/09/22 04:23 09:20 04:50 WBC RBC Hgb 10.4 L Hct 33.7 L MCV 73 L MCH 22 L MCHC 31 L RDW 17.5 H Lymph % (Auto) [place] % (Auto) Lymph # (Auto) Seg Neutrophils % Fibrinogen ABG pH 7.333 L ABG pO2 114.7 H ABG Hemoglobin 11.1 L Oxyhemoglobin Potassium Chloride 109.3 H Carbon Dioxide Creatinine 0.6 L Glucose Albumin 02/09/22 02/10/22 02/11/22 04:50 04:50 04:38 WBC 4.4 L 3.3 L RBC Hgb 10.1 L 10.4 L Hct 32.9 L 33.6 L MCV 73 L 73 L MCH 22 L 23 L MCHC 31 L 31 L RDW 17.2 H 17.0 H Lymph % (Auto) [place] % (Auto) Lymph # (Auto) Seg Neutrophils % Fibrinogen ABG pH ABG pO2 ABG Hemoglobin Oxyhemoglobin Potassium Chloride Carbon Dioxide Creatinine Glucose 107 H Albumin 02/11/22 02/12/22 02/13/22 04:38 04:25 04:17 WBC 3.7 L 3.5 L RBC Hgb 10.5 L 10.8 L Hct 34.5 L MCV 73 L 73 L MCH 22 L 22 L MCHC 30 L 30 L RDW 16.9 H 17.5 H Lymph % (Auto) [place] % (Auto) Lymph # (Auto) Seg Neutrophils % Fibrinogen ABG pH ABG pO2 ABG Hemoglobin Oxyhemoglobin Potassium Chloride Carbon Dioxide Creatinine 0.7 L Glucose 101 H Albumin 02/16/22 02/16/22 02/18/22 04:52 04:52 07:18 WBC RBC Hgb 11.4 L 11.4 L Hct 35.3 L MCV 71 L 72 L MCH 23 L 23 L MCHC RDW 17.4 H 17.3 H Lymph % (Auto) 43.5 H [place] % (Auto) 7.6 H 7.6 H Lymph # (Auto) Seg Neutrophils % 71.5 H Fibrinogen ABG pH ABG pO2 ABG Hemoglobin Oxyhemoglobin Potassium Chloride Carbon Dioxide Creatinine 0.6 L Glucose Albumin 3.5 L 02/18/22 02/18/22 02/20/22 07:18 07:18 04:23 WBC RBC 5.22 H Hgb 11.6 L Hct MCV 73 L MCH 22 L MCHC 31 L RDW 18.0 H Lymph % (Auto) [place] % (Auto) Lymph # (Auto) Seg Neutrophils % Fibrinogen 144 L* ABG pH ABG pO2 ABG Hemoglobin Oxyhemoglobin Potassium Chloride Carbon Dioxide Creatinine 0.5 L Glucose Albumin 02/20/22 02/20/22 04:23 04:23 WBC RBC Hgb Hct MCV MCH MCHC RDW Lymph % (Auto) [place] % (Auto) Lymph # (Auto) Seg Neutrophils % Fibrinogen 89 L* ABG pH ABG pO2 ABG Hemoglobin Oxyhemoglobin Potassium Chloride Carbon Dioxide Creatinine 0.5 L Glucose 107 H Albumin Allied health notes reviewed: RT
--- NOTE | 2022-02-20 16:15 | Progress Note ---
Assessment and Plan Assessment and plan: This is a 36-year-old male with known past medical history of obesity and myasthenia gravis admitted for myasthenia gravis crisis. Hospital Course to Date: 02/07: S/p X1 dose of IV IG overnight, patient reported feeling much better and stronger this am, moving all extremities. Plan to wean off Bipap this am. Okay to start a diet if patient pass bedside swallow. D/W CCM plan for CT chest w con tomorrow to r/o thymoma. Neurology consulted. 02/08: S/p emergent intubattion by cipriano yesterday. Now intubated and sedated, RASS -2. Neurology recommendations noted. Resumed home meds. Will wean off sedation this am for possible SAT/SBT. CT chest also noted with no evidence of thymoma. Continue IVIG. Attending received call back from [facility]. Transfer was declined, no available ICU beds at this time. They recommend continuing IVIG and possible plasma exchange. Awaiting on Neurology final recommendations. 02/09: S/p Extubation this am. Desated to 85% on 3L NC, SPO2 improved to 88% on 8L NC. This am CXR noted, worsen opacity of the left side. CCM at the bedside, X1 dose of IV Lasix ordered and place patient on Bipap. Low Threshold for reintubation. Plan of care and the high probability for reintubation was discussed with patient at the bedside. Patient verbalized understanding and agree with current care plan. Continue IVIG, Awaiting on Neurology final recommendations. 02/10: Tolerated Bipap, now on 2L NC this am, SPO2 at 100%. No s/s of any acute respiratory distress noted. This am CXR also noted with significant improvement. Continue IVIGm and Bipap at night. Incentive Spirometer also ordered. advance diet as tolerated. PT/OT/Speech consulted. 02/11: Completed x5days of IVIG overnight. Stable on RA, still complaining of generalized weakness, other stable. Diet advanced to solid this am, patient is tolerating it. Continue IS and Bipap at night. Encourage mobility as tolerated, PT/OT/Speech consult pending. 02/12: CPAP prn, currently on RA. Improved strength to BLE and BUE per patient. 02/13: Increased weakness reported on encounter. increased steroid dose to prednisone 40 mg po daily. Continue pyridostigmine and cellcept. Possible d/c tomorrow. 02/14: Weakness improved however still continues to have difficulty with strength. Still has right eye lid droop. Patient increased to prednisone 60 mg po daily. He has had 4 myasthenia gravis crises in the past and was initiated on high dose steroids with terminal worker taper by her OP neurologist. Pt recommended home with home health care PT. Ambulation is challenging as patient requires a rolling walker. 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 Patient is not a resident of [place]. States his home state is [place]. He has a sister in [place] who's address he uses for mailing purposes. Will work with CM to coordinate placement. 02/15: worsened strength. Admits to dysphagia and shortness of breath today. Given worsening symptomology transferring back to ICU for close monitoring. Plasma exchange ordered, first tx tomorrow, coordinated with Dr Katya Manley. Will place vascat today/tomorrow AM for exchanges. Steroid dose increased to Prednisone 80 mg po daily in interim. Will attempt to call neurologist tomorrow AM. 02/16: Plan for plasma exchange today. Labs reviewed, cbc/bmp/fibrinogen all unremarkable. Trialysis catheter placed, pt tolerated procedure well. Taryn Manley will be here today do 4L exchange. A total of 5 exchanges will be completed over 9 days. A total of 20 L 5% albumin will be needed, pharmacy was notified yesterday of this. Continue prednisone 80 mg po daily dose. 02/17: No overnight events. No acute complaints. Tolerated PLEX well. Continue steroids and will follow for symptom improvement. 02/18: Plex tx today. XR ordered due to severe rib pain, no rib fx ID. Will continue to follow for sx improvement. 02/19: Doing much better this am. OOB and sitting up in the chair this am, stable on RA. Still complaining of generalized but reported feeling better. Continue plasma exchange and PO prednisone, cellcept, and Mycophenolate. Continue PT/OT. 02/20: Patient seen and examined, clinically showing some improvement, will continue on current Prednisone Dose, patients fibrinogen is lower than 100, we do not have plasma inhouse, patient will undergo PLEX with Albumin and recieve Cyroprecipitated (Ordered) after per the [facility] team. Continue to monitor NIF Continue IMCU care in this critically ill patient. 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 He was passing through [facility] when symptoms started - S/p emergent intubation by anethesia - CT chest w con showed no evidence of thymoma - Neurology consulted, appreciated recommendations - Resumed home meds: Cellcept, Mestinon, and PO Prednisone - Completed X 5 days of IVIG - Plasma exchange initiated on 02/16, Received X2 treament. For a total of 5 exchanges to be completed over 9 days. - CCM also on consult, appreciated recommendations - Patient reported that his neurologist in [place] is Dr. Billie Delgado - Transfer to [facility] was declined, no available ICU beds at this time. They recommend continuing IVIG and possible plasma exchange #Acute Hypoxemic Respiratory Failure #Probable ANTNO- On CPAP at home #Former Smoker - most likely related to MG crisis - S/p emergent intubation by anesthesia on 02/07 for airway protection - 02/09 s/p extubation - Stable on RA this am - CCM consulted, appreciate recommendations - Completed X5 days of IVIG - Continue plasma exchange and IS ordered - Continue Bipap at night - Aspiration precaution HOB above 30 - PRN O2 supplementation as needed - Continue SPO2 monitoring for SPO2 goal above 92% #Hepatic Hemangiomas - noted fro CT chest w/o con - Stable, LFTs within normal range - Outpatient follow up for US and further workups #Obesity - Balanced diet, increase physical activity discharge, outpatient pulmonary follow-up for sleep study, weight reduction. #GI/DVT Prophylaxis - PPI- Pepcid - Lovenox SubQ - SCD to bilateral lower extremities while in bed #Advance Care Planning - Disease education data, care plan, diagnoses, and prognosis were discussed with patient at the bedside. Patient is a Full code. Patient acknowledged understanding and agreement with current care plan. - Patient reported in case of an emergency and he is unable to make his own decision, his NOK is his aunt who resides in [place], [place]. Heike Araujo, phone# The high probability of a clinically significant, sudden or life threatening deterioration of the [multiple] system(s) required my full and direct attention, intervention and personal management. The aggregate critical care time was [60] minutes. This time is in addition to time spent performing reported procedures but includes the following: [x] Data Review and interpretation [x] Patient assessment and monitoring of vital signs [x] Documentation [x] Medication orders and management History Interval history: Patient seen and examined, no new complaints today. Patient continues to demonstrate improved respiratory status and tolerating diet, no complaints of fatigue at this time. Hospitalist Physical - Physical exam Narrative exam: General appearance: Present: no acute distress, well-nourished, obese, sitting up - EENT Eyes: Present: PERRL, EOM intact ENT: hearing intact - Neck Neck: Present: normal ROM - Respiratory Respiratory effort: normal Respiratory: bilateral: diminished - Cardiovascular Rhythm: regular Heart Sounds: Present: S1 & S2 - Extremities Extremities: no ischemia, pulses intact, pulses symmetrical Extremity abnormal: edema - Peripheral Assessment Generalized Edema Type: Non-pitting Edema Degree: 2+ Capillary Refill: < 3 seconds Skin Temperature: Warm Peripheral Pulses: within normal limits - Abdominal General gastrointestinal: soft, non-distended, normal bowel sounds - Integumentary Integumentary: Present: clear, warm, dry - Psychiatric Psychiatric: appropriate mood/affect, cooperative - Neurologic Neurologic: CNII-XII intact, moves all extremities - Allied Health Allied health notes reviewed: nursing, case management - Constitutional Vitals: Temp Pulse Resp BP Pulse Ox 98.0 F 77 17 141/84 100 02/20/22 11:00 02/20/22 12:00 02/20/22 12:00 02/20/22 12:00 02/20/22 12:00 General appearance: Present: no acute distress, well-nourished, obese Results - Labs CBC & Chem 7: 02/20/22 04:23 02/20/22 04:23 Labs: Laboratory Last Values WBC 9.9 K/mm3 (4.5-11.0) 02/20/22 04:23 RBC 5.22 M/mm3 (3.65-5.03) H 02/20/22 04:23 Hgb 11.6 gm/dl (11.8-15.2) L 02/20/22 04:23 Hct 37.9 % (35.5-45.6) 02/20/22 04:23 MCV 73 fl (84-94) L 02/20/22 04:23 MCH 22 pg (28-32) L 02/20/22 04:23 MCHC 31 % (32-34) L 02/20/22 04:23 RDW 18.0 % (13.2-15.2) H 02/20/22 04:23 Plt Count 218 K/mm3 (140-440) 02/20/22 04:23 Lymph % (Auto) 43.5 % (13.4-35.0) H 02/18/22 07:18 Lyman % (Auto) 7.6 % (0.0-7.3) H 02/18/22 07:18 Eos % (Auto) 0.2 % (0.0-4.3) 02/18/22 07:18 Baso % (Auto) 0.3 % (0.0-1.8) 02/18/22 07:18 Lymph # (Auto) 3.0 K/mm3 (1.2-5.4) 02/18/22 07:18 Lyman # (Auto) 0.5 K/mm3 (0.0-0.8) 02/18/22 07:18 Eos # (Auto) 0.0 K/mm3 (0.0-0.4) 02/18/22 07:18 Baso # (Auto) 0.0 K/mm3 (0.0-0.1) 02/18/22 07:18 Seg Neutrophils % 48.4 % (40.0-70.0) 02/18/22 07:18 Seg Neutrophils # 3.4 K/mm3 (1.8-7.7) 02/18/22 07:18 Fibrinogen 89 mg/dl (211-480) L* 02/20/22 04:23 ABG pH 7.333 pH Units (7.350-7.450) L 02/08/22 09:20 ABG pCO2 48.2 mm Hg 02/08/22 09:20 ABG pO2 114.7 mm Hg (80.0-90.0) H 02/08/22 09:20 ABG HCO3 25.0 mmol/L (20.0-26.0) 02/08/22 09:20 ABG O2 Saturation 97.9 % (95.0-99.0) 02/08/22 09:20 ABG O2 Content 15.1 (0.0-44) 02/08/22 09:20 ABG Base Excess -1.1 mmol/L (-2.0-3.0) 02/08/22 09:20 ABG Hemoglobin 11.1 gm/dl (14.0-18.0) L 02/08/22 09:20 ABG Carboxyhemoglobin 1.4 % (0.0-5.0) 02/08/22 09:20 ABG Methemoglobin 0.5 % (0.0-1.5) 02/08/22 09:20 Oxyhemoglobin 96.1 % (95.0-99.0) 02/08/22 09:20 FiO2 35 % 02/08/22 09:20 Sodium 143 mmol/L (137-145) 02/20/22 04:23 Potassium 4.1 mmol/L (3.6-5.0) 02/20/22 04:23 Chloride 106.7 mmol/L (98-107) 02/20/22 04:23 Carbon Dioxide 29 mmol/L (22-30) 02/20/22 04:23 Anion Gap 11 mmol/L 02/20/22 04:23 BUN 11 mg/dL (9-20) 02/20/22 04:23 Creatinine 0.5 mg/dL (0.8-1.3) L 02/20/22 04:23 Estimated GFR > 60 ml/min 02/20/22 04:23 BUN/Creatinine Ratio 22 % 02/20/22 04:23 Glucose 107 mg/dL (75-100) H 02/20/22 04:23 Calcium 9.1 mg/dL (8.4-10.2) 02/20/22 04:23 Total Bilirubin 0.40 mg/dL (0.1-1.2) 02/07/22 04:15 AST 9 units/L (5-40) 02/07/22 04:15 ALT 11 units/L (7-56) 02/07/22 04:15 Alkaline Phosphatase 75 units/L (35-129) 02/07/22 04:15 Total Protein 8.0 g/dL (6.3-8.2) 02/16/22 04:52 Albumin 3.5 g/dL (3.9-5) L 02/16/22 04:52 Albumin/Globulin Ratio 1.3 % 02/07/22 04:15 [place]/IV: Voiding Method Urinal Active Medications - Current Medications Current Medications: Generic Name Dose Route Start Last Admin Trade Name Freq PRN Reason Stop Dose Admin Acetaminophen 650 mg 02/06/22 15:00 02/19/22 22:01 Acetaminophen 325 Mg Tab PO 650 mg Q6H PRN Administration Pain MILD(1-3)/Fever >100.5/WEINBERG Albumin Human 200 gm 02/16/22 13:00 02/18/22 14:05 Albumin Human 5% (25 Gm/500 Ml) Inj IV 02/24/22 13:01 200 gm Q48H NESTOR Administration Albuterol 2.5 mg 02/06/22 15:00 02/15/22 21:54 Albuterol 2.5 Mg/3 Ml Nebu IH 2.5 mg Q3HRT PRN Administration Shortness Of Breath Diphenhydramine HCl 25 mg 02/15/22 14:06 02/16/22 11:49 Diphenhydramine 50 Mg/Ml Vial IV 25 mg Q6H PRN Administration Itching Enoxaparin Sodium 40 mg 02/06/22 22:00 02/19/22 22:01 Enoxaparin 40 Mg/0.4 Ml Inj SUB-Q 40 mg QDAY@2200 NESTOR Administration Protocol Famotidine 20 mg 02/12/22 10:00 02/20/22 10:50 Famotidine 20 Mg Tab PO 20 mg BID NESTOR Administration Hydrophilic Ointment 1 applic 02/07/22 10:55 Lip Therapy Vaseline TP Q2HR PRN Dry Lips Multi-Ingred Cream/Lotion/Oil/Oint 1 applic 02/07/22 10:55 Mineral Oil/Petrolatum, White Ophth Oint 3.5 Gm OU Q4HR PRN Dry Eye(s) Mycophenolate Mofetil 1,000 mg 02/12/22 10:00 02/20/22 10:50 Mycophenolate 1000 Mg/5 Ml Oral Liqd PO 1,000 mg BID NESTOR Administration Ondansetron HCl 4 mg 02/08/22 17:00 02/10/22 18:25 Ondansetron 4 Mg/2 Ml Inj IV 4 mg Q8H PRN Administration Nausea And Vomiting Oxycodone/Acetaminophen 1 tab 02/06/22 15:00 02/20/22 04:19 Oxycodone /Acetaminophen 5-325mg Tab PO 1 tab Q16H PRN Administration Pain, Moderate (4-6) Prednisone 80 mg 02/15/22 12:00 02/20/22 10:50 Prednisone 20 Mg Tab PO 80 mg QDAY NESTOR Administration Pyridostigmine [place] 180 mg 02/08/22 10:00 02/20/22 10:49 Pyridostigmine [place] 60 Mg Tab PO 180 mg DAILY NESTOR Administration Senna/Docusate Sodium 1 tab 02/12/22 10:00 02/20/22 10:50 Sennosides/Docusate Sodium 8.6/50 Mg Tab PO 1 tab BID NESTOR Administration Sodium Chloride 10 ml 02/06/22 22:00 02/20/22 10:50 Sodium Chloride 0.9% 10 Ml Flush Syringe IV 10 ml BID NESTOR Administration Sodium Chloride 10 ml 02/06/22 13:59 Sodium Chloride 0.9% 10 Ml Flush Syringe IV PRN PRN LINE FLUSH Nutrition/Malnutrition Assess - Dietary Evaluation Nutrition/Malnutrition Findings: Nutrition Notes Start: 02/07/22 13:09 Freq: Status: Active Protocol: Document 02/20/22 12:04 PRADEEP (Rec: 02/20/22 12:23 PRADEEP [id number]) Nutrition Notes Initial or Follow up Reassessment Current Diagnosis Respiratory Failure Other Pertinent Diagnosis Myasthenia Gravis. Current Diet Regular Diet (since L 02/19). Labs/Tests 02/20: Crea 0.5, Glu 107. Pertinent Medications 02/20: Nutritionally unremarkable. Height 5 ft 10 in Weight 102 kg [place] Body Weight (kg) 75.45 BMI 32.2 Weight change and time frame Body weight on chart (192 Kg) is wrong. Unable to reach RN over the phone at this time. Weight Status Obese Subjective/Other Information RD consult for routine F/U on dietary advancement. Pt advanced to Regular Diet, Pt's PO intake of meals has been Good (100%), according to ADL notes. Pt is on NIV/Bi-PaP+, O2 saturation @ 100%, according top Physical Assessment History notes. WAREHOUSE CONSULTANT note on 02/15/22 14:34: Swallowing function was reassessed. Patient's swallowing function has declined since he was discharged from this service. Laryngeal elevation is reduced with slower oral transit time and aspiration with thins and semi solids. Recommend a pureed diet with nectar thickened liquids. Will continue to follow. Informed his nurse of findings. - END OF NOTE. Percent of energy/protein needs met: Prescribed Regular Diet provides for energy/protein needs (2,289 Kcal/89 g) during LOS. Burn Absent Trauma Absent GI Symptoms None Food Allergy No Skin Integrity/Comment Assessment WNL. Current % PO Good (75-100%) Minimum of two criteria No Fluid Accumulation N/A Reduced Angiography Technologist Strength N/A (non-severe) Protein-Calorie Malnutrition N\A #1 Nutrition Diagnosis Inadequate oral intake Comments: Pt advanced to Regular Diet, Pt's PO intake of meals has been Good (100%), according to ADL notes. Diagnosis Progress(for reassessment Resolved documentation) Is patient on ventilator? No Is Patient Ambulatory and/or Out of Bed No REE-([facility]-confined to bed) 2349.732 Kcal/Kg value to use for calculation 20 Approximate Energy Requirements Using 2040 kcal/Kg Calculation Used for Recommendations Kcal/kg Additional Notes Protein: 0.8-1 g/Kg AdjBW; 71- 89 g/day. Fluids: 1 ml/Kcal, or as per MD. Nutrition Intervention Change Diet Order: Contrinue Regular Diet. Goal #1 Adjust the dietary intervention to better serve Pt's needs and clinical conditions during LOS. Follow-Up By: 02/27/22 Additional Comments Continue monitoring food tolerance, %PO intake of meals , and BM.
[2022-02-20] MEDS: ALBUMIN HUMAN 5% (25 GM/500 ML) INJ IV SCH (16:55)
[2022-02-20] MEDS: CALCIUM GLUCONATE 1,000 MG/NS 100 ML PREMIX IV SCH (16:55)
[2022-02-20] MEDS: ACETAMINOPHEN 325 MG TAB PO PRN (20:08)
[2022-02-20] MEDS: ENOXAPARIN 40 MG/0.4 ML INJ SUB-Q SCH ×2 (20:11→21:51)
[2022-02-20] MEDS ORDERED: SODIUM CHLORIDE 0.9% 500 ML 500 ML ONE (22:34)
[2022-02-20] MEDS: ONDANSETRON 4 MG/2 ML INJ IV PRN (23:58)
[2022-02-21] MEDS: MELATONIN 5 MG TAB PO PRN (01:40)
--- NOTE | 2022-02-21 08:52 | Progress Note ---
Assessment and Plan 36 YO Male with MG currently taking Cellcept, Mycophenolate, and Prednisone presents ED for evaluation. Patient states that he had experienced generalized weakness over the past 1 day with progressive and worsening symptoms over the same timeframe. Patient states that he was able to walk earlier today but he is unable to walk. Patient also acknowledges upper extremity weakness as well as difficulty speaking. EMS was notified and upon arrival the patient was found to be in distress and subsequently transported to [facility] for further care and evaluation of the aforementioned symptoms. The patient was seen and evaluated in the emergency department. All lab and imaging studies reviewed. Patient found to have myasthenia gravis crisis with increased risk for worsening symptoms as well as development of acute hypoxemic respiratory failure. Patient placed on noninvasive positive pressure ventilation in the emergency department and admitted to ICU. IVIG ordered in the emergency department. Patient denies fever, chills, chest pain, palpitation productive cough, skin rash and recent Contact, known exposure to COVID-19. Patient eventually intubated and placed on mechanical ventilation. Patient extubated now. Patient has history vaping 2 times a day x 14 years. Stopped vaping 3 years ago. Denies alcohol abuse. Used Marijuna in his teenage years. Not used Marijuana for long time. 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 Has no children. No known drug allergies. Patient has history of Sleep apnea. Uses CPAP 12 cm H2O during night time. Patient Obese, awake, resting on room air. O2 saturation 99%. No acute respiratory distress at rest. Patient afebrile. No leukocytosis, Blood pressure 173/82, rate 77 respirations 17. Chest xray 02/10/22 Previous density of the left has almost completely cleared with only minimal basilar atelectasis remaining. Right lung field clear. No pneumothorax. CT scan of chest 02/08/[address] evidence of thymoma. Hypoattenuating lesions of the liver statistically reflect hepatic hemangiomas. One of these lesions demonstrate characteristic peripheral puddling of contrast, the second does not clearly demonstrate specific pattern of enhancement. Ultrasound targeting these lesions may be useful for further characterization and confirmation of hemangioma. Moderate subsegmental atelectasis of the bilateral lungs. Satisfactory positioning of endotracheal tube and esophagogastric tube. Chest xray done 02/17/22 reported No significant pulmonary or pleural abnormality. No pneumothorax. Left rib series done on 02/18/22 reported he left ribs appear unremarkable. There is no visible left rib fracture. No acute pulmonary disease.. Patient is on Po Prednisone, Albuterolinhaler, S/C Lovenox and famotidine. I spent critical care time of 35 minutes in obtaining history, review the chart, Examining the patient, review xrays, lab results, talking to the nursing staff , respiratory therapy and work up plan of treatment. - Patient Problems (1) Acute hypoxemic respiratory failure Current Visit: Yes Status: Acute Plan to address problem: CPAP during night time. Continue prednisone. Continue S/C Lovenox. Continue famotidine. Albuterol inhaler prn for shortness of breath. (2) Obesity Current Visit: Yes Status: Acute Qualifiers: Body mass index: BMI 33.0-33.9 Plan to address problem: Counseled to loose weight Exercise and diet. (3) Sleep apnea Current Visit: Yes Status: Acute Plan to address problem: Patient says he has history of sleep apnea. No sleep study results available at this time. Continue CPAP as she is using at home. Recommend to loose weight. Explained sleep hygiene. Recommend not to drive or operate heavy equipment with sleepiness. Avoid alcohol, sedatives and Narcotics If sleep study is while back, recommend to repeat sleep study as out patient. (4) Myasthenia gravis Current Visit: Yes Status: Acute Plan to address problem: Management as per primary care and neurology. Subjective Date of service: 02/21/22 Principal diagnosis: Myasthenic crisis; Obesity; Possible ANTON/OHS; Blurry vision; Hypokalemia Interval history: 36 YO Male with MG currently taking Cellcept, Mycophenolate, and Prednisone presents ED for evaluation. Patient states that he had experienced generalized weakness over the past 1 day with progressive and worsening symptoms over the same timeframe. Patient states that he was able to walk earlier today but he is unable to walk. Patient also acknowledges upper extremity weakness as well as difficulty speaking. EMS was notified and upon arrival the patient was found to be in distress and subsequently transported to [facility] for further care and evaluation of the aforementioned symptoms. The patient was seen and evaluated in the emergency department. All lab and imaging studies reviewed. Patient found to have myasthenia gravis crisis with increased risk for worsening symptoms as well as development of acute hypoxemic respiratory failure. Patient placed on noninvasive positive pressure ventilation in the emergency department and admitted to ICU. IVIG ordered in the emergency department. Patient denies fever, chills, chest pain, palpitation productive cough, skin josé miguel h and recent Contact, known exposure to COVID-19. Patient eventually intubated and placed on mechanical ventilation. Patient extubated now. Patient has history vaping 2 times a day x 14 years. Stopped vaping 3 years ago. Denies alcohol abuse. Used Marijuna in his teenage years. Not used Marijuana for long time. 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 Has no children. No known drug allergies. Patient has history of Sleep apnea. Uses CPAP 12 cm H2O during night time. Patient Obese, awake, resting on room air. O2 saturation 99%. No acute respiratory distress at rest. Patient afebrile. No leukocytosis, Blood pressure 173/82, rate 77 respirations 17. Chest xray 02/10/22 Previous density of the left has almost completely cleared with only minimal basilar atelectasis remaining. Right lung field clear. No pneumothorax. CT scan of chest 02/08/[address] evidence of thymoma. Hypoattenuating lesions of the liver statistically reflect hepatic hemangiomas. One of these lesions demonstrate characteristic peripheral puddling of contrast, the second does not clearly demonstrate specific pattern of enhancement. Ultrasound targeting these lesions may be useful for further characterization and confirmation of hemangioma. Moderate subsegmental atelectasis of the bilateral lungs. Satisfactory positioning of endotracheal tube and esophagogastric tube. Chest xray done 02/17/22 reported No significant pulmonary or pleural abnormality. No pneumothorax. Left rib series done on 02/18/22 reported he left ribs appear unremarkable. There is no visible left rib fracture. No acute pulmonary disease. Patient is on Po Prednisone, Albuterol inhaler, S/C Lovenox and famotidine. Objective Vital Signs - 12hr 02/20/22 02/20/22 02/20/22 20:52 21:00 21:08 Temperature Pulse Rate 75 Pulse Rate [ From Monitor] Respiratory 19 16 Rate Blood Pressure 155/77 O2 Sat by Pulse 97 98 Oximetry 02/20/22 02/20/22 02/20/22 21:30 21:55 22:00 Temperature Pulse Rate 65 94 H 74 Pulse Rate [ From Monitor] Respiratory 19 15 12 Rate Blood Pressure 145/62 139/63 139/67 O2 Sat by Pulse 98 100 99 Oximetry 02/20/22 02/20/22 02/20/22 22:30 23:00 23:10 Temperature 98.5 F Pulse Rate 67 61 63 Pulse Rate [ From Monitor] Respiratory 15 17 15 Rate Blood Pressure 132/53 144/70 138/62 O2 Sat by Pulse 98 100 100 Oximetry 02/20/22 02/20/22 02/21/22 23:25 23:30 00:00 Temperature 98.5 F Pulse Rate 62 59 L 61 Pulse Rate [ 61 From Monitor] Respiratory 15 15 14 Rate Blood Pressure 145/70 133/58 131/69 O2 Sat by Pulse 100 99 99 Oximetry 02/21/22 02/21/22 02/21/22 00:30 01:00 01:30 Temperature Pulse Rate 65 55 L 55 L Pulse Rate [ From Monitor] Respiratory 17 18 13 Rate Blood Pressure 129/67 125/61 128/66 O2 Sat by Pulse 97 100 100 Oximetry 02/21/22 02/21/22 02/21/22 01:46 02:00 02:05 Temperature Pulse Rate 53 L 55 L 51 L Pulse Rate [ From Monitor] Respiratory 17 15 12 Rate Blood Pressure 128/62 130/61 130/61 O2 Sat by Pulse 100 99 100 Oximetry 02/21/22 02/21/22 02/21/22 02:30 03:00 03:30 Temperature Pulse Rate 51 L 49 L 57 L Pulse Rate [ From Monitor] Respiratory 16 13 18 Rate Blood Pressure 126/60 136/71 140/63 O2 Sat by Pulse 99 100 100 Oximetry 02/21/22 02/21/22 02/21/22 03:40 04:00 04:30 Temperature Pulse Rate 48 L 48 L 59 L Pulse Rate [ From Monitor] Respiratory 15 13 Rate Blood Pressure 127/63 138/69 O2 Sat by Pulse 99 100 Oximetry 02/21/22 02/21/22 02/21/22 05:00 05:30 06:00 Temperature Pulse Rate 51 L 51 L 52 L Pulse Rate [ From Monitor] Respiratory 13 13 15 Rate Blood Pressure 126/61 142/65 143/51 O2 Sat by Pulse 100 100 100 Oximetry 02/21/22 02/21/22 02/21/22 06:21 06:30 07:00 Temperature 96.9 F L Pulse Rate 60 53 L Pulse Rate [ From Monitor] Respiratory 17 16 Rate Blood Pressure 139/69 139/59 O2 Sat by Pulse 100 99 Oximetry 02/21/22 08:00 Temperature 98.2 F Pulse Rate Pulse Rate [ From Monitor] Respiratory Rate Blood Pressure O2 Sat by Pulse Oximetry Constitutional: no acute distress, alert, other (young obese male without increased respiratory effort at rest) Eyes: non-icteric ENT: oropharynx moist Neck: supple, no lymphadenopathy, no JVD, other (large circumference) Effort: normal Ascultation: Bilateral: diminished breath sounds Percussion: Bilateral: not dull Cardiovascular: regular rate and rhythm Gastrointestinal: normoactive bowel sounds, soft, non-tender, non-distended (protuberant) Integumentary: normal Extremities: no cyanosis, no edema, pulses normal, no ischemia or petechiae Neurologic: non-focal exam (grossly), pupils equal and round, CN II-XII normal, other (weak (3-4/5)) Psychiatric: mood appropriate, affect normal CBC and BMP: 02/22/22 03:30 02/22/22 03:30 ABG, PT/INR, D-dimer: ABG ABG pH 7.333 pH Units (7.350-7.450) L 02/08/22 09:20 ABG pCO2 48.2 mm Hg 02/08/22 09:20 ABG pO2 114.7 mm Hg (80.0-90.0) H 02/08/22 09:20 ABG O2 Saturation 97.9 % (95.0-99.0) 02/08/22 09:20 Abnormal lab findings: Abnormal Labs 02/06/22 02/06/22 02/06/22 12:39 12:39 13:59 WBC RBC 5.75 H Hgb Hct MCV 74 L MCH 23 L MCHC 30 L RDW 16.9 H Lymph % (Auto) 6.4 L [place] % (Auto) Lymph # (Auto) 0.5 L Seg Neutrophils % 89.3 H Fibrinogen ABG pH ABG pO2 ABG Hemoglobin 12.6 L Oxyhemoglobin Potassium 3.5 L Chloride 109.1 H Carbon Dioxide 20 L Creatinine 0.7 L Glucose 113 H Albumin 02/07/22 02/07/22 02/08/22 04:15 12:00 04:23 WBC RBC 5.10 H Hgb 11.5 L 11.0 L Hct MCV 72 L 74 L MCH 23 L 22 L MCHC 30 L RDW 17.3 H 17.1 H Lymph % (Auto) [place] % (Auto) 9.1 H Lymph # (Auto) Seg Neutrophils % Fibrinogen ABG pH ABG pO2 72.6 L ABG Hemoglobin 12.2 L Oxyhemoglobin 94.4 L Potassium Chloride Carbon Dioxide Creatinine Glucose Albumin 02/08/22 02/08/22 02/09/22 04:23 09:20 04:50 WBC RBC Hgb 10.4 L Hct 33.7 L MCV 73 L MCH 22 L MCHC 31 L RDW 17.5 H Lymph % (Auto) [place] % (Auto) Lymph # (Auto) Seg Neutrophils % Fibrinogen ABG pH 7.333 L ABG pO2 114.7 H ABG Hemoglobin 11.1 L Oxyhemoglobin Potassium Chloride 109.3 H Carbon Dioxide Creatinine 0.6 L Glucose Albumin 02/09/22 02/10/22 02/11/22 04:50 04:50 04:38 WBC 4.4 L 3.3 L RBC Hgb 10.1 L 10.4 L Hct 32.9 L 33.6 L MCV 73 L 73 L MCH 22 L 23 L MCHC 31 L 31 L RDW 17.2 H 17.0 H Lymph % (Auto) [place] % (Auto) Lymph # (Auto) Seg Neutrophils % Fibrinogen ABG pH ABG pO2 ABG Hemoglobin Oxyhemoglobin Potassium Chloride Carbon Dioxide Creatinine Glucose 107 H Albumin 02/11/22 02/12/22 02/13/22 04:38 04:25 04:17 WBC 3.7 L 3.5 L RBC Hgb 10.5 L 10.8 L Hct 34.5 L MCV 73 L 73 L MCH 22 L 22 L MCHC 30 L 30 L RDW 16.9 H 17.5 H Lymph % (Auto) [place] % (Auto) Lymph # (Auto) Seg Neutrophils % Fibrinogen ABG pH ABG pO2 ABG Hemoglobin Oxyhemoglobin Potassium Chloride Carbon Dioxide Creatinine 0.7 L Glucose 101 H Albumin 02/16/22 02/16/22 02/18/22 04:52 04:52 07:18 WBC RBC Hgb 11.4 L 11.4 L Hct 35.3 L MCV 71 L 72 L MCH 23 L 23 L MCHC RDW 17.4 H 17.3 H Lymph % (Auto) 43.5 H [place] % (Auto) 7.6 H 7.6 H Lymph # (Auto) Seg Neutrophils % 71.5 H Fibrinogen ABG pH ABG pO2 ABG Hemoglobin Oxyhemoglobin Potassium Chloride Carbon Dioxide Creatinine 0.6 L Glucose Albumin 3.5 L 02/18/22 02/18/22 02/20/22 07:18 07:18 04:23 WBC RBC 5.22 H Hgb 11.6 L Hct MCV 73 L MCH 22 L MCHC 31 L RDW 18.0 H Lymph % (Auto) [place] % (Auto) Lymph # (Auto) Seg Neutrophils % Fibrinogen 144 L* ABG pH ABG pO2 ABG Hemoglobin Oxyhemoglobin Potassium Chloride Carbon Dioxide Creatinine 0.5 L Glucose Albumin 02/20/22 02/20/22 04:23 04:23 WBC RBC Hgb Hct MCV MCH MCHC RDW Lymph % (Auto) [place] % (Auto) Lymph # (Auto) Seg Neutrophils % Fibrinogen 89 L* ABG pH ABG pO2 ABG Hemoglobin Oxyhemoglobin Potassium Chloride Carbon Dioxide Creatinine 0.5 L Glucose 107 H Albumin Chest x-ray: report reviewed, image reviewed Additional Studies: CHEST 1 VIEW 02/17/2022 5:18 PM INDICATION / CLINICAL INFORMATION: pt. c/o rib pain. COMPARISON: One day prior FINDINGS: SUPPORT DEVICES: Right IJ catheter unchanged. HEART / MEDIASTINUM: No significant abnormality. LUNGS / PLEURA: No significant pulmonary or pleural abnormality. No pneumothorax. ADDITIONAL FINDINGS: No significant additional findings. IMPRESSION: 1. No significant change. LEFT RIB SERIES, 4 VIEWS 02/18/22 INDICATION / CLINICAL INFORMATION: R/O Rib fracture. Rib pain COMPARISON: Chest radiograph, 02/18/2022 FINDINGS: The left ribs are well visualized. I do not see any suggestion for left rib fracture or other rib abnormality. Both lungs appear grossly clear. No pneumothorax or pleural effusion. Stable positioning of right IJ central venous line. IMPRESSION: 1. The left ribs appear unremarkable. There is no visible left rib fracture. 2. No acute pulmonary disease. Allied health notes reviewed: nursing
[2022-02-21] MEDS: predniSONE 20 MG TAB PO SCH (09:54)
[2022-02-21] MEDS: PYRIDOSTIGMINE BROMIDE 60 MG TAB PO SCH (09:54)
[2022-02-21] MEDS: FAMOTIDINE 20 MG TAB PO SCH ×2 (09:55→21:07)
[2022-02-21] MEDS: SENNOSIDES/DOCUSATE SODIUM 8.6/50 MG TAB PO SCH ×2 (09:55→21:07)
[2022-02-21] MEDS: MYCOPHENOLATE 500 MG TAB PO SCH ×2 (10:19→21:07)
[2022-02-21 10:46] LABS: Blood Urea Nitrogen 10 mg/dL (9-20); Calcium 9.2 mg/dL (8.4-10.2); Hemolysis Index 24
[2022-02-21 10:48] LABS: BUN/Creatinine Ratio 14
[2022-02-21 10:59] LABS: Basophils % (Auto) 0.2 % (0.0-1.8); Eosinophils % (Auto) 0.1 % (0.0-4.3); Hematocrit 38.8 % (35.5-45.6); Hemoglobin 11.9 gm/dl (11.8-15.2); Lymphocytes # (Auto) 3.6 K/mm3 (1.2-5.4); Lymphocytes % (Auto) 27.4 % (13.4-35.0); Mean Corpuscular HGB Conc 31 % (32-34); Mean Corpuscular Volume 73 fl (84-94); Monocytes % (Auto) 7.3 % (0.0-7.3); Platelet Count 233 K/mm3 (140-440); Red Blood Count 5.36 M/mm3 (3.65-5.03); Red Cell Distribution Width 18.4 % (13.2-15.2)
--- NOTE | 2022-02-21 13:01 | Progress Note ---
Assessment and Plan Assessment and plan: This is a 36-year-old male with known past medical history of obesity and myasthenia gravis admitted for myasthenia gravis crisis. Hospital Course to Date: 02/07: S/p X1 dose of IV IG overnight, patient reported feeling much better and stronger this am, moving all extremities. Plan to wean off Bipap this am. Okay to start a diet if patient pass bedside swallow. D/W CCM plan for CT chest w con tomorrow to r/o thymoma. Neurology consulted. 02/08: S/p emergent intubattion by cipriano yesterday. Now intubated and sedated, RASS -2. Neurology recommendations noted. Resumed home meds. Will wean off sedation this am for possible SAT/SBT. CT chest also noted with no evidence of thymoma. Continue IVIG. Attending received call back from [facility]. Transfer was declined, no available ICU beds at this time. They recommend continuing IVIG and possible plasma exchange. Awaiting on Neurology final recommendations. 02/09: S/p Extubation this am. Desated to 85% on 3L NC, SPO2 improved to 88% on 8L NC. This am CXR noted, worsen opacity of the left side. CCM at the bedside, X1 dose of IV Lasix ordered and place patient on Bipap. Low Threshold for reintubation. Plan of care and the high probability for reintubation was discussed with patient at the bedside. Patient verbalized understanding and agree with current care plan. Continue IVIG, Awaiting on Neurology final recommendations. 02/10: Tolerated Bipap, now on 2L NC this am, SPO2 at 100%. No s/s of any acute respiratory distress noted. This am CXR also noted with significant improvement. Continue IVIGm and Bipap at night. Incentive Spirometer also ordered. advance diet as tolerated. PT/OT/Speech consulted. 02/11: Completed x5days of IVIG overnight. Stable on RA, still complaining of generalized weakness, other stable. Diet advanced to solid this am, patient is tolerating it. Continue IS and Bipap at night. Encourage mobility as tolerated, PT/OT/Speech consult pending. 02/12: CPAP prn, currently on RA. Improved strength to BLE and BUE per patient. 02/13: Increased weakness reported on encounter. increased steroid dose to prednisone 40 mg po daily. Continue pyridostigmine and cellcept. Possible d/c tomorrow. 02/14: Weakness improved however still continues to have difficulty with strength. Still has right eye lid droop. Patient increased to prednisone 60 mg po daily. 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 Pt recommended home with home health care PT. Ambulation is challenging as patient requires a rolling walker. 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 Patient is not a resident of [place]. States his home state is [place]. He has a sister in [place] who's address he uses for mailing purposes. Will work with CM to coordinate placement. 02/15: worsened strength. Admits to dysphagia and shortness of breath today. Given worsening symptomology transferring back to ICU for close monitoring. Plasma exchange ordered, first tx tomorrow, coordinated with Dr Katya Manley. Will place vascat today/tomorrow AM for exchanges. Steroid dose increased to Prednisone 80 mg po daily in interim. Will attempt to call neurologist tomorrow AM. 02/16: Plan for plasma exchange today. Labs reviewed, cbc/bmp/fibrinogen all unremarkable. Trialysis catheter placed, pt tolerated procedure well. Taryn Manley will be here today do 4L exchange. A total of 5 exchanges will be completed over 9 days. A total of 20 L 5% albumin will be needed, pharmacy was notified yesterday of this. Continue prednisone 80 mg po daily dose. 02/17: No overnight events. No acute complaints. Tolerated PLEX well. Continue steroids and will follow for symptom improvement. 02/18: Plex tx today. XR ordered due to severe rib pain, no rib fx ID. Will continue to follow for sx improvement. 02/19: Doing much better this am. OOB and sitting up in the chair this am, stable on RA. Still complaining of generalized but reported feeling better. Continue plasma exchange and PO prednisone, cellcept, and Mycophenolate. Continue PT/OT. 02/20: Patient seen and examined, clinically showing some improvement, will continue on current Prednisone Dose, patients fibrinogen is lower than 100, we do not have plasma inhouse, patient will undergo PLEX with Albumin and recieve Cyroprecipitated (Ordered) after per the [facility] team. Continue to monitor NIF Continue IMCU care in this critically ill patient. 02/21: Tolerated PLEX yesterday, Fibrinogen improved to 100. Patient has leukocytosis today without fever, no new neuro deficits reported today. Will request Neuro-revaluation. Case management continues to work on safe discharge plan. Plan discussed with the patient. 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 He was passing through [facility] when symptoms started - S/p emergent intubation by anethesia - CT chest w con showed no evidence of thymoma - Neurology consulted, appreciated recommendations - Resumed home meds: Cellcept, Mestinon, and PO Prednisone - Completed X 5 days of IVIG - Plasma exchange initiated on 02/16, Received X2 treament. For a total of 5 exchanges to be completed over 9 days. - CCM also on consult, appreciated recommendations - Patient reported that his neurologist in [place] is Dr. Billie Delgado - Transfer to [facility] was declined, no available ICU beds at this time. They recommend continuing IVIG and possible plasma exchange #Acute Hypoxemic Respiratory Failure #Probable ANTON- On CPAP at home #Former Smoker - most likely related to MG crisis - S/p emergent intubation by anesthesia on 02/07 for airway protection - 02/09 s/p extubation - Stable on RA this am - CCM consulted, appreciate recommendations - Completed X5 days of IVIG - Continue plasma exchange and IS ordered - Continue Bipap at night - Aspiration precaution HOB above 30 - PRN O2 supplementation as needed - Continue SPO2 monitoring for SPO2 goal above 92% #Hepatic Hemangiomas - noted fro CT chest w/o con - Stable, LFTs within normal range - Outpatient follow up for US and further workups #Obesity - Balanced diet, increase physical activity discharge, outpatient pulmonary follow-up for sleep study, weight reduction. #GI/DVT Prophylaxis - PPI- Pepcid - Lovenox SubQ - SCD to bilateral lower extremities while in bed #Advance Care Planning - Disease education data, care plan, diagnoses, and prognosis were discussed with patient at the bedside. Patient is a Full code. Patient acknowledged understanding and agreement with current care plan. - Patient reported in case of an emergency and he is unable to make his own decision, his NOK is his aunt who resides in [place], [place]. Heike Araujo, phone# The high probability of a clinically significant, sudden or life threatening deterioration of the [multiple] system(s) required my full and direct attention, intervention and personal management. The aggregate critical care time was [60] minutes. This time is in addition to time spent performing reported procedures but includes the following: [x] Data Review and interpretation [x] Patient assessment and monitoring of vital signs [x] Documentation [x] Medication orders and management History Interval history: Patient seen and examined, no new complaints today. ambulating around the rousseau way, no new complaints Hospitalist Physical - Physical exam Narrative exam: General appearance: Present: no acute distress, well-nourished, obese, sitting up - EENT Eyes: Present: PERRL, EOM intact ENT: hearing intact - Neck Neck: Present: normal ROM - Respiratory Respiratory effort: normal Respiratory: bilateral: diminished - Cardiovascular Rhythm: regular Heart Sounds: Present: S1 & S2 - Extremities Extremities: no ischemia, pulses intact, pulses symmetrical Extremity abnormal: edema - Peripheral Assessment Generalized Edema Type: Non-pitting Edema Degree: 2+ Capillary Refill: < 3 seconds Skin Temperature: Warm Peripheral Pulses: within normal limits - Abdominal General gastrointestinal: soft, non-distended, normal bowel sounds - Integumentary Integumentary: Present: clear, warm, dry - Psychiatric Psychiatric: appropriate mood/affect, cooperative - Neurologic Neurologic: CNII-XII intact, moves all extremities - Allied Health Allied health notes reviewed: nursing, case management - Constitutional Vitals: Temp Pulse Resp BP Pulse Ox 98.2 F 61 14 144/66 99 02/21/22 08:00 02/21/22 12:00 02/21/22 12:00 02/21/22 12:00 02/21/22 12:00 General appearance: Present: no acute distress, well-nourished, obese Results - Labs CBC & Chem 7: 02/21/22 09:50 02/21/22 09:50 Labs: Laboratory Last Values WBC 13.1 K/mm3 (4.5-11.0) H 02/21/22 09:50 RBC 5.36 M/mm3 (3.65-5.03) H 02/21/22 09:50 Hgb 11.9 gm/dl (11.8-15.2) 02/21/22 09:50 Hct 38.8 % (35.5-45.6) 02/21/22 09:50 MCV 73 fl (84-94) L 02/21/22 09:50 MCH 22 pg (28-32) L 02/21/22 09:50 MCHC 31 % (32-34) L 02/21/22 09:50 RDW 18.4 % (13.2-15.2) H 02/21/22 09:50 Plt Count 233 K/mm3 (140-440) 02/21/22 09:50 Lymph % (Auto) 27.4 % (13.4-35.0) 02/21/22 09:50 [place] % (Auto) 7.3 % (0.0-7.3) 02/21/22 09:50 Eos % (Auto) 0.1 % (0.0-4.3) 02/21/22 09:50 Baso % (Auto) 0.2 % (0.0-1.8) 02/21/22 09:50 Lymph # (Auto) 3.6 K/mm3 (1.2-5.4) 02/21/22 09:50 [place] # (Auto) 1.0 K/mm3 (0.0-0.8) H 02/21/22 09:50 Eos # (Auto) 0.0 K/mm3 (0.0-0.4) 02/21/22 09:50 Baso # (Auto) 0.0 K/mm3 (0.0-0.1) 02/21/22 09:50 Seg Neutrophils % 65.0 % (40.0-70.0) 02/21/22 09:50 Seg Neutrophils # 8.5 K/mm3 (1.8-7.7) H 02/21/22 09:50 Fibrinogen 100 mg/dl (211-480) L* 02/21/22 09:50 ABG pH 7.333 pH Units (7.350-7.450) L 02/08/22 09:20 ABG pCO2 48.2 mm Hg 02/08/22 09:20 ABG pO2 114.7 mm Hg (80.0-90.0) H 02/08/22 09:20 ABG HCO3 25.0 mmol/L (20.0-26.0) 02/08/22 09:20 ABG O2 Saturation 97.9 % (95.0-99.0) 02/08/22 09:20 ABG O2 Content 15.1 (0.0-44) 02/08/22 09:20 ABG Base Excess -1.1 mmol/L (-2.0-3.0) 02/08/22 09:20 ABG Hemoglobin 11.1 gm/dl (14.0-18.0) L 02/08/22 09:20 ABG Carboxyhemoglobin 1.4 % (0.0-5.0) 02/08/22 09:20 ABG Methemoglobin 0.5 % (0.0-1.5) 02/08/22 09:20 Oxyhemoglobin 96.1 % (95.0-99.0) 02/08/22 09:20 FiO2 35 % 02/08/22 09:20 Sodium 140 mmol/L (137-145) 02/21/22 09:50 Potassium 3.6 mmol/L (3.6-5.0) 02/21/22 09:50 Chloride 105.2 mmol/L (98-107) 02/21/22 09:50 Carbon Dioxide 25 mmol/L (22-30) 02/21/22 09:50 Anion Gap 13 mmol/L 02/21/22 09:50 BUN 10 mg/dL (9-20) 02/21/22 09:50 Creatinine 0.7 mg/dL (0.8-1.3) L 02/21/22 09:50 Estimated GFR > 60 ml/min 02/21/22 09:50 BUN/Creatinine Ratio 14 % 02/21/22 09:50 Glucose 100 mg/dL (75-100) 02/21/22 09:50 Calcium 9.2 mg/dL (8.4-10.2) 02/21/22 09:50 Total Bilirubin 0.40 mg/dL (0.1-1.2) 02/07/22 04:15 AST 9 units/L (5-40) 02/07/22 04:15 ALT 11 units/L (7-56) 02/07/22 04:15 Alkaline Phosphatase 75 units/L (35-129) 02/07/22 04:15 Total Protein 8.0 g/dL (6.3-8.2) 02/16/22 04:52 Albumin 3.5 g/dL (3.9-5) L 02/16/22 04:52 Albumin/Globulin Ratio 1.3 % 02/07/22 04:15 Actin IgG Antibody <20 U (<20) 02/16/22 04:52 Blood Type O POSITIVE 02/20/22 19:20 Antibody Screen Negative 02/20/22 19:20 [place]/IV: Voiding Method Urinal Active Medications - Current Medications Current Medications: Generic Name Dose Route Start Last Admin Trade Name Freq PRN Reason Stop Dose Admin Acetaminophen 650 mg 02/06/22 15:00 02/20/22 20:08 Acetaminophen 325 Mg Tab PO 650 mg Q6H PRN Administration Pain MILD(1-3)/Fever >100.5/WEINBERG Albumin Human 200 gm 02/16/22 13:00 02/20/22 16:55 Albumin Human 5% (25 Gm/500 Ml) Inj IV 02/24/22 13:01 200 gm Q48H NESTOR Administration Albuterol 2.5 mg 02/06/22 15:00 02/15/22 21:54 Albuterol 2.5 Mg/3 Ml Nebu IH 2.5 mg Q3HRT PRN Administration Shortness Of Breath Diphenhydramine HCl 25 mg 02/15/22 14:06 02/16/22 11:49 Diphenhydramine 50 Mg/Ml Vial IV 25 mg Q6H PRN Administration Itching Enoxaparin Sodium 40 mg 02/06/22 22:00 02/20/22 21:51 Enoxaparin 40 Mg/0.4 Ml Inj SUB-Q Not Given QDAY@2200 [facility] Protocol Famotidine 20 mg 02/12/22 10:00 02/21/22 09:55 Famotidine 20 Mg Tab PO 20 mg BID NESTOR Administration Hydrophilic Ointment 1 applic 02/07/22 10:55 Lip Therapy Vaseline TP Q2HR PRN Dry Lips Melatonin 5 mg 02/21/22 01:15 02/21/22 01:40 Melatonin 5 Mg Tab PO 5 mg QHS PRN Administration Sleep Multi-Ingred Cream/Lotion/Oil/Oint 1 applic 02/07/22 10:55 Mineral Oil/Petrolatum, White Ophth Oint 3.5 Gm OU Q4HR PRN Dry Eye(s) Mycophenolate Mofetil 1,000 mg 02/21/22 10:00 02/21/22 10:19 Mycophenolate 500 Mg Tab PO 1,000 mg BID NESTOR Administration Ondansetron HCl 4 mg 02/08/22 17:00 02/20/22 23:58 Ondansetron 4 Mg/2 Ml Inj IV 4 mg Q8H PRN Administration Nausea And Vomiting Oxycodone/Acetaminophen 1 tab 02/06/22 15:00 02/20/22 04:19 Oxycodone /Acetaminophen 5-325mg Tab PO 1 tab Q16H PRN Administration Pain, Moderate (4-6) Prednisone 80 mg 02/15/22 12:00 02/21/22 09:54 Prednisone 20 Mg Tab PO 80 mg QDAY NESTOR Administration Pyridostigmine [place] 180 mg 02/08/22 10:00 02/21/22 09:54 Pyridostigmine [place] 60 Mg Tab PO 180 mg DAILY NESTOR Administration Senna/Docusate Sodium 1 tab 02/12/22 10:00 02/21/22 09:55 Sennosides/Docusate Sodium 8.6/50 Mg Tab PO 1 tab BID NESTOR Administration Sodium Chloride 10 ml 02/06/22 22:00 02/21/22 09:59 Sodium Chloride 0.9% 10 Ml Flush Syringe IV 10 ml BID NESTOR Administration Sodium Chloride 10 ml 02/06/22 13:59 Sodium Chloride 0.9% 10 Ml Flush Syringe IV PRN PRN LINE FLUSH Nutrition/Malnutrition Assess - Dietary Evaluation Nutrition/Malnutrition Findings: Nutrition Notes Start: 02/07/22 13:09 Freq: Status: Active Protocol: Document 02/20/22 12:04 PRADEEP (Rec: 02/20/22 12:23 PRADEEP [id number]) Nutrition Notes Initial or Follow up Reassessment Current Diagnosis Respiratory Failure Other Pertinent Diagnosis Myasthenia Gravis. Current Diet Regular Diet (since L 02/19). Labs/Tests 02/20: Crea 0.5, Glu 107. Pertinent Medications 02/20: Nutritionally unremarkable. Height 5 ft 10 in Weight 102 kg [place] Body Weight (kg) 75.45 BMI 32.2 Weight change and time frame Body weight on chart (192 Kg) is wrong. Unable to reach RN over the phone at this time. Weight Status Obese Subjective/Other Information RD consult for routine F/U on dietary advancement. Pt advanced to Regular Diet, Pt's PO intake of meals has been Good (100%), according to ADL notes. Pt is on NIV/Bi-PaP+, O2 saturation @ 100%, according top Physical Assessment History notes. COUNTER TENDER note on 02/15/22 14:34: Swallowing function was reassessed. Patient's swallowing function has declined since he was discharged from this service. Laryngeal elevation is reduced with slower oral transit time and aspiration with thins and semi solids. Recommend a pureed diet with nectar thickened liquids. Will continue to follow. Informed his nurse of findings. - END OF NOTE. Percent of energy/protein needs met: Prescribed Regular Diet provides for energy/protein needs (2,289 Kcal/89 g) during LOS. Burn Absent Trauma Absent GI Symptoms None Food Allergy No Skin Integrity/Comment Assessment WNL. Current % PO Good (75-100%) Minimum of two criteria No Fluid Accumulation N/A Reduced [place] Strength N/A (non-severe) Protein-Calorie Malnutrition N\A #1 Nutrition Diagnosis Inadequate oral intake Comments: Pt advanced to Regular Diet, Pt's PO intake of meals has been Good (100%), according to ADL notes. Diagnosis Progress(for reassessment Resolved documentation) Is patient on ventilator? No Is Patient Ambulatory and/or Out of Bed No REE-([facility]-confined to bed) 2349.732 Kcal/Kg value to use for calculation 20 Approximate Energy Requirements Using 2040 kcal/Kg Calculation Used for Recommendations Kcal/kg Additional Notes Protein: 0.8-1 g/Kg AdjBW; 71- 89 g/day. Fluids: 1 ml/Kcal, or as per MD. Nutrition Intervention Change Diet Order: Contrinue Regular Diet. Goal #1 Adjust the dietary intervention to better serve Pt's needs and clinical conditions during LOS. Follow-Up By: 02/27/22 Additional Comments Continue monitoring food tolerance, %PO intake of meals , and BM.
[2022-02-21] MEDS: ENOXAPARIN 40 MG/0.4 ML INJ SUB-Q SCH (21:07)
[2022-02-21] MEDS: ACETAMINOPHEN 325 MG TAB PO PRN (21:10)
[2022-02-22] MEDS: oxyCODONE /ACETAMINOPHEN 5-325MG TAB PO PRN ×2 (02:16→23:07)
[2022-02-22 03:40] LABS: Mean Corpuscular HGB Conc 31 % (32-34); Mean Corpuscular Volume 73 fl (84-94); Platelet Count 229 K/mm3 (140-440); Red Blood Count 5.16 M/mm3 (3.65-5.03); Red Cell Distribution Width 18.5 % (13.2-15.2)
[2022-02-22 03:41] LABS: Hematocrit 37.5 % (35.5-45.6); Hemoglobin 11.4 gm/dl (11.8-15.2)
[2022-02-22 04:04] LABS: Alanine Aminotransferase 23 units/L (7-56); Albumin 4.6 g/dL (3.9-5); Blood Urea Nitrogen 9 mg/dL (9-20); Calcium 9.3 mg/dL (8.4-10.2); Hemolysis Index 8
[2022-02-22 04:05] LABS: BUN/Creatinine Ratio 18
[2022-02-22] MEDS: ACETAMINOPHEN 325 MG TAB PO PRN ×2 (08:12→14:22)
[2022-02-22] MEDS: FAMOTIDINE 20 MG TAB PO SCH ×2 (09:25→21:12)
[2022-02-22] MEDS: PYRIDOSTIGMINE BROMIDE 60 MG TAB PO SCH (09:25)
[2022-02-22] MEDS: predniSONE 20 MG TAB PO SCH (09:25)
[2022-02-22] MEDS: MYCOPHENOLATE 500 MG TAB PO SCH ×2 (09:26→21:12)
--- NOTE | 2022-02-22 10:19 | Progress Note ---
Assessment and Plan Assessment and plan: This is a 36-year-old male with known past medical history of obesity and myasthenia gravis admitted for myasthenia gravis crisis. Hospital Course to Date: 02/07: S/p X1 dose of IV IG overnight, patient reported feeling much better and stronger this am, moving all extremities. Plan to wean off Bipap this am. Okay to start a diet if patient pass bedside swallow. D/W CCM plan for CT chest w con tomorrow to r/o thymoma. Neurology consulted. 02/08: S/p emergent intubation by sherriethehamleta yesterday. Now intubated and sedated, RASS -2. Neurology recommendations noted. Resumed home meds. Will wean off sedation this am for possible SAT/SBT. CT chest also noted with no evidence of thymoma. Continue IVIG. Attending received call back from [facility]. Transfer was declined, no available ICU beds at this time. They recommend continuing IVIG and possible plasma exchange. Awaiting on Neurology final recommendations. 02/09: S/p Extubation this am. Desated to 85% on 3L NC, SPO2 improved to 88% on 8L NC. This am CXR noted, worsen opacity of the left side. CCM at the bedside, X1 dose of IV Lasix ordered and place patient on Bipap. Low Threshold for reintubation. Plan of care and the high probability for reintubation was discussed with patient at the bedside. Patient verbalized understanding and agree with current care plan. Continue IVIG, Awaiting on Neurology final recommendations. 02/10: Tolerated Bipap, now on 2L NC this am, SPO2 at 100%. No s/s of any acute respiratory distress noted. This am CXR also noted with significant improvement. Continue IVIGm and Bipap at night. Incentive Spirometer also ordered. advance diet as tolerated. PT/OT/Speech consulted. 02/11: Completed x5days of IVIG overnight. Stable on RA, still complaining of generalized weakness, other stable. Diet advanced to solid this am, patient is tolerating it. Continue IS and Bipap at night. Encourage mobility as tolerated, PT/OT/Speech consult pending. 02/12: CPAP prn, currently on RA. Improved strength to BLE and BUE per patient. 02/13: Increased weakness reported on encounter. increased steroid dose to prednisone 40 mg po daily. Continue pyridostigmine and cellcept. Possible d/c tomorrow. 02/14: Weakness improved however still continues to have difficulty with strength. Still has right eye lid droop. Patient increased to prednisone 60 mg po daily. He has had 4 myasthenia gravis crises in the past and was initiated on high dose steroids with buttermaker helper taper by her OP neurologist. Pt recommended home with home health care PT. Ambulation is challenging as patient requires a rolling walker. 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 Patient is not a resident of [place]. States his home state is [place]. He has a sister in [place] who's address he uses for mailing purposes. Will work with CM to coordinate placement. 02/15: worsened strength. Admits to dysphagia and shortness of breath today. Given worsening symptmology transferring back to ICU for close monitoring. Plasma exchange ordered, first tx tomorrow, coordinated with Dr Katya Manley. Will place vascat today/tomorrow AM for exchanges. Steroid dose increased to Prednisone 80 mg po daily in interim. Will attempt to call neurologist tomorrow AM. 02/16: Plan for plasma exchange today. Labs reviewed, cbc/bmp/fibrinogen all unremarkable. Trialysis catheter placed, pt tolerated procedure well. Taryn Manley will be here today do 4L exchange. A total of 5 exchanges will be completed over 9 days. A total of 20 L 5% albumin will be needed, pharmacy was notified yesterday of this. Continue prednisone 80 mg po daily dose. 02/17: No overnight events. No acute complaints. Tolerated PLEX well. Continue steroids and will follow for symptom improvement. 02/18: Plex tx today. XR ordered due to severe rib pain, no rib fx ID. Will continue to follow for sx improvement. 02/19: Doing much better this am. OOB and sitting up in the chair this am, stable on RA. Still complaining of generalized but reported feeling better. Continue plasma exchange and PO prednisone, cellcept, and Mycophenolate. Continue PT/OT. 02/20: Patient seen and examined, clinically showing some improvement, will continue on current Prednisone Dose, patients fibrinogen is lower than 100, we do not have plasma inhouse, patient will undergo PLEX with Albumin and recieve Cyroprecipitated (Ordered) after per the [facility] team. Continue to monitor NIF Continue IMCU care in this critically ill patient. 02/21: Tolerated PLEX yesterday, Fibrinogen improved to 100. Patient has leukocytosis today without fever, no new neuro deficits reported today. Will request Neuro-revaluation. Case management continues to work on safe discharge plan. Plan discussed with the patient. Dispo based on evaluation by Neuro 02/22: Patient seen and examined today, awaiting 4/5 PLEX therapy, awaiting Neurology re-evaluation. Discussed with case management and patient about discharge plans. 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 He was passing through [place] when symptoms started - S/p emergent intubation by anethesia - CT chest w con showed no evidence of thymoma - Neurology consulted, appreciated recommendations - Resumed home meds: Cellcept, Mestinon, and PO Prednisone - Completed X 5 days of IVIG - Plasma exchange initiated on 02/16, Received X2 treament. For a total of 5 exchanges to be completed over 9 days. - CCM also on consult, appreciated recommendations - Patient reported that his neurologist in [place] is Dr. Billie Delgado - Transfer to [facility] was declined, no available ICU beds at this time. They recommend continuing IVIG and possible plasma exchange #Acute Hypoxemic Respiratory Failure #Probable ANTON- On CPAP at home #Former Smoker - most likely related to MG crisis - S/p emergent intubation by anesthesia on 02/07 for airway protection - 02/09 s/p extubation - Stable on RA this am - CCM consulted, appreciate recommendations - Completed X5 days of IVIG - Continue plasma exchange and IS ordered - Continue Bipap at night - Aspiration precaution HOB above 30 - PRN O2 supplementation as needed - Continue SPO2 monitoring for SPO2 goal above 92% #Hepatic Hemangiomas - noted fro CT chest w/o con - Stable, LFTs within normal range - Outpatient follow up for US and further workups #Obesity - Balanced diet, increase physical activity discharge, outpatient pulmonary follow-up for sleep study, weight reduction. #GI/DVT Prophylaxis - PPI- Pepcid - Lovenox SubQ - SCD to bilateral lower extremities while in bed #Advance Care Planning - Disease education data, care plan, diagnoses, and prognosis were discussed with patient at the bedside. Patient is a Full code. Patient acknowledged understanding and agreement with current care plan. - Patient reported in case of an emergency and he is unable to make his own d ecision, his NOK is his aunt who resides in [place], [place]. Heike Araujo, phone# The high probability of a clinically significant, sudden or life threatening deterioration of the [multiple] system(s) required my full and direct attention, intervention and personal management. The aggregate critical care time was [60] minutes. This time is in addition to time spent performing reported procedures but includes the following: [x] Data Review and interpretation [x] Patient assessment and monitoring of vital signs [x] Documentation [x] Medication orders and management History Interval history: Patient seen and examined, no new complaints today. ambulating around the rousseau way, no new complaints Hospitalist Physical - Physical exam Narrative exam: General appearance: Present: no acute distress, well-nourished, obese, sitting up - EENT Eyes: Present: PERRL, EOM intact ENT: hearing intact - Neck Neck: Present: normal ROM - Respiratory Respiratory effort: normal Respiratory: bilateral: diminished - Cardiovascular Rhythm: regular Heart Sounds: Present: S1 & S2 - Extremities Extremities: no ischemia, pulses intact, pulses symmetrical Extremity abnormal: edema - Peripheral Assessment Generalized Edema Type: Non-pitting Edema Degree: 2+ Capillary Refill: < 3 seconds Skin Temperature: Warm Peripheral Pulses: within normal limits - Abdominal General gastrointestinal: soft, non-distended, normal bowel sounds - Integumentary Integumentary: Present: clear, warm, dry - Psychiatric Psychiatric: appropriate mood/affect, cooperative - Neurologic Neurologic: CNII-XII intact, moves all extremities - Allied Health Allied health notes reviewed: nursing, case management - Constitutional Vitals: Temp Pulse Resp BP Pulse Ox 97.6 F 72 17 136/51 98 02/22/22 08:00 02/22/22 10:00 02/22/22 10:00 02/22/22 10:00 02/22/22 10:00 General appearance: Present: no acute distress, well-nourished, obese Results - Labs CBC & Chem 7: 02/22/22 03:30 02/22/22 03:30 Labs: Laboratory Last Values WBC 11.7 K/mm3 (4.5-11.0) H 02/22/22 03:30 RBC 5.16 M/mm3 (3.65-5.03) H 02/22/22 03:30 Hgb 11.4 gm/dl (11.8-15.2) L 02/22/22 03:30 Hct 37.5 % (35.5-45.6) 02/22/22 03:30 MCV 73 fl (84-94) L 02/22/22 03:30 MCH 22 pg (28-32) L 02/22/22 03:30 MCHC 31 % (32-34) L 02/22/22 03:30 RDW 18.5 % (13.2-15.2) H 02/22/22 03:30 Plt Count 229 K/mm3 (140-440) 02/22/22 03:30 Lymph % (Auto) 27.4 % (13.4-35.0) 02/21/22 09:50 Winn % (Auto) 7.3 % (0.0-7.3) 02/21/22 09:50 Eos % (Auto) 0.1 % (0.0-4.3) 02/21/22 09:50 Baso % (Auto) 0.2 % (0.0-1.8) 02/21/22 09:50 Lymph # (Auto) 3.6 K/mm3 (1.2-5.4) 02/21/22 09:50 Winn # (Auto) 1.0 K/mm3 (0.0-0.8) H 02/21/22 09:50 Eos # (Auto) 0.0 K/mm3 (0.0-0.4) 02/21/22 09:50 Baso # (Auto) 0.0 K/mm3 (0.0-0.1) 02/21/22 09:50 Seg Neutrophils % 65.0 % (40.0-70.0) 02/21/22 09:50 Seg Neutrophils # 8.5 K/mm3 (1.8-7.7) H 02/21/22 09:50 Fibrinogen 100 mg/dl (211-480) L* 02/21/22 09:50 ABG pH 7.333 pH Units (7.350-7.450) L 02/08/22 09:20 ABG pCO2 48.2 mm Hg 02/08/22 09:20 ABG pO2 114.7 mm Hg (80.0-90.0) H 02/08/22 09:20 ABG HCO3 25.0 mmol/L (20.0-26.0) 02/08/22 09:20 ABG O2 Saturation 97.9 % (95.0-99.0) 02/08/22 09:20 ABG O2 Content 15.1 (0.0-44) 02/08/22 09:20 ABG Base Excess -1.1 mmol/L (-2.0-3.0) 02/08/22 09:20 ABG Hemoglobin 11.1 gm/dl (14.0-18.0) L 02/08/22 09:20 ABG Carboxyhemoglobin 1.4 % (0.0-5.0) 02/08/22 09:20 ABG Methemoglobin 0.5 % (0.0-1.5) 02/08/22 09:20 Oxyhemoglobin 96.1 % (95.0-99.0) 02/08/22 09:20 FiO2 35 % 02/08/22 09:20 Sodium 139 mmol/L (137-145) 02/22/22 03:30 Potassium 4.7 mmol/L (3.6-5.0) D 02/22/22 03:30 Chloride 104.0 mmol/L (98-107) 02/22/22 03:30 Carbon Dioxide 27 mmol/L (22-30) 02/22/22 03:30 Anion Gap 13 mmol/L 02/22/22 03:30 BUN 9 mg/dL (9-20) 02/22/22 03:30 Creatinine 0.5 mg/dL (0.8-1.3) L 02/22/22 03:30 Estimated GFR > 60 ml/min 02/22/22 03:30 BUN/Creatinine Ratio 18 % 02/22/22 03:30 Glucose 99 mg/dL (75-100) 02/22/22 03:30 Calcium 9.3 mg/dL (8.4-10.2) 02/22/22 03:30 Total Bilirubin 0.30 mg/dL (0.1-1.2) 02/22/22 03:30 AST 14 units/L (5-40) 02/22/22 03:30 ALT 23 units/L (7-56) 02/22/22 03:30 Alkaline Phosphatase 38 units/L (35-129) 02/22/22 03:30 Total Protein 5.8 g/dL (6.3-8.2) L 02/22/22 03:30 Albumin 4.6 g/dL (3.9-5) 02/22/22 03:30 Albumin/Globulin Ratio 3.8 % 02/22/22 03:30 Actin IgG Antibody <20 U (<20) 02/16/22 04:52 Blood Type O POSITIVE 02/20/22 19:20 Antibody Screen Negative 02/20/22 19:20 [place]/IV: Voiding Method Urinal Active Medications - Current Medications Current Medications: Generic Name Dose Route Start Last Admin Trade Name Freq PRN Reason Stop Dose Admin Acetaminophen 650 mg 02/06/22 15:00 02/22/22 08:12 Acetaminophen 325 Mg Tab PO 650 mg Q6H PRN Administration Pain MILD(1-3)/Fever >100.5/WEINBERG Albumin Human 200 gm 02/16/22 13:00 02/20/22 16:55 Albumin Human 5% (25 Gm/500 Ml) Inj IV 02/24/22 13:01 200 gm Q48H NESTOR Administration Albuterol 2.5 mg 02/06/22 15:00 02/15/22 21:54 Albuterol 2.5 Mg/3 Ml Nebu IH 2.5 mg Q3HRT PRN Administration Shortness Of Breath Diphenhydramine HCl 25 mg 02/15/22 14:06 02/16/22 11:49 Diphenhydramine 50 Mg/Ml Vial IV 25 mg Q6H PRN Administration Itching Enoxaparin Sodium 40 mg 02/06/22 22:00 02/21/22 21:07 Enoxaparin 40 Mg/0.4 Ml Inj SUB-Q 40 mg QDAY@2200 NESTOR Administration Protocol Famotidine 20 mg 02/12/22 10:00 02/22/22 09:25 Famotidine 20 Mg Tab PO 20 mg BID NESTOR Administration Hydrophilic Ointment 1 applic 02/07/22 10:55 Lip Therapy Vaseline TP Q2HR PRN Dry Lips Melatonin 5 mg 02/21/22 01:15 02/21/22 01:40 Melatonin 5 Mg Tab PO 5 mg QHS PRN Administration Sleep Multi-Ingred Cream/Lotion/Oil/Oint 1 applic 02/07/22 10:55 Mineral Oil/Petrolatum, White Ophth Oint 3.5 Gm OU Q4HR PRN Dry Eye(s) Mycophenolate Mofetil 1,000 mg 02/21/22 10:00 02/22/22 09:26 Mycophenolate 500 Mg Tab PO 1,000 mg BID NESTOR Administration Ondansetron HCl 4 mg 02/08/22 17:00 02/20/22 23:58 Ondansetron 4 Mg/2 Ml Inj IV 4 mg Q8H PRN Administration Nausea And Vomiting Oxycodone/Acetaminophen 1 tab 02/06/22 15:00 02/22/22 02:16 Oxycodone /Acetaminophen 5-325mg Tab PO 1 tab Q16H PRN Administration Pain, Moderate (4-6) Prednisone 80 mg 02/15/22 12:00 02/22/22 09:25 Prednisone 20 Mg Tab PO 80 mg QDAY NESTOR Administration Pyridostigmine [place] 180 mg 02/08/22 10:00 02/22/22 09:25 Pyridostigmine [place] 60 Mg Tab PO 180 mg DAILY NESTOR Administration Senna/Docusate Sodium 1 tab 02/12/22 10:00 02/21/22 21:07 Sennosides/Docusate Sodium 8.6/50 Mg Tab PO Not Given BID NESTOR Sodium Chloride 10 ml 02/06/22 22:00 02/22/22 09:27 Sodium Chloride 0.9% 10 Ml Flush Syringe IV 10 ml BID NESTOR Administration Sodium Chloride 10 ml 02/06/22 13:59 Sodium Chloride 0.9% 10 Ml Flush Syringe IV PRN PRN LINE FLUSH Nutrition/Malnutrition Assess - Dietary Evaluation Nutrition/Malnutrition Findings: Nutrition Notes Start: 02/07/22 13:09 Freq: Status: Active Protocol: Document 02/20/22 12:04 PRADEEP (Rec: 02/20/22 12:23 PRADEEP [email or web address]) Nutrition Notes Initial or Follow up Reassessment Current Diagnosis Respiratory Failure Other Pertinent Diagnosis Myasthenia Gravis. Current Diet Regular Diet (since L 02/19). Labs/Tests 02/20: Crea 0.5, Glu 107. Pertinent Medications 02/20: Nutritionally unremarkable. Height 5 ft 10 in Weight 102 kg [place] Body Weight (kg) 75.45 BMI 32.2 Weight change and time frame Body weight on chart (192 Kg) is wrong. Unable to reach RN over the phone at this time. Weight Status Obese Subjective/Other Information RD consult for routine F/U on dietary advancement. Pt advanced to Regular Diet, Pt's PO intake of meals has been Good (100%), according to ADL notes. Pt is on NIV/Bi-PaP+, O2 saturation @ 100%, according top Physical Assessment History notes. [employer] note on 02/15/22 14:34: Swallowing function was reassessed. Patient's swallowing function has declined since he was discharged from this service. Laryngeal elevation is reduced with slower oral transit time and aspiration with thins and semi solids. Recommend a pureed diet with nectar thickened liquids. Will continue to follow. Informed his nurse of findings. - END OF NOTE. Percent of energy/protein needs met: Prescribed Regular Diet provides for energy/protein needs (2,289 Kcal/89 g) during LOS. Burn Absent Trauma Absent GI Symptoms None Food Allergy No Skin Integrity/Comment Assessment WNL. 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 Diagnosis Progress(for reassessment Resolved documentation) Is patient on ventilator? No Is Patient Ambulatory and/or Out of Bed No REE-([place]-confined to bed) 2349.732 Kcal/Kg value to use for calculation 20 Approximate Energy Requirements Using 2040 kcal/Kg Calculation Used for Recommendations Kcal/kg Additional Notes Protein: 0.8-1 g/Kg AdjBW; 71- 89 g/day. Fluids: 1 ml/Kcal, or as per MD. Nutrition Intervention Change Diet Order: Contrinue Regular Diet. Goal #1 Adjust the dietary intervention to better serve Pt's needs and clinical conditions during LOS. Follow-Up By: 02/27/22 Additional Comments Continue monitoring food tolerance, %PO intake of meals , and BM.
[2022-02-22] MEDS: SENNOSIDES/DOCUSATE SODIUM 8.6/50 MG TAB PO SCH ×2 (11:23→21:12)
[2022-02-22] MEDS: CALCIUM GLUCONATE 1,000 MG/NS 100 ML PREMIX IV SCH (12:17)
[2022-02-22] MEDS: ALBUMIN HUMAN 5% (25 GM/500 ML) INJ IV SCH (13:24)
--- NOTE | 2022-02-22 13:42 | Progress Note ---
Assessment and Plan 36 YO Male with MG currently taking Cellcept, Mycophenolate, and Prednisone presents ED for evaluation. Patient states that he had experienced generalized weakness over the past 1 day with progressive and worsening symptoms over the same timeframe. Patient states that he was able to walk earlier today but he is unable to walk. Patient also acknowledges upper extremity weakness as well as difficulty speaking. EMS was notified and upon arrival the patient was found to be in distress and subsequently transported to [facility] for further care and evaluation of the aforementioned symptoms. The patient was seen and evaluated in the emergency department. All lab and imaging studies reviewed. Patient found to have myasthenia gravis crisis with increased risk for worsening symptoms as well as development of acute hypoxemic respiratory failure. Patient placed on noninvasive positive pressure ventilation in the emergency department and admitted to ICU. IVIG ordered in the emergency department. Patient denies fever, chills, chest pain, palpitation productive cough, skin rash and recent Contact, known exposure to COVID-19. Patient eventually intubated and placed on mechanical ventilation. Patient extubated now. Patient has history vaping 2 times a day x 14 years. Stopped vaping 3 years ago. Denies alcohol abuse. Used Marijuna in his teenage years. Not used Marijuana for long time. 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 Has no children. No known drug allergies. Patient has history of Sleep apnea. Uses CPAP 12 cm H2O during night time. Patient Obese, awake, resting on room air. O2 saturation 97%. No acute respiratory distress at rest. Currently undergoing plasmapheresis. Patient running a low grade temp. No leukocytosis, Blood pressure 138/61, rate 73 respirations 18. Chest xray 02/10/22 Previous density of the left has almost completely cleared with only minimal basilar atelectasis remaining. Right lung field clear. No pneumothorax. CT scan of chest 02/08/[address] evidence of thymoma. Hypoattenuating lesions of the liver statistically reflect hepatic hemangiomas. One of these lesions demonstrate characteristic peripheral puddling of contrast, the second does not clearly demonstrate specific pattern of enhancement. Ultrasound targeting these lesions may be useful for further characterization and confirmation of hemangioma. Moderate subsegmental atelectasis of the bilateral lungs. Satisfactory positioning of endotracheal tube and esophagogastric tube. Chest xray done 02/17/22 reported No significant pulmonary or pleural abnormality. No pneumothorax. Left rib series done on 02/18/22 reported he left ribs appear unremarkable. There is no visible left rib fracture. No acute pulmonary disease.. Patient is on Po Prednisone, Albuterolinhaler, S/C Lovenox and famotidine. I spent critical care time of 35 minutes in obtaining history, review the chart, Examining the patient, review xrays, lab results, talking to the nursing staff , respiratory therapy and work up plan of treatment. - Patient Problems (1) Acute hypoxemic respiratory failure Current Visit: Yes Status: Acute Plan to address problem: CPAP during night time. Continue prednisone. Continue S/C Lovenox. Continue famotidine. Albuterol inhaler prn for shortness of breath. (2) Obesity Current Visit: Yes Status: Acute Qualifiers: Body mass index: BMI 33.0-33.9 Plan to address problem: Counseled to loose weight Exercise and diet. (3) Sleep apnea Current Visit: Yes Status: Acute Plan to address problem: Patient says he has history of sleep apnea. No sleep study results available at this time. Continue CPAP as she is using at home. Recommend to loose weight. Explained sleep hygiene. Recommend not to drive or operate heavy equipment with sleepiness. Avoid alcohol, sedatives and Narcotics If sleep study is while back, recommend to repeat sleep study as out patient. (4) Myasthenia gravis Current Visit: Yes Status: Acute Plan to address problem: Management as per primary care and neurology. patient is receiving plasmapheresis. Subjective Date of service: 02/22/22 Principal diagnosis: Myasthenic crisis; Obesity; Possible ANTON/OHS; Blurry vision; Hypokalemia Interval history: 36 YO Male with MG currently taking Cellcept, Mycophenolate, and Prednisone presents ED for evaluation. Patient states that he had experienced generalized weakness over the past 1 day with progressive and worsening symptoms over the same timeframe. Patient states that he was able to walk earlier today but he is unable to walk. Patient also acknowledges upper extremity weakness as well as difficulty speaking. EMS was notified and upon arrival the patient was found to be in distress and subsequently transported to [facility] for further care and evaluation of the aforementioned symptoms. The patient was seen and evaluated in the emergency department. All lab and imaging studies reviewed. Patient found to have myasthenia gravis crisis with increased risk for worsening symptoms as well as development of acute hypoxemic respiratory failure. Patient placed on noninvasive positive pressure ventilation in the emergency department and admitted to ICU. IVIG ordered in the emergency department. Patient denies fever, chills, chest pain, palpitation productive cough, skin rash and recent Contact, known exposure to COVID-19. Patient eventually intubated and placed on mechanical ventilation. Patient extubated now. Patient has history vaping 2 times a day x 14 years. Stopped vaping 3 years ago. Denies alcohol abuse. Used Marijuna in his teenage years. Not used Marijuana for long time. 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 Has no children. No known drug allergies. Patient has history of Sleep apnea. Uses CPAP 12 cm H2O during night time. Patient Obese, awake, resting on room air. O2 saturation 97%. No acute respiratory distress at rest. Currently undergoing plasmapheresis. Patient running a low grade temp. No leukocytosis, Blood pressure 138/61, rate 73 respirations 18. Chest xray 02/10/22 Previous density of the left has almost completely cleared with only minimal basilar atelectasis remaining. Right lung field clear. No pneumothorax. CT scan of chest 02/08/[address] evidence of thymoma. Hypoattenuating lesions of the liver statistically reflect hepatic hemangiomas. One of these lesions demonstrate characteristic peripheral puddling of contrast, the second does not clearly demonstrate specific pattern of enhancement. Ultrasound targeting these lesions may be useful for further characterization and confirmation of hemangioma. Moderate subsegmental atelectasis of the bilateral lungs. Satisfactory positioning of endotracheal tube and esophagogastric tube. Chest xray done 02/17/22 reported No significant pulmonary or pleural abnormality. No pneumothorax. Left rib series done on 02/18/22 reported he left ribs appear unremarkable. There is no visible left rib fracture. No acute pulmonary disease. Patient is on Po Prednisone, Albuterol inhaler, S/C Lovenox and famotidine. Objective Vital Signs - 12hr 02/22/22 02/22/22 02/22/22 02:01 03:00 03:12 Temperature Pulse Rate 47 L 51 L 47 L Respiratory 15 14 Rate Blood Pressure 116/47 140/61 O2 Sat by Pulse 100 93 99 Oximetry 02/22/22 02/22/22 02/22/22 03:45 04:01 04:14 Temperature 98 F Pulse Rate 56 L 47 L Respiratory 13 18 Rate Blood Pressure 148/70 140/61 O2 Sat by Pulse 88 99 Oximetry 02/22/22 02/22/22 02/22/22 05:01 06:00 07:01 Temperature Pulse Rate 60 49 L 47 L Respiratory 15 14 15 Rate Blood Pressure 126/69 138/66 125/46 O2 Sat by Pulse 99 100 100 Oximetry 02/22/22 02/22/22 02/22/22 08:00 08:12 09:01 Temperature 97.6 F Pulse Rate 46 L 80 Respiratory 13 19 19 Rate Blood Pressure 127/54 128/56 O2 Sat by Pulse 100 100 Oximetry 02/22/22 02/22/22 02/22/22 09:38 10:00 11:00 Temperature Pulse Rate 72 75 Respiratory 17 12 Rate Blood Pressure 136/51 148/74 O2 Sat by Pulse 99 98 99 Oximetry 02/22/22 12:00 Temperature Pulse Rate 73 Respiratory Rate Blood Pressure O2 Sat by Pulse Oximetry Constitutional: no acute distress, alert, other (young obese male without increased respiratory effort at rest) Eyes: non-icteric ENT: oropharynx moist Neck: supple, no lymphadenopathy, no JVD, other (large circumference) Effort: normal Ascultation: Bilateral: diminished breath sounds Percussion: Bilateral: not dull Cardiovascular: regular rate and rhythm Gastrointestinal: normoactive bowel sounds, soft, non-tender, non-distended (protuberant) Integumentary: normal Extremities: no cyanosis, no edema, pulses normal, no ischemia or petechiae Neurologic: non-focal exam (grossly), pupils equal and round, CN II-XII normal, other (weak (3-4/5)) Psychiatric: mood appropriate, affect normal CBC and BMP: 02/23/22 04:08 02/23/22 04:08 ABG, PT/INR, D-dimer: ABG ABG pH 7.333 pH Units (7.350-7.450) L 02/08/22 09:20 ABG pCO2 48.2 mm Hg 02/08/22 09:20 ABG pO2 114.7 mm Hg (80.0-90.0) H 02/08/22 09:20 ABG O2 Saturation 97.9 % (95.0-99.0) 02/08/22 09:20 Abnormal lab findings: Abnormal Labs 02/06/22 02/06/2202/06/22 12:39 12:39 13:59 WBC RBC 5.75 H Hgb Hct MCV 74 L MCH 23 L MCHC 30 L RDW 16.9 H Lymph % (Auto) 6.4 L [place] % (Auto) Lymph # (Auto) 0.5 L [place] # (Auto) Seg Neutrophils % 89.3 H Seg Neutrophils # Fibrinogen ABG pH ABG pO2 ABG Hemoglobin 12.6 L Oxyhemoglobin Potassium 3.5 L Chloride 109.1 H Carbon Dioxide 20 L Creatinine 0.7 L Glucose 113 H Total Protein Albumin 02/07/22 02/07/22 02/08/22 04:15 12:00 04:23 WBC RBC 5.10 H Hgb 11.5 L 11.0 L Hct MCV 72 L 74 L MCH 23 L 22 L MCHC 30 L RDW 17.3 H 17.1 H Lymph % (Auto) [place] % (Auto) 9.1 H Lymph # (Auto) [place] # (Auto) Seg Neutrophils % Seg Neutrophils # Fibrinogen ABG pH ABG pO2 72.6 L ABG Hemoglobin 12.2 L Oxyhemoglobin 94.4 L Potassium Chloride Carbon Dioxide Creatinine Glucose Total Protein Albumin 02/08/22 02/08/22 02/09/22 04:23 09:20 04:50 WBC RBC Hgb 10.4 L Hct 33.7 L MCV 73 L MCH 22 L MCHC 31 L RDW 17.5 H Lymph % (Auto) [place] % (Auto) Lymph # (Auto) [place] # (Auto) Seg Neutrophils % Seg Neutrophils # Fibrinogen ABG pH 7.333 L ABG pO2 114.7 H ABG Hemoglobin 11.1 L Oxyhemoglobin Potassium Chloride 109.3 H Carbon Dioxide Creatinine 0.6 L Glucose Total Protein Albumin 02/09/22 02/10/22 02/11/22 04:50 04:50 04:38 WBC 4.4 L 3.3 L RBC Hgb 10.1 L 10.4 L Hct 32.9 L 33.6 L MCV 73 L 73 L MCH 22 L 23 L MCHC 31 L 31 L RDW 17.2 H 17.0 H Lymph % (Auto) [place] % (Auto) Lymph # (Auto) [place] # (Auto) Seg Neutrophils % Seg Neutrophils # Fibrinogen ABG pH ABG pO2 ABG Hemoglobin Oxyhemoglobin Potassium Chloride Carbon Dioxide Creatinine Glucose 107 H Total Protein Albumin 02/11/22 02/12/22 02/13/22 04:38 04:25 04:17 WBC 3.7 L 3.5 L RBC Hgb 10.5 L 10.8 L Hct 34.5 L MCV 73 L 73 L MCH 22 L 22 L MCHC 30 L 30 L RDW 16.9 H 17.5 H Lymph % (Auto) [place] % (Auto) Lymph # (Auto) [place] # (Auto) Seg Neutrophils % Seg Neutrophils # Fibrinogen ABG pH ABG pO2 ABG Hemoglobin Oxyhemoglobin Potassium Chloride Carbon Dioxide Creatinine 0.7 L Glucose 101 H Total Protein Albumin 02/16/22 02/16/22 02/18/22 04:52 04:52 07:18 WBC RBC Hgb 11.4 L 11.4 L Hct 35.3 L MCV 71 L 72 L MCH 23 L 23 L MCHC RDW 17.4 H 17.3 H Lymph % (Auto) 43.5 H [place] % (Auto) 7.6 H 7.6 H Lymph # (Auto) [place] # (Auto) Seg Neutrophils % 71.5 H Seg Neutrophils # Fibrinogen ABG pH ABG pO2 ABG Hemoglobin Oxyhemoglobin Potassium Chloride Carbon Dioxide Creatinine 0.6 L Glucose Total Protein Albumin 3.5 L 02/18/22 02/18/22 02/20/22 07:18 07:18 04:23 WBC RBC 5.22 H Hgb 11.6 L Hct MCV 73 L MCH 22 L MCHC 31 L RDW 18.0 H Lymph % (Auto) [place] % (Auto) Lymph # (Auto) [place] # (Auto) Seg Neutrophils % Seg Neutrophils # Fibrinogen 144 L* ABG pH ABG pO2 ABG Hemoglobin Oxyhemoglobin Potassium Chloride Carbon Dioxide Creatinine 0.5 L Glucose Total Protein Albumin 02/20/22 02/20/22 02/21/22 04:23 04:23 09:50 WBC 13.1 H RBC 5.36 H Hgb Hct MCV 73 L MCH 22 L MCHC 31 L RDW 18.4 H Lymph % (Auto) [place] % (Auto) Lymph # (Auto) [place] # (Auto) 1.0 H Seg Neutrophils % Seg Neutrophils # 8.5 H Fibrinogen 89 L* ABG pH ABG pO2 ABG Hemoglobin Oxyhemoglobin Potassium Chloride Carbon Dioxide Creatinine 0.5 L Glucose 107 H Total Protein Albumin 02/21/22 02/21/22 02/22/22 09:50 09:50 03:30 WBC 11.7 H RBC 5.16 H Hgb 11.4 L Hct MCV 73 L MCH 22 L MCHC 31 L RDW 18.5 H Lymph % (Auto) [place] % (Auto) Lymph # (Auto) [place] # (Auto) Seg Neutrophils % Seg Neutrophils # Fibrinogen 100 L* ABG pH ABG pO2 ABG Hemoglobin Oxyhemoglobin Potassium Chloride Carbon Dioxide Creatinine 0.7 L Glucose Total Protein Albumin 02/22/22 02/22/22 03:30 10:11 WBC RBC Hgb Hct MCV MCH MCHC RDW Lymph % (Auto) [place] % (Auto) Lymph # (Auto) [place] # (Auto) Seg Neutrophils % Seg Neutrophils # Fibrinogen 114 L* ABG pH ABG pO2 ABG Hemoglobin Oxyhemoglobin Potassium Chloride Carbon Dioxide Creatinine 0.5 L Glucose Total Protein 5.8 L Albumin Allied health notes reviewed: RT
--- NOTE | 2022-02-22 15:42 | Progress Note ---
Assessment and Plan 36 yo male with myasthenia gravis who presented initially in myasthenic crisis with some response to ivig but with dramatic improvement with plasma exchange. 1. Myasthenia Gravis Exacerbation - change mestinon from 180 mg po qday to 60 mg po tid; prednisone from 80 mg po qday to 40 mg po qday; continue cellcept (per home regimen); plex 4/5 ongoing at bedside today; pt/ot/st evaluation/monitoring; f/u established neurologist within 2 weeks post- discharge. 2. Generalized Weakness - mild degree of weakness; pt/ot. 3. ANTON / Obesity - continue cpap; consider nutrition consult for weight loss instructions. 4. No further acute neurologic intervention indicated at present. Neurology will signoff. Javi Corado MD Neurology [id number] Subjective Date of service: 02/22/22 Principal diagnosis: Myasthenic crisis; Obesity; Possible ANTON/OHS; Blurry vision; Hypokalemia Interval history: Patient notes significant improvement since ivig was started except notes transient binocular diplopia at night at times. Notes that this flare was triggered by the heat. Notes he takes mestinon 60 mg po tid and prednisone 40 mg po qday at home, along with the cellcept. Notes his neurologist is in [place], [place]. Objective - Exam Narrative Exam: Gen: nad, well-nourished; Head: normocephalic; Eyes: no gaze deviation; no ptosis; ENT: normal vocalization; CVS: warm and well-perfused; Pulm: no respiratory distress; GI: appears non-distended; Ext: no cyanosis appreciated at distal extremities; Skin: no acute rash at distal extremities; Heme: no pathologic ecchymosis appreciated at distal extremities; Neuro: alert, oriented to name, age, month, year, surroundings, no dysarthria, no aphasia, CN 2 - PERRL, visual resendiz grossly intact, CN 3, 4, 6 - EOMI, CN 5 - facial sensation symmetric to light touch, CN 7 - facial movement symmetric, CN 8 - hearing grossly intact, CN 9, 10 - uvula midline, CN 11 symmetric shoulder movement, CN 12 - tongue midline; Motor - at least 4/5 at all exts; minimal fatigability; Sensory - light touch symmetric, Cerebellar - fnf /hts intact, Gait - deferred secondary to fall risk; - Vital Sign Vital Signs - 12hr 02/22/22 02/22/22 02/22/22 03:45 04:01 04:14 Temperature 98 F Pulse Rate 56 L 47 L Respiratory 13 18 Rate Blood Pressure 148/70 140/61 O2 Sat by Pulse 88 99 Oximetry 02/22/22 02/22/22 02/22/22 05:01 06:00 07:01 Temperature Pulse Rate 60 49 L 47 L Respiratory 15 14 15 Rate Blood Pressure 126/69 138/66 125/46 O2 Sat by Pulse 99 100 100 Oximetry 02/22/22 02/22/22 02/22/22 08:00 08:12 09:01 Temperature 97.6 F Pulse Rate 46 L 80 Respiratory 13 19 19 Rate Blood Pressure 127/54 128/56 O2 Sat by Pulse 100 100 Oximetry 02/22/22 02/22/22 02/22/22 09:38 10:00 11:00 Temperature Pulse Rate 72 75 Respiratory 17 12 Rate Blood Pressure 136/51 148/74 O2 Sat by Pulse 99 98 99 Oximetry 02/22/22 02/22/22 02/22/22 12:00 13:01 14:00 Temperature 99.1 F Pulse Rate 73 74 65 Respiratory 18 23 24 Rate Blood Pressure 138/61 138/61 138/55 O2 Sat by Pulse 100 97 98 Oximetry 02/22/22 15:00 Temperature Pulse Rate 79 Respiratory 22 Rate Blood Pressure 121/58 O2 Sat by Pulse 100 Oximetry - Laboratory Findings CBC and BMP: 02/22/22 03:30 02/22/22 03:30 Abnormal Lab Findings: Abnormal Labs 02/06/22 02/06/22 02/06/22 12:39 12:39 13:59 WBC RBC 5.75 H Hgb Hct MCV 74 L MCH 23 L MCHC 30 L RDW 16.9 H Lymph % (Auto) 6.4 L [place] % (Auto) Lymph # (Auto) 0.5 L [place] # (Auto) Seg Neutrophils % 89.3 H Seg Neutrophils # Fibrinogen ABG pH ABG pO2 ABG Hemoglobin 12.6 L Oxyhemoglobin Potassium 3.5 L Chloride 109.1 H Carbon Dioxide 20 L Creatinine 0.7 L Glucose 113 H Total Protein Albumin 02/07/22 02/07/22 02/08/22 04:15 12:00 04:23 WBC RBC 5.10 H Hgb 11.5 L 11.0 L Hct MCV 72 L 74 L MCH 23 L 22 L MCHC 30 L RDW 17.3 H 17.1 H Lymph % (Auto) [place] % (Auto) 9.1 H Lymph # (Auto) [place] # (Auto) Seg Neutrophils % Seg Neutrophils # Fibrinogen ABG pH ABG pO2 72.6 L ABG Hemoglobin 12.2 L Oxyhemoglobin 94.4 L Potassium Chloride Carbon Dioxide Creatinine Glucose Total Protein Albumin 02/08/22 02/08/22 02/09/22 04:23 09:20 04:50 WBC RBC Hgb 10.4 L Hct 33.7 L MCV 73 L MCH 22 L MCHC 31 L RDW 17.5 H Lymph % (Auto) [place] % (Auto) Lymph # (Auto) [place] # (Auto) Seg Neutrophils % Seg Neutrophils # Fibrinogen ABG pH 7.333 L ABG pO2 114.7 H ABG Hemoglobin 11.1 L Oxyhemoglobin Potassium Chloride 109.3 H Carbon Dioxide Creatinine 0.6 L Glucose Total Protein Albumin 02/09/22 02/10/22 02/11/22 04:50 04:50 04:38 WBC 4.4 L 3.3 L RBC Hgb 10.1 L 10.4 L Hct 32.9 L 33.6 L MCV 73 L 73 L MCH 22 L 23 L MCHC 31 L 31 L RDW 17.2 H 17.0 H Lymph % (Auto) [place] % (Auto) Lymph # (Auto) [place] # (Auto) Seg Neutrophils % Seg Neutrophils # Fibrinogen ABG pH ABG pO2 ABG Hemoglobin Oxyhemoglobin Potassium Chloride Carbon Dioxide Creatinine Glucose 107 H Total Protein Albumin 02/11/22 02/12/22 02/13/22 04:38 04:25 04:17 WBC 3.7 L 3.5 L RBC Hgb 10.5 L 10.8 L Hct 34.5 L MCV 73 L 73 L MCH 22 L 22 L MCHC 30 L 30 L RDW 16.9 H 17.5 H Lymph % (Auto) [place] % (Auto) Lymph # (Auto) [place] # (Auto) Seg Neutrophils % Seg Neutrophils # Fibrinogen ABG pH ABG pO2 ABG Hemoglobin Oxyhemoglobin Potassium Chloride Carbon Dioxide Creatinine 0.7 L Glucose 101 H Total Protein Albumin 02/16/22 02/16/22 02/18/22 04:52 04:52 07:18 WBC RBC Hgb 11.4 L 11.4 L Hct 35.3 L MCV 71 L 72 L MCH 23 L 23 L MCHC RDW 17.4 H 17.3 H Lymph % (Auto) 43.5 H [place] % (Auto) 7.6 H 7.6 H Lymph # (Auto) [place] # (Auto) Seg Neutrophils % 71.5 H Seg Neutrophils # Fibrinogen ABG pH ABG pO2 ABG Hemoglobin Oxyhemoglobin Potassium Chloride Carbon Dioxide Creatinine 0.6 L Glucose Total Protein Albumin 3.5 L 02/18/22 02/18/22 02/20/22 07:18 07:18 04:23 WBC RBC 5.22 H Hgb 11.6 L Hct MCV 73 L MCH 22 L MCHC 31 L RDW 18.0 H Lymph % (Auto) [place] % (Auto) Lymph # (Auto) [place] # (Auto) Seg Neutrophils % Seg Neutrophils # Fibrinogen 144 L* ABG pH ABG pO2 ABG Hemoglobin Oxyhemoglobin Potassium Chloride Carbon Dioxide Creatinine 0.5 L Glucose Total Protein Albumin 02/20/22 02/20/22 02/21/22 04:23 04:23 09:50 WBC 13.1 H RBC 5.36 H Hgb Hct MCV 73 L MCH 22 L MCHC 31 L RDW 18.4 H Lymph % (Auto) [place] % (Auto) Lymph # (Auto) [place] # (Auto) 1.0 H Seg Neutrophils % Seg Neutrophils # 8.5 H Fibrinogen 89 L* ABG pH ABG pO2 ABG Hemoglobin Oxyhemoglobin Potassium Chloride Carbon Dioxide Creatinine 0.5 L Glucose 107 H Total Protein Albumin 02/21/22 02/21/22 02/22/22 09:50 09:50 03:30 WBC 11.7 H RBC 5.16 H Hgb 11.4 L Hct MCV 73 L MCH 22 L MCHC 31 L RDW 18.5 H Lymph % (Auto) [place] % (Auto) Lymph # (Auto) [place] # (Auto) Seg Neutrophils % Seg Neutrophils # Fibrinogen 100 L* ABG pH ABG pO2 ABG Hemoglobin Oxyhemoglobin Potassium Chloride Carbon Dioxide Creatinine 0.7 L Glucose Total Protein Albumin 02/22/22 02/22/22 03:30 10:11 WBC RBC Hgb Hct MCV MCH MCHC RDW Lymph % (Auto) [place] % (Auto) Lymph # (Auto) [place] # (Auto) Seg Neutrophils % Seg Neutrophils # Fibrinogen 114 L* ABG pH ABG pO2 ABG Hemoglobin Oxyhemoglobin Potassium Chloride Carbon Dioxide Creatinine 0.5 L Glucose Total Protein 5.8 L Albumin
[2022-02-22] MEDS: ENOXAPARIN 40 MG/0.4 ML INJ SUB-Q SCH (21:12)
[2022-02-22] MEDS ORDERED: PYRIDOSTIGMINE BROMIDE 60 MG TAB PO SCH (22:00)
[2022-02-23 04:54] LABS: Hematocrit 33.9 % (35.5-45.6); Hemoglobin 10.5 gm/dl (11.8-15.2); Mean Corpuscular HGB Conc 31 % (32-34); Mean Corpuscular Volume 72 fl (84-94); Platelet Count 223 K/mm3 (140-440); Red Blood Count 4.68 M/mm3 (3.65-5.03); Red Cell Distribution Width 19.3 % (13.2-15.2)
[2022-02-23 05:11] LABS: Alanine Aminotransferase 11 units/L (7-56); Albumin 4.8 g/dL (3.9-5); Blood Urea Nitrogen 9 mg/dL (9-20); Calcium 8.7 mg/dL (8.4-10.2); Hemolysis Index 4
[2022-02-23 05:13] LABS: BUN/Creatinine Ratio 18
[2022-02-23] MEDS: FAMOTIDINE 20 MG TAB PO SCH ×2 (09:49→21:26)
[2022-02-23] MEDS: predniSONE 20 MG TAB PO SCH (09:49)
[2022-02-23] MEDS: MYCOPHENOLATE 500 MG TAB PO SCH ×2 (09:49→21:26)
[2022-02-23] MEDS: oxyCODONE /ACETAMINOPHEN 5-325MG TAB PO PRN ×2 (09:49→20:09)
[2022-02-23] MEDS: PYRIDOSTIGMINE BROMIDE 60 MG TAB PO SCH ×3 (09:50→20:09)
[2022-02-23] MEDS ORDERED: predniSONE 20 MG TAB PO SCH (10:00)
[2022-02-23] MEDS: SENNOSIDES/DOCUSATE SODIUM 8.6/50 MG TAB PO SCH ×2 (10:11→21:26)
--- NOTE | 2022-02-23 13:33 | Progress Note ---
Assessment and Plan 36 YO Male with MG currently taking Cellcept, Mycophenolate, and Prednisone presents ED for evaluation. Patient states that he had experienced generalized weakness over the past 1 day with progressive and worsening symptoms over the same timeframe. Patient states that he was able to walk earlier today but he is unable to walk. Patient also acknowledges upper extremity weakness as well as difficulty speaking. EMS was notified and upon arrival the patient was found to be in distress and subsequently transported to [facility] for further care and evaluation of the aforementioned symptoms. The patient was seen and evaluated in the emergency department. All lab and imaging studies reviewed. Patient found to have myasthenia gravis crisis with increased risk for worsening symptoms as well as development of acute hypoxemic respiratory failure. Patient placed on noninvasive positive pressure ventilation in the emergency department and admitted to ICU. IVIG ordered in the emergency department. Patient denies fever, chills, chest pain, palpitation productive cough, skin rash and recent Contact, known exposure to COVID-19. Patient eventually intubated and placed on mechanical ventilation. Patient extubated now. Patient has history vaping 2 times a day x 14 years. Stopped vaping 3 years ago. Denies alcohol abuse. Used Marijuna in his teenage years. Not used Marijuana for long time. 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 Not . Has no children. No known drug allergies. Patient has history of Sleep apnea. Uses CPAP 12 cm H2O during night time. atient Obese, awake, Sitting up in chair.Resting on room air. O2 saturation 98%. No acute respiratory distress at rest. Receved plamaPheresis yesterday. Patient afebrile. Mild leukocytosis, Blood pressure 125/59, rate 75 respirations 14. Chest xray 02/10/22 Previous density of the left has almost completely cleared with only minimal basilar atelectasis remaining. Right lung field clear. No pneumothorax. CT scan of chest 02/08/[address] evidence of thymoma. Hypoattenuating lesions of the liver statistically reflect hepatic hemangiomas. One of these lesions demonstrate characteristic peripheral puddling of contrast, the second does not clearly demonstrate specific pattern of enhancement. Ultrasound targeting these lesions may be useful for further characterization and confirmation of hemangioma. Moderate subsegmental atelectasis of the bilateral lungs. Satisfactory positioning of endotracheal tube and esophagogastric tube. Chest xray done 02/17/22 reported No significant pulmonary or pleural abnormality. No pneumothorax. Left rib series done on 02/18/22 reported he left ribs appear unremarkable. There is no visible left rib fracture. No acute pulmonary disease.. Patient is on Po Prednisone, Albuterolinhaler, S/C Lovenox and famotidine. I spent critical care time of 35 minutes in obtaining history, review the chart, Examining the patient, review xrays, lab results, talking to the nursing staff , respiratory therapy and work up plan of treatment. - Patient Problems (1) Acute hypoxemic respiratory failure Current Visit: Yes Status: Acute Plan to address problem: CPAP during night time. Continue prednisone. Continue S/C Lovenox. Continue famotidine. Albuterol inhaler prn for shortness of breath. (2) Obesity Current Visit: Yes Status: Acute Qualifiers: Body mass index: BMI 33.0-33.9 Plan to address problem: Counseled to loose weight Exercise and diet. (3) Sleep apnea Current Visit: Yes Status: Acute Plan to address problem: Patient says he has history of sleep apnea. No sleep study results available at this time. Continue CPAP as she is using at home. Recommend to loose weight. Explained sleep hygiene. Recommend not to drive or operate heavy equipment with sleepiness. Avoid alcohol, sedatives and Narcotics If sleep study is while back, recommend to repeat sleep study as out patient. (4) Myasthenia gravis Current Visit: Yes Status: Acute Plan to address problem: Management as per primary care and neurology. Subjective Date of service: 02/23/22 Principal diagnosis: Myasthenic crisis; Obesity; Possible ANTON/OHS; Blurry vision; Hypokalemia Interval history: 36 YO Male with MG currently taking Cellcept, Mycophenolate, and Prednisone presents ED for evaluation. Patient states that he had experienced generalized weakness over the past 1 day with progressive and worsening symptoms over the same timeframe. Patient states that he was able to walk earlier today but he is unable to walk. Patient also acknowledges upper extremity weakness as well as difficulty speaking. EMS was notified and upon arrival the patient was found to be in distress and subsequently transported to [facility] for further care and evaluation of the aforementioned symptoms. The patient was seen and evaluated in the emergency department. All lab and imaging studies reviewed. Patient found to have myasthenia gravis crisis with increased risk for worsening symptoms as well as development of acute hypoxemic respiratory failure. Patient placed on noninvasive positive pressure ventilation in the emergency department and admitted to ICU. IVIG ordered in the emergency department. Patient denies fever, chills, chest pain, palpitation productive cough, skin rash and recent Contact, known exposure to COVID-19. Patient eventually intubated and placed on mechanical ventilation. Patient extubated now. Patient has history vaping 2 times a day x 14 years. Stopped vaping 3 years ago. Denies alcohol abuse. Used Marijuna in his teenage years. Not used Marijuana for long time. 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 Not . Has no children. No known drug allergies. Patient has history of Sleep apnea. Uses CPAP 12 cm H2O during night time. Patient Obese, awake, Sitting up in chair.Resting on room air. O2 saturation 98%. No acute respiratory distress at rest. Receved plamaPheresis yesterday. Patient afebrile. Mild leukocytosis, Blood pressure 125/59, rate 75 respirations 14. Chest xray 02/10/22 Previous density of the left has almost completely cleared with only minimal basilar atelectasis remaining. Right lung field clear. No pneumothorax. CT scan of chest 02/08/[address] evidence of thymoma. Hypoattenuating lesions of the liver statistically reflect hepatic hemangiomas. One of these lesions demonstrate characteristic peripheral puddling of contrast, the second does not clearly demonstrate specific pattern of enhancement. Ultrasound targeting these lesions may be useful for further characterization and confirmation of hemangioma. Moderate subsegmental atelectasis of the bilateral lungs. Satisfactory positioning of endotracheal tube and esophagogastric tube. Chest xray done 02/17/22 reported No significant pulmonary or pleural abnormality. No pneumothorax. Left rib series done on 02/18/22 reported he left ribs appear unremarkable. There is no visible left rib fracture. No acute pulmonary disease. Patient is on Po Prednisone, Albuterol inhaler, S/C Lovenox and famotidine. Objective Vital Signs - 12hr 02/23/22 02/23/22 02/23/22 02:00 03:00 03:52 Temperature Pulse Rate 46 L 55 L 47 L Respiratory 27 H 22 Rate Blood Pressure 104/64 111/71 O2 Sat by Pulse 99 98 98 Oximetry 02/23/22 02/23/22 02/23/22 04:00 04:01 05:00 Temperature 97.5 F L Pulse Rate 50 L 43 L 48 L Respiratory 17 13 15 Rate Blood Pressure 107/56 113/65 O2 Sat by Pulse 100 100 100 Oximetry 02/23/22 02/23/22 02/23/22 06:01 06:43 07:00 Temperature Pulse Rate 50 L 50 L Respiratory 14 15 Rate Blood Pressure 116/67 119/62 O2 Sat by Pulse 100 100 100 Oximetry 02/23/22 02/23/22 02/23/22 07:14 08:00 08:01 Temperature 97.9 F Pulse Rate 77 76 Respiratory 20 Rate Blood Pressure 105/48 O2 Sat by Pulse 100 Oximetry 02/23/22 02/23/22 02/23/22 09:00 10:01 11:00 Temperature Pulse Rate 63 69 68 Respiratory 17 20 14 Rate Blood Pressure 110/51 105/61 116/59 O2 Sat by Pulse 100 100 98 Oximetry 02/23/22 02/23/22 12:00 13:01 Temperature 97.8 F Pulse Rate 75 92 H Respiratory 22 29 H Rate Blood Pressure 125/66 117/75 O2 Sat by Pulse 99 97 Oximetry Constitutional: no acute distress, alert, other (young obese male without increased respiratory effort at rest) Eyes: non-icteric ENT: oropharynx moist Neck: supple, no lymphadenopathy, no JVD, other (large circumference) Effort: normal Ascultation: Bilateral: diminished breath sounds Percussion: Bilateral: not dull Cardiovascular: regular rate and rhythm Gastrointestinal: normoactive bowel sounds, soft, non-tender, non-distended (protuberant) Integumentary: normal Extremities: no cyanosis, no edema, pulses normal, no ischemia or petechiae Neurologic: non-focal exam (grossly), pupils equal and round, CN II-XII normal, other (weak (3-4/5)) Psychiatric: mood appropriate, affect normal CBC and BMP: 02/23/22 04:08 02/23/22 04:08 ABG, PT/INR, D-dimer: ABG ABG pH 7.333 pH Units (7.350-7.450) L 02/08/22 09:20 ABG pCO2 48.2 mm Hg 02/08/22 09:20 ABG pO2 114.7 mm Hg (80.0-90.0) H 02/08/22 09:20 ABG O2 Saturation 97.9 % (95.0-99.0) 02/08/22 09:20 Abnormal lab findings: Abnormal Labs 02/06/22 02/06/22 02/06/22 12:39 12:39 13:59 WBC RBC 5.75 H Hgb Hct MCV 74 L MCH 23 L MCHC 30 L RDW 16.9 H Lymph % (Auto) 6.4 L [place] % (Auto) Lymph # (Auto) 0.5 L [place] # (Auto) Seg Neutrophils % 89.3 H Seg Neutrophils # Fibrinogen ABG pH ABG pO2 ABG Hemoglobin 12.6 L Oxyhemoglobin Potassium 3.5 L Chloride 109.1 H Carbon Dioxide 20 L Creatinine 0.7 L Glucose 113 H Alkaline Phosphatase Total Protein Albumin 02/07/22 02/07/22 02/08/22 04:15 12:00 04:23 WBC RBC 5.10 H Hgb 11.5 L 11.0 L Hct MCV 72 L 74 L MCH 23 L 22 L MCHC 30 L RDW 17.3 H 17.1 H Lymph % (Auto) [place] % (Auto) 9.1 H Lymph # (Auto) [place] # (Auto) Seg Neutrophils % Seg Neutrophils # Fibrinogen ABG pH ABG pO2 72.6 L ABG Hemoglobin 12.2 L Oxyhemoglobin 94.4 L Potassium Chloride Carbon Dioxide Creatinine Glucose Alkaline Phosphatase Total Protein Albumin 02/08/22 02/08/22 02/09/22 04:23 09:20 04:50 WBC RBC Hgb 10.4 L Hct 33.7 L MCV 73 L MCH 22 L MCHC 31 L RDW 17.5 H Lymph % (Auto) [place] % (Auto) Lymph # (Auto) [place] # (Auto) Seg Neutrophils % Seg Neutrophils # Fibrinogen ABG pH 7.333 L ABG pO2 114.7 H ABG Hemoglobin 11.1 L Oxyhemoglobin Potassium Chloride 109.3 H Carbon Dioxide Creatinine 0.6 L Glucose Alkaline Phosphatase Total Protein Albumin 02/09/22 02/10/22 02/11/22 04:50 04:50 04:38 WBC 4.4 L 3.3 L RBC Hgb 10.1 L 10.4 L Hct 32.9 L 33.6 L MCV 73 L 73 L MCH 22 L 23 L MCHC 31 L 31 L RDW 17.2 H 17.0 H Lymph % (Auto) [place] % (Auto) Lymph # (Auto) [place] # (Auto) Seg Neutrophils % Seg Neutrophils # Fibrinogen ABG pH ABG pO2 ABG Hemoglobin Oxyhemoglobin Potassium Chloride Carbon Dioxide Creatinine Glucose 107 H Alkaline Phosphatase Total Protein Albumin 02/11/22 02/12/22 02/13/22 04:38 04:25 04:17 WBC 3.7 L 3.5 L RBC Hgb 10.5 L 10.8 L Hct 34.5 L MCV 73 L 73 L MCH 22 L 22 L MCHC 30 L 30 L RDW 16.9 H 17.5 H Lymph % (Auto) [place] % (Auto) Lymph # (Auto) [place] # (Auto) Seg Neutrophils % Seg Neutrophils # Fibrinogen ABG pH ABG pO2 ABG Hemoglobin Oxyhemoglobin Potassium Chloride Carbon Dioxide Creatinine 0.7 L Glucose 101 H Alkaline Phosphatase Total Protein Albumin 02/16/22 02/16/22 02/18/22 04:52 04:52 07:18 WBC RBC Hgb 11.4 L 11.4 L Hct 35.3 L MCV 71 L 72 L MCH 23 L 23 L MCHC RDW 17.4 H 17.3 H Lymph % (Auto) 43.5 H [place] % (Auto) 7.6 H 7.6 H Lymph # (Auto) [place] # (Auto) Seg Neutrophils % 71.5 H Seg Neutrophils # Fibrinogen ABG pH ABG pO2 ABG Hemoglobin Oxyhemoglobin Potassium Chloride Carbon Dioxide Creatinine 0.6 L Glucose Alkaline Phosphatase Total Protein Albumin 3.5 L 02/18/22 02/18/22 02/20/22 07:18 07:18 04:23 WBC RBC 5.22 H Hgb 11.6 L Hct MCV 73 L MCH 22 L MCHC 31 L RDW 18.0 H Lymph % (Auto) [place] % (Auto) Lymph # (Auto) [place] # (Auto) Seg Neutrophils % Seg Neutrophils # Fibrinogen 144 L* ABG pH ABG pO2 ABG Hemoglobin Oxyhemoglobin Potassium Chloride Carbon Dioxide Creatinine 0.5 L Glucose Alkaline Phosphatase Total Protein Albumin 02/20/22 02/20/22 02/21/22 04:23 04:23 09:50 WBC 13.1 H RBC 5.36 H Hgb Hct MCV 73 L MCH 22 L MCHC 31 L RDW 18.4 H Lymph % (Auto) [place] % (Auto) Lymph # (Auto) [place] # (Auto) 1.0 H Seg Neutrophils % Seg Neutrophils # 8.5 H Fibrinogen 89 L* ABG pH ABG pO2 ABG Hemoglobin Oxyhemoglobin Potassium Chloride Carbon Dioxide Creatinine 0.5 L Glucose 107 H Alkaline Phosphatase Total Protein Albumin 02/21/22 02/21/22 02/22/22 09:50 09:50 03:30 WBC 11.7 H RBC 5.16 H Hgb 11.4 L Hct MCV 73 L MCH 22 L MCHC 31 L RDW 18.5 H Lymph % (Auto) [place] % (Auto) Lymph # (Auto) [place] # (Auto) Seg Neutrophils % Seg Neutrophils # Fibrinogen 100 L* ABG pH ABG pO2 ABG Hemoglobin Oxyhemoglobin Potassium Chloride Carbon Dioxide Creatinine 0.7 L Glucose Alkaline Phosphatase Total Protein Albumin 02/22/22 02/22/22 02/23/22 03:30 10:11 04:08 WBC 11.4 H RBC Hgb 10.5 L Hct 33.9 L MCV 72 L MCH 22 L MCHC 31 L RDW 19.3 H Lymph % (Auto) [place] % (Auto) Lymph # (Auto) [place] # (Auto) Seg Neutrophils % Seg Neutrophils # Fibrinogen 114 L* ABG pH ABG pO2 ABG Hemoglobin Oxyhemoglobin Potassium Chloride Carbon Dioxide Creatinine 0.5 L Glucose Alkaline Phosphatase Total Protein 5.8 L Albumin 02/23/22 04:08 WBC RBC Hgb Hct MCV MCH MCHC RDW Lymph % (Auto) [place] % (Auto) Lymph # (Auto) [place] # (Auto) Seg Neutrophils % Seg Neutrophils # Fibrinogen ABG pH ABG pO2 ABG Hemoglobin Oxyhemoglobin Potassium Chloride Carbon Dioxide Creatinine 0.5 L Glucose Alkaline Phosphatase 23 L Total Protein 5.2 L Albumin Allied health notes reviewed: RT
--- NOTE | 2022-02-23 13:52 | Progress Note ---
Assessment and Plan Assessment and plan: This is a 36-year-old male with known past medical history of obesity and myasthenia gravis admitted for myasthenia gravis crisis. Hospital Course to Date: 02/07: S/p X1 dose of IV IG overnight, patient reported feeling much better and stronger this am, moving all extremities. Plan to wean off Bipap this am. Okay to start a diet if patient pass bedside swallow. D/W CCM plan for CT chest w con tomorrow to r/o thymoma. Neurology consulted. 02/08: S/p emergent intubation by sherriethehamleta yesterday. Now intubated and sedated, RASS -2. Neurology recommendations noted. Resumed home meds. Will wean off sedation this am for possible SAT/SBT. CT chest also noted with no evidence of thymoma. Continue IVIG. Attending received call back from [facility]. Transfer was declined, no available ICU beds at this time. They recommend continuing IVIG and possible plasma exchange. Awaiting on Neurology final recommendations. 02/09: S/p Extubation this am. Desated to 85% on 3L NC, SPO2 improved to 88% on 8L NC. This am CXR noted, worsen opacity of the left side. CCM at the bedside, X1 dose of IV Lasix ordered and place patient on Bipap. Low Threshold for reintubation. Plan of care and the high probability for reintubation was discussed with patient at the bedside. Patient verbalized understanding and agree with current care plan. Continue IVIG, Awaiting on Neurology final recommendations. 02/10: Tolerated Bipap, now on 2L NC this am, SPO2 at 100%. No s/s of any acute respiratory distress noted. This am CXR also noted with significant improvement. Continue IVIGm and Bipap at night. Incentive Spirometer also ordered. advance diet as tolerated. PT/OT/Speech consulted. 02/11: Completed x5days of IVIG overnight. Stable on RA, still complaining of generalized weakness, other stable. Diet advanced to solid this am, patient is tolerating it. Continue IS and Bipap at night. Encourage mobility as tolerated, PT/OT/Speech consult pending. 02/12: CPAP prn, currently on RA. Improved strength to BLE and BUE per patient. 02/13: Increased weakness reported on encounter. increased steroid dose to prednisone 40 mg po daily. Continue pyridostigmine and cellcept. Possible d/c tomorrow. 02/14: Weakness improved however still continues to have difficulty with strength. Still has right eye lid droop. Patient increased to prednisone 60 mg po daily. He has had 4 myasthenia gravis crises in the past and was initiated on high dose steroids with technician terminal and repeater taper by her OP neurologist. Pt recommended home with home health care PT. Ambulation is challenging as patient requires a rolling walker. 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 Patient is not a resident of [place]. States his home state is [place]. He has a sister in [place] who's address he uses for mailing purposes. Will work with CM to coordinate placement. 02/15: worsened strength. Admits to dysphagia and shortness of breath today. Given worsening symptmology transferring back to ICU for close monitoring. Plasma exchange ordered, first tx tomorrow, coordinated with Dr Katya Manley. Will place vascat today/tomorrow AM for exchanges. Steroid dose increased to Prednisone 80 mg po daily in interim. Will attempt to call neurologist tomorrow AM. 02/16: Plan for plasma exchange today. Labs reviewed, cbc/bmp/fibrinogen all unremarkable. Trialysis catheter placed, pt tolerated procedure well. Taryn Manley will be here today do 4L exchange. A total of 5 exchanges will be completed over 9 days. A total of 20 L 5% albumin will be needed, pharmacy was notified yesterday of this. Continue prednisone 80 mg po daily dose. 02/17: No overnight events. No acute complaints. Tolerated PLEX well. Continue steroids and will follow for symptom improvement. 02/18: Plex tx today. XR ordered due to severe rib pain, no rib fx ID. Will continue to follow for sx improvement. 02/19: Doing much better this am. OOB and sitting up in the chair this am, stable on RA. Still complaining of generalized but reported feeling better. Continue plasma exchange and PO prednisone, cellcept, and Mycophenolate. Continue PT/OT. 02/20: Patient seen and examined, clinically showing some improvement, will continue on current Prednisone Dose, patients fibrinogen is lower than 100, we do not have plasma inhouse, patient will undergo PLEX with Albumin and recieve Cyroprecipitated (Ordered) after per the [facility] team. Continue to monitor NIF Continue IMCU care in this critically ill patient. 02/21: Tolerated PLEX yesterday, Fibrinogen improved to 100. Patient has leukocytosis today without fever, no new neuro deficits reported today. Will request Neuro-revaluation. Case management continues to work on safe discharge plan. Plan discussed with the patient. Dispo based on evaluation by Neuro 02/22: Patient seen and examined today, awaiting 4/5 PLEX therapy, awaiting Neurology re-evaluation. Discussed with case management and patient about discharge plans. 02/23: Patient seen and examined, Neurology input noted: change mestinon from 180 mg po qday to 60 mg po tid; prednisone from 80 mg po qday to 40 mg po qday; continue cellcept (per home regimen); plex 4/5 ongoing at bedside today; pt/ot/st evaluation/monitoring; f/u established neurologist within 2 weeks post- discharge. Patient can be discharged after THE LAST PLEX TOMORROW. 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 He was passing through [place] when symptoms started - S/p emergent intubation by anethesia - CT chest w con showed no evidence of thymoma - Neurology consulted, appreciated recommendations - Resumed home meds: Cellcept, Mestinon, and PO Prednisone - Completed X 5 days of IVIG - Plasma exchange initiated on 02/16, Received X2 treament. For a total of 5 exchanges to be completed over 9 days. - CCM also on consult, appreciated recommendations - Patient reported that his neurologist in [place] is Dr. Billie Delgado - Transfer to [facility] was declined, no available ICU beds at this time. They recommend continuing IVIG and possible plasma exchange #Acute Hypoxemic Respiratory Failure #Probable ANTON- On CPAP at home #Former Smoker - most likely related to MG crisis - S/p emergent intubation by anesthesia on 02/07 for airway protection - 02/09 s/p extubation - Stable on RA this am - CCM consulted, appreciate recommendations - Completed X5 days of IVIG - Continue plasma exchange and IS ordered - Continue Bipap at night - Aspiration precaution HOB above 30 - PRN O2 supplementation as needed - Continue SPO2 monitoring for SPO2 goal above 92% #Hepatic Hemangiomas - noted fro CT chest w/o con - Stable, LFTs within normal range - Outpatient follow up for US and further workups #Obesity - Balanced diet, increase physical activity discharge, outpatient pulmonary follow-up for sleep study, weight reduction. #GI/DVT Prophylaxis - PPI- Pepcid - Lovenox SubQ - SCD to bilateral lower extremities while in bed #Advance Care Planning - Disease education data, care plan, diagnoses, and prognosis were discussed with patient at the bedside. Patient is a Full code. Patient acknowledged understanding and agreement with current care plan. - Patient reported in case of an emergency and he is unable to make his own decision, his NOK is his aunt who resides in [place], [place]. Heike Araujo, phone# The high probability of a clinically significant, sudden or life threatening deterioration of the [multiple] system(s) required my full and direct attention, intervention and personal management. The aggregate critical care time was [60] minutes. This time is in addition to time spent performing reported procedures but includes the following: [x] Data Review and interpretation [x] Patient assessment and monitoring of vital signs [x] Documentation [x] Medication orders and management History Interval history: Patient seen and examined, no new complaints today. no new complaints Hospitalist Physical - Physical exam Narrative exam: General appearance: Present: no acute distress, well-nourished, obese, sitting up - EENT Eyes: Present: PERRL, EOM intact ENT: hearing intact - Neck Neck: Present: normal ROM - Respiratory Respiratory effort: normal Respiratory: bilateral: diminished - Cardiovascular Rhythm: regular Heart Sounds: Present: S1 & S2 - Extremities Extremities: no ischemia, pulses intact, pulses symmetrical Extremity abnormal: edema - Peripheral Assessment Generalized Edema Type: Non-pitting Edema Degree: 2+ Capillary Refill: < 3 seconds Skin Temperature: Warm Peripheral Pulses: within normal limits - Abdominal General gastrointestinal: soft, non-distended, normal bowel sounds - Integumentary Integumentary: Present: clear, warm, dry - Psychiatric Psychiatric: appropriate mood/affect, cooperative - Neurologic Neurologic: CNII-XII intact, moves all extremities - Allied Health Allied health notes reviewed: nursing, case management - Constitutional Vitals: Temp Pulse Resp BP Pulse Ox 97.8 F 92 H 29 H 117/75 97 02/23/22 13:01 02/23/22 13:01 02/23/22 13:01 02/23/22 13:01 02/23/22 13:01 General appearance: Present: no acute distress, well-nourished, obese Results - Labs CBC & Chem 7: 02/23/22 04:08 02/23/22 04:08 Labs: Laboratory Last Values WBC 11.4 K/mm3 (4.5-11.0) H 02/23/22 04:08 RBC 4.68 M/mm3 (3.65-5.03) 02/23/22 04:08 Hgb 10.5 gm/dl (11.8-15.2) L 02/23/22 04:08 Hct 33.9 % (35.5-45.6) L 02/23/22 04:08 MCV 72 fl (84-94) L 02/23/22 04:08 MCH 22 pg (28-32) L 02/23/22 04:08 MCHC 31 % (32-34) L 02/23/22 04:08 RDW 19.3 % (13.2-15.2) H 02/23/22 04:08 Plt Count 223 K/mm3 (140-440) 02/23/22 04:08 Lymph % (Auto) 27.4 % (13.4-35.0) 02/21/22 09:50 [place] % (Auto) 7.3 % (0.0-7.3) 02/21/22 09:50 Eos % (Auto) 0.1 % (0.0-4.3) 02/21/22 09:50 Baso % (Auto) 0.2 % (0.0-1.8) 02/21/22 09:50 Lymph # (Auto) 3.6 K/mm3 (1.2-5.4) 02/21/22 09:50 [place] # (Auto) 1.0 K/mm3 (0.0-0.8) H 02/21/22 09:50 Eos # (Auto) 0.0 K/mm3 (0.0-0.4) 02/21/22 09:50 Baso # (Auto) 0.0 K/mm3 (0.0-0.1) 02/21/22 09:50 Seg Neutrophils % 65.0 % (40.0-70.0) 02/21/22 09:50 Seg Neutrophils # 8.5 K/mm3 (1.8-7.7) H 02/21/22 09:50 Fibrinogen 114 mg/dl (211-480) L* 02/22/22 10:11 ABG pH 7.333 pH Units (7.350-7.450) L 02/08/22 09:20 ABG pCO2 48.2 mm Hg 02/08/22 09:20 ABG pO2 114.7 mm Hg (80.0-90.0) H 02/08/22 09:20 ABG HCO3 25.0 mmol/L (20.0-26.0) 02/08/22 09:20 ABG O2 Saturation 97.9 % (95.0-99.0) 02/08/22 09:20 ABG O2 Content 15.1 (0.0-44) 02/08/22 09:20 ABG Base Excess -1.1 mmol/L (-2.0-3.0) 02/08/22 09:20 ABG Hemoglobin 11.1 gm/dl (14.0-18.0) L 02/08/22 09:20 ABG Carboxyhemoglobin 1.4 % (0.0-5.0) 02/08/22 09:20 ABG Methemoglobin 0.5 % (0.0-1.5) 02/08/22 09:20 Oxyhemoglobin 96.1 % (95.0-99.0) 02/08/22 09:20 FiO2 35 % 02/08/22 09:20 Sodium 140 mmol/L (137-145) 02/23/22 04:08 Potassium 3.7 mmol/L (3.6-5.0) D 02/23/22 04:08 Chloride 106.9 mmol/L (98-107) 02/23/22 04:08 Carbon Dioxide 26 mmol/L (22-30) 02/23/22 04:08 Anion Gap 11 mmol/L 02/23/22 04:08 BUN 9 mg/dL (9-20) 02/23/22 04:08 Creatinine 0.5 mg/dL (0.8-1.3) L 02/23/22 04:08 Estimated GFR > 60 ml/min 02/23/22 04:08 BUN/Creatinine Ratio 18 % 02/23/22 04:08 Glucose 94 mg/dL (75-100) 02/23/22 04:08 Calcium 8.7 mg/dL (8.4-10.2) 02/23/22 04:08 Total Bilirubin 0.30 mg/dL (0.1-1.2) 02/23/22 04:08 AST 9 units/L (5-40) 02/23/22 04:08 ALT 11 units/L (7-56) 02/23/22 04:08 Alkaline Phosphatase 23 units/L (35-129) L 02/23/22 04:08 Total Protein 5.2 g/dL (6.3-8.2) L 02/23/22 04:08 Albumin 4.8 g/dL (3.9-5) 02/23/22 04:08 Albumin/Globulin Ratio 12.0 % 02/23/22 04:08 Actin IgG Antibody <20 U (<20) 02/16/22 04:52 Blood Type O POSITIVE 02/20/22 19:20 Antibody Screen Negative 02/20/22 19:20 [place]/IV: Voiding Method Urinal Active Medications - Current Medications Current Medications: Generic Name Dose Route Start Last Admin Trade Name Freq PRN Reason Stop Dose Admin Acetaminophen 650 mg 02/06/22 15:00 02/22/22 14:22 Acetaminophen 325 Mg Tab PO 650 mg Q6H PRN Administration Pain MILD(1-3)/Fever >100.5/WEINBERG Albumin Human 200 gm 02/16/22 13:00 02/22/22 13:24 Albumin Human 5% (25 Gm/500 Ml) Inj IV 02/24/22 13:01 200 gm Q48H NESTOR Administration Albuterol 2.5 mg 02/06/22 15:00 02/15/22 21:54 Albuterol 2.5 Mg/3 Ml Nebu IH 2.5 mg Q3HRT PRN Administration Shortness Of Breath Diphenhydramine HCl 25 mg 02/15/22 14:06 02/16/22 11:49 Diphenhydramine 50 Mg/Ml Vial IV 25 mg Q6H PRN Administration Itching Enoxaparin Sodium 40 mg 02/06/22 22:00 02/22/22 21:12 Enoxaparin 40 Mg/0.4 Ml Inj SUB-Q 40 mg QDAY@2200 NESTOR Administration Protocol Famotidine 20 mg 02/12/22 10:00 02/23/22 09:49 Famotidine 20 Mg Tab PO 20 mg BID NESTOR Administration Hydrophilic Ointment 1 applic 02/07/22 10:55 Lip Therapy Vaseline TP Q2HR PRN Dry Lips Melatonin 5 mg 02/21/22 01:15 02/21/22 01:40 Melatonin 5 Mg Tab PO 5 mg QHS PRN Administration Sleep Multi-Ingred Cream/Lotion/Oil/Oint 1 applic 02/07/22 10:55 Mineral Oil/Petrolatum, White Ophth Oint 3.5 Gm OU Q4HR PRN Dry Eye(s) Mycophenolate Mofetil 1,000 mg 02/21/22 10:00 02/23/22 09:49 Mycophenolate 500 Mg Tab PO 1,000 mg BID NESTOR Administration Ondansetron HCl 4 mg 02/08/22 17:00 02/20/22 23:58 Ondansetron 4 Mg/2 Ml Inj IV 4 mg Q8H PRN Administration Nausea And Vomiting Oxycodone/Acetaminophen 1 tab 02/06/22 15:00 02/23/22 09:49 Oxycodone /Acetaminophen 5-325mg Tab PO 1 tab Q16H PRN Administration Pain, Moderate (4-6) Prednisone 40 mg 02/23/22 10:00 02/23/22 09:49 Prednisone 20 Mg Tab PO 40 mg QDAY NESTOR Administration Pyridostigmine [place] 60 mg 02/23/22 08:00 02/23/22 09:50 Pyridostigmine [place] 60 Mg Tab PO 60 mg TID NESTOR Administration Senna/Docusate Sodium 1 tab 02/12/22 10:00 02/23/22 10:11 Sennosides/Docusate Sodium 8.6/50 Mg Tab PO Not Given BID NESTOR Sodium Chloride 10 ml 02/06/22 22:00 02/23/22 09:50 Sodium Chloride 0.9% 10 Ml Flush Syringe IV 10 ml BID NESTOR Administration Sodium Chloride 10 ml 02/06/22 13:59 Sodium Chloride 0.9% 10 Ml Flush Syringe IV PRN PRN LINE FLUSH Nutrition/Malnutrition Assess - Dietary Evaluation Nutrition/Malnutrition Findings: Nutrition Notes Start: 02/07/22 13:09 Freq: Status: Active Protocol: Document 02/20/22 12:04 PRADEEP (Rec: 02/20/22 12:23 PRADEEP [id number]) Nutrition Notes Initial or Follow up Reassessment Current Diagnosis Respiratory Failure Other Pertinent Diagnosis Myasthenia Gravis. Current Diet Regular Diet (since L 02/19). Labs/Tests 02/20: Crea 0.5, Glu 107. Pertinent Medications 02/20: Nutritionally unremarkable. Height 5 ft 10 in Weight 102 kg [place] Body Weight (kg) 75.45 BMI 32.2 Weight change and time frame Body weight on chart (192 Kg) is wrong. Unable to reach RN over the phone at this time. Weight Status Obese Subjective/Other Information RD consult for routine F/U on dietary advancement. Pt advanced to Regular Diet, Pt's PO intake of meals has been Good (100%), according to ADL notes. Pt is on NIV/Bi-PaP+, O2 saturation @ 100%, according top Physical Assessment History notes. CATALYTIC CASE OPERATOR note on 02/15/22 14:34: Swallowing function was reassessed. Patient's swallowing function has declined since he was discharged from this service. Laryngeal elevation is reduced with slower oral transit time and aspiration with thins and semi solids. Recommend a pureed diet with nectar thickened liquids. Will continue to follow. Informed his nurse of findings. - END OF NOTE. Percent of energy/protein needs met: Prescribed Regular Diet provides for energy/protein needs (2,289 Kcal/89 g) during LOS. Burn Absent Trauma Absent GI Symptoms None Food Allergy No Skin Integrity/Comment Assessment WNL. 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 Diagnosis Progress(for reassessment Resolved documentation) Is patient on ventilator? No Is Patient Ambulatory and/or Out of Bed No REE-([facility]-confined to bed) 2349.732 Kcal/Kg value to use for calculation 20 Approximate Energy Requirements Using 2040 kcal/Kg Calculation Used for Recommendations Kcal/kg Additional Notes Protein: 0.8-1 g/Kg AdjBW; 71- 89 g/day. Fluids: 1 ml/Kcal, or as per MD. Nutrition Intervention Change Diet Order: Contrinue Regular Diet. Goal #1 Adjust the dietary intervention to better serve Pt's needs and clinical conditions during LOS. Follow-Up By: 02/27/22 Additional Comments Continue monitoring food tolerance, %PO intake of meals , and BM.
[2022-02-23] MEDS: ENOXAPARIN 40 MG/0.4 ML INJ SUB-Q SCH (21:26)
[2022-02-24 04:57] LABS: Blood Urea Nitrogen 10 mg/dL (9-20); Calcium 8.8 mg/dL (8.4-10.2); Hemolysis Index 4
[2022-02-24 05:03] LABS: BUN/Creatinine Ratio 20
[2022-02-24 05:04] LABS: Hematocrit 33.2 % (35.5-45.6); Hemoglobin 10.3 gm/dl (11.8-15.2); Mean Corpuscular HGB Conc 31 % (32-34); Mean Corpuscular Volume 72 fl (84-94); Platelet Count 235 K/mm3 (140-440)
[2022-02-24] MEDS: ACETAMINOPHEN 325 MG TAB PO PRN (05:44)
[2022-02-24] MEDS: MYCOPHENOLATE 500 MG TAB PO SCH ×2 (09:12→22:50)
[2022-02-24] MEDS: SENNOSIDES/DOCUSATE SODIUM 8.6/50 MG TAB PO SCH ×2 (09:12→22:51)
[2022-02-24] MEDS: PYRIDOSTIGMINE BROMIDE 60 MG TAB PO SCH ×3 (09:12→22:50)
[2022-02-24] MEDS: FAMOTIDINE 20 MG TAB PO SCH ×2 (09:13→22:50)
[2022-02-24] MEDS: predniSONE 20 MG TAB PO SCH (09:13)
[2022-02-24] MEDS ORDERED: SODIUM CHLORIDE 0.9% 500 ML 500 ML IV ONE (11:23)
[2022-02-24] MEDS: oxyCODONE /ACETAMINOPHEN 5-325MG TAB PO PRN (12:15)
[2022-02-24] MEDS: ALBUMIN HUMAN 5% (25 GM/500 ML) INJ IV SCH (14:13)
[2022-02-24] MEDS: CALCIUM GLUCONATE 1,000 MG/NS 100 ML PREMIX IV SCH (14:14)
--- NOTE | 2022-02-24 15:52 | Progress Note ---
Assessment and Plan Myasthenic crisis, s/p MVS Obesity Possible ANTON / OHS Blurry vision Mild hypokalemia-resolved Mild metabolic acidosis-resolved Complete plasmapharesis today Start slow steroid taper -Continue immunosuppresants- prednisone , pyridostigmine and cellcept. - continue to avoid aminoglycosides, flouroquinolones -continue to keep potassium at 4, Mag at 2 and Phos at >2.5 - continue to titrate supplemental oxygen to keep SpO2 90-92% - CPAP qhs and prn - continue bronchodilators with pulmonary hygiene per RT - continue accuchecks with glycemic control per SSI (While critically ill target blood glucose of 140-180 mg/dL; avoid hypoglycemia) - avoid nephrotoxins, renally dose all medications - continue to avoid benzodiazepines, reduce the possibility of delirium - prn analgesia per CPOT score - Maintenance of sleep-wake cycle, avoid delirium - VTE prophylaxis- Heparin - continue other care per attending / other consultants CONDITION: FAIR PROGNOSIS: FAIR CODE STATUS: FULL CODE Subjective Date of service: 02/24/22 Principal diagnosis: Myasthenic crisis; Obesity; Possible ANTON/OHS; Blurry vision; Hypokalemia Interval history: Patient is seen today for: Myasthenic crisis; Obesity; Possible ANTON / OHS; Blurry vision; Mild hypokalemia; Mild metabolic acidosis Seen and examined at bedside; 24hour events reviewed; nursing and respiratory care staff consulted; no adverse overnight events reported to me; resting in bed; denies N/V/F/C; awake and alert, feels great. Getting treatment 5/5 of plasmapharesis. Resting in bed, compliant with CPAP at night Objective Vital Signs - 12hr 02/24/22 02/24/22 02/24/22 03:55 04:00 04:01 Temperature 97.4 F L Pulse Rate 50 L 49 L Respiratory 14 Rate Blood Pressure 111/69 O2 Sat by Pulse 100 90 Oximetry 02/24/22 02/24/22 02/24/22 05:01 06:01 07:01 Temperature Pulse Rate 52 L 45 L 45 L Respiratory 13 14 13 Rate Blood Pressure 117/75 112/58 111/63 O2 Sat by Pulse 98 100 100 Oximetry 02/24/22 02/24/22 02/24/22 08:00 08:01 09:01 Temperature 98.1 F Pulse Rate 58 L 63 76 Respiratory 22 22 Rate Blood Pressure 128/65 120/63 O2 Sat by Pulse 100 99 100 Oximetry 02/24/22 02/24/22 02/24/22 10:01 11:01 12:00 Temperature 98.2 F Pulse Rate 70 86 78 Respiratory 13 20 Rate Blood Pressure 111/53 122/65 O2 Sat by Pulse 100 93 98 Oximetry 02/24/22 02/24/22 02/24/22 12:01 13:01 14:00 Temperature Pulse Rate 78 72 73 Respiratory 16 19 22 Rate Blood Pressure 134/71 119/56 111/62 O2 Sat by Pulse 91 99 97 Oximetry 02/24/22 02/24/22 14:15 15:00 Temperature Pulse Rate 71 69 Respiratory 22 19 Rate Blood Pressure 104/57 110/69 O2 Sat by Pulse 96 100 Oximetry Constitutional: no acute distress, alert, other (young obese male without increased respiratory effort at rest) Eyes: non-icteric ENT: oropharynx moist Neck: supple, no lymphadenopathy, no JVD, other (large circumference) Effort: normal Ascultation: Bilateral: clear, diminished breath sounds Percussion: Bilateral: not dull Cardiovascular: regular rate and rhythm Gastrointestinal: normoactive bowel sounds, soft, non-tender, non-distended (protuberant) Integumentary: normal Extremities: no cyanosis, no edema, pulses normal, no ischemia or petechiae Neurologic: non-focal exam (grossly), pupils equal and round, CN II-XII normal, other (weak (3-4/5)) Psychiatric: mood appropriate, affect normal CBC and BMP: 02/24/22 04:03 02/24/22 04:03 ABG, PT/INR, D-dimer: ABG ABG pH 7.333 pH Units (7.350-7.450) L 02/08/22 09:20 ABG pCO2 48.2 mm Hg 02/08/22 09:20 ABG pO2 114.7 mm Hg (80.0-90.0) H 02/08/22 09:20 ABG O2 Saturation 97.9 % (95.0-99.0) 02/08/22 09:20 Abnormal lab findings: Abnormal Labs 02/06/22 02/06/22 02/06/22 12:39 12:39 13:59 WBC RBC 5.75 H Hgb Hct MCV 74 L MCH 23 L MCHC 30 L RDW 16.9 H Lymph % (Auto) 6.4 L [place] % (Auto) Lymph # (Auto) 0.5 L [place] # (Auto) Seg Neutrophils % 89.3 H Seg Neutrophils # Fibrinogen ABG pH ABG pO2 ABG Hemoglobin 12.6 L Oxyhemoglobin Potassium 3.5 L Chloride 109.1 H Carbon Dioxide 20 L Creatinine 0.7 L Glucose 113 H Alkaline Phosphatase Total Protein Albumin 02/07/22 02/07/22 02/08/22 04:15 12:00 04:23 WBC RBC 5.10 H Hgb 11.5 L 11.0 L Hct MCV 72 L 74 L MCH 23 L 22 L MCHC 30 L RDW 17.3 H 17.1 H Lymph % (Auto) [place] % (Auto) 9.1 H Lymph # (Auto) [place] # (Auto) Seg Neutrophils % Seg Neutrophils # Fibrinogen ABG pH ABG pO2 72.6 L ABG Hemoglobin 12.2 L Oxyhemoglobin 94.4 L Potassium Chloride Carbon Dioxide Creatinine Glucose Alkaline Phosphatase Total Protein Albumin 02/08/22 02/08/22 02/09/22 04:23 09:20 04:50 WBC RBC Hgb 10.4 L Hct 33.7 L MCV 73 L MCH 22 L MCHC 31 L RDW 17.5 H Lymph % (Auto) [place] % (Auto) Lymph # (Auto) [place] # (Auto) Seg Neutrophils % Seg Neutrophils # Fibrinogen ABG pH 7.333 L ABG pO2 114.7 H ABG Hemoglobin 11.1 L Oxyhemoglobin Potassium Chloride 109.3 H Carbon Dioxide Creatinine 0.6 L Glucose Alkaline Phosphatase Total Protein Albumin 02/09/22 02/10/22 02/11/22 04:50 04:50 04:38 WBC 4.4 L 3.3 L RBC Hgb 10.1 L 10.4 L Hct 32.9 L 33.6 L MCV 73 L 73 L MCH 22 L 23 L MCHC 31 L 31 L RDW 17.2 H 17.0 H Lymph % (Auto) [place] % (Auto) Lymph # (Auto) [place] # (Auto) Seg Neutrophils % Seg Neutrophils # Fibrinogen ABG pH ABG pO2 ABG Hemoglobin Oxyhemoglobin Potassium Chloride Carbon Dioxide Creatinine Glucose 107 H Alkaline Phosphatase Total Protein Albumin 02/11/22 02/12/22 02/13/22 04:38 04:25 04:17 WBC 3.7 L 3.5 L RBC Hgb 10.5 L 10.8 L Hct 34.5 L MCV 73 L 73 L MCH 22 L 22 L MCHC 30 L 30 L RDW 16.9 H 17.5 H Lymph % (Auto) [place] % (Auto) Lymph # (Auto) [place] # (Auto) Seg Neutrophils % Seg Neutrophils # Fibrinogen ABG pH ABG pO2 ABG Hemoglobin Oxyhemoglobin Potassium Chloride Carbon Dioxide Creatinine 0.7 L Glucose 101 H Alkaline Phosphatase Total Protein Albumin 02/16/22 02/16/22 02/18/22 04:52 04:52 07:18 WBC RBC Hgb 11.4 L 11.4 L Hct 35.3 L MCV 71 L 72 L MCH 23 L 23 L MCHC RDW 17.4 H 17.3 H Lymph % (Auto) 43.5 H [place] % (Auto) 7.6 H 7.6 H Lymph # (Auto) [place] # (Auto) Seg Neutrophils % 71.5 H Seg Neutrophils # Fibrinogen ABG pH ABG pO2 ABG Hemoglobin Oxyhemoglobin Potassium Chloride Carbon Dioxide Creatinine 0.6 L Glucose Alkaline Phosphatase Total Protein Albumin 3.5 L 02/18/22 02/18/22 02/20/22 07:18 07:18 04:23 WBC RBC 5.22 H Hgb 11.6 L Hct MCV 73 L MCH 22 L MCHC 31 L RDW 18.0 H Lymph % (Auto) [place] % (Auto) Lymph # (Auto) [place] # (Auto) Seg Neutrophils % Seg Neutrophils # Fibrinogen 144 L* ABG pH ABG pO2 ABG Hemoglobin Oxyhemoglobin Potassium Chloride Carbon Dioxide Creatinine 0.5 L Glucose Alkaline Phosphatase Total Protein Albumin 02/20/22 02/20/22 02/21/22 04:23 04:23 09:50 WBC 13.1 H RBC 5.36 H Hgb Hct MCV 73 L MCH 22 L MCHC 31 L RDW 18.4 H Lymph % (Auto) [place] % (Auto) Lymph # (Auto) [place] # (Auto) 1.0 H Seg Neutrophils % Seg Neutrophils # 8.5 H Fibrinogen 89 L* ABG pH ABG pO2 ABG Hemoglobin Oxyhemoglobin Potassium Chloride Carbon Dioxide Creatinine 0.5 L Glucose 107 H Alkaline Phosphatase Total Protein Albumin 02/21/22 02/21/22 02/22/22 09:50 09:50 03:30 WBC 11.7 H RBC 5.16 H Hgb 11.4 L Hct MCV 73 L MCH 22 L MCHC 31 L RDW 18.5 H Lymph % (Auto) [place] % (Auto) Lymph # (Auto) [place] # (Auto) Seg Neutrophils % Seg Neutrophils # Fibrinogen 100 L* ABG pH ABG pO2 ABG Hemoglobin Oxyhemoglobin Potassium Chloride Carbon Dioxide Creatinine 0.7 L Glucose Alkaline Phosphatase Total Protein Albumin 02/22/22 02/22/22 02/23/22 03:30 10:11 04:08 WBC 11.4 H RBC Hgb 10.5 L Hct 33.9 L MCV 72 L MCH 22 L MCHC 31 L RDW 19.3 H Lymph % (Auto) [place] % (Auto) Lymph # (Auto) [place] # (Auto) Seg Neutrophils % Seg Neutrophils # Fibrinogen 114 L* ABG pH ABG pO2 ABG Hemoglobin Oxyhemoglobin Potassium Chloride Carbon Dioxide Creatinine 0.5 L Glucose Alkaline Phosphatase Total Protein 5.8 L Albumin 02/23/22 02/24/22 02/24/22 04:08 04:03 04:03 WBC RBC Hgb 10.3 L Hct 33.2 L MCV 72 L MCH 22 L MCHC 31 L RDW 19.0 H Lymph % (Auto) [place] % (Auto) Lymph # (Auto) [place] # (Auto) Seg Neutrophils % Seg Neutrophils # Fibrinogen 68 L* ABG pH ABG pO2 ABG Hemoglobin Oxyhemoglobin Potassium Chloride Carbon Dioxide Creatinine 0.5 L Glucose Alkaline Phosphatase 23 L Total Protein 5.2 L Albumin 02/24/22 04:03 WBC RBC Hgb Hct MCV MCH MCHC RDW Lymph % (Auto) [place] % (Auto) Lymph # (Auto) [place] # (Auto) Seg Neutrophils % Seg Neutrophils # Fibrinogen ABG pH ABG pO2 ABG Hemoglobin Oxyhemoglobin Potassium Chloride Carbon Dioxide Creatinine 0.5 L Glucose Alkaline Phosphatase Total Protein Albumin Allied health notes reviewed: nursing
--- NOTE | 2022-02-24 16:22 | Progress Note ---
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 He was passing through [place] when symptoms started - S/p emergent intubation by anethesia - CT chest w con showed no evidence of thymoma - Neurology consulted, appreciated recommendations - Resumed home meds: Cellcept, Mestinon, and PO Prednisone - Completed X 5 days of IVIG - Plasma exchange initiated on 02/16, Received X2 treament. For a total of 5 exchanges to be completed over 9 days. - CCM also on consult, appreciated recommendations - Patient reported that his neurologist in [place] is Dr. Billie Delgado - Transfer to [facility] was declined, no available ICU beds at this time. They recommend continuing IVIG and possible plasma exchange -Plasmapheresis being done today and FFP's were ordered as fibrinogen is low #Acute Hypoxemic Respiratory Failure #Probable ANTON- On CPAP at home #Former Smoker - most likely related to MG crisis - S/p emergent intubation by anesthesia on 02/07 for airway protection - 02/09 s/p extubation - Stable on RA this am - CCM consulted, appreciate recommendations - Completed X5 days of IVIG - Continue plasma exchange and IS ordered - Continue Bipap at night - Aspiration precaution HOB above 30 - PRN O2 supplementation as needed - Continue SPO2 monitoring for SPO2 goal above 92% #Hepatic Hemangiomas - noted fro CT chest w/o con - Stable, LFTs within normal range - Outpatient follow up for US and further workups #Obesity - Balanced diet, increase physical activity discharge, outpatient pulmonary follow-up for sleep study, weight reduction. #GI/DVT Prophylaxis - PPI- Pepcid - Lovenox SubQ - SCD to bilateral lower extremities while in bed #Advance Care Planning - Disease education data, care plan, diagnoses, and prognosis were discussed with patient at the bedside. Patient is a Full code. Patient acknowledged understanding and agreement with current care plan. - Patient reported in case of an emergency and he is unable to make his own decision, his NOK is his aunt who resides in [place], [place]. Heike Araujo, phone# The high probability of a clinically significant, sudden or life threatening deterioration of the [multiple] system(s) required my full and direct attention, intervention and personal management. The aggregate critical care time was [60] minutes. This time is in addition to time spent performing reported procedures but includes the following: [x] Data Review and interpretation [x] Patient assessment and monitoring of vital signs [x] Documentation [x] Medication orders and management Subjective Date of service: 02/24/22 Principal diagnosis: Myasthenic crisis; Obesity; Possible ANTON/OHS; Blurry vision; Hypokalemia Interval history: This is a 36-year-old male with known past medical history of obesity and myasthenia gravis admitted for myasthenia gravis crisis. Hospital Course to Date: 02/07: S/p X1 dose of IV IG overnight, patient reported feeling much better and stronger this am, moving all extremities. Plan to wean off Bipap this am. Okay to start a diet if patient pass bedside swallow. D/W CCM plan for CT chest w con tomorrow to r/o thymoma. Neurology consulted. 02/08: S/p emergent intubation by anethesia yesterday. Now intubated and sedated, RASS -2. Neurology recommendations noted. Resumed home meds. Will wean off sedation this am for possible SAT/SBT. CT chest also noted with no evidence of thymoma. Continue IVIG. Attending received call back from [facility]. Transfer was declined, no available ICU beds at this time. They recommend continuing IVIG and possible plasma exchange. Awaiting on Neurology final recommendations. 02/09: S/p Extubation this am. Desated to 85% on 3L NC, SPO2 improved to 88% on 8L NC. This am CXR noted, worsen opacity of the left side. CCM at the bedside, X1 dose of IV Lasix ordered and place patient on Bipap. Low Threshold for reintubation. Plan of care and the high probability for reintubation was discussed with patient at the bedside. Patient verbalized understanding and agree with current care plan. Continue IVIG, Awaiting on Neurology final recommendations. 02/10: Tolerated Bipap, now on 2L NC this am, SPO2 at 100%. No s/s of any acute respiratory distress noted. This am CXR also noted with significant improvement. Continue IVIGm and Bipap at night. Incentive Spirometer also ordered. advance diet as tolerated. PT/OT/Speech consulted. 02/11: Completed x5days of IVIG overnight. Stable on RA, still complaining of generalized weakness, other stable. Diet advanced to solid this am, patient is tolerating it. Continue IS and Bipap at night. Encourage mobility as tolerated, PT/OT/Speech consult pending. 02/12: CPAP prn, currently on RA. Improved strength to BLE and BUE per patient. 02/13: Increased weakness reported on encounter. increased steroid dose to prednisone 40 mg po daily. Continue pyridostigmine and cellcept. Possible d/c tomorrow. 02/14: Weakness improved however still continues to have difficulty with strength. Still has right eye lid droop. Patient increased to prednisone 60 mg p o daily. 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 Pt recommended home with home health care PT. Ambulation is challenging as patient requires a rolling walker. 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 Patient is not a resident of [place]. States his home state is [place]. He has a sister in [place] who's address he uses for mailing purposes. Will work with CM to coordinate placement. 02/15: worsened strength. Admits to dysphagia and shortness of breath today. Chintan patterson worsening symptmology transferring back to ICU for close monitoring. Plasma exchange ordered, first tx tomorrow, coordinated with Dr Katya Manley. Will place vascat today/tomorrow AM for exchanges. Steroid dose increased to Prednisone 80 mg po daily in interim. Will attempt to call neurologist tomorrow AM. 02/16: Plan for plasma exchange today. Labs reviewed, cbc/bmp/fibrinogen all unremarkable. Trialysis catheter placed, pt tolerated procedure well. Taryn Manley will be here today do 4L exchange. A total of 5 exchanges will be completed over 9 days. A total of 20 L 5% albumin will be needed, pharmacy was notified yesterday of this. Continue prednisone 80 mg po daily dose. 02/17: No overnight events. No acute complaints. Tolerated PLEX well. Continue steroids and will follow for symptom improvement. 02/18: Plex tx today. XR ordered due to severe rib pain, no rib fx ID. Will continue to follow for sx improvement. 02/19: Doing much better this am. OOB and sitting up in the chair this am, stable on RA. Still complaining of generalized but reported feeling better. Continue plasma exchange and PO prednisone, cellcept, and Mycophenolate. Continue PT/OT. 02/20: Patient seen and examined, clinically showing some improvement, will continue on current Prednisone Dose, patients fibrinogen is lower than 100, we do not have plasma inhouse, patient will undergo PLEX with Albumin and recieve Cyroprecipitated (Ordered) after per the [place] team. Continue to monitor NIF Continue IMCU care in this critically ill patient. 02/21: Tolerated PLEX yesterday, Fibrinogen improved to 100. Patient has leukocytosis today without fever, no new neuro deficits reported today. Will request Neuro-revaluation. Case management continues to work on safe discharge plan. Plan discussed with the patient. Dispo based on evaluation by Neuro 02/22: Patient seen and examined today, awaiting 4/5 PLEX therapy, awaiting Neurology re-evaluation. Discussed with case management and patient about discharge plans. 02/23: Patient seen and examined, Neurology input noted: change mestinon from 180 mg po qday to 60 mg po tid; prednisone from 80 mg po qday to 40 mg po qday; continue cellcept (per home regimen); plex 4/5 ongoing at bedside today; pt/ot/st evaluation/monitoring; f/u established neurologist within 2 weeks post- discharge. Patient can be discharged after THE LAST PLEX TOMORROW. Objective - Constitutional Vitals: Vital Signs - 12hr 02/24/22 02/24/22 02/24/22 05:01 06:01 07:01 Temperature Pulse Rate 52 L 45 L 45 L Respiratory 13 14 13 Rate Blood Pressure 117/75 112/58 111/63 O2 Sat by Pulse 98 100 100 Oximetry 02/24/22 02/24/22 02/24/22 08:00 08:01 09:01 Temperature 98.1 F Pulse Rate 58 L 63 76 Respiratory 22 22 Rate Blood Pressure 128/65 120/63 O2 Sat by Pulse 100 99 100 Oximetry 02/24/22 02/24/22 02/24/22 10:01 11:01 12:00 Temperature 98.2 F Pulse Rate 70 86 78 Respiratory 13 20 Rate Blood Pressure 111/53 122/65 O2 Sat by Pulse 100 93 98 Oximetry 02/24/22 02/24/22 02/24/22 12:01 13:01 14:00 Temperature Pulse Rate 78 72 73 Respiratory 16 19 22 Rate Blood Pressure 134/71 119/56 111/62 O2 Sat by Pulse 91 99 97 Oximetry 02/24/22 02/24/22 14:15 15:00 Temperature Pulse Rate 71 69 Respiratory 22 19 Rate Blood Pressure 104/57 110/69 O2 Sat by Pulse 96 100 Oximetry General appearance: Present: no acute distress, well-nourished - EENT Eyes: PERRL, EOM intact ENT: hearing intact, clear oral mucosa Ears: bilateral: normal - Neck Neck: supple, normal ROM - Respiratory Respiratory effort: normal Respiratory: bilateral: CTA - Breasts Breasts: normal - Cardiovascular Rhythm: regular Heart Sounds: Present: S1 & S2. Absent: gallop, rub Extremities: pulses intact, No edema, normal color, Full ROM - Gastrointestinal General gastrointestinal: Present: soft, non-tender, non-distended, normal bowel sounds - Genitourinary Male genitourinary: normal - Integumentary Integumentary: clear, warm, dry - Musculoskeletal Musculoskeletal: 1, strength equal bilaterally - Neurologic Neurologic: moves all extremities - Psychiatric Psychiatric: memory intact, appropriate mood/affect, intact judgment & insight - Labs CBC & Chem 7: 02/24/22 04:03 02/24/22 04:03 Labs: Abnormal lab results 02/24/22 02/24/22 02/24/22 Range/Units 04:03 04:03 04:03 Hgb 10.3 L (11.8-15.2) gm/dl Hct 33.2 L (35.5-45.6) % MCV 72 L (84-94) fl MCH 22 L (28-32) pg MCHC 31 L (32-34) % RDW 19.0 H (13.2-15.2) % Fibrinogen 68 L* (211-480) mg/dl Creatinine 0.5 L (0.8-1.3) mg/dL
[2022-02-24] MEDS: MELATONIN 5 MG TAB PO PRN (22:50)
[2022-02-24] MEDS: ENOXAPARIN 40 MG/0.4 ML INJ SUB-Q SCH (22:51)
[2022-02-24] MEDS ORDERED: oxyCODONE /ACETAMINOPHEN 5-325MG TAB PO ONE (22:56)
[2022-02-25] MEDS: PYRIDOSTIGMINE BROMIDE 60 MG TAB PO SCH ×3 (08:21→22:30)
[2022-02-25] MEDS: FAMOTIDINE 20 MG TAB PO SCH ×2 (10:13→22:36)
[2022-02-25] MEDS: predniSONE 20 MG TAB PO SCH (10:13)
[2022-02-25] MEDS: MYCOPHENOLATE 500 MG TAB PO SCH ×2 (10:14→23:37)
[2022-02-25] MEDS: SENNOSIDES/DOCUSATE SODIUM 8.6/50 MG TAB PO SCH ×2 (10:18→22:36)
[2022-02-25] MEDS: ACETAMINOPHEN 325 MG TAB PO PRN ×2 (10:18→23:41)
--- NOTE | 2022-02-25 15:15 | Progress Note ---
Assessment and Plan 36 YO Male with MG currently taking Cellcept, Mycophenolate, and Prednisone presents ED for evaluation. Patient states that he had experienced generalized weakness over the past 1 day with progressive and worsening symptoms over the same timeframe. Patient states that he was able to walk earlier today but he is unable to walk. Patient also acknowledges upper extremity weakness as well as difficulty speaking. EMS was notified and upon arrival the patient was found to be in distress and subsequently transported to [facility] for further care and evaluation of the aforementioned symptoms. The patient was seen and evaluated in the emergency department. All lab and imaging studies reviewed. Patient found to have myasthenia gravis crisis with increased risk for worsening symptoms as well as development of acute hypoxemic respiratory failure. Patient placed on noninvasive positive pressure ventilation in the emergency department and admitted to ICU. IVIG ordered in the emergency department. Patient denies fever, chills, chest pain, palpitation productive cough, skin rash and recent Contact, known exposure to COVID-19. Patient eventually intubated and placed on mechanical ventilation. Patient extubated now. Patient has history vaping 2 times a day x 14 years. Stopped vaping 3 years ago. Denies alcohol abuse. Used Marijuna in his teenage years. Not used Marijuana for long time. 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 Not . Has no children. No known drug allergies. Patient has history of Sleep apnea. Uses CPAP 12 cm H2O during night time. Patient was seen in IMCU. Patient Obese, awake, Resting on room air. O2 saturation 97%. No acute respiratory distress at rest. Patient still complaining Generalized weakness. Patient finished course of PlasmaPheresis. Patient afebrile. Mild leukocytosis, Blood pressure 125/58, rate 78 respirations 16. Chest xray 02/10/22 Previous density of the left has almost completely cleared with only minimal basilar atelectasis remaining. Right lung field clear. No pneumothorax. CT scan of chest 02/08/[address] evidence of thymoma. Hypoattenuating lesions of the liver statistically reflect hepatic hemangiomas. One of these lesions demonstrate characteristic peripheral puddling of contrast, the second does not clearly demonstrate specific pattern of enhancement. Ultrasound targeting these lesions may be useful for further characterization and confirmation of hemangioma. Moderate subsegmental atelectasis of the bilateral lungs. Satisfactory positioning of endotracheal tube and esophagogastric tube. Chest xray done 02/17/22 reported No significant pulmonary or pleural abnormality. No pneumothorax. Left rib series done on 02/18/22 reported he left ribs appear unremarkable. There is no visible left rib fracture. No acute pulmonary disease. Patient is on Po Prednisone, Albuterol inhaler, S/C Lovenox and famotidine. I spent critical care time of 35 minutes in obtaining history, review the chart, Examining the patient, review xrays, lab results, talking to the nursing staff , respiratory therapy and work up plan of treatment. - Patient Problems (1) Acute hypoxemic respiratory failure Current Visit: Yes Status: Acute Plan to address problem: CPAP during night time. Continue prednisone. Continue S/C Lovenox. Continue famotidine. Albuterol inhaler prn for shortness of breath. (2) Obesity Current Visit: Yes Status: Acute Qualifiers: Body mass index: BMI 33.0-33.9 Plan to address problem: Counseled to loose weight Exercise and diet. (3) Sleep apnea Current Visit: Yes Status: Acute Plan to address problem: Patient says he has history of sleep apnea. No sleep study results available at this time. Continue CPAP as she is using at home. Recommend to loose weight. Explained sleep hygiene. Recommend not to drive or operate heavy equipment with sleepiness. Avoid alcohol, sedatives and Narcotics If sleep study is while back, recommend to repeat sleep study as out patient. (4) Myasthenia gravis Current Visit: Yes Status: Acute Plan to address problem: Patient finished course of plasmapheresis. Management as per primary care and neurology. Subjective Date of service: 02/25/22 Principal diagnosis: Myasthenic crisis; Obesity; Possible ANTON/OHS; Blurry vision; Hypokalemia Interval history: 36 YO Male with MG currently taking Cellcept, Mycophenolate, and Prednisone presents ED for evaluation. Patient states that he had experienced generalized weakness over the past 1 day with progressive and worsening symptoms over the same timeframe. Patient states that he was able to walk earlier today but he is unable to walk. Patient also acknowledges upper extremity weakness as well as difficulty speaking. EMS was notified and upon arrival the patient was found to be in distress and subsequently transported to [facility] for further care and evaluation of the aforementioned symptoms. The patient was seen and evaluated in the emergency department. All lab and imaging studies reviewed. Patient found to have myasthenia gravis crisis with increased risk for worsening symptoms as well as development of acute hypoxemic respiratory failure. Patient placed on noninvasive positive pressure ventilation in the emergency department and admitted to ICU. IVIG ordered in the emergency department. Patient denies fever, chills, chest pain, palpitation productive cough, skin rash and recent Contact, known exposure to COVID-19. Patient eventually intubated and placed on mechanical ventilation. Patient extubated now. Patient has history vaping 2 times a day x 14 years. Stopped vaping 3 years ago. Denies alcohol abuse. Used Marijuna in his teenage years. Not used Marijuana for long time. 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 Not . Has no children. No known drug allergies. Patient has history of Sleep apnea. Uses CPAP 12 cm H2O during night time. Patient was seen in IMCU. Patient Obese, awake, Resting on room air. O2 saturation 97%. No acute respiratory distress at rest. Patient still complaining Generalized weakness. Patient finished course of PlasmaPheresis. Patient afebrile. Mild leukocytosis, Blood pressure 125/58, rate 78 respirations 16. Chest xray 02/10/22 Previous density of the left has almost completely cleared with only minimal basilar atelectasis remaining. Right lung field clear. No pneumothorax. CT scan of chest 02/08/[address] evidence of thymoma. Hypoattenuating lesions of the liver statistically reflect hepatic hemangiomas. One of these lesions demonstrate characteristic peripheral puddling of contrast, the second does not clearly demonstrate specific pattern of enhancement. Ultrasound targeting these lesions may be useful for further characterization and confirmation of hemangioma. Moderate subsegmental atelectasis of the bilateral lungs. Satisfactory positioning of endotracheal tube and esophagogastric tube. Chest xray done 02/17/22 reported No significant pulmonary or pleural abnormality. No pneumothorax. Left rib series done on 02/18/22 reported he left ribs appear unremarkable. There is no visible left rib fracture. No acute pulmonary disease. Patient is on Po Prednisone, Albuterol inhaler, S/C Lovenox and famotidine. Objective Vital Signs - 12hr 02/25/22 02/25/22 02/25/22 04:00 04:05 04:50 Temperature 98.0 F Pulse Rate 49 L 47 L 50 L Respiratory 12 13 Rate Blood Pressure 108/64 108/64 O2 Sat by Pulse 100 100 Oximetry 02/25/22 02/25/2202/25/22 05:00 05:15 06:00 Temperature Pulse Rate 60 55 L Respiratory 11 L 17 Rate Blood Pressure 110/57 113/73 O2 Sat by Pulse 100 98 100 Oximetry 02/25/22 02/25/22 02/25/22 07:00 07:16 07:45 Temperature 99.0 F Pulse Rate 58 L Respiratory 13 Rate Blood Pressure 111/64 O2 Sat by Pulse 100 98 Oximetry 02/25/22 02/25/22 02/25/22 08:00 09:00 10:00 Temperature Pulse Rate 84 87 82 Respiratory 19 19 18 Rate Blood Pressure 126/63 117/60 120/58 O2 Sat by Pulse 99 99 98 Oximetry 02/25/22 02/25/22 02/25/22 11:00 12:00 12:27 Temperature 97.8 F Pulse Rate 69 79 Respiratory 15 17 Rate Blood Pressure 106/52 128/69 O2 Sat by Pulse 99 99 Oximetry 02/25/22 13:00 Temperature Pulse Rate 71 Respiratory 22 Rate Blood Pressure 127/61 O2 Sat by Pulse 100 Oximetry Constitutional: no acute distress, alert, other (young obese male without increased respiratory effort at rest) Eyes: non-icteric ENT: oropharynx moist Neck: supple, no lymphadenopathy, no JVD, other (large circumference) Effort: normal Ascultation: Bilateral: diminished breath sounds Percussion: Bilateral: not dull Cardiovascular: regular rate and rhythm Gastrointestinal: normoactive bowel sounds, soft, non-tender, non-distended (protuberant) Integumentary: normal Extremities: no cyanosis, no edema, pulses normal, no ischemia or petechiae Neurologic: non-focal exam (grossly), pupils equal and round, CN II-XII normal, other (weak (3-4/5)) Psychiatric: mood appropriate, affect normal CBC and BMP: 02/24/22 04:03 02/24/22 04:03 ABG, PT/INR, D-dimer: ABG ABG pH 7.333 pH Units (7.350-7.450) L 02/08/22 09:20 ABG pCO2 48.2 mm Hg 02/08/22 09:20 ABG pO2 114.7 mm Hg (80.0-90.0) H 02/08/22 09:20 ABG O2 Saturation 97.9 % (95.0-99.0) 02/08/22 09:20 Abnormal lab findings: Abnormal Labs 02/06/22 02/06/22 02/06/22 12:39 12:39 13:59 WBC RBC 5.75 H Hgb Hct MCV 74 L MCH 23 L MCHC 30 L RDW 16.9 H Lymph % (Auto) 6.4 L Moore % (Auto) Lymph # (Auto) 0.5 L Moore # (Auto) Seg Neutrophils % 89.3 H Seg Neutrophils # Fibrinogen ABG pH ABG pO2 ABG Hemoglobin 12.6 L Oxyhemoglobin Potassium 3.5 L Chloride 109.1 H Carbon Dioxide 20 L Creatinine 0.7 L Glucose 113 H Alkaline Phosphatase Total Protein Albumin 02/07/22 02/07/22 02/08/22 04:15 12:00 04:23 WBC RBC 5.10 H Hgb 11.5 L 11.0 L Hct MCV 72 L 74 L MCH 23 L 22 L MCHC 30 L RDW 17.3 H 17.1 H Lymph % (Auto) Moore % (Auto) 9.1 H Lymph # (Auto) Moore # (Auto) Seg Neutrophils % Seg Neutrophils # Fibrinogen ABG pH ABG pO2 72.6 L ABG Hemoglobin 12.2 L Oxyhemoglobin 94.4 L Potassium Chloride Carbon Dioxide Creatinine Glucose Alkaline Phosphatase Total Protein Albumin 02/08/22 02/08/22 02/09/22 04:23 09:20 04:50 WBC RBC Hgb 10.4 L Hct 33.7 L MCV 73 L MCH 22 L MCHC 31 L RDW 17.5 H Lymph % (Auto) Moore % (Auto) Lymph # (Auto) Moore # (Auto) Seg Neutrophils % Seg Neutrophils # Fibrinogen ABG pH 7.333 L ABG pO2 114.7 H ABG Hemoglobin 11.1 L Oxyhemoglobin Potassium Chloride 109.3 H Carbon Dioxide Creatinine 0.6 L Glucose Alkaline Phosphatase Total Protein Albumin 02/09/22 02/10/22 02/11/22 04:50 04:50 04:38 WBC 4.4 L 3.3 L RBC Hgb 10.1 L 10.4 L Hct 32.9 L 33.6 L MCV 73 L 73 L MCH 22 L 23 L MCHC 31 L 31 L RDW 17.2 H 17.0 H Lymph % (Auto) Moore % (Auto) Lymph # (Auto) Moore # (Auto) Seg Neutrophils % Seg Neutrophils # Fibrinogen ABG pH ABG pO2 ABG Hemoglobin Oxyhemoglobin Potassium Chloride Carbon Dioxide Creatinine Glucose 107 H Alkaline Phosphatase Total Protein Albumin 02/11/22 02/12/22 02/13/22 04:38 04:25 04:17 WBC 3.7 L 3.5 L RBC Hgb 10.5 L 10.8 L Hct 34.5 L MCV 73 L 73 L MCH 22 L 22 L MCHC 30 L 30 L RDW 16.9 H 17.5 H Lymph % (Auto) Moore % (Auto) Lymph # (Auto) Moore # (Auto) Seg Neutrophils % Seg Neutrophils # Fibrinogen ABG pH ABG pO2 ABG Hemoglobin Oxyhemoglobin Potassium Chloride Carbon Dioxide Creatinine 0.7 L Glucose 101 H Alkaline Phosphatase Total Protein Albumin 02/16/22 02/16/22 02/18/22 04:52 04:52 07:18 WBC RBC Hgb 11.4 L 11.4 L Hct 35.3 L MCV 71 L 72 L MCH 23 L 23 L MCHC RDW 17.4 H 17.3 H Lymph % (Auto) 43.5 H Moore % (Auto) 7.6 H 7.6 H Lymph # (Auto) Moore # (Auto) Seg Neutrophils % 71.5 H Seg Neutrophils # Fibrinogen ABG pH ABG pO2 ABG Hemoglobin Oxyhemoglobin Potassium Chloride Carbon Dioxide Creatinine 0.6 L Glucose Alkaline Phosphatase Total Protein Albumin 3.5 L 02/18/22 02/18/22 02/20/22 07:18 07:18 04:23 WBC RBC 5.22 H Hgb 11.6 L Hct MCV 73 L MCH 22 L MCHC 31 L RDW 18.0 H Lymph % (Auto) Moore % (Auto) Lymph # (Auto) Moore # (Auto) Seg Neutrophils % Seg Neutrophils # Fibrinogen 144 L* ABG pH ABG pO2 ABG Hemoglobin Oxyhemoglobin Potassium Chloride Carbon Dioxide Creatinine 0.5 L Glucose Alkaline Phosphatase Total Protein Albumin 02/20/22 02/20/22 02/21/22 04:23 04:23 09:50 WBC 13.1 H RBC 5.36 H Hgb Hct MCV 73 L MCH 22 L MCHC 31 L RDW 18.4 H Lymph % (Auto) Moore % (Auto) Lymph # (Auto) Moore # (Auto) 1.0 H Seg Neutrophils % Seg Neutrophils # 8.5 H Fibrinogen 89 L* ABG pH ABG pO2 ABG Hemoglobin Oxyhemoglobin Potassium Chloride Carbon Dioxide Creatinine 0.5 L Glucose 107 H Alkaline Phosphatase Total Protein Albumin 02/21/22 02/21/22 02/22/22 09:50 09:50 03:30 WBC 11.7 H RBC 5.16 H Hgb 11.4 L Hct MCV 73 L MCH 22 L MCHC 31 L RDW 18.5 H Lymph % (Auto) Moore % (Auto) Lymph # (Auto) Moore # (Auto) Seg Neutrophils % Seg Neutrophils # Fibrinogen 100 L* ABG pH ABG pO2 ABG Hemoglobin Oxyhemoglobin Potassium Chloride Carbon Dioxide Creatinine 0.7 L Glucose Alkaline Phosphatase Total Protein Albumin 02/22/22 02/22/22 02/23/22 03:30 10:11 04:08 WBC 11.4 H RBC Hgb 10.5 L Hct 33.9 L MCV 72 L MCH 22 L MCHC 31 L RDW 19.3 H Lymph % (Auto) Moore % (Auto) Lymph # (Auto) Moore # (Auto) Seg Neutrophils % Seg Neutrophils # Fibrinogen 114 L* ABG pH ABG pO2 ABG Hemoglobin Oxyhemoglobin Potassium Chloride Carbon Dioxide Creatinine 0.5 L Glucose Alkaline Phosphatase Total Protein 5.8 L Albumin 02/23/22 02/24/22 02/24/22 04:08 04:03 04:03 WBC RBC Hgb 10.3 L Hct 33.2 L MCV 72 L MCH 22 L MCHC 31 L RDW 19.0 H Lymph % (Auto) Moore % (Auto) Lymph # (Auto) Moore # (Auto) Seg Neutrophils % Seg Neutrophils # Fibrinogen 68 L* ABG pH ABG pO2 ABG Hemoglobin Oxyhemoglobin Potassium Chloride Carbon Dioxide Creatinine 0.5 L Glucose Alkaline Phosphatase 23 L Total Protein 5.2 L Albumin 02/24/22 04:03 WBC RBC Hgb Hct MCV MCH MCHC RDW Lymph % (Auto) Moore % (Auto) Lymph # (Auto) Moore # (Auto) Seg Neutrophils % Seg Neutrophils # Fibrinogen ABG pH ABG pO2 ABG Hemoglobin Oxyhemoglobin Potassium Chloride Carbon Dioxide Creatinine 0.5 L Glucose Alkaline Phosphatase Total Protein Albumin Allied health notes reviewed: nursing
[2022-02-25] MEDS: ENOXAPARIN 40 MG/0.4 ML INJ SUB-Q SCH (22:36)
[2022-02-25] MEDS ORDERED: MYCOPHENOLATE 250 MG CAP PO ONE (23:00)
[2022-02-25] MEDS: MELATONIN 5 MG TAB PO PRN (23:41)
--- NOTE | 2022-02-26 06:57 | Progress Note ---
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 He was passing through [place] when symptoms started - S/p emergent intubation by anethesia - CT chest w con showed no evidence of thymoma - Neurology consulted, appreciated recommendations - Resumed home meds: Cellcept, Mestinon, and PO Prednisone - Completed X 5 days of IVIG - Plasma exchange initiated on 02/16, Received X2 treament. For a total of 5 exchanges to be completed over 9 days. - CCM also on consult, appreciated recommendations - Patient reported that his neurologist in [place] is Dr. Billie Delgado - Transfer to [facility] was declined, no available ICU beds at this time. They recommend continuing IVIG and possible plasma exchange -Plasmapheresis being done today and FFP's were ordered as fibrinogen is low #Acute Hypoxemic Respiratory Failure #Probable ANTON- On CPAP at home #Former Smoker - most likely related to MG crisis - S/p emergent intubation by anesthesia on 02/07 for airway protection - 02/09 s/p extubation - Stable on RA this am - CCM consulted, appreciate recommendations - Completed X5 days of IVIG - Continue plasma exchange and IS ordered - Continue Bipap at night - Aspiration precaution HOB above 30 - PRN O2 supplementation as needed - Continue SPO2 monitoring for SPO2 goal above 92% #Hepatic Hemangiomas - noted fro CT chest w/o con - Stable, LFTs within normal range - Outpatient follow up for US and further workups #Obesity - Balanced diet, increase physical activity discharge, outpatient pulmonary follow-up for sleep study, weight reduction. #GI/DVT Prophylaxis - PPI- Pepcid - Lovenox SubQ - SCD to bilateral lower extremities while in bed #Advance Care Planning - Disease education data, care plan, diagnoses, and prognosis were discussed with patient at the bedside. Patient is a Full code. Patient acknowledged understanding and agreement with current care plan. - Patient reported in case of an emergency and he is unable to make his own decision, his NOK is his aunt who resides in [place], [place]. Heike Araujo, phone# The high probability of a clinically significant, sudden or life threatening deterioration of the [multiple] system(s) required my full and direct attention, intervention and personal management. The aggregate critical care time was [60] minutes. This time is in addition to time spent performing reported procedures but includes the following: [x] Data Review and interpretation [x] Patient assessment and monitoring of vital signs [x] Documentation [x] Medication orders and management Subjective Date of service: 02/25/22 Principal diagnosis: Myasthenic crisis; Obesity; Possible NATON/OHS; Blurry vision; Hypokalemia Interval history: This is a 36-year-old male with known past medical history of obesity and myasthenia gravis admitted for myasthenia gravis crisis. Hospital Course to Date: 02/07: S/p X1 dose of IV IG overnight, patient reported feeling much better and stronger this am, moving all extremities. Plan to wean off Bipap this am. Okay to start a diet if patient pass bedside swallow. D/W CCM plan for CT chest w con tomorrow to r/o thymoma. Neurology consulted. 02/08: S/p emergent intubation by anethesia yesterday. Now intubated and sedated, RASS -2. Neurology recommendations noted. Resumed home meds. Will wean off sedation this am for possible SAT/SBT. CT chest also noted with no evidence of thymoma. Continue IVIG. Attending received call back from [facility]. Transfer was declined, no available ICU beds at this time. They recommend continuing IVIG and possible plasma exchange. Awaiting on Neurology final recommendations. 02/09: S/p Extubation this am. Desated to 85% on 3L NC, SPO2 improved to 88% on 8L NC. This am CXR noted, worsen opacity of the left side. CCM at the bedside, X1 dose of IV Lasix ordered and place patient on Bipap. Low Threshold for reintubation. Plan of care and the high probability for reintubation was discussed with patient at the bedside. Patient verbalized understanding and agree with current care plan. Continue IVIG, Awaiting on Neurology final recommendations. 02/10: Tolerated Bipap, now on 2L NC this am, SPO2 at 100%. No s/s of any acute respiratory distress noted. This am CXR also noted with significant improvement. Continue IVIGm and Bipap at night. Incentive Spirometer also ordered. advance diet as tolerated. PT/OT/Speech consulted. 02/11: Completed x5days of IVIG overnight. Stable on RA, still complaining of generalized weakness, other stable. Diet advanced to solid this am, patient is tolerating it. Continue IS and Bipap at night. Encourage mobility as tolerated, PT/OT/Speech consult pending. 02/12: CPAP prn, currently on RA. Improved strength to BLE and BUE per patient. 02/13: Increased weakness reported on encounter. increased steroid dose to prednisone 40 mg po daily. Continue pyridostigmine and cellcept. Possible d/c tomorrow. 02/14: Weakness improved however still continues to have difficulty with strength. Still has right eye lid droop. Patient increased to prednisone 60 mg p o daily. 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 Pt recommended home with home health care PT. Ambulation is challenging as patient requires a rolling walker. 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 Patient is not a resident of [place]. States his home state is [place]. He has a sister in [place] who's address he uses for mailing purposes. Will work with CM to coordinate placement. 02/15: worsened strength. Admits to dysphagia and shortness of breath today. Chintan patterson worsening symptmology transferring back to ICU for close monitoring. Plasma exchange ordered, first tx tomorrow, coordinated with Dr Katya Manley. Will place vascat today/tomorrow AM for exchanges. Steroid dose increased to Prednisone 80 mg po daily in interim. Will attempt to call neurologist tomorrow AM. 02/16: Plan for plasma exchange today. Labs reviewed, cbc/bmp/fibrinogen all unremarkable. Trialysis catheter placed, pt tolerated procedure well. Taryn Manley will be here today do 4L exchange. A total of 5 exchanges will be completed over 9 days. A total of 20 L 5% albumin will be needed, pharmacy was notified yesterday of this. Continue prednisone 80 mg po daily dose. 02/17: No overnight events. No acute complaints. Tolerated PLEX well. Continue steroids and will follow for symptom improvement. 02/18: Plex tx today. XR ordered due to severe rib pain, no rib fx ID. Will continue to follow for sx improvement. 02/19: Doing much better this am. OOB and sitting up in the chair this am, stable on RA. Still complaining of generalized but reported feeling better. Continue plasma exchange and PO prednisone, cellcept, and Mycophenolate. Continue PT/OT. 02/20: Patient seen and examined, clinically showing some improvement, will continue on current Prednisone Dose, patients fibrinogen is lower than 100, we do not have plasma inhouse, patient will undergo PLEX with Albumin and recieve Cyroprecipitated (Ordered) after per the [facility] team. Continue to monitor NIF Continue IMCU care in this critically ill patient. 02/21: Tolerated PLEX yesterday, Fibrinogen improved to 100. Patient has leukocytosis today without fever, no new neuro deficits reported today. Will request Neuro-revaluation. Case management continues to work on safe discharge plan. Plan discussed with the patient. Dispo based on evaluation by Neuro 02/22: Patient seen and examined today, awaiting 4/5 PLEX therapy, awaiting Neurology re-evaluation. Discussed with case management and patient about discharge plans. 02/23: Patient seen and examined, Neurology input noted: change mestinon from 180 mg po qday to 60 mg po tid; prednisone from 80 mg po qday to 40 mg po qday; continue cellcept (per home regimen); plex 4/5 ongoing at bedside today; pt/ot/st evaluation/monitoring; f/u established neurologist within 2 weeks post- discharge. Patient can be discharged after THE LAST PLEX TOMORROW. 02/24/2022 Patient receiving plasma exchange and FFP's 02/25/2022 Patient finished course of plasma exchanges and FFP's Patient to be tapered on prednisone from 80 mg Had extensive discussion with the patient Patient lives in [place] and is on Mestinon and prednisone Patient is willing to fly back to [place] and follow-up with his PCP Patient to be discharged on prednisone tapering dose 60 mg for 5 days 40 mg for 5 days 20 mg for 5 days and then continue at 10 mg Objective - Constitutional Vitals: Vital Signs - 12hr 02/25/22 02/25/22 02/25/22 20:35 22:00 22:35 Temperature 98.7 F Pulse Rate 65 Respiratory 18 Rate Blood Pressure [Left] Blood Pressure 150/70 [Right] O2 Sat by Pulse 97 98 100 Oximetry 02/26/22 02/26/22 01:02 04:58 Temperature 97.4 F L Pulse Rate 55 L 53 L Respiratory 16 18 Rate Blood Pressure 121/74 [Left] Blood Pressure [Right] O2 Sat by Pulse 100 100 Oximetry General appearance: Present: no acute distress, well-nourished - EENT Eyes: PERRL, EOM intact ENT: hearing intact, clear oral mucosa Ears: bilateral: normal - Neck Neck: supple, normal ROM - Respiratory Respiratory effort: normal Respiratory: bilateral: CTA - Breasts Breasts: normal - Cardiovascular Heart rate: 78 Rhythm: regular Heart Sounds: Present: S1 & S2. Absent: gallop, rub Extremities: pulses intact, No edema, normal color, Full ROM - Gastrointestinal General gastrointestinal: Present: soft, non-tender, non-distended, normal bowel sounds - Genitourinary Male genitourinary: normal - Integumentary Integumentary: clear, warm, dry - Musculoskeletal Musculoskeletal: 1, strength equal bilaterally - Neurologic Neurologic: moves all extremities - Psychiatric Psychiatric: memory intact, appropriate mood/affect, intact judgment & insight - Labs CBC & Chem 7: 02/24/22 04:03 02/24/22 04:03
[2022-02-26] MEDS: PYRIDOSTIGMINE BROMIDE 60 MG TAB PO SCH ×3 (08:00→20:59)
--- NOTE | 2022-02-26 08:59 | Progress Note ---
Assessment and Plan Assessment and plan: This is a 36-year-old male with known past medical history of obesity and myasthenia gravis admitted for myasthenia gravis crisis. 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 He was passing through [place] when symptoms started - S/p emergent intubation by anethesia - CT chest w con showed no evidence of thymoma - Neurology consulted, appreciated recommendations - Resumed home meds: Cellcept, Mestinon, and PO Prednisone - Completed X 5 days of IVIG - Plasma exchange initiated on 02/16, Received X2 treament. For a total of 5 exchanges to be completed over 9 days. - CCM also on consult, appreciated recommendations - Patient reported that his neurologist in [place] is Dr. Billie Delgado - Transfer to [facility] was declined, no available ICU beds at this time. They recommend continuing IVIG and possible plasma exchange -Plasmapheresis being done today and FFP's were ordered as fibrinogen is low #Acute Hypoxemic Respiratory Failure #Probable ANTON- On CPAP at home #Former Smoker - most likely related to MG crisis - S/p emergent intubation by anesthesia on 02/07 for airway protection - 02/09 s/p extubation - Stable on RA this am - CCM consulted, appreciate recommendations - Completed X5 days of IVIG - Continue plasma exchange and IS ordered - Continue Bipap at night - Aspiration precaution HOB above 30 - PRN O2 supplementation as needed - Continue SPO2 monitoring for SPO2 goal above 92% #Hepatic Hemangiomas - noted fro CT chest w/o con - Stable, LFTs within normal range - Outpatient follow up for US and further workups #Obesity - Balanced diet, increase physical activity discharge, outpatient pulmonary follow-up for sleep study, weight reduction. #GI/DVT Prophylaxis - PPI- Pepcid - Lovenox SubQ - SCD to bilateral lower extremities while in bed Hospital Course to Date: 02/07: S/p X1 dose of IV IG overnight, patient reported feeling much better and stronger this am, moving all extremities. Plan to wean off Bipap this am. Okay to start a diet if patient pass bedside swallow. D/W CCM plan for CT chest w con tomorrow to r/o thymoma. Neurology consulted. 02/08: S/p emergent intubation by anethesia yesterday. Now intubated and sedated, RASS -2. Neurology recommendations noted. Resumed home meds. Will wean off sedation this am for possible SAT/SBT. CT chest also noted with no evidence of thymoma. Continue IVIG. Attending received call back from [facility]. Transfer was d eclined, no available ICU beds at this time. They recommend continuing IVIG and possible plasma exchange. Awaiting on Neurology final recommendations. 02/09: S/p Extubation this am. Desated to 85% on 3L NC, SPO2 improved to 88% on 8L NC. This am CXR noted, worsen opacity of the left side. CCM at the bedside, X1 dose of IV Lasix ordered and place patient on Bipap. Low Threshold for reintubation. Plan of care and the high probability for reintubation was discussed with patient at the bedside. Patient verbalized understanding and agree with current care plan. Continue IVIG, Awaiting on Neurology final recommendations. 02/10: Tolerated Bipap, now on 2L NC this am, SPO2 at 100%. No s/s of any acute respiratory distress noted. This am CXR also noted with significant improvement. Continue IVIGm and Bipap at night. Incentive Spirometer also ordered. advance diet as tolerated. PT/OT/Speech consulted. 02/11: Completed x5days of IVIG overnight. Stable on RA, still complaining of generalized weakness, other stable. Diet advanced to solid this am, patient is tolerating it. Continue IS and Bipap at night. Encourage mobility as tolerated, PT/OT/Speech consult pending. 02/12: CPAP prn, currently on RA. Improved strength to BLE and BUE per patient. 02/13: Increased weakness reported on encounter. increased steroid dose to prednisone 40 mg po daily. Continue pyridostigmine and cellcept. Possible d/c tomorrow. 02/14: Weakness improved however still continues to have difficulty with stren gth. Still has right eye lid droop. Patient increased to prednisone 60 mg po daily. He has had 4 myasthenia gravis crises in the past and was initiated on high dose steroids with longterm taper by her OP neurologist. Pt recommended home with home health care PT. Ambulation is challenging as patient requires a rolling walker. 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 Patient is not a resident of [place]. States his home state is [place]. He has a sister in [place] who's address he uses for mailing purposes. Will work with CM to coordinate placement. 02/15: worsened strength. Admits to dysphagia and shortness of breath today. Given worsening symptmology transferring back to ICU for close monitoring. Plasma exchange ordered, first tx tomorrow, coordinated with Dr Katya Centeno [place]. Will place vascath today/tomorrow AM for exchanges. Steroid dose increased to Prednisone 80 mg po daily in interim. Will attempt to call neurologist tomorrow AM. 02/16: Plan for plasma exchange today. Labs reviewed, cbc/bmp/fibrinogen all unremarkable. Trialysis catheter placed, pt tolerated procedure well. Taryn Manley will be here today do 4L exchange. A total of 5 exchanges will be completed over 9 days. A total of 20 L 5% albumin will be needed, pharmacy was notified yesterday of this. Continue prednisone 80 mg po daily dose. 02/17: No overnight events. No acute complaints. Tolerated PLEX well. Continue steroids and will follow for symptom improvement. 02/18: Plex tx today. XR ordered due to severe rib pain, no rib fx ID. Will continue to follow for sx improvement. 02/19: Doing much better this am. OOB and sitting up in the chair this am, stable on RA. Still complaining of generalized but reported feeling better. Continue plasma exchange and PO prednisone, cellcept, and Mycophenolate. Continue PT/OT. 02/20: Patient seen and examined, clinically showing some improvement, will continue on current Prednisone Dose, patients fibrinogen is lower than 100, we do not have plasma inhouse, patient will undergo PLEX with Albumin and recieve Cyroprecipitated (Ordered) after per the [facility] team. Continue to monitor NIF Continue IMCU care in this critically ill patient. 02/21: Tolerated PLEX yesterday, Fibrinogen improved to 100. Patient has leukocytosis today without fever, no new neuro deficits reported today. Will request Neuro-revaluation. Case management continues to work on safe discharge plan. Plan discussed with the patient. Dispo based on evaluation by Neuro 02/22: Patient seen and examined today, awaiting 4/5 PLEX therapy, awaiting Neurology re-evaluation. Discussed with case management and patient about discharge plans. 02/23: Patient seen and examined, Neurology input noted: change mestinon from 180 mg po qday to 60 mg po tid; prednisone from 80 mg po qday to 40 mg po qday; continue cellcept (per home regimen); plex 4/5 ongoing at bedside today; pt/ot/st evaluation/monitoring; f/u established neurologist within 2 weeks post- discharge. Patient can be discharged after THE LAST PLEX TOMORROW. 02/24/2022 Patient receiving plasma exchange and FFP's 02/25/2022 Patient finished course of plasma exchanges and FFP's Patient to be tapered on prednisone from 80 mg Had extensive discussion with the patient Patient lives in [place] and is on Mestinon and prednisone Patient is willing to fly back to [place] and follow-up with his PCP Patient to be discharged on prednisone tapering dose 60 mg for 5 days 40 mg for 5 days 20 mg for 5 days and then continue at 10 mg 02/26/2022. Patient completed plasma exchange and FFP. Continue prednisone taper. Apparently, pulmonary wants to continue to monitor the patient for 24 hours. Anticipate discharge later today or in a.m. History Interval history: No new issues overnight Hospitalist Physical - Constitutional Vitals: Temp Pulse Resp BP Pulse Ox 98.7 F 72 20 113/70 98 02/26/22 08:42 02/26/22 08:42 02/26/22 08:42 02/26/22 08:42 02/26/22 08:42 General appearance: Present: no acute distress, well-nourished - EENT Eyes: Present: PERRL, EOM intact ENT: hearing intact, clear oral mucosa, dentition normal - Neck Neck: Present: supple, normal ROM - Respiratory Respiratory effort: normal Respiratory: bilateral: CTA - Cardiovascular Rhythm: regular Heart Sounds: Present: S1 & S2. Absent: gallop, rub - Extremities Extremities: no ischemia, No edema, Full ROM - Abdominal General gastrointestinal: soft, non-tender, non-distended, normal bowel sounds - Integumentary Integumentary: Present: clear, warm, dry - Neurologic Neurologic: CNII-XII intact, moves all extremities Results - Labs CBC & Chem 7: 02/24/22 04:03 02/24/22 04:03 Labs: Laboratory Last Values WBC 10.4 K/mm3 (4.5-11.0) 02/24/22 04:03 RBC 4.60 M/mm3 (3.65-5.03) 02/24/22 04:03 Hgb 10.3 gm/dl (11.8-15.2) L 02/24/22 04:03 Hct 33.2 % (35.5-45.6) L 02/24/22 04:03 MCV 72 fl (84-94) L 02/24/22 04:03 MCH 22 pg (28-32) L 02/24/22 04:03 MCHC 31 % (32-34) L 02/24/22 04:03 RDW 19.0 % (13.2-15.2) H 02/24/22 04:03 Plt Count 235 K/mm3 (140-440) 02/24/22 04:03 Lymph % (Auto) 27.4 % (13.4-35.0) 02/21/22 09:50 [place] % (Auto) 7.3 % (0.0-7.3) 02/21/22 09:50 Eos % (Auto) 0.1 % (0.0-4.3) 02/21/22 09:50 Baso % (Auto) 0.2 % (0.0-1.8) 02/21/22 09:50 Lymph # (Auto) 3.6 K/mm3 (1.2-5.4) 02/21/22 09:50 [place] # (Auto) 1.0 K/mm3 (0.0-0.8) H 02/21/22 09:50 Eos # (Auto) 0.0 K/mm3 (0.0-0.4) 02/21/22 09:50 Baso # (Auto) 0.0 K/mm3 (0.0-0.1) 02/21/22 09:50 Seg Neutrophils % 65.0 % (40.0-70.0) 02/21/22 09:50 Seg Neutrophils # 8.5 K/mm3 (1.8-7.7) H 02/21/22 09:50 Fibrinogen 68 mg/dl (211-480) L* 02/24/22 04:03 ABG pH 7.333 pH Units (7.350-7.450) L 02/08/22 09:20 ABG pCO2 48.2 mm Hg 02/08/22 09:20 ABG pO2 114.7 mm Hg (80.0-90.0) H 02/08/22 09:20 ABG HCO3 25.0 mmol/L (20.0-26.0) 02/08/22 09:20 ABG O2 Saturation 97.9 % (95.0-99.0) 02/08/22 09:20 ABG O2 Content 15.1 (0.0-44) 02/08/22 09:20 ABG Base Excess -1.1 mmol/L (-2.0-3.0) 02/08/22 09:20 ABG Hemoglobin 11.1 gm/dl (14.0-18.0) L 02/08/22 09:20 ABG Carboxyhemoglobin 1.4 % (0.0-5.0) 02/08/22 09:20 ABG Methemoglobin 0.5 % (0.0-1.5) 02/08/22 09:20 Oxyhemoglobin 96.1 % (95.0-99.0) 02/08/22 09:20 FiO2 35 % 02/08/22 09:20 Sodium 141 mmol/L (137-145) 02/24/22 04:03 Potassium 3.8 mmol/L (3.6-5.0) 02/24/22 04:03 Chloride 106.2 mmol/L (98-107) 02/24/22 04:03 Carbon Dioxide 27 mmol/L (22-30) 02/24/22 04:03 Anion Gap 12 mmol/L 02/24/22 04:03 BUN 10 mg/dL (9-20) 02/24/22 04:03 Creatinine 0.5 mg/dL (0.8-1.3) L 02/24/22 04:03 Estimated GFR > 60 ml/min 02/24/22 04:03 BUN/Creatinine Ratio 20 % 02/24/22 04:03 Glucose 81 mg/dL (75-100) 02/24/22 04:03 Calcium 8.8 mg/dL (8.4-10.2) 02/24/22 04:03 Total Bilirubin 0.30 mg/dL (0.1-1.2) 02/23/22 04:08 AST 9 units/L (5-40) 02/23/22 04:08 ALT 11 units/L (7-56) 02/23/22 04:08 Alkaline Phosphatase 23 units/L (35-129) L 02/23/22 04:08 Total Protein 5.2 g/dL (6.3-8.2) L 02/23/22 04:08 Albumin 4.8 g/dL (3.9-5) 02/23/22 04:08 Albumin/Globulin Ratio 12.0 % 02/23/22 04:08 Actin IgG Antibody <20 U (<20) 02/16/22 04:52 Blood Type O POSITIVE 02/24/22 11:33 Antibody Screen Negative 02/24/22 11:33 [place]/IV: Voiding Method Toilet Active Medications - Current Medications Current Medications: Generic Name Dose Route Start Last Admin Trade Name Freq PRN Reason Stop Dose Admin Acetaminophen 650 mg 02/06/22 15:00 02/25/22 23:41 Acetaminophen 325 Mg Tab PO 650 mg Q6H PRN Administration Pain MILD(1-3)/Fever >100.5/[place] Albuterol 2.5 mg 02/06/22 15:00 02/15/22 21:54 Albuterol 2.5 Mg/3 Ml Nebu IH 2.5 mg Q3HRT PRN Administration Shortness Of Breath Diphenhydramine HCl 25 mg 02/15/22 14:06 02/16/22 11:49 Diphenhydramine 50 Mg/Ml Vial IV 25 mg Q6H PRN Administration Itching Enoxaparin Sodium 40 mg 02/06/22 22:00 02/25/22 22:36 Enoxaparin 40 Mg/0.4 Ml Inj SUB-Q 40 mg QDAY@2200 NETSOR Administration Protocol Famotidine 20 mg 02/12/22 10:00 02/25/22 22:36 Famotidine 20 Mg Tab PO 20 mg BID NESTOR Administration Hydrophilic Ointment 1 applic 02/07/22 10:55 Lip Therapy Vaseline TP Q2HR PRN Dry Lips Melatonin 5 mg 02/21/22 01:15 02/25/22 23:41 Melatonin 5 Mg Tab PO 5 mg QHS PRN Administration Sleep Multi-Ingred Cream/Lotion/Oil/Oint 1 applic 02/07/22 10:55 Mineral Oil/Petrolatum, White Ophth Oint 3.5 Gm OU Q4HR PRN Dry Eye(s) Mycophenolate Mofetil 1,000 mg 02/21/22 10:00 02/25/22 23:37 Mycophenolate 500 Mg Tab PO Not Given BID NESTOR Ondansetron HCl 4 mg 02/08/22 17:00 02/20/22 23:58 Ondansetron 4 Mg/2 Ml Inj IV 4 mg Q8H PRN Administration Nausea And Vomiting Oxycodone/Acetaminophen 1 tab 02/06/22 15:00 02/24/22 12:15 Oxycodone /Acetaminophen 5-325mg Tab PO 1 tab Q16H PRN Administration Pain, Moderate (4-6) Prednisone 40 mg 02/23/22 10:00 02/25/22 10:13 Prednisone 20 Mg Tab PO 40 mg QDAY NESTOR Administration Pyridostigmine [place] 60 mg 02/23/22 08:00 02/25/22 22:30 Pyridostigmine [place] 60 Mg Tab PO 60 mg TID NESTOR Administration Senna/Docusate Sodium 1 tab 02/12/22 10:00 02/25/22 22:36 Sennosides/Docusate Sodium 8.6/50 Mg Tab PO 1 tab BID NESTOR Administration Sodium Chloride 10 ml 02/06/22 22:00 02/25/22 22:38 Sodium Chloride 0.9% 10 Ml Flush Syringe IV 10 ml BID NESTOR Administration Sodium Chloride 10 ml 02/06/22 13:59 Sodium Chloride 0.9% 10 Ml Flush Syringe IV PRN PRN LINE FLUSH Nutrition/Malnutrition Assess - Dietary Evaluation Nutrition/Malnutrition Findings: Nutrition Notes Start: 02/07/22 13:09 Freq: Status: Active Protocol: Document 02/20/22 12:04 PRADEEP (Rec: 02/20/22 12:23 PRADEEP [id number]) Nutrition Notes Initial or Follow up Reassessment Current Diagnosis Respiratory Failure Other Pertinent Diagnosis Myasthenia Gravis. Current Diet Regular Diet (since L 02/19). Labs/Tests 02/20: Crea 0.5, Glu 107. Pertinent Medications 02/20: Nutritionally unremarkable. Height 5 ft 10 in Weight 102 kg Story Body Weight (kg) 75.45 BMI 32.2 Weight change and time frame Body weight on chart (192 Kg) is wrong. Unable to reach RN over the phone at this time. Weight Status Obese Subjective/Other Information RD consult for routine F/U on dietary advancement. Pt advanced to Regular Diet, Pt's PO intake of meals has been Good (100%), according to ADL notes. Pt is on NIV/Bi-PaP+, O2 saturation @ 100%, according top Physical Assessment History notes. 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 Patient's swallowing function has declined since he was discharged from this service. Laryngeal elevation is reduced with slower oral transit time and aspiration with thins and semi solids. Recommend a pureed diet with nectar thickened liquids. Will continue to follow. Informed his nurse of findings. - END OF NOTE. Percent of energy/protein needs met: Prescribed Regular Diet provides for energy/protein needs (2,289 Kcal/89 g) during LOS. Burn Absent Trauma Absent GI Symptoms None Food Allergy No Skin Integrity/Comment Assessment WNL. Current % PO Good (75-100%) Minimum of two criteria No Fluid Accumulation N/A Reduced Geriatric Physician Strength N/A (non-severe) Protein-Calorie Malnutrition N\A #1 Nutrition Diagnosis Inadequate oral intake Comments: Pt advanced to Regular Diet, Pt's PO intake of meals has been Good (100%), according to ADL notes. Diagnosis Progress(for reassessment Resolved documentation) Is patient on ventilator? No Is Patient Ambulatory and/or Out of Bed No REE-([facility]-confined to bed) 2349.732 Kcal/Kg value to use for calculation 20 Approximate Energy Requirements Using 2040 kcal/Kg Calculation Used for Recommendations Kcal/kg Additional Notes Protein: 0.8-1 g/Kg AdjBW; 71- 89 g/day. Fluids: 1 ml/Kcal, or as per MD. Nutrition Intervention Change Diet Order: Contrinue Regular Diet. Goal #1 Adjust the dietary intervention to better serve Pt's needs and clinical conditions during LOS. Follow-Up By: 02/27/22 Additional Comments Continue monitoring food tolerance, %PO intake of meals , and BM.
[2022-02-26] MEDS: SENNOSIDES/DOCUSATE SODIUM 8.6/50 MG TAB PO SCH ×2 (10:55→22:00)
[2022-02-26] MEDS: predniSONE 20 MG TAB PO SCH (10:55)
[2022-02-26] MEDS: FAMOTIDINE 20 MG TAB PO SCH ×2 (10:55→22:00)
[2022-02-26] MEDS: MYCOPHENOLATE 500 MG TAB PO SCH ×2 (17:51→22:00)
--- NOTE | 2022-02-26 20:45 | Progress Note ---
Assessment and Plan 36 YO Male with MG currently taking Cellcept, Mycophenolate, and Prednisone presents ED for evaluation. Patient states that he had experienced generalized weakness over the past 1 day with progressive and worsening symptoms over the same timeframe. Patient states that he was able to walk earlier today but he is unable to walk. Patient also acknowledges upper extremity weakness as well as difficulty speaking. EMS was notified and upon arrival the patient was found to be in distress and subsequently transported to [facility] for further care and evaluation of the aforementioned symptoms. The patient was seen and evaluated in the emergency department. All lab and imaging studies reviewed. Patient found to have myasthenia gravis crisis with increased risk for worsening symptoms as well as development of acute hypoxemic respiratory failure. Patient placed on noninvasive positive pressure ventilation in the emergency department and admitted to ICU. IVIG ordered in the emergency department. Patient denies fever, chills, chest pain, palpitation productive cough, skin rash and recent Contact, known exposure to COVID-19. Patient eventually intubated and placed on mechanical ventilation. Patient extubated now. Patient has history vaping 2 times a day x 14 years. Stopped vaping 3 years ago. Denies alcohol abuse. Used Marijuna in his teenage years. Not used Marijuana for long time. 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 Not . Has no children. No known drug allergies. Patient has history of Sleep apnea. Uses CPAP 12 cm H2O during night time. Patient moved to medical floor. Patient Obese, awake, Resting on room air. O2 saturation 97%. No acute respiratory distress at rest. Patient still complaining Generalized weakness. Patient finished course of PlasmaPheresis. Patient afebrile. Mild leukocytosis, Blood pressure 110/68, rate 67 respirations 20. Chest xray 02/10/22 Previous density of the left has almost completely cleared with only minimal basilar atelectasis remaining. Right lung field clear. No pneumothorax. CT scan of chest 02/08/[address] evidence of thymoma. Hypoattenuating lesions of the liver statistically reflect hepatic hemangiomas. One of these lesions demonstrate characteristic peripheral puddling of contrast, the second does not clearly demonstrate specific pattern of enhancement. Ultrasound targeting these lesions may be useful for further characterization and confirmation of hemangioma. Moderate subsegmental atelectasis of the bilateral lungs. Satisfactory positioning of endotracheal tube and esophagogastric tube. Chest xray done 02/17/22 reported No significant pulmonary or pleural abnormality. No pneumothorax. Left rib series done on 02/18/22 reported he left ribs appear unremarkable. There is no visible left rib fracture. No acute pulmonary disease. Patient is on Po Prednisone, Albuterol inhaler, S/C Lovenox and famotidine. I - Patient Problems (1) Acute hypoxemic respiratory failure Current Visit: Yes Status: Acute Plan to address problem: CPAP during night time. Continue prednisone. Continue S/C Lovenox. Continue famotidine. Albuterol inhaler prn for shortness of breath. (2) Obesity Current Visit: Yes Status: Acute Qualifiers: Body mass index: BMI 33.0-33.9 Plan to address problem: Counseled to loose weight Exercise and diet. (3) Sleep apnea Current Visit: Yes Status: Acute Plan to address problem: Patient says he has history of sleep apnea. No sleep study results available at this time. Continue CPAP as she is using at home. Recommend to loose weight. Explained sleep hygiene. Recommend not to drive or operate heavy equipment with sleepiness. Avoid alcohol, sedatives and Narcotics If sleep study is while back, recommend to repeat sleep study as out patient. (4) Myasthenia gravis Current Visit: Yes Status: Acute Plan to address problem: Patient finished course of plasmapheresis. Management as per primary care and neurology. Subjective Date of service: 02/26/22 Principal diagnosis: Myasthenic crisis; Obesity; Possible ANTON/OHS; Blurry vision; Hypokalemia Interval history: 36 YO Male with MG currently taking Cellcept, Mycophenolate, and Prednisone presents ED for evaluation. Patient states that he had experienced generalized weakness over the past 1 day with progressive and worsening symptoms over the same timeframe. Patient states that he was able to walk earlier today but he is unable to walk. Patient also acknowledges upper extremity weakness as well as difficulty speaking. EMS was notified and upon arrival the patient was found to be in distress and subsequently transported to [facility] for further care and evaluation of the aforementioned symptoms. The patient was seen and evaluated i n the emergency department. All lab and imaging studies reviewed. Patient found to have myasthenia gravis crisis with increased risk for worsening symptoms as well as development of acute hypoxemic respiratory failure. Patient placed on noninvasive positive pressure ventilation in the emergency department and admitted to ICU. IVIG ordered in the emergency department. Patient denies fever, chills, chest pain, palpitation productive cough, skin rash and recent Contact, known exposure to COVID-19. Patient eventually intubated and placed on mechanical ventilation. Patient extubated now. Patient has history vaping 2 times a day x 14 years. Stopped vaping 3 years ago. Denies alcohol abuse. Used Marijuna in his teenage years. Not used Marijuana for long time. 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 Not . Has no children. No known drug allergies. Patient has history of Sleep apnea. Uses CPAP 12 cm H2O during night time. Patient moved to medical floor. Patient Obese, awake, Resting on room air. O2 saturation 97%. No acute respiratory distress at rest. Patient still complaining Generalized weakness. Patient finished course of PlasmaPheresis. Patient afebrile. Mild leukocytosis, Blood pressure 110/68, rate 67 respirations 20. Chest xray 02/10/22 Previous density of the left has almost completely cleared with only minimal basilar atelectasis remaining. Right lung field clear. No pneumothorax. CT scan of chest 02/08/[address] evidence of thymoma. Hypoattenuating lesions of the liver statistically reflect hepatic hemangiomas. One of these lesions demonstrate characteristic peripheral puddling of contrast, the second does not clearly demonstrate specific pattern of enhancement. Ultrasound targeting these lesions may be useful for further characterization and confirmation of hemangioma. Moderate subsegmental atelectasis of the bilateral lungs. Satisfactory positioning of endotracheal tube and esophagogastric tube. Chest xray done 02/17/22 reported No significant pulmonary or pleural abnormality. No pneumothorax. Left rib series done on 02/18/22 reported he left ribs appear unremarkable. There is no visible left rib fracture. No acute pulmonary disease. Patient is on Po Prednisone, Albuterol inhaler, S/C Lovenox and famotidine. Objective Vital Signs - 12hr 02/26/22 02/26/22 10:00 18:48 Pulse Rate 79 Respiratory 20 20 Rate Blood Pressure 124/77 [Right] O2 Sat by Pulse 98 98 Oximetry Constitutional: no acute distress, alert, other (young obese male without increased respiratory effort at rest) Eyes: non-icteric ENT: oropharynx moist Neck: supple, no lymphadenopathy, no JVD, other (large circumference) Effort: normal Ascultation: Bilateral: diminished breath sounds Percussion: Bilateral: not dull Cardiovascular: regular rate and rhythm Gastrointestinal: normoactive bowel sounds, soft, non-tender, non-distended (protuberant) Integumentary: normal Extremities: no cyanosis, no edema, pulses normal, no ischemia or petechiae Neurologic: non-focal exam (grossly), pupils equal and round, CN II-XII normal, other (weak (3-4/5)) Psychiatric: mood appropriate, affect normal CBC and BMP: 02/24/22 04:03 02/24/22 04:03 ABG, PT/INR, D-dimer: ABG ABG pH 7.333 pH Units (7.350-7.450) L 02/08/22 09:20 ABG pCO2 48.2 mm Hg 02/08/22 09:20 ABG pO2 114.7 mm Hg (80.0-90.0) H 02/08/22 09:20 ABG O2 Saturation 97.9 % (95.0-99.0) 02/08/22 09:20 Abnormal lab findings: Abnormal Labs 02/06/22 02/06/22 02/06/22 12:39 12:39 13:59 WBC RBC 5.75 H Hgb Hct MCV 74 L MCH 23 L MCHC 30 L RDW 16.9 H Lymph % (Auto) 6.4 L [place] % (Auto) Lymph # (Auto) 0.5 L [place] # (Auto) Seg Neutrophils % 89.3 H Seg Neutrophils # Fibrinogen ABG pH ABG pO2 ABG Hemoglobin 12.6 L Oxyhemoglobin Potassium 3.5 L Chloride 109.1 H Carbon Dioxide 20 L Creatinine 0.7 L Glucose 113 H Alkaline Phosphatase Total Protein Albumin 02/07/22 02/07/22 02/08/22 04:15 12:00 04:23 WBC RBC 5.10 H Hgb 11.5 L 11.0 L Hct MCV 72 L 74 L MCH 23 L 22 L MCHC 30 L RDW 17.3 H 17.1 H Lymph % (Auto) [place] % (Auto) 9.1 H Lymph # (Auto) [place] # (Auto) Seg Neutrophils % Seg Neutrophils # Fibrinogen ABG pH ABG pO2 72.6 L ABG Hemoglobin 12.2 L Oxyhemoglobin 94.4 L Potassium Chloride Carbon Dioxide Creatinine Glucose Alkaline Phosphatase Total Protein Albumin 02/08/22 02/08/22 02/09/22 04:23 09:20 04:50 WBC RBC Hgb 10.4 L Hct 33.7 L MCV 73 L MCH 22 L MCHC 31 L RDW 17.5 H Lymph % (Auto) [place] % (Auto) Lymph # (Auto) [place] # (Auto) Seg Neutrophils % Seg Neutrophils # Fibrinogen ABG pH 7.333 L ABG pO2 114.7 H ABG Hemoglobin 11.1 L Oxyhemoglobin Potassium Chloride 109.3 H Carbon Dioxide Creatinine 0.6 L Glucose Alkaline Phosphatase Total Protein Albumin 02/09/22 02/10/22 02/11/22 04:50 04:50 04:38 WBC 4.4 L 3.3 L RBC Hgb 10.1 L 10.4 L Hct 32.9 L 33.6 L MCV 73 L 73 L MCH 22 L 23 L MCHC 31 L 31 L RDW 17.2 H 17.0 H Lymph % (Auto) [place] % (Auto) Lymph # (Auto) [place] # (Auto) Seg Neutrophils % Seg Neutrophils # Fibrinogen ABG pH ABG pO2 ABG Hemoglobin Oxyhemoglobin Potassium Chloride Carbon Dioxide Creatinine Glucose 107 H Alkaline Phosphatase Total Protein Albumin 02/11/22 02/12/22 02/13/22 04:38 04:25 04:17 WBC 3.7 L 3.5 L RBC Hgb 10.5 L 10.8 L Hct 34.5 L MCV 73 L 73 L MCH 22 L 22 L MCHC 30 L 30 L RDW 16.9 H 17.5 H Lymph % (Auto) [place] % (Auto) Lymph # (Auto) [place] # (Auto) Seg Neutrophils % Seg Neutrophils # Fibrinogen ABG pH ABG pO2 ABG Hemoglobin Oxyhemoglobin Potassium Chloride Carbon Dioxide Creatinine 0.7 L Glucose 101 H Alkaline Phosphatase Total Protein Albumin 02/16/22 02/16/22 02/18/22 04:52 04:52 07:18 WBC RBC Hgb 11.4 L 11.4 L Hct 35.3 L MCV 71 L 72 L MCH 23 L 23 L MCHC RDW 17.4 H 17.3 H Lymph % (Auto) 43.5 H [place] % (Auto) 7.6 H 7.6 H Lymph # (Auto) [place] # (Auto) Seg Neutrophils % 71.5 H Seg Neutrophils # Fibrinogen ABG pH ABG pO2 ABG Hemoglobin Oxyhemoglobin Potassium Chloride Carbon Dioxide Creatinine 0.6 L Glucose Alkaline Phosphatase Total Protein Albumin 3.5 L 02/18/22 02/18/22 02/20/22 07:18 07:18 04:23 WBC RBC 5.22 H Hgb 11.6 L Hct MCV 73 L MCH 22 L MCHC 31 L RDW 18.0 H Lymph % (Auto) [place] % (Auto) Lymph # (Auto) [place] # (Auto) Seg Neutrophils % Seg Neutrophils # Fibrinogen 144 L* ABG pH ABG pO2 ABG Hemoglobin Oxyhemoglobin Potassium Chloride Carbon Dioxide Creatinine 0.5 L Glucose Alkaline Phosphatase Total Protein Albumin 02/20/22 02/20/22 02/21/22 04:23 04:23 09:50 WBC 13.1 H RBC 5.36 H Hgb Hct MCV 73 L MCH 22 L MCHC 31 L RDW 18.4 H Lymph % (Auto) [place] % (Auto) Lymph # (Auto) [place] # (Auto) 1.0 H Seg Neutrophils % Seg Neutrophils # 8.5 H Fibrinogen 89 L* ABG pH ABG pO2 ABG Hemoglobin Oxyhemoglobin Potassium Chloride Carbon Dioxide Creatinine 0.5 L Glucose 107 H Alkaline Phosphatase Total Protein Albumin 02/21/22 02/21/22 02/22/22 09:50 09:50 03:30 WBC 11.7 H RBC 5.16 H Hgb 11.4 L Hct MCV 73 L MCH 22 L MCHC 31 L RDW 18.5 H Lymph % (Auto) [place] % (Auto) Lymph # (Auto) [place] # (Auto) Seg Neutrophils % Seg Neutrophils # Fibrinogen 100 L* ABG pH ABG pO2 ABG Hemoglobin Oxyhemoglobin Potassium Chloride Carbon Dioxide Creatinine 0.7 L Glucose Alkaline Phosphatase Total Protein Albumin 02/22/22 02/22/22 02/23/22 03:30 10:11 04:08 WBC 11.4 H RBC Hgb 10.5 L Hct 33.9 L MCV 72 L MCH 22 L MCHC 31 L RDW 19.3 H Lymph % (Auto) [place] % (Auto) Lymph # (Auto) [place] # (Auto) Seg Neutrophils % Seg Neutrophils # Fibrinogen 114 L* ABG pH ABG pO2 ABG Hemoglobin Oxyhemoglobin Potassium Chloride Carbon Dioxide Creatinine 0.5 L Glucose Alkaline Phosphatase Total Protein 5.8 L Albumin 02/23/22 02/24/22 02/24/22 04:08 04:03 04:03 WBC RBC Hgb 10.3 L Hct 33.2 L MCV 72 L MCH 22 L MCHC 31 L RDW 19.0 H Lymph % (Auto) [place] % (Auto) Lymph # (Auto) [place] # (Auto) Seg Neutrophils % Seg Neutrophils # Fibrinogen 68 L* ABG pH ABG pO2 ABG Hemoglobin Oxyhemoglobin Potassium Chloride Carbon Dioxide Creatinine 0.5 L Glucose Alkaline Phosphatase 23 L Total Protein 5.2 L Albumin 02/24/22 04:03 WBC RBC Hgb Hct MCV MCH MCHC RDW Lymph % (Auto) [place] % (Auto) Lymph # (Auto) [place] # (Auto) Seg Neutrophils % Seg Neutrophils # Fibrinogen ABG pH ABG pO2 ABG Hemoglobin Oxyhemoglobin Potassium Chloride Carbon Dioxide Creatinine 0.5 L Glucose Alkaline Phosphatase Total Protein Albumin Allied health notes reviewed: nursing
[2022-02-26] MEDS: ENOXAPARIN 40 MG/0.4 ML INJ SUB-Q SCH (22:01)
[2022-02-26] MEDS: oxyCODONE /ACETAMINOPHEN 5-325MG TAB PO PRN (22:13)
--- NOTE | 2022-02-27 07:29 | Discharge Summary ---
Providers - Providers Date of Admission: 02/06/22 13:59 Attending physician: MAGDI MALLOY MD 02/06/22 12:34 Consult to Physician [CONS] Stat Comment: Consulting Provider: CHESTER DONALD Physician Instructions: Reason For Exam: Myasthenia gravis crisis 02/07/22 07:16 Consult to Physician [CONS] Routine Comment: Consulting Provider: KARISHMA GANDARA Physician Instructions: Reason For Exam: MYASTENIA GRAVIS 02/07/22 10:55 Consult to Dietitian/Nutrition [CONS] Routine Physician Instructions: Reason For Exam: Reason for Consult: Write/Manage Tube Feeding 02/09/22 09:15 Occupational Therapy Evaluate and Treat [CONS] Routine Comment: Reason For Exam: deconditioning Physical Therapy Evaluation and Treat [CONS] Routine Comment: Reason For Exam: deconditioning Speech Therapy Evaluation and Treat [CONS] Routine Reason For Exam: swallow evaluation 02/15/22 10:52 Speech Therapy Evaluation and Treat [CONS] Stat Reason For Exam: SWALLOW EVAL 02/21/22 17:18 Consult to Physician [CONS] Routine Comment: Consulting Provider: KARISHMA GANDARA Physician Instructions: Reason For Exam: myastenia gravis re-eval Primary care physician: MARTA RUIZ Hospitalization Reason for admission: weakness Condition: Serious Hospital course: Assessment and plan: This is a 36-year-old male with known past medical history of obesity and myasthenia gravis admitted for myasthenia gravis crisis. 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 He was passing through [place] when symptoms started - S/p emergent intubation by anethesia - CT chest w con showed no evidence of thymoma - Neurology consulted, appreciated recommendations - Resumed home meds: Cellcept, Mestinon, and PO Prednisone - Completed X 5 days of IVIG - Plasma exchange initiated on 02/16, Received X2 treament. For a total of 5 exchanges to be completed over 9 days. - [facility] also on consult, appreciated recommendations - Patient reported that his neurologist in [place] is Dr. Billie Delgado - Transfer to [facility] was declined, no available ICU beds at this time. They recommend continuing IVIG and possible plasma exchange -Plasmapheresis being done today and FFP's were ordered as fibrinogen is low #Acute Hypoxemic Respiratory Failure #Probable ANTNO- On CPAP at home #Former Smoker - most likely related to MG crisis - S/p emergent intubation by anesthesia on 02/07 for airway protection - 02/09 s/p extubation - Stable on RA this am - CCM consulted, appreciate recommendations - Completed X5 days of IVIG - Continue plasma exchange and IS ordered - Continue Bipap at night - Aspiration precaution HOB above 30 - PRN O2 supplementation as needed - Continue SPO2 monitoring for SPO2 goal above 92% #Hepatic Hemangiomas - noted fro CT chest w/o con - Stable, LFTs within normal range - Outpatient follow up for US and further workups #Obesity - Balanced diet, increase physical activity discharge, outpatient pulmonary follow-up for sleep study, weight reduction. #GI/DVT Prophylaxis - PPI- Pepcid - Lovenox SubQ - SCD to bilateral lower extremities while in bed Hospital Course to Date: 02/07: S/p X1 dose of IV IG overnight, patient reported feeling much better and stronger this am, moving all extremities. Plan to wean off Bipap this am. Okay to start a diet if patient pass bedside swallow. D/W CCM plan for CT chest w con tomorrow to r/o thymoma. Neurology consulted. 02/08: S/p emergent intubation by anethesia yesterday. Now intubated and sedated, RASS -2. Neurology recommendations noted. Resumed home meds. Will wean off sedation this am for possible SAT/SBT. CT chest also noted with no evidence of thymoma. Continue IVIG. Attending received call back from [facility]. Transfer was declined, no available ICU beds at this time. They recommend continuing IVIG and possible plasma exchange. Awaiting on Neurology final recommendations. 02/09: S/p Extubation this am. Desated to 85% on 3L NC, SPO2 improved to 88% on 8L NC. This am CXR noted, worsen opacity of the left side. CCM at the bedside, X1 dose of IV Lasix ordered and place patient on Bipap. Low Threshold for reintubation. Plan of care and the high probability for reintubation was discussed with patient at the bedside. Patient verbalized understanding and agree with current care plan. Continue IVIG, Awaiting on Neurology final recommendations. 02/10: Tolerated Bipap, now on 2L NC this am, SPO2 at 100%. No s/s of any acute r espiratory distress noted. This am CXR also noted with significant improvement. Continue IVIGm and Bipap at night. Incentive Spirometer also ordered. advance diet as tolerated. PT/OT/Speech consulted. 02/11: Completed x5days of IVIG overnight. Stable on RA, still complaining of generalized weakness, other stable. Diet advanced to solid this am, patient is tolerating it. Continue IS and Bipap at night. Encourage mobility as tolerated, PT/OT/Speech consult pending. 02/12: CPAP prn, currently on RA. Improved strength to BLE and BUE per patient. 02/13: Increased weakness reported on encounter. increased steroid dose to prednisone 40 mg po daily. Continue pyridostigmine and cellcept. Possible d/c tomorrow. 02/14: Weakness improved however still continues to have difficulty with strength. Still has right eye lid droop. Patient increased to prednisone 60 mg po daily. He has had 4 myasthenia gravis crises in the past and was initiated on high dose steroids with longterm taper by her OP neurologist. Pt recommended home with home health care PT. Ambulation is challenging as patient requires a rolling walker. 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 Patient is not a resident of [place]. States his home state is [place]. He has a sister in [place] who's address he uses for mailing purposes. Will work with to coordinate placement. 02/15: worsened strength. Admits to dysphagia and shortness of breath today. Given worsening symptmology transferring back to ICU for close monitoring. Plasma exchange ordered, first tx tomorrow, coordinated with Dr Katya Manley. [facility]tomorrow AM for exchanges. Steroid dose increased to Prednisone 80 mg po daily in interim. Will attempt to call neurologist tomorrow AM. 02/16: Plan for plasma exchange today. Labs reviewed, cbc/bmp/fibrinogen all unremarkable. Trialysis catheter placed, pt tolerated procedure well. Taryn Manley will be here today do 4L exchange. A total of 5 exchanges will be completed over 9 days. A total of 20 L 5% albumin will be needed, pharmacy was notified yesterday of this. Continue prednisone 80 mg po daily dose. 02/17: No overnight events. No acute complaints. Tolerated PLEX well. Continue steroids and will follow for symptom improvement. 02/18: Plex tx today. XR ordered due to severe rib pain, no rib fx ID. Will continue to follow for sx improvement. 02/19: Doing much better this am. OOB and sitting up in the chair this am, stable on RA. Still complaining of generalized but reported feeling better. Continue plasma exchange and PO prednisone, cellcept, and Mycophenolate. Continue PT/OT. 02/20: Patient seen and examined, clinically showing some improvement, will continue on current Prednisone Dose, patients fibrinogen is lower than 100, we do not have plasma inhouse, patient will undergo PLEX with Albumin and recieve Cyroprecipitated (Ordered) after per the [place] team. Continue to monitor NIF Continue IMCU care in this critically ill patient. 02/21: Tolerated PLEX yesterday, Fibrinogen improved to 100. Patient has leukocytosis today without fever, no new neuro deficits reported today. Will request Neuro-revaluation. Case management continues to work on safe discharge plan. Plan discussed with the patient. Dispo based on evaluation by Neuro 02/22: Patient seen and examined today, awaiting 4/5 PLEX therapy, awaiting Neurology re-evaluation. Discussed with case management and patient about discharge plans. 02/23: Patient seen and examined, Neurology input noted: change mestinon from 180 mg po qday to 60 mg po tid; prednisone from 80 mg po qday to 40 mg po qday; continue cellcept (per home regimen); plex 4/5 ongoing at bedside today; pt/ot/st evaluation/monitoring; f/u established neurologist within 2 weeks post- discharge. Patient can be discharged after THE LAST PLEX TOMORROW. 02/24/2022 Patient receiving plasma exchange and FFP's 02/25/2022 Patient finished course of plasma exchanges and FFP's Patient to be tapered on prednisone from 80 mg Had extensive discussion with the patient Patient lives in [place] and is on Mestinon and prednisone Patient is willing to fly back to [place] and follow-up with his PCP Patient to be discharged on prednisone tapering dose 60 mg for 5 days 40 mg for 5 days 20 mg for 5 days and then continue at 10 mg 02/26/2022. Patient completed plasma exchange and FFP. Continue prednisone taper. Apparently, pulmonary wants to continue to monitor the patient for 24 hours. Anticipate discharge later today or in a.m. 02/27/2022: Discharge home today. rx for prednisone, mestinon, and cellcept provided. Disposition: 01 HOME / SELF CARE / HOMELESS Final Discharge Diagnosis (Prints w/discharge instructions): myasthenic crisis Time spent for discharge: 35 Core Measure Documentation - Palliative Care Palliative Care/ Comfort Measures: Not Applicable - Core Measures Any of the following diagnoses?: none Exam - Physical Exam Narrative exam: General appearance: Present: no acute distress, well-nourished, obese - EENT Eyes: Present: PERRL ENT: dentition normal, hearing decreased - Neck Neck: Present: normal ROM - Respiratory Respiratory effort: normal Respiratory: bilateral: diminished - Cardiovascular Rhythm: regular Heart Sounds: Present: S1 & S2. Absent: systolic murmur, diastolic murmur - Extremities Extremities: no ischemia, pulses intact, pulses symmetrical, No edema, normal temperature, normal color Peripheral Pulses: within normal limits - Abdominal General gastrointestinal: soft, non-tender, non-distended, normal bowel sounds - Integumentary Integumentary: Present: warm, dry - Psychiatric Psychiatric: appropriate mood/affect, cooperative - Neurologic Neurologic: no focal deficits, moves all extremities - Allied Health Allied health notes reviewed: nursing, RT, social work - Constitutional Vitals: Temp Pulse Resp BP Pulse Ox 98.7 F 68 18 110/68 98 02/26/22 08:42 02/27/22 00:14 02/27/22 00:14 02/26/22 20:19 02/27/22 00:14 Plan Follow up with: MARTA RUIZ MD [Primary Care Provider] - 7 Days Prescriptions: Mycophenolate [Cellcept] 1,000 mg PO BID 30 Days #60 tablet predniSONE [Deltasone] 60 mg PO QDAY 30 Days #30 tab Pyridostigmine [Mestinon] 60 mg PO TID 30 Days #90 tablet
[2022-02-27] MEDS: FAMOTIDINE 20 MG TAB PO SCH ×2 (09:45→23:22)
[2022-02-27] MEDS: SENNOSIDES/DOCUSATE SODIUM 8.6/50 MG TAB PO SCH ×2 (09:45→23:21)
[2022-02-27] MEDS: PYRIDOSTIGMINE BROMIDE 60 MG TAB PO SCH ×4 (09:45→23:24)
[2022-02-27] MEDS: predniSONE 20 MG TAB PO SCH (09:45)
[2022-02-27] MEDS: MYCOPHENOLATE 500 MG TAB PO SCH ×2 (10:07→23:22)
--- NOTE | 2022-02-27 10:12 | Cat Scan Report ---
CT ABDOMEN AND PELVIS WITHOUT CONTRAST HISTORY: patient complain of tenderness after fall, covid + COMPARISON: None. TECHNIQUE: Axial CT images were obtained through the abdomen and pelvis without IV contrast. Sagittal and coronal reformatted images. All CT scans at this location are performed using CT dose reduction for ALARA by means of automated exposure control. FINDINGS: CT ABDOMEN: Lung Bases: Clear. Liver: A 2.3 cm rounded hypodensity is identified in the superior right hepatic lobe on image 25, ser ies 2. A similar appearing 2.3 cm hypodensity is identified in the inferior right hepatic lobe on catherine ge 52. These are incompletely characterized on noncontrast CT. These do not appear to represent cysts . These may represent hemangiomas. There is no evidence for underlying parenchymal liver disease. The se could be further evaluated with multiphase CT or MRI with contrast. Biliary: No significant abnormality. Spleen: No significant abnormality. Unenlarged. Pancreas: No significant abnormality. Adrenals: No significant abnormality. Kidneys: No significant abnormality. Lymphatics: No lymphadenopathy. Vasculature: No significant abnormality. Bowel/Peritoneum: No significant abnormality. No free air. No free fluid. Normal appendix. CT PELVIS: : No significant abnormality. Osseous Structures: The bony structures appear mildly demineralized. No acute fracture or suspicious bony lesion is detected. Schmorl's nodes are noted along the superior endplate of T11, T12 and L1. Additional Findings: None IMPRESSION: No acute injury is identified in the abdomen or pelvis. 2 ill-defined liver hypodensities are identified as described. I suspect these represent cavernous he mangiomas although they are incompletely characterized on noncontrast CT. Consider [address] w ith contrast or MRI with and without contrast for further evaluation. Signer Name: Yunior York Jr, MD Signed: 02/27/2022 10:08 AM Workstation Name: [id number]
[2022-02-27] MEDS ORDERED: predniSONE 20 MG TAB PO ONE (12:00)
--- NOTE | 2022-02-27 18:20 | Event Note ---
Date: 02/27/22 Patient continues to be weak. Per sales vice president, patient unable to raise self off toilet or bed. Appears very unsteady. Patient on follow states that he still feels like a flare might be coming up given diplopia, generalized weakness. Discharge cancelled. Will increase dosage of prednisone and pyridostigmine. Additionally, he will need to be reassessed by PT as their last assessment stated he did not have any needs and this is clearly not the case, will re- consult
--- NOTE | 2022-02-27 20:44 | Progress Note ---
Assessment and Plan 36 YO Male with MG currently taking Cellcept, Mycophenolate, and Prednisone presents ED for evaluation. Patient states that he had experienced generalized weakness over the past 1 day with progressive and worsening symptoms over the same timeframe. Patient states that he was able to walk earlier today but he is unable to walk. Patient also acknowledges upper extremity weakness as well as difficulty speaking. EMS was notified and upon arrival the patient was found to be in distress and subsequently transported to [facility] for further care and evaluation of the aforementioned symptoms. The patient was seen and evaluated in the emergency department. All lab and imaging studies reviewed. Patient found to have myasthenia gravis crisis with increased risk for worsening symptoms as well as development of acute hypoxemic respiratory failure. Patient placed on noninvasive positive pressure ventilation in the emergency department and admitted to ICU. IVIG ordered in the emergency department. Patient denies fever, chills, chest pain, palpitation productive cough, skin rash and recent Contact, known exposure to COVID-19. Patient eventually intubated and placed on mechanical ventilation. Patient extubated now. Patient has history vaping 2 times a day x 14 years. Stopped vaping 3 years ago. Denies alcohol abuse. Used Marijuna in his teenage years. Not used Marijuana for long time. 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 Has no children. No known drug allergies. Patient has history of Sleep apnea. Uses CPAP 12 cm H2O during night time. Patient was seen in IMCU. Patient Obese, awake, weak. Resting on room air. O2 saturation 97%. No acute respiratory distress at rest. CPAP 15 cm H20, FIO2 30% standby in room. Patient finished course of PlasmaPheresis. Patient afebrile. Mild leukocytosis, Blood pressure 120/68 rate 76 respirations 18. Chest xray 02/10/22 Previous density of the left has almost completely cleared wi th only minimal basilar atelectasis remaining. Right lung field clear. No pneumothorax. CT scan of chest 02/08/[address] evidence of thymoma. Hypoattenuating lesions of the liver statistically reflect hepatic hemangiomas. One of these lesions demonstrate characteristic peripheral puddling of contrast, the second does not clearly demonstrate specific pattern of enhancement. Ultrasound targeting these lesions may be useful for further characterization and confirmation of hemangioma. Moderate subsegmental atelectasis of the bilateral lungs. Satisfactory positioning of endotracheal tube and esophagogastric tube. Chest xray done 02/17/22 reported No significant pulmonary or pleural abnormality. No pneumothorax. Left rib series done on 02/18/22 reported he left ribs appear unremarkable. There is no visible left rib fracture. No acute pulmonary disease. Patient is on Po Prednisone, Albuterol inhaler, S/C Lovenox and famotidine. - Patient Problems (1) Acute hypoxemic respiratory failure Current Visit: Yes Status: Acute Plan to address problem: CPAP during night time. Continue prednisone. Continue S/C Lovenox. Continue famotidine. Albuterol inhaler prn for shortness of breath. (2) Obesity Current Visit: Yes Status: Acute Qualifiers: Body mass index: BMI 33.0-33.9 Plan to address problem: Counseled to loose weight Exercise and diet. (3) Sleep apnea Current Visit: Yes Status: Acute Plan to address problem: Patient says he has history of sleep apnea. No sleep study results available at this time. Continue CPAP as she is using at home. Recommend to loose weight. Explained sleep hygiene. Recommend not to drive or operate heavy equipment with sleepiness. Avoid alcohol, sedatives and Narcotics If sleep study is while back, recommend to repeat sleep study as out patient. (4) Myasthenia gravis Current Visit: Yes Status: Acute Plan to address problem: Patient finished course of plasmapheresis. Management as per primary care and neurology. Subjective Date of service: 02/27/22 Principal diagnosis: Myasthenic crisis; Obesity; Possible ANTON/OHS; Blurry vision; Hypokalemia Interval history: 36 YO Male with MG currently taking Cellcept, Mycophenolate, and Prednisone presents ED for evaluation. Patient states that he had experienced generalized weakness over the past 1 day with progressive and worsening symptoms over the same timeframe. Patient states that he was able to walk earlier today but he is unable to walk. Patient also acknowledges upper extremity weakness as well as difficulty speaking. EMS was notified and upon arrival the patient was found to be in distress and subsequently transported to [facility] for further care and evaluation of the aforementioned symptoms. The patient was seen and evaluated in the emergency department. All lab and imaging studies reviewed. Patient found to have myasthenia gravis crisis with increased risk for worsening symptoms as well as development of acute hypoxemic respiratory failure. Patient placed on noninvasive positive pressure ventilation in the emergency department and admitted to ICU. IVIG ordered in the emergency department. Patient denies fever, chills, chest pain, palpitation productive cough, skin rash and recent Contact, known exposure to COVID-19. Patient eventually intubated and placed on mechanical ventilation. Patient extubated now. Patient has history vaping 2 times a day x 14 years. Stopped vaping 3 years ago. Denies alcohol abuse. Used Marijuna in his teenage years. Not used Marijuana for long time. 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 Has no children. No known drug allergies. Patient has history of Sleep apnea. Uses CPAP 12 cm H2O during night time. Patient was seen in IMCU. Patient Obese, awake, weak. Resting on room air. O2 saturation 97%. No acute respiratory distress at rest. CPAP 15 cm H20, FIO2 30% standby in room. Patient finished course of PlasmaPheresis. Patient afebrile. Mild leukocytosis, Blood pressure 120/68 rate 76 respirations 18. Chest xray 02/10/22 Previous density of the left has almost completely cleared with only minimal basilar atelectasis remaining. Right lung field clear. No pneumothorax. CT scan of chest 02/08/[address] evidence of thymoma. Hypoattenuating lesions of the liver statistically reflect hepatic hemangiomas. One of these lesions demonstrate characteristic peripheral puddling of contrast, the second does not clearly demonstrate specific pattern of enhancement. Ultrasound targeting these lesions may be useful for further characterization and confirmation of hemangioma. Moderate subsegmental atelectasis of the bilateral lungs. Satisfactory positioning of endotracheal tube and esophagogastric tube. Chest xray done 02/17/22 reported No significant pulmonary or pleural abnormality. No pneumothorax. Left rib series done on 02/18/22 reported he left ribs appear unremarkable. There is no visible left rib fracture. No acute pulmonary disease. Patient is on Po Prednisone, Albuterol inhaler, S/C Lovenox and famotidine. Objective Vital Signs - 12hr 02/27/22 02/27/22 02/27/22 09:42 10:00 12:08 Temperature 98.2 F Pulse Rate 74 75 Respiratory 18 20 18 Rate Respiratory 18 Rate [Right Shoulder] Blood Pressure 117/64 Blood Pressure 111/54 [Right] O2 Sat by Pulse 96 96 Oximetry 02/27/22 16:00 Temperature 98.3 F Pulse Rate 76 Respiratory 18 Rate Respiratory Rate [Right Shoulder] Blood Pressure Blood Pressure 120/68 [Right] O2 Sat by Pulse 97 Oximetry Constitutional: no acute distress, alert, other (young obese male without increased respiratory effort at rest) Eyes: non-icteric ENT: oropharynx moist Neck: supple, no lymphadenopathy, no JVD, other (large circumference) Effort: normal Ascultation: Bilateral: diminished breath sounds Percussion: Bilateral: not dull Cardiovascular: regular rate and rhythm Gastrointestinal: normoactive bowel sounds, soft, non-tender, non-distended (pro tuberant) Integumentary: normal Extremities: no cyanosis, no edema, pulses normal, no ischemia or petechiae Neurologic: non-focal exam (grossly), pupils equal and round, CN II-XII normal, other (weak (3-4/5)) Psychiatric: mood appropriate, affect normal CBC and BMP: 02/24/22 04:03 02/24/22 04:03 ABG, PT/INR, D-dimer: ABG ABG pH 7.333 pH Units (7.350-7.450) L 02/08/22 09:20 ABG pCO2 48.2 mm Hg 02/08/22 09:20 ABG pO2 114.7 mm Hg (80.0-90.0) H 02/08/22 09:20 ABG O2 Saturation 97.9 % (95.0-99.0) 02/08/22 09:20 Abnormal lab findings: Abnormal Labs 02/06/22 02/06/22 02/06/22 12:39 12:39 13:59 WBC RBC 5.75 H Hgb Hct MCV 74 L MCH 23 L MCHC 30 L RDW 16.9 H Lymph % (Auto) 6.4 L Colbert % (Auto) Lymph # (Auto) 0.5 L Colbert # (Auto) Seg Neutrophils % 89.3 H Seg Neutrophils # Fibrinogen ABG pH ABG pO2 ABG Hemoglobin 12.6 L Oxyhemoglobin Potassium 3.5 L Chloride 109.1 H Carbon Dioxide 20 L Creatinine 0.7 L Glucose 113 H Alkaline Phosphatase Total Protein Albumin 02/07/22 02/07/22 02/08/22 04:15 12:00 04:23 WBC RBC 5.10 H Hgb 11.5 L 11.0 L Hct MCV 72 L 74 L MCH 23 L 22 L MCHC 30 L RDW 17.3 H 17.1 H Lymph % (Auto) Colbert % (Auto) 9.1 H Lymph # (Auto) Colbert # (Auto) Seg Neutrophils % Seg Neutrophils # Fibrinogen ABG pH ABG pO2 72.6 L ABG Hemoglobin 12.2 L Oxyhemoglobin 94.4 L Potassium Chloride Carbon Dioxide Creatinine Glucose Alkaline Phosphatase Total Protein Albumin 02/08/22 02/08/22 02/09/22 04:23 09:20 04:50 WBC RBC Hgb 10.4 L Hct 33.7 L MCV 73 L MCH 22 L MCHC 31 L RDW 17.5 H Lymph % (Auto) Colbert % (Auto) Lymph # (Auto) Colbert # (Auto) Seg Neutrophils % Seg Neutrophils # Fibrinogen ABG pH 7.333 L ABG pO2 114.7 H ABG Hemoglobin 11.1 L Oxyhemoglobin Potassium Chloride 109.3 H Carbon Dioxide Creatinine 0.6 L Glucose Alkaline Phosphatase Total Protein Albumin 02/09/22 02/10/22 02/11/22 04:50 04:50 04:38 WBC 4.4 L 3.3 L RBC Hgb 10.1 L 10.4 L Hct 32.9 L 33.6 L MCV 73 L 73 L MCH 22 L 23 L MCHC 31 L 31 L RDW 17.2 H 17.0 H Lymph % (Auto) Colbert % (Auto) Lymph # (Auto) Colbert # (Auto) Seg Neutrophils % Seg Neutrophils # Fibrinogen ABG pH ABG pO2 ABG Hemoglobin Oxyhemoglobin Potassium Chloride Carbon Dioxide Creatinine Glucose 107 H Alkaline Phosphatase Total Protein Albumin 02/11/22 02/12/22 02/13/22 04:38 04:25 04:17 WBC 3.7 L 3.5 L RBC Hgb 10.5 L 10.8 L Hct 34.5 L MCV 73 L 73 L MCH 22 L 22 L MCHC 30 L 30 L RDW 16.9 H 17.5 H Lymph % (Auto) Colbert % (Auto) Lymph # (Auto) Colbert # (Auto) Seg Neutrophils % Seg Neutrophils # Fibrinogen ABG pH ABG pO2 ABG Hemoglobin Oxyhemoglobin Potassium Chloride Carbon Dioxide Creatinine 0.7 L Glucose 101 H Alkaline Phosphatase Total Protein Albumin 02/16/22 02/16/22 02/18/22 04:52 04:52 07:18 WBC RBC Hgb 11.4 L 11.4 L Hct 35.3 L MCV 71 L 72 L MCH 23 L 23 L MCHC RDW 17.4 H 17.3 H Lymph % (Auto) 43.5 H Colbert % (Auto) 7.6 H 7.6 H Lymph # (Auto) Colbert # (Auto) Seg Neutrophils % 71.5 H Seg Neutrophils # Fibrinogen ABG pH ABG pO2 ABG Hemoglobin Oxyhemoglobin Potassium Chloride Carbon Dioxide Creatinine 0.6 L Glucose Alkaline Phosphatase Total Protein Albumin 3.5 L 02/18/22 02/18/22 02/20/22 07:18 07:18 04:23 WBC RBC 5.22 H Hgb 11.6 L Hct MCV 73 L MCH 22 L MCHC 31 L RDW 18.0 H Lymph % (Auto) Colbert % (Auto) Lymph # (Auto) Colbert # (Auto) Seg Neutrophils % Seg Neutrophils # Fibrinogen 144 L* ABG pH ABG pO2 ABG Hemoglobin Oxyhemoglobin Potassium Chloride Carbon Dioxide Creatinine 0.5 L Glucose Alkaline Phosphatase Total Protein Albumin 02/20/22 02/20/22 02/21/22 04:23 04:23 09:50 WBC 13.1 H RBC 5.36 H Hgb Hct MCV 73 L MCH 22 L MCHC 31 L RDW 18.4 H Lymph % (Auto) Colbert % (Auto) Lymph # (Auto) Colbert # (Auto) 1.0 H Seg Neutrophils % Seg Neutrophils # 8.5 H Fibrinogen 89 L* ABG pH ABG pO2 ABG Hemoglobin Oxyhemoglobin Potassium Chloride Carbon Dioxide Creatinine 0.5 L Glucose 107 H Alkaline Phosphatase Total Protein Albumin 02/21/22 02/21/22 02/22/22 09:50 09:50 03:30 WBC 11.7 H RBC 5.16 H Hgb 11.4 L Hct MCV 73 L MCH 22 L MCHC 31 L RDW 18.5 H Lymph % (Auto) Colbert % (Auto) Lymph # (Auto) Colbert # (Auto) Seg Neutrophils % Seg Neutrophils # Fibrinogen 100 L* ABG pH ABG pO2 ABG Hemoglobin Oxyhemoglobin Potassium Chloride Carbon Dioxide Creatinine 0.7 L Glucose Alkaline Phosphatase Total Protein Albumin 02/22/22 02/22/22 02/23/22 03:30 10:11 04:08 WBC 11.4 H RBC Hgb 10.5 L Hct 33.9 L MCV 72 L MCH 22 L MCHC 31 L RDW 19.3 H Lymph % (Auto) Colbert % (Auto) Lymph # (Auto) Colbert # (Auto) Seg Neutrophils % Seg Neutrophils # Fibrinogen 114 L* ABG pH ABG pO2 ABG Hemoglobin Oxyhemoglobin Potassium Chloride Carbon Dioxide Creatinine 0.5 L Glucose Alkaline Phosphatase Total Protein 5.8 L Albumin 02/23/22 02/24/22 02/24/22 04:08 04:03 04:03 WBC RBC Hgb 10.3 L Hct 33.2 L MCV 72 L MCH 22 L MCHC 31 L RDW 19.0 H Lymph % (Auto) Colbert % (Auto) Lymph # (Auto) Colbert # (Auto) Seg Neutrophils % Seg Neutrophils # Fibrinogen 68 L* ABG pH ABG pO2 ABG Hemoglobin Oxyhemoglobin Potassium Chloride Carbon Dioxide Creatinine 0.5 L Glucose Alkaline Phosphatase 23 L Total Protein 5.2 L Albumin 02/24/22 04:03 WBC RBC Hgb Hct MCV MCH MCHC RDW Lymph % (Auto) Colbert % (Auto) Lymph # (Auto) Colbert # (Auto) Seg Neutrophils % Seg Neutrophils # Fibrinogen ABG pH ABG pO2 ABG Hemoglobin Oxyhemoglobin Potassium Chloride Carbon Dioxide Creatinine 0.5 L Glucose Alkaline Phosphatase Total Protein Albumin Allied health notes reviewed: nursing
[2022-02-27] MEDS: ENOXAPARIN 40 MG/0.4 ML INJ SUB-Q SCH (23:21)
[2022-02-27] MEDS: oxyCODONE /ACETAMINOPHEN 5-325MG TAB PO PRN (23:32)
[2022-02-27] MEDS: MELATONIN 5 MG TAB PO PRN (23:33)
[2022-02-28] MEDS: SENNOSIDES/DOCUSATE SODIUM 8.6/50 MG TAB PO SCH ×2 (09:38→21:44)
[2022-02-28] MEDS: predniSONE 20 MG TAB PO SCH (09:38)
[2022-02-28] MEDS: MYCOPHENOLATE 500 MG TAB PO SCH ×2 (09:38→21:44)
[2022-02-28] MEDS: FAMOTIDINE 20 MG TAB PO SCH ×2 (09:38→21:44)
[2022-02-28] MEDS: PYRIDOSTIGMINE BROMIDE 60 MG TAB PO SCH ×3 (09:39→17:06)
--- NOTE | 2022-02-28 14:41 | Progress Note ---
Assessment and Plan Assessment and plan: This is a 36-year-old male with known past medical history of obesity and myasthenia gravis admitted for myasthenia gravis crisis. 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 He was passing through [place] when symptoms started - S/p emergent intubation by anethesia - CT chest w con showed no evidence of thymoma - Neurology consulted, appreciated recommendations - Resumed home meds: Cellcept, Mestinon, and PO Prednisone - Completed X 5 days of IVIG - Plasma exchange initiated on 02/16, Received X2 treament. For a total of 5 exchanges to be completed over 9 days. - CCM also on consult, appreciated recommendations - Patient reported that his neurologist in [place] is Dr. Billie Delgado - Transfer to [facility] was declined, no available ICU beds at this time. They recommend continuing IVIG and possible plasma exchange -Plasmapheresis being done today and FFP's were ordered as fibrinogen is low #Acute Hypoxemic Respiratory Failure #Probable ANTON- On CPAP at home #Former Smoker - most likely related to MG crisis - S/p emergent intubation by anesthesia on 02/07 for airway protection - 02/09 s/p extubation - Stable on RA this am - CCM consulted, appreciate recommendations - Completed X5 days of IVIG - Continue plasma exchange and IS ordered - Continue Bipap at night - Aspiration precaution HOB above 30 - PRN O2 supplementation as needed - Continue SPO2 monitoring for SPO2 goal above 92% #Hepatic Hemangiomas - noted fro CT chest w/o con - Stable, LFTs within normal range - Outpatient follow up for US and further workups #Obesity - Balanced diet, increase physical activity discharge, outpatient pulmonary follow-up for sleep study, weight reduction. #GI/DVT Prophylaxis - PPI- Pepcid - Lovenox SubQ - SCD to bilateral lower extremities while in bed Hospital Course to Date: 02/07: S/p X1 dose of IV IG overnight, patient reported feeling much better and stronger this am, moving all extremities. Plan to wean off Bipap this am. Okay to start a diet if patient pass bedside swallow. D/W CCM plan for CT chest w con tomorrow to r/o thymoma. Neurology consulted. 02/08: S/p emergent intubation by anethesia yesterday. Now intubated and sedated, RASS -2. Neurology recommendations noted. Resumed home meds. Will wean off sedation this am for possible SAT/SBT. CT chest also noted with no evidence of thymoma. Continue IVIG. Attending received call back from [facility]. Transfer was declined, no available ICU beds at this time. They recommend continuing IVIG and possible plasma exchange. Awaiting on Neurology final recommendations. 02/09: S/p Extubation this am. Desated to 85% on 3L NC, SPO2 improved to 88% on 8L NC. This am CXR noted, worsen opacity of the left side. CCM at the bedside, X1 dose of IV Lasix ordered and place patient on Bipap. Low Threshold for reintubation. Plan of care and the high probability for reintubation was discussed with patient at the bedside. Patient verbalized understanding and agree with current care plan. Continue IVIG, Awaiting on Neurology final recommendations. 02/10: Tolerated Bipap, now on 2L NC this am, SPO2 at 100%. No s/s of any acute respiratory distress noted. This am CXR also noted with significant improvement. Continue IVIGm and Bipap at night. Incentive Spirometer also ordered. advance diet as tolerated. PT/OT/Speech consulted. 02/11: Completed x5days of IVIG overnight. Stable on RA, still complaining of generalized weakness, other stable. Diet advanced to solid this am, patient is tolerating it. Continue IS and Bipap at night. Encourage mobility as tolerated, PT/OT/Speech consult pending. 02/12: CPAP prn, currently on RA. Improved strength to BLE and BUE per patient. 02/13: Increased weakness reported on encounter. increased steroid dose to prednisone 40 mg po daily. Continue pyridostigmine and cellcept. Possible d/c tomorrow. 02/14: Weakness improved however still continues to have difficulty with stre ngth. Still has right eye lid droop. Patient increased to prednisone 60 mg po daily. He has had 4 myasthenia gravis crises in the past and was initiated on high dose steroids with ocean transportation intermediary taper by her OP neurologist. Pt recommended home with home health care PT. Ambulation is challenging as patient requires a rolling walker. 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 Patient is not a resident of [place]. States his home state is [place]. He has a sister in [place] who's address he uses for mailing purposes. Will work with CM to coordinate placement. 02/15: worsened strength. Admits to dysphagia and shortness of breath today. Given worsening symptmology transferring back to ICU for close monitoring. Plasma exchange ordered, first tx tomorrow, coordinated with Dr Katya Manley. Will place vascath today/tomorrow AM for exchanges. Steroid dose increased to Prednisone 80 mg po daily in interim. Will attempt to call neurologist tomorrow AM. 02/16: Plan for plasma exchange today. Labs reviewed, cbc/bmp/fibrinogen all unremarkable. Trialysis catheter placed, pt tolerated procedure well. Taryn Manley will be here today do 4L exchange. A total of 5 exchanges will be completed over 9 days. A total of 20 L 5% albumin will be needed, pharmacy was notified yesterday of this. Continue prednisone 80 mg po daily dose. 02/17: No overnight events. No acute complaints. Tolerated PLEX well. Continue steroids and will follow for symptom improvement. 02/18: Plex tx today. XR ordered due to severe rib pain, no rib fx ID. Will continue to follow for sx improvement. 02/19: Doing much better this am. OOB and sitting up in the chair this am, stable on RA. Still complaining of generalized but reported feeling better. Continue plasma exchange and PO prednisone, cellcept, and Mycophenolate. Continue PT/OT. 02/20: Patient seen and examined, clinically showing some improvement, will continue on current Prednisone Dose, patients fibrinogen is lower than 100, we do not have plasma inhouse, patient will undergo PLEX with Albumin and recieve Cyroprecipitated (Ordered) after per the [facility] team. Continue to monitor NIF Continue IMCU care in this critically ill patient. 02/21: Tolerated PLEX yesterday, Fibrinogen improved to 100. Patient has leukocytosis today without fever, no new neuro deficits reported today. Will request Neuro-revaluation. Case management continues to work on safe discharge plan. Plan discussed with the patient. Dispo based on evaluation by Neuro 02/22: Patient seen and examined today, awaiting 4/5 PLEX therapy, awaiting Neurology re-evaluation. Discussed with case management and patient about discharge plans. 02/23: Patient seen and examined, Neurology input noted: change mestinon from 180 mg po qday to 60 mg po tid; prednisone from 80 mg po qday to 40 mg po qday; continue cellcept (per home regimen); plex 4/5 ongoing at bedside today; pt/ot/st evaluation/monitoring; f/u established neurologist within 2 weeks post- discharge. Patient can be discharged after THE LAST PLEX TOMORROW. 02/24/2022 Patient receiving plasma exchange and FFP's 02/25/2022 Patient finished course of plasma exchanges and FFP's Patient to be tapered on prednisone from 80 mg Had extensive discussion with the patient Patient lives in [place] and is on Mestinon and prednisone Patient is willing to fly back to [place] and follow-up with his PCP Patient to be discharged on prednisone tapering dose 60 mg for 5 days 40 mg for 5 days 20 mg for 5 days and then continue at 10 mg 02/26/2022. Patient completed plasma exchange and FFP. Continue prednisone taper. Apparently, pulmonary wants to continue to monitor the patient for 24 hours. Anticipate discharge later today or in a.m. 02/27/2022: Discharge home today. rx for prednisone, mestinon, and cellcept provided. 02/28; d/c cancelled yesterday as patient was experiencing weakness. Feels as though he is "flaring" Mestonin increased to 120 mg q6hr. Monitor for anticholinergic side effects. Continue prednisone at high dose and continue cellcept at home dose 1000 mg po bid. Again this patient likely has suboptimal maintenance therapy...do not lower prednisone dose at this time . PT eval and continued exercises ordered. Unfortunately placement of this patient will be challenging as he lives out of his truck and insurance status will make his placement tough. History Interval history: Continues to complaint of weakness, diplopia. Denies respiratory complaints or dysphagia at this time. educated about rationale for dosage change of mestonin. Patient agreed with changes. Hospitalist Physical - Physical exam Narrative exam: Narrative exam: General appearance: Present: no acute distress, well-nourished, obese - EENT Eyes: Present: PERRL ENT: dentition normal, hearing decreased - Neck Neck: Present: normal ROM - Respiratory Respiratory effort: normal Respiratory: bilateral: diminished - Cardiovascular Rhythm: regular Heart Sounds: Present: S1 & S2. Absent: systolic murmur, diastolic murmur - Extremities Extremities: no ischemia, pulses intact, pulses symmetrical, No edema, normal temperature, normal color Peripheral Pulses: within normal limits - Abdominal General gastrointestinal: soft, non-tender, non-distended, normal bowel sounds - Integumentary Integumentary: Present: warm, dry - Psychiatric Psychiatric: appropriate mood/affect, cooperative - Neurologic Neurologic: no focal deficits, moves all extremities - Allied Health Allied health notes reviewed: nursing, RT, social work - Constitutional Vitals: Temp Pulse Resp BP Pulse Ox 98.2 F 77 20 116/58 96 02/28/22 09:39 02/28/22 09:39 02/28/22 10:00 02/28/22 09:39 02/28/22 10:00 General appearance: Present: no acute distress, well-nourished Results - Labs CBC & Chem 7: 02/24/22 04:03 02/24/22 04:03 Labs: Laboratory Last Values WBC 10.4 K/mm3 (4.5-11.0) 02/24/22 04:03 RBC 4.60 M/mm3 (3.65-5.03) 02/24/22 04:03 Hgb 10.3 gm/dl (11.8-15.2) L 02/24/22 04:03 Hct 33.2 % (35.5-45.6) L 02/24/22 04:03 MCV 72 fl (84-94) L 02/24/22 04:03 MCH 22 pg (28-32) L 02/24/22 04:03 MCHC 31 % (32-34) L 02/24/22 04:03 RDW 19.0 % (13.2-15.2) H 02/24/22 04:03 Plt Count 235 K/mm3 (140-440) 02/24/22 04:03 Lymph % (Auto) 27.4 % (13.4-35.0) 02/21/22 09:50 [place] % (Auto) 7.3 % (0.0-7.3) 02/21/22 09:50 Eos % (Auto) 0.1 % (0.0-4.3) 02/21/22 09:50 Baso % (Auto) 0.2 % (0.0-1.8) 02/21/22 09:50 Lymph # (Auto) 3.6 K/mm3 (1.2-5.4) 02/21/22 09:50 [place] # (Auto) 1.0 K/mm3 (0.0-0.8) H 02/21/22 09:50 Eos # (Auto) 0.0 K/mm3 (0.0-0.4) 02/21/22 09:50 Baso # (Auto) 0.0 K/mm3 (0.0-0.1) 02/21/22 09:50 Seg Neutrophils % 65.0 % (40.0-70.0) 02/21/22 09:50 Seg Neutrophils # 8.5 K/mm3 (1.8-7.7) H 02/21/22 09:50 Fibrinogen 68 mg/dl (211-480) L* 02/24/22 04:03 ABG pH 7.333 pH Units (7.350-7.450) L 02/08/22 09:20 ABG pCO2 48.2 mm Hg 02/08/22 09:20 ABG pO2 114.7 mm Hg (80.0-90.0) H 02/08/22 09:20 ABG HCO3 25.0 mmol/L (20.0-26.0) 02/08/22 09:20 ABG O2 Saturation 97.9 % (95.0-99.0) 02/08/22 09:20 ABG O2 Content 15.1 (0.0-44) 02/08/22 09:20 ABG Base Excess -1.1 mmol/L (-2.0-3.0) 02/08/22 09:20 ABG Hemoglobin 11.1 gm/dl (14.0-18.0) L 02/08/22 09:20 ABG Carboxyhemoglobin 1.4 % (0.0-5.0) 02/08/22 09:20 ABG Methemoglobin 0.5 % (0.0-1.5) 02/08/22 09:20 Oxyhemoglobin 96.1 % (95.0-99.0) 02/08/22 09:20 FiO2 35 % 02/08/22 09:20 Sodium 141 mmol/L (137-145) 02/24/22 04:03 Potassium 3.8 mmol/L (3.6-5.0) 02/24/22 04:03 Chloride 106.2 mmol/L (98-107) 02/24/22 04:03 Carbon Dioxide 27 mmol/L (22-30) 02/24/22 04:03 Anion Gap 12 mmol/L 02/24/22 04:03 BUN 10 mg/dL (9-20) 02/24/22 04:03 Creatinine 0.5 mg/dL (0.8-1.3) L 02/24/22 04:03 Estimated GFR > 60 ml/min 02/24/22 04:03 BUN/Creatinine Ratio 20 % 02/24/22 04:03 Glucose 81 mg/dL (75-100) 02/24/22 04:03 Calcium 8.8 mg/dL (8.4-10.2) 02/24/22 04:03 Total Bilirubin 0.30 mg/dL (0.1-1.2) 02/23/22 04:08 AST 9 units/L (5-40) 02/23/22 04:08 ALT 11 units/L (7-56) 02/23/22 04:08 Alkaline Phosphatase 23 units/L (35-129) L 02/23/22 04:08 Total Protein 5.2 g/dL (6.3-8.2) L 02/23/22 04:08 Albumin 4.8 g/dL (3.9-5) 02/23/22 04:08 Albumin/Globulin Ratio 12.0 % 02/23/22 04:08 Actin IgG Antibody <20 U (<20) 02/16/22 04:52 Blood Type O POSITIVE 02/24/22 11:33 Antibody Screen Negative 02/24/22 11:33 [place]/IV: Voiding Method Urinal Active Medications - Current Medications Current Medications: Generic Name Dose Route Start Last Admin Trade Name Freq PRN Reason Stop Dose Admin Acetaminophen 650 mg 02/06/22 15:00 02/25/22 23:41 Acetaminophen 325 Mg Tab PO 650 mg Q6H PRN Administration Pain MILD(1-3)/Fever >100.5/[place] Albuterol 2.5 mg 02/06/22 15:00 02/15/22 21:54 Albuterol 2.5 Mg/3 Ml Nebu IH 2.5 mg Q3HRT PRN Administration Shortness Of Breath Diphenhydramine HCl 25 mg 02/15/22 14:06 02/16/22 11:49 Diphenhydramine 50 Mg/Ml Vial IV 25 mg Q6H PRN Administration Itching Enoxaparin Sodium 40 mg 02/06/22 22:00 02/27/22 23:21 Enoxaparin 40 Mg/0.4 Ml Inj SUB-Q 40 mg QDAY@2200 NESTOR Administration Protocol Famotidine 20 mg 02/12/22 10:00 02/28/22 09:38 Famotidine 20 Mg Tab PO 20 mg BID NESTOR Administration Hydrophilic Ointment 1 applic 02/07/22 10:55 Lip Therapy Vaseline TP Q2HR PRN Dry Lips Melatonin 5 mg 02/21/22 01:15 02/27/22 23:33 Melatonin 5 Mg Tab PO 5 mg QHS PRN Administration Sleep Multi-Ingred Cream/Lotion/Oil/Oint 1 applic 02/07/22 10:55 Mineral Oil/Petrolatum, White Ophth Oint 3.5 Gm OU Q4HR PRN Dry Eye(s) Mycophenolate Mofetil 1,000 mg 02/21/22 10:00 02/28/22 09:38 Mycophenolate 500 Mg Tab PO 1,000 mg BID NESTOR Administration Ondansetron HCl 4 mg 02/08/22 17:00 02/20/22 23:58 Ondansetron 4 Mg/2 Ml Inj IV 4 mg Q8H PRN Administration Nausea And Vomiting Oxycodone/Acetaminophen 1 tab 02/06/22 15:00 02/27/22 23:32 Oxycodone /Acetaminophen 5-325mg Tab PO 1 tab Q16H PRN Administration Pain, Moderate (4-6) Prednisone 60 mg 02/28/22 10:00 02/28/22 09:38 Prednisone 20 Mg Tab PO 60 mg QDAY NESTOR Administration Pyridostigmine [place] 120 mg 02/27/22 19:00 02/28/22 11:44 Pyridostigmine [place] 60 Mg Tab PO 120 mg Q6HR NESTOR Administration Senna/Docusate Sodium 1 tab 02/12/22 10:00 02/28/22 09:38 Sennosides/Docusate Sodium 8.6/50 Mg Tab PO 1 tab BID NESTOR Administration Sodium Chloride 10 ml 02/06/22 22:00 02/28/22 09:39 Sodium Chloride 0.9% 10 Ml Flush Syringe IV 10 ml BID NESTOR Administration Sodium Chloride 10 ml 02/06/22 13:59 Sodium Chloride 0.9% 10 Ml Flush Syringe IV PRN PRN LINE FLUSH Nutrition/Malnutrition Assess - Dietary Evaluation Nutrition/Malnutrition Findings: Nutrition Notes Start: 02/07/22 13 :09 Freq: Status: Active Protocol: Document 02/27/22 14:07 PRADEEP (Rec: 02/27/22 14:34 PRADEEP [id number]) Nutrition Notes Initial or Follow up Reassessment Current Diagnosis Respiratory Failure Other Pertinent Diagnosis Myasthenia Gravis, ANTON, Hepatic Hemangiomas. Current Diet Regular Diet (since L 02/19). Labs/Tests 02/27: Crea 0.5. Pertinent Medications 02/27: Nutritionally unremarkable. Height 5 ft 10 in Weight 102 kg [place] Body Weight (kg) 75.45 BMI 32.2 Weight change and time frame No body weight change reported in 1 week. Weight Status Obese Subjective/Other Information RD consult for routine F/U on dietary advancement. No further reports available on Pt's PO intake of meals, will assess at F/U if possible . Pt is on Room Air, O2 saturation @ 96%, according to Physical Assessment History notes. Pt finished plasma exchange tratment and is cleared for discharge home with family, according to Progress notes. Percent of energy/protein needs met: Prescribed Regular Diet provides for energy/protein needs (2,289 Kcal/89 g) during LOS. Burn Absent Trauma Absent GI Symptoms None Food Allergy No Skin Integrity/Comment Assessment WNL. Minimum of two criteria No Fluid Accumulation N/A Reduced Oil Program Compliance Specialist Strength N/A (non-severe) Protein-Calorie Malnutrition N\\A Is patient on ventilator? No Is Patient Ambulatory and/or Out of Bed No REE-([place]-confined to bed) 2349.732 Kcal/Kg value to use for calculation 20 Approximate Energy Requirements Using 2040 kcal/Kg Calculation Used for Recommendations Kcal/kg Additional Notes Protein: 0.8-1 g/Kg AdjBW; 71- 89 g/day. Fluids: 1 ml/Kcal, or as per MD. Nutrition Intervention Change Diet Order: Contrinue Regular Diet. Follow-Up By: 03/06/22 Additional Comments Continue monitoring food tolerance, %PO intake of meals , and BM.
[2022-02-28] MEDS: ENOXAPARIN 40 MG/0.4 ML INJ SUB-Q SCH (21:45)
--- NOTE | 2022-02-28 22:00 | Progress Note ---
Assessment and Plan 36 YO Male with MG currently taking Cellcept, Mycophenolate, and Prednisone presents ED for evaluation. Patient states that he had experienced generalized weakness over the past 1 day with progressive and worsening symptoms over the same timeframe. Patient states that he was able to walk earlier today but he is unable to walk. Patient also acknowledges upper extremity weakness as well as difficulty speaking. EMS was notified and upon arrival the patient was found to be in distress and subsequently transported to [facility] for further care and evaluation of the aforementioned symptoms. The patient was seen and evaluated in the emergency department. All lab and imaging studies reviewed. Patient found to have myasthenia gravis crisis with increased risk for worsening symptoms as well as development of acute hypoxemic respiratory failure. Patient placed on noninvasive positive pressure ventilation in the emergency department and admitted to ICU. IVIG ordered in the emergency department. Patient denies fever, chills, chest pain, palpitation productive cough, skin rash and recent Contact, known exposure to COVID-19. Patient eventually intubated and placed on mechanical ventilation. Patient extubated now. Patient has history vaping 2 times a day x 14 years. Stopped vaping 3 years ago. Denies alcohol abuse. Used Marijuna in his teenage years. Not used Marijuana for long time. 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 Not . Has no children. No known drug allergies. Patient has history of Sleep apnea. Uses CPAP 12 cm H2O during night time. Patient moved to medical floor. Patient Obese, awake. Resting on room air. O2 saturation 96%. CPAP standby in the room. No acute respiratory distress at rest. No complaints of chest pain, shortness of breath, or cough. Patient afebrile. No leukocytosis, Blood pressure 116/58 rate 77 respirations 20. Chest xray 02/10/22 Previous density of the left has almost completely cleared w ith only minimal basilar atelectasis remaining. Right lung field clear. No pneumothorax. CT scan of chest 02/08/[address] evidence of thymoma. Hypoattenuating lesions of the liver statistically reflect hepatic hemangiomas. One of these lesions demonstrate characteristic peripheral puddling of contrast, the second does not clearly demonstrate specific pattern of enhancement. Ultrasound targeting these lesions may be useful for further characterization and confirmation of hemangioma. Moderate subsegmental atelectasis of the bilateral lungs. Satisfactory positioning of endotracheal tube and esophagogastric tube. Chest xray done 02/17/22 reported No significant pulmonary or pleural abnormality. No pneumothorax. Left rib series done on 02/18/22 reported he left ribs appear unremarkable. There is no visible left rib fracture. No acute pulmonary disease. Patient is on Po Prednisone, Albuterol inhaler, S/C Lovenox and famotidine. I - Patient Problems (1) Acute hypoxemic respiratory failure Current Visit: Yes Status: Acute Plan to address problem: CPAP during night time. Continue prednisone. Continue S/C Lovenox. Continue famotidine. Albuterol inhaler prn for shortness of breath. (2) Obesity Current Visit: Yes Status: Acute Qualifiers: Body mass index: BMI 33.0-33.9 Plan to address problem: Counseled to loose weight Exercise and diet. (3) Sleep apnea Current Visit: Yes Status: Acute Plan to address problem: Patient says he has history of sleep apnea. No sleep study results available at this time. Continue CPAP as she is using at home. Recommend to loose weight. Explained sleep hygiene. Recommend not to drive or operate heavy equipment with sleepiness. Avoid alcohol, sedatives and Narcotics If sleep study is while back, recommend to repeat sleep study as out patient. (4) Myasthenia gravis Current Visit: Yes Status: Acute Plan to address problem: Patient finished course of plasmapheresis. Management as per primary care and neurology. Subjective Date of service: 02/28/22 Principal diagnosis: Myasthenic crisis; Obesity; Possible ANTON/OHS; Blurry vision; Hypokalemia Interval history: 36 YO Male with MG currently taking Cellcept, Mycophenolate, and Prednisone presents ED for evaluation. Patient states that he had experienced generalized weakness over the past 1 day with progressive and worsening symptoms over the same timeframe. Patient states that he was able to walk earlier today but he is unable to walk. Patient also acknowledges upper extremity weakness as well as difficulty speaking. EMS was notified and upon arrival the patient was found to be in distress and subsequently transported to [facility] for further care and evaluation of the aforementioned symptoms. The patient was seen and evaluated in the emergency department. All lab and imaging studies reviewed. Patient found to have myasthenia gravis crisis with increased risk for worsening symptoms as well as development of acute hypoxemic respiratory failure. Patient placed on noninvasive positive pressure ventilation in the emergency department and admitted to ICU. IVIG ordered in the emergency department. Patient denies fever, chills, chest pain, palpitation productive cough, skin rash and recent Contact, known exposure to COVID-19. Patient eventually intubated and placed on mechanical ventilation. Patient extubated now. Patient has history vaping 2 times a day x 14 years. Stopped vaping 3 years ago. Denies alcohol abuse. Used Marijuna in his teenage years. Not used Marijuana for long time. 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 Not . Has no children. No known drug allergies. Patient has history of Sleep apnea. Uses CPAP 12 cm H2O during night time. Patient moved to medical floor. Patient Obese, awake. Resting on room air. O2 saturation 96%. CPAP standby in the room. No acute respiratory distress at rest. No complaints of chest pain, shortness of breath, or cough. Patient afebrile. No leukocytosis, Blood pressure 116/58 rate 77 respirations 20. Chest xray 02/10/22 Previous density of the left has almost completely cleared with only minimal basilar atelectasis remaining. Right lung field clear. No pneumothorax. CT scan of chest 02/08/[address] evidence of thymoma. Hypoattenuating lesions of the liver statistically reflect hepatic hemangiomas. One of these lesions demonstrate characteristic peripheral puddling of contrast, the second does not clearly demonstrate specific pattern of enhancement. Ultrasound targeting these lesions may be useful for further characterization and confirmation of hemangioma. Moderate subsegmental atelectasis of the bilateral lungs. Satisfactory positioning of endotracheal tube and esophagogastric tube. Chest xray done 02/17/22 reported No significant pulmonary or pleural abnormality. No pneumothorax. Left rib series done on 02/18/22 reported he left ribs appear unremarkable. There is no visible left rib fracture. No acute pulmonary disease. Patient is on Po Prednisone, Albuterol inhaler, S/C Lovenox and famotidine. Objective Vital Signs - 12hr 02/28/22 02/28/22 02/28/22 10:00 21:13 21:42 Temperature 98.7 F Pulse Rate 64 Respiratory 20 18 Rate Blood Pressure 113/65 [Right] O2 Sat by Pulse 96 96 97 Oximetry Constitutional: no acute distress, alert, other (young obese male without increased respiratory effort at rest) Eyes: non-icteric ENT: oropharynx moist Neck: supple, no lymphadenopathy, no JVD, other (large circumference) Effort: normal Ascultation: Bilateral: diminished breath sounds Percussion: Bilateral: not dull Cardiovascular: regular rate and rhythm Gastrointestinal: normoactive bowel sounds, soft, non-tender, non-distended (protuberant) Integumentary: normal Extremities: no cyanosis, no edema, pulses normal, no ischemia or petechiae Neurologic: non-focal exam (grossly), pupils equal and round, CN II-XII normal, other (weak (3-4/5)) Psychiatric: mood appropriate, affect normal CBC and BMP: 02/24/22 04:03 02/24/22 04:03 ABG, PT/INR, D-dimer: ABG ABG pH 7.333 pH Units (7.350-7.450) L 02/08/22 09:20 ABG pCO2 48.2 mm Hg 02/08/22 09:20 ABG pO2 114.7 mm Hg (80.0-90.0) H 02/08/22 09:20 ABG O2 Saturation 97.9 % (95.0-99.0) 02/08/22 09:20 Abnormal lab findings: Abnormal Labs 02/06/22 02/06/22 02/06/22 12:39 12:39 13:59 WBC RBC 5.75 H Hgb Hct MCV 74 L MCH 23 L MCHC 30 L RDW 16.9 H Lymph % (Auto) 6.4 L [place] % (Auto) Lymph # (Auto) 0.5 L [place] # (Auto) Seg Neutrophils % 89.3 H Seg Neutrophils # Fibrinogen ABG pH ABG pO2 ABG Hemoglobin 12.6 L Oxyhemoglobin Potassium 3.5 L Chloride 109.1 H Carbon Dioxide 20 L Creatinine 0.7 L Glucose 113 H Alkaline Phosphatase Total Protein Albumin 02/07/22 02/07/22 02/08/22 04:15 12:00 04:23 WBC RBC 5.10 H Hgb 11.5 L 11.0 L Hct MCV 72 L 74 L MCH 23 L 22 L MCHC 30 L RDW 17.3 H 17.1 H Lymph % (Auto) [place] % (Auto) 9.1 H Lymph # (Auto) [place] # (Auto) Seg Neutrophils % Seg Neutrophils # Fibrinogen ABG pH ABG pO2 72.6 L ABG Hemoglobin 12.2 L Oxyhemoglobin 94.4 L Potassium Chloride Carbon Dioxide Creatinine Glucose Alkaline Phosphatase Total Protein Albumin 02/08/22 02/08/22 02/09/22 04:23 09:20 04:50 WBC RBC Hgb 10.4 L Hct 33.7 L MCV 73 L MCH 22 L MCHC 31 L RDW 17.5 H Lymph % (Auto) [place] % (Auto) Lymph # (Auto) [place] # (Auto) Seg Neutrophils % Seg Neutrophils # Fibrinogen ABG pH 7.333 L ABG pO2 114.7 H ABG Hemoglobin 11.1 L Oxyhemoglobin Potassium Chloride 109.3 H Carbon Dioxide Creatinine 0.6 L Glucose Alkaline Phosphatase Total Protein Albumin 02/09/22 02/10/22 02/11/22 04:50 04:50 04:38 WBC 4.4 L 3.3 L RBC Hgb 10.1 L 10.4 L Hct 32.9 L 33.6 L MCV 73 L 73 L MCH 22 L 23 L MCHC 31 L 31 L RDW 17.2 H 17.0 H Lymph % (Auto) [place] % (Auto) Lymph # (Auto) [place] # (Auto) Seg Neutrophils % Seg Neutrophils # Fibrinogen ABG pH ABG pO2 ABG Hemoglobin Oxyhemoglobin Potassium Chloride Carbon Dioxide Creatinine Glucose 107 H Alkaline Phosphatase Total Protein Albumin 02/11/22 02/12/22 02/13/22 04:38 04:25 04:17 WBC 3.7 L 3.5 L RBC Hgb 10.5 L 10.8 L Hct 34.5 L MCV 73 L 73 L MCH 22 L 22 L MCHC 30 L 30 L RDW 16.9 H 17.5 H Lymph % (Auto) [place] % (Auto) Lymph # (Auto) [place] # (Auto) Seg Neutrophils % Seg Neutrophils # Fibrinogen ABG pH ABG pO2 ABG Hemoglobin Oxyhemoglobin Potassium Chloride Carbon Dioxide Creatinine 0.7 L Glucose 101 H Alkaline Phosphatase Total Protein Albumin 02/16/22 02/16/22 02/18/22 04:52 04:52 07:18 WBC RBC Hgb 11.4 L 11.4 L Hct 35.3 L MCV 71 L 72 L MCH 23 L 23 L MCHC RDW 17.4 H 17.3 H Lymph % (Auto) 43.5 H [place] % (Auto) 7.6 H 7.6 H Lymph # (Auto) [place] # (Auto) Seg Neutrophils % 71.5 H Seg Neutrophils # Fibrinogen ABG pH ABG pO2 ABG Hemoglobin Oxyhemoglobin Potassium Chloride Carbon Dioxide Creatinine 0.6 L Glucose Alkaline Phosphatase Total Protein Albumin 3.5 L 02/18/22 02/18/22 02/20/22 07:18 07:18 04:23 WBC RBC 5.22 H Hgb 11.6 L Hct MCV 73 L MCH 22 L MCHC 31 L RDW 18.0 H Lymph % (Auto) [place] % (Auto) Lymph # (Auto) [place] # (Auto) Seg Neutrophils % Seg Neutrophils # Fibrinogen 144 L* ABG pH ABG pO2 ABG Hemoglobin Oxyhemoglobin Potassium Chloride Carbon Dioxide Creatinine 0.5 L Glucose Alkaline Phosphatase Total Protein Albumin 02/20/22 02/20/22 02/21/22 04:23 04:23 09:50 WBC 13.1 H RBC 5.36 H Hgb Hct MCV 73 L MCH 22 L MCHC 31 L RDW 18.4 H Lymph % (Auto) [place] % (Auto) Lymph # (Auto) [place] # (Auto) 1.0 H Seg Neutrophils % Seg Neutrophils # 8.5 H Fibrinogen 89 L* ABG pH ABG pO2 ABG Hemoglobin Oxyhemoglobin Potassium Chloride Carbon Dioxide Creatinine 0.5 L Glucose 107 H Alkaline Phosphatase Total Protein Albumin 02/21/22 02/21/22 02/22/22 09:50 09:50 03:30 WBC 11.7 H RBC 5.16 H Hgb 11.4 L Hct MCV 73 L MCH 22 L MCHC 31 L RDW 18.5 H Lymph % (Auto) [place] % (Auto) Lymph # (Auto) [place] # (Auto) Seg Neutrophils % Seg Neutrophils # Fibrinogen 100 L* ABG pH ABG pO2 ABG Hemoglobin Oxyhemoglobin Potassium Chloride Carbon Dioxide Creatinine 0.7 L Glucose Alkaline Phosphatase Total Protein Albumin 02/22/22 02/22/22 02/23/22 03:30 10:11 04:08 WBC 11.4 H RBC Hgb 10.5 L Hct 33.9 L MCV 72 L MCH 22 L MCHC 31 L RDW 19.3 H Lymph % (Auto) [place] % (Auto) Lymph # (Auto) [place] # (Auto) Seg Neutrophils % Seg Neutrophils # Fibrinogen 114 L* ABG pH ABG pO2 ABG Hemoglobin Oxyhemoglobin Potassium Chloride Carbon Dioxide Creatinine 0.5 L Glucose Alkaline Phosphatase Total Protein 5.8 L Albumin 02/23/22 02/24/22 02/24/22 04:08 04:03 04:03 WBC RBC Hgb 10.3 L Hct 33.2 L MCV 72 L MCH 22 L MCHC 31 L RDW 19.0 H Lymph % (Auto) [place] % (Auto) Lymph # (Auto) [place] # (Auto) Seg Neutrophils % Seg Neutrophils # Fibrinogen 68 L* ABG pH ABG pO2 ABG Hemoglobin Oxyhemoglobin Potassium Chloride Carbon Dioxide Creatinine 0.5 L Glucose Alkaline Phosphatase 23 L Total Protein 5.2 L Albumin 02/24/22 04:03 WBC RBC Hgb Hct MCV MCH MCHC RDW Lymph % (Auto) [place] % (Auto) Lymph # (Auto) [place] # (Auto) Seg Neutrophils % Seg Neutrophils # Fibrinogen ABG pH ABG pO2 ABG Hemoglobin Oxyhemoglobin Potassium Chloride Carbon Dioxide Creatinine 0.5 L Glucose Alkaline Phosphatase Total Protein Albumin Allied health notes reviewed: nursing
[2022-02-28] MEDS: ACETAMINOPHEN 325 MG TAB PO PRN (23:28)
[2022-03-01] MEDS: PYRIDOSTIGMINE BROMIDE 60 MG TAB PO SCH ×5 (00:10→23:00)
--- NOTE | 2022-03-01 08:09 | Progress Note ---
Assessment and Plan Assessment and plan: This is a 36-year-old male with known past medical history of obesity and myasthenia gravis admitted for myasthenia gravis crisis. 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 He was passing through [place] when symptoms started - S/p emergent intubation by anethesia - CT chest w con showed no evidence of thymoma - Neurology consulted, appreciated recommendations - Resumed home meds: Cellcept, Mestinon, and PO Prednisone - Completed X 5 days of IVIG - Plasma exchange initiated on 02/16, Received X2 treament. For a total of 5 exchanges to be completed over 9 days. - CCM also on consult, appreciated recommendations - Patient reported that his neurologist in [place] is Dr. Billie Delgado - Transfer to [facility] was declined, no available ICU beds at this time. They recommend continuing IVIG and possible plasma exchange -Plasmapheresis being done today and FFP's were ordered as fibrinogen is low #Acute Hypoxemic Respiratory Failure #Probable ANTON- On CPAP at home #Former Smoker - most likely related to MG crisis - S/p emergent intubation by anesthesia on 02/07 for airway protection - 02/09 s/p extubation - Stable on RA this am - CCM consulted, appreciate recommendations - Completed X5 days of IVIG - Continue plasma exchange and IS ordered - Continue Bipap at night - Aspiration precaution HOB above 30 - PRN O2 supplementation as needed - Continue SPO2 monitoring for SPO2 goal above 92% #Hepatic Hemangiomas - noted fro CT chest w/o con - Stable, LFTs within normal range - Outpatient follow up for US and further workups #Obesity - Balanced diet, increase physical activity discharge, outpatient pulmonary follow-up for sleep study, weight reduction. #GI/DVT Prophylaxis - PPI- Pepcid - Lovenox SubQ - SCD to bilateral lower extremities while in bed Hospital Course to Date: 02/07: S/p X1 dose of IV IG overnight, patient reported feeling much better and stronger this am, moving all extremities. Plan to wean off Bipap this am. Okay to start a diet if patient pass bedside swallow. D/W CCM plan for CT chest w con tomorrow to r/o thymoma. Neurology consulted. 02/08: S/p emergent intubation by anethesia yesterday. Now intubated and sedated, RASS -2. Neurology recommendations noted. Resumed home meds. Will wean off sedation this am for possible SAT/SBT. CT chest also noted with no evidence of thymoma. Continue IVIG. Attending received call back from [facility]. Transfer was declined, no available ICU beds at this time. They recommend continuing IVIG and possible plasma exchange. Awaiting on Neurology final recommendations. 02/09: S/p Extubation this am. Desated to 85% on 3L NC, SPO2 improved to 88% on 8L NC. This am CXR noted, worsen opacity of the left side. CCM at the bedside, X1 dose of IV Lasix ordered and place patient on Bipap. Low Threshold for reintubation. Plan of care and the high probability for reintubation was discussed with patient at the bedside. Patient verbalized understanding and agree with current care plan. Continue IVIG, Awaiting on Neurology final recommendations. 02/10: Tolerated Bipap, now on 2L NC this am, SPO2 at 100%. No s/s of any acute respiratory distress noted. This am CXR also noted with significant improvement. Continue IVIGm and Bipap at night. Incentive Spirometer also ordered. advance diet as tolerated. PT/OT/Speech consulted. 02/11: Completed x5days of IVIG overnight. Stable on RA, still complaining of generalized weakness, other stable. Diet advanced to solid this am, patient is tolerating it. Continue IS and Bipap at night. Encourage mobility as tolerated, PT/OT/Speech consult pending. 02/12: CPAP prn, currently on RA. Improved strength to BLE and BUE per patient. 02/13: Increased weakness reported on encounter. increased steroid dose to prednisone 40 mg po daily. Continue pyridostigmine and cellcept. Possible d/c tomorrow. 02/14: Weakness improved however still continues to have difficulty with stre ngth. Still has right eye lid droop. Patient increased to prednisone 60 mg po daily. He has had 4 myasthenia gravis crises in the past and was initiated on high dose steroids with watermelon inspector taper by her OP neurologist. Pt recommended home with home health care PT. Ambulation is challenging as patient requires a rolling walker. 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 Patient is not a resident of [place]. States his home state is [place]. He has a sister in [place] who's address he uses for mailing purposes. Will work with CM to coordinate placement. 02/15: worsened strength. Admits to dysphagia and shortness of breath today. Given worsening symptmology transferring back to ICU for close monitoring. Plasma exchange ordered, first tx tomorrow, coordinated with Dr Katya Manley. Will place vascath today/tomorrow AM for exchanges. Steroid dose increased to Prednisone 80 mg po daily in interim. Will attempt to call neurologist tomorrow AM. 02/16: Plan for plasma exchange today. Labs reviewed, cbc/bmp/fibrinogen all unremarkable. Trialysis catheter placed, pt tolerated procedure well. Taryn Manley will be here today do 4L exchange. A total of 5 exchanges will be completed over 9 days. A total of 20 L 5% albumin will be needed, pharmacy was notified yesterday of this. Continue prednisone 80 mg po daily dose. 02/17: No overnight events. No acute complaints. Tolerated PLEX well. Continue steroids and will follow for symptom improvement. 02/18: Plex tx today. XR ordered due to severe rib pain, no rib fx ID. Will continue to follow for sx improvement. 02/19: Doing much better this am. OOB and sitting up in the chair this am, stable on RA. Still complaining of generalized but reported feeling better. Continue plasma exchange and PO prednisone, cellcept, and Mycophenolate. Continue PT/OT. 02/20: Patient seen and examined, clinically showing some improvement, will continue on current Prednisone Dose, patients fibrinogen is lower than 100, we do not have plasma inhouse, patient will undergo PLEX with Albumin and recieve Cyroprecipitated (Ordered) after per the [facility] team. Continue to monitor NIF Continue IMCU care in this critically ill patient. 02/21: Tolerated PLEX yesterday, Fibrinogen improved to 100. Patient has leukocytosis today without fever, no new neuro deficits reported today. Will request Neuro-revaluation. Case management continues to work on safe discharge plan. Plan discussed with the patient. Dispo based on evaluation by Neuro 02/22: Patient seen and examined today, awaiting 4/5 PLEX therapy, awaiting Neurology re-evaluation. Discussed with case management and patient about discharge plans. 02/23: Patient seen and examined, Neurology input noted: change mestinon from 180 mg po qday to 60 mg po tid; prednisone from 80 mg po qday to 40 mg po qday; continue cellcept (per home regimen); plex 4/5 ongoing at bedside today; pt/ot/st evaluation/monitoring; f/u established neurologist within 2 weeks post- discharge. Patient can be discharged after THE LAST PLEX TOMORROW. 02/24/2022 Patient receiving plasma exchange and FFP's 02/25/2022 Patient finished course of plasma exchanges and FFP's Patient to be tapered on prednisone from 80 mg Had extensive discussion with the patient Patient lives in [place] and is on Mestinon and prednisone Patient is willing to fly back to [place] and follow-up with his PCP Patient to be discharged on prednisone tapering dose 60 mg for 5 days 40 mg for 5 days 20 mg for 5 days and then continue at 10 mg 02/26/2022. Patient completed plasma exchange and FFP. Continue prednisone taper. Apparently, pulmonary wants to continue to monitor the patient for 24 hours. Anticipate discharge later today or in a.m. 02/27/2022: Discharge home today. rx for prednisone, mestinon, and cellcept provided. 02/28; d/c cancelled yesterday as patient was experiencing weakness. Feels as though he is "flaring" Mestonin increased to 120 mg q6hr. Monitor for anticholinergic side effects. Continue prednisone at high dose and continue cellcept at home dose 1000 mg po bid. Again this patient likely has suboptimal maintenance therapy...do not lower prednisone dose at this time . PT eval and continued exercises ordered. Unfortunately placement of this patient will be challenging as he lives out of his truck and insurance status will make his placement tough. 02/28: Continue med therapy for MG. PT recommend [facility] w/ rolling walker. will to continue to work with patient today. Extensive discussion with CM re: placement during rounds today. Will work towards safe discharge plan. History Interval history: Patient seen and evaluated at bedside. He states he feels the same. He still requiring rolling walker for ambulation. Physical therapy to continue working with patient today. He denies any issues with dysphagia, shortness of breath, chest pain. Hospitalist Physical - Physical exam Narrative exam: Narrative exam: General appearance: Present: no acute distress, well-nourished, obese - EENT Eyes: Present: PERRL ENT: dentition normal, hearing decreased - Neck Neck: Present: normal ROM - Respiratory Respiratory effort: normal Respiratory: bilateral: diminished - Cardiovascular Rhythm: regular Heart Sounds: Present: S1 & S2. Absent: systolic murmur, diastolic murmur - Extremities Extremities: no ischemia, pulses intact, pulses symmetrical, No edema, normal temperature, normal color Peripheral Pulses: within normal limits - Abdominal General gastrointestinal: soft, non-tender, non-distended, normal bowel sounds - Integumentary Integumentary: Present: warm, dry - Psychiatric Psychiatric: appropriate mood/affect, cooperative - Neurologic Neurologic: no focal deficits, moves all extremities - Allied Health Allied health notes reviewed: nursing, RT, social work - Constitutional Vitals: Temp Pulse Resp BP Pulse Ox 97.4 F L 47 L 18 103/59 100 03/01/22 05:58 03/01/22 05:58 03/01/22 05:58 03/01/22 05:58 03/01/22 05:58 General appearance: Present: no acute distress, well-nourished Results - Labs CBC & Chem 7: 02/24/22 04:03 02/24/22 04:03 Labs: Laboratory Last Values WBC 10.4 K/mm3 (4.5-11.0) 02/24/22 04:03 RBC 4.60 M/mm3 (3.65-5.03) 02/24/22 04:03 Hgb 10.3 gm/dl (11.8-15.2) L 02/24/22 04:03 Hct 33.2 % (35.5-45.6) L 02/24/22 04:03 MCV 72 fl (84-94) L 02/24/22 04:03 MCH 22 pg (28-32) L 02/24/22 04:03 MCHC 31 % (32-34) L 02/24/22 04:03 RDW 19.0 % (13.2-15.2) H 02/24/22 04:03 Plt Count 235 K/mm3 (140-440) 02/24/22 04:03 Lymph % (Auto) 27.4 % (13.4-35.0) 02/21/22 09:50 [place] % (Auto) 7.3 % (0.0-7.3) 02/21/22 09:50 Eos % (Auto) 0.1 % (0.0-4.3) 02/21/22 09:50 Baso % (Auto) 0.2 % (0.0-1.8) 02/21/22 09:50 Lymph # (Auto) 3.6 K/mm3 (1.2-5.4) 02/21/22 09:50 [place]ock # (Auto) 1.0 K/mm3 (0.0-0.8) H 02/21/22 09:50 Eos # (Auto) 0.0 K/mm3 (0.0-0.4) 02/21/22 09:50 Baso # (Auto) 0.0 K/mm3 (0.0-0.1) 02/21/22 09:50 Seg Neutrophils % 65.0 % (40.0-70.0) 02/21/22 09:50 Seg Neutrophils # 8.5 K/mm3 (1.8-7.7) H 02/21/22 09:50 Fibrinogen 68 mg/dl (211-480) L* 02/24/22 04:03 ABG pH 7.333 pH Units (7.350-7.450) L 02/08/22 09:20 ABG pCO2 48.2 mm Hg 02/08/22 09:20 ABG pO2 114.7 mm Hg (80.0-90.0) H 02/08/22 09:20 ABG HCO3 25.0 mmol/L (20.0-26.0) 02/08/22 09:20 ABG O2 Saturation 97.9 % (95.0-99.0) 02/08/22 09:20 ABG O2 Content 15.1 (0.0-44) 02/08/22 09:20 ABG Base Excess -1.1 mmol/L (-2.0-3.0) 02/08/22 09:20 ABG Hemoglobin 11.1 gm/dl (14.0-18.0) L 02/08/22 09:20 ABG Carboxyhemoglobin 1.4 % (0.0-5.0) 02/08/22 09:20 ABG Methemoglobin 0.5 % (0.0-1.5) 02/08/22 09:20 Oxyhemoglobin 96.1 % (95.0-99.0) 02/08/22 09:20 FiO2 35 % 02/08/22 09:20 Sodium 141 mmol/L (137-145) 02/24/22 04:03 Potassium 3.8 mmol/L (3.6-5.0) 02/24/22 04:03 Chloride 106.2 mmol/L (98-107) 02/24/22 04:03 Carbon Dioxide 27 mmol/L (22-30) 02/24/22 04:03 Anion Gap 12 mmol/L 02/24/22 04:03 BUN 10 mg/dL (9-20) 02/24/22 04:03 Creatinine 0.5 mg/dL (0.8-1.3) L 02/24/22 04:03 Estimated GFR > 60 ml/min 02/24/22 04:03 BUN/Creatinine Ratio 20 % 02/24/22 04:03 Glucose 81 mg/dL (75-100) 02/24/22 04:03 Calcium 8.8 mg/dL (8.4-10.2) 02/24/22 04:03 Total Bilirubin 0.30 mg/dL (0.1-1.2) 02/23/22 04:08 AST 9 units/L (5-40) 02/23/22 04:08 ALT 11 units/L (7-56) 02/23/22 04:08 Alkaline Phosphatase 23 units/L (35-129) L 02/23/22 04:08 Total Protein 5.2 g/dL (6.3-8.2) L 02/23/22 04:08 Albumin 4.8 g/dL (3.9-5) 02/23/22 04:08 Albumin/Globulin Ratio 12.0 % 02/23/22 04:08 Actin IgG Antibody <20 U (<20) 02/16/22 04:52 Blood Type O POSITIVE 02/24/22 11:33 Antibody Screen Negative 02/24/22 11:33 Roberson/IV: Voiding Method Toilet Active Medications - Current Medications Current Medications: Generic Name Dose Route Start Last Admin Trade Name Freq PRN Reason Stop Dose Admin Acetaminophen 650 mg 02/06/22 15:00 02/28/22 23:28 Acetaminophen 325 Mg Tab PO 650 mg Q6H PRN Administration Pain MILD(1-3)/Fever >100.5/WEINBERG Albuterol 2.5 mg 02/06/22 15:00 02/15/22 21:54 Albuterol 2.5 Mg/3 Ml Nebu IH 2.5 mg Q3HRT PRN Administration Shortness Of Breath Diphenhydramine HCl 25 mg 02/15/22 14:06 02/16/22 11:49 Diphenhydramine 50 Mg/Ml Vial IV 25 mg Q6H PRN Administration Itching Enoxaparin Sodium 40 mg 02/06/22 22:00 02/28/22 21:45 Enoxaparin 40 Mg/0.4 Ml Inj SUB-Q 40 mg QDAY@2200 NESTOR Administration Protocol Famotidine 20 mg 02/12/22 10:00 02/28/22 21:44 Famotidine 20 Mg Tab PO 20 mg BID NESTOR Administration Hydrophilic Ointment 1 applic 02/07/22 10:55 Lip Therapy Vaseline TP Q2HR PRN Dry Lips Melatonin 5 mg 02/21/22 01:15 02/27/22 23:33 Melatonin 5 Mg Tab PO 5 mg QHS PRN Administration Sleep Multi-Ingred Cream/Lotion/Oil/Oint 1 applic 02/07/22 10:55 Mineral Oil/Petrolatum, White Ophth Oint 3.5 Gm OU Q4HR PRN Dry Eye(s) Mycophenolate Mofetil 1,000 mg 02/21/22 10:00 02/28/22 21:44 Mycophenolate 500 Mg Tab PO 1,000 mg BID NESTOR Administration Ondansetron HCl 4 mg 02/08/22 17:00 02/20/22 23:58 Ondansetron 4 Mg/2 Ml Inj IV 4 mg Q8H PRN Administration Nausea And Vomiting Oxycodone/Acetaminophen 1 tab 02/06/22 15:00 02/27/22 23:32 Oxycodone /Acetaminophen 5-325mg Tab PO 1 tab Q16H PRN Administration Pain, Moderate (4-6) Prednisone 60 mg 02/28/22 10:00 02/28/22 09:38 Prednisone 20 Mg Tab PO 60 mg QDAY NESTOR Administration Pyridostigmine Latty 120 mg 02/27/22 19:00 03/01/22 05:59 Pyridostigmine Latty 60 Mg Tab PO 120 mg Q6HR NESTOR Administration Senna/Docusate Sodium 1 tab 02/12/22 10:00 02/28/22 21:44 Sennosides/Docusate Sodium 8.6/50 Mg Tab PO 1 tab BID NESTOR Administration Sodium Chloride 10 ml 02/06/22 22:00 02/28/22 21:45 Sodium Chloride 0.9% 10 Ml Flush Syringe IV 10 ml BID NESTOR Administration Sodium Chloride 10 ml 02/06/22 13:59 Sodium Chloride 0.9% 10 Ml Flush Syringe IV PRN PRN LINE FLUSH Nutrition/Malnutrition Assess - Dietary Evaluation Nutrition/Malnutrition Findings: Nutrition Notes Start: 02/07/22 13:09 Freq: Status: Active Protocol: Document 02/27/22 14:07 PRADEEP (Rec: 02/27/22 14:34 PRADEEP [id number]) Nutrition Notes Initial or Follow up Reassessment Current Diagnosis Respiratory Failure Other Pertinent Diagnosis Myasthenia Gravis, ANTON, Hepatic Hemangiomas. Current Diet Regular Diet (since L 02/19). Labs/Tests 02/27: Crea 0.5. Pertinent Medications 02/27: Nutritionally unremarkable. Height 5 ft 10 in Weight 102 kg [place] Body Weight (kg) 75.45 BMI 32.2 Weight change and time frame No body weight change reported in 1 week. Weight Status Obese Subjective/Other Information RD consult for routine F/U on dietary advancement. No further reports available on Pt's PO intake of meals, will assess at F/U if possible . Pt is on Room Air, O2 saturation @ 96%, according to Physical Assessment History notes. Pt finished plasma exchange tratment and is cleared for discharge home with family, according to Progress notes. Percent of energy/protein needs met: Prescribed Regular Diet provides for energy/protein needs (2,289 Kcal/89 g) during LOS. Burn Absent Trauma Absent GI Symptoms None Food Allergy No Skin Integrity/Comment Assessment WNL. Minimum of two criteria No Fluid Accumulation N/A Reduced Sailing Master Strength N/A (non-severe) Protein-Calorie Malnutrition N\\A Is patient on ventilator? No Is Patient Ambulatory and/or Out of Bed No REE-([facility]-confined to bed) 2349.732 Kcal/Kg value to use for calculation 20 Approximate Energy Requirements Using 2040 kcal/Kg Calculation Used for Recommendations Kcal/kg Additional Notes Protein: 0.8-1 g/Kg AdjBW; 71- 89 g/day. Fluids: 1 ml/Kcal, or as per MD. Nutrition Intervention Change Diet Order: Contrinue Regular Diet. Follow-Up By: 03/06/22 Additional Comments Continue monitoring food tolerance, %PO intake of meals , and BM.
[2022-03-01] MEDS: MYCOPHENOLATE 500 MG TAB PO SCH ×2 (09:55→22:55)
[2022-03-01] MEDS: SENNOSIDES/DOCUSATE SODIUM 8.6/50 MG TAB PO SCH ×2 (09:55→22:54)
[2022-03-01] MEDS: FAMOTIDINE 20 MG TAB PO SCH ×2 (09:56→22:55)
[2022-03-01] MEDS: predniSONE 20 MG TAB PO SCH (09:56)
--- NOTE | 2022-03-01 20:38 | Progress Note ---
Assessment and Plan 36 YO Male with MG currently taking Cellcept, Mycophenolate, and Prednisone presents ED for evaluation. Patient states that he had experienced generalized weakness over the past 1 day with progressive and worsening symptoms over the same timeframe. Patient states that he was able to walk earlier today but he is unable to walk. Patient also acknowledges upper extremity weakness as well as difficulty speaking. EMS was notified and upon arrival the patient was found to be in distress and subsequently transported to [facility] for further care and evaluation of the aforementioned symptoms. The patient was seen and evaluated in the emergency department. All lab and imaging studies reviewed. Patient found to have myasthenia gravis crisis with increased risk for worsening symptoms as well as development of acute hypoxemic respiratory failure. Patient placed on noninvasive positive pressure ventilation in the emergency department and admitted to ICU. IVIG ordered in the emergency department. Patient denies fever, chills, chest pain, palpitation productive cough, skin rash and recent Contact, known exposure to COVID-19. Patient eventually intubated and placed on mechanical ventilation. Patient extubated now. Patient has history vaping 2 times a day x 14 years. Stopped vaping 3 years ago. Denies alcohol abuse. Used Marijuna in his teenage years. Not used Marijuana for long time. 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 Not . Has no children. No known drug allergies. Patient has history of Sleep apnea. Uses CPAP 12 cm H2O during night time. Patient moved to medical floor. Patient Obese, sleeping. Resting on room air. O2 saturation 97%. No acute respiratory distress at rest. Cpap on standy in the room. Patient afebrile. No leukocytosis, Blood pressure 129/67, rate 75, respirations 16. Chest xray 02/10/22 Previous density of the left has almost completely cleared with only minimal basilar atelectasis remaining. Right lung field clear. No pneumothorax. CT scan of chest 02/08/[address] evidence of thymoma. Hypoattenuating lesions of the liver statistically reflect hepatic hemangiomas. One of these lesions demonstrate characteristic peripheral puddling of contrast, the second does not clearly demonstrate specific pattern of enhancement. Ultrasound targeting these lesions may be useful for further characterization and confirmation of hemangioma. Moderate subsegmental atelectasis of the bilateral lungs. Satisfactory positioning of endotracheal tube and esophagogastric tube. Chest xray done 02/17/22 reported No significant pulmonary or pleural abnormality. No pneumothorax. Left rib series done on 02/18/22 reported he left ribs appear unremarkable. There is no visible left rib fracture. No acute pulmonary disease. Patient is on Po Prednisone, Albuterol inhaler, S/C Lovenox and famotidine. I - Patient Problems (1) Acute hypoxemic respiratory failure Current Visit: Yes Status: Acute Plan to address problem: CPAP during night time. Continue prednisone. Continue S/C Lovenox. Continue famotidine. Albuterol inhaler prn for shortness of breath. (2) Obesity Current Visit: Yes Status: Acute Qualifiers: Body mass index: BMI 33.0-33.9 Plan to address problem: Counseled to loose weight Exercise and diet. (3) Sleep apnea Current Visit: Yes Status: Acute Plan to address problem: Patient says he has history of sleep apnea. No sleep study results available at this time. Continue CPAP as she is using at home. Recommend to loose weight. Explained sleep hygiene. Recommend not to drive or operate heavy equipment with sleepiness. Avoid alcohol, sedatives and Narcotics If sleep study is while back, recommend to repeat sleep study as out patient. (4) Myasthenia gravis Current Visit: Yes Status: Acute Plan to address problem: Patient finished course of plasmapheresis. Management as per primary care and neurology. Subjective Date of service: 03/01/22 Principal diagnosis: Myasthenic crisis; Obesity; Possible ANTON/OHS; Blurry vision; Hypokalemia Interval history: 36 YO Male with MG currently taking Cellcept, Mycophenolate, and Prednisone presents ED for evaluation. Patient states that he had experienced generalized weakness over the past 1 day with progressive and worsening symptoms over the same timeframe. Patient states that he was able to walk earlier today but he is unable to walk. Patient also acknowledges upper extremity weakness as well as difficulty speaking. EMS was notified and upon arrival the patient was found to be in distress and subsequently transported to [facility] for further care and evaluation of the aforementioned symptoms. The patient was seen and evaluated in the emergency department. All lab and imaging studies reviewed. Patient found to have myasthenia gravis crisis with increased risk for worsening symptoms as well as development of acute hypoxemic respiratory failure. Patient placed on noninvasive positive pressure ventilation in the emergency department and admitted to ICU. IVIG ordered in the emergency department. Patient denies fever, chills, chest pain, palpitation productive cough, skin rash and recent Contact, known exposure to COVID-19. Patient eventually intubated and placed on mechanical ventilation. Patient extubated now. Patient has history vaping 2 times a day x 14 years. Stopped vaping 3 years ago. Denies alcohol abuse. Used Marijuna in his teenage years. Not used Marijuana f or long time. 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 Not . Has no children. No known drug allergies. Patient has history of Sleep apnea. Uses CPAP 12 cm H2O during night time. Patient moved to medical floor. Patient Obese, sleeping. Resting on room air. O2 saturation 97%. No acute respiratory distress at rest. Cpap on standy in the room. Patient afebrile. No leukocytosis, Blood pressure 129/67, rate 75, respirations 16. Chest xray 02/10/22 Previous density of the left has almost completely cleared w ith only minimal basilar atelectasis remaining. Right lung field clear. No pneumothorax. CT scan of chest 02/08/[address] evidence of thymoma. Hypoattenuating lesions of the liver statistically reflect hepatic hemangiomas. One of these lesions demonstrate characteristic peripheral puddling of contrast, the second does not clearly demonstrate specific pattern of enhancement. Ultrasound targeting these lesions may be useful for further characterization and confirmation of hemangioma. Moderate subsegmental atelectasis of the bilateral lungs. Satisfactory positioning of endotracheal tube and esophagogastric tube. Chest xray done 02/17/22 reported No significant pulmonary or pleural abnormality. No pneumothorax. Left rib series done on 02/18/22 reported he left ribs appear unremarkable. There is no visible left rib fracture. No acute pulmonary disease. Patient is on Po Prednisone, Albuterol inhaler, S/C Lovenox and famotidine. Objective Vital Signs - 12hr 03/01/22 03/01/22 03/01/22 10:00 11:29 16:05 Temperature 98.0 F 98.1 F Pulse Rate 73 75 Respiratory 20 16 16 Rate Blood Pressure 128/79 129/67 O2 Sat by Pulse 96 97 97 Oximetry Constitutional: no acute distress, asleep, other (young obese male without increased respiratory effort at rest) Eyes: non-icteric ENT: oropharynx moist Neck: supple, no lymphadenopathy, no JVD, other (large circumference) Effort: normal Ascultation: Bilateral: diminished breath sounds Percussion: Bilateral: not dull Cardiovascular: regular rate and rhythm Gastrointestinal: normoactive bowel sounds, soft, non-tender, non-distended (protuberant) Integumentary: normal Extremities: no cyanosis, no edema, pulses normal, no ischemia or petechiae Neurologic: non-focal exam (grossly), pupils equal and round, CN II-XII normal, other (weak (3-4/5)) Psychiatric: mood appropriate, affect normal CBC and BMP: 02/24/22 04:03 02/24/22 04:03 ABG, PT/INR, D-dimer: ABG ABG pH 7.333 pH Units (7.350-7.450) L 02/08/22 09:20 ABG pCO2 48.2 mm Hg 02/08/22 09:20 ABG pO2 114.7 mm Hg (80.0-90.0) H 02/08/22 09:20 ABG O2 Saturation 97.9 % (95.0-99.0) 02/08/22 09:20 Abnormal lab findings: Abnormal Labs 02/06/22 02/06/22 02/06/22 12:39 12:39 13:59 WBC RBC 5.75 H Hgb Hct MCV 74 L MCH 23 L MCHC 30 L RDW 16.9 H Lymph % (Auto) 6.4 L Gall[place] % (Auto) Lymph # (Auto) 0.5 L [place] # (Auto) Seg Neutrophils % 89.3 H Seg Neutrophils # Fibrinogen ABG pH ABG pO2 ABG Hemoglobin 12.6 L Oxyhemoglobin Potassium 3.5 L Chloride 109.1 H Carbon Dioxide 20 L Creatinine 0.7 L Glucose 113 H Alkaline Phosphatase Total Protein Albumin 02/07/22 02/07/22 02/08/22 04:15 12:00 04:23 WBC RBC 5.10 H Hgb 11.5 L 11.0 L Hct MCV 72 L 74 L MCH 23 L 22 L MCHC 30 L RDW 17.3 H 17.1 H Lymph % (Auto) Gall[place] % (Auto) 9.1 H Lymph # (Auto) [place] # (Auto) Seg Neutrophils % Seg Neutrophils # Fibrinogen ABG pH ABG pO2 72.6 L ABG Hemoglobin 12.2 L Oxyhemoglobin 94.4 L Potassium Chloride Carbon Dioxide Creatinine Glucose Alkaline Phosphatase Total Protein Albumin 02/08/22 02/08/22 02/09/22 04:23 09:20 04:50 WBC RBC Hgb 10.4 L Hct 33.7 L MCV 73 L MCH 22 L MCHC 31 L RDW 17.5 H Lymph % (Auto) [place] % (Auto) Lymph # (Auto) [place] # (Auto) Seg Neutrophils % Seg Neutrophils # Fibrinogen ABG pH 7.333 L ABG pO2 114.7 H ABG Hemoglobin 11.1 L Oxyhemoglobin Potassium Chloride 109.3 H Carbon Dioxide Creatinine 0.6 L Glucose Alkaline Phosphatase Total Protein Albumin 02/09/22 02/10/22 02/11/22 04:50 04:50 04:38 WBC 4.4 L 3.3 L RBC Hgb 10.1 L 10.4 L Hct 32.9 L 33.6 L MCV 73 L 73 L MCH 22 L 23 L MCHC 31 L 31 L RDW 17.2 H 17.0 H Lymph % (Auto) [place] % (Auto) Lymph # (Auto) [place] # (Auto) Seg Neutrophils % Seg Neutrophils # Fibrinogen ABG pH ABG pO2 ABG Hemoglobin Oxyhemoglobin Potassium Chloride Carbon Dioxide Creatinine Glucose 107 H Alkaline Phosphatase Total Protein Albumin 02/11/22 02/12/22 02/13/22 04:38 04:25 04:17 WBC 3.7 L 3.5 L RBC Hgb 10.5 L 10.8 L Hct 34.5 L MCV 73 L 73 L MCH 22 L 22 L MCHC 30 L 30 L RDW 16.9 H 17.5 H Lymph % (Auto) [place] % (Auto) Lymph # (Auto) [place] # (Auto) Seg Neutrophils % Seg Neutrophils # Fibrinogen ABG pH ABG pO2 ABG Hemoglobin Oxyhemoglobin Potassium Chloride Carbon Dioxide Creatinine 0.7 L Glucose 101 H Alkaline Phosphatase Total Protein Albumin 02/16/22 02/16/22 02/18/22 04:52 04:52 07:18 WBC RBC Hgb 11.4 L 11.4 L Hct 35.3 L MCV 71 L 72 L MCH 23 L 23 L MCHC RDW 17.4 H 17.3 H Lymph % (Auto) 43.5 H Gall[place] % (Auto) 7.6 H 7.6 H Lymph # (Auto) [place] # (Auto) Seg Neutrophils % 71.5 H Seg Neutrophils # Fibrinogen ABG pH ABG pO2 ABG Hemoglobin Oxyhemoglobin Potassium Chloride Carbon Dioxide Creatinine 0.6 L Glucose Alkaline Phosphatase Total Protein Albumin 3.5 L 02/18/22 02/18/22 02/20/22 07:18 07:18 04:23 WBC RBC 5.22 H Hgb 11.6 L Hct MCV 73 L MCH 22 L MCHC 31 L RDW 18.0 H Lymph % (Auto) [place] % (Auto) Lymph # (Auto) [place] # (Auto) Seg Neutrophils % Seg Neutrophils # Fibrinogen 144 L* ABG pH ABG pO2 ABG Hemoglobin Oxyhemoglobin Potassium Chloride Carbon Dioxide Creatinine 0.5 L Glucose Alkaline Phosphatase Total Protein Albumin 02/20/22 02/20/22 02/21/22 04:23 04:23 09:50 WBC 13.1 H RBC 5.36 H Hgb Hct MCV 73 L MCH 22 L MCHC 31 L RDW 18.4 H Lymph % (Auto) [place] % (Auto) Lymph # (Auto) [place] # (Auto) 1.0 H Seg Neutrophils % Seg Neutrophils # 8.5 H Fibrinogen 89 L* ABG pH ABG pO2 ABG Hemoglobin Oxyhemoglobin Potassium Chloride Carbon Dioxide Creatinine 0.5 L Glucose 107 H Alkaline Phosphatase Total Protein Albumin 02/21/22 02/21/22 02/22/22 09:50 09:50 03:30 WBC 11.7 H RBC 5.16 H Hgb 11.4 L Hct MCV 73 L MCH 22 L MCHC 31 L RDW 18.5 H Lymph % (Auto) [place] % (Auto) Lymph # (Auto) [place] # (Auto) Seg Neutrophils % Seg Neutrophils # Fibrinogen 100 L* ABG pH ABG pO2 ABG Hemoglobin Oxyhemoglobin Potassium Chloride Carbon Dioxide Creatinine 0.7 L Glucose Alkaline Phosphatase Total Protein Albumin 02/22/22 02/22/22 02/23/22 03:30 10:11 04:08 WBC 11.4 H RBC Hgb 10.5 L Hct 33.9 L MCV 72 L MCH 22 L MCHC 31 L RDW 19.3 H Lymph % (Auto) [place] % (Auto) Lymph # (Auto) [place] # (Auto) Seg Neutrophils % Seg Neutrophils # Fibrinogen 114 L* ABG pH ABG pO2 ABG Hemoglobin Oxyhemoglobin Potassium Chloride Carbon Dioxide Creatinine 0.5 L Glucose Alkaline Phosphatase Total Protein 5.8 L Albumin 02/23/22 02/24/22 02/24/22 04:08 04:03 04:03 WBC RBC Hgb 10.3 L Hct 33.2 L MCV 72 L MCH 22 L MCHC 31 L RDW 19.0 H Lymph % (Auto) [place] % (Auto) Lymph # (Auto) [place] # (Auto) Seg Neutrophils % Seg Neutrophils # Fibrinogen 68 L* ABG pH ABG pO2 ABG Hemoglobin Oxyhemoglobin Potassium Chloride Carbon Dioxide Creatinine 0.5 L Glucose Alkaline Phosphatase 23 L Total Protein 5.2 L Albumin 02/24/22 04:03 WBC RBC Hgb Hct MCV MCH MCHC RDW Lymph % (Auto) [place] % (Auto) Lymph # (Auto) [place] # (Auto) Seg Neutrophils % Seg Neutrophils # Fibrinogen ABG pH ABG pO2 ABG Hemoglobin Oxyhemoglobin Potassium Chloride Carbon Dioxide Creatinine 0.5 L Glucose Alkaline Phosphatase Total Protein Albumin Additional Studies: T ABDOMEN AND PELVIS WITHOUT CONTRAST 02/27/22 HISTORY: patient complain of tenderness after fall, covid + COMPARISON: None. TECHNIQUE: Axial CT images were obtained through the abdomen and pelvis without IV contrast. Sagittal and coronal reformatted images. All CT scans at this location are performed using CT dose reduction for [email or web address] by means of automated exposure control. FINDINGS: CT ABDOMEN: Lung Bases: Clear. Liver: A 2.3 cm rounded hypodensity is identified in the superior right hepatic lobe on image 25, series 2. A similar appearing 2.3 cm hypodensity is identified in the inferior r ight hepatic lobe on image 52. These are incompletely characterized on noncontrast CT. These do not appear to represent cysts. These may represent hemangiomas. There is no evidence for underlying par enchymal liver disease. These could be further evaluated with multiphase CT or MRI with contrast. Biliary: No significant abnormality. Spleen: No significant abnormality. Unenlarged. Pancreas: No significant abnormality. Adrenals: No significant abnormality. Kidneys: No significant abnormality. Lymphatics: No lymphadenopathy. Vasculature: No significant abnormality. Bowel/Peritoneum: No significant abnormality. No free air. No free fluid. Normal appendix. CT PELVIS: : No significant abnormality. Osseous Structures: The bony structures appear mildly demineralized. No acute fracture or suspicious bony lesion is detected. Schmorl's nodes are noted along the superior endplate of T11, T12 and L1. Additional Findings: None IMPRESSION: No acute injury is identified in the abdomen or pelvis. 2 ill-defined liver hypodensities are identified as described. I suspect these represent cavernous hemangiomas although they are incompletely characterized on noncontrast CT. Consider [address] with contrast or MRI with and without contrast for further evaluation. Allied health notes reviewed: nursing
[2022-03-01] MEDS: ENOXAPARIN 40 MG/0.4 ML INJ SUB-Q SCH (22:54)
[2022-03-01] MEDS: oxyCODONE /ACETAMINOPHEN 5-325MG TAB PO PRN (22:54)
[2022-03-02] MEDS: PYRIDOSTIGMINE BROMIDE 60 MG TAB PO SCH ×4 (05:40→23:07)
[2022-03-02] MEDS: predniSONE 20 MG TAB PO SCH (10:27)
[2022-03-02] MEDS: FAMOTIDINE 20 MG TAB PO SCH ×2 (10:27→22:03)
[2022-03-02] MEDS: SENNOSIDES/DOCUSATE SODIUM 8.6/50 MG TAB PO SCH ×2 (10:27→22:04)
[2022-03-02] MEDS: MYCOPHENOLATE 500 MG TAB PO SCH ×2 (10:27→22:03)
--- NOTE | 2022-03-02 11:37 | Progress Note ---
Assessment and Plan Assessment and plan: This is a 36-year-old male with known past medical history of obesity and myasthenia gravis admitted for myasthenia gravis crisis. 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 He was passing through [place] when symptoms started - S/p emergent intubation by anethesia - CT chest w con showed no evidence of thymoma - Neurology consulted, appreciated recommendations - Resumed home meds: Cellcept, Mestinon, and PO Prednisone - Completed X 5 days of IVIG - Plasma exchange initiated on 02/16, Received X2 treament. For a total of 5 exchanges to be completed over 9 days. - CCM also on consult, appreciated recommendations - Patient reported that his neurologist in [place] is Dr. Billie Delgado - Transfer to [facility] was declined, no available ICU beds at this time. They recommend continuing IVIG and possible plasma exchange -Plasmapheresis being done today and FFP's were ordered as fibrinogen is low #Acute Hypoxemic Respiratory Failure #Probable ANTON- On CPAP at home #Former Smoker - most likely related to MG crisis - S/p emergent intubation by anesthesia on 02/07 for airway protection - 02/09 s/p extubation - Stable on RA this am - CCM consulted, appreciate recommendations - Completed X5 days of IVIG - Continue plasma exchange and IS ordered - Continue Bipap at night - Aspiration precaution HOB above 30 - PRN O2 supplementation as needed - Continue SPO2 monitoring for SPO2 goal above 92% #Hepatic Hemangiomas - noted fro CT chest w/o con - Stable, LFTs within normal range - Outpatient follow up for US and further workups #Obesity - Balanced diet, increase physical activity discharge, outpatient pulmonary follow-up for sleep study, weight reduction. #GI/DVT Prophylaxis - PPI- Pepcid - Lovenox SubQ - SCD to bilateral lower extremities while in bed Hospital Course to Date: 02/07: S/p X1 dose of IV IG overnight, patient reported feeling much better and stronger this am, moving all extremities. Plan to wean off Bipap this am. Okay to start a diet if patient pass bedside swallow. D/W CCM plan for CT chest w con tomorrow to r/o thymoma. Neurology consulted. 02/08: S/p emergent intubation by anethesia yesterday. Now intubated and sedated, RASS -2. Neurology recommendations noted. Resumed home meds. Will wean off sedation this am for possible SAT/SBT. CT chest also noted with no evidence of thymoma. Continue IVIG. Attending received call back from [facility]. Transfer was declined, no available ICU beds at this time. They recommend continuing IVIG and possible plasma exchange. Awaiting on Neurology final recommendations. 02/09: S/p Extubation this am. Desated to 85% on 3L NC, SPO2 improved to 88% on 8L NC. This am CXR noted, worsen opacity of the left side. CCM at the bedside, X1 dose of IV Lasix ordered and place patient on Bipap. Low Threshold for reintubation. Plan of care and the high probability for reintubation was discussed with patient at the bedside. Patient verbalized understanding and agree with current care plan. Continue IVIG, Awaiting on Neurology final recommendations. 02/10: Tolerated Bipap, now on 2L NC this am, SPO2 at 100%. No s/s of any acute respiratory distress noted. This am CXR also noted with significant improvement. Continue IVIGm and Bipap at night. Incentive Spirometer also ordered. advance diet as tolerated. PT/OT/Speech consulted. 02/11: Completed x5days of IVIG overnight. Stable on RA, still complaining of generalized weakness, other stable. Diet advanced to solid this am, patient is tolerating it. Continue IS and Bipap at night. Encourage mobility as tolerated, PT/OT/Speech consult pending. 02/12: CPAP prn, currently on RA. Improved strength to BLE and BUE per patient. 02/13: Increased weakness reported on encounter. increased steroid dose to prednisone 40 mg po daily. Continue pyridostigmine and cellcept. Possible d/c tomorrow. 02/14: Weakness improved however still continues to have difficulty with stre ngth. Still has right eye lid droop. Patient increased to prednisone 60 mg po daily. He has had 4 myasthenia gravis crises in the past and was initiated on high dose steroids with vermin exterminator taper by her OP neurologist. Pt recommended home with home health care PT. Ambulation is challenging as patient requires a rolling walker. 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 Patient is not a resident of [place]. States his home state is [place]. He has a sister in [place] who's address he uses for mailing purposes. Will work with CM to coordinate placement. 02/15: worsened strength. Admits to dysphagia and shortness of breath today. Given worsening symptmology transferring back to ICU for close monitoring. Plasma exchange ordered, first tx tomorrow, coordinated with Dr Katya Manley. Will place vascath today/tomorrow AM for exchanges. Steroid dose increased to Prednisone 80 mg po daily in interim. Will attempt to call neurologist tomorrow AM. 02/16: Plan for plasma exchange today. Labs reviewed, cbc/bmp/fibrinogen all unremarkable. Trialysis catheter placed, pt tolerated procedure well. Taryn Manley will be here today do 4L exchange. A total of 5 exchanges will be completed over 9 days. A total of 20 L 5% albumin will be needed, pharmacy was notified yesterday of this. Continue prednisone 80 mg po daily dose. 02/17: No overnight events. No acute complaints. Tolerated PLEX well. Continue steroids and will follow for symptom improvement. 02/18: Plex tx today. XR ordered due to severe rib pain, no rib fx ID. Will continue to follow for sx improvement. 02/19: Doing much better this am. OOB and sitting up in the chair this am, stable on RA. Still complaining of generalized but reported feeling better. Continue plasma exchange and PO prednisone, cellcept, and Mycophenolate. Continue PT/OT. 02/20: Patient seen and examined, clinically showing some improvement, will continue on current Prednisone Dose, patients fibrinogen is lower than 100, we do not have plasma inhouse, patient will undergo PLEX with Albumin and recieve Cyroprecipitated (Ordered) after per the [facility] team. Continue to monitor NIF Continue IMCU care in this critically ill patient. 02/21: Tolerated PLEX yesterday, Fibrinogen improved to 100. Patient has leukocytosis today without fever, no new neuro deficits reported today. Will request Neuro-revaluation. Case management continues to work on safe discharge plan. Plan discussed with the patient. Dispo based on evaluation by Neuro 02/22: Patient seen and examined today, awaiting 4/5 PLEX therapy, awaiting Neurology re-evaluation. Discussed with case management and patient about discharge plans. 02/23: Patient seen and examined, Neurology input noted: change mestinon from 180 mg po qday to 60 mg po tid; prednisone from 80 mg po qday to 40 mg po qday; continue cellcept (per home regimen); plex 4/5 ongoing at bedside today; pt/ot/st evaluation/monitoring; f/u established neurologist within 2 weeks post- discharge. Patient can be discharged after THE LAST PLEX TOMORROW. 02/24/2022 Patient receiving plasma exchange and FFP's 02/25/2022 Patient finished course of plasma exchanges and FFP's Patient to be tapered on prednisone from 80 mg Had extensive discussion with the patient Patient lives in [place] and is on Mestinon and prednisone Patient is willing to fly back to [place] and follow-up with his PCP Patient to be discharged on prednisone tapering dose 60 mg for 5 days 40 mg for 5 days 20 mg for 5 days and then continue at 10 mg 02/26/2022. Patient completed plasma exchange and FFP. Continue prednisone taper. Apparently, pulmonary wants to continue to monitor the patient for 24 hours. Anticipate discharge later today or in a.m. 02/27/2022: Discharge home today. rx for prednisone, mestinon, and cellcept provided. 02/28; d/c cancelled yesterday as patient was experiencing weakness. Feels as though he is "flaring" Mestonin increased to 120 mg q6hr. Monitor for anticholinergic side effects. Continue prednisone at high dose and continue cellcept at home dose 1000 mg po bid. Again this patient likely has suboptimal maintenance therapy...do not lower prednisone dose at this time . PT eval and continued exercises ordered. Unfortunately placement of this patient will be challenging as he lives out of his truck and insurance status will make his placement tough. 02/28: Continue med therapy for MG. PT recommend [facility] w/ rolling walker. will to continue to work with patient today. Extensive discussion with CM re: placement during rounds today. Will work towards safe discharge plan. 03/01: Discharge canceled. 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 D/w CM during rounds who will need to find alternative solution...this patient absolutely cannot return to semi-truck as it poses a danger not only to self but to others should he operate it. D/w CLUB MANAGER regarding difficult placement. History Interval history: Improvement in strenght. Walked with cane with PT. Encouraged patient to continue with ambulation exercises. Hospitalist Physical - Physical exam Narrative exam: Narrative exam: General appearance: Present: no acute distress, well-nourished, obese - EENT Eyes: Present: PERRL ENT: dentition normal, hearing decreased - Neck Neck: Present: normal ROM - Respiratory Respiratory effort: normal Respiratory: bilateral: diminished - Cardiovascular Rhythm: regular Heart Sounds: Present: S1 & S2. Absent: systolic murmur, diastolic murmur - Extremities Extremities: no ischemia, pulses intact, pulses symmetrical, No edema, normal temperature, normal color Peripheral Pulses: within normal limits - Abdominal General gastrointestinal: soft, non-tender, non-distended, normal bowel sounds - Integumentary Integumentary: Present: warm, dry - Psychiatric Psychiatric: appropriate mood/affect, cooperative - Neurologic Neurologic: no focal deficits, moves all extremities - Allied Health Allied health notes reviewed: nursing, RT, social work - Constitutional Vitals: Temp Pulse Resp BP Pulse Ox 97.2 F L 56 L 17 109/64 98 03/01/22 23:34 03/01/22 23:45 03/01/22 23:45 03/01/22 23:34 03/01/22 23:45 General appearance: Present: no acute distress, well-nourished Results - Labs CBC & Chem 7: 02/24/22 04:03 02/24/22 04:03 Labs: Laboratory Last Values WBC 10.4 K/mm3 (4.5-11.0) 02/24/22 04:03 RBC 4.60 M/mm3 (3.65-5.03) 02/24/22 04:03 Hgb 10.3 gm/dl (11.8-15.2) L 02/24/22 04:03 Hct 33.2 % (35.5-45.6) L 02/24/22 04:03 MCV 72 fl (84-94) L 02/24/22 04:03 MCH 22 pg (28-32) L 02/24/22 04:03 MCHC 31 % (32-34) L 02/24/22 04:03 RDW 19.0 % (13.2-15.2) H 02/24/22 04:03 Plt Count 235 K/mm3 (140-440) 02/24/22 04:03 Lymph % (Auto) 27.4 % (13.4-35.0) 02/21/22 09:50 [place] % (Auto) 7.3 % (0.0-7.3) 02/21/22 09:50 Eos % (Auto) 0.1 % (0.0-4.3) 02/21/22 09:50 Baso % (Auto) 0.2 % (0.0-1.8) 02/21/22 09:50 Lymph # (Auto) 3.6 K/mm3 (1.2-5.4) 02/21/22 09:50 [place] # (Auto) 1.0 K/mm3 (0.0-0.8) H 02/21/22 09:50 Eos # (Auto) 0.0 K/mm3 (0.0-0.4) 02/21/22 09:50 Baso # (Auto) 0.0 K/mm3 (0.0-0.1) 02/21/22 09:50 Seg Neutrophils % 65.0 % (40.0-70.0) 02/21/22 09:50 Seg Neutrophils # 8.5 K/mm3 (1.8-7.7) H 02/21/22 09:50 Fibrinogen 68 mg/dl (211-480) L* 02/24/22 04:03 ABG pH 7.333 pH Units (7.350-7.450) L 02/08/22 09:20 ABG pCO2 48.2 mm Hg 02/08/22 09:20 ABG pO2 114.7 mm Hg (80.0-90.0) H 02/08/22 09:20 ABG HCO3 25.0 mmol/L (20.0-26.0) 02/08/22 09:20 ABG O2 Saturation 97.9 % (95.0-99.0) 02/08/22 09:20 ABG O2 Content 15.1 (0.0-44) 02/08/22 09:20 ABG Base Excess -1.1 mmol/L (-2.0-3.0) 02/08/22 09:20 ABG Hemoglobin 11.1 gm/dl (14.0-18.0) L 02/08/22 09:20 ABG Carboxyhemoglobin 1.4 % (0.0-5.0) 02/08/22 09:20 ABG Methemoglobin 0.5 % (0.0-1.5) 02/08/22 09:20 Oxyhemoglobin 96.1 % (95.0-99.0) 02/08/22 09:20 FiO2 35 % 02/08/22 09:20 Sodium 141 mmol/L (137-145) 02/24/22 04:03 Potassium 3.8 mmol/L (3.6-5.0) 02/24/22 04:03 Chloride 106.2 mmol/L (98-107) 02/24/22 04:03 Carbon Dioxide 27 mmol/L (22-30) 02/24/22 04:03 Anion Gap 12 mmol/L 02/24/22 04:03 BUN 10 mg/dL (9-20) 02/24/22 04:03 Creatinine 0.5 mg/dL (0.8-1.3) L 02/24/22 04:03 Estimated GFR > 60 ml/min 02/24/22 04:03 BUN/Creatinine Ratio 20 % 02/24/22 04:03 Glucose 81 mg/dL (75-100) 02/24/22 04:03 Calcium 8.8 mg/dL (8.4-10.2) 02/24/22 04:03 Total Bilirubin 0.30 mg/dL (0.1-1.2) 02/23/22 04:08 AST 9 units/L (5-40) 02/23/22 04:08 ALT 11 units/L (7-56) 02/23/22 04:08 Alkaline Phosphatase 23 units/L (35-129) L 02/23/22 04:08 Total Protein 5.2 g/dL (6.3-8.2) L 02/23/22 04:08 Albumin 4.8 g/dL (3.9-5) 02/23/22 04:08 Albumin/Globulin Ratio 12.0 % 02/23/22 04:08 Actin IgG Antibody <20 U (<20) 02/16/22 04:52 Blood Type O POSITIVE 02/24/22 11:33 Antibody Screen Negative 02/24/22 11:33 [place]/IV: Voiding Method Urinal Active Medications - Current Medications Current Medications: Generic Name Dose Route Start Last Admin Trade Name Freq PRN Reason Stop Dose Admin Acetaminophen 650 mg 02/06/22 15:00 02/28/22 23:28 Acetaminophen 325 Mg Tab PO 650 mg Q6H PRN Administration Pain MILD(1-3)/Fever >100.5/WEINBERG Albuterol 2.5 mg 02/06/22 15:00 02/15/22 21:54 Albuterol 2.5 Mg/3 Ml Nebu IH 2.5 mg Q3HRT PRN Administration Shortness Of Breath Diphenhydramine HCl 25 mg 02/15/22 14:06 02/16/22 11:49 Diphenhydramine 50 Mg/Ml Vial IV 25 mg Q6H PRN Administration Itching Enoxaparin Sodium 40 mg 02/06/22 22:00 03/01/22 22:54 Enoxaparin 40 Mg/0.4 Ml Inj SUB-Q 40 mg QDAY@2200 NESTOR Administration Protocol Famotidine 20 mg 02/12/22 10:00 03/02/22 10:27 Famotidine 20 Mg Tab PO 20 mg BID NESTOR Administration Hydrophilic Ointment 1 applic 02/07/22 10:55 Lip Therapy Vaseline TP Q2HR PRN Dry Lips Melatonin 5 mg 02/21/22 01:15 02/27/22 23:33 Melatonin 5 Mg Tab PO 5 mg QHS PRN Administration Sleep Multi-Ingred Cream/Lotion/Oil/Oint 1 applic 02/07/22 10:55 Mineral Oil/Petrolatum, White Ophth Oint 3.5 Gm OU Q4HR PRN Dry Eye(s) Mycophenolate Mofetil 1,000 mg 02/21/22 10:00 03/02/22 10:27 Mycophenolate 500 Mg Tab PO 1,000 mg BID NESTOR Administration Ondansetron HCl 4 mg 02/08/22 17:00 02/20/22 23:58 Ondansetron 4 Mg/2 Ml Inj IV 4 mg Q8H PRN Administration Nausea And Vomiting Oxycodone/Acetaminophen 1 tab 02/06/22 15:00 03/01/22 22:54 Oxycodone /Acetaminophen 5-325mg Tab PO 1 tab Q16H PRN Administration Pain, Moderate (4-6) Prednisone 60 mg 02/28/22 10:00 03/02/22 10:27 Prednisone 20 Mg Tab PO 60 mg QDAY NESTOR Administration Pyridostigmine Art[place]us 120 mg 02/27/22 19:00 03/02/22 05:40 Pyridostigmine Art[place]us 60 Mg Tab PO 120 mg Q6HR NESTOR Administration Senna/Docusate Sodium 1 tab 02/12/22 10:00 03/02/22 10:27 Sennosides/Docusate Sodium 8.6/50 Mg Tab PO 1 tab BID NESTOR Administration Sodium Chloride 10 ml 02/06/22 22:00 03/02/22 10:28 Sodium Chloride 0.9% 10 Ml Flush Syringe IV 10 ml BID NESTOR Administration Sodium Chloride 10 ml 02/06/22 13:59 Sodium Chloride 0.9% 10 Ml Flush Syringe IV PRN PRN LINE FLUSH Nutrition/Malnutrition Assess - Dietary Evaluation Nutrition/Malnutrition Findings: Nutrition Notes Start: 02/07/22 13:09 Freq: Status: Active Protocol: Document 02/27/22 14:07 PRADEEP (Rec: 02/27/22 14:34 PRADEEP [id number]) Nutrition Notes Initial or Follow up Reassessment Current Diagnosis Respiratory Failure Other Pertinent Diagnosis Myasthenia Gravis, ANTON, Hepatic Hemangiomas. Current Diet Regular Diet (since L 02/19). Labs/Tests 02/27: Crea 0.5. Pertinent Medications 02/27: Nutritionally unremarkable. Height 5 ft 10 in Weight 102 kg [place] Body Weight (kg) 75.45 BMI 32.2 Weight change and time frame No body weight change reported in 1 week. Weight Status Obese Subjective/Other Information RD consult for routine F/U on dietary advancement. No further reports available on Pt's PO intake of meals, will assess at F/U if possible . Pt is on Room Air, O2 saturation @ 96%, according to Physical Assessment History notes. Pt finished plasma exchange tratment and is cleared for discharge home with family, according to Progress notes. Percent of energy/protein needs met: Prescribed Regular Diet provides for energy/protein needs (2,289 Kcal/89 g) during LOS. Burn Absent Trauma Absent GI Symptoms None Food Allergy No Skin Integrity/Comment Assessment WNL. Minimum of two criteria No Fluid Accumulation N/A Reduced Analysis Specialist Strength N/A (non-severe) Protein-Calorie Malnutrition N\\A Is patient on ventilator? No Is Patient Ambulatory and/or Out of Bed No REE-(Lamoure-St. Jeor-confined to bed) 2349.732 Kcal/Kg value to use for calculation 20 Approximate Energy Requirements Using 0 kcal/Kg Calculation Used for Recommendations Kcal/kg Additional Notes Protein: 0.8-1 g/Kg AdjBW; 71- 89 g/day. Fluids: 1 ml/Kcal, or as per MD. Nutrition Intervention Change Diet Order: Contrinue Regular Diet. Follow-Up By: 03/06/22 Additional Comments Continue monitoring food tolerance, %PO intake of meals , and BM.
--- NOTE | 2022-03-02 13:31 | Progress Note ---
Assessment and Plan 36 YO Male with MG currently taking Cellcept, Mycophenolate, and Prednisone presents ED for evaluation. Patient states that he had experienced generalized weakness over the past 1 day with progressive and worsening symptoms over the same timeframe. Patient states that he was able to walk earlier today but he is unable to walk. Patient also acknowledges upper extremity weakness as well as difficulty speaking. EMS was notified and upon arrival the patient was found to be in distress and subsequently transported to [facility] for further care and evaluation of the aforementioned symptoms. The patient was seen and evaluated in the emergency department. All lab and imaging studies reviewed. Patient found to have myasthenia gravis crisis with increased risk for worsening symptoms as well as development of acute hypoxemic respiratory failure. Patient placed on noninvasive positive pressure ventilation in the emergency department and admitted to ICU. IVIG ordered in the emergency department. Patient denies fever, chills, chest pain, palpitation productive cough, skin rash and recent Contact, known exposure to COVID-19. Patient eventually intubated and placed on mechanical ventilation. Patient extubated now. Patient has history vaping 2 times a day x 14 years. Stopped vaping 3 years ago. Denies alcohol abuse. Used Marijuna in his teenage years. Not used Marijuana for long time. 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 Not . Has no children. No known drug allergies. Patient has history of Sleep apnea. Uses CPAP 12 cm H2O during night time. Patient moved to medical floor. Patient Obese, awake sitting on side of bed. Patient on room air. O2 saturation 98%. No acute respiratory distress at rest. Cpap on standy in the room. Patient states that weakness is better. Patient afebrile. No leukocytosis, Blood pressure 109/64, rate 56, respirations 17. Chest xray 02/10/22 Previous density of the left has almost completely cleared with only minimal basilar atelectasis remaining. Right lung field clear. No pneumothorax. CT scan of chest 02/08/[address] evidence of thymoma. Hypoattenuating lesions of the liver statistically reflect hepatic hemangiomas. One of these lesions demonstrate characteristic peripheral puddling of contrast, the second does not clearly demonstrate specific pattern of enhancement. Ultrasound targeting these lesions may be useful for further characterization and confirmation of hemangioma. Moderate subsegmental atelectasis of the bilateral lungs. Satisfactory positioning of endotracheal tube and esophagogastric tube. Chest xray done 02/17/22 reported No significant pulmonary or pleural abnormality. No pneumothorax. Left rib series done on 02/18/22 reported he left ribs appear unremarkable. There is no visible left rib fracture. No acute pulmonary disease. Patient is on Po Prednisone, Albuterol inhaler, S/C Lovenox and famotidine. I - Patient Problems (1) Acute hypoxemic respiratory failure Current Visit: Yes Status: Acute Plan to address problem: CPAP during night time. Continue prednisone. Continue S/C Lovenox. Continue famotidine. Albuterol inhaler prn for shortness of breath. (2) Obesity Current Visit: Yes Status: Acute Qualifiers: Body mass index: BMI 33.0-33.9 Plan to address problem: Counseled to loose weight Exercise and diet. (3) Sleep apnea Current Visit: Yes Status: Acute Plan to address problem: Patient says he has history of sleep apnea. No sleep study results available at this time. Continue CPAP as she is using at home. Recommend to loose weight. Explained sleep hygiene. Recommend not to drive or operate heavy equipment with sleepiness. Avoid alcohol, sedatives and Narcotics If sleep study is while back, recommend to repeat sleep study as out patient. (4) Myasthenia gravis Current Visit: Yes Status: Acute Plan to address problem: Patient finished course of plasmapheresis. Management as per primary care and neurology. Subjective Date of service: 03/02/22 Principal diagnosis: Myasthenic crisis; Obesity; Possible ANTON/OHS; Blurry vision; Hypokalemia Interval history: 36 YO Male with MG currently taking Cellcept, Mycophenolate, and Prednisone presents ED for evaluation. Patient states that he had experienced generalized weakness over the past 1 day with progressive and worsening symptoms over the same timeframe. Patient states that he was able to walk earlier today but he is unable to walk. Patient also acknowledges upper extremity weakness as well as difficulty speaking. EMS was notified and upon arrival the patient was found to be in distress and subsequently transported to [facility] for further care and evaluation of the aforementioned symptoms. The patient was seen and evaluated in the emergency department. All lab and imaging studies reviewed. Patient found to have myasthenia gravis crisis with increased risk for worsening symptoms as well as development of acute hypoxemic respiratory failure. Patient placed on noninvasive positive pressure ventilation in the emergency department and admitted to ICU. IVIG ordered in the emergency department. Patient denies fever, chills, chest pain, palpitation productive cough, skin rash and recent Contact, known exposure to COVID-19. Patient eventually intubated and placed on mechanical ventilation. Patient extubated now. Patient has history vaping 2 times a day x 14 years. Stopped vaping 3 years ago. Denies alcohol abuse. Used Marijuna in his teenage years. Not used Marijuana for long time. 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 Not . Has no children. No known drug allergies. Patient has history of Sleep apnea. Uses CPAP 12 cm H2O during night time. Patient moved to medical floor. Patient Obese, awake sitting on side of bed. Patient on room air. O2 saturation 98%. No acute respiratory distress at rest. Cpap on standy in the room. Patient states that weakness is better. Patient afebrile. No leukocytosis, Blood pressure 109/64, rate 56, respirations 17. Chest xray 02/10/22 Previous density of the left has almost completely cleared with only minimal basilar atelectasis remaining. Right lung field clear. No pneumothorax. CT scan of chest 02/08/[address] evidence of thymoma. Hypoattenuating lesions of the liver statistically reflect hepatic hemangiomas. One of these lesions demonstrate characteristic peripheral puddling of contrast, the second does not clearly demonstrate specific pattern of enhancement. Ultrasound targeting these lesions may be useful for further characterization and confirmation of hemangioma. Moderate subsegmental atelectasis of the bilateral lungs. Satisfactory positioning of endotracheal tube and esophagogastric tube. Chest xray done 02/17/22 reported No significant pulmonary or pleural abnormality. No pneumothorax. Left rib series done on 02/18/22 reported he left ribs appear unremarkable. There is no visible left rib fracture. No acute pulmonary disease. Patient is on Po Prednisone, Albuterol inhaler, S/C Lovenox and famotidine. Objective Constitutional: no acute distress, alert, other (young obese male without increased respiratory effort at rest) Eyes: non-icteric ENT: oropharynx moist Neck: supple, no lymphadenopathy, no JVD, other (large circumference) Effort: normal Ascultation: Bilateral: diminished breath sounds Percussion: Bilateral: not dull Cardiovascular: regular rate and rhythm Gastrointestinal: normoactive bowel sounds, soft, non-tender, non-distended (protuberant) Integumentary: normal Extremities: no cyanosis, no edema, pulses normal, no ischemia or petechiae Neurologic: non-focal exam (grossly), pupils equal and round, CN II-XII normal, other (weak (3-4/5)) Psychiatric: mood appropriate, affect normal CBC and BMP: 02/24/22 04:03 02/24/22 04:03 ABG, PT/INR, D-dimer: ABG ABG pH 7.333 pH Units (7.350-7.450) L 02/08/22 09:20 ABG pCO2 48.2 mm Hg 02/08/22 09:20 ABG pO2 114.7 mm Hg (80.0-90.0) H 02/08/22 09:20 ABG O2 Saturation 97.9 % (95.0-99.0) 02/08/22 09:20 Abnormal lab findings: Abnormal Labs 02/06/22 02/06/22 02/06/22 12:39 12:39 13:59 WBC RBC 5.75 H Hgb Hct MCV 74 L MCH 23 L MCHC 30 L RDW 16.9 H Lymph % (Auto) 6.4 L [place] % (Auto) Lymph # (Auto) 0.5 L [place] # (Auto) Seg Neutrophils % 89.3 H Seg Neutrophils # Fibrinogen ABG pH ABG pO2 ABG Hemoglobin 12.6 L Oxyhemoglobin Potassium 3.5 L Chloride 109.1 H Carbon Dioxide 20 L Creatinine 0.7 L Glucose 113 H Alkaline Phosphatase Total Protein Albumin 02/07/22 02/07/22 02/08/22 04:15 12:00 04:23 WBC RBC 5.10 H Hgb 11.5 L 11.0 L Hct MCV 72 L 74 L MCH 23 L 22 L MCHC 30 L RDW 17.3 H 17.1 H Lymph % (Auto) [place] % (Auto) 9.1 H Lymph # (Auto) [place] # (Auto) Seg Neutrophils % Seg Neutrophils # Fibrinogen ABG pH ABG pO2 72.6 L ABG Hemoglobin 12.2 L Oxyhemoglobin 94.4 L Potassium Chloride Carbon Dioxide Creatinine Glucose Alkaline Phosphatase Total Protein Albumin 02/08/22 02/08/22 02/09/22 04:23 09:20 04:50 WBC RBC Hgb 10.4 L Hct 33.7 L MCV 73 L MCH 22 L MCHC 31 L RDW 17.5 H Lymph % (Auto) [place] % (Auto) Lymph # (Auto) [place] # (Auto) Seg Neutrophils % Seg Neutrophils # Fibrinogen ABG pH 7.333 L ABG pO2 114.7 H ABG Hemoglobin 11.1 L Oxyhemoglobin Potassium Chloride 109.3 H Carbon Dioxide Creatinine 0.6 L Glucose Alkaline Phosphatase Total Protein Albumin 02/09/22 02/10/22 02/11/22 04:50 04:50 04:38 WBC 4.4 L 3.3 L RBC Hgb 10.1 L 10.4 L Hct 32.9 L 33.6 L MCV 73 L 73 L MCH 22 L 23 L MCHC 31 L 31 L RDW 17.2 H 17.0 H Lymph % (Auto) [place] % (Auto) Lymph # (Auto) [place] # (Auto) Seg Neutrophils % Seg Neutrophils # Fibrinogen ABG pH ABG pO2 ABG Hemoglobin Oxyhemoglobin Potassium Chloride Carbon Dioxide Creatinine Glucose 107 H Alkaline Phosphatase Total Protein Albumin 02/11/22 02/12/22 02/13/22 04:38 04:25 04:17 WBC 3.7 L 3.5 L RBC Hgb 10.5 L 10.8 L Hct 34.5 L MCV 73 L 73 L MCH 22 L 22 L MCHC 30 L 30 L RDW 16.9 H 17.5 H Lymph % (Auto) [place] % (Auto) Lymph # (Auto) [place] # (Auto) Seg Neutrophils % Seg Neutrophils # Fibrinogen ABG pH ABG pO2 ABG Hemoglobin Oxyhemoglobin Potassium Chloride Carbon Dioxide Creatinine 0.7 L Glucose 101 H Alkaline Phosphatase Total Protein Albumin 02/16/22 02/16/22 02/18/22 04:52 04:52 07:18 WBC RBC Hgb 11.4 L 11.4 L Hct 35.3 L MCV 71 L 72 L MCH 23 L 23 L MCHC RDW 17.4 H 17.3 H Lymph % (Auto) 43.5 H [place] % (Auto) 7.6 H 7.6 H Lymph # (Auto) [place] # (Auto) Seg Neutrophils % 71.5 H Seg Neutrophils # Fibrinogen ABG pH ABG pO2 ABG Hemoglobin Oxyhemoglobin Potassium Chloride Carbon Dioxide Creatinine 0.6 L Glucose Alkaline Phosphatase Total Protein Albumin 3.5 L 02/18/22 02/18/22 02/20/22 07:18 07:18 04:23 WBC RBC 5.22 H Hgb 11.6 L Hct MCV 73 L MCH 22 L MCHC 31 L RDW 18.0 H Lymph % (Auto) [place] % (Auto) Lymph # (Auto) [place] # (Auto) Seg Neutrophils % Seg Neutrophils # Fibrinogen 144 L* ABG pH ABG pO2 ABG Hemoglobin Oxyhemoglobin Potassium Chloride Carbon Dioxide Creatinine 0.5 L Glucose Alkaline Phosphatase Total Protein Albumin 02/20/22 02/20/22 02/21/22 04:23 04:23 09:50 WBC 13.1 H RBC 5.36 H Hgb Hct MCV 73 L MCH 22 L MCHC 31 L RDW 18.4 H Lymph % (Auto) [place] % (Auto) Lymph # (Auto) [place] # (Auto) 1.0 H Seg Neutrophils % Seg Neutrophils # 8.5 H Fibrinogen 89 L* ABG pH ABG pO2 ABG Hemoglobin Oxyhemoglobin Potassium Chloride Carbon Dioxide Creatinine 0.5 L Glucose 107 H Alkaline Phosphatase Total Protein Albumin 02/21/22 02/21/22 02/22/22 09:50 09:50 03:30 WBC 11.7 H RBC 5.16 H Hgb 11.4 L Hct MCV 73 L MCH 22 L MCHC 31 L RDW 18.5 H Lymph % (Auto) [place] % (Auto) Lymph # (Auto) [place] # (Auto) Seg Neutrophils % Seg Neutrophils # Fibrinogen 100 L* ABG pH ABG pO2 ABG Hemoglobin Oxyhemoglobin Potassium Chloride Carbon Dioxide Creatinine 0.7 L Glucose Alkaline Phosphatase Total Protein Albumin 02/22/22 02/22/22 02/23/22 03:30 10:11 04:08 WBC 11.4 H RBC Hgb 10.5 L Hct 33.9 L MCV 72 L MCH 22 L MCHC 31 L RDW 19.3 H Lymph % (Auto) [place] % (Auto) Lymph # (Auto) [place] # (Auto) Seg Neutrophils % Seg Neutrophils # Fibrinogen 114 L* ABG pH ABG pO2 ABG Hemoglobin Oxyhemoglobin Potassium Chloride Carbon Dioxide Creatinine 0.5 L Glucose Alkaline Phosphatase Total Protein 5.8 L Albumin 02/23/22 02/24/22 02/24/22 04:08 04:03 04:03 WBC RBC Hgb 10.3 L Hct 33.2 L MCV 72 L MCH 22 L MCHC 31 L RDW 19.0 H Lymph % (Auto) [place] % (Auto) Lymph # (Auto) [place] # (Auto) Seg Neutrophils % Seg Neutrophils # Fibrinogen 68 L* ABG pH ABG pO2 ABG Hemoglobin Oxyhemoglobin Potassium Chloride Carbon Dioxide Creatinine 0.5 L Glucose Alkaline Phosphatase 23 L Total Protein 5.2 L Albumin 02/24/22 04:03 WBC RBC Hgb Hct MCV MCH MCHC RDW Lymph % (Auto) [place] % (Auto) Lymph # (Auto) [place] # (Auto) Seg Neutrophils % Seg Neutrophils # Fibrinogen ABG pH ABG pO2 ABG Hemoglobin Oxyhemoglobin Potassium Chloride Carbon Dioxide Creatinine 0.5 L Glucose Alkaline Phosphatase Total Protein Albumin Allied health notes reviewed: nursing
[2022-03-02] MEDS: ENOXAPARIN 40 MG/0.4 ML INJ SUB-Q SCH (22:03)
[2022-03-02] MEDS: oxyCODONE /ACETAMINOPHEN 5-325MG TAB PO PRN (22:06)
[2022-03-03] MEDS: ACETAMINOPHEN 325 MG TAB PO PRN (05:16)
[2022-03-03] MEDS: PYRIDOSTIGMINE BROMIDE 60 MG TAB PO SCH ×4 (05:17→23:07)
--- NOTE | 2022-03-03 08:26 | Progress Note ---
Assessment and Plan Assessment and plan: This is a 36-year-old male with known past medical history of obesity and myasthenia gravis admitted for myasthenia gravis crisis. 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 He was passing through [place] when symptoms started - S/p emergent intubation by anethesia - CT chest w con showed no evidence of thymoma - Neurology consulted, appreciated recommendations - Resumed home meds: Cellcept, Mestinon, and PO Prednisone - Completed X 5 days of IVIG - Plasma exchange initiated on 02/16, Received X2 treament. For a total of 5 exchanges to be completed over 9 days. - CCM also on consult, appreciated recommendations - Patient reported that his neurologist in [place] is Dr. Billie Delgado - Transfer to [facility] was declined, no available ICU beds at this time. They recommend continuing IVIG and possible plasma exchange -Plasmapheresis being done today and FFP's were ordered as fibrinogen is low #Acute Hypoxemic Respiratory Failure #Probable ANTON- On CPAP at home #Former Smoker - most likely related to MG crisis - S/p emergent intubation by anesthesia on 02/07 for airway protection - 02/09 s/p extubation - Stable on RA this am - CCM consulted, appreciate recommendations - Completed X5 days of IVIG - Continue plasma exchange and IS ordered - Continue Bipap at night - Aspiration precaution HOB above 30 - PRN O2 supplementation as needed - Continue SPO2 monitoring for SPO2 goal above 92% #Hepatic Hemangiomas - noted fro CT chest w/o con - Stable, LFTs within normal range - Outpatient follow up for US and further workups #Obesity - Balanced diet, increase physical activity discharge, outpatient pulmonary follow-up for sleep study, weight reduction. #GI/DVT Prophylaxis - PPI- Pepcid - Lovenox SubQ - SCD to bilateral lower extremities while in bed Hospital Course to Date: 02/07: S/p X1 dose of IV IG overnight, patient reported feeling much better and stronger this am, moving all extremities. Plan to wean off Bipap this am. Okay to start a diet if patient pass bedside swallow. D/W CCM plan for CT chest w con tomorrow to r/o thymoma. Neurology consulted. 02/08: S/p emergent intubation by anethesia yesterday. Now intubated and sedated, RASS -2. Neurology recommendations noted. Resumed home meds. Will wean off sedation this am for possible SAT/SBT. CT chest also noted with no evidence of thymoma. Continue IVIG. Attending received call back from [facility]. Transfer was declined, no available ICU beds at this time. They recommend continuing IVIG and possible plasma exchange. Awaiting on Neurology final recommendations. 02/09: S/p Extubation this am. Desated to 85% on 3L NC, SPO2 improved to 88% on 8L NC. This am CXR noted, worsen opacity of the left side. CCM at the bedside, X1 dose of IV Lasix ordered and place patient on Bipap. Low Threshold for reintubation. Plan of care and the high probability for reintubation was discussed with patient at the bedside. Patient verbalized understanding and agree with current care plan. Continue IVIG, Awaiting on Neurology final recommendations. 02/10: Tolerated Bipap, now on 2L NC this am, SPO2 at 100%. No s/s of any acute respiratory distress noted. This am CXR also noted with significant improvement. Continue IVIGm and Bipap at night. Incentive Spirometer also ordered. advance diet as tolerated. PT/OT/Speech consulted. 02/11: Completed x5days of IVIG overnight. Stable on RA, still complaining of generalized weakness, other stable. Diet advanced to solid this am, patient is tolerating it. Continue IS and Bipap at night. Encourage mobility as tolerated, PT/OT/Speech consult pending. 02/12: CPAP prn, currently on RA. Improved strength to BLE and BUE per patient. 02/13: Increased weakness reported on encounter. increased steroid dose to prednisone 40 mg po daily. Continue pyridostigmine and cellcept. Possible d/c tomorrow. 02/14: Weakness improved however still continues to have difficulty with stre ngth. Still has right eye lid droop. Patient increased to prednisone 60 mg po daily. He has had 4 myasthenia gravis crises in the past and was initiated on high dose steroids with long term care social worker taper by her OP neurologist. Pt recommended home with home health care PT. Ambulation is challenging as patient requires a rolling walker. 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 Patient is not a resident of [place]. States his home state is [place]. He has a sister in [place] who's address he uses for mailing purposes. Will work with CM to coordinate placement. 02/15: worsened strength. Admits to dysphagia and shortness of breath today. Given worsening symptmology transferring back to ICU for close monitoring. Plasma exchange ordered, first tx tomorrow, coordinated with Dr Katya Manley. Will place vascath today/tomorrow AM for exchanges. Steroid dose increased to Prednisone 80 mg po daily in interim. Will attempt to call neurologist tomorrow AM. 02/16: Plan for plasma exchange today. Labs reviewed, cbc/bmp/fibrinogen all unremarkable. Trialysis catheter placed, pt tolerated procedure well. Taryn Manley will be here today do 4L exchange. A total of 5 exchanges will be completed over 9 days. A total of 20 L 5% albumin will be needed, pharmacy was notified yesterday of this. Continue prednisone 80 mg po daily dose. 02/17: No overnight events. No acute complaints. Tolerated PLEX well. Continue steroids and will follow for symptom improvement. 02/18: Plex tx today. XR ordered due to severe rib pain, no rib fx ID. Will continue to follow for sx improvement. 02/19: Doing much better this am. OOB and sitting up in the chair this am, stable on RA. Still complaining of generalized but reported feeling better. Continue plasma exchange and PO prednisone, cellcept, and Mycophenolate. Continue PT/OT. 02/20: Patient seen and examined, clinically showing some improvement, will continue on current Prednisone Dose, patients fibrinogen is lower than 100, we do not have plasma inhouse, patient will undergo PLEX with Albumin and recieve Cyroprecipitated (Ordered) after per the [facility] team. Continue to monitor NIF Continue IMCU care in this critically ill patient. 02/21: Tolerated PLEX yesterday, Fibrinogen improved to 100. Patient has leukocytosis today without fever, no new neuro deficits reported today. Will request Neuro-revaluation. Case management continues to work on safe discharge plan. Plan discussed with the patient. Dispo based on evaluation by Neuro 02/22: Patient seen and examined today, awaiting 4/5 PLEX therapy, awaiting Neurology re-evaluation. Discussed with case management and patient about discharge plans. 02/23: Patient seen and examined, Neurology input noted: change mestinon from 180 mg po qday to 60 mg po tid; prednisone from 80 mg po qday to 40 mg po qday; continue cellcept (per home regimen); plex 4/5 ongoing at bedside today; pt/ot/st evaluation/monitoring; f/u established neurologist within 2 weeks post- discharge. Patient can be discharged after THE LAST PLEX TOMORROW. 02/24/2022 Patient receiving plasma exchange and FFP's 02/25/2022 Patient finished course of plasma exchanges and FFP's Patient to be tapered on prednisone from 80 mg Had extensive discussion with the patient Patient lives in [place] and is on Mestinon and prednisone Patient is willing to fly back to [place] and follow-up with his PCP Patient to be discharged on prednisone tapering dose 60 mg for 5 days 40 mg for 5 days 20 mg for 5 days and then continue at 10 mg 02/26/2022. Patient completed plasma exchange and FFP. Continue prednisone taper. Apparently, pulmonary wants to continue to monitor the patient for 24 hours. Anticipate discharge later today or in a.m. 02/27/2022: Discharge home today. rx for prednisone, mestinon, and cellcept provided. 02/28; d/c cancelled yesterday as patient was experiencing weakness. Feels as though he is "flaring" Mestonin increased to 120 mg q6hr. Monitor for anticholinergic side effects. Continue prednisone at high dose and continue cellcept at home dose 1000 mg po bid. Again this patient likely has suboptimal maintenance therapy...do not lower prednisone dose at this time . PT eval and continued exercises ordered. Unfortunately placement of this patient will be challenging as he lives out of his truck and insurance status will make his placement tough. 02/28: Continue med therapy for MG. PT recommend [facility] w/ rolling walker. will to continue to work with patient today. Extensive discussion with CM re: placement during rounds today. Will work towards safe discharge plan. 03/01: Discharge canceled. 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 D/w CM during rounds who will need to find alternative solution...this patient absolutely cannot return to semi-truck as it poses a danger not only to self but to others should he operate it. 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 03/02: Patient doing well this morning. He states his weakness is gradually improving. Denies any anticholinergic effects of pyridostigmine dosing. Placement for the patient continues to be a challenge. Discussed with CM and re viewed note from Saturday. Patient has desire to go back to living in truck. He does not however have a "community"/adequate support system and the current lot that the truck is currently parked in does not have living quarters as previously believed to be the case. Previously when questioning the patient about his community, the patient stated that he does not really have any friends and is estranged from family who could potentially help look after them. He states that the lot that the truck is currently in has no attendants on weekends. Discharging the patient back to his truck would absolutely not be the safest option for this patient and could potentially pose a public hazard should the patient decide to operate his vehicle given his current condition. While the patient has expressed that he will not operate his vehicle, I would recommend that the patient be discharged in a personal fci/apartment/ or living situation with family/friend that does not involve living in his motor vehicle so he can continue with physical rehab therapy. I also recommend that he gets full clearance from an outpatient physician and/or neurologist prior to returning to operate his vehicle. I discussed this with the patient as well as potential concerns of him going back to the truck and he voiced understanding with this. All things considered, given the patient's improvement this weekend, we will continue to follow for improvement in his clinical condition to the point where he may potentially not need assistance. We will continue to work with case management for additional assistance in a safe discharge. History Interval history: No acute complaints this AM. Weakness appears to be improving. Denies dysphagia, respiratory issues, diplopia. VSS upon review. Hospitalist Physical - Physical exam Narrative exam: Narrative exam: General appearance: Present: no acute distress, well-nourished, obese - EENT Eyes: Present: PERRL ENT: dentition normal, hearing decreased - Neck Neck: Present: normal ROM - Respiratory Respiratory effort: normal Respiratory: bilateral: diminished - Cardiovascular Rhythm: regular Heart Sounds: Present: S1 & S2. Absent: systolic murmur, diastolic murmur - Extremities Extremities: no ischemia, pulses intact, pulses symmetrical, No edema, normal temperature, normal color Peripheral Pulses: within normal limits - Abdominal General gastrointestinal: soft, non-tender, non-distended, normal bowel sounds - Integumentary Integumentary: Present: warm, dry - Psychiatric Psychiatric: appropriate mood/affect, cooperative - Neurologic Neurologic: no focal deficits, moves all extremities - Allied Health Allied health notes reviewed: nursing, RT, social work - Constitutional Vitals: Temp Pulse Resp BP Pulse Ox 98.6 F 60 20 125/74 100 03/02/22 08:00 03/03/22 04:20 03/03/22 04:20 03/02/22 08:00 03/03/22 04:20 General appearance: Present: no acute distress, well-nourished Results - Labs CBC & Chem 7: 02/24/22 04:03 02/24/22 04:03 Labs: Laboratory Last Values WBC 10.4 K/mm3 (4.5-11.0) 02/24/22 04:03 RBC 4.60 M/mm3 (3.65-5.03) 02/24/22 04:03 Hgb 10.3 gm/dl (11.8-15.2) L 02/24/22 04:03 Hct 33.2 % (35.5-45.6) L 02/24/22 04:03 MCV 72 fl (84-94) L 02/24/22 04:03 MCH 22 pg (28-32) L 02/24/22 04:03 MCHC 31 % (32-34) L 02/24/22 04:03 RDW 19.0 % (13.2-15.2) H 02/24/22 04:03 Plt Count 235 K/mm3 (140-440) 02/24/22 04:03 Lymph % (Auto) 27.4 % (13.4-35.0) 02/21/22 09:50 Darke % (Auto) 7.3 % (0.0-7.3) 02/21/22 09:50 Eos % (Auto) 0.1 % (0.0-4.3) 02/21/22 09:50 Baso % (Auto) 0.2 % (0.0-1.8) 02/21/22 09:50 Lymph # (Auto) 3.6 K/mm3 (1.2-5.4) 02/21/22 09:50 Darke # (Auto) 1.0 K/mm3 (0.0-0.8) H 02/21/22 09:50 Eos # (Auto) 0.0 K/mm3 (0.0-0.4) 02/21/22 09:50 Baso # (Auto) 0.0 K/mm3 (0.0-0.1) 02/21/22 09:50 Seg Neutrophils % 65.0 % (40.0-70.0) 02/21/22 09:50 Seg Neutrophils # 8.5 K/mm3 (1.8-7.7) H 02/21/22 09:50 Fibrinogen 68 mg/dl (211-480) L* 02/24/22 04:03 ABG pH 7.333 pH Units (7.350-7.450) L 02/08/22 09:20 ABG pCO2 48.2 mm Hg 02/08/22 09:20 ABG pO2 114.7 mm Hg (80.0-90.0) H 02/08/22 09:20 ABG HCO3 25.0 mmol/L (20.0-26.0) 02/08/22 09:20 ABG O2 Saturation 97.9 % (95.0-99.0) 02/08/22 09:20 ABG O2 Content 15.1 (0.0-44) 02/08/22 09:20 ABG Base Excess -1.1 mmol/L (-2.0-3.0) 02/08/22 09:20 ABG Hemoglobin 11.1 gm/dl (14.0-18.0) L 02/08/22 09:20 ABG Carboxyhemoglobin 1.4 % (0.0-5.0) 02/08/22 09:20 ABG Methemoglobin 0.5 % (0.0-1.5) 02/08/22 09:20 Oxyhemoglobin 96.1 % (95.0-99.0) 02/08/22 09:20 FiO2 35 % 02/08/22 09:20 Sodium 141 mmol/L (137-145) 02/24/22 04:03 Potassium 3.8 mmol/L (3.6-5.0) 02/24/22 04:03 Chloride 106.2 mmol/L (98-107) 02/24/22 04:03 Carbon Dioxide 27 mmol/L (22-30) 02/24/22 04:03 Anion Gap 12 mmol/L 02/24/22 04:03 BUN 10 mg/dL (9-20) 02/24/22 04:03 Creatinine 0.5 mg/dL (0.8-1.3) L 02/24/22 04:03 Estimated GFR > 60 ml/min 02/24/22 04:03 BUN/Creatinine Ratio 20 % 02/24/22 04:03 Glucose 81 mg/dL (75-100) 02/24/22 04:03 Calcium 8.8 mg/dL (8.4-10.2) 02/24/22 04:03 Total Bilirubin 0.30 mg/dL (0.1-1.2) 02/23/22 04:08 AST 9 units/L (5-40) 02/23/22 04:08 ALT 11 units/L (7-56) 02/23/22 04:08 Alkaline Phosphatase 23 units/L (35-129) L 02/23/22 04:08 Total Protein 5.2 g/dL (6.3-8.2) L 02/23/22 04:08 Albumin 4.8 g/dL (3.9-5) 02/23/22 04:08 Albumin/Globulin Ratio 12.0 % 02/23/22 04:08 Actin IgG Antibody <20 U (<20) 02/16/22 04:52 Blood Type O POSITIVE 02/24/22 11:33 Antibody Screen Negative 02/24/22 11:33 Roberson/IV: Voiding Method Urinal Active Medications - Current Medications Current Medications: Generic Name Dose Route Start Last Admin Trade Name Freq PRN Reason Stop Dose Admin Acetaminophen 650 mg 02/06/22 15:00 03/03/22 05:16 Acetaminophen 325 Mg Tab PO 650 mg Q6H PRN Administration Pain MILD(1-3)/Fever >100.5/WEINBERG Albuterol 2.5 mg 02/06/22 15:00 02/15/22 21:54 Albuterol 2.5 Mg/3 Ml Nebu IH 2.5 mg Q3HRT PRN Administration Shortness Of Breath Diphenhydramine HCl 25 mg 02/15/22 14:06 02/16/22 11:49 Diphenhydramine 50 Mg/Ml Vial IV 25 mg Q6H PRN Administration Itching Enoxaparin Sodium 40 mg 02/06/22 22:00 03/02/22 22:03 Enoxaparin 40 Mg/0.4 Ml Inj SUB-Q 40 mg QDAY@2200 NESTOR Administration Protocol Famotidine 20 mg 02/12/22 10:00 03/02/22 22:03 Famotidine 20 Mg Tab PO 20 mg BID NESTOR Administration Hydrophilic Ointment 1 applic 02/07/22 10:55 Lip Therapy Vaseline TP Q2HR PRN Dry Lips Melatonin 5 mg 02/21/22 01:15 02/27/22 23:33 Melatonin 5 Mg Tab PO 5 mg QHS PRN Administration Sleep Multi-Ingred Cream/Lotion/Oil/Oint 1 applic 02/07/22 10:55 Mineral Oil/Petrolatum, White Ophth Oint 3.5 Gm OU Q4HR PRN Dry Eye(s) Mycophenolate Mofetil 1,000 mg 02/21/22 10:00 03/02/22 22:03 Mycophenolate 500 Mg Tab PO 1,000 mg BID NESTOR Administration Ondansetron HCl 4 mg 02/08/22 17:00 02/20/22 23:58 Ondansetron 4 Mg/2 Ml Inj IV 4 mg Q8H PRN Administration Nausea And Vomiting Oxycodone/Acetaminophen 1 tab 02/06/22 15:00 03/02/22 22:06 Oxycodone /Acetaminophen 5-325mg Tab PO 1 tab Q16H PRN Administration Pain, Moderate (4-6) Prednisone 60 mg 02/28/22 10:00 03/02/22 10:27 Prednisone 20 Mg Tab PO 60 mg QDAY NESTOR Administration Pyridostigmine [place] 120 mg 02/27/22 19:00 03/03/22 05:17 Pyridostigmine [place] 60 Mg Tab PO 120 mg Q6HR NESTOR Administration Senna/Docusate Sodium 1 tab 02/12/22 10:00 03/02/22 22:04 Sennosides/Docusate Sodium 8.6/50 Mg Tab PO 1 tab BID NESTOR Administration Sodium Chloride 10 ml 02/06/22 22:00 03/02/22 22:04 Sodium Chloride 0.9% 10 Ml Flush Syringe IV 10 ml BID NESTOR Administration Sodium Chloride 10 ml 02/06/22 13:59 Sodium Chloride 0.9% 10 Ml Flush Syringe IV PRN PRN LINE FLUSH Nutrition/Malnutrition Assess - Dietary Evaluation Nutrition/Malnutrition Findings: Nutrition Notes Start: 02/07/22 13:09 Freq: Status: Active Protocol: Document 02/27/22 14:07 PRADEEP (Rec: 02/27/22 14:34 PRADEEP [id number]) Nutrition Notes Initial or Follow up Reassessment Current Diagnosis Respiratory Failure Other Pertinent Diagnosis Myasthenia Gravis, ANTON, Hepatic Hemangiomas. Current Diet Regular Diet (since L 02/19). Labs/Tests 02/27: Crea 0.5. Pertinent Medications 02/27: Nutritionally unremarkable. Height 5 ft 10 in Weight 102 kg [place] Body Weight (kg) 75.45 BMI 32.2 Weight change and time frame No body weight change reported in 1 week. Weight Status Obese Subjective/Other Information RD consult for routine F/U on dietary advancement. No further reports available on Pt's PO intake of meals, will assess at F/U if possible . Pt is on Room Air, O2 saturation @ 96%, according to Physical Assessment History notes. Pt finished plasma exchange tratment and is cleared for discharge home with family, according to Progress notes. Percent of energy/protein needs met: Prescribed Regular Diet provides for energy/protein needs (2,289 Kcal/89 g) during LOS. Burn Absent Trauma Absent GI Symptoms None Food Allergy No Skin Integrity/Comment Assessment WNL. 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 No Is Patient Ambulatory and/or Out of Bed No REE-([facility]-confined to bed) 2349.732 Kcal/Kg value to use for calculation 20 Approximate Energy Requirements Using 2040 kcal/Kg Calculation Used for Recommendations Kcal/kg Additional Notes Protein: 0.8-1 g/Kg AdjBW; 71- 89 g/day. Fluids: 1 ml/Kcal, or as per MD. Nutrition Intervention Change Diet Order: Contrinue Regular Diet. Follow-Up By: 03/06/22 Additional Comments Continue monitoring food tolerance, %PO intake of meals , and BM.
[2022-03-03] MEDS: MYCOPHENOLATE 500 MG TAB PO SCH ×2 (10:14→22:06)
[2022-03-03] MEDS: predniSONE 20 MG TAB PO SCH (10:14)
[2022-03-03] MEDS: FAMOTIDINE 20 MG TAB PO SCH ×2 (10:14→22:06)
[2022-03-03] MEDS: SENNOSIDES/DOCUSATE SODIUM 8.6/50 MG TAB PO SCH ×2 (10:14→22:06)
--- NOTE | 2022-03-03 10:52 | Progress Note ---
Assessment and Plan 36 YO Male with MG currently taking Cellcept, Mycophenolate, and Prednisone presents ED for evaluation. Patient states that he had experienced generalized weakness over the past 1 day with progressive and worsening symptoms over the same timeframe. Patient states that he was able to walk earlier today but he is unable to walk. Patient also acknowledges upper extremity weakness as well as difficulty speaking. EMS was notified and upon arrival the patient was found to be in distress and subsequently transported to [facility] for further care and evaluation of the aforementioned symptoms. The patient was seen and evaluated in the emergency department. All lab and imaging studies reviewed. Patient found to have myasthenia gravis crisis with increased risk for worsening symptoms as well as development of acute hypoxemic respiratory failure. Patient placed on noninvasive positive pressure ventilation in the emergency department and admitted to ICU. IVIG ordered in the emergency department. Patient denies fever, chills, chest pain, palpitation productive cough, skin rash and recent Contact, known exposure to COVID-19. Patient eventually intubated and placed on mechanical ventilation. Patient extubated now. Patient has history vaping 2 times a day x 14 years. Stopped vaping 3 years ago. Denies alcohol abuse. Used Marijuna in his teenage years. Not used Marijuana for long time. 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 Not . Has no children. No known drug allergies. Patient has history of Sleep apnea. Uses CPAP 12 cm H2O during night time. Patient moved to medical floor. Patient Obese, awake and walking in the room.. Patient on room air. O2 saturation 98%. No acute respiratory distress at rest. Cpap on standy in the room. Patient states that weakness is better. Patient afebrile. No leukocytosis, Blood pressure 111/67, rate 54, respirations 18. Chest xray 02/10/22 Previous density of the left has almost completely cleared with only minimal basilar atelectasis remaining. Right lung field clear. No pneumothorax. CT scan of chest 02/08/[address] evidence of thymoma. Hypoattenuating lesions of the liver statistically reflect hepatic hemangiomas. One of these lesions demonstrate characteristic peripheral puddling of contrast, the second does not clearly demonstrate specific pattern of enhancement. Ultrasound targeting these lesions may be useful for further characterization and confirmation of hemangioma. Moderate subsegmental atelectasis of the bilateral lungs. Satisfactory positioning of endotracheal tube and esophagogastric tube. Chest xray done 02/17/22 reported No significant pulmonary or pleural abnormality. No pneumothorax. Left rib series done on 02/18/22 reported he left ribs appear unremarkable. There is no visible left rib fracture. No acute pulmonary disease. Patient is on Po Prednisone, Albuterol inhaler, S/C Lovenox and famotidine. I - Patient Problems (1) Acute hypoxemic respiratory failure Current Visit: Yes Status: Acute Plan to address problem: CPAP during night time. Continue prednisone. Continue S/C Lovenox. Continue famotidine. Albuterol inhaler prn for shortness of breath. (2) Obesity Current Visit: Yes Status: Acute Qualifiers: Body mass index: BMI 33.0-33.9 Plan to address problem: Counseled to loose weight Exercise and diet. (3) Sleep apnea Current Visit: Yes Status: Acute Plan to address problem: Patient says he has history of sleep apnea. No sleep study results available at this time. Continue CPAP as she is using at home. Recommend to loose weight. Explained sleep hygiene. Recommend not to drive or operate heavy equipment with sleepiness. Avoid alcohol, sedatives and Narcotics If sleep study is while back, recommend to repeat sleep study as out patient. (4) Myasthenia gravis Current Visit: Yes Status: Acute Plan to address problem: Patient finished course of plasmapheresis. Management as per primary care and neurology. Subjective Date of service: 03/03/22 Principal diagnosis: Myasthenic crisis; Obesity; Possible ANTON/OHS; Blurry vision; Hypokalemia Interval history: 36 YO Male with MG currently taking Cellcept, Mycophenolate, and Prednisone presents ED for evaluation. Patient states that he had experienced generalized weakness over the past 1 day with progressive and worsening symptoms over the same timeframe. Patient states that he was able to walk earlier today but he is unable to walk. Patient also acknowledges upper extremity weakness as well as difficulty speaking. EMS was notified and upon arrival the patient was found to be in distress and subsequently transported to [facility] for further care and evaluation of the aforementioned symptoms. The patient was seen and evaluated in the emergency department. All lab and imaging studies reviewed. Patient found to have myasthenia gravis crisis with increased risk for worsening symptoms as well as development of acute hypoxemic respiratory failure. Patient placed on noninvasive positive pressure ventilation in the emergency department and admitted to ICU. IVIG ordered in the emergency department. Patient denies fever, chills, chest pain, palpitation productive cough, skin rash and recent Contact, known exposure to COVID-19. Patient eventually intubated and placed on mechanical ventilation. Patient extubated now. Patient has history vaping 2 times a day x 14 years. Stopped vaping 3 years ago. Denies alcohol abuse. Used Marijuna in his teenage years. Not used Marijuana for long time. 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 Not . Has no children. No known drug allergies. Patient has history of Sleep apnea. Uses CPAP 12 cm H2O during night time. Patient moved to medical floor. Patient Obese, awake and walking in the room.. Patient on room air. O2 saturation 98%. No acute respiratory distress at rest. Cpap on standy in the room. Patient states that weakness is better. Patient afebrile. No leukocytosis, Blood pressure 111/67, rate 54, respirations 18. Chest xray 02/10/22 Previous density of the left has almost completely cleared with only minimal basilar atelectasis remaining. Right lung field clear. No pneumothorax. CT scan of chest 02/08/[address] evidence of thymoma. Hypoattenuating lesions of the liver statistically reflect hepatic hemangiomas. One of these lesions demonstrate characteristic peripheral puddling of contrast, the second does not clearly demonstrate specific pattern of enhancement. Ultrasound targeting these lesions may be useful for further characterization and confirmation of hemangioma. Moderate subsegmental atelectasis of the bilateral lungs. Satisfactory positioning of endotracheal tube and esophagogastric tube. Chest xray done 02/17/22 reported No significant pulmonary or pleural abnormality. No pneumothorax. Left rib series done on 02/18/22 reported he left ribs appear unremarkable. There is no visible left rib fracture. No acute pulmonary disease. Patient is on Po Prednisone, Albuterol inhaler, S/C Lovenox and famotidine. Objective Vital Signs - 12hr 03/03/22 04:20 Pulse Rate 60 Respiratory 20 Rate O2 Sat by Pulse 100 Oximetry Constitutional: no acute distress, alert, other (young obese male without increased respiratory effort at rest) Eyes: non-icteric ENT: oropharynx moist Neck: supple, no lymphadenopathy, no JVD, other (large circumference) Effort: normal Ascultation: Bilateral: diminished breath sounds Percussion: Bilateral: not dull Cardiovascular: regular rate and rhythm Gastrointestinal: normoactive bowel sounds, soft, non-tender, non-distended (protuberant) Integumentary: normal Extremities: no cyanosis, no edema, pulses normal, no ischemia or petechiae Neurologic: non-focal exam (grossly), pupils equal and round, CN II-XII normal, other (weak (3-4/5)) Psychiatric: mood appropriate, affect normal CBC and BMP: 02/24/22 04:03 02/24/22 04:03 ABG, PT/INR, D-dimer: ABG ABG pH 7.333 pH Units (7.350-7.450) L 02/08/22 09:20 ABG pCO2 48.2 mm Hg 02/08/22 09:20 ABG pO2 114.7 mm Hg (80.0-90.0) H 02/08/22 09:20 ABG O2 Saturation 97.9 % (95.0-99.0) 02/08/22 09:20 Abnormal lab findings: Abnormal Labs 02/06/22 02/06/22 02/06/22 12:39 12:39 13:59 WBC RBC 5.75 H Hgb Hct MCV 74 L MCH 23 L MCHC 30 L RDW 16.9 H Lymph % (Auto) 6.4 L [place] % (Auto) Lymph # (Auto) 0.5 L [place] # (Auto) Seg Neutrophils % 89.3 H Seg Neutrophils # Fibrinogen ABG pH ABG pO2 ABG Hemoglobin 12.6 L Oxyhemoglobin Potassium 3.5 L Chloride 109.1 H Carbon Dioxide 20 L Creatinine 0.7 L Glucose 113 H Alkaline Phosphatase Total Protein Albumin 02/07/22 02/07/22 02/08/22 04:15 12:00 04:23 WBC RBC 5.10 H Hgb 11.5 L 11.0 L Hct MCV 72 L 74 L MCH 23 L 22 L MCHC 30 L RDW 17.3 H 17.1 H Lymph % (Auto) [place] % (Auto) 9.1 H Lymph # (Auto) [place] # (Auto) Seg Neutrophils % Seg Neutrophils # Fibrinogen ABG pH ABG pO2 72.6 L ABG Hemoglobin 12.2 L Oxyhemoglobin 94.4 L Potassium Chloride Carbon Dioxide Creatinine Glucose Alkaline Phosphatase Total Protein Albumin 02/08/22 02/08/22 02/09/22 04:23 09:20 04:50 WBC RBC Hgb 10.4 L Hct 33.7 L MCV 73 L MCH 22 L MCHC 31 L RDW 17.5 H Lymph % (Auto) [place] % (Auto) Lymph # (Auto) [place] # (Auto) Seg Neutrophils % Seg Neutrophils # Fibrinogen ABG pH 7.333 L ABG pO2 114.7 H ABG Hemoglobin 11.1 L Oxyhemoglobin Potassium Chloride 109.3 H Carbon Dioxide Creatinine 0.6 L Glucose Alkaline Phosphatase Total Protein Albumin 02/09/22 02/10/22 02/11/22 04:50 04:50 04:38 WBC 4.4 L 3.3 L RBC Hgb 10.1 L 10.4 L Hct 32.9 L 33.6 L MCV 73 L 73 L MCH 22 L 23 L MCHC 31 L 31 L RDW 17.2 H 17.0 H Lymph % (Auto) [place] % (Auto) Lymph # (Auto) [place] # (Auto) Seg Neutrophils % Seg Neutrophils # Fibrinogen ABG pH ABG pO2 ABG Hemoglobin Oxyhemoglobin Potassium Chloride Carbon Dioxide Creatinine Glucose 107 H Alkaline Phosphatase Total Protein Albumin 02/11/22 02/12/22 02/13/22 04:38 04:25 04:17 WBC 3.7 L 3.5 L RBC Hgb 10.5 L 10.8 L Hct 34.5 L MCV 73 L 73 L MCH 22 L 22 L MCHC 30 L 30 L RDW 16.9 H 17.5 H Lymph % (Auto) [place] % (Auto) Lymph # (Auto) [place] # (Auto) Seg Neutrophils % Seg Neutrophils # Fibrinogen ABG pH ABG pO2 ABG Hemoglobin Oxyhemoglobin Potassium Chloride Carbon Dioxide Creatinine 0.7 L Glucose 101 H Alkaline Phosphatase Total Protein Albumin 02/16/22 02/16/22 02/18/22 04:52 04:52 07:18 WBC RBC Hgb 11.4 L 11.4 L Hct 35.3 L MCV 71 L 72 L MCH 23 L 23 L MCHC RDW 17.4 H 17.3 H Lymph % (Auto) 43.5 H [place] % (Auto) 7.6 H 7.6 H Lymph # (Auto) [place] # (Auto) Seg Neutrophils % 71.5 H Seg Neutrophils # Fibrinogen ABG pH ABG pO2 ABG Hemoglobin Oxyhemoglobin Potassium Chloride Carbon Dioxide Creatinine 0.6 L Glucose Alkaline Phosphatase Total Protein Albumin 3.5 L 02/18/22 02/18/22 02/20/22 07:18 07:18 04:23 WBC RBC 5.22 H Hgb 11.6 L Hct MCV 73 L MCH 22 L MCHC 31 L RDW 18.0 H Lymph % (Auto) [place] % (Auto) Lymph # (Auto) [place] # (Auto) Seg Neutrophils % Seg Neutrophils # Fibrinogen 144 L* ABG pH ABG pO2 ABG Hemoglobin Oxyhemoglobin Potassium Chloride Carbon Dioxide Creatinine 0.5 L Glucose Alkaline Phosphatase Total Protein Albumin 02/20/22 02/20/22 02/21/22 04:23 04:23 09:50 WBC 13.1 H RBC 5.36 H Hgb Hct MCV 73 L MCH 22 L MCHC 31 L RDW 18.4 H Lymph % (Auto) [place] % (Auto) Lymph # (Auto) [place] # (Auto) 1.0 H Seg Neutrophils % Seg Neutrophils # 8.5 H Fibrinogen 89 L* ABG pH ABG pO2 ABG Hemoglobin Oxyhemoglobin Potassium Chloride Carbon Dioxide Creatinine 0.5 L Glucose 107 H Alkaline Phosphatase Total Protein Albumin 02/21/22 02/21/22 02/22/22 09:50 09:50 03:30 WBC 11.7 H RBC 5.16 H Hgb 11.4 L Hct MCV 73 L MCH 22 L MCHC 31 L RDW 18.5 H Lymph % (Auto) [place] % (Auto) Lymph # (Auto) [place] # (Auto) Seg Neutrophils % Seg Neutrophils # Fibrinogen 100 L* ABG pH ABG pO2 ABG Hemoglobin Oxyhemoglobin Potassium Chloride Carbon Dioxide Creatinine 0.7 L Glucose Alkaline Phosphatase Total Protein Albumin 02/22/22 02/22/22 02/23/22 03:30 10:11 04:08 WBC 11.4 H RBC Hgb 10.5 L Hct 33.9 L MCV 72 L MCH 22 L MCHC 31 L RDW 19.3 H Lymph % (Auto) [place] % (Auto) Lymph # (Auto) [place] # (Auto) Seg Neutrophils % Seg Neutrophils # Fibrinogen 114 L* ABG pH ABG pO2 ABG Hemoglobin Oxyhemoglobin Potassium Chloride Carbon Dioxide Creatinine 0.5 L Glucose Alkaline Phosphatase Total Protein 5.8 L Albumin 02/23/22 02/24/22 02/24/22 04:08 04:03 04:03 WBC RBC Hgb 10.3 L Hct 33.2 L MCV 72 L MCH 22 L MCHC 31 L RDW 19.0 H Lymph % (Auto) [place] % (Auto) Lymph # (Auto) [place] # (Auto) Seg Neutrophils % Seg Neutrophils # Fibrinogen 68 L* ABG pH ABG pO2 ABG Hemoglobin Oxyhemoglobin Potassium Chloride Carbon Dioxide Creatinine 0.5 L Glucose Alkaline Phosphatase 23 L Total Protein 5.2 L Albumin 02/24/22 04:03 WBC RBC Hgb Hct MCV MCH MCHC RDW Lymph % (Auto) [place] % (Auto) Lymph # (Auto) [place] # (Auto) Seg Neutrophils % Seg Neutrophils # Fibrinogen ABG pH ABG pO2 ABG Hemoglobin Oxyhemoglobin Potassium Chloride Carbon Dioxide Creatinine 0.5 L Glucose Alkaline Phosphatase Total Protein Albumin Allied health notes reviewed: nursing
[2022-03-03] MEDS: oxyCODONE /ACETAMINOPHEN 5-325MG TAB PO PRN (22:05)
[2022-03-03] MEDS: ENOXAPARIN 40 MG/0.4 ML INJ SUB-Q SCH (22:06)
[2022-03-04] MEDS: PYRIDOSTIGMINE BROMIDE 60 MG TAB PO SCH ×4 (06:09→23:53)
--- NOTE | 2022-03-04 09:16 | Progress Note ---
Assessment and Plan Assessment and plan: This is a 36-year-old male with known past medical history of obesity and myasthenia gravis admitted for myasthenia gravis crisis. 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 He was passing through [place] when symptoms started - S/p emergent intubation by anethesia - CT chest w con showed no evidence of thymoma - Neurology consulted, appreciated recommendations - Resumed home meds: Cellcept, Mestinon, and PO Prednisone - Completed X 5 days of IVIG - Plasma exchange initiated on 02/16, Received X2 treament. For a total of 5 exchanges to be completed over 9 days. - CCM also on consult, appreciated recommendations - Patient reported that his neurologist in [place] is Dr. Billie Delgado - Transfer to [facility] was declined, no available ICU beds at this time. They recommend continuing IVIG and possible plasma exchange -Plasmapheresis being done today and FFP's were ordered as fibrinogen is low #Acute Hypoxemic Respiratory Failure #Probable ANTON- On CPAP at home #Former Smoker - most likely related to MG crisis - S/p emergent intubation by anesthesia on 02/07 for airway protection - 02/09 s/p extubation - Stable on RA this am - CCM consulted, appreciate recommendations - Completed X5 days of IVIG - Continue plasma exchange and IS ordered - Continue Bipap at night - Aspiration precaution HOB above 30 - PRN O2 supplementation as needed - Continue SPO2 monitoring for SPO2 goal above 92% #Hepatic Hemangiomas - noted fro CT chest w/o con - Stable, LFTs within normal range - Outpatient follow up for US and further workups #Obesity - Balanced diet, increase physical activity discharge, outpatient pulmonary follow-up for sleep study, weight reduction. #GI/DVT Prophylaxis - PPI- Pepcid - Lovenox SubQ - SCD to bilateral lower extremities while in bed Hospital Course to Date: 02/07: S/p X1 dose of IV IG overnight, patient reported feeling much better and stronger this am, moving all extremities. Plan to wean off Bipap this am. Okay to start a diet if patient pass bedside swallow. D/W CCM plan for CT chest w con tomorrow to r/o thymoma. Neurology consulted. 02/08: S/p emergent intubation by anethesia yesterday. Now intubated and sedated, RASS -2. Neurology recommendations noted. Resumed home meds. Will wean off sedation this am for possible SAT/SBT. CT chest also noted with no evidence of thymoma. Continue IVIG. Attending received call back from [facility]. Transfer was declined, no available ICU beds at this time. They recommend continuing IVIG and possible plasma exchange. Awaiting on Neurology final recommendations. 02/09: S/p Extubation this am. Desated to 85% on 3L NC, SPO2 improved to 88% on 8L NC. This am CXR noted, worsen opacity of the left side. CCM at the bedside, X1 dose of IV Lasix ordered and place patient on Bipap. Low Threshold for reintubation. Plan of care and the high probability for reintubation was discussed with patient at the bedside. Patient verbalized understanding and agree with current care plan. Continue IVIG, Awaiting on Neurology final recommendations. 02/10: Tolerated Bipap, now on 2L NC this am, SPO2 at 100%. No s/s of any acute respiratory distress noted. This am CXR also noted with significant improvement. Continue IVIGm and Bipap at night. Incentive Spirometer also ordered. advance diet as tolerated. PT/OT/Speech consulted. 02/11: Completed x5days of IVIG overnight. Stable on RA, still complaining of generalized weakness, other stable. Diet advanced to solid this am, patient is tolerating it. Continue IS and Bipap at night. Encourage mobility as tolerated, PT/OT/Speech consult pending. 02/12: CPAP prn, currently on RA. Improved strength to BLE and BUE per patient. 02/13: Increased weakness reported on encounter. increased steroid dose to prednisone 40 mg po daily. Continue pyridostigmine and cellcept. Possible d/c tomorrow. 02/14: Weakness improved however still continues to have difficulty with stre ngth. Still has right eye lid droop. Patient increased to prednisone 60 mg po daily. He has had 4 myasthenia gravis crises in the past and was initiated on high dose steroids with data communications technician taper by her OP neurologist. Pt recommended home with home health care PT. Ambulation is challenging as patient requires a rolling walker. 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 Patient is not a resident of [place]. States his home state is [place]. He has a sister in [place] who's address he uses for mailing purposes. Will work with CM to coordinate placement. 02/15: worsened strength. Admits to dysphagia and shortness of breath today. Given worsening symptmology transferring back to ICU for close monitoring. Plasma exchange ordered, first tx tomorrow, coordinated with Dr Katya Manley. Will place vascath today/tomorrow AM for exchanges. Steroid dose increased to Prednisone 80 mg po daily in interim. Will attempt to call neurologist tomorrow AM. 02/16: Plan for plasma exchange today. Labs reviewed, cbc/bmp/fibrinogen all unremarkable. Trialysis catheter placed, pt tolerated procedure well. Taryn Manley will be here today do 4L exchange. A total of 5 exchanges will be completed over 9 days. A total of 20 L 5% albumin will be needed, pharmacy was notified yesterday of this. Continue prednisone 80 mg po daily dose. 02/17: No overnight events. No acute complaints. Tolerated PLEX well. Continue steroids and will follow for symptom improvement. 02/18: Plex tx today. XR ordered due to severe rib pain, no rib fx ID. Will continue to follow for sx improvement. 02/19: Doing much better this am. OOB and sitting up in the chair this am, stable on RA. Still complaining of generalized but reported feeling better. Continue plasma exchange and PO prednisone, cellcept, and Mycophenolate. Continue PT/OT. 02/20: Patient seen and examined, clinically showing some improvement, will continue on current Prednisone Dose, patients fibrinogen is lower than 100, we do not have plasma inhouse, patient will undergo PLEX with Albumin and recieve Cyroprecipitated (Ordered) after per the [facility] team. Continue to monitor NIF Continue IMCU care in this critically ill patient. 02/21: Tolerated PLEX yesterday, Fibrinogen improved to 100. Patient has leukocytosis today without fever, no new neuro deficits reported today. Will request Neuro-revaluation. Case management continues to work on safe discharge plan. Plan discussed with the patient. Dispo based on evaluation by Neuro 02/22: Patient seen and examined today, awaiting 4/5 PLEX therapy, awaiting Neurology re-evaluation. Discussed with case management and patient about discharge plans. 02/23: Patient seen and examined, Neurology input noted: change mestinon from 180 mg po qday to 60 mg po tid; prednisone from 80 mg po qday to 40 mg po qday; continue cellcept (per home regimen); plex 4/5 ongoing at bedside today; pt/ot/st evaluation/monitoring; f/u established neurologist within 2 weeks post- discharge. Patient can be discharged after THE LAST PLEX TOMORROW. 02/24/2022 Patient receiving plasma exchange and FFP's 02/25/2022 Patient finished course of plasma exchanges and FFP's Patient to be tapered on prednisone from 80 mg Had extensive discussion with the patient Patient lives in [place] and is on Mestinon and prednisone Patient is willing to fly back to [place] and follow-up with his PCP Patient to be discharged on prednisone tapering dose 60 mg for 5 days 40 mg for 5 days 20 mg for 5 days and then continue at 10 mg 02/26/2022. Patient completed plasma exchange and FFP. Continue prednisone taper. Apparently, pulmonary wants to continue to monitor the patient for 24 hours. Anticipate discharge later today or in a.m. 02/27/2022: Discharge home today. rx for prednisone, mestinon, and cellcept provided. 02/28; d/c cancelled yesterday as patient was experiencing weakness. Feels as though he is "flaring" Mestonin increased to 120 mg q6hr. Monitor for anticholinergic side effects. Continue prednisone at high dose and continue cellcept at home dose 1000 mg po bid. Again this patient likely has suboptimal maintenance therapy...do not lower prednisone dose at this time . PT eval and continued exercises ordered. Unfortunately placement of this patient will be challenging as he lives out of his truck and insurance status will make his placement tough. 02/28: Continue med therapy for MG. PT recommend [facility] w/ rolling walker. will to continue to work with patient today. Extensive discussion with CM re: placement during rounds today. Will work towards safe discharge plan. 03/01: Discharge canceled. 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 D/w CM during rounds who will need to find alternative solution...this patient absolutely cannot return to semi-truck as it poses a danger not only to self but to others should he operate it. D/w LANDSCAPING SPECIALIST regarding difficult placement. 03/02: Patient doing well this morning. He states his weakness is gradually improving. Denies any anticholinergic effects of pyridostigmine dosing. Placement for the patient continues to be a challenge. Discussed with CM and re viewed note from Saturday. Patient has desire to go back to living in truck. He does not however have a "community"/adequate support system and the current lot that the truck is currently parked in does not have living quarters as previously believed to be the case. Previously when questioning the patient about his community, the patient stated that he does not really have any friends and is estranged from family who could potentially help look after them. He states that the lot that the truck is currently in has no attendants on weekends. Discharging the patient back to his truck would absolutely not be the safest option for this patient and could potentially pose a public hazard should the patient decide to operate his vehicle given his current condition. While the patient has expressed that he will not operate his vehicle, I would recommend that the patient be discharged in a personal prison/apartment/ or living situation with family/friend that does not involve living in his motor vehicle so he can continue with physical rehab therapy. I also recommend that he gets full clearance from an outpatient physician and/or neurologist prior to returning to operate his vehicle. I discussed this with the patient as well as potential concerns of him going back to the truck and he voiced understanding with this. All things considered, given the patient's improvement this weekend, we will continue to follow for improvement in his clinical condition to the point where he may potentially not need assistance. We will continue to work with case management for additional assistance in a safe discharge. 03/03: No acute complaints on encounter. Patient states that he feels like his weakness is improving. We will continue to follow for clinical improvement. Total Time Spent with Patient (Minutes): 45 History Interval history: No acute complaints. Hospitalist Physical - Physical exam Narrative exam: Narrative exam: General appearance: Present: no acute distress, well-nourished, obese - EENT Eyes: Present: PERRL ENT: dentition normal, hearing decreased - Neck Neck: Present: normal ROM - Respiratory Respiratory effort: normal Respiratory: bilateral: diminished - Cardiovascular Rhythm: regular Heart Sounds: Present: S1 & S2. Absent: systolic murmur, diastolic murmur - Extremities Extremities: no ischemia, pulses intact, pulses symmetrical, No edema, normal temperature, normal color Peripheral Pulses: within normal limits - Abdominal General gastrointestinal: soft, non-tender, non-distended, normal bowel sounds - Integumentary Integumentary: Present: warm, dry - Psychiatric Psychiatric: appropriate mood/affect, cooperative - Neurologic Neurologic: no focal deficits, moves all extremities - Allied Health Allied health notes reviewed: nursing, RT, social work - Constitutional Vitals: Temp Pulse Resp BP Pulse Ox 97.9 F 53 L 18 125/78 100 03/04/22 04:28 03/04/22 04:28 03/04/22 04:28 03/04/22 04:28 03/04/22 04:28 General appearance: Present: no acute distress, well-nourished Results - Labs CBC & Chem 7: 02/24/22 04:03 02/24/22 04:03 Labs: Laboratory Last Values WBC 10.4 K/mm3 (4.5-11.0) 02/24/22 04:03 RBC 4.60 M/mm3 (3.65-5.03) 02/24/22 04:03 Hgb 10.3 gm/dl (11.8-15.2) L 02/24/22 04:03 Hct 33.2 % (35.5-45.6) L 02/24/22 04:03 MCV 72 fl (84-94) L 02/24/22 04:03 MCH 22 pg (28-32) L 02/24/22 04:03 MCHC 31 % (32-34) L 02/24/22 04:03 RDW 19.0 % (13.2-15.2) H 02/24/22 04:03 Plt Count 235 K/mm3 (140-440) 02/24/22 04:03 Lymph % (Auto) 27.4 % (13.4-35.0) 02/21/22 09:50 Irwin % (Auto) 7.3 % (0.0-7.3) 02/21/22 09:50 Eos % (Auto) 0.1 % (0.0-4.3) 02/21/22 09:50 Baso % (Auto) 0.2 % (0.0-1.8) 02/21/22 09:50 Lymph # (Auto) 3.6 K/mm3 (1.2-5.4) 02/21/22 09:50 Irwin # (Auto) 1.0 K/mm3 (0.0-0.8) H 02/21/22 09:50 Eos # (Auto) 0.0 K/mm3 (0.0-0.4) 02/21/22 09:50 Baso # (Auto) 0.0 K/mm3 (0.0-0.1) 02/21/22 09:50 Seg Neutrophils % 65.0 % (40.0-70.0) 02/21/22 09:50 Seg Neutrophils # 8.5 K/mm3 (1.8-7.7) H 02/21/22 09:50 Fibrinogen 68 mg/dl (211-480) L* 02/24/22 04:03 ABG pH 7.333 pH Units (7.350-7.450) L 02/08/22 09:20 ABG pCO2 48.2 mm Hg 02/08/22 09:20 ABG pO2 114.7 mm Hg (80.0-90.0) H 02/08/22 09:20 ABG HCO3 25.0 mmol/L (20.0-26.0) 02/08/22 09:20 ABG O2 Saturation 97.9 % (95.0-99.0) 02/08/22 09:20 ABG O2 Content 15.1 (0.0-44) 02/08/22 09:20 ABG Base Excess -1.1 mmol/L (-2.0-3.0) 02/08/22 09:20 ABG Hemoglobin 11.1 gm/dl (14.0-18.0) L 02/08/22 09:20 ABG Carboxyhemoglobin 1.4 % (0.0-5.0) 02/08/22 09:20 ABG Methemoglobin 0.5 % (0.0-1.5) 02/08/22 09:20 Oxyhemoglobin 96.1 % (95.0-99.0) 02/08/22 09:20 FiO2 35 % 02/08/22 09:20 Sodium 141 mmol/L (137-145) 02/24/22 04:03 Potassium 3.8 mmol/L (3.6-5.0) 02/24/22 04:03 Chloride 106.2 mmol/L (98-107) 02/24/22 04:03 Carbon Dioxide 27 mmol/L (22-30) 02/24/22 04:03 Anion Gap 12 mmol/L 02/24/22 04:03 BUN 10 mg/dL (9-20) 02/24/22 04:03 Creatinine 0.5 mg/dL (0.8-1.3) L 02/24/22 04:03 Estimated GFR > 60 ml/min 02/24/22 04:03 BUN/Creatinine Ratio 20 % 02/24/22 04:03 Glucose 81 mg/dL (75-100) 02/24/22 04:03 POC Glucose 96 mg/dL (70-105) 03/03/22 11:32 Calcium 8.8 mg/dL (8.4-10.2) 02/24/22 04:03 Total Bilirubin 0.30 mg/dL (0.1-1.2) 02/23/22 04:08 AST 9 units/L (5-40) 02/23/22 04:08 ALT 11 units/L (7-56) 02/23/22 04:08 Alkaline Phosphatase 23 units/L (35-129) L 02/23/22 04:08 Total Protein 5.2 g/dL (6.3-8.2) L 02/23/22 04:08 Albumin 4.8 g/dL (3.9-5) 02/23/22 04:08 Albumin/Globulin Ratio 12.0 % 02/23/22 04:08 Actin IgG Antibody <20 U (<20) 02/16/22 04:52 Blood Type O POSITIVE 02/24/22 11:33 Antibody Screen Negative 02/24/22 11:33 Roberson/IV: Voiding Method Urinal Active Medications - Current Medications Current Medications: Generic Name Dose Route Start Last Admin Trade Name Freq PRN Reason Stop Dose Admin Acetaminophen 650 mg 02/06/22 15:00 03/03/22 05:16 Acetaminophen 325 Mg Tab PO 650 mg Q6H PRN Administration Pain MILD(1-3)/Fever >100.5/WEINBERG Albuterol 2.5 mg 02/06/22 15:00 02/15/22 21:54 Albuterol 2.5 Mg/3 Ml Nebu IH 2.5 mg Q3HRT PRN Administration Shortness Of Breath Diphenhydramine HCl 25 mg 02/15/22 14:06 02/16/22 11:49 Diphenhydramine 50 Mg/Ml Vial IV 25 mg Q6H PRN Administration Itching Enoxaparin Sodium 40 mg 02/06/22 22:00 03/03/22 22:06 Enoxaparin 40 Mg/0.4 Ml Inj SUB-Q 40 mg QDAY@2200 NESTOR Administration Protocol Famotidine 20 mg 02/12/22 10:00 03/03/22 22:06 Famotidine 20 Mg Tab PO 20 mg BID NESTOR Administration Hydrophilic Ointment 1 applic 02/07/22 10:55 Lip Therapy Vaseline TP Q2HR PRN Dry Lips Melatonin 5 mg 02/21/22 01:15 02/27/22 23:33 Melatonin 5 Mg Tab PO 5 mg QHS PRN Administration Sleep Multi-Ingred Cream/Lotion/Oil/Oint 1 applic 02/07/22 10:55 Mineral Oil/Petrolatum, White Ophth Oint 3.5 Gm OU Q4HR PRN Dry Eye(s) Mycophenolate Mofetil 1,000 mg 02/21/22 10:00 03/03/22 22:06 Mycophenolate 500 Mg Tab PO 1,000 mg BID NESTOR Administration Ondansetron HCl 4 mg 02/08/22 17:00 02/20/22 23:58 Ondansetron 4 Mg/2 Ml Inj IV 4 mg Q8H PRN Administration Nausea And Vomiting Oxycodone/Acetaminophen 1 tab 02/06/22 15:00 03/03/22 22:05 Oxycodone /Acetaminophen 5-325mg Tab PO 1 tab Q16H PRN Administration Pain, Moderate (4-6) Prednisone 60 mg 02/28/22 10:00 03/03/22 10:14 Prednisone 20 Mg Tab PO 60 mg QDAY NESTOR Administration Pyridostigmine [place] 120 mg 02/27/22 19:00 03/04/22 06:09 Pyridostigmine [place] 60 Mg Tab PO 120 mg Q6HR NESTOR Administration Senna/Docusate Sodium 1 tab 02/12/22 10:00 03/03/22 22:06 Sennosides/Docusate Sodium 8.6/50 Mg Tab PO 1 tab BID NESTOR Administration Sodium Chloride 10 ml 02/06/22 22:00 03/03/22 22:06 Sodium Chloride 0.9% 10 Ml Flush Syringe IV 10 ml BID NESTOR Administration Sodium Chloride 10 ml 02/06/22 13:59 Sodium Chloride 0.9% 10 Ml Flush Syringe IV PRN PRN LINE FLUSH Nutrition/Malnutrition Assess - Dietary Evaluation Nutrition/Malnutrition Findings: Nutrition Notes Start: 02/07/22 13:09 Freq: Status: Active Protocol: Document 02/27/22 14:07 PRADEEP (Rec: 02/27/22 14:34 PRADEEP [email or web address]) Nutrition Notes Initial or Follow up Reassessment Current Diagnosis Respiratory Failure Other Pertinent Diagnosis Myasthenia Gravis, ANTON, Hepatic Hemangiomas. Current Diet Regular Diet (since L 02/19). Labs/Tests 02/27: Crea 0.5. Pertinent Medications 02/27: Nutritionally unremarkable. Height 5 ft 10 in Weight 102 kg [place] Body Weight (kg) 75.45 BMI 32.2 Weight change and time frame No body weight change reported in 1 week. Weight Status Obese Subjective/Other Information RD consult for routine F/U on dietary advancement. No further reports available on Pt's PO intake of meals, will assess at F/U if possible . Pt is on Room Air, O2 saturation @ 96%, according to Physical Assessment History notes. Pt finished plasma exchange tratment and is cleared for discharge home with family, according to Progress notes. Percent of energy/protein needs met: Prescribed Regular Diet provides for energy/protein needs (2,289 Kcal/89 g) during LOS. Burn Absent Trauma Absent GI Symptoms None Food Allergy No Skin Integrity/Comment Assessment WNL. Minimum of two criteria No Fluid Accumulation N/A Reduced Tie Carrier Strength N/A (non-severe) Protein-Calorie Malnutrition N\\A Is patient on ventilator? No Is Patient Ambulatory and/or Out of Bed No REE-([place]-confined to bed) 2349.732 Kcal/Kg value to use for calculation 20 Approximate Energy Requirements Using 2040 kcal/Kg Calculation Used for Recommendations Kcal/kg Additional Notes Protein: 0.8-1 g/Kg AdjBW; 71- 89 g/day. Fluids: 1 ml/Kcal, or as per MD. Nutrition Intervention Change Diet Order: Contrinue Regular Diet. Follow-Up By: 03/06/22 Additional Comments Continue monitoring food tolerance, %PO intake of meals , and BM.
[2022-03-04] MEDS: SENNOSIDES/DOCUSATE SODIUM 8.6/50 MG TAB PO SCH ×2 (10:10→21:27)
[2022-03-04] MEDS: FAMOTIDINE 20 MG TAB PO SCH ×2 (10:11→21:27)
[2022-03-04] MEDS: MYCOPHENOLATE 500 MG TAB PO SCH ×2 (10:11→21:28)
[2022-03-04] MEDS: predniSONE 20 MG TAB PO SCH (10:11)
[2022-03-04] MEDS: ACETAMINOPHEN 325 MG TAB PO PRN (10:15)
--- NOTE | 2022-03-04 14:05 | Progress Note ---
Assessment and Plan 36 YO Male with MG currently taking Cellcept, Mycophenolate, and Prednisone presents ED for evaluation. Patient states that he had experienced generalized weakness over the past 1 day with progressive and worsening symptoms over the same timeframe. Patient states that he was able to walk earlier today but he is unable to walk. Patient also acknowledges upper extremity weakness as well as difficulty speaking. EMS was notified and upon arrival the patient was found to be in distress and subsequently transported to [facility] for further care and evaluation of the aforementioned symptoms. The patient was seen and evaluated in the emergency department. All lab and imaging studies reviewed. Patient found to have myasthenia gravis crisis with increased risk for worsening symptoms as well as development of acute hypoxemic respiratory failure. Patient placed on noninvasive positive pressure ventilation in the emergency department and admitted to ICU. IVIG ordered in the emergency department. Patient denies fever, chills, chest pain, palpitation productive cough, skin rash and recent Contact, known exposure to COVID-19. Patient eventually intubated and placed on mechanical ventilation. Patient extubated now. Patient has history vaping 2 times a day x 14 years. Stopped vaping 3 years ago. Denies alcohol abuse. Used Marijuna in his teenage years. Not used Marijuana for long time. 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 Has no children. No known drug allergies. Patient has history of Sleep apnea. Uses CPAP 12 cm H2O during night time. Patient moved to medical floor. Patient Obese, awake . Patient resting on room air. O2 saturation 100%. No acute respiratory distress at rest. Cpap on standy in the room. Patient states that weakness is better. Patient afebrile. No leukocytosis, Blood pressure 112/50, rate 61, respirations 18. Chest xray 02/10/22 Previous density of the left has almost completely cleared with only minimal basilar atelectasis remaining. Right lung field clear. No pneumothorax. CT scan of chest 02/08/[address] evidence of thymoma. Hypoattenuating lesions of the liver statistically reflect hepatic hemangiomas. One of these lesions demonstrate characteristic peripheral puddling of contrast, the second does not clearly demonstrate specific pattern of enhancement. Ultrasound targeting these lesions may be useful for further characterization and confirmation of hemangioma. Moderate subsegmental atelectasis of the bilateral lungs. Satisfactory positioning of endotracheal t ube and esophagogastric tube. Chest xray done 02/17/22 reported No significant pulmonary or pleural abnormality. No pneumothorax. Left rib series done on 02/18/22 reported he left ribs appear unremarkable. There is no visible left rib fracture. No acute pulmonary disease. Patient is on Po Prednisone, Albuterol inhaler, S/C Lovenox and famotidine. I - Patient Problems (1) Acute hypoxemic respiratory failure Current Visit: Yes Status: Acute Plan to address problem: CPAP during night time. Continue prednisone. Continue S/C Lovenox. Continue famotidine. Albuterol inhaler prn for shortness of breath. (2) Obesity Current Visit: Yes Status: Acute Qualifiers: Body mass index: BMI 33.0-33.9 Plan to address problem: Counseled to loose weight Exercise and diet. (3) Sleep apnea Current Visit: Yes Status: Acute Plan to address problem: Patient says he has history of sleep apnea. No sleep study results available at this time. Continue CPAP as she is using at home. Recommend to loose weight. Explained sleep hygiene. Recommend not to drive or operate heavy equipment with sleepiness. Avoid alcohol, sedatives and Narcotics If sleep study is while back, recommend to repeat sleep study as out patient. (4) Myasthenia gravis Current Visit: Yes Status: Acute Plan to address problem: Patient finished course of plasmapheresis. Management as per primary care and neurology. Subjective Date of service: 03/04/22 Principal diagnosis: Myasthenic crisis; Obesity; Possible ANOTN/OHS; Blurry vi frannie; Hypokalemia Interval history: 36 YO Male with MG currently taking Cellcept, Mycophenolate, and Prednisone presents ED for evaluation. Patient states that he had experienced generalized weakness over the past 1 day with progressive and worsening symptoms over the [facility] timeframe. Patient states that he was able to walk earlier today but he is unable to walk. Patient also acknowledges upper extremity weakness as well as difficulty speaking. EMS was notified and upon arrival the patient was found to be in distress and subsequently transported to [facility] for further care and evaluation of the aforementioned symptoms. The patient was seen and evaluated in the emergency department. All lab and imaging studies reviewed. Patient found to have myasthenia gravis crisis with increased risk for worsening symptoms as well as development of acute hypoxemic respiratory failure. Patient placed on noninvasive positive pressure ventilation in the emergency department and admitted to ICU. IVIG ordered in the emergency department. Patient denies fever, chills, chest pain, palpitation productive cough, skin rash and recent Contact, known exposure to COVID-19. Patient eventually intubated and placed on mechanical ventilation. Patient extubated now. Patient has history vaping 2 times a day x 14 years. Stopped vaping 3 years ago. Denies alcohol abuse. Used Marijuna in his teenage years. Not used Marijuana for long time. 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 Has no children. No known drug allergies. Patient has history of Sleep apnea. Uses CPAP 12 cm H2O during night time. Patient moved to medical floor. Patient Obese, awake . Patient resting on room air. O2 saturation 100%. No acute respiratory distress at rest. Cpap on standy in the room. Patient states that weakness is better. Patient afebrile. No leukocytosis, Blood pressure 112/50, rate 61, respirations 18. Chest xray 02/10/22 Previous density of the left has almost completely cleared with only minimal basilar atelectasis remaining. Right lung field clear. No pneumothorax. CT scan of chest 02/08/[address] evidence of thymoma. Hypoattenuating lesions of the liver statistically reflect hepatic hemangiomas. One of these lesions demonstrate characteristic peripheral puddling of contrast, the second does not clearly demonstrate specific pattern of enhancement. Ultrasound targeting these lesions may be useful for further characterization and confirmation of hemangioma. Moderate subsegmental atelectasis of the bilateral lungs. Satisfactory positioning of endotracheal tube and esophagogastric tube. Chest xray done 02/17/22 reported No significant pulmonary or pleural abnormality. No pneumothorax. Left rib series done on 02/18/22 reported he left ribs appear unremarkable. There is no visible left rib fracture. No acute pulmonary disease. Patient is on Po Prednisone, Albuterol inhaler, S/C Lovenox and famotidine. Objective Vital Signs - 12hr 03/04/22 04:28 Temperature 97.9 F Pulse Rate 53 L Respiratory 18 Rate Blood Pressure 125/78 O2 Sat by Pulse 100 Oximetry Constitutional: no acute distress, alert, other (young obese male without increased respiratory effort at rest) Eyes: non-icteric ENT: oropharynx moist Neck: supple, no lymphadenopathy, no JVD, other (large circumference) Effort: normal Ascultation: Bilateral: diminished breath sounds Percussion: Bilateral: not dull Cardiovascular: regular rate and rhythm Gastrointestinal: normoactive bowel sounds, soft, non-tender, non-distended (protuberant) Integumentary: normal Extremities: no cyanosis, no edema, pulses normal, no ischemia or petechiae Neurologic: non-focal exam (grossly), pupils equal and round, CN II-XII normal, other (weak (3-4/5)) Psychiatric: mood appropriate, affect normal CBC and BMP: 02/24/22 04:03 02/24/22 04:03 ABG, PT/INR, D-dimer: ABG ABG pH 7.333 pH Units (7.350-7.450) L 02/08/22 09:20 ABG pCO2 48.2 mm Hg 02/08/22 09:20 ABG pO2 114.7 mm Hg (80.0-90.0) H 02/08/22 09:20 ABG O2 Saturation 97.9 % (95.0-99.0) 02/08/22 09:20 Abnormal lab findings: Abnormal Labs 02/06/22 02/06/22 02/06/22 12:39 12:39 13:59 WBC RBC 5.75 H Hgb Hct MCV 74 L MCH 23 L MCHC 30 L RDW 16.9 H Lymph % (Auto) 6.4 L [place] % (Auto) Lymph # (Auto) 0.5 L [place] # (Auto) Seg Neutrophils % 89.3 H Seg Neutrophils # Fibrinogen ABG pH ABG pO2 ABG Hemoglobin 12.6 L Oxyhemoglobin Potassium 3.5 L Chloride 109.1 H Carbon Dioxide 20 L Creatinine 0.7 L Glucose 113 H Alkaline Phosphatase Total Protein Albumin 02/07/22 02/07/22 02/08/22 04:15 12:00 04:23 WBC RBC 5.10 H Hgb 11.5 L 11.0 L Hct MCV 72 L 74 L MCH 23 L 22 L MCHC 30 L RDW 17.3 H 17.1 H Lymph % (Auto) [place] % (Auto) 9.1 H Lymph # (Auto) [place] # (Auto) Seg Neutrophils % Seg Neutrophils # Fibrinogen ABG pH ABG pO2 72.6 L ABG Hemoglobin 12.2 L Oxyhemoglobin 94.4 L Potassium Chloride Carbon Dioxide Creatinine Glucose Alkaline Phosphatase Total Protein Albumin 02/08/22 02/08/22 02/09/22 04:23 09:20 04:50 WBC RBC Hgb 10.4 L Hct 33.7 L MCV 73 L MCH 22 L MCHC 31 L RDW 17.5 H Lymph % (Auto) [place] % (Auto) Lymph # (Auto) [place] # (Auto) Seg Neutrophils % Seg Neutrophils # Fibrinogen ABG pH 7.333 L ABG pO2 114.7 H ABG Hemoglobin 11.1 L Oxyhemoglobin Potassium Chloride 109.3 H Carbon Dioxide Creatinine 0.6 L Glucose Alkaline Phosphatase Total Protein Albumin 02/09/22 02/10/22 02/11/22 04:50 04:50 04:38 WBC 4.4 L 3.3 L RBC Hgb 10.1 L 10.4 L Hct 32.9 L 33.6 L MCV 73 L 73 L MCH 22 L 23 L MCHC 31 L 31 L RDW 17.2 H 17.0 H Lymph % (Auto) [place] % (Auto) Lymph # (Auto) [place] # (Auto) Seg Neutrophils % Seg Neutrophils # Fibrinogen ABG pH ABG pO2 ABG Hemoglobin Oxyhemoglobin Potassium Chloride Carbon Dioxide Creatinine Glucose 107 H Alkaline Phosphatase Total Protein Albumin 02/11/22 02/12/22 02/13/22 04:38 04:25 04:17 WBC 3.7 L 3.5 L RBC Hgb 10.5 L 10.8 L Hct 34.5 L MCV 73 L 73 L MCH 22 L 22 L MCHC 30 L 30 L RDW 16.9 H 17.5 H Lymph % (Auto) [place] % (Auto) Lymph # (Auto) [place] # (Auto) Seg Neutrophils % Seg Neutrophils # Fibrinogen ABG pH ABG pO2 ABG Hemoglobin Oxyhemoglobin Potassium Chloride Carbon Dioxide Creatinine 0.7 L Glucose 101 H Alkaline Phosphatase Total Protein Albumin 02/16/22 02/16/22 02/18/22 04:52 04:52 07:18 WBC RBC Hgb 11.4 L 11.4 L Hct 35.3 L MCV 71 L 72 L MCH 23 L 23 L MCHC RDW 17.4 H 17.3 H Lymph % (Auto) 43.5 H [place] % (Auto) 7.6 H 7.6 H Lymph # (Auto) [place] # (Auto) Seg Neutrophils % 71.5 H Seg Neutrophils # Fibrinogen ABG pH ABG pO2 ABG Hemoglobin Oxyhemoglobin Potassium Chloride Carbon Dioxide Creatinine 0.6 L Glucose Alkaline Phosphatase Total Protein Albumin 3.5 L 02/18/22 02/18/22 02/20/22 07:18 07:18 04:23 WBC RBC 5.22 H Hgb 11.6 L Hct MCV 73 L MCH 22 L MCHC 31 L RDW 18.0 H Lymph % (Auto) [place] % (Auto) Lymph # (Auto) [place] # (Auto) Seg Neutrophils % Seg Neutrophils # Fibrinogen 144 L* ABG pH ABG pO2 ABG Hemoglobin Oxyhemoglobin Potassium Chloride Carbon Dioxide Creatinine 0.5 L Glucose Alkaline Phosphatase Total Protein Albumin 02/20/22 02/20/22 02/21/22 04:23 04:23 09:50 WBC 13.1 H RBC 5.36 H Hgb Hct MCV 73 L MCH 22 L MCHC 31 L RDW 18.4 H Lymph % (Auto) [place] % (Auto) Lymph # (Auto) [place] # (Auto) 1.0 H Seg Neutrophils % Seg Neutrophils # 8.5 H Fibrinogen 89 L* ABG pH ABG pO2 ABG Hemoglobin Oxyhemoglobin Potassium Chloride Carbon Dioxide Creatinine 0.5 L Glucose 107 H Alkaline Phosphatase Total Protein Albumin 02/21/22 02/21/22 02/22/22 09:50 09:50 03:30 WBC 11.7 H RBC 5.16 H Hgb 11.4 L Hct MCV 73 L MCH 22 L MCHC 31 L RDW 18.5 H Lymph % (Auto) [place] % (Auto) Lymph # (Auto) [place] # (Auto) Seg Neutrophils % Seg Neutrophils # Fibrinogen 100 L* ABG pH ABG pO2 ABG Hemoglobin Oxyhemoglobin Potassium Chloride Carbon Dioxide Creatinine 0.7 L Glucose Alkaline Phosphatase Total Protein Albumin 02/22/22 02/22/22 02/23/22 03:30 10:11 04:08 WBC 11.4 H RBC Hgb 10.5 L Hct 33.9 L MCV 72 L MCH 22 L MCHC 31 L RDW 19.3 H Lymph % (Auto) [place] % (Auto) Lymph # (Auto) [place] # (Auto) Seg Neutrophils % Seg Neutrophils # Fibrinogen 114 L* ABG pH ABG pO2 ABG Hemoglobin Oxyhemoglobin Potassium Chloride Carbon Dioxide Creatinine 0.5 L Glucose Alkaline Phosphatase Total Protein 5.8 L Albumin 02/23/22 02/24/22 02/24/22 04:08 04:03 04:03 WBC RBC Hgb 10.3 L Hct 33.2 L MCV 72 L MCH 22 L MCHC 31 L RDW 19.0 H Lymph % (Auto) [place] % (Auto) Lymph # (Auto) [place] # (Auto) Seg Neutrophils % Seg Neutrophils # Fibrinogen 68 L* ABG pH ABG pO2 ABG Hemoglobin Oxyhemoglobin Potassium Chloride Carbon Dioxide Creatinine 0.5 L Glucose Alkaline Phosphatase 23 L Total Protein 5.2 L Albumin 02/24/22 04:03 WBC RBC Hgb Hct MCV MCH MCHC RDW Lymph % (Auto) [place] % (Auto) Lymph # (Auto) [place] # (Auto) Seg Neutrophils % Seg Neutrophils # Fibrinogen ABG pH ABG pO2 ABG Hemoglobin Oxyhemoglobin Potassium Chloride Carbon Dioxide Creatinine 0.5 L Glucose Alkaline Phosphatase Total Protein Albumin Allied health notes reviewed: nursing
[2022-03-04] MEDS: ENOXAPARIN 40 MG/0.4 ML INJ SUB-Q SCH (21:27)
[2022-03-04] MEDS: oxyCODONE /ACETAMINOPHEN 5-325MG TAB PO PRN (21:28)
[2022-03-05] MEDS: PYRIDOSTIGMINE BROMIDE 60 MG TAB PO SCH ×3 (05:01→18:10)
--- NOTE | 2022-03-05 07:58 | Progress Note ---
Assessment and Plan Assessment and plan: This is a 36-year-old male with known past medical history of obesity and myasthenia gravis admitted for myasthenia gravis crisis. 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 He was passing through [place] when symptoms started - S/p emergent intubation by anethesia - CT chest w con showed no evidence of thymoma - Neurology consulted, appreciated recommendations - Resumed home meds: Cellcept, Mestinon, and PO Prednisone - Completed X 5 days of IVIG - Plasma exchange initiated on 02/16, Received X2 treament. For a total of 5 exchanges to be completed over 9 days. - CCM also on consult, appreciated recommendations - Patient reported that his neurologist in [place] is Dr. Billie Delgado - Transfer to [facility] was declined, no available ICU beds at this time. They recommend continuing IVIG and possible plasma exchange -Plasmapheresis being done today and FFP's were ordered as fibrinogen is low #Acute Hypoxemic Respiratory Failure #Probable ANTON- On CPAP at home #Former Smoker - most likely related to MG crisis - S/p emergent intubation by anesthesia on 02/07 for airway protection - 02/09 s/p extubation - Stable on RA this am - CCM consulted, appreciate recommendations - Completed X5 days of IVIG - Continue plasma exchange and IS ordered - Continue Bipap at night - Aspiration precaution HOB above 30 - PRN O2 supplementation as needed - Continue SPO2 monitoring for SPO2 goal above 92% #Hepatic Hemangiomas - noted fro CT chest w/o con - Stable, LFTs within normal range - Outpatient follow up for US and further workups #Obesity - Balanced diet, increase physical activity discharge, outpatient pulmonary follow-up for sleep study, weight reduction. #GI/DVT Prophylaxis - PPI- Pepcid - Lovenox SubQ - SCD to bilateral lower extremities while in bed Hospital Course to Date: 02/07: S/p X1 dose of IV IG overnight, patient reported feeling much better and stronger this am, moving all extremities. Plan to wean off Bipap this am. Okay to start a diet if patient pass bedside swallow. D/W CCM plan for CT chest w con tomorrow to r/o thymoma. Neurology consulted. 02/08: S/p emergent intubation by anethesia yesterday. Now intubated and sedated, RASS -2. Neurology recommendations noted. Resumed home meds. Will wean off sedation this am for possible SAT/SBT. CT chest also noted with no evidence of thymoma. Continue IVIG. Attending received call back from [facility]. Transfer was declined, no available ICU beds at this time. They recommend continuing IVIG and possible plasma exchange. Awaiting on Neurology final recommendations. 02/09: S/p Extubation this am. Desated to 85% on 3L NC, SPO2 improved to 88% on 8L NC. This am CXR noted, worsen opacity of the left side. CCM at the bedside, X1 dose of IV Lasix ordered and place patient on Bipap. Low Threshold for reintubation. Plan of care and the high probability for reintubation was discussed with patient at the bedside. Patient verbalized understanding and agree with current care plan. Continue IVIG, Awaiting on Neurology final recommendations. 02/10: Tolerated Bipap, now on 2L NC this am, SPO2 at 100%. No s/s of any acute respiratory distress noted. This am CXR also noted with significant improvement. Continue IVIGm and Bipap at night. Incentive Spirometer also ordered. advance diet as tolerated. PT/OT/Speech consulted. 02/11: Completed x5days of IVIG overnight. Stable on RA, still complaining of generalized weakness, other stable. Diet advanced to solid this am, patient is tolerating it. Continue IS and Bipap at night. Encourage mobility as tolerated, PT/OT/Speech consult pending. 02/12: CPAP prn, currently on RA. Improved strength to BLE and BUE per patient. 02/13: Increased weakness reported on encounter. increased steroid dose to prednisone 40 mg po daily. Continue pyridostigmine and cellcept. Possible d/c tomorrow. 02/14: Weakness improved however still continues to have difficulty with stre ngth. Still has right eye lid droop. Patient increased to prednisone 60 mg po daily. He has had 4 myasthenia gravis crises in the past and was initiated on high dose steroids with exterminator helper taper by her OP neurologist. Pt recommended home with home health care PT. Ambulation is challenging as patient requires a rolling walker. 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 Patient is not a resident of [place]. States his home state is [place]. He has a sister in [place] who's address he uses for mailing purposes. Will work with CM to coordinate placement. 02/15: worsened strength. Admits to dysphagia and shortness of breath today. Given worsening symptmology transferring back to ICU for close monitoring. Plasma exchange ordered, first tx tomorrow, coordinated with Dr Katya Manley. Will place vascath today/tomorrow AM for exchanges. Steroid dose increased to Prednisone 80 mg po daily in interim. Will attempt to call neurologist tomorrow AM. 02/16: Plan for plasma exchange today. Labs reviewed, cbc/bmp/fibrinogen all unremarkable. Trialysis catheter placed, pt tolerated procedure well. Taryn Manley will be here today do 4L exchange. A total of 5 exchanges will be completed over 9 days. A total of 20 L 5% albumin will be needed, pharmacy was notified yesterday of this. Continue prednisone 80 mg po daily dose. 02/17: No overnight events. No acute complaints. Tolerated PLEX well. Continue steroids and will follow for symptom improvement. 02/18: Plex tx today. XR ordered due to severe rib pain, no rib fx ID. Will continue to follow for sx improvement. 02/19: Doing much better this am. OOB and sitting up in the chair this am, stable on RA. Still complaining of generalized but reported feeling better. Continue plasma exchange and PO prednisone, cellcept, and Mycophenolate. Continue PT/OT. 02/20: Patient seen and examined, clinically showing some improvement, will continue on current Prednisone Dose, patients fibrinogen is lower than 100, we do not have plasma inhouse, patient will undergo PLEX with Albumin and recieve Cyroprecipitated (Ordered) after per the [facility] team. Continue to monitor NIF Continue IMCU care in this critically ill patient. 02/21: Tolerated PLEX yesterday, Fibrinogen improved to 100. Patient has leukocytosis today without fever, no new neuro deficits reported today. Will request Neuro-revaluation. Case management continues to work on safe discharge plan. Plan discussed with the patient. Dispo based on evaluation by Neuro 02/22: Patient seen and examined today, awaiting 4/5 PLEX therapy, awaiting Neurology re-evaluation. Discussed with case management and patient about discharge plans. 02/23: Patient seen and examined, Neurology input noted: change mestinon from 180 mg po qday to 60 mg po tid; prednisone from 80 mg po qday to 40 mg po qday; continue cellcept (per home regimen); plex 4/5 ongoing at bedside today; pt/ot/st evaluation/monitoring; f/u established neurologist within 2 weeks post- discharge. Patient can be discharged after THE LAST PLEX TOMORROW. 02/24/2022 Patient receiving plasma exchange and FFP's 02/25/2022 Patient finished course of plasma exchanges and FFP's Patient to be tapered on prednisone from 80 mg Had extensive discussion with the patient Patient lives in [place] and is on Mestinon and prednisone Patient is willing to fly back to [place] and follow-up with his PCP Patient to be discharged on prednisone tapering dose 60 mg for 5 days 40 mg for 5 days 20 mg for 5 days and then continue at 10 mg 02/26/2022. Patient completed plasma exchange and FFP. Continue prednisone taper. Apparently, pulmonary wants to continue to monitor the patient for 24 hours. Anticipate discharge later today or in a.m. 02/27/2022: Discharge home today. rx for prednisone, mestinon, and cellcept provided. 02/28; d/c cancelled yesterday as patient was experiencing weakness. Feels as though he is "flaring" Mestonin increased to 120 mg q6hr. Monitor for anticholinergic side effects. Continue prednisone at high dose and continue cellcept at home dose 1000 mg po bid. Again this patient likely has suboptimal maintenance therapy...do not lower prednisone dose at this time . PT eval and continued exercises ordered. Unfortunately placement of this patient will be challenging as he lives out of his truck and insurance status will make his placement tough. 02/28: Continue med therapy for MG. PT recommend [facility] w/ rolling walker. will to continue to work with patient today. Extensive discussion with CM re: placement during rounds today. Will work towards safe discharge plan. 03/01: Discharge canceled. 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 D/w CM during rounds who will need to find alternative solution...this patient absolutely cannot return to semi-truck as it poses a danger not only to self but to others should he operate it. D/w BOX TRUCK DRIVER regarding difficult placement. 03/02: Patient doing well this morning. He states his weakness is gradually improving. Denies any anticholinergic effects of pyridostigmine dosing. Placement for the patient continues to be a challenge. Discussed with CM and re viewed note from Saturday. Patient has desire to go back to living in truck. He does not however have a "community"/adequate support system and the current lot that the truck is currently parked in does not have living quarters as previously believed to be the case. Previously when questioning the patient about his community, the patient stated that he does not really have any friends and is estranged from family who could potentially help look after them. He states that the lot that the truck is currently in has no attendants on weekends. Discharging the patient back to his truck would absolutely not be the safest option for this patient and could potentially pose a public hazard should the patient decide to operate his vehicle given his current condition. While the patient has expressed that he will not operate his vehicle, I would recommend that the patient be discharged in a personal snf/apartment/ or living situation with family/friend that does not involve living in his motor vehicle so he can continue with physical rehab therapy. I also recommend that he gets full clearance from an outpatient physician and/or neurologist prior to returning to operate his vehicle. I discussed this with the patient as well as potential concerns of him going back to the truck and he voiced understanding with this. All things considered, given the patient's improvement this weekend, we will continue to follow for improvement in his clinical condition to the point where he may potentially not need assistance. We will continue to work with case management for additional assistance in a safe discharge. 03/03: No acute complaints on encounter. Patient states that he feels like his weakness is improving. We will continue to follow for clinical improvement. 03/04: Dizziness on AM encounter. Awaiting final PT recommendations. Patient strength progressively improving. Again, current maintenance therapy has been optimal, I would not recommend changes to meds at this time. I recommend at the time of discharge that the patient be maintained on the current regimen with OP f/u with his [place] neurologist. Possible discharge early this week if recovery continues to progress to the point where patient is zero assist. Total Time Spent with Patient (Minutes): 45 History Interval history: Some dizziness reported by patient while he was showering but otherwise he is asymptomatic. States his weakness has nearly resolved. Strength improved. Hospitalist Physical - Physical exam Narrative exam: Narrative exam: General appearance: Present: no acute distress, well-nourished, obese - EENT Eyes: Present: PERRL ENT: dentition normal, hearing decreased, wears hearing aid - Neck Neck: Present: normal ROM - Respiratory Respiratory effort: normal Respiratory: bilateral: diminished - Cardiovascular Rhythm: regular Heart Sounds: Present: S1 & S2. Absent: systolic murmur, diastolic murmur - Extremities Extremities: no ischemia, pulses intact, pulses symmetrical, No edema, normal temperature, normal color Peripheral Pulses: within normal limits - Abdominal General gastrointestinal: soft, non-tender, non-distended, normal bowel sounds - Integumentary Integumentary: Present: warm, dry - Psychiatric Psychiatric: appropriate mood/affect, cooperative - Neurologic Neurologic: no focal deficits, moves all extremities, weakness improving. - Allied Health Allied health notes reviewed: nursing, RT, social work - Constitutional Vitals: Temp Pulse Resp BP Pulse Ox 98.7 F 48 L 18 110/71 99 03/05/22 03:51 03/05/22 03:51 03/05/22 03:51 03/05/22 03:51 03/05/22 03:51 General appearance: Present: no acute distress, well-nourished Results - Labs CBC & Chem 7: 02/24/22 04:03 02/24/22 04:03 Labs: Laboratory Last Values WBC 10.4 K/mm3 (4.5-11.0) 02/24/22 04:03 RBC 4.60 M/mm3 (3.65-5.03) 02/24/22 04:03 Hgb 10.3 gm/dl (11.8-15.2) L 02/24/22 04:03 Hct 33.2 % (35.5-45.6) L 02/24/22 04:03 MCV 72 fl (84-94) L 02/24/22 04:03 MCH 22 pg (28-32) L 02/24/22 04:03 MCHC 31 % (32-34) L 02/24/22 04:03 RDW 19.0 % (13.2-15.2) H 02/24/22 04:03 Plt Count 235 K/mm3 (140-440) 02/24/22 04:03 Lymph % (Auto) 27.4 % (13.4-35.0) 02/21/22 09:50 [place] % (Auto) 7.3 % (0.0-7.3) 02/21/22 09:50 Eos % (Auto) 0.1 % (0.0-4.3) 02/21/22 09:50 Baso % (Auto) 0.2 % (0.0-1.8) 02/21/22 09:50 Lymph # (Auto) 3.6 K/mm3 (1.2-5.4) 02/21/22 09:50 [place] # (Auto) 1.0 K/mm3 (0.0-0.8) H 02/21/22 09:50 Eos # (Auto) 0.0 K/mm3 (0.0-0.4) 02/21/22 09:50 Baso # (Auto) 0.0 K/mm3 (0.0-0.1) 02/21/22 09:50 Seg Neutrophils % 65.0 % (40.0-70.0) 02/21/22 09:50 Seg Neutrophils # 8.5 K/mm3 (1.8-7.7) H 02/21/22 09:50 Fibrinogen 68 mg/dl (211-480) L* 02/24/22 04:03 ABG pH 7.333 pH Units (7.350-7.450) L 02/08/22 09:20 ABG pCO2 48.2 mm Hg 02/08/22 09:20 ABG pO2 114.7 mm Hg (80.0-90.0) H 02/08/22 09:20 ABG HCO3 25.0 mmol/L (20.0-26.0) 02/08/22 09:20 ABG O2 Saturation 97.9 % (95.0-99.0) 02/08/22 09:20 ABG O2 Content 15.1 (0.0-44) 02/08/22 09:20 ABG Base Excess -1.1 mmol/L (-2.0-3.0) 02/08/22 09:20 ABG Hemoglobin 11.1 gm/dl (14.0-18.0) L 02/08/22 09:20 ABG Carboxyhemoglobin 1.4 % (0.0-5.0) 02/08/22 09:20 ABG Methemoglobin 0.5 % (0.0-1.5) 02/08/22 09:20 Oxyhemoglobin 96.1 % (95.0-99.0) 02/08/22 09:20 FiO2 35 % 02/08/22 09:20 Sodium 141 mmol/L (137-145) 02/24/22 04:03 Potassium 3.8 mmol/L (3.6-5.0) 02/24/22 04:03 Chloride 106.2 mmol/L (98-107) 02/24/22 04:03 Carbon Dioxide 27 mmol/L (22-30) 02/24/22 04:03 Anion Gap 12 mmol/L 02/24/22 04:03 BUN 10 mg/dL (9-20) 02/24/22 04:03 Creatinine 0.5 mg/dL (0.8-1.3) L 02/24/22 04:03 Estimated GFR > 60 ml/min 02/24/22 04:03 BUN/Creatinine Ratio 20 % 02/24/22 04:03 Glucose 81 mg/dL (75-100) 02/24/22 04:03 POC Glucose 96 mg/dL (70-105) 03/03/22 11:32 Calcium 8.8 mg/dL (8.4-10.2) 02/24/22 04:03 Total Bilirubin 0.30 mg/dL (0.1-1.2) 02/23/22 04:08 AST 9 units/L (5-40) 02/23/22 04:08 ALT 11 units/L (7-56) 02/23/22 04:08 Alkaline Phosphatase 23 units/L (35-129) L 02/23/22 04:08 Total Protein 5.2 g/dL (6.3-8.2) L 02/23/22 04:08 Albumin 4.8 g/dL (3.9-5) 02/23/22 04:08 Albumin/Globulin Ratio 12.0 % 02/23/22 04:08 Actin IgG Antibody <20 U (<20) 02/16/22 04:52 Blood Type O POSITIVE 02/24/22 11:33 Antibody Screen Negative 02/24/22 11:33 [place]/IV: Voiding Method Urinal Active Medications - Current Medications Current Medications: Generic Name Dose Route Start Last Admin Trade Name Freq PRN Reason Stop Dose Admin Acetaminophen 650 mg 02/06/22 15:00 03/04/22 10:15 Acetaminophen 325 Mg Tab PO 650 mg Q6H PRN Administration Pain MILD(1-3)/Fever >100.5/[place] Albuterol 2.5 mg 02/06/22 15:00 02/15/22 21:54 Albuterol 2.5 Mg/3 Ml Nebu IH 2.5 mg Q3HRT PRN Administration Shortness Of Breath Diphenhydramine HCl 25 mg 02/15/22 14:06 02/16/22 11:49 Diphenhydramine 50 Mg/Ml Vial IV 25 mg Q6H PRN Administration Itching Enoxaparin Sodium 40 mg 02/06/22 22:00 03/04/22 21:27 Enoxaparin 40 Mg/0.4 Ml Inj SUB-Q 40 mg QDAY@2200 NESTOR Administration Protocol Famotidine 20 mg 02/12/22 10:00 03/04/22 21:27 Famotidine 20 Mg Tab PO 20 mg BID NESTOR Administration Hydrophilic Ointment 1 applic 02/07/22 10:55 Lip Therapy Vaseline TP Q2HR PRN Dry Lips Melatonin 5 mg 02/21/22 01:15 02/27/22 23:33 Melatonin 5 Mg Tab PO 5 mg QHS PRN Administration Sleep Multi-Ingred Cream/Lotion/Oil/Oint 1 applic 02/07/22 10:55 Mineral Oil/Petrolatum, White Ophth Oint 3.5 Gm OU Q4HR PRN Dry Eye(s) Mycophenolate Mofetil 1,000 mg 02/21/22 10:00 03/04/22 21:28 Mycophenolate 500 Mg Tab PO 1,000 mg BID NESTOR Administration Ondansetron HCl 4 mg 02/08/22 17:00 02/20/22 23:58 Ondansetron 4 Mg/2 Ml Inj IV 4 mg Q8H PRN Administration Nausea And Vomiting Oxycodone/Acetaminophen 1 tab 02/06/22 15:00 03/04/22 21:28 Oxycodone /Acetaminophen 5-325mg Tab PO 1 tab Q16H PRN Administration Pain, Moderate (4-6) Prednisone 60 mg 02/28/22 10:00 03/04/22 10:11 Prednisone 20 Mg Tab PO 60 mg QDAY NESTOR Administration Pyridostigmine [place] 120 mg 02/27/22 19:00 03/05/22 05:01 Pyridostigmine [place] 60 Mg Tab PO 120 mg Q6HR NESTOR Administration Senna/Docusate Sodium 1 tab 02/12/22 10:00 03/04/22 21:27 Sennosides/Docusate Sodium 8.6/50 Mg Tab PO 1 tab BID NESTOR Administration Sodium Chloride 10 ml 02/06/22 22:00 03/04/22 21:29 Sodium Chloride 0.9% 10 Ml Flush Syringe IV 10 ml BID NESTOR Administration Sodium Chloride 10 ml 02/06/22 13:59 Sodium Chloride 0.9% 10 Ml Flush Syringe IV PRN PRN LINE FLUSH Nutrition/Malnutrition Assess - Dietary Evaluation Nutrition/Malnutrition Findings: Nutrition Notes Start: 02/07/22 13:09 Freq: Status: Active Protocol: Document 02/27/22 14:07 PRADEEP (Rec: 02/27/22 14:34 PRADEEP [id number]) Nutrition Notes Initial or Follow up Reassessment Current Diagnosis Respiratory Failure Other Pertinent Diagnosis Myasthenia Gravis, ANTON, Hepatic Hemangiomas. Current Diet Regular Diet (since L 02/19). Labs/Tests 02/27: Crea 0.5. Pertinent Medications 02/27: Nutritionally unremarkable. Height 5 ft 10 in Weight 102 kg [place] Body Weight (kg) 75.45 BMI 32.2 Weight change and time frame No body weight change reported in 1 week. Weight Status Obese Subjective/Other Information RD consult for routine F/U on dietary advancement. No further reports available on Pt's PO intake of meals, will assess at F/U if possible . Pt is on Room Air, O2 saturation @ 96%, according to Physical Assessment History notes. Pt finished plasma exchange tratment and is cleared for discharge home with family, according to Progress notes. Percent of energy/protein needs met: Prescribed Regular Diet provides for energy/protein needs (2,289 Kcal/89 g) during LOS. Burn Absent Trauma Absent GI Symptoms None Food Allergy No Skin Integrity/Comment Assessment WNL. 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 No Is Patient Ambulatory and/or Out of Bed No REE-(Collin-St. Jeor-confined to bed) 2349.732 Kcal/Kg value to use for calculation 20 Approximate Energy Requirements Using 2040 kcal/Kg Calculation Used for Recommendations Kcal/kg Additional Notes Protein: 0.8-1 g/Kg AdjBW; 71- 89 g/day. Fluids: 1 ml/Kcal, or as per MD. Nutrition Intervention Change Diet Order: Contrinue Regular Diet. Follow-Up By: 03/06/22 Additional Comments Continue monitoring food tolerance, %PO intake of meals , and BM.
--- NOTE | 2022-03-05 09:33 | Progress Note ---
Assessment and Plan Myasthenic crisis, s/p MVS Obesity Possible ANTON / OHS Blurry vision Mild hypokalemia-resolved Mild metabolic acidosis-resolved Slow steroid taper Discontinue RIJ HD catheter PT/OT, continue Discharge planning -Continue immunosuppresants- prednisone , pyridostigmine and cellcept. -continue to avoid aminoglycosides, flouroquinolones -continue to keep potassium at 4, Mag at 2 and Phos at >2.5 - continue to titrate supplemental oxygen to keep SpO2 90-92% - CPAP qhs and prn - continue bronchodilators with pulmonary hygiene per RT - continue accuchecks with glycemic control per SSI (While critically ill target blood glucose of 140-180 mg/dL; avoid hypoglycemia) - avoid nephrotoxins, renally dose all medications - continue to avoid benzodiazepines, reduce the possibility of delirium - prn analgesia per CPOT score - Maintenance of sleep-wake cycle, avoid delirium - VTE prophylaxis- Heparin - continue other care per attending / other consultants CONDITION: FAIR PROGNOSIS: FAIR CODE STATUS: FULL CODE Subjective Date of service: 03/05/22 Principal diagnosis: Myasthenic crisis; Obesity; Possible ANTON/OHS; Blurry vision; Hypokalemia Interval history: Patient is seen today for: Myasthenic crisis; Obesity; Possible ANTON / OHS; Blurry vision; Mild hypokalemia; Mild metabolic acidosis Seen and examined at bedside; 24hour events reviewed; nursing and respiratory care staff consulted; no adverse overnight events reported to me; resting in bed; denies N/V/F/C; awake and alert, feels great. Resting in bed, compliant with CPAP at night Objective Vital Signs - 12hr 03/04/22 03/05/22 22:00 03:51 Temperature 98.7 F Pulse Rate 48 L Respiratory 20 18 Rate Blood Pressure 110/71 O2 Sat by Pulse 98 99 Oximetry Constitutional: no acute distress, alert, other (young obese male without increased respiratory effort at rest) Eyes: non-icteric, other (RIJ HD catheter) ENT: oropharynx moist Neck: supple, no lymphadenopathy, no JVD, other (large circumference) Effort: normal Ascultation: Bilateral: clear, diminished breath sounds Percussion: Bilateral: not dull Cardiovascular: regular rate and rhythm Gastrointestinal: normoactive bowel sounds, soft, non-tender, non-distended (protuberant) Integumentary: normal Extremities: no cyanosis, no edema, pulses normal, no ischemia or petechiae Neurologic: non-focal exam (grossly), pupils equal and round, CN II-XII normal, other (weak (3-4/5)) Psychiatric: mood appropriate, affect normal CBC and BMP: 02/24/22 04:03 02/24/22 04:03 ABG, PT/INR, D-dimer: ABG ABG pH 7.333 pH Units (7.350-7.450) L 02/08/22 09:20 ABG pCO2 48.2 mm Hg 02/08/22 09:20 ABG pO2 114.7 mm Hg (80.0-90.0) H 02/08/22 09:20 ABG O2 Saturation 97.9 % (95.0-99.0) 02/08/22 09:20 Abnormal lab findings: Abnormal Labs 02/06/22 02/06/22 02/06/22 12:39 12:39 13:59 WBC RBC 5.75 H Hgb Hct MCV 74 L MCH 23 L MCHC 30 L RDW 16.9 H Lymph % (Auto) 6.4 L [place] % (Auto) Lymph # (Auto) 0.5 L [place] # (Auto) Seg Neutrophils % 89.3 H Seg Neutrophils # Fibrinogen ABG pH ABG pO2 ABG Hemoglobin 12.6 L Oxyhemoglobin Potassium 3.5 L Chloride 109.1 H Carbon Dioxide 20 L Creatinine 0.7 L Glucose 113 H Alkaline Phosphatase Total Protein Albumin 02/07/22 02/07/22 02/08/22 04:15 12:00 04:23 WBC RBC 5.10 H Hgb 11.5 L 11.0 L Hct MCV 72 L 74 L MCH 23 L 22 L MCHC 30 L RDW 17.3 H 17.1 H Lymph % (Auto) [place] % (Auto) 9.1 H Lymph # (Auto) [place] # (Auto) Seg Neutrophils % Seg Neutrophils # Fibrinogen ABG pH ABG pO2 72.6 L ABG Hemoglobin 12.2 L Oxyhemoglobin 94.4 L Potassium Chloride Carbon Dioxide Creatinine Glucose Alkaline Phosphatase Total Protein Albumin 02/08/22 02/08/22 02/09/22 04:23 09:20 04:50 WBC RBC Hgb 10.4 L Hct 33.7 L MCV 73 L MCH 22 L MCHC 31 L RDW 17.5 H Lymph % (Auto) [place] % (Auto) Lymph # (Auto) [place] # (Auto) Seg Neutrophils % Seg Neutrophils # Fibrinogen ABG pH 7.333 L ABG pO2 114.7 H ABG Hemoglobin 11.1 L Oxyhemoglobin Potassium Chloride 109.3 H Carbon Dioxide Creatinine 0.6 L Glucose Alkaline Phosphatase Total Protein Albumin 02/09/22 02/10/22 02/11/22 04:50 04:50 04:38 WBC 4.4 L 3.3 L RBC Hgb 10.1 L 10.4 L Hct 32.9 L 33.6 L MCV 73 L 73 L MCH 22 L 23 L MCHC 31 L 31 L RDW 17.2 H 17.0 H Lymph % (Auto) [place] % (Auto) Lymph # (Auto) [place] # (Auto) Seg Neutrophils % Seg Neutrophils # Fibrinogen ABG pH ABG pO2 ABG Hemoglobin Oxyhemoglobin Potassium Chloride Carbon Dioxide Creatinine Glucose 107 H Alkaline Phosphatase Total Protein Albumin 02/11/22 02/12/22 02/13/22 04:38 04:25 04:17 WBC 3.7 L 3.5 L RBC Hgb 10.5 L 10.8 L Hct 34.5 L MCV 73 L 73 L MCH 22 L 22 L MCHC 30 L 30 L RDW 16.9 H 17.5 H Lymph % (Auto) [place] % (Auto) Lymph # (Auto) [place] # (Auto) Seg Neutrophils % Seg Neutrophils # Fibrinogen ABG pH ABG pO2 ABG Hemoglobin Oxyhemoglobin Potassium Chloride Carbon Dioxide Creatinine 0.7 L Glucose 101 H Alkaline Phosphatase Total Protein Albumin 02/16/22 02/16/22 02/18/22 04:52 04:52 07:18 WBC RBC Hgb 11.4 L 11.4 L Hct 35.3 L MCV 71 L 72 L MCH 23 L 23 L MCHC RDW 17.4 H 17.3 H Lymph % (Auto) 43.5 H [place] % (Auto) 7.6 H 7.6 H Lymph # (Auto) [place] # (Auto) Seg Neutrophils % 71.5 H Seg Neutrophils # Fibrinogen ABG pH ABG pO2 ABG Hemoglobin Oxyhemoglobin Potassium Chloride Carbon Dioxide Creatinine 0.6 L Glucose Alkaline Phosphatase Total Protein Albumin 3.5 L 02/18/22 02/18/22 02/20/22 07:18 07:18 04:23 WBC RBC 5.22 H Hgb 11.6 L Hct MCV 73 L MCH 22 L MCHC 31 L RDW 18.0 H Lymph % (Auto) [place] % (Auto) Lymph # (Auto) [place] # (Auto) Seg Neutrophils % Seg Neutrophils # Fibrinogen 144 L* ABG pH ABG pO2 ABG Hemoglobin Oxyhemoglobin Potassium Chloride Carbon Dioxide Creatinine 0.5 L Glucose Alkaline Phosphatase Total Protein Albumin 02/20/22 02/20/22 02/21/22 04:23 04:23 09:50 WBC 13.1 H RBC 5.36 H Hgb Hct MCV 73 L MCH 22 L MCHC 31 L RDW 18.4 H Lymph % (Auto) [place] % (Auto) Lymph # (Auto) [place] # (Auto) 1.0 H Seg Neutrophils % Seg Neutrophils # 8.5 H Fibrinogen 89 L* ABG pH ABG pO2 ABG Hemoglobin Oxyhemoglobin Potassium Chloride Carbon Dioxide Creatinine 0.5 L Glucose 107 H Alkaline Phosphatase Total Protein Albumin 02/21/22 02/21/22 02/22/22 09:50 09:50 03:30 WBC 11.7 H RBC 5.16 H Hgb 11.4 L Hct MCV 73 L MCH 22 L MCHC 31 L RDW 18.5 H Lymph % (Auto) [place] % (Auto) Lymph # (Auto) [place] # (Auto) Seg Neutrophils % Seg Neutrophils # Fibrinogen 100 L* ABG pH ABG pO2 ABG Hemoglobin Oxyhemoglobin Potassium Chloride Carbon Dioxide Creatinine 0.7 L Glucose Alkaline Phosphatase Total Protein Albumin 02/22/22 02/22/22 02/23/22 03:30 10:11 04:08 WBC 11.4 H RBC Hgb 10.5 L Hct 33.9 L MCV 72 L MCH 22 L MCHC 31 L RDW 19.3 H Lymph % (Auto) [place] % (Auto) Lymph # (Auto) [place] # (Auto) Seg Neutrophils % Seg Neutrophils # Fibrinogen 114 L* ABG pH ABG pO2 ABG Hemoglobin Oxyhemoglobin Potassium Chloride Carbon Dioxide Creatinine 0.5 L Glucose Alkaline Phosphatase Total Protein 5.8 L Albumin 02/23/22 02/24/22 02/24/22 04:08 04:03 04:03 WBC RBC Hgb 10.3 L Hct 33.2 L MCV 72 L MCH 22 L MCHC 31 L RDW 19.0 H Lymph % (Auto) [place] % (Auto) Lymph # (Auto) [place] # (Auto) Seg Neutrophils % Seg Neutrophils # Fibrinogen 68 L* ABG pH ABG pO2 ABG Hemoglobin Oxyhemoglobin Potassium Chloride Carbon Dioxide Creatinine 0.5 L Glucose Alkaline Phosphatase 23 L Total Protein 5.2 L Albumin 02/24/22 04:03 WBC RBC Hgb Hct MCV MCH MCHC RDW Lymph % (Auto) [place] % (Auto) Lymph # (Auto) [place] # (Auto) Seg Neutrophils % Seg Neutrophils # Fibrinogen ABG pH ABG pO2 ABG Hemoglobin Oxyhemoglobin Potassium Chloride Carbon Dioxide Creatinine 0.5 L Glucose Alkaline Phosphatase Total Protein Albumin Allied health notes reviewed: nursing
[2022-03-05] MEDS: predniSONE 20 MG TAB PO SCH (11:18)
[2022-03-05] MEDS: MYCOPHENOLATE 500 MG TAB PO SCH ×2 (11:19→21:57)
[2022-03-05] MEDS: FAMOTIDINE 20 MG TAB PO SCH ×2 (11:19→21:57)
[2022-03-05] MEDS: SENNOSIDES/DOCUSATE SODIUM 8.6/50 MG TAB PO SCH ×2 (11:20→21:57)
[2022-03-05] MEDS: ENOXAPARIN 40 MG/0.4 ML INJ SUB-Q SCH (21:57)
[2022-03-06] MEDS: PYRIDOSTIGMINE BROMIDE 60 MG TAB PO SCH ×5 (00:10→23:51)
[2022-03-06] MEDS: oxyCODONE /ACETAMINOPHEN 5-325MG TAB PO PRN ×2 (00:12→18:59)
--- NOTE | 2022-03-06 09:54 | Progress Note ---
Assessment and Plan Assessment and plan: This is a 36-year-old male with known past medical history of obesity and myasthenia gravis admitted for myasthenia gravis crisis. 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 He was passing through [place] when symptoms started - S/p emergent intubation by anethesia - CT chest w con showed no evidence of thymoma - Neurology consulted, appreciated recommendations - Resumed home meds: Cellcept, Mestinon, and PO Prednisone - Completed X 5 days of IVIG - Plasma exchange initiated on 02/16, Received X2 treament. For a total of 5 exchanges to be completed over 9 days. - CCM also on consult, appreciated recommendations - Patient reported that his neurologist in [place] is Dr. Billie Delgado - Transfer to [facility] was declined, no available ICU beds at this time. They recommend continuing IVIG and possible plasma exchange -Plasmapheresis being done today and FFP's were ordered as fibrinogen is low #Acute Hypoxemic Respiratory Failure #Probable ANTON- On CPAP at home #Former Smoker - most likely related to MG crisis - S/p emergent intubation by anesthesia on 02/07 for airway protection - 02/09 s/p extubation - Stable on RA this am - CCM consulted, appreciate recommendations - Completed X5 days of IVIG - Continue plasma exchange and IS ordered - Continue Bipap at night - Aspiration precaution HOB above 30 - PRN O2 supplementation as needed - Continue SPO2 monitoring for SPO2 goal above 92% #Hepatic Hemangiomas - noted fro CT chest w/o con - Stable, LFTs within normal range - Outpatient follow up for US and further workups #Obesity - Balanced diet, increase physical activity discharge, outpatient pulmonary follow-up for sleep study, weight reduction. #GI/DVT Prophylaxis - PPI- Pepcid - Lovenox SubQ - SCD to bilateral lower extremities while in bed Hospital Course to Date: 02/07: S/p X1 dose of IV IG overnight, patient reported feeling much better and stronger this am, moving all extremities. Plan to wean off Bipap this am. Okay to start a diet if patient pass bedside swallow. D/W CCM plan for CT chest w con tomorrow to r/o thymoma. Neurology consulted. 02/08: S/p emergent intubation by anethesia yesterday. Now intubated and sedated, RASS -2. Neurology recommendations noted. Resumed home meds. Will wean off sedation this am for possible SAT/SBT. CT chest also noted with no evidence of thymoma. Continue IVIG. Attending received call back from [facility]. Transfer was d eclined, no available ICU beds at this time. They recommend continuing IVIG and possible plasma exchange. Awaiting on Neurology final recommendations. 02/09: S/p Extubation this am. Desated to 85% on 3L NC, SPO2 improved to 88% on 8L NC. This am CXR noted, worsen opacity of the left side. CCM at the bedside, X1 dose of IV Lasix ordered and place patient on Bipap. Low Threshold for reintubation. Plan of care and the high probability for reintubation was discussed with patient at the bedside. Patient verbalized understanding and agree with current care plan. Continue IVIG, Awaiting on Neurology final recommendations. 02/10: Tolerated Bipap, now on 2L NC this am, SPO2 at 100%. No s/s of any acute respiratory distress noted. This am CXR also noted with significant improvement. Continue IVIGm and Bipap at night. Incentive Spirometer also ordered. advance diet as tolerated. PT/OT/Speech consulted. 02/11: Completed x5days of IVIG overnight. Stable on RA, still complaining of generalized weakness, other stable. Diet advanced to solid this am, patient is tolerating it. Continue IS and Bipap at night. Encourage mobility as tolerated, PT/OT/Speech consult pending. 02/12: CPAP prn, currently on RA. Improved strength to BLE and BUE per patient. 02/13: Increased weakness reported on encounter. increased steroid dose to prednisone 40 mg po daily. Continue pyridostigmine and cellcept. Possible d/c tomorrow. 02/14: Weakness improved however still continues to have difficulty with stren gth. Still has right eye lid droop. Patient increased to prednisone 60 mg po daily. He has had 4 myasthenia gravis crises in the past and was initiated on high dose steroids with snf taper by her OP neurologist. Pt recommended home with home health care PT. Ambulation is challenging as patient requires a rolling walker. 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 Patient is not a resident of [place]. States his home state is [place]. He has a sister in [place] who's address he uses for mailing purposes. Will work with CM to coordinate placement. 02/15: worsened strength. Admits to dysphagia and shortness of breath today. Given worsening symptmology transferring back to ICU for close monitoring. Plasma exchange ordered, first tx tomorrow, coordinated with Dr Katya Centeno Caspian. Will place vascath today/tomorrow AM for exchanges. Steroid dose increased to Prednisone 80 mg po daily in interim. Will attempt to call neurologist tomorrow AM. 02/16: Plan for plasma exchange today. Labs reviewed, cbc/bmp/fibrinogen all unremarkable. Trialysis catheter placed, pt tolerated procedure well. Taryn Manley will be here today do 4L exchange. A total of 5 exchanges will be completed over 9 days. A total of 20 L 5% albumin will be needed, pharmacy was notified yesterday of this. Continue prednisone 80 mg po daily dose. 02/17: No overnight events. No acute complaints. Tolerated PLEX well. Continue steroids and will follow for symptom improvement. 02/18: Plex tx today. XR ordered due to severe rib pain, no rib fx ID. Will continue to follow for sx improvement. 02/19: Doing much better this am. OOB and sitting up in the chair this am, stable on RA. Still complaining of generalized but reported feeling better. Continue plasma exchange and PO prednisone, cellcept, and Mycophenolate. Continue PT/OT. 02/20: Patient seen and examined, clinically showing some improvement, will continue on current Prednisone Dose, patients fibrinogen is lower than 100, we do not have plasma inhouse, patient will undergo PLEX with Albumin and recieve Cyroprecipitated (Ordered) after per the [facility] team. Continue to monitor NIF Continue IMCU care in this critically ill patient. 02/21: Tolerated PLEX yesterday, Fibrinogen improved to 100. Patient has leukocytosis today without fever, no new neuro deficits reported today. Will request Neuro-revaluation. Case management continues to work on safe discharge plan. Plan discussed with the patient. Dispo based on evaluation by Neuro 02/22: Patient seen and examined today, awaiting 4/5 PLEX therapy, awaiting Neurology re-evaluation. Discussed with case management and patient about discharge plans. 02/23: Patient seen and examined, Neurology input noted: change mestinon from 180 mg po qday to 60 mg po tid; prednisone from 80 mg po qday to 40 mg po qday; continue cellcept (per home regimen); plex 4/5 ongoing at bedside today; pt/ot/st evaluation/monitoring; f/u established neurologist within 2 weeks post- discharge. Patient can be discharged after THE LAST PLEX TOMORROW. 02/24/2022 Patient receiving plasma exchange and FFP's 02/25/2022 Patient finished course of plasma exchanges and FFP's Patient to be tapered on prednisone from 80 mg Had extensive discussion with the patient Patient lives in [place] and is on Mestinon and prednisone Patient is willing to fly back to [place] and follow-up with his PCP Patient to be discharged on prednisone tapering dose 60 mg for 5 days 40 mg for 5 days 20 mg for 5 days and then continue at 10 mg 02/26/2022. Patient completed plasma exchange and FFP. Continue prednisone taper. Apparently, pulmonary wants to continue to monitor the patient for 24 hours. Anticipate discharge later today or in a.m. 02/27/2022: Discharge home today. rx for prednisone, mestinon, and cellcept provided. 02/28; d/c cancelled yesterday as patient was experiencing weakness. Feels as though he is "flaring" Mestonin increased to 120 mg q6hr. Monitor for anticholinergic side effects. Continue prednisone at high dose and continue cellcept at home dose 1000 mg po bid. Again this patient likely has suboptimal maintenance therapy...do not lower prednisone dose at this time . PT eval and continued exercises ordered. Unfortunately placement of this patient will be challenging as he lives out of his truck and insurance status will make his placement tough. 02/28: Continue med therapy for MG. PT recommend [facility] w/ rolling walker. will to continue to work with patient today. Extensive discussion with CM re: placement during rounds today. Will work towards safe discharge plan. 03/01: Discharge canceled. 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 D/w CM during rounds who will need to find alternative solution...this patient absolutely cannot return to semi-truck as it poses a danger not only to self but to others should he operate it. D/w PATHOLOGY TECH regarding difficult placement. 03/02: Patient doing well this morning. He states his weakness is gradually improving. Denies any anticholinergic effects of pyridostigmine dosing. Placement for the patient continues to be a challenge. Discussed with CM and reviewed note from Saturday. Patient has desire to go back to living in truck. He does not however have a "community"/adequate support system and the current lot that the truck is currently parked in does not have living quarters as previously believed to be the case. Previously when questioning the patient about his community, the patient stated that he does not really have any friends and is estranged from family who could potentially help look after them. He states that the lot that the truck is currently in has no attendants on weekends. Discharging the patient back to his truck would absolutely not be the safest option for this patient and could potentially pose a public hazard should the patient decide to operate his vehicle given his current condition. While the patient has expressed that he will not operate his vehicle, I would recommend that the patient be discharged in a personal snf/apartment/ or living situation with family/friend that does not involve living in his motor vehicle so he can continue with physical rehab therapy. I also recommend that he gets full clearance from an outpatient physician and/or neurologist prior to returning to operate his vehicle. I discussed this with the patient as well as potential concerns of him going back to the truck and he voiced understanding with this. All things considered, given the patient's improvement this weekend, we will continue to follow for improvement in his clinical condition to the point where he may potentially not need assistance. We will continue to work with case management for additional assistance in a safe discharge. 03/03: No acute complaints on encounter. Patient states that he feels like his weakness is improving. We will continue to follow for clinical improvement. 03/04: Dizziness on AM encounter. Awaiting final PT recommendations. Patient strength progressively improving. Again, current maintenance therapy has been optimal, I would not recommend changes to meds at this time. I recommend at the time of discharge that the patient be maintained on the current regimen with OP f/u with his [place] neurologist. Possible discharge early this week if recovery continues to progress to the point where patient is zero assist. 03/05: Patient still reporting dizziness with minimal activity. We will check orthostatic vital signs. Consider fluid bolus as needed History Interval history: No new issues overnight Hospitalist Physical - Constitutional Vitals: Temp Pulse Resp BP Pulse Ox 98.9 F 49 L 18 116/66 100 03/05/22 21:56 03/06/22 06:00 03/06/22 05:59 03/06/22 05:59 03/06/22 06:00 General appearance: Present: no acute distress, well-nourished - EENT Eyes: Present: PERRL, EOM intact ENT: hearing intact, clear oral mucosa, dentition normal - Neck Neck: Present: supple, normal ROM - Respiratory Respiratory effort: normal Respiratory: bilateral: CTA - Cardiovascular Rhythm: regular Heart Sounds: Present: S1 & S2. Absent: gallop, rub - Extremities Extremities: no ischemia, No edema, Full ROM - Abdominal General gastrointestinal: soft, non-tender, non-distended, normal bowel sounds - Integumentary Integumentary: Present: clear, warm, dry - Neurologic Neurologic: CNII-XII intact, moves all extremities Results - Labs CBC & Chem 7: 02/24/22 04:03 02/24/22 04:03 Labs: Laboratory Last Values WBC 10.4 K/mm3 (4.5-11.0) 02/24/22 04:03 RBC 4.60 M/mm3 (3.65-5.03) 02/24/22 04:03 Hgb 10.3 gm/dl (11.8-15.2) L 02/24/22 04:03 Hct 33.2 % (35.5-45.6) L 02/24/22 04:03 MCV 72 fl (84-94) L 02/24/22 04:03 MCH 22 pg (28-32) L 02/24/22 04:03 MCHC 31 % (32-34) L 02/24/22 04:03 RDW 19.0 % (13.2-15.2) H 02/24/22 04:03 Plt Count 235 K/mm3 (140-440) 02/24/22 04:03 Lymph % (Auto) 27.4 % (13.4-35.0) 02/21/22 09:50 Bates % (Auto) 7.3 % (0.0-7.3) 02/21/22 09:50 Eos % (Auto) 0.1 % (0.0-4.3) 02/21/22 09:50 Baso % (Auto) 0.2 % (0.0-1.8) 02/21/22 09:50 Lymph # (Auto) 3.6 K/mm3 (1.2-5.4) 02/21/22 09:50 Bates # (Auto) 1.0 K/mm3 (0.0-0.8) H 02/21/22 09:50 Eos # (Auto) 0.0 K/mm3 (0.0-0.4) 02/21/22 09:50 Baso # (Auto) 0.0 K/mm3 (0.0-0.1) 02/21/22 09:50 Seg Neutrophils % 65.0 % (40.0-70.0) 02/21/22 09:50 Seg Neutrophils # 8.5 K/mm3 (1.8-7.7) H 02/21/22 09:50 Fibrinogen 68 mg/dl (211-480) L* 02/24/22 04:03 ABG pH 7.333 pH Units (7.350-7.450) L 02/08/22 09:20 ABG pCO2 48.2 mm Hg 02/08/22 09:20 ABG pO2 114.7 mm Hg (80.0-90.0) H 02/08/22 09:20 ABG HCO3 25.0 mmol/L (20.0-26.0) 02/08/22 09:20 ABG O2 Saturation 97.9 % (95.0-99.0) 02/08/22 09:20 ABG O2 Content 15.1 (0.0-44) 02/08/22 09:20 ABG Base Excess -1.1 mmol/L (-2.0-3.0) 02/08/22 09:20 ABG Hemoglobin 11.1 gm/dl (14.0-18.0) L 02/08/22 09:20 ABG Carboxyhemoglobin 1.4 % (0.0-5.0) 02/08/22 09:20 ABG Methemoglobin 0.5 % (0.0-1.5) 02/08/22 09:20 Oxyhemoglobin 96.1 % (95.0-99.0) 02/08/22 09:20 FiO2 35 % 02/08/22 09:20 Sodium 141 mmol/L (137-145) 02/24/22 04:03 Potassium 3.8 mmol/L (3.6-5.0) 02/24/22 04:03 Chloride 106.2 mmol/L (98-107) 02/24/22 04:03 Carbon Dioxide 27 mmol/L (22-30) 02/24/22 04:03 Anion Gap 12 mmol/L 02/24/22 04:03 BUN 10 mg/dL (9-20) 02/24/22 04:03 Creatinine 0.5 mg/dL (0.8-1.3) L 02/24/22 04:03 Estimated GFR > 60 ml/min 02/24/22 04:03 BUN/Creatinine Ratio 20 % 02/24/22 04:03 Glucose 81 mg/dL (75-100) 02/24/22 04:03 POC Glucose 96 mg/dL (70-105) 03/03/22 11:32 Calcium 8.8 mg/dL (8.4-10.2) 02/24/22 04:03 Total Bilirubin 0.30 mg/dL (0.1-1.2) 02/23/22 04:08 AST 9 units/L (5-40) 02/23/22 04:08 ALT 11 units/L (7-56) 02/23/22 04:08 Alkaline Phosphatase 23 units/L (35-129) L 02/23/22 04:08 Total Protein 5.2 g/dL (6.3-8.2) L 02/23/22 04:08 Albumin 4.8 g/dL (3.9-5) 02/23/22 04:08 Albumin/Globulin Ratio 12.0 % 02/23/22 04:08 Actin IgG Antibody <20 U (<20) 02/16/22 04:52 Blood Type O POSITIVE 02/24/22 11:33 Antibody Screen Negative 02/24/22 11:33 Roberson/IV: Voiding Method Urinal Active Medications - Current Medications Current Medications: Generic Name Dose Route Start Last Admin Trade Name Freq PRN Reason Stop Dose Admin Acetaminophen 650 mg 02/06/22 15:00 03/04/22 10:15 Acetaminophen 325 Mg Tab PO 650 mg Q6H PRN Administration Pain MILD(1-3)/Fever >100.5/WEINBERG Albuterol 2.5 mg 02/06/22 15:00 02/15/22 21:54 Albuterol 2.5 Mg/3 Ml Nebu IH 2.5 mg Q3HRT PRN Administration Shortness Of Breath Diphenhydramine HCl 25 mg 02/15/22 14:06 02/16/22 11:49 Diphenhydramine 50 Mg/Ml Vial IV 25 mg Q6H PRN Administration Itching Enoxaparin Sodium 40 mg 02/06/22 22:00 03/05/22 21:57 Enoxaparin 40 Mg/0.4 Ml Inj SUB-Q 40 mg QDAY@2200 NESTOR Administration Protocol Famotidine 20 mg 02/12/22 10:00 03/05/22 21:57 Famotidine 20 Mg Tab PO 20 mg BID NESTOR Administration Hydrophilic Ointment 1 applic 02/07/22 10:55 Lip Therapy Vaseline TP Q2HR PRN Dry Lips Melatonin 5 mg 02/21/22 01:15 02/27/22 23:33 Melatonin 5 Mg Tab PO 5 mg QHS PRN Administration Sleep Multi-Ingred Cream/Lotion/Oil/Oint 1 applic 02/07/22 10:55 Mineral Oil/Petrolatum, White Ophth Oint 3.5 Gm OU Q4HR PRN Dry Eye(s) Mycophenolate Mofetil 1,000 mg 02/21/22 10:00 03/05/22 21:57 Mycophenolate 500 Mg Tab PO 1,000 mg BID NESTOR Administration Ondansetron HCl 4 mg 02/08/22 17:00 02/20/22 23:58 Ondansetron 4 Mg/2 Ml Inj IV 4 mg Q8H PRN Administration Nausea And Vomiting Oxycodone/Acetaminophen 1 tab 02/06/22 15:00 03/06/22 00:12 Oxycodone /Acetaminophen 5-325mg Tab PO 1 tab Q16H PRN Administration Pain, Moderate (4-6) Prednisone 60 mg 02/28/22 10:00 03/05/22 11:18 Prednisone 20 Mg Tab PO 60 mg QDAY NESTOR Administration Pyridostigmine [place] 120 mg 02/27/22 19:00 03/06/22 06:03 Pyridostigmine [place] 60 Mg Tab PO 120 mg Q6HR NESTOR Administration Senna/Docusate Sodium 1 tab 02/12/22 10:00 03/05/22 21:57 Sennosides/Docusate Sodium 8.6/50 Mg Tab PO 1 tab BID NESTOR Administration Sodium Chloride 10 ml 02/06/22 22:00 03/05/22 21:57 Sodium Chloride 0.9% 10 Ml Flush Syringe IV 10 ml BID NESTOR Administration Sodium Chloride 10 ml 02/06/22 13:59 Sodium Chloride 0.9% 10 Ml Flush Syringe IV PRN PRN LINE FLUSH Nutrition/Malnutrition Assess - Dietary Evaluation Nutrition/Malnutrition Findings: Nutrition Notes Start: 02/07/22 13:09 Freq: Status: Active Protocol: Document 02/27/22 14:07 PRADEEP (Rec: 02/27/22 14:34 PRADEEP [id number]) Nutrition Notes Initial or Follow up Reassessment Current Diagnosis Respiratory Failure Other Pertinent Diagnosis Myasthenia Gravis, ANTON, Hepatic Hemangiomas. Current Diet Regular Diet (since L 02/19). Labs/Tests 02/27: Crea 0.5. Pertinent Medications 02/27: Nutritionally unremarkable. Height 5 ft 10 in Weight 102 kg [place] Body Weight (kg) 75.45 BMI 32.2 Weight change and time frame No body weight change reported in 1 week. Weight Status Obese Subjective/Other Information RD consult for routine F/U on dietary advancement. No further reports available on Pt's PO intake of meals, will assess at F/U if possible . Pt is on Room Air, O2 saturation @ 96%, according to Physical Assessment History notes. Pt finished plasma exchange tratment and is cleared for discharge home with family, according to Progress notes. Percent of energy/protein needs met: Prescribed Regular Diet provides for energy/protein needs (2,289 Kcal/89 g) during LOS. Burn Absent Trauma Absent GI Symptoms None Food Allergy No Skin Integrity/Comment Assessment WNL. Minimum of two criteria No Fluid Accumulation N/A Reduced Insole And Outsole Splitter Strength N/A (non-severe) Protein-Calorie Malnutrition N\\A Is patient on ventilator? No Is Patient Ambulatory and/or Out of Bed No REE-([facility]-confined to bed) 2349.732 Kcal/Kg value to use for calculation 20 Approximate Energy Requirements Using 2040 kcal/Kg Calculation Used for Recommendations Kcal/kg Additional Notes Protein: 0.8-1 g/Kg AdjBW; 71- 89 g/day. Fluids: 1 ml/Kcal, or as per MD. Nutrition Intervention Change Diet Order: Contrinue Regular Diet. Follow-Up By: 03/06/22 Additional Comments Continue monitoring food tolerance, %PO intake of meals , and BM.
[2022-03-06] MEDS: SENNOSIDES/DOCUSATE SODIUM 8.6/50 MG TAB PO SCH ×2 (11:17→21:45)
[2022-03-06] MEDS: FAMOTIDINE 20 MG TAB PO SCH ×2 (11:17→21:45)
[2022-03-06] MEDS: MYCOPHENOLATE 500 MG TAB PO SCH ×2 (11:18→21:45)
[2022-03-06] MEDS: predniSONE 20 MG TAB PO SCH (11:20)
--- NOTE | 2022-03-06 16:29 | Progress Note ---
Assessment and Plan Myasthenic crisis, s/p MVS Obesity Possible ANTON / OHS Blurry vision Mild hypokalemia-resolved Mild metabolic acidosis-resolved Slow steroid taper Discontinue RIJ HD catheter PT/OT, continue Discharge planning -Continue immunosuppresants- prednisone , pyridostigmine and cellcept. -continue to avoid aminoglycosides, flouroquinolones -continue to keep potassium at 4, Mag at 2 and Phos at >2.5 - continue to titrate supplemental oxygen to keep SpO2 90-92% - CPAP qhs and prn - continue bronchodilators with pulmonary hygiene per RT - continue accuchecks with glycemic control per SSI (While critically ill target blood glucose of 140-180 mg/dL; avoid hypoglycemia) - avoid nephrotoxins, renally dose all medications - continue to avoid benzodiazepines, reduce the possibility of delirium - prn analgesia per CPOT score - Maintenance of sleep-wake cycle, avoid delirium - VTE prophylaxis- Heparin - continue other care per attending / other consultants CONDITION: FAIR PROGNOSIS: FAIR CODE STATUS: FULL CODE Subjective Date of service: 03/06/22 Principal diagnosis: Myasthenic crisis; Obesity; Possible ANTON/OHS; Blurry vision; Hypokalemia Interval history: Patient is seen today for: Myasthenic crisis; Obesity; Possible ANTON / OHS; Blurry vision; Mild hypokalemia; Mild metabolic acidosis Seen and examined at bedside; 24hour events reviewed; nursing and respiratory care staff consulted; no adverse overnight events reported to me; resting in bed; denies N/V/F/C; awake and alert, feels great. Resting in bed, compliant with CPAP at night Objective Vital Signs - 12hr 03/06/22 03/06/22 03/06/22 05:59 06:00 10:52 Temperature 98.5 F Pulse Rate 49 L 74 Respiratory 18 20 Rate Blood Pressure 116/66 114/60 O2 Sat by Pulse 100 87 Oximetry Constitutional: no acute distress, alert, other (young obese male without increased respiratory effort at rest) Eyes: non-icteric, other (RIJ HD catheter) ENT: oropharynx moist Neck: supple, no lymphadenopathy, no JVD, other (large circumference) Effort: normal Ascultation: Bilateral: clear, diminished breath sounds Percussion: Bilateral: not dull Cardiovascular: regular rate and rhythm Gastrointestinal: normoactive bowel sounds, soft, non-tender, non-distended (protuberant) Integumentary: normal Extremities: no cyanosis, no edema, pulses normal, no ischemia or petechiae Neurologic: non-focal exam (grossly), pupils equal and round, CN II-XII normal, other (weak (3-4/5)) Psychiatric: mood appropriate, affect normal CBC and BMP: 02/24/22 04:03 02/24/22 04:03 ABG, PT/INR, D-dimer: ABG ABG pH 7.333 pH Units (7.350-7.450) L 02/08/22 09:20 ABG pCO2 48.2 mm Hg 02/08/22 09:20 ABG pO2 114.7 mm Hg (80.0-90.0) H 02/08/22 09:20 ABG O2 Saturation 97.9 % (95.0-99.0) 02/08/22 09:20 Abnormal lab findings: Abnormal Labs 02/06/22 02/06/22 02/06/22 12:39 12:39 13:59 WBC RBC 5.75 H Hgb Hct MCV 74 L MCH 23 L MCHC 30 L RDW 16.9 H Lymph % (Auto) 6.4 L [place] % (Auto) Lymph # (Auto) 0.5 L [place] # (Auto) Seg Neutrophils % 89.3 H Seg Neutrophils # Fibrinogen ABG pH ABG pO2 ABG Hemoglobin 12.6 L Oxyhemoglobin Potassium 3.5 L Chloride 109.1 H Carbon Dioxide 20 L Creatinine 0.7 L Glucose 113 H Alkaline Phosphatase Total Protein Albumin 02/07/22 02/07/22 02/08/22 04:15 12:00 04:23 WBC RBC 5.10 H Hgb 11.5 L 11.0 L Hct MCV 72 L 74 L MCH 23 L 22 L MCHC 30 L RDW 17.3 H 17.1 H Lymph % (Auto) [place] % (Auto) 9.1 H Lymph # (Auto) [place] # (Auto) Seg Neutrophils % Seg Neutrophils # Fibrinogen ABG pH ABG pO2 72.6 L ABG Hemoglobin 12.2 L Oxyhemoglobin 94.4 L Potassium Chloride Carbon Dioxide Creatinine Glucose Alkaline Phosphatase Total Protein Albumin 02/08/22 02/08/22 02/09/22 04:23 09:20 04:50 WBC RBC Hgb 10.4 L Hct 33.7 L MCV 73 L MCH 22 L MCHC 31 L RDW 17.5 H Lymph % (Auto) [place] % (Auto) Lymph # (Auto) [place] # (Auto) Seg Neutrophils % Seg Neutrophils # Fibrinogen ABG pH 7.333 L ABG pO2 114.7 H ABG Hemoglobin 11.1 L Oxyhemoglobin Potassium Chloride 109.3 H Carbon Dioxide Creatinine 0.6 L Glucose Alkaline Phosphatase Total Protein Albumin 02/09/22 02/10/22 02/11/22 04:50 04:50 04:38 WBC 4.4 L 3.3 L RBC Hgb 10.1 L 10.4 L Hct 32.9 L 33.6 L MCV 73 L 73 L MCH 22 L 23 L MCHC 31 L 31 L RDW 17.2 H 17.0 H Lymph % (Auto) [place] % (Auto) Lymph # (Auto) [place] # (Auto) Seg Neutrophils % Seg Neutrophils # Fibrinogen ABG pH ABG pO2 ABG Hemoglobin Oxyhemoglobin Potassium Chloride Carbon Dioxide Creatinine Glucose 107 H Alkaline Phosphatase Total Protein Albumin 02/11/22 02/12/22 02/13/22 04:38 04:25 04:17 WBC 3.7 L 3.5 L RBC Hgb 10.5 L 10.8 L Hct 34.5 L MCV 73 L 73 L MCH 22 L 22 L MCHC 30 L 30 L RDW 16.9 H 17.5 H Lymph % (Auto) [place] % (Auto) Lymph # (Auto) [place] # (Auto) Seg Neutrophils % Seg Neutrophils # Fibrinogen ABG pH ABG pO2 ABG Hemoglobin Oxyhemoglobin Potassium Chloride Carbon Dioxide Creatinine 0.7 L Glucose 101 H Alkaline Phosphatase Total Protein Albumin 02/16/22 02/16/22 02/18/22 04:52 04:52 07:18 WBC RBC Hgb 11.4 L 11.4 L Hct 35.3 L MCV 71 L 72 L MCH 23 L 23 L MCHC RDW 17.4 H 17.3 H Lymph % (Auto) 43.5 H [place] % (Auto) 7.6 H 7.6 H Lymph # (Auto) [place] # (Auto) Seg Neutrophils % 71.5 H Seg Neutrophils # Fibrinogen ABG pH ABG pO2 ABG Hemoglobin Oxyhemoglobin Potassium Chloride Carbon Dioxide Creatinine 0.6 L Glucose Alkaline Phosphatase Total Protein Albumin 3.5 L 02/18/22 02/18/22 02/20/22 07:18 07:18 04:23 WBC RBC 5.22 H Hgb 11.6 L Hct MCV 73 L MCH 22 L MCHC 31 L RDW 18.0 H Lymph % (Auto) [place] % (Auto) Lymph # (Auto) [place] # (Auto) Seg Neutrophils % Seg Neutrophils # Fibrinogen 144 L* ABG pH ABG pO2 ABG Hemoglobin Oxyhemoglobin Potassium Chloride Carbon Dioxide Creatinine 0.5 L Glucose Alkaline Phosphatase Total Protein Albumin 02/20/22 02/20/22 02/21/22 04:23 04:23 09:50 WBC 13.1 H RBC 5.36 H Hgb Hct MCV 73 L MCH 22 L MCHC 31 L RDW 18.4 H Lymph % (Auto) [place] % (Auto) Lymph # (Auto) [place] # (Auto) 1.0 H Seg Neutrophils % Seg Neutrophils # 8.5 H Fibrinogen 89 L* ABG pH ABG pO2 ABG Hemoglobin Oxyhemoglobin Potassium Chloride Carbon Dioxide Creatinine 0.5 L Glucose 107 H Alkaline Phosphatase Total Protein Albumin 02/21/22 02/21/22 02/22/22 09:50 09:50 03:30 WBC 11.7 H RBC 5.16 H Hgb 11.4 L Hct MCV 73 L MCH 22 L MCHC 31 L RDW 18.5 H Lymph % (Auto) [place] % (Auto) Lymph # (Auto) [place] # (Auto) Seg Neutrophils % Seg Neutrophils # Fibrinogen 100 L* ABG pH ABG pO2 ABG Hemoglobin Oxyhemoglobin Potassium Chloride Carbon Dioxide Creatinine 0.7 L Glucose Alkaline Phosphatase Total Protein Albumin 02/22/22 02/22/22 02/23/22 03:30 10:11 04:08 WBC 11.4 H RBC Hgb 10.5 L Hct 33.9 L MCV 72 L MCH 22 L MCHC 31 L RDW 19.3 H Lymph % (Auto) [place] % (Auto) Lymph # (Auto) [place] # (Auto) Seg Neutrophils % Seg Neutrophils # Fibrinogen 114 L* ABG pH ABG pO2 ABG Hemoglobin Oxyhemoglobin Potassium Chloride Carbon Dioxide Creatinine 0.5 L Glucose Alkaline Phosphatase Total Protein 5.8 L Albumin 02/23/22 02/24/22 02/24/22 04:08 04:03 04:03 WBC RBC Hgb 10.3 L Hct 33.2 L MCV 72 L MCH 22 L MCHC 31 L RDW 19.0 H Lymph % (Auto) [place] % (Auto) Lymph # (Auto) [place] # (Auto) Seg Neutrophils % Seg Neutrophils # Fibrinogen 68 L* ABG pH ABG pO2 ABG Hemoglobin Oxyhemoglobin Potassium Chloride Carbon Dioxide Creatinine 0.5 L Glucose Alkaline Phosphatase 23 L Total Protein 5.2 L Albumin 02/24/22 04:03 WBC RBC Hgb Hct MCV MCH MCHC RDW Lymph % (Auto) [place] % (Auto) Lymph # (Auto) [place] # (Auto) Seg Neutrophils % Seg Neutrophils # Fibrinogen ABG pH ABG pO2 ABG Hemoglobin Oxyhemoglobin Potassium Chloride Carbon Dioxide Creatinine 0.5 L Glucose Alkaline Phosphatase Total Protein Albumin Allied health notes reviewed: nursing
[2022-03-06] MEDS: ENOXAPARIN 40 MG/0.4 ML INJ SUB-Q SCH (21:46)
[2022-03-07] MEDS: PYRIDOSTIGMINE BROMIDE 60 MG TAB PO SCH ×4 (05:04→23:54)
--- NOTE | 2022-03-07 09:37 | Progress Note ---
Assessment and Plan Assessment and plan: This is a 36-year-old male with known past medical history of obesity and myasthenia gravis admitted for myasthenia gravis crisis. 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 He was passing through [place] when symptoms started - S/p emergent intubation by anethesia - CT chest w con showed no evidence of thymoma - Neurology consulted, appreciated recommendations - Resumed home meds: Cellcept, Mestinon, and PO Prednisone - Completed X 5 days of IVIG - Plasma exchange initiated on 02/16, Received X2 treament. For a total of 5 exchanges to be completed over 9 days. - CCM also on consult, appreciated recommendations - Patient reported that his neurologist in [place] is Dr. Billie Delgado - Transfer to [facility] was declined, no available ICU beds at this time. They recommend continuing IVIG and possible plasma exchange -Plasmapheresis being done today and FFP's were ordered as fibrinogen is low #Acute Hypoxemic Respiratory Failure #Probable ANTON- On CPAP at home #Former Smoker - most likely related to MG crisis - S/p emergent intubation by anesthesia on 02/07 for airway protection - 02/09 s/p extubation - Stable on RA this am - CCM consulted, appreciate recommendations - Completed X5 days of IVIG - Continue plasma exchange and IS ordered - Continue Bipap at night - Aspiration precaution HOB above 30 - PRN O2 supplementation as needed - Continue SPO2 monitoring for SPO2 goal above 92% #Hepatic Hemangiomas - noted fro CT chest w/o con - Stable, LFTs within normal range - Outpatient follow up for US and further workups #Obesity - Balanced diet, increase physical activity discharge, outpatient pulmonary follow-up for sleep study, weight reduction. #GI/DVT Prophylaxis - PPI- Pepcid - Lovenox SubQ - SCD to bilateral lower extremities while in bed Hospital Course to Date: 02/07: S/p X1 dose of IV IG overnight, patient reported feeling much better and stronger this am, moving all extremities. Plan to wean off Bipap this am. Okay to start a diet if patient pass bedside swallow. D/W CCM plan for CT chest w con tomorrow to r/o thymoma. Neurology consulted. 02/08: S/p emergent intubation by anethesia yesterday. Now intubated and sedated, RASS -2. Neurology recommendations noted. Resumed home meds. Will wean off sedation this am for possible SAT/SBT. CT chest also noted with no evidence of thymoma. Continue IVIG. Attending received call back from [facility]. Transfer was d eclined, no available ICU beds at this time. They recommend continuing IVIG and possible plasma exchange. Awaiting on Neurology final recommendations. 02/09: S/p Extubation this am. Desated to 85% on 3L NC, SPO2 improved to 88% on 8L NC. This am CXR noted, worsen opacity of the left side. CCM at the bedside, X1 dose of IV Lasix ordered and place patient on Bipap. Low Threshold for reintubation. Plan of care and the high probability for reintubation was discussed with patient at the bedside. Patient verbalized understanding and agree with current care plan. Continue IVIG, Awaiting on Neurology final recommendations. 02/10: Tolerated Bipap, now on 2L NC this am, SPO2 at 100%. No s/s of any acute respiratory distress noted. This am CXR also noted with significant improvement. Continue IVIGm and Bipap at night. Incentive Spirometer also ordered. advance diet as tolerated. PT/OT/Speech consulted. 02/11: Completed x5days of IVIG overnight. Stable on RA, still complaining of generalized weakness, other stable. Diet advanced to solid this am, patient is tolerating it. Continue IS and Bipap at night. Encourage mobility as tolerated, PT/OT/Speech consult pending. 02/12: CPAP prn, currently on RA. Improved strength to BLE and BUE per patient. 02/13: Increased weakness reported on encounter. increased steroid dose to prednisone 40 mg po daily. Continue pyridostigmine and cellcept. Possible d/c tomorrow. 02/14: Weakness improved however still continues to have difficulty with stren gth. Still has right eye lid droop. Patient increased to prednisone 60 mg po daily. He has had 4 myasthenia gravis crises in the past and was initiated on high dose steroids with assisted taper by her OP neurologist. Pt recommended home with home health care PT. Ambulation is challenging as patient requires a rolling walker. 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 Patient is not a resident of [place]. States his home state is [place]. He has a sister in [place] who's address he uses for mailing purposes. Will work with CM to coordinate placement. 02/15: worsened strength. Admits to dysphagia and shortness of breath today. Given worsening symptmology transferring back to ICU for close monitoring. Plasma exchange ordered, first tx tomorrow, coordinated with Dr Katya Centeno [place]. Will place vascath today/tomorrow AM for exchanges. Steroid dose increased to Prednisone 80 mg po daily in interim. Will attempt to call neurologist tomorrow AM. 02/16: Plan for plasma exchange today. Labs reviewed, cbc/bmp/fibrinogen all unremarkable. Trialysis catheter placed, pt tolerated procedure well. Taryn Manley will be here today do 4L exchange. A total of 5 exchanges will be completed over 9 days. A total of 20 L 5% albumin will be needed, pharmacy was notified yesterday of this. Continue prednisone 80 mg po daily dose. 02/17: No overnight events. No acute complaints. Tolerated PLEX well. Continue steroids and will follow for symptom improvement. 02/18: Plex tx today. XR ordered due to severe rib pain, no rib fx ID. Will continue to follow for sx improvement. 02/19: Doing much better this am. OOB and sitting up in the chair this am, stable on RA. Still complaining of generalized but reported feeling better. Continue plasma exchange and PO prednisone, cellcept, and Mycophenolate. Continue PT/OT. 02/20: Patient seen and examined, clinically showing some improvement, will continue on current Prednisone Dose, patients fibrinogen is lower than 100, we do not have plasma inhouse, patient will undergo PLEX with Albumin and recieve Cyroprecipitated (Ordered) after per the [facility] team. Continue to monitor NIF Continue IMCU care in this critically ill patient. 02/21: Tolerated PLEX yesterday, Fibrinogen improved to 100. Patient has leukocytosis today without fever, no new neuro deficits reported today. Will request Neuro-revaluation. Case management continues to work on safe discharge plan. Plan discussed with the patient. Dispo based on evaluation by Neuro 02/22: Patient seen and examined today, awaiting 4/5 PLEX therapy, awaiting Neurology re-evaluation. Discussed with case management and patient about discharge plans. 02/23: Patient seen and examined, Neurology input noted: change mestinon from 180 mg po qday to 60 mg po tid; prednisone from 80 mg po qday to 40 mg po qday; continue cellcept (per home regimen); plex 4/5 ongoing at bedside today; pt/ot/st evaluation/monitoring; f/u established neurologist within 2 weeks post- discharge. Patient can be discharged after THE LAST PLEX TOMORROW. 02/24/2022 Patient receiving plasma exchange and FFP's 02/25/2022 Patient finished course of plasma exchanges and FFP's Patient to be tapered on prednisone from 80 mg Had extensive discussion with the patient Patient lives in [place] and is on Mestinon and prednisone Patient is willing to fly back to [place] and follow-up with his PCP Patient to be discharged on prednisone tapering dose 60 mg for 5 days 40 mg for 5 days 20 mg for 5 days and then continue at 10 mg 02/26/2022. Patient completed plasma exchange and FFP. Continue prednisone taper. Apparently, pulmonary wants to continue to monitor the patient for 24 hours. Anticipate discharge later today or in a.m. 02/27/2022: Discharge home today. rx for prednisone, mestinon, and cellcept provided. 02/28; d/c cancelled yesterday as patient was experiencing weakness. Feels as though he is "flaring" Mestonin increased to 120 mg q6hr. Monitor for anticholinergic side effects. Continue prednisone at high dose and continue cellcept at home dose 1000 mg po bid. Again this patient likely has suboptimal maintenance therapy...do not lower prednisone dose at this time . PT eval and continued exercises ordered. Unfortunately placement of this patient will be challenging as he lives out of his truck and insurance status will make his placement tough. 02/28: Continue med therapy for MG. PT recommend [facility] w/ rolling walker. will to continue to work with patient today. Extensive discussion with CM re: placement during rounds today. Will work towards safe discharge plan. 03/01: Discharge canceled. 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 D/w CM during rounds who will need to find alternative solution...this patient absolutely cannot return to semi-truck as it poses a danger not only to self but to others should he operate it. D/w DAIRY TESTER regarding difficult placement. 03/02: Patient doing well this morning. He states his weakness is gradually improving. Denies any anticholinergic effects of pyridostigmine dosing. Placement for the patient continues to be a challenge. Discussed with CM and reviewed note from Saturday. Patient has desire to go back to living in truck. He does not however have a "community"/adequate support system and the current lot that the truck is currently parked in does not have living quarters as previously believed to be the case. Previously when questioning the patient about his community, the patient stated that he does not really have any friends and is estranged from family who could potentially help look after them. He states that the lot that the truck is currently in has no attendants on weekends. Discharging the patient back to his truck would absolutely not be the safest option for this patient and could potentially pose a public hazard should the patient decide to operate his vehicle given his current condition. While the patient has expressed that he will not operate his vehicle, I would recommend that the patient be discharged in a personal long-term/apartment/ or living situation with family/friend that does not involve living in his motor vehicle so he can continue with physical rehab therapy. I also recommend that he gets full clearance from an outpatient physician and/or neurologist prior to returning to operate his vehicle. I discussed this with the patient as well as potential concerns of him going back to the truck and he voiced understanding with this. All things considered, given the patient's improvement this weekend, we will continue to follow for improvement in his clinical condition to the point where he may potentially not need assistance. We will continue to work with case management for additional assistance in a safe discharge. 03/03: No acute complaints on encounter. Patient states that he feels like his weakness is improving. We will continue to follow for clinical improvement. 03/04: Dizziness on AM encounter. Awaiting final PT recommendations. Patient strength progressively improving. Again, current maintenance therapy has been optimal, I would not recommend changes to meds at this time. I recommend at the time of discharge that the patient be maintained on the current regimen with OP f/u with his [place] neurologist. Possible discharge early this week if recovery continues to progress to the point where patient is zero assist. 03/06: Patient still reporting dizziness with minimal activity. We will check orthostatic vital signs. Consider fluid bolus as needed 03/07: Patient appears to have symptomatic bradycardia. Patient reports dizziness with exertion. Again, we will follow-up orthostatic vital signs. Check echocardiogram and consider cardiology consultation History Interval history: No new issues overnight Hospitalist Physical - Constitutional Vitals: Temp Pulse Resp BP Pulse Ox 97.9 F 71 18 124/61 93 03/07/22 05:15 03/07/22 05:15 03/07/22 05:15 03/07/22 05:15 03/07/22 05:15 General appearance: Present: no acute distress, well-nourished - EENT Eyes: Present: PERRL, EOM intact ENT: hearing intact, clear oral mucosa, dentition normal - Neck Neck: Present: supple, normal ROM - Respiratory Respiratory effort: normal Respiratory: bilateral: CTA - Cardiovascular Rhythm: regular Heart Sounds: Present: S1 & S2. Absent: gallop, rub - Extremities Extremities: no ischemia, No edema, Full ROM - Abdominal General gastrointestinal: soft, non-tender, non-distended, normal bowel sounds - Integumentary Integumentary: Present: clear, warm, dry - Neurologic Neurologic: CNII-XII intact, moves all extremities Results - Labs CBC & Chem 7: 02/24/22 04:03 02/24/22 04:03 Labs: Laboratory Last Values WBC 10.4 K/mm3 (4.5-11.0) 02/24/22 04:03 RBC 4.60 M/mm3 (3.65-5.03) 02/24/22 04:03 Hgb 10.3 gm/dl (11.8-15.2) L 02/24/22 04:03 Hct 33.2 % (35.5-45.6) L 02/24/22 04:03 MCV 72 fl (84-94) L 02/24/22 04:03 MCH 22 pg (28-32) L 02/24/22 04:03 MCHC 31 % (32-34) L 02/24/22 04:03 RDW 19.0 % (13.2-15.2) H 02/24/22 04:03 Plt Count 235 K/mm3 (140-440) 02/24/22 04:03 Lymph % (Auto) 27.4 % (13.4-35.0) 02/21/22 09:50 [place] % (Auto) 7.3 % (0.0-7.3) 02/21/22 09:50 Eos % (Auto) 0.1 % (0.0-4.3) 02/21/22 09:50 Baso % (Auto) 0.2 % (0.0-1.8) 02/21/22 09:50 Lymph # (Auto) 3.6 K/mm3 (1.2-5.4) 02/21/22 09:50 [place] # (Auto) 1.0 K/mm3 (0.0-0.8) H 02/21/22 09:50 Eos # (Auto) 0.0 K/mm3 (0.0-0.4) 02/21/22 09:50 Baso # (Auto) 0.0 K/mm3 (0.0-0.1) 02/21/22 09:50 Seg Neutrophils % 65.0 % (40.0-70.0) 02/21/22 09:50 Seg Neutrophils # 8.5 K/mm3 (1.8-7.7) H 02/21/22 09:50 Fibrinogen 68 mg/dl (211-480) L* 02/24/22 04:03 ABG pH 7.333 pH Units (7.350-7.450) L 02/08/22 09:20 ABG pCO2 48.2 mm Hg 02/08/22 09:20 ABG pO2 114.7 mm Hg (80.0-90.0) H 02/08/22 09:20 ABG HCO3 25.0 mmol/L (20.0-26.0) 02/08/22 09:20 ABG O2 Saturation 97.9 % (95.0-99.0) 02/08/22 09:20 ABG O2 Content 15.1 (0.0-44) 02/08/22 09:20 ABG Base Excess -1.1 mmol/L (-2.0-3.0) 02/08/22 09:20 ABG Hemoglobin 11.1 gm/dl (14.0-18.0) L 02/08/22 09:20 ABG Carboxyhemoglobin 1.4 % (0.0-5.0) 02/08/22 09:20 ABG Methemoglobin 0.5 % (0.0-1.5) 02/08/22 09:20 Oxyhemoglobin 96.1 % (95.0-99.0) 02/08/22 09:20 FiO2 35 % 02/08/22 09:20 Sodium 141 mmol/L (137-145) 02/24/22 04:03 Potassium 3.8 mmol/L (3.6-5.0) 02/24/22 04:03 Chloride 106.2 mmol/L (98-107) 02/24/22 04:03 Carbon Dioxide 27 mmol/L (22-30) 02/24/22 04:03 Anion Gap 12 mmol/L 02/24/22 04:03 BUN 10 mg/dL (9-20) 02/24/22 04:03 Creatinine 0.5 mg/dL (0.8-1.3) L 02/24/22 04:03 Estimated GFR > 60 ml/min 02/24/22 04:03 BUN/Creatinine Ratio 20 % 02/24/22 04:03 Glucose 81 mg/dL (75-100) 02/24/22 04:03 POC Glucose 96 mg/dL (70-105) 03/03/22 11:32 Calcium 8.8 mg/dL (8.4-10.2) 02/24/22 04:03 Total Bilirubin 0.30 mg/dL (0.1-1.2) 02/23/22 04:08 AST 9 units/L (5-40) 02/23/22 04:08 ALT 11 units/L (7-56) 02/23/22 04:08 Alkaline Phosphatase 23 units/L (35-129) L 02/23/22 04:08 Total Protein 5.2 g/dL (6.3-8.2) L 02/23/22 04:08 Albumin 4.8 g/dL (3.9-5) 02/23/22 04:08 Albumin/Globulin Ratio 12.0 % 02/23/22 04:08 Actin IgG Antibody <20 U (<20) 02/16/22 04:52 Blood Type O POSITIVE 02/24/22 11:33 Antibody Screen Negative 02/24/22 11:33 [place]/IV: Voiding Method Urinal Active Medications - Current Medications Current Medications: Generic Name Dose Route Start Last Admin Trade Name Freq PRN Reason Stop Dose Admin Acetaminophen 650 mg 02/06/22 15:00 03/04/22 10:15 Acetaminophen 325 Mg Tab PO 650 mg Q6H PRN Administration Pain MILD(1-3)/Fever >100.5/[place] Albuterol 2.5 mg 02/06/22 15:00 02/15/22 21:54 Albuterol 2.5 Mg/3 Ml Nebu IH 2.5 mg Q3HRT PRN Administration Shortness Of Breath Diphenhydramine HCl 25 mg 02/15/22 14:06 02/16/22 11:49 Diphenhydramine 50 Mg/Ml Vial IV 25 mg Q6H PRN Administration Itching Enoxaparin Sodium 40 mg 02/06/22 22:00 03/06/22 21:46 Enoxaparin 40 Mg/0.4 Ml Inj SUB-Q 40 mg QDAY@2200 NESTOR Administration Protocol Famotidine 20 mg 02/12/22 10:00 03/06/22 21:45 Famotidine 20 Mg Tab PO 20 mg BID NESTOR Administration Hydrophilic Ointment 1 applic 02/07/22 10:55 Lip Therapy Vaseline TP Q2HR PRN Dry Lips Melatonin 5 mg 02/21/22 01:15 02/27/22 23:33 Melatonin 5 Mg Tab PO 5 mg QHS PRN Administration Sleep Multi-Ingred Cream/Lotion/Oil/Oint 1 applic 02/07/22 10:55 Mineral Oil/Petrolatum, White Ophth Oint 3.5 Gm OU Q4HR PRN Dry Eye(s) Mycophenolate Mofetil 1,000 mg 02/21/22 10:00 03/06/22 21:45 Mycophenolate 500 Mg Tab PO 1,000 mg BID NESTOR Administration Ondansetron HCl 4 mg 02/08/22 17:00 02/20/22 23:58 Ondansetron 4 Mg/2 Ml Inj IV 4 mg Q8H PRN Administration Nausea And Vomiting Oxycodone/Acetaminophen 1 tab 02/06/22 15:00 03/06/22 18:59 Oxycodone /Acetaminophen 5-325mg Tab PO 1 tab Q16H PRN Administration Pain, Moderate (4-6) Prednisone 60 mg 02/28/22 10:00 03/06/22 11:20 Prednisone 20 Mg Tab PO 60 mg QDAY NESTOR Administration Pyridostigmine [place] 120 mg 02/27/22 19:00 03/07/22 05:04 Pyridostigmine [place] 60 Mg Tab PO 120 mg Q6HR NESTOR Administration Senna/Docusate Sodium 1 tab 02/12/22 10:00 03/06/22 21:45 Sennosides/Docusate Sodium 8.6/50 Mg Tab PO 1 tab BID NESTOR Administration Sodium Chloride 10 ml 02/06/22 22:00 03/06/22 21:46 Sodium Chloride 0.9% 10 Ml Flush Syringe IV 10 ml BID NESTOR Administration Sodium Chloride 10 ml 02/06/22 13:59 Sodium Chloride 0.9% 10 Ml Flush Syringe IV PRN PRN LINE FLUSH Nutrition/Malnutrition Assess - Dietary Evaluation Nutrition/Malnutrition Findings: Nutrition Notes Start: 02/07/22 13:09 Freq: Status: Active Protocol: Document 03/06/22 14:35 PRADEEP (Rec: 03/06/22 14:58 PRADEEP [id number]) Nutrition Notes Initial or Follow up Brief Note Other Pertinent Diagnosis Myasthenia Gravis, ANTON, Hepatic Hemangiomas. Current Diet Regular Diet (since L 02/19). Height 5 ft 10 in Weight 102 kg [place] Body Weight (kg) 75.45 BMI 32.2 Weight change and time frame No body weight change reported in 2 weeks. Weight Status Obese Subjective/Other Information RD consult for routine F/U on dietary advancement. Pt's PO intake of meals has been Good (100%) and well tolerated, according to ADL notes. Pt is on Room Air, O2 saturation @ 97%, according to Physical Assessment History notes. Discharge plans were cancelled due to Pt's need for support and not being able to live is the same conditions as before being hospitalized. Further improvement in physical habilities will determine eventual plans for discharge, according to Progress notes. Percent of energy/protein needs met: Prescribed Regular Diet provides for energy/protein needs (2,289 Kcal/89 g) during LOS. Nutrition Intervention Change Diet Order: Continue Regular Diet. Follow-Up By: 03/27/22 Additional Comments Continue monitoring food tolerance, %PO intake of meals , and BM.
[2022-03-07] MEDS: predniSONE 20 MG TAB PO SCH (09:40)
[2022-03-07] MEDS: FAMOTIDINE 20 MG TAB PO SCH ×2 (09:40→21:45)
[2022-03-07] MEDS: SENNOSIDES/DOCUSATE SODIUM 8.6/50 MG TAB PO SCH ×2 (09:40→21:45)
[2022-03-07] MEDS: MYCOPHENOLATE 500 MG TAB PO SCH ×2 (09:40→21:46)
--- NOTE | 2022-03-07 13:18 | Consultation ---
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 He now looks and feels better, and is being prepared for discharge. Cardiology consultation is requested for the finding of intermittent sinus bradycardia with heart rates in the high 40s and low 50s. The patient is asymptomatic. I am unable to confirm from the nursing staff if the transient bradycardia was noted during sleep. Patient reports no prior cardiac history, has no chest pain, no further shortness of breath, no dizziness, no fatigue and no syncope. Chest x-ray on this presentation is of normal size cardiac silhouette and clear lungs. Listed medical history in the chart also includes sleep apnea. Past History Past Medical History: other (Myasthenia gravis) Past Surgical History: Other (Left ear surgery) Social history: single. denies: smoking, alcohol abuse, prescription drug abuse Family history: no significant family history, other (Reviewed) Medications and Allergies Allergies Allergy/AdvReac Type Severity Reaction Status Date / Time No Known Allergies Allergy Verified 02/06/22 11:49 Home Medications Medication Instructions Recorded Confirmed Last Taken Type Mycophenolate [Cellcept] 1,000 mg PO BID 02/06/22 02/06/22 Unknown History Pyridostigmine [Mestinon] 180 mg PO DAILY 02/06/22 02/06/22 Unknown History predniSONE 10 mg PO QDAY 02/06/22 02/06/22 Unknown History Mycophenolate [Cellcept] 1,000 mg PO BID 30 Days #60 tablet 02/27/22 Unknown Rx Pyridostigmine [Mestinon] 60 mg PO TID 30 Days #90 tablet 02/27/22 Unknown Rx predniSONE [Deltasone] 60 mg PO QDAY 30 Days #30 tab 02/27/22 Unknown Rx Active Meds: Active Medications Acetaminophen (Acetaminophen 325 Mg Tab) 650 mg PO Q6H PRN PRN Reason: Pain MILD(1-3)/Fever >100.5/WEINBERG Last Admin: 03/04/22 10:15 Dose: 650 mg Albuterol (Albuterol 2.5 Mg/3 Ml Nebu) 2.5 mg IH Q3HRT PRN PRN Reason: Shortness Of Breath Last Admin: 02/15/22 21:54 Dose: 2.5 mg Diphenhydramine HCl (Diphenhydramine 50 Mg/Ml Vial) 25 mg IV Q6H PRN PRN Reason: Itching Last Admin: 02/16/22 11:49 Dose: 25 mg Enoxaparin Sodium (Enoxaparin 40 Mg/0.4 Ml Inj) 40 mg SUB-Q QDAY@2200 [facility]; Protocol Last Admin: 03/06/22 21:46 Dose: 40 mg Famotidine (Famotidine 20 Mg Tab) 20 mg PO BID [facility] Last Admin: 03/07/22 09:40 Dose: 20 mg Hydrophilic Ointment (Lip Therapy Vaseline) 1 applic TP Q2HR PRN PRN Reason: Dry Lips Melatonin (Melatonin 5 Mg Tab) 5 mg PO QHS PRN PRN Reason: Sleep Last Admin: 02/27/22 23:33 Dose: 5 mg Multi-Ingred Cream/Lotion/Oil/Oint (Mineral Oil/Petrolatum, White Ophth Oint 3.5 Gm) 1 applic OU Q4HR PRN PRN Reason: Dry Eye(s) Mycophenolate Mofetil (Mycophenolate 500 Mg Tab) 1,000 mg PO BID [facility] Last Admin: 03/07/22 09:40 Dose: 1,000 mg Ondansetron HCl (Ondansetron 4 Mg/2 Ml Inj) 4 mg IV Q8H PRN PRN Reason: Nausea And Vomiting Last Admin: 02/20/22 23:58 Dose: 4 mg Oxycodone/Acetaminophen (Oxycodone /Acetaminophen 5-325mg Tab) 1 tab PO Q16H PRN PRN Reason: Pain, Moderate (4-6) Last Admin: 03/06/22 18:59 Dose: 1 tab Prednisone (Prednisone 20 Mg Tab) 60 mg PO QDAY [facility] Last Admin: 03/07/22 09:40 Dose: 60 mg Pyridostigmine Apex (Pyridostigmine Apex 60 Mg Tab) 120 mg PO Q6HR [facility] Last Admin: 03/07/22 12:23 Dose: 120 mg Senna/Docusate Sodium (Sennosides/Docusate Sodium 8.6/50 Mg Tab) 1 tab PO BID [facility] Last Admin: 03/07/22 09:40 Dose: 1 tab Sodium Chloride (Sodium Chloride 0.9% 10 Ml Flush Syringe) 10 ml IV BID NESTOR Last Admin: 03/07/22 09:40 Dose: 10 ml Sodium Chloride (Sodium Chloride 0.9% 10 Ml Flush Syringe) 10 ml IV PRN PRN PRN Reason: LINE FLUSH Review of Systems Cardiovascular: no chest pain, no orthopnea, no palpitations, no rapid/irregular heart beat, no edema, no syncope, no lightheadedness, no shortness of breath Physical Examination Vital Signs Temp Pulse BP Pulse Ox 97.7 F 99 H 172/99 100 02/06/22 11:47 02/06/22 11:47 02/06/22 11:47 02/06/22 11:47 General appearance: no acute distress HEENT: Positive: PERRL Neck: Positive: neck supple Cardiac: Positive: Reg Rate and Rhythm Lungs: Positive: clear to auscultation Neuro: Positive: Grossly Intact Abdomen: Positive: Soft Male genitourinary: Positive: deferred Skin: Positive: Clear Extremities: Absent: edema Results 02/24/22 04:03 02/24/22 04:03 EKG interpretations - Telemetry EKG Rhythm: Sinus Bradycardia Assessment and Plan - Patient Problems (1) Sinus bradycardia Current Visit: Yes Status: Acute Plan to address problem: Patient with asymptomatic sinus bradycardia, likely related to his history of sleep apnea. A twelve-lead EKG EKG just done here is a sinus rhythm at 65, normal ECG. Recommendations are to avoid AV analy blocking agents, order a TSH level, and follow-up in the outpatient setting with his primary resource development director, with outpatient event monitoring as indicated. We will sign off, call if any further cardiac questions.
--- NOTE | 2022-03-07 13:38 | Progress Note ---
Assessment and Plan 36 YO Male with MG currently taking Cellcept, Mycophenolate, and Prednisone presents ED for evaluation. Patient states that he had experienced generalized weakness over the past 1 day with progressive and worsening symptoms over the same timeframe. Patient states that he was able to walk earlier today but he is unable to walk. Patient also acknowledges upper extremity weakness as well as difficulty speaking. EMS was notified and upon arrival the patient was found to be in distress and subsequently transported to [facility] for further care and evaluation of the aforementioned symptoms. The patient was seen and evaluated in the emergency department. All lab and imaging studies reviewed. Patient found to have myasthenia gravis crisis with increased risk for worsening symptoms as well as development of acute hypoxemic respiratory failure. Patient placed on noninvasive positive pressure ventilation in the emergency department and admitted to ICU. IVIG ordered in the emergency department. Patient denies fever, chills, chest pain, palpitation productive cough, skin rash and recent Contact, known exposure to COVID-19. Patient eventually intubated and placed on mechanical ventilation. Patient extubated now. Patient has history vaping 2 times a day x 14 years. Stopped vaping 3 years ago. Denies alcohol abuse. Used Marijuna in his teenage years. Not used Marijuana for long time. 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 Has no children. No known drug allergies. Patient has history of Sleep apnea. Uses CPAP 12 cm H2O during night time. Patient moved to medical floor. Patient Obese, awake . Sitting up in chair, Patient is on room air. O2 saturation 98%. No acute respiratory distress at rest. Cpap on standy in the room. Patient states that his weakness is better. Patient afebrile. No leukocytosis, Blood pressure 121/68, rate 67, respirations 22. Chest xray 02/10/22 Previous density of the left has almost completely cleared with only minimal basilar atelectasis remaining. Right lung field clear. No pneumothorax. CT scan of chest 02/08/[address] evidence of thymoma. Hypoattenuating lesions of the liver statistically reflect hepatic hemangiomas. One of these lesions demonstrate characteristic peripheral puddling of contrast, the second does not clearly demonstrate specific pattern of enhancement. Ultrasound targeting these lesions may be useful for further characterization and confirmation of hemangioma. Moderate subsegmental atelectasis of the bilateral lungs. Satisfactory positioning of endotracheal tube and esophagogastric tube. Chest xray done 02/17/22 reported No significant pulmonary or pleural abnormality. No pneumothorax. Left rib series done on 02/18/22 reported he left ribs appear unremarkable. There is no visible left rib fracture. No acute pulmonary disease. Patient is on Po Prednisone, Albuterol inhaler, S/C Lovenox and famotidine. I - Patient Problems (1) Acute hypoxemic respiratory failure Current Visit: Yes Status: Acute Plan to address problem: CPAP during night time. Continue prednisone. Continue S/C Lovenox. Continue famotidine. Albuterol inhaler prn for shortness of breath. (2) Obesity Current Visit: Yes Status: Acute Qualifiers: Body mass index: BMI 33.0-33.9 Plan to address problem: Counseled to loose weight Exercise and diet. (3) Sleep apnea Current Visit: Yes Status: Acute Plan to address problem: Patient says he has history of sleep apnea. No sleep study results available at this time. Continue CPAP as she is using at home. Recommend to loose weight. Explained sleep hygiene. Recommend not to drive or operate heavy equipment with sleepiness. Avoid alcohol, sedatives and Narcotics If sleep study is while back, recommend to repeat sleep study as out patient. (4) Myasthenia gravis Current Visit: Yes Status: Acute Plan to address problem: Patient finished course of plasmapheresis. Patient says weakness is got better. Management as per primary care and neurology. Subjective Date of service: 03/07/22 Principal diagnosis: Myasthenic crisis; Obesity; Possible ANTON/OHS; Blurry vision; Hypokalemia Interval history: 36 YO Male with MG currently taking Cellcept, Mycophenolate, and Prednisone pre sents ED for evaluation. Patient states that he had experienced generalized weakness over the past 1 day with progressive and worsening symptoms over the same timeframe. Patient states that he was able to walk earlier today but he is unable to walk. Patient also acknowledges upper extremity weakness as well as difficulty speaking. EMS was notified and upon arrival the patient was found to be in distress and subsequently transported to [facility] for further care and evaluation of the aforementioned symptoms. The patient was seen and evaluated in the emergency department. All lab and imaging studies reviewed. Patient found to have myasthenia gravis crisis with increased risk for worsening sym ptoms as well as development of acute hypoxemic respiratory failure. Patient placed on noninvasive positive pressure ventilation in the emergency department and admitted to ICU. IVIG ordered in the emergency department. Patient denies fever, chills, chest pain, palpitation productive cough, skin rash and recent Contact, known exposure to COVID-19. Patient eventually intubated and placed on mechanical ventilation. Patient extubated now. Patient has history vaping 2 times a day x 14 years. Stopped vaping 3 years ago. Denies alcohol abuse. Used Marijuna in his teenage years. Not used Marijuana for long time. 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 Has no children. No known drug allergies. Patient has history of Sleep apnea. Uses CPAP 12 cm H2O during night time. Patient moved to medical floor. Patient Obese, awake . Sitting up in chair, Patient is on room air. O2 saturation 98%. No acute respiratory distress at rest. Cpap on standy in the room. Patient states that his weakness is better. Patient afebrile. No leukocytosis, Blood pressure 121/68, rate 67, respirations 22. Chest xray 02/10/22 Previous density of the left has almost completely cleared with only minimal basilar atelectasis remaining. Right lung field clear. No pneumothorax. CT scan of chest 02/08/[address] evidence of thymoma. Hypoattenuating lesions of the liver statistically reflect hepatic hemangiomas. One of these lesions demonstrate characteristic peripheral puddling of contrast, the second does not clearly demonstrate specific pattern of enhancement. Ultrasound targeting these lesions may be useful for further characterization and confirmation of hemangioma. Moderate subsegmental atelectasis of the bilateral lungs. Satisfactory positioning of endotracheal tube and esophagogastric tube. Chest xray done 02/17/22 reported No significant pulmonary or pleural abnormality. No pneumothorax. Left rib series done on 02/18/22 reported he left ribs appear unremarkable. There is no visible left rib fracture. No acute pulmonary disease. Patient is on Po Prednisone, Albuterol inhaler, S/C Lovenox and famotidine. Objective Vital Signs - 12hr 03/07/22 03/07/22 03/07/22 05:10 05:15 10:00 Temperature 97.9 F 97.9 F Pulse Rate 47 L 71 Respiratory 99 H 18 Rate Blood Pressure 113/68 [Left] Blood Pressure 124/61 [Right] O2 Sat by Pulse 93 97 Oximetry Constitutional: no acute distress, alert, other (young obese male without increased respiratory effort at rest) Eyes: non-icteric, other (RIJ HD catheter) ENT: oropharynx moist Neck: supple, no lymphadenopathy, no JVD, other (large circumference) Effort: normal Ascultation: Bilateral: diminished breath sounds Percussion: Bilateral: not dull Cardiovascular: regular rate and rhythm Gastrointestinal: normoactive bowel sounds, soft, non-tender, non-distended (protuberant) Integumentary: normal Extremities: no cyanosis, no edema, pulses normal, no ischemia or petechiae Neurologic: non-focal exam (grossly), pupils equal and round, CN II-XII normal, other (weak (3-4/5)) Psychiatric: mood appropriate, affect normal CBC and BMP: 02/24/22 04:03 02/24/22 04:03 ABG, PT/INR, D-dimer: ABG ABG pH 7.333 pH Units (7.350-7.450) L 02/08/22 09:20 ABG pCO2 48.2 mm Hg 02/08/22 09:20 ABG pO2 114.7 mm Hg (80.0-90.0) H 02/08/22 09:20 ABG O2 Saturation 97.9 % (95.0-99.0) 02/08/22 09:20 Abnormal lab findings: Abnormal Labs 02/06/22 02/06/22 02/06/22 12:39 12:39 13:59 WBC RBC 5.75 H Hgb Hct MCV 74 L MCH 23 L MCHC 30 L RDW 16.9 H Lymph % (Auto) 6.4 L Coles % (Auto) Lymph # (Auto) 0.5 L Coles # (Auto) Seg Neutrophils % 89.3 H Seg Neutrophils # Fibrinogen ABG pH ABG pO2 ABG Hemoglobin 12.6 L Oxyhemoglobin Potassium 3.5 L Chloride 109.1 H Carbon Dioxide 20 L Creatinine 0.7 L Glucose 113 H Alkaline Phosphatase Total Protein Albumin 02/07/22 02/07/22 02/08/22 04:15 12:00 04:23 WBC RBC 5.10 H Hgb 11.5 L 11.0 L Hct MCV 72 L 74 L MCH 23 L 22 L MCHC 30 L RDW 17.3 H 17.1 H Lymph % (Auto) Coles % (Auto) 9.1 H Lymph # (Auto) Coles # (Auto) Seg Neutrophils % Seg Neutrophils # Fibrinogen ABG pH ABG pO2 72.6 L ABG Hemoglobin 12.2 L Oxyhemoglobin 94.4 L Potassium Chloride Carbon Dioxide Creatinine Glucose Alkaline Phosphatase Total Protein Albumin 02/08/22 02/08/22 02/09/22 04:23 09:20 04:50 WBC RBC Hgb 10.4 L Hct 33.7 L MCV 73 L MCH 22 L MCHC 31 L RDW 17.5 H Lymph % (Auto) Coles % (Auto) Lymph # (Auto) Coles # (Auto) Seg Neutrophils % Seg Neutrophils # Fibrinogen ABG pH 7.333 L ABG pO2 114.7 H ABG Hemoglobin 11.1 L Oxyhemoglobin Potassium Chloride 109.3 H Carbon Dioxide Creatinine 0.6 L Glucose Alkaline Phosphatase Total Protein Albumin 02/09/22 02/10/22 02/11/22 04:50 04:50 04:38 WBC 4.4 L 3.3 L RBC Hgb 10.1 L 10.4 L Hct 32.9 L 33.6 L MCV 73 L 73 L MCH 22 L 23 L MCHC 31 L 31 L RDW 17.2 H 17.0 H Lymph % (Auto) Coles % (Auto) Lymph # (Auto) Coles # (Auto) Seg Neutrophils % Seg Neutrophils # Fibrinogen ABG pH ABG pO2 ABG Hemoglobin Oxyhemoglobin Potassium Chloride Carbon Dioxide Creatinine Glucose 107 H Alkaline Phosphatase Total Protein Albumin 02/11/22 02/12/22 02/13/22 04:38 04:25 04:17 WBC 3.7 L 3.5 L RBC Hgb 10.5 L 10.8 L Hct 34.5 L MCV 73 L 73 L MCH 22 L 22 L MCHC 30 L 30 L RDW 16.9 H 17.5 H Lymph % (Auto) Coles % (Auto) Lymph # (Auto) Coles # (Auto) Seg Neutrophils % Seg Neutrophils # Fibrinogen ABG pH ABG pO2 ABG Hemoglobin Oxyhemoglobin Potassium Chloride Carbon Dioxide Creatinine 0.7 L Glucose 101 H Alkaline Phosphatase Total Protein Albumin 02/16/22 02/16/22 02/18/22 04:52 04:52 07:18 WBC RBC Hgb 11.4 L 11.4 L Hct 35.3 L MCV 71 L 72 L MCH 23 L 23 L MCHC RDW 17.4 H 17.3 H Lymph % (Auto) 43.5 H Coles % (Auto) 7.6 H 7.6 H Lymph # (Auto) Coles # (Auto) Seg Neutrophils % 71.5 H Seg Neutrophils # Fibrinogen ABG pH ABG pO2 ABG Hemoglobin Oxyhemoglobin Potassium Chloride Carbon Dioxide Creatinine 0.6 L Glucose Alkaline Phosphatase Total Protein Albumin 3.5 L 02/18/22 02/18/22 02/20/22 07:18 07:18 04:23 WBC RBC 5.22 H Hgb 11.6 L Hct MCV 73 L MCH 22 L MCHC 31 L RDW 18.0 H Lymph % (Auto) Coles % (Auto) Lymph # (Auto) Coles # (Auto) Seg Neutrophils % Seg Neutrophils # Fibrinogen 144 L* ABG pH ABG pO2 ABG Hemoglobin Oxyhemoglobin Potassium Chloride Carbon Dioxide Creatinine 0.5 L Glucose Alkaline Phosphatase Total Protein Albumin 02/20/22 02/20/22 02/21/22 04:23 04:23 09:50 WBC 13.1 H RBC 5.36 H Hgb Hct MCV 73 L MCH 22 L MCHC 31 L RDW 18.4 H Lymph % (Auto) Coles % (Auto) Lymph # (Auto) Coles # (Auto) 1.0 H Seg Neutrophils % Seg Neutrophils # 8.5 H Fibrinogen 89 L* ABG pH ABG pO2 ABG Hemoglobin Oxyhemoglobin Potassium Chloride Carbon Dioxide Creatinine 0.5 L Glucose 107 H Alkaline Phosphatase Total Protein Albumin 02/21/22 02/21/22 02/22/22 09:50 09:50 03:30 WBC 11.7 H RBC 5.16 H Hgb 11.4 L Hct MCV 73 L MCH 22 L MCHC 31 L RDW 18.5 H Lymph % (Auto) Coles % (Auto) Lymph # (Auto) Coles # (Auto) Seg Neutrophils % Seg Neutrophils # Fibrinogen 100 L* ABG pH ABG pO2 ABG Hemoglobin Oxyhemoglobin Potassium Chloride Carbon Dioxide Creatinine 0.7 L Glucose Alkaline Phosphatase Total Protein Albumin 02/22/22 02/22/22 02/23/22 03:30 10:11 04:08 WBC 11.4 H RBC Hgb 10.5 L Hct 33.9 L MCV 72 L MCH 22 L MCHC 31 L RDW 19.3 H Lymph % (Auto) Coles % (Auto) Lymph # (Auto) Coles # (Auto) Seg Neutrophils % Seg Neutrophils # Fibrinogen 114 L* ABG pH ABG pO2 ABG Hemoglobin Oxyhemoglobin Potassium Chloride Carbon Dioxide Creatinine 0.5 L Glucose Alkaline Phosphatase Total Protein 5.8 L Albumin 02/23/22 02/24/22 02/24/22 04:08 04:03 04:03 WBC RBC Hgb 10.3 L Hct 33.2 L MCV 72 L MCH 22 L MCHC 31 L RDW 19.0 H Lymph % (Auto) Coles % (Auto) Lymph # (Auto) Coles # (Auto) Seg Neutrophils % Seg Neutrophils # Fibrinogen 68 L* ABG pH ABG pO2 ABG Hemoglobin Oxyhemoglobin Potassium Chloride Carbon Dioxide Creatinine 0.5 L Glucose Alkaline Phosphatase 23 L Total Protein 5.2 L Albumin 02/24/22 04:03 WBC RBC Hgb Hct MCV MCH MCHC RDW Lymph % (Auto) Coles % (Auto) Lymph # (Auto) Coles # (Auto) Seg Neutrophils % Seg Neutrophils # Fibrinogen ABG pH ABG pO2 ABG Hemoglobin Oxyhemoglobin Potassium Chloride Carbon Dioxide Creatinine 0.5 L Glucose Alkaline Phosphatase Total Protein Albumin Allied health notes reviewed: nursing
[2022-03-07] MEDS: ENOXAPARIN 40 MG/0.4 ML INJ SUB-Q SCH (21:45)
[2022-03-07] MEDS: oxyCODONE /ACETAMINOPHEN 5-325MG TAB PO PRN (21:46)
[2022-03-07] MEDS: MELATONIN 5 MG TAB PO PRN (23:54)
[2022-03-08] MEDS: PYRIDOSTIGMINE BROMIDE 60 MG TAB PO SCH ×2 (06:13→12:32)
--- NOTE | 2022-03-08 08:26 | Discharge Summary ---
Providers - Providers Date of Admission: 02/06/22 13:59 Date of discharge: 03/08/22 Attending physician: JERRY BASS 02/06/22 12:34 Consult to Physician [CONS] Stat Comment: Consulting Provider: CHESTER DONALD Physician Instructions: Reason For Exam: Myasthenia gravis crisis 02/07/22 07:16 Consult to Physician [CONS] Routine Comment: Consulting Provider: KARISHMA GANDARA Physician Instructions: Reason For Exam: MYASTENIA GRAVIS 02/07/22 10:55 Consult to Dietitian/Nutrition [CONS] Routine Physician Instructions: Reason For Exam: Reason for Consult: Write/Manage Tube Feeding 02/09/22 09:15 Occupational Therapy Evaluate and Treat [CONS] Routine Comment: Reason For Exam: deconditioning Physical Therapy Evaluation and Treat [CONS] Routine Comment: Reason For Exam: deconditioning Speech Therapy Evaluation and Treat [CONS] Routine Reason For Exam: swallow evaluation 02/15/22 10:52 Speech Therapy Evaluation and Treat [CONS] Stat Reason For Exam: SWALLOW EVAL 02/21/22 17:18 Consult to Physician [CONS] Routine Comment: Consulting Provider: KARISHMA GANDARA Physician Instructions: Reason For Exam: myastenia gravis re-eval 02/27/22 18:24 Physical Therapy Evaluation and Treat [CONS] Routine Comment: Reason For Exam: re-assess gait, strength 03/05/22 15:48 Physical Therapy Evaluation and Treat [CONS] Stat Comment: Eval and Treat Reason For Exam: Physical Therapy 03/07/22 09:38 Consult to Physician [CONS] Routine Comment: Consulting Provider: KASANDRA BROWN Physician Instructions: Reason For Exam: bradycardia Primary care physician: MARTA RUIZ Hospitalization Reason for admission: Myasthenia gravis crisis Condition: Serious Hospital course: This is a 36-year-old male with known past medical history of obesity and myasthenia gravis admitted for myasthenia gravis crisis. 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 He was passing through [place] when symptoms started - S/p emergent intubation by anethesia - CT chest w con showed no evidence of thymoma - Neurology consulted, appreciated recommendations - Resumed home meds: Cellcept, Mestinon, and PO Prednisone - Completed X 5 days of IVIG - Plasma exchange initiated on 02/16, Received X2 treament. For a total of 5 exchanges to be completed over 9 days. - CCM also on consult, appreciated recommendations - Patient reported that his neurologist in [place] is Dr. Billie Delgado - Transfer to [facility] was declined, no available ICU beds at this time. They recommend continuing IVIG and possible plasma exchange #Acute Hypoxemic Respiratory Failure #Probable ANTON- On CPAP at home #Former Smoker - most likely related to MG crisis - S/p emergent intubation by anesthesia on 02/07 for airway protection - 02/09 s/p extubation - Completed X5 days of IVIG - Completed plasma exchange and IS - Continue Bipap at night - Aspiration precaution HOB above 30 - PRN O2 supplementation as needed - Continue SPO2 monitoring for SPO2 goal above 92% #Hepatic Hemangiomas - noted from CT chest w/o con - Stable, LFTs within normal range - Outpatient follow up for US and further workups #Obesity - Balanced diet, increase physical activity discharge, outpatient pulmonary follow-up for sleep study, weight reduction. #GI/DVT Prophylaxis - PPI- Pepcid - Lovenox SubQ - SCD to bilateral lower extremities while in bed Hospital Course to Date: 02/07: S/p X1 dose of IV IG overnight, patient reported feeling much better and stronger this am, moving all extremities. Plan to wean off Bipap this am. Okay to start a diet if patient pass bedside swallow. D/W CCM plan for CT chest w con tomorrow to r/o thymoma. Neurology consulted. 02/08: S/p emergent intubation by anethesia yesterday. Now intubated and sedated, RASS -2. Neurology recommendations noted. Resumed home meds. Will wean off sedation this am for possible SAT/SBT. CT chest also noted with no evidence of thymoma. Continue IVIG. Attending received call back from [facility]. Transfer was declined, no available ICU beds at this time. They recommend continuing IVIG and possible plasma exchange. Awaiting on Neurology final recommendations. 02/09: S/p Extubation this am. Desated to 85% on 3L NC, SPO2 improved to 88% on 8L NC. This am CXR noted, worsen opacity of the left side. CCM at the bedside, X1 dose of IV Lasix ordered and place patient on Bipap. Low Threshold for reintubation. Plan of care and the high probability for reintubation was discussed with patient at the bedside. Patient verbalized understanding and agree with current care plan. Continue IVIG, Awaiting on Neurology final recommendations. 02/10: Tolerated Bipap, now on 2L NC this am, SPO2 at 100%. No s/s of any acute respiratory distress noted. This am CXR also noted with significant improvement. Continue IVIGm and Bipap at night. Incentive Spirometer also ordered. advance diet as tolerated. PT/OT/Speech consulted. 02/11: Completed x5days of IVIG overnight. Stable on RA, still complaining of generalized weakness, other stable. Diet advanced to solid this am, patient is tolerating it. Continue IS and Bipap at night. Encourage mobility as tolerated, PT/OT/Speech consult pending. 02/12: CPAP prn, currently on RA. Improved strength to BLE and BUE per patient. 02/13: Increased weakness reported on encounter. increased steroid dose to prednisone 40 mg po daily. Continue pyridostigmine and cellcept. Possible d/c tomorrow. 02/14: Weakness improved however still continues to have difficulty with strength. Still has right eye lid droop. Patient increased to prednisone 60 mg po daily. He has had 4 myasthenia gravis crises in the past and was initiated on high dose steroids with residential taper by her OP neurologist. Pt recommended home with home health care PT. Ambulation is challenging as patient requires a rolling walker. 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 Patient is not a resident of [place]. States his home state is [place]. He has a sister in [place] who's address he uses for mailing purposes. Will work with to coordinate placement. 02/15: worsened strength. Admits to dysphagia and shortness of breath today. Given worsening symptmology transferring back to ICU for close monitoring. Plasma exchange ordered, first tx tomorrow, coordinated with Dr Katya Manley. Will place vascath today/tomorrow AM for exchanges. Steroid dose increased to Prednisone 80 mg po daily in interim. Will attempt to call neurologist tomorrow AM. 02/16: Plan for plasma exchange today. Labs reviewed, cbc/bmp/fibrinogen all unremarkable. Trialysis catheter placed, pt tolerated procedure well. [place] Ovid will be here today do 4L exchange. A total of 5 exchanges will be completed over 9 days. A total of 20 L 5% albumin will be needed, pharmacy was notified yesterday of this. Continue prednisone 80 mg po daily dose. 02/17: No overnight events. No acute complaints. Tolerated PLEX well. Continue steroids and will follow for symptom improvement. 02/18: Plex tx today. XR ordered due to severe rib pain, no rib fx ID. Will continue to follow for sx improvement. 02/19: Doing much better this am. OOB and sitting up in the chair this am, stable on RA. Still complaining of generalized but reported feeling better. Continue plasma exchange and PO prednisone, cellcept, and Mycophenolate. Continue PT/OT. 02/20: Patient seen and examined, clinically showing some improvement, will continue on current Prednisone Dose, patients fibrinogen is lower than 100, we do not have plasma inhouse, patient will undergo PLEX with Albumin and recieve Cyroprecipitated (Ordered) after per the [facility] team. Continue to monitor NIF Continue IMCU care in this critically ill patient. 02/21: Tolerated PLEX yesterday, Fibrinogen improved to 100. Patient has leukocytosis today without fever, no new neuro deficits reported today. Will request Neuro-revaluation. Case management continues to work on safe discharge plan. Plan discussed with the patient. Dispo based on evaluation by Neuro 02/22: Patient seen and examined today, awaiting 4/5 PLEX therapy, awaiting Neurology re-evaluation. Discussed with case management and patient about discharge plans. 02/23: Patient seen and examined, Neurology input noted: change mestinon from 180 mg po qday to 60 mg po tid; prednisone from 80 mg po qday to 40 mg po qday; continue cellcept (per home regimen); plex 4/5 ongoing at bedside today; pt/ot/st evaluation/monitoring; f/u established neurologist within 2 weeks post- discharge. Patient can be discharged after THE LAST PLEX TOMORROW. 02/24/2022 Patient receiving plasma exchange and FFP's 02/25/2022 Patient finished course of plasma exchanges and FFP's Patient to be tapered on prednisone from 80 mg Had extensive discussion with the patient Patient lives in [place] and is on Mestinon and prednisone Patient is willing to fly back to [place] and follow-up with his PCP Patient to be discharged on prednisone tapering dose 60 mg for 5 days 40 mg for 5 days 20 mg for 5 days and then continue at 10 mg 02/26/2022. Patient completed plasma exchange and FFP. Continue prednisone taper. Apparently, pulmonary wants to continue to monitor the patient for 24 hours. Anticipate discharge later today or in a.m. 02/27/2022: Discharge home today. rx for prednisone, mestinon, and cellcept provided. 02/28; d/c cancelled yesterday as patient was experiencing weakness. Feels as though he is "flaring" Mestonin increased to 120 mg q6hr. Monitor for anticholinergic side effects. Continue prednisone at high dose and continue cellcept at home dose 1000 mg po bid. Again this patient likely has suboptimal maintenance therapy...do not lower prednisone dose at this time . PT eval and continued exercises ordered. Unfortunately placement of this patient will be challenging as he lives out of his truck and insurance status will make his placement tough. 02/28: Continue med therapy for MG. PT recommend hhc w/ rolling walker. will to continue to work with patient today. Extensive discussion with CM re: placement during rounds today. Will work towards safe discharge plan. 03/01: Discharge canceled. 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 D/w CM during rounds who will need to find alternative solution...this patient absolutely cannot return to semi-truck as it poses a danger not only to self but to others should he operate it. D/w [employer]ER regarding difficult placement. 03/02: Patient doing well this morning. He states his weakness is gradually improving. Denies any anticholinergic effects of pyridostigmine dosing. Suri cement for the patient continues to be a challenge. Discussed with CM and reviewed note from Saturday. Patient has desire to go back to living in truck. He does not however have a "community"/adequate support system and the current lot that the truck is currently parked in does not have living quarters as previously believed to be the case. Previously when questioning the patient about his community, the patient stated that he does not really have any friends and is estranged from family who could potentially help look after them. He states that the lot that the truck is currently in has no attendants on weekends. Discharging the patient back to his truck would absolutely not be the safest option for this patient and could potentially pose a public hazard should the patient decide to operate his vehicle given his current condition. While the patient has expressed that he will not operate his vehicle, I would recommend that the patient be discharged in a personal snf/apartment/ or living situation with family/friend that does not involve living in his motor vehicle so he can continue with physical rehab therapy. I also recommend that he gets full clearance from an outpatient physician and/or neurologist prior to returning to operate his vehicle. I discussed this with the patient as well as potential concerns of him going back to the truck and he voiced understanding with this. All things considered, given the patient's improvement this weekend, we will continue to follow for improvement in his clinical condition to the point where he may potentially not need assistance. We will continue to work with case management for additional assistance in a safe discharge. 03/03: No acute complaints on encounter. Patient states that he feels like his weakness is improving. We will continue to follow for clinical improvement. 03/04: Dizziness on AM encounter. Awaiting final PT recommendations. Patient strength progressively improving. Again, current maintenance therapy has been optimal, I would not recommend changes to meds at this time. I recommend at the time of discharge that the patient be maintained on the current regimen with OP f/u with his [place] neurologist. Possible discharge early this week if recovery continues to progress to the point where patient is zero assist. 03/06: Patient still reporting dizziness with minimal activity. We will check orthostatic vital signs. Consider fluid bolus as needed 03/07: Patient appears to have symptomatic bradycardia. Patient reports dizziness with exertion. Again, we will follow-up orthostatic vital signs. Check echocardiogram and consider cardiology consultation 03/08: Patient will be discharged home. Cardiology evaluated the patient for the bradycardia and felt that it was asymptomatic and likely related to ANTON. Patient instructed to do no driving until follow-up with PCP. Dedicated discharge time 42 minutes Disposition: HOME / SELF CARE / HOMELESS Final Discharge Diagnosis (Prints w/discharge instructions): Myasthenia gravis crisis, acute hypoxic respiratory failure, probable obstructive sleep apnea, former smoker, hepatic angiomas, morbid obesity Core Measure Documentation - Palliative Care Palliative Care/ Comfort Measures: Not Applicable - Core Measures Any of the following diagnoses?: none Exam - Constitutional Vitals: Temp Pulse Resp BP Pulse Ox 97.7 F 53 L 19 104/69 99 03/08/22 05:34 03/08/22 05:34 03/08/22 05:34 03/08/22 05:34 03/08/22 05:34 General appearance: Present: no acute distress, well-nourished - EENT Eyes: Present: PERRL ENT: hearing intact, clear oral mucosa - Neck Neck: Present: supple, normal ROM - Respiratory Respiratory effort: normal Respiratory: bilateral: CTA - Cardiovascular Heart Sounds: Present: S1 & S2. Absent: rub, click - Extremities Extremities: pulses symmetrical, No edema Peripheral Pulses: within normal limits - Abdominal General gastrointestinal: Present: soft, non-tender, non-distended, normal bowel sounds Male genitourinary: Present: normal - Integumentary Integumentary: Present: clear, warm, dry - Musculoskeletal Musculoskeletal: gait normal, strength equal bilaterally - Psychiatric Psychiatric: appropriate mood/affect, intact judgment & insight - Neurologic Neurologic: CNII-XII intact, moves all extremities Plan Activity: advance as tolerated Weight Bearing Status: Weight Bear as Tolerated Diet: regular Additional Instructions: no driving until cleared by neurology or PCP Follow up with: MARTA RUIZ MD [Primary Care Provider] - 7 Days Prescriptions: Mycophenolate [Cellcept] 1,000 mg PO BID 30 Days #60 tablet Mycophenolate [Cellcept] 1,000 mg PO BID #60 tab predniSONE [Deltasone] 60 mg PO QDAY 30 Days #30 tab predniSONE [Deltasone] 60 mg PO QDAY #30 tablet Pyridostigmine [Mestinon] 120 mg PO Q6HR #120 tablet
[2022-03-08] MEDS: FAMOTIDINE 20 MG TAB PO SCH (09:33)
[2022-03-08] MEDS: ACETAMINOPHEN 325 MG TAB PO PRN (09:33)
[2022-03-08] MEDS: SENNOSIDES/DOCUSATE SODIUM 8.6/50 MG TAB PO SCH (09:35)
[2022-03-08] MEDS: predniSONE 20 MG TAB PO SCH (09:35)
[2022-03-08] MEDS: MYCOPHENOLATE 500 MG TAB PO SCH (09:48)
[2022-03-08 13:02] VITALS: BP 100/70
--- NOTE | 2022-03-08 13:22 | Progress Note ---
Assessment and Plan 36 YO Male with MG currently taking Cellcept, Mycophenolate, and Prednisone presents ED for evaluation. Patient states that he had experienced generalized weakness over the past 1 day with progressive and worsening symptoms over the same timeframe. Patient states that he was able to walk earlier today but he is unable to walk. Patient also acknowledges upper extremity weakness as well as difficulty speaking. EMS was notified and upon arrival the patient was found to be in distress and subsequently transported to [facility] for further care and evaluation of the aforementioned symptoms. The patient was seen and evaluated in the emergency department. All lab and imaging studies reviewed. Patient found to have myasthenia gravis crisis with increased risk for worsening symptoms as well as development of acute hypoxemic respiratory failure. Patient placed on noninvasive positive pressure ventilation in the emergency department and admitted to ICU. IVIG ordered in the emergency department. Patient denies fever, chills, chest pain, palpitation productive cough, skin rash and recent Contact, known exposure to COVID-19. Patient eventually intubated and placed on mechanical ventilation. Patient extubated now. Patient has history vaping 2 times a day x 14 years. Stopped vaping 3 years ago. Denies alcohol abuse. Used Marijuna in his teenage years. Not used Marijuana for long time. 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 Not . Has no children. No known drug allergies. Patient has history of Sleep apnea. Uses CPAP 12 cm H2O during night time. Patient moved to medical floor. Patient Obese, awake . Patient is resting on room air. O2 saturation 99%. No acute respiratory distress at rest. Cpap on standy in the room. Patient states that his weakness is better. Patient afebrile. No leukocytosis, Blood pressure 100/70, rate 77, respirations 18. Chest xray 02/10/22 Previous density of the left has almost completely cleared with only minimal basilar atelectasis remaining. Right lung field clear. No pneumothorax. CT scan of chest 02/08/[address] evidence of thymoma. Hypoattenuating lesions of the liver statistically reflect hepatic hemangiomas. One of these lesions demonstrate characteristic peripheral puddling of contrast, the second does not clearly demonstrate specific pattern of enhancement. Ultrasound targeting these lesions may be useful for further characterization and confirmation of hemangioma. Moderate subsegmental atelectasis of the bilateral lungs. Satisfactory positioning of endotracheal tube and esophagogastric tube. Chest xray done 02/17/22 reported No significant pulmonary or pleural abnormality. No pneumothorax. Left rib series done on 02/18/22 reported he left ribs appear unremarkable. There is no visible left rib fracture. No acute pulmonary disease. Patient is on Po Prednisone, Albuterol inhaler, S/C Lovenox and famotidine. I - Patient Problems (1) Acute hypoxemic respiratory failure Current Visit: Yes Status: Acute Plan to address problem: CPAP during night time. Continue prednisone. Continue S/C Lovenox. Continue famotidine. Albuterol inhaler prn for shortness of breath. (2) Obesity Current Visit: Yes Status: Acute Qualifiers: Body mass index: BMI 33.0-33.9 Plan to address problem: Counseled to loose weight Exercise and diet. (3) Sleep apnea Current Visit: Yes Status: Acute Plan to address problem: Patient says he has history of sleep apnea. No sleep study results available at this time. Continue CPAP as she is using at home. Recommend to loose weight. Explained sleep hygiene. Recommend not to drive or operate heavy equipment with sleepiness. Avoid alcohol, sedatives and Narcotics If sleep study is while back, recommend to repeat sleep study as out patient. (4) Myasthenia gravis Current Visit: Yes Status: Acute Plan to address problem: Patient finished course of plasmapheresis. Patient says weakness is got better. Management as per primary care and neurology. Subjective Date of service: 03/08/22 Principal diagnosis: Myasthenic crisis; Obesity; Possible ANTON/OHS; Blurry vision; Hypokalemia Interval history: 36 YO Male with MG currently taking Cellcept, Mycophenolate, and Prednisone presents ED for evaluation. Patient states that he had experienced generalized weakness over the past 1 day with progressive and worsening symptoms over the same timeframe. Patient states that he was able to walk earlier today but he is unable to walk. Patient also acknowledges upper extremity weakness as well as difficulty speaking. EMS was notified and upon arrival the patient was found to be in distress and subsequently transported to [facility] for further care and evaluation of the aforementioned symptoms. The patient was seen and evaluated in the emergency department. All lab and imaging studies reviewed. Patient found to have myasthenia gravis crisis with increased risk for worsening symptoms as well as development of acute hypoxemic respiratory failure. Patient placed on noninvasive positive pressure ventilation in the emergency department and admitted to ICU. IVIG ordered in the emergency department. Patient denies fever, chills, chest pain, palpitation productive cough, skin rash and recent Contact, known exposure to COVID-19. Patient eventually intubated and placed on mechanical ventilation. Patient extubated now. Patient has history vaping 2 times a day x 14 years. Stopped vaping 3 years ago. Denies alcohol abuse. Used Marijuna in his teenage years. Not used Marijuana for long time. 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 Not . Has no children. No known drug allergies. Patient has history of Sleep apnea. Uses CPAP 12 cm H2O during night time. Patient moved to medical floor. Patient Obese, awake . Patient is resting on room air. O2 saturation 99%. No acute respiratory distress at rest. Cpap on standy in the room. Patient states that his weakness is better. Patient afebrile. No leukocytosis, Blood pressure 100/70, rate 77, respirations 18. Chest xray 02/10/22 Previous density of the left has almost completely cleared with only minimal basilar atelectasis remaining. Right lung field clear. No pneumothorax. CT scan of chest 02/08/[address] evidence of thymoma. Hypoattenuating lesions of the liver statistically reflect hepatic hemangiomas. One of these lesions demonstrate characteristic peripheral puddling of contrast, the second does not clearly demonstrate specific pattern of enhancement. Ultrasound targeting these lesions may be useful for further characterization and confirmation of hemangioma. Moderate subsegmental atelectasis of the bilateral lungs. Satisfactory positioning of endotracheal tube and esophagogastric tube. Chest xray done 02/17/22 reported No significant pulmonary or pleural abnormality. No pneumothorax. Left rib series done on 02/18/22 reported he left ribs appear unremarkable. There is no visible left rib fracture. No acute pulmonary disease. Patient is on Po Prednisone, Albuterol inhaler, S/C Lovenox and famotidine. Objective Vital Signs - 12hr 03/08/22 03/08/22 03/08/22 05:34 09:33 09:38 Temperature 97.7 F Pulse Rate 53 L 67 Respiratory 19 20 Rate Blood Pressure Blood Pressure [Left] Blood Pressure 104/69 [Right] O2 Sat by Pulse 99 100 Oximetry 03/08/22 03/08/22 09:53 12:39 Temperature 98.1 F 98.7 F Pulse Rate 72 77 Respiratory 18 18 Rate Blood Pressure 100/70 Blood Pressure 119/70 [Left] Blood Pressure [Right] O2 Sat by Pulse 100 99 Oximetry Constitutional: no acute distress, alert, other (young obese male without increased respiratory effort at rest) Eyes: non-icteric, other (RIJ HD catheter) ENT: oropharynx moist Neck: supple, no lymphadenopathy, no JVD, other (large circumference) Effort: normal Ascultation: Bilateral: diminished breath sounds Percussion: Bilateral: not dull Cardiovascular: regular rate and rhythm Gastrointestinal: normoactive bowel sounds, soft, non-tender, non-distended (protuberant) Integumentary: normal Extremities: no cyanosis, no edema, pulses normal, no ischemia or petechiae Neurologic: non-focal exam (grossly), pupils equal and round, CN II-XII normal, other (weak (3-4/5)) Psychiatric: mood appropriate, affect normal CBC and BMP: 02/24/22 04:03 02/24/22 04:03 ABG, PT/INR, D-dimer: ABG ABG pH 7.333 pH Units (7.350-7.450) L 02/08/22 09:20 ABG pCO2 48.2 mm Hg 02/08/22 09:20 ABG pO2 114.7 mm Hg (80.0-90.0) H 02/08/22 09:20 ABG O2 Saturation 97.9 % (95.0-99.0) 02/08/22 09:20 Abnormal lab findings: Abnormal Labs 02/06/22 02/06/22 02/06/22 12:39 12:39 13:59 WBC RBC 5.75 H Hgb Hct MCV 74 L MCH 23 L MCHC 30 L RDW 16.9 H Lymph % (Auto) 6.4 L Sully % (Auto) Lymph # (Auto) 0.5 L Sully # (Auto) Seg Neutrophils % 89.3 H Seg Neutrophils # Fibrinogen ABG pH ABG pO2 ABG Hemoglobin 12.6 L Oxyhemoglobin Potassium 3.5 L Chloride 109.1 H Carbon Dioxide 20 L Creatinine 0.7 L Glucose 113 H Alkaline Phosphatase Total Protein Albumin 02/07/22 02/07/22 02/08/22 04:15 12:00 04:23 WBC RBC 5.10 H Hgb 11.5 L 11.0 L Hct MCV 72 L 74 L MCH 23 L 22 L MCHC 30 L RDW 17.3 H 17.1 H Lymph % (Auto) Sully % (Auto) 9.1 H Lymph # (Auto) Sully # (Auto) Seg Neutrophils % Seg Neutrophils # Fibrinogen ABG pH ABG pO2 72.6 L ABG Hemoglobin 12.2 L Oxyhemoglobin 94.4 L Potassium Chloride Carbon Dioxide Creatinine Glucose Alkaline Phosphatase Total Protein Albumin 02/08/22 02/08/22 02/09/22 04:23 09:20 04:50 WBC RBC Hgb 10.4 L Hct 33.7 L MCV 73 L MCH 22 L MCHC 31 L RDW 17.5 H Lymph % (Auto) Sully % (Auto) Lymph # (Auto) Sully # (Auto) Seg Neutrophils % Seg Neutrophils # Fibrinogen ABG pH 7.333 L ABG pO2 114.7 H ABG Hemoglobin 11.1 L Oxyhemoglobin Potassium Chloride 109.3 H Carbon Dioxide Creatinine 0.6 L Glucose Alkaline Phosphatase Total Protein Albumin 02/09/22 02/10/22 02/11/22 04:50 04:50 04:38 WBC 4.4 L 3.3 L RBC Hgb 10.1 L 10.4 L Hct 32.9 L 33.6 L MCV 73 L 73 L MCH 22 L 23 L MCHC 31 L 31 L RDW 17.2 H 17.0 H Lymph % (Auto) Sully % (Auto) Lymph # (Auto) Sully # (Auto) Seg Neutrophils % Seg Neutrophils # Fibrinogen ABG pH ABG pO2 ABG Hemoglobin Oxyhemoglobin Potassium Chloride Carbon Dioxide Creatinine Glucose 107 H Alkaline Phosphatase Total Protein Albumin 02/11/22 02/12/22 02/13/22 04:38 04:25 04:17 WBC 3.7 L 3.5 L RBC Hgb 10.5 L 10.8 L Hct 34.5 L MCV 73 L 73 L MCH 22 L 22 L MCHC 30 L 30 L RDW 16.9 H 17.5 H Lymph % (Auto) Sully % (Auto) Lymph # (Auto) Sully # (Auto) Seg Neutrophils % Seg Neutrophils # Fibrinogen ABG pH ABG pO2 ABG Hemoglobin Oxyhemoglobin Potassium Chloride Carbon Dioxide Creatinine 0.7 L Glucose 101 H Alkaline Phosphatase Total Protein Albumin 02/16/22 02/16/22 02/18/22 04:52 04:52 07:18 WBC RBC Hgb 11.4 L 11.4 L Hct 35.3 L MCV 71 L 72 L MCH 23 L 23 L MCHC RDW 17.4 H 17.3 H Lymph % (Auto) 43.5 H Sully % (Auto) 7.6 H 7.6 H Lymph # (Auto) Sully # (Auto) Seg Neutrophils % 71.5 H Seg Neutrophils # Fibrinogen ABG pH ABG pO2 ABG Hemoglobin Oxyhemoglobin Potassium Chloride Carbon Dioxide Creatinine 0.6 L Glucose Alkaline Phosphatase Total Protein Albumin 3.5 L 02/18/22 02/18/22 02/20/22 07:18 07:18 04:23 WBC RBC 5.22 H Hgb 11.6 L Hct MCV 73 L MCH 22 L MCHC 31 L RDW 18.0 H Lymph % (Auto) Sully % (Auto) Lymph # (Auto) Sully # (Auto) Seg Neutrophils % Seg Neutrophils # Fibrinogen 144 L* ABG pH ABG pO2 ABG Hemoglobin Oxyhemoglobin Potassium Chloride Carbon Dioxide Creatinine 0.5 L Glucose Alkaline Phosphatase Total Protein Albumin 02/20/22 02/20/22 02/21/22 04:23 04:23 09:50 WBC 13.1 H RBC 5.36 H Hgb Hct MCV 73 L MCH 22 L MCHC 31 L RDW 18.4 H Lymph % (Auto) Sully % (Auto) Lymph # (Auto) Sully # (Auto) 1.0 H Seg Neutrophils % Seg Neutrophils # 8.5 H Fibrinogen 89 L* ABG pH ABG pO2 ABG Hemoglobin Oxyhemoglobin Potassium Chloride Carbon Dioxide Creatinine 0.5 L Glucose 107 H Alkaline Phosphatase Total Protein Albumin 02/21/22 02/21/22 02/22/22 09:50 09:50 03:30 WBC 11.7 H RBC 5.16 H Hgb 11.4 L Hct MCV 73 L MCH 22 L MCHC 31 L RDW 18.5 H Lymph % (Auto) Sully % (Auto) Lymph # (Auto) Sully # (Auto) Seg Neutrophils % Seg Neutrophils # Fibrinogen 100 L* ABG pH ABG pO2 ABG Hemoglobin Oxyhemoglobin Potassium Chloride Carbon Dioxide Creatinine 0.7 L Glucose Alkaline Phosphatase Total Protein Albumin 02/22/22 02/22/22 02/23/22 03:30 10:11 04:08 WBC 11.4 H RBC Hgb 10.5 L Hct 33.9 L MCV 72 L MCH 22 L MCHC 31 L RDW 19.3 H Lymph % (Auto) Sully % (Auto) Lymph # (Auto) Sully # (Auto) Seg Neutrophils % Seg Neutrophils # Fibrinogen 114 L* ABG pH ABG pO2 ABG Hemoglobin Oxyhemoglobin Potassium Chloride Carbon Dioxide Creatinine 0.5 L Glucose Alkaline Phosphatase Total Protein 5.8 L Albumin 02/23/22 02/24/22 02/24/22 04:08 04:03 04:03 WBC RBC Hgb 10.3 L Hct 33.2 L MCV 72 L MCH 22 L MCHC 31 L RDW 19.0 H Lymph % (Auto) Sully % (Auto) Lymph # (Auto) Sully # (Auto) Seg Neutrophils % Seg Neutrophils # Fibrinogen 68 L* ABG pH ABG pO2 ABG Hemoglobin Oxyhemoglobin Potassium Chloride Carbon Dioxide Creatinine 0.5 L Glucose Alkaline Phosphatase 23 L Total Protein 5.2 L Albumin 02/24/22 04:03 WBC RBC Hgb Hct MCV MCH MCHC RDW Lymph % (Auto) Sully % (Auto) Lymph # (Auto) Sully # (Auto) Seg Neutrophils % Seg Neutrophils # Fibrinogen ABG pH ABG pO2 ABG Hemoglobin Oxyhemoglobin Potassium Chloride Carbon Dioxide Creatinine 0.5 L Glucose Alkaline Phosphatase Total Protein Albumin Allied health notes reviewed: nursing
--- NOTE | 2022-03-08 13:46 | Electrocardiograph Report ---
[facility] Test Date: 2022-03-07 Test Time: 14:09:57 Pat Name: DEJA CHICAS Department: Room: A390 1 Gender: M [employer]: NAHUN : 1985 Requested By: MAGDI BROWN Order Number: [id number] Reading MD: Magdi Brown Measurements Intervals [place] Rate: 65 P: 40 NE: 171 QRS: 9 QRSD: 113 T: 43 QT: 400 QTc: 416 Interpretive Statements Sinus rhythm No previous ECG available for comparison Electronically Signed On 03-08-2022 13:45:29 EDT by Magdi Brown
== END 2022-03-08 16:10 | disposition home or self-care (01) | DRG 56 ==
LOC: ED 11:43 → CC1 13:59 → IMCU 02-10 18:30 → CC1 02-15 11:11 → IMCU 02-18 05:00 → 3A 02-25 18:52
PROVIDERS: ADMIT Internal Medicine; ATTEND Hospitalist
PROC: 4A033R1 Measurement of Arterial Saturation, Peripheral, Percutaneous Approach (ICD-10-PCS; 2022-02-06)
PROC: 5A09357 Assistance with Respiratory Ventilation, Less than 24 Consecutive Hours, Continuous Positive Airway Pressure (ICD-10-PCS; 2022-02-06)
PROC: 5A1945Z Respiratory Ventilation, 24-96 Consecutive Hours (ICD-10-PCS; principal; 2022-02-07)
PROC: 0BH17EZ Insertion of Endotracheal Airway into Trachea, Via Natural or Artificial Opening (ICD-10-PCS; 2022-02-07)
PROC: 5A09457 Assistance with Respiratory Ventilation, 24-96 Consecutive Hours, Continuous Positive Airway Pressure (ICD-10-PCS; 2022-02-09)
PROC: 05HY33Z Insertion of Infusion Device into Upper Vein, Percutaneous Approach (ICD-10-PCS; 2022-02-16)
PROC: B543ZZA Ultrasonography of Right Jugular Veins, Guidance (ICD-10-PCS; 2022-02-16)
PROC: 5A09557 Assistance with Respiratory Ventilation, Greater than 96 Consecutive Hours, Continuous Positive Airway Pressure (ICD-10-PCS; 2022-02-16)
PROC: 30233M1 Transfusion of Nonautologous Plasma Cryoprecipitate into Peripheral Vein, Percutaneous Approach (ICD-10-PCS; 2022-02-20)
PROC: 30233K1 Transfusion of Nonautologous Frozen Plasma into Peripheral Vein, Percutaneous Approach (ICD-10-PCS; 2022-02-24)
PROC: 5A09457 Assistance with Respiratory Ventilation, 24-96 Consecutive Hours, Continuous Positive Airway Pressure (ICD-10-PCS; 2022-03-03)
DX: G70.01 Myasthenia gravis with (acute) exacerbation (principal); J96.01 Acute respiratory failure with hypoxia; G47.33 Obstructive sleep apnea (adult) (pediatric); D18.03 Hemangioma of intra-abdominal structures; E66.9 Obesity, unspecified; Z68.32 Body mass index [BMI] 32.0-32.9, adult; E87.6 Hypokalemia; H53.8 Other visual disturbances; E87.2 Acidosis; D18.09 Hemangioma of other sites; D72.819 Decreased white blood cell count, unspecified; Z87.891 Personal history of nicotine dependence
CPT/HCPCS: 36415; 36600; 71045; 71260; 74018; 74176; 80048; 80053; 82040; 82803; 82962; 83516; 84160; 84443; 85025; 85027; 85384; 86850; 86900; 86901; 86965; 87070; 87205; 93005; 93306; 94002; 94003; 94640; 94660; 94760; G0378; J3490; J7510; C8929; J0330; J0610; J1200; J1561; J1650; J1885; J1940; J2060; J2405; J2704; J3010; J7030; J7040; J7050; J7512; J7517; P9012; P9017; P9045; Q9967